=== PATIENT | male | born 1935 | race Caucasian/White ===

== ENCOUNTER → 2016-11-22 | Outpatient (REF) | payer OTHER | LOC: M LAB REF 16:17 | PROVIDERS: ATTEND Internal Medicine | DX: E21.3 Hyperparathyroidism, unspecified (principal) ==

== ENCOUNTER → 2017-05-29 | Outpatient (REF) | payer OTHER ==
[2017-05-29 17:48] LABS: PTH INTACT 58.7 PG/ML (14.0-72.0)
== END ==
LOC: M LAB REF 16:23
DX: N25.81 Secondary hyperparathyroidism of renal origin (principal)
CPT/HCPCS: 83970

== ENCOUNTER 2017-07-18 15:47 | Emergency (ER) | payer OTHER | END 2017-07-18 16:59 | disposition left against medical advice (07) | LOC: M ED 15:47 | DX: Z53.21 Procedure and treatment not carried out due to patient leaving prior to being seen by health care provider (principal) ==

== ENCOUNTER → 2017-07-18 | Outpatient (REF) | payer OTHER | LOC: M LAB REF 15:06 | DX: R10.31 Right lower quadrant pain (principal) ==

== ENCOUNTER → 2017-07-18 | Outpatient (CLI) | payer OTHER ==
[2017-07-18 16:24] LABS: BASO # 0.1 10^3/uL (0.0-0.2); BASO % 0.5 % (0.0-1.0); EOS % 0.1 % (0.0-3.0); HEMATOCRIT 38.4 % (42.0-52.0); HEMOGLOBIN 12.1 g/dl (14.0-18.0); IMMATURE GRANULOCYTE % 0.4 % (0-3.0); LYMPH # 0.5 10^3/uL (1.5-4.5); LYMPH % 4.7 % (24.0-44.0); MEAN CORPUSCULAR HEMOGLOBIN 30.3 pg (27.0-33.0); MEAN CORPUSCULAR HGB CONC 31.5 g/dl (32.0-36.5); MEAN CORPUSCULAR VOLUME 96.2 fl (80.0-96.0); MONO # 1.2 10^3/uL (0.0-0.8); MONO % 10.5 % (0.0-5.0); NEUTROPHILS # 9.2 10^3/uL (1.8-7.7); NEUTROPHILS % 83.8 % (36.0-66.0); PLATELET COUNT, AUTOMATED 219 10^3/uL (150-450); RED BLOOD COUNT 3.99 10^6/uL (4.30-6.10); RED CELL DISTRIBUTION WIDTH 14.3 % (11.5-14.5)
[2017-07-18 16:45] LABS: ALBUMIN 3.8 GM/DL (3.2-5.2); ALBUMIN/GLOBULIN RATIO 1.06 (1.00-1.93); ALKALINE PHOSPHATASE 197 U/L (45-117); ALT/SGPT 23 U/L (12-78); ANION GAP 8 MEQ/L (8-16); AST/SGOT 22 U/L (7-37); BILIRUBIN,TOTAL 0.4 MG/DL (0.2-1.0); BLOOD UREA NITROGEN 30 MG/DL (7-18); CALCIUM LEVEL 8.6 MG/DL (8.8-10.2); CARBON DIOXIDE LEVEL 25 MEQ/L (21-32); CHLORIDE LEVEL 110 MEQ/L (98-107); CREATININE FOR GFR 2.21 MG/DL (0.70-1.30); GLOMERULAR FILTRATION RATE 30.4 (>35); GLUCOSE, FASTING 127 MG/DL (70-100); POTASSIUM SERUM 4.4 MEQ/L (3.5-5.1); SODIUM LEVEL 143 MEQ/L (136-145); TOTAL PROTEIN 7.4 GM/DL (6.4-8.2)
== END ==
LOC: M WUC 14:48
DX: R10.31 Right lower quadrant pain (principal); R93.5 Abnormal findings on diagnostic imaging of other abdominal regions, including retroperitoneum
CPT/HCPCS: 80053

== ENCOUNTER → 2017-10-20 | Outpatient (REF) | payer OTHER ==
[2017-10-20 13:40] LABS: INR 2.59; PROTHROMBIN TIME 28.8 SECONDS (12.4-14.5)
== END ==
LOC: M LAB REF 13:18
DX: M54.5 Low back pain (principal); Z79.01 Long term (current) use of anticoagulants
CPT/HCPCS: 85610

== ENCOUNTER → 2017-10-28 | Outpatient (CLI) | payer OTHER | LOC: M RAD 10:36 | DX: M47.897 Other spondylosis, lumbosacral region (principal); M48.061 Spinal stenosis, lumbar region without neurogenic claudication | CPT/HCPCS: 72131 ==

== ENCOUNTER → 2017-11-27 | Outpatient (REF) | payer OTHER ==
[2017-11-27 12:49] LABS: PTH INTACT 88.7 PG/ML (18.5-88.0)
== END ==
LOC: M LAB REF 12:10
DX: N25.81 Secondary hyperparathyroidism of renal origin (principal)
CPT/HCPCS: 83970

== ENCOUNTER → 2018-06-04 | Outpatient (REF) | payer OTHER ==
[~2018-06-04] MED LIST: ALLO100T PO; BISO5TAB5 PO; BUSP10TA PO; CART240C3 PO; FURO40TA2 PO; HYDR-3910 PO; LIPI10TA PO; LOSA50TA88 PO; PRIL20CA9 PO; TRAZ-160 PO; XARE15TA PO
== END ==
LOC: M LAB REF 12:04
PROVIDERS: ATTEND Internal Medicine
DX: N25.81 Secondary hyperparathyroidism of renal origin (principal); N18.4 Chronic kidney disease, stage 4 (severe)

== ENCOUNTER → 2018-06-11 | Outpatient (REF) | payer OTHER ==
[2018-06-11 13:23] LABS: IRON (FE) 40 UG/DL (65-175); PERCENT SATURATION 9.2 % (19.7-50.0); TOTAL IRON BINDING CAPACITY 435 UG/DL (250-450); TOTAL PROTEIN 6.9 GM/DL (6.4-8.2)
[2018-06-11 13:26] LABS: FOLATE 8.1 NG/ML
[2018-06-12 11:08] LABS: VITAMIN B12 LEVEL 593 PG/ML (232-1245)
[2018-06-12 13:53] LABS: ALBUMIN 3.74 GM/DL (3.29-5.55); ALBUMIN % 54.2 % (55.8-66.1); ALPHA-1-GLOBULIN % 6.6 % (2.9-4.9); ALPHA-1-GLOBULINS 0.46 GM/DL (0.17-0.41)
[2018-06-12 13:54] LABS: ALPHA-2-GLOBULINS 0.91 GM/DL (0.42-0.99); ALPHA-2-GLOBULINS % 13.2 % (7.1-11.8); BETA-1-GLOBULINS 0.52 GM/DL (0.28-0.60); BETA-1-GLOBULINS % 7.6 % (4.7-7.2); BETA-2-GLOBULINS 0.39 GM/DL (0.19-0.55); BETA-2-GLOBULINS % 5.6 % (3.2-6.5); GAMMA GLOBULIN % 12.8 % (11.1-18.8); GAMMA GLOBULINS 0.88 GM/DL (0.65-1.58)
== END ==
LOC: M LAB REF 12:39
PROVIDERS: ATTEND Internal Medicine
DX: D64.9 Anemia, unspecified (principal)

== ENCOUNTER → 2018-07-24 | Outpatient (REF) | payer OTHER ==
[2018-07-24 14:58] LABS: PERCENT SATURATION 11.4 % (19.7-50.0)
== END ==
LOC: M LAB REF 13:31
PROVIDERS: ATTEND Internal Medicine Nephrology
DX: D50.9 Iron deficiency anemia, unspecified (principal)

== ENCOUNTER 2018-09-04 09:49 | Emergency (ER) | payer MEDICARE, OTHER ==
[~2018-09-04] VITALS: Ht 177.8 cm; Wt 82.8 kg
[2018-09-04] MEDS ORDERED: iron (10:16)
[2018-09-04 11:11] LABS: BASO # 0.1 10^3/uL (0.0-0.2); BASO % 1.1 % (0.0-1.0); EOS # 0.1 10^3/uL (0.0-0.50); EOS % 0.9 % (0.0-3.0); HEMOGLOBIN 12.9 g/dl (13.5-17.5); LYMPH # 0.8 10^3/uL (1.5-4.5); LYMPH % 8.7 % (24.0-44.0); MEAN CORPUSCULAR HEMOGLOBIN 31.7 pg (27.0-33.0); MEAN CORPUSCULAR HGB CONC 32.3 g/dl (32.0-36.5); MEAN CORPUSCULAR VOLUME 98.3 fl (80.0-96.0); MONO # 0.8 10^3/uL (0.0-0.8); MONO % 9.2 % (0.0-5.0); NEUTROPHILS # 7.2 10^3/uL (1.8-7.7); NEUTROPHILS % 79.8 % (36.0-66.0); PLATELET COUNT, AUTOMATED 289 10^3/uL (150-450); RED BLOOD COUNT 4.07 10^6/uL (4.30-6.10)
[2018-09-04] MEDS ORDERED: MORPHINE 2 MG/ML 1ML SYRINGE (J2270) IV ONE (11:15)
[2018-09-04] MEDS ORDERED: NS 1,000 ML IV SCH (11:15)
[2018-09-04 11:24] LABS: INR 1.38; PROTHROMBIN TIME 17.2 SECONDS (12.1-14.4)
[2018-09-04 11:25] LABS: PARTIAL THROMBOPLASTIN TIME 38.3 SECONDS (25.4-37.6)
[2018-09-04 11:43] LABS: CALCIUM LEVEL 9.5 MG/DL (8.8-10.2); CREATININE FOR GFR 1.92 MG/DL (0.70-1.30); GLOMERULAR FILTRATION RATE 35.7 (>35); PERCENT SATURATION 17.8 % (19.7-50.0); POTASSIUM SERUM 4.3 MEQ/L (3.5-5.1)
[2018-09-04] MEDS: GASTROGRAFIN SOLUTION 30ML PO SCH ×2 (11:51→12:15)
--- NOTE | 2018-09-04 14:11 | REP ---
CT ABDOMEN AND PELVIS WITHOUT IV, WITH ORAL CONTRAST: CT abdomen and pelvis performed in the axial plain with sagittal and coronal reconstruction images, following oral contrast administration as per standard protocol. There is a large right pleural effusion with adjacent right basilar atelectatic change. There is fibroatelectatic change in the left lung base. The liver is grossly unremarkable. Calcified granulomas are seen in the spleen. The adrenal glands are thickened without a discrete mass. Pancreas is grossly unremarkable. There is significant right renal atrophy. There is no hydronephrosis bilaterally. There are bilateral renal cysts. There is moderate atherosclerotic calcification of the abdominal aorta without aneurysm. I see no adenopathy. There is no free air or free fluid. No bowel thickening is seen. There is no appendicitis. There is extensive sigmoid diverticulosis without acute diverticulitis. Urinary bladder is grossly unremarkable. Multiple metallic densities are seen in the prostate. There is a small left inguinal hernia containing fat and a small portion of nonobstructive sigmoid colon. There is a small umbilical hernia containing fat. There are degenerative changes of the spine. IMPRESSION: Large right pleural effusion. No evidence of colitis. Sigmoid diverticulosis. No appendicitis. No free air or free fluid. Small left inguinal hernia contains fat and a small portion of the sigmoid colon. Electronically Signed by Neel Dias MD 09/05/2018 03:28 P
--- NOTE | 2018-09-04 15:51 | REP ---
HISTORY: Right pleural effusion. COMPARISON: 07/02/2018, the latest prior two view exam. The dual chamber bipolar pacemaker device is unchanged. The technique utilized in obtaining the radiograph has magnified the cardiac silhouette and accentuated the interstitial markings. There is cardiomegaly accentuated by technique, status quo. There is right-sided costophrenic angle and cardiophrenic angle blunting with a right lower patchy opacity essentially unchanged from the prior exam. I see no evidence of an acute patchy parenchymal opacity or pleural effusion. There is a nodule in the left lower lung field which is stable not only from the latest prior examination but from an older examination of 04/22/2014. There is no significant change in the osseous structures. IMPRESSION: Stable appearing chronic changes as described above. Electronically Signed by Grzegorz Lemons DO 09/04/2018 04:00 P
--- NOTE | 2018-09-04 15:56 | REP ---
CT CHEST WITHOUT IV CONTRAST: CT chest is performed without IV contrast. Sagittal and coronal reconstruction images are performed. There is a large right pleural effusion with mild adjacent atelectatic change in the right lung. There is fibroatelectatic change in the left lower lobe with several calcified granulomas. Atherosclerotic calcifications are seen in the thoracic aorta without aneurysm. I see no evidence of significant mediastinal or axillary adenopathy. Heart is not significantly enlarged. There is no pericardial effusion. There are degenerative changes of the spine. IMPRESSION: Large right pleural effusion. No other acute findings. Electronically Signed by Nele Dias MD 09/05/2018 03:30 P
[2018-09-04 15:58] VITALS: O2SAT 98
[2018-09-04 16:00] VITALS: BP 168/72
[2018-09-04] MEDS ORDERED: FUROSEMIDE 40 MG/4 ML VIAL (J1940) IV ONE (16:15)
[2018-09-04] MEDS ORDERED: COLA100C5 PO (16:17)
[2018-09-04] MEDS ORDERED: MIRA3350 PO (16:17)
== END 2018-09-04 16:38 | disposition home or self-care (01) ==
LOC: M ED 09:49
DX: I50.9 Heart failure, unspecified (principal); J90 Pleural effusion, not elsewhere classified; K62.5 Hemorrhage of anus and rectum; C61 Malignant neoplasm of prostate; R63.4 Abnormal weight loss; K57.32 Diverticulitis of large intestine without perforation or abscess without bleeding; Z95.0 Presence of cardiac pacemaker; Z79.899 Other long term (current) drug therapy
CPT/HCPCS: 71045; 71250; 74176; 80048; 83550; 83880; 85025; 85610; 85730; 86850; 86900; 86901; 99284; J1940; J2270; Q9963

== ENCOUNTER → 2018-11-03 | Outpatient (CLI) | payer MEDICARE ==
[~2018-11-03] MED LIST changes: +COLA100C5 PO; +MIRA3350 PO; -TRAZ-160 PO; +TRAZ-252 PO; +iron
--- NOTE | 2018-11-03 10:16 | REP ---
Clinical: Pleural effusion. Technique: PA and lateral. Comparison: 09/04/2018 Findings: Moderate pleural effusion increased from prior examination. Associated right basilar atelectasis. Left hemithorax appears clear. Mediastinum and cardiac silhouette stable. Impression: Moderate right pleural effusion with passive atelectasis. Electronically Signed by Mariusz Mackenzie MD 11/03/2018 10:08 A
== END ==
LOC: M RAD 09:34
PROVIDERS: ATTEND Internal Medicine Cardiovascular Disease
DX: J90 Pleural effusion, not elsewhere classified (principal)

== ENCOUNTER → 2018-11-30 | Outpatient (CLI) | payer MEDICARE ==
--- NOTE | 2018-11-30 12:07 | REP ---
Clinical: Follow up pleural effusion. Technique: PA and lateral. Comparison: 11/03/2018. Findings: Visualized mediastinum and cardiac silhouette are normal. Left hemithorax is relatively well aerated and stable / clear. Few scattered calcified granulomata are again noted. Elevation to the right hemidiaphragm with pleuroparenchymal changes involving the right mid to lower lung zone remain essentially unchanged. These findings may reflect chronic changes although an acute atelectasis or effusion cannot be excluded. No pneumothorax. Skeletal structures intact. Pacemaker noted. Impression: Essentially stable appearance to the right hemithorax as described above. Findings likely represent chronic changes although acute process cannot definitively be excluded. Electronically Signed by Mariusz Mackenzie MD 11/30/2018 11:58 A
== END ==
LOC: M WUC 11:38
PROVIDERS: ATTEND Internal Medicine Cardiovascular Disease
DX: J90 Pleural effusion, not elsewhere classified (principal)

== ENCOUNTER → 2019-05-07 | Outpatient (REF) | payer MEDICARE ==
[~2019-05-07] MED LIST changes: -BISO5TAB5 PO; +BISO5TAB9 PO
[2019-05-07 17:59] LABS: ALBUMIN 3.4 GM/DL (3.2-5.2); CALCIUM LEVEL 9.5 MG/DL (8.8-10.2); CREATININE FOR GFR 2.93 MG/DL (0.70-1.30); GLOMERULAR FILTRATION RATE 21.9 (>35); MAGNESIUM LEVEL 2.3 MG/DL (1.8-2.4); PHOSPHORUS LEVEL 3.4 MG/DL (2.5-4.9); POTASSIUM SERUM 3.4 MEQ/L (3.5-5.1); URIC ACID 7.5 MG/DL (3.5-7.2)
== END ==
LOC: M LAB REF 17:26
PROVIDERS: ATTEND Internal Medicine Nephrology
DX: N18.3 Chronic kidney disease, stage 3 (moderate) (principal); M1A.30X0 Chronic gout due to renal impairment, unspecified site, without tophus (tophi); E83.42 Hypomagnesemia

== ENCOUNTER → 2019-05-07 | Outpatient (CLI) | payer MEDICARE ==
[~2019-05-07] MED LIST changes: +ACET-683 PO; +BISO5TAB14 PO; -BISO5TAB9 PO; +HYDR1CRE9 TOP; +OMEP1CAP73 PO; +POTA10TA16 PO; +ZYLO300T6 PO
[2019-05-07 17:49] LABS: HEMATOCRIT 37.9 % (42.0-52.0); HEMOGLOBIN 12.3 g/dl (13.5-17.5); MEAN CORPUSCULAR HEMOGLOBIN 34.6 pg (27.0-33.0); MEAN CORPUSCULAR HGB CONC 32.5 g/dl (32.0-36.5); MEAN CORPUSCULAR VOLUME 106.8 fl (80.0-96.0); PLATELET COUNT, AUTOMATED 242 10^3/uL (150-450); RED BLOOD COUNT 3.55 10^6/uL (4.30-6.10); WHITE BLOOD COUNT 7.9 10^3/uL (4.0-10.0)
[2019-05-07 18:05] LABS: CREATININE FOR GFR 3.05 MG/DL (0.70-1.30); GLOMERULAR FILTRATION RATE 20.9 (>35); POTASSIUM SERUM 3.5 MEQ/L (3.5-5.1)
--- NOTE | 2019-05-07 19:15 | REP ---
Chest x-ray: Two views. History: Dyspnea on exertion. Comparison chest x-ray: November 30, 2018. Findings: There is blunting of the right lateral pleural angle with pleural opacity filling the lower half of the right hemithorax consistent with a moderate right pleural effusion. This is increased from the most recent prior study of November 30, 2018 and is considerably larger than on the September 20, 2018 prior study. Cardiomegaly is observed. There is a bipolar pacemaker again noted in the right heart. Pulmonary vasculature is not increased. The left pleural angles are sharp. Impression: Moderate right pleural effusion, increased from prior study. Electronically Signed by Hollis Weems MD 05/07/2019 07:33 P
== END ==
LOC: M WUC 11:35
PROVIDERS: ATTEND Nurse Practitioner Family
DX: J90 Pleural effusion, not elsewhere classified (principal); R06.09 Other forms of dyspnea; N18.4 Chronic kidney disease, stage 4 (severe); M1A.30X0 Chronic gout due to renal impairment, unspecified site, without tophus (tophi); E83.42 Hypomagnesemia; Z95.0 Presence of cardiac pacemaker

== ENCOUNTER → 2019-05-17 | Outpatient (CLI) | payer MEDICARE ==
[2019-05-17 11:55] LABS: INR 1.16; PROTHROMBIN TIME 14.5 SECONDS (11.8-14.0)
[2019-05-17 13:34] LABS: LDH, BODY FLUID 108 U/L (NOT ESTABLISHED); SOURCE, BODY FLUID GLUCOSE PLEURAL; SOURCE, BODY FLUID LDH PLEURAL; SOURCE, BODY FLUID TOT PROTEIN PLEURAL; TOTAL PROTEIN, BODY FLUID 3.7 G/DL (NOT ESTABLISHED)
[2019-05-17 13:56] LABS: SOURCE, BODY FLUID ALBUMIN PLEURAL
[2019-05-17 15:06] VITALS: BP 112/56
--- NOTE | 2019-05-17 18:05 | REP ---
Chest x-ray: Two views. History: Post right thoracentesis. Comparison chest x-ray May 07, 2019. Findings: There is a decrease in the size of the right pleural effusion. There is a small apical pneumothorax and air-fluid levels visible in the right chest. The left lung remains clear except for a granulomatous calcification. Bipolar pacemaker is seen. Impression: Small right-sided pneumothorax post thoracentesis. Decreased amount of right pleural fluid. Suggest follow-up chest x-ray. Electronically Signed by Hollis Weems MD 05/17/2019 05:55 P
--- NOTE | 2019-05-17 21:02 | REP ---
Ultrasound-guided right thoracentesis The procedure was performed under the direct supervision of Dr. Weems. The risks and benefits of the procedure were explained to the patient and informed consent was obtained. The right pleural effusion was localized using ultrasound guidance. The skin was prepped and draped in a sterile fashion. 1% lidocaine was used as a local anesthetic. An 8-Turkish multi side-hole catheter was inserted using trocar technique. 1350 ml of low viscosity red colored fluid was withdrawn with a sample sent to the lab for analysis. The patient tolerated the procedure well and there were no immediate complications. After the appropriate amount of monitored convalescence the patient was discharged from the department. Electronically Signed by JESSE Fung 05/17/2019 03:40 P Electronically Signed by Hollis Weems MD 05/17/2019 08:44 P
== END ==
LOC: M IRPRO 11:00
PROVIDERS: ATTEND Nurse Practitioner Family
DX: J95.811 Postprocedural pneumothorax (principal); R84.6 Abnormal cytological findings in specimens from respiratory organs and thorax; I48.20 Chronic atrial fibrillation, unspecified; J90 Pleural effusion, not elsewhere classified

== ENCOUNTER 2019-05-20 09:40 | Inpatient (IN) | payer MEDICARE ==
[~2019-05-20] VITALS: Ht 177.8 cm; Wt 81.1 kg
[~2019-05-20 09:40] MED LIST changes: -ACET-683 PO; -HYDR1CRE9 TOP; -OMEP1CAP73 PO; -POTA10TA16 PO; -ZYLO300T6 PO
[2019-05-20] MEDS ORDERED: POTA10TA16 PO (09:54)
[2019-05-20] MEDS ORDERED: HYDR-3910 PO (09:54)
[2019-05-20 10:20] LABS: BASO # 0.1 10^3/uL (0.0-0.2); EOS # 0.1 10^3/uL (0.0-0.5); EOS % 0.9 % (0.0-3.0); HEMATOCRIT 40.9 % (42.0-52.0); HEMOGLOBIN 12.8 g/dl (13.5-17.5); LYMPH # 0.7 10^3/uL (1.5-5.0); LYMPH % 8.3 % (24.0-44.0); MEAN CORPUSCULAR HEMOGLOBIN 33.1 pg (27.0-33.0); MEAN CORPUSCULAR HGB CONC 31.3 g/dl (32.0-36.5); MEAN CORPUSCULAR VOLUME 105.7 fl (80.0-96.0); MONO # 0.8 10^3/uL (0.0-0.8); MONO % 10.4 % (0.0-5.0); NEUTROPHILS # 6.2 10^3/uL (1.5-8.5); NEUTROPHILS % 78.4 % (36.0-66.0); PLATELET COUNT, AUTOMATED 252 10^3/uL (150-450); RED BLOOD COUNT 3.87 10^6/uL (4.30-6.10); WHITE BLOOD COUNT 7.9 10^3/uL (4.0-10.0)
[2019-05-20 11:09] LABS: INR 2.81; PROTHROMBIN TIME 29.5 SECONDS (11.8-14.0)
[2019-05-20 11:10] LABS: PARTIAL THROMBOPLASTIN TIME 46.9 SECONDS (25.0-38.4)
[2019-05-20] MEDS ORDERED: ZYLO300T6 PO (11:30)
[2019-05-20] MEDS ORDERED: OMEP1CAP73 PO (11:30)
[2019-05-20] MEDS ORDERED: HYDR1CRE9 TOP (11:30)
[2019-05-20] MEDS ORDERED: ACET-683 PO (11:30)
[2019-05-20] MEDS ORDERED: OXAZEPAM 10 MG CAP PO PRN (12:30)
[2019-05-20] MEDS ORDERED: PHYTONADIONE 5 MG TAB PO ONE (12:45)
[2019-05-20 13:15] LABS: ALBUMIN 3.4 GM/DL (3.2-5.2); ALT/SGPT 14 U/L (12-78); BILIRUBIN,DIRECT 0.2 MG/DL (0.0-0.2); BILIRUBIN,TOTAL 0.4 MG/DL (0.2-1.0); CPK CREATINE PHOSPHOKINASE 112 U/L (39-308); TROPONIN I < 0.02 NG/ML (< 0.10)
[2019-05-20 13:19] LABS: MB/CK RELATIVE INDEX 4.46 (< OR =4); NT-PRO BNP 7683 PG/ML (<450); THYROID STIMULATING HORMONE 0.925 uIU/ML (0.358-3.740)
[2019-05-20 13:59] LABS: BLOOD UREA NITROGEN 44 MG/DL (7-18); CALCIUM LEVEL 8.8 MG/DL (8.8-10.2); CARBON DIOXIDE LEVEL 25 MEQ/L (21-32); CHLORIDE LEVEL 105 MEQ/L (98-107); CREATININE FOR GFR 2.54 MG/DL (0.70-1.30); GLOMERULAR FILTRATION RATE 25.8 (>35); GLUCOSE, FASTING 128 MG/DL (70-100); POTASSIUM SERUM 4.5 MEQ/L (3.5-5.1); SODIUM LEVEL 140 MEQ/L (136-145)
[2019-05-20 14:23] VITALS: BP 121/74
[2019-05-20 15:49] VITALS: BP 93/51
--- NOTE | 2019-05-20 15:55 | HPEPDOC ---
General Date of Admission May 20, 2019 at 12:26 Date of Service: May 20, 2019 Chief Complaint The patient is a 84-year-old male admitted with a reason for visit of Pleural Effusion Pneumothorax On Rt. Source: Patient, Family, RN/MD, Old records History of Present Illness 84 year old male with PMH of CHF with preserved EF, atrial fibrllation with pacemeker, hypertension, on xarelto had a second episode of right sided pleural effusion. He had a pelural tap done on 05/17/19 with removal of 1350 ml of fluid. Post procedure CXR showed a small pneumothorax. He was caled to get a follow up CXR the next day but did not have it till today and was told that his pneumothorax has increased and sent to the ED, Patient complained of some increased cough since the tap and possibly some increased SOB today. He denied any fever or chills. Patient also said that he has dropped about 20 lbs in the past year unintentionally and his appetite has been poor. CXR from today showed significant right pnumothorax and pleural fluid which was unchanged from the film from before the tapping. Patient is on Xarelto with elevated INR. General surgery was consulted and patient discussed with Pulmonary. Pateint was admitted for Moderate right pneumothorax and persistent right pleural effusion which is essentially unchanged. Home Medications Scheduled Acetaminophen (Acetaminophen) 500 Mg Tablet, 500 MG PO QHS, (Reported) Allopurinol (Zyloprim) 300 Mg Tablet, 300 MG PO QHS, (Reported) Bisoprolol Fumarate (Bisoprolol Fumarate) 5 Mg Tab, 5 MG PO DAILY, (Reported) Diltiazem HCl (Cartia Xt) 240 Mg Cap, 240 MG PO BID, (Reported) Furosemide (Furosemide) 40 Mg Tab, 40 MG PO DAILY, (Reported) Hydralazine HCl (Hydralazine HCl) 25 Mg Tablet, 25 MG PO TID, (Reported) Hydrocortisone (Hydrocortisone) 28 Gm Cream..g., 1 APLCT TOP DAILY, (Reported) APPLY TO LEFT HAND Omeprazole (Omeprazole) 20 Mg Capsule.dr, 20 MG PO DAILY, (Reported) Potassium Chloride (Potassium Chloride) 10 Meq Tab.er.prt, 10 MEQ PO QHS, (Reported) Rivaroxaban (Xarelto) 15 Mg Tab, 15 MG PO DAILY, (Reported) Trazodone HCl (Trazodone HCl) 50 Mg Tab, 50 MG PO QHS, (Reported) Allergies Coded Allergies: No Known Allergies (Unverified , 09/04/18) Past Medical History Medical History Recurrent pleural effusion CHF with preserved EF. CKD Hyperuricemia Hypertension Chronic Afib Sick sinus syndrome s/p pacemaker Peripheral arterial disease Carotid artery disease h/o prostate cancer with seeds Kidney stone Hyperlipidemia Chronic back pain Surgical History Pacemaker placement Right carotid endarterectomy right knee replacement Family History Significant Family History: Cancer Mother colon cancer. Social History * Smoker: former Smoker, quit greater than 1 year Alcohol: other (daily 2 whiskeys, beofre used to drink during weekends more) Drugs: denies A-FIB/CHADSVASC A-FIB History Current/History of A-Fib/PAF?: Yes Current PO Anticoag Therapy: Yes Review of Systems Constitutional: Reports: Weight Loss; Denies: Chills, Fever, Night Sweats Eyes: Denies: Pain, Vision change ENT: Denies: Head Aches, Ear Pain, Dysphagia Skin: Denies: Rash, Lesions, Breakdown Pulmonary: Reports: Dyspnea, Cough Cardiovascular: Denies: Chest Pain, Palpitations, Orthopnea, Paroxysmal Noc. Dyspnea, Lt Headedness Gastrointestinal: Denies: Nausea, Vomiting, Abdominal Pain, Diarrhea Genitourinary: Denies: Dysuria, Frequency, Incontinence, Retention Musculoskeletal: Reports: Back Pain Neurological: Denies: Weakness, Numbness, Change in speech, Confusion Physical Examination General Exam: Positive: Alert, Cooperative, No Acute Distress Eye Exam: Positive: PERRLA, Conjunctiva & lids normal, EOMI; Negative: Sclera icteric ENT Exam: Positive: Atraumatic, Mucous membr. moist/pink, Pharynx Normal Neck Exam: Positive: Supple; Negative: JVD, thyromegaly Chest Exam: Positive: Diminished (breath sounds on the right ), Other (normal air movement on the left with no added sounds.) Heart Exam: Positive: Rate Normal, Regular Rhythm, Normal S1, Normal S2, Murmurs (systolic best heard in [place] apical region.); Negative: Rubs Telemetry: Positive: Atrial fibrillation Abdomen Exam: Positive: Normal bowel sounds, Soft; Negative: Tenderness, Hepatospenomegaly Extremity Exam: Positive: Normal pulses; Negative: Clubbing, Cyanosis, Edema Skin Exam: Positive: Nl turgor and temperature; Negative: Breakdown, Lesion Vital Signs Vital Signs Date Time Temp Pulse Resp B/P (MAP) Pulse Ox O2 Delivery O2 Flow Rate FiO2 05/20/19 13:30 75 131/77 (95) 93 05/20/19 09:41 96.5 16 Room Air Laboratory Data Labs 24H Laboratory Tests 2 05/20/19 09:59: Immature Granulocyte % (Auto) 1.0, Neutrophils (%) (Auto) 78.4H, Lymphocytes (%) (Auto) 8.3L, Monocytes (%) (Auto) 10.4H, Eosinophils (%) (Auto) 0.9, Basophils (%) (Auto) 1.0, Neutrophils # (Auto) 6.2, Lymphocytes # (Auto) 0.7L, Monocytes # (Auto) 0.8, Eosinophils # (Auto) 0.1, Basophils # (Auto) 0.1, Nucleated Red Blood Cells % (auto) 0.0, Anion Gap 10, Glomerular Filtration Rate 25.8L, Calcium Level 8.8, Total Bilirubin 0.4, Direct Bilirubin 0.2, Aspartate Amino Transf (AST/SGOT) 17, Alanine Aminotransferase (ALT/SGPT) 14, Alkaline Phosphatase 239H, Total Creatine Kinase 112, Creatine Kinase MB 5.0H, Creatine Kinase MB Relative Index 4.46H, Troponin I < 0.02, CK-Otr-D-Type Natriuretic Peptide 7683H, Total Protein 7.0, Albumin 3.4, Albumin/Globulin Ratio 0.94L, Thyroid Stimulating Hormone (TSH) 0.925 05/20/19 10:02: Prothrombin Time 29.5H, Prothromb Time International Ratio 2.81, Activated Partial Thromboplast Time 46.9H CBC/BMP Laboratory Tests 05/20/19 09:59 Microbiology Microbiology 05/20/19 Blood Culture, Received Pending Assessment/Plan 84 year old male with PMH of CHF with preserved EF, atrial fibrllation with pa cemeker, hypertension, on xarelto had a second episode of right sided pleural effusion. He had a pelural tap done on 05/17/19 with removal of 1350 ml of fluid. Post procedure CXR showed a small pneumothorax. He was caled to get a follow up CXR the next day but did not have it till today and was told that his pneumothorax has increased and sent to the ED, Patient complained of some increased cough since the tap and possibly some increased SOB today. He denied any fever or chills. Patient also said that he has dropped about 20 lbs in the past year unintentionally and his appetite has been poor. CXR from today showed significant right pnumothorax and pleural fluid which was unchanged from the f ilm from before the tapping. Patient is on Xarelto with elevated INR. General surgery was consulted and patient discussed with Pulmonary. Pateint was admitted for Moderate right pneumothorax and persistent right pleural effusion which is essentially unchanged. Right Hydropneumothorax will place on non rebreather oxygen overnight repeat CXR in Pm and AM to see if it is resolving or not will need a chest tube if does not improve Dr Herrera from surgery on consult Right persistent pleural effusion etiology not yet determined Prior pleural effusion from AUGUST 2018 was negative for malignancy. could be CHF or liver disease patient does have significant alcohol history. CHF no recent echo in system will continue home diuretics Dr Vee consulted Afib hold xarelto will give vit k as INR is elevated. continue other home meds. Hypertension continue home meds Plan / VTE VTE Prophylaxis Ordered?: Yes DON LALA MD May 20, 2019 15:55
[2019-05-20] MEDS ORDERED: **hydrALAZINE HCL** 25 MG TAB PO SCH (16:00)
[2019-05-20] MEDS ORDERED: FLUBLOK(EGG FREE)(QUAD)INFLUENZA VACC 0.5ML SYRINGE (90682)18YRS&OLDER IM PRN (17:00)
[2019-05-20] MEDS ORDERED: PHYTONADIONE 10MG/ML INJECTION (J3430) SC ONE (18:30)
--- NOTE | 2019-05-20 19:44 | CR ---
DATE OF CONSULTATION: 05/20/2019 BRIEF HISTORY OF PRESENT ILLNESS: The patient is an 84-year-old male who has had some problems with congestive heart failure, right pleural effusion and has had a previous thoracentesis a couple times, and had a thoracentesis last week on 05/17/2019 and noticed that he may have a small pneumothorax postprocedure. Approximately 1300 mL of fluid was removed, which was bloody fluid. The cytology revealed no significant malignancy. However, cell block was still pending. The patient was instructed to get a followup chest x-ray the next day but waited until today to come back to the emergency room because of some mild increase of shortness of breath. The patient unfortunately took his Xarelto again this morning, and I was asked to see him for possible insertion of chest tube. Not only is he on Xarelto, but his INR is elevated to 2.9. He does have a history of drinking, and I do not see a history of cirrhosis in his history. PAST MEDICAL HISTORY: Significant for a history of recurrent pleural effusion, history of congestive heart failure with chronic kidney disease, hyperuricemia, hypertension, chronic atrial fibrillation, sick sinus syndrome with pacemaker placement, history of prostate cancer, kidney stones, hyperlipidemia, chronic back pain. MEDICATIONS: Include Tylenol, allopurinol, bisoprolol, Cartia, Lasix, hydralazine, hydrocortisone, omeprazole, potassium chloride, Xarelto and trazodone. PHYSICAL EXAM: Reveals an elderly male who looks stated age. HEENT is unremarkable. Neck: Supple without adenopathy. He does not seem short of breath at this point when I am talking with him. He does not have decreased sentence structure or gasping at any time. He does not use any accessory muscles. He has significantly diminished breath sounds on the right-hand side, and his heart sounds are irregularly irregular. Abdomen is soft, nontender, nondistended. IMPRESSION AND PLAN: The patient has a history of recent thoracentesis with a postprocedure pneumothorax. At this point, it is hard to know if this is any different than it was over the weekend. More importantly, because of his current situation where he does not seem in any significant distress and with his significant anticoagulation, would recommend that we place him on some oxygen supplementation overnight and reevaluate him with some serial chest x-rays. Also, we can attempt to reverse some of his anticoagulation issues if possible and will hold his on placing his chest tube. If urgent intervention is necessary, we can place a smaller chest in the apex for decompression. It is hard to know if what the etiology of the pneumothorax is; once again, if this is a somewhat trapped lung that after removal of fluid, some of the scarring caused trauma to the lung itself or what the etiology is, but at this point, given his stability, will see how he is doing over the ensuing hours. RAFFAELE
[2019-05-20] MEDS: POTASSIUM CHLORIDE 10 MEQ SR TABLET PO SCH (19:53)
[2019-05-20] MEDS: allopurinoL 300 MG TAB PO SCH (19:53)
[2019-05-20 20:00] VITALS: BP 108/59
--- NOTE | 2019-05-20 20:24 | CR ---
DATE OF CONSULTATION: 05/20/2019 REFERRING PHYSICIAN: Dr. Darling INDICATION: Right-sided pleural effusion and pneumothorax. HISTORY OF PRESENT ILLNESS: Mr. Medrano is known to me. He is a rather delightful 84-year-old man whom I have known for several years. He has chronic atrial fibrillation, has a history of pacemaker placement and chronic diastolic congestive heart failure. He also has chronic renal insufficiency. He underwent thoracentesis for recurrent right-sided pleural effusion. This was his second thoracentesis, first one was in August 2018. Unfortunately, back then the sample was not sent for appropriate analysis, and consequently we decided to repeat the thoracentesis for diagnostic purposes. Most importantly, I wanted to make sure that this is definitely transudate and not exudate. Approximately 1300 mL of fluid were evacuated, and there was small pneumothorax detected by x-ray. Patient comes for followup chest x-ray today and because the pneumothorax was getting bigger, the decision was made to admit the patient for further management. The patient tells me that he has been feeling well at rest, but with activity, gets short of breath very rapidly. He denies any chest discomfort. He has been coughing with production of clear sputum. He also reports significant weight loss. He believes that over the last 8-12 months, lost approximately 30 pounds. He denies any fever, chills, nausea, vomiting or diarrhea. PAST MEDICAL HISTORY: 1. Chronic atrial fibrillation. 2. Pacemaker placement. 3. Carotid artery disease. 4. Recurrent right pleural effusion. 5. Stage IV renal insufficiency. 6. Peripheral vascular disease. 7. Anemia. SURGICAL HISTORY: Positive for pacemaker placement, right carotid endarterectomy and right knee replacement. SOCIAL HISTORY: The patient used to smoke but quit in 2000. He reports alcohol use but not in a long time to any significance, currently drinks maybe one or two drinks once or twice a week. He is . FAMILY HISTORY: His mother of colon cancer. REVIEW OF SYSTEMS: As per history of the present illness; otherwise essentially negative. Specifically, denies any chest pain, palpitations, dizziness, near/syncope, genitourinary symptoms, peripheral edema. He reports reasonably good appetite. PHYSICAL EXAMINATION: Mr. Medrano is an 84-year-old man who appears physically fairly strong, certainly younger than his calendar age. Last set of vital signs: Blood pressure 122/70, heart rate in 70s intermittent ventricular pacing and spontaneously conducted atrial fibrillation. Saturation is 93% on room air. He is afebrile. Weight is recorded at 74 kg. He is alert and oriented and appropriate. I do not appreciate jugular venous pressure (JVP) elevation. Lungs are clear on the left. On the right, there are diminished breath sounds approximately half of the lung field, and there is some dullness to percussion in upper segments of his right lung field. Heart Exam: Reveals irregular rhythm. There is a blowing murmur at the apex, about 3/6 intensity. There is also a faint murmur over the aortic valve. Abdomen is soft. No hepatosplenomegaly is appreciated. I do not appreciate peripheral edema. Neurologically, he is intact and in good spirits. LABORATORY DATA: Basic metabolic panel today: Sodium 140, potassium 4.5, BUN 44, creatinine 2.5, GFR 26, glucose 128, troponin I is negative and N-terminal pro-BNP 7700. CBC: Hemoglobin 12.8, hematocrit 40 and platelet count 252,000. INR is 2.8. Chest x-ray reveals presence of large right pleural effusion with right-sided pneumothorax that it is not appreciably changed since this morning. Left lung field appears clear. I do not appreciate any obvious cardiomegaly. I could not find an ECG on file. ASSESSMENT/PLAN: Mr. Medrano is an 84-year-old man who has chronic atrial fibrillation, chronic renal insufficiency and recurrent pleural effusion. We were dealing with it on an outpatient basis, but unfortunately, increasing the diuretic dosing always led to deterioration of renal function. The fluid analysis that was performed on Monday this time is somewhat indeterminate; the glucose was 137, total protein 3.7, albumin 2.1 and LDH 108. I do not have any doubt that the patient has congestive heart failure, but the weight loss and poor response to increasing diuretics makes me worried that there is a secondary cause to his prior pleural effusion. I am also concerned that the analysis is not clearly pointing towards transudative effusion. I am going to request serum LDH and protein with tomorrow morning's labs. At this point, will see what the chest x-ray shows tomorrow morning. If there is no improvement in pneumothorax, I think he will need a chest tube. As far as management in the interim, I do not appreciate any volume overload, and he is written for only 40 mg of Lasix, which is probably not much considering the degree of renal dysfunction. I am going to hold the medication tomorrow morning. As far as the atrial fibrillation is concerned, it is reasonably well controlled with combination of bisoprolol and diltiazem. The anticoagulation has been held in preparation for potential thoracic interventions. I had a discussion with the patient and his son and daughter who are at bedside that regardless of the etiology of pleural effusion, unfortunately it is a serious problem. I explained that he may need a chest tube placed and also that regardless of the etiology, the management will be challenging. I will follow the patient with you. RAFFAELE
--- NOTE | 2019-05-20 20:33 | REP ---
PA and lateral chest, stat request: Comparison is from 08:48 a.m. earlier today. There is a large right hydropneumothorax, not significantly changed. The right lung is clear. No mediastinal shift. Cardiac size cannot be assessed, right cardiac margin is obscured. The visualized portions of the naye and mediastinum are unremarkable. Skeletal structures are unremarkable. There is a dual-chamber pacemaker, unchanged. There are surgical clips in the soft tissues of the neck on the right. Impression: Large right hydropneumothorax, unchanged from 08:48 a.m. earlier today. Electronically Signed by Neel Bell MD 05/20/2019 08:25 P
[2019-05-20] MEDS: ACETAMINOPHEN 500 MG TAB PO SCH (22:26)
[2019-05-20] MEDS: traZODone 50 MG TAB PO SCH (22:26)
[2019-05-21] VITALS: BP 114/68
[2019-05-21 04:00] VITALS: BP 124/67
[2019-05-21 04:58] LABS: INR 1.71; PROTHROMBIN TIME 19.8 SECONDS (11.8-14.0)
[2019-05-21 04:59] LABS: PARTIAL THROMBOPLASTIN TIME 42.5 SECONDS (25.0-38.4)
[2019-05-21 05:24] LABS: ALBUMIN 2.6 GM/DL (3.2-5.2); BILIRUBIN,TOTAL 0.3 MG/DL (0.2-1.0); CREATININE FOR GFR 2.18 MG/DL (0.70-1.30); GLOMERULAR FILTRATION RATE 30.8 (>35); POTASSIUM SERUM 4.1 MEQ/L (3.5-5.1); TOTAL PROTEIN 5.9 GM/DL (6.4-8.2)
--- NOTE | 2019-05-21 06:05 | ECGEPIP ---
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
--- NOTE | 2019-05-21 07:01 | ECGEPIP ---
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 : 1935 Requested By: Tamia Vee Order Number: [id number] Reading MD: Florentino Elliott Measurements Intervals [place] Rate: 75 P: CO: 0 QRS: -69 QRSD: 146 T: -35 QT: 408 QTc: 457 Interpretive Statements Atrial fibrillation with a controlled ventricular response Paced ventricular complexes are evident in the latter part of the tracing [place] complexes demonstrate low-voltage in the limb leads, left axis deviation a and nonspecific repolarization abnormalities Compared to prior tracing of earlier this date, pacemaker activity is more frequent but the configuration of [place] complexes is unchanged Electronically Signed on 05-21-2019 7:01:00 EST by Florentino Elliott
--- NOTE | 2019-05-21 07:42 | IPN ---
DATE: 05/21/2019 Mr. Medrano had a relatively uneventful night. He had trouble keeping the non-rebreather oxygen on, but other than that did not have any problems. His ECG and telemetry continues to reveal atrial fibrillation with on demand ventricular pacing. No significant arrhythmias otherwise. He denies any dyspnea this morning, but he has not gotten out of bed yet. Chest x-ray has not been performed yet. Vital signs: Blood pressure 124/67, heart rate in the 70s and irregular. He is afebrile. Saturation was in high 90s on nonrebreather oxygen. Weight is 77.5 kg. He is alert and oriented appropriate. His JVP is not high. Lungs are clear on the left, on the right there are definitely diminished breath sounds with dullness to percussion at least half way up to his right lung field. There is again absent sound and hypersonic percussion above, which makes me think he still has fairly large pneumothorax. Abdomen is soft, nontender. There is no edema. LABORATORIES: There was no CBC drawn this morning. Basic metabolic panel showed sodium 142, potassium 4.1, BUN 39, creatinine 2.2, glucose 109, normal liver function tests, alkaline phosphatase 203 and albumin 2.6, total protein was 5.9 ASSESSMENT/PLAN: Mr. Medrano is an 84-year-old man who has chronic atrial fibrillation, chronic diastolic heart failure who presented with recurrent large right pleural effusion. On an outpatient basis we tried to handle it by increasing diuresis, which led to worsening renal function. I was never totally certain that this effusion is transudate and consequently we referred him for thoracentesis on Monday, and 1300 mL of fluid were eliminated and unfortunately, the procedure was complicated by development of pneumothorax that has been persistent. The fluid analysis though, even though technically it is borderline between transudate and exudate, I think that overall it is more likely to be transudative. Unfortunately, it is not making the management any easier because of his renal insufficiency. He will have a followup chest x-rays later today but I am afraid that he will need placement of a chest tube. I also ordered an echocardiogram because he has a murmur highly suggestive of mitral insufficiency and to the best of my information sources it has not been shown before. I will continue following the patient with you. Unfortunately, the patient himself does not have much insight into the seriousness of his condition. He repeatedly kept asking me whether he will be able to go home today, but I explained to him that this is not realistic.
[2019-05-21 08:00] VITALS: BP 142/76
[2019-05-21 08:07] LABS: HEMOGLOBIN 11.4 g/dl (13.5-17.5); MEAN CORPUSCULAR HEMOGLOBIN 33.3 pg (27.0-33.0); MEAN CORPUSCULAR HGB CONC 31.7 g/dl (32.0-36.5); MEAN CORPUSCULAR VOLUME 105.3 fl (80.0-96.0); PLATELET COUNT, AUTOMATED 193 10^3/uL (150-450); RED BLOOD COUNT 3.42 10^6/uL (4.30-6.10); WHITE BLOOD COUNT 5.3 10^3/uL (4.0-10.0)
[2019-05-21 08:21] LABS: INR 1.56; PARTIAL THROMBOPLASTIN TIME 39.5 SECONDS (25.0-38.4); PROTHROMBIN TIME 18.4 SECONDS (11.8-14.0)
--- NOTE | 2019-05-21 08:53 | REP ---
Chest x-ray: Two views. History: Right-sided hydropneumothorax. Follow-up. Findings: There has been a further increase in the size of the both the right-sided pneumothorax and the right-sided hydrothorax since yesterday's radiograph. The left lung remains clear. There is no definite mediastinal shift. There is some widening of the intercostal spaces on the right. There are granulomatous calcifications on the left. Pacemaker remains in place. Impression: Interval further increase in the size of the right-sided hydropneumothorax since the May 20, 2019 radiograph. Electronically Signed by Hollis Weems MD 05/21/2019 08:44 A
[2019-05-21] MEDS ORDERED: FUROSEMIDE 40 MG TAB PO SCH (09:00)
[2019-05-21] MEDS: bisoproloL fumarate 5 MG TAB PO SCH (10:11)
[2019-05-21] MEDS: OMEPRAZOLE 20 MG CAP PO SCH (10:12)
--- NOTE | 2019-05-21 10:31 | REP ---
Portable chest, 10:08 a.m., single AP view with the patient upright: Comparison is from 08:18 a.m. earlier today. There has been interval placement of a right chest tube. The right pneumothorax has significantly decreased in size. The right pleural effusion has decreased. Left lung is clear. Cardiac size is normal. There is a dual-chamber pacemaker, unchanged. Electronically Signed by Neel Bell MD 05/21/2019 10:23 A
--- NOTE | 2019-05-21 10:47 | IPN ---
DATE OF SERVICE: 05/21/2019 CHIEF COMPLAINT: Shortness breath, right pneumothorax. Followup chest x-ray this morning revealed an increasing pneumothorax with a fluid portion of it, as well, but essentially the pneumothorax was enlarging, and the patient on his physical examination has diminished breath sounds, as well as increase some shortness breath visualized today. IMPRESSION AND PLAN: The patient has evidence of increasing pneumothorax. I have discussed placement of a chest tube, risks as well as benefits associated with this; and the patient would like to proceed with this as scheduled. He understands the risks include but are not limited to infection, bleeding, damage to surrounding structures including the lung, and also understands there may be a need for additional drainage tubes or more procedures depending on his resolution of symptoms.
--- NOTE | 2019-05-21 10:59 | RO ---
DATE OF PROCEDURE: 05/20/2019 PREOPERATIVE DIAGNOSIS: Right hydropneumothorax status post thoracentesis. POSTOPERATIVE DIAGNOSIS: Right hydropneumothorax status post thoracentesis. PROCEDURE: Right chest tube placement. 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 ESTIMATED BLOOD LOSS: Minimal. BRIEF PROCEDURE SUMMARY: The patient was left in his intensive care unit (ICU) bed, was prepped and draped in the usual sterile fashion. An anterior small chest tube was placed with local first to infiltrate the skin, subcutaneous tissue down into the pleural cavity and air was suctioned with a finder needle and then through this site a drainage catheter was placed hooked up to the Pleur-Evac and after assisting the suctioning removal of the fluid the total fluid removed was 800 mL and there was still more fluid comingm, and also some air was removed as well with this. Postoperative chest x-ray reveals decreasing fluid as well as improved pneumothorax but not completely resolved. Plan is to get some follow-up x-rays tomorrow morning and to then proceed with additional treatment depending on his overall improvement.
--- NOTE | 2019-05-21 11:06 | IPNPDOC ---
Subjective Date Seen The patient was seen on 05/21/19. Subjective Chief Complaint/HPI No overnight acute events, continues to be SOB on ambulation , denies any symptoms while laying down. CXR this am worse . Chest tube will be placed by Surgery. Objective Physical Examination General Exam: Positive: Alert, Cooperative, No Acute Distress Eye Exam: Positive: PERRLA, Conjunctiva & lids normal, EOMI; Negative: Sclera icteric ENT Exam: Positive: Atraumatic, Mucous membr. moist/pink, Pharynx Normal Neck Exam: Positive: Supple; Negative: JVD, thyromegaly Chest Exam: Positive: Diminished (breath sounds on the right ), Other (normal air movement on the left with no added sounds.) Heart Exam: Positive: Rate Normal, Regular Rhythm, Normal S1, Normal S2, Murmurs (systolic best heard in [place] apical region.); Negative: Rubs Telemetry: Positive: Atrial fibrillation Abdomen Exam: Positive: Normal bowel sounds, Soft; Negative: Tenderness, Hepatospenomegaly Extremity Exam: Positive: Normal pulses; Negative: Clubbing, Cyanosis, Edema Skin Exam: Positive: Nl turgor and temperature; Negative: Breakdown, Lesion Assessment /Plan Assessment 84 year old male with PMH of CHF with preserved EF, atrial fibrllation with pacemeker, hypertension, on xarelto had a second episode of right sided pleural effusion. He had a pelural tap done on 05/17/19 with removal of 1350 ml of fluid. Post procedure CXR showed a small pneumothorax. He was caled to get a follow up CXR the next day but did not have it till today and was told that his pneumothorax has increased and sent to the ED, Patient complained of some increased cough since the tap and possibly some increased SOB today. He denied any fever or chills. Patient also said that he has dropped about 20 lbs in the past year unintentionally and his appetite has been poor. CXR from today showed significant right pnumothorax and pleural fluid which was unchanged from the film from before the tapping. Patient is on Xarelto with elevated INR. General surgery was consulted and patient discussed with Pulmonary. Pateint was admitted for Moderate right pneumothorax and persistent right pleural effusion which is essentially unchanged. Right Hydropneumothorax Post procedure pneumothorax after pleural tap in 05/17/19 on non rebreather oxygen overnight CXR this am much worse. will need a chest tube , surgery aware. Dr Herrera from surgery on consult INR at 1.5 Right recurrent pleural effusion etiology not yet determined Prior pleural effusion from AUGUST 2018 was negative for malignancy. could be CHF or liver disease patient does have significant alcohol history. CHF no recent echo in system will continue home diuretics Dr Vee consulted Echo ordered. Chronic Afib with h/o sick sinus syndrome s/p pacemaker hold xarelto received vit k as INR is elevated. continue other home meds. Hypertension continue home meds CKD stage 4 stable Macrocytosis probably from chronic alcohol use. will check vit b12 and folate H/o PAD and carotid artery disease. No issues at present. Plan/VTE VTE Prophylaxis Ordered?: Yes VS, I&O, 24H, Fishbone Vital Signs/I&O Vital Signs Date Time Temp Pulse Resp B/P (MAP) Pulse Ox O2 Delivery O2 Flow Rate FiO2 05/21/19 04:00 97.9 78 16 124/67 (86) 98 Non-Rebreather 15.0 I&O- Last 24 Hours up to 6 AM 05/21/19 06:00 Intake Total 740 ml Output Total 525 ml Balance 215 ml Laboratory Data 24H LABS Laboratory Tests 2 05/20/19 09:59: Immature Granulocyte % (Auto) 1.0, Neutrophils (%) (Auto) 78.4H, Lymphocytes (%) (Auto) 8.3L, Monocytes (%) (Auto) 10.4H, Eosinophils (%) (Auto) 0.9, Basophils (%) (Auto) 1.0, Neutrophils # (Auto) 6.2, Lymphocytes # (Auto) 0.7L, Monocytes # (Auto) 0.8, Eosinophils # (Auto) 0.1, Basophils # (Auto) 0.1, Nucleated Red Blood Cells % (auto) 0.0, Anion Gap 10, Glomerular Filtration Rate 25.8L, Calcium Level 8.8, Total Bilirubin 0.4, Direct Bilirubin 0.2, Aspartate Amino Transf (AST/SGOT) 17, Alanine Aminotransferase (ALT/SGPT) 14, Alkaline Phosphatase 239H, Total Creatine Kinase 112, Creatine Kinase MB 5.0H, Creatine Kinase MB Relative Index 4.46H, Troponin I < 0.02, JS-Vwy-N-Type Natriuretic Peptide 7683H, Total Protein 7.0, Albumin 3.4, Albumin/Globulin Ratio 0.94L, Thyroid Stimulating Hormone (TSH) 0.925 05/20/19 10:02: Prothrombin Time 29.5H, Prothromb Time International Ratio 2.81, Activated Part ial Thromboplast Time 46.9H 05/21/19 04:40: Anion Gap 4L, Glomerular Filtration Rate 30.8L, Calcium Level 8.0L, Total Bilirubin 0.3, Aspartate Amino Transf (AST/SGOT) 15, Alanine Aminotransferase (ALT/SGPT) 13, Alkaline Phosphatase 203H, Total Protein 5.9L, Albumin 2.6#L, Albumin/Globulin Ratio 0.79L, Prothrombin Time 19.8H, Prothromb Time International Ratio 1.71, Activated Partial Thromboplast Time 42.5H, Lactate Dehydrogenase 192 CBC/BMP Laboratory Tests 05/20/19 09:59 05/21/19 04:40 Microbiology Microbiology 05/20/19 Blood Culture, Received Pending DON LALA MD May 21, 2019 05:55
[2019-05-21 12:00] VITALS: BP 98/51
[2019-05-21] MEDS: ACETAMINOPHEN TAB 650MG DOSE (2X325MG) PO PRN (12:55)
[2019-05-21 16:00] VITALS: BP 102/60
--- NOTE | 2019-05-21 19:53 | ECHO ---
DATE OF PROCEDURE: 05/21/2019 REFERRING PHYSICIAN: Dr. Darling and Dr. Vee. INDICATION: Congestive heart failure. Height 178 cm, weight 74 kg. DIMENSIONS: IVS: 1.1 LV: 4.5 LVPW: 1.0 LA: 5.5 Aorta: 2.9 RV: 4.5 IVC: 2.0 FINDINGS: The study is of acceptable technical quality. The patient is in atrial fibrillation with on demand ventricular pacing. Left ventricle is normal size and grossly has preserved contractility. There is septal wall motion abnormality, likely related to pacemaker-driven rhythm. Overall LVEF is likely normal or near normal, computer-generated left ventricular ejection fraction (LVEF) was 52%, which seems believable. Right ventricle is severely dilated and globally hypokinetic. Both atria are severely enlarged. There are echo densities in right-sided heart chambers corresponding to pacemaker wire. Aortic valve is sclerotic but mobility of leaflets is preserved. Mitral valve exhibits degenerative abnormalities with mitral annular calcifications. Tricuspid valve appears grossly normal. Same applies for pulmonic valve. No pericardial effusion is noted. Inferior vena cava is borderline dilated but has no appreciable collapse with inspiration indicative of likely very high central venous pressure. Aortic root is normal. Aortic arch and abdominal aorta were not well seen. Doppler interrogation of aortic valve reveals no stenosis and mild insufficiency. There is approximately moderate mitral insufficiency and moderate tricuspid insufficiency. Calculated pulmonary artery pressure is at minimum in 70s corresponding to moderately severe pulmonary hypertension. Mitral inflow pattern and tissue Doppler imaging of mitral annulus is nondiagnostic for diagnosing diastolic function due to underlying atrial fibrillation. CONCLUSIONS: 1. Study is of fair technical quality, the patient is in atrial fibrillation with ventricular pacing. 2. Normal left ventricular (LV) size with grossly preserved LV systolic function. 3. Aortic sclerosis with no stenosis and mild insufficiency. 4. Moderate mitral insufficiency. 5. Moderate tricuspid insufficiency. 6. Likely elevated central venous pressure and severe pulmonary hypertension. 7. Severe biatrial enlargement. COMMENT: Subacute bacterial endocarditis (SBE) prophylaxis is not recommended.
[2019-05-21 20:00] VITALS: BP 114/61
[2019-05-21] MEDS ORDERED: NORCO, ANEXSIA 5/325MG TABLET (HYDROcodone/ACETAMINOPHEN) PO ONE (20:30)
[2019-05-21] MEDS: POTASSIUM CHLORIDE 10 MEQ SR TABLET PO SCH (20:36)
[2019-05-21] MEDS: allopurinoL 300 MG TAB PO SCH (20:36)
[2019-05-21] MEDS: traZODone 50 MG TAB PO SCH (20:36)
[2019-05-21] MEDS: ACETAMINOPHEN 500 MG TAB PO SCH (20:37)
[2019-05-22] VITALS (11 sets, daily range): BP systolic 117–171; BP diastolic 71–104
[2019-05-22] MEDS: ACETAMINOPHEN TAB 650MG DOSE (2X325MG) PO PRN (08:09)
[2019-05-22] MEDS: THIAMINE 100 MG TAB PO SCH ×2 (09:00→21:00)
[2019-05-22] MEDS: bisoproloL fumarate 5 MG TAB PO SCH (09:09)
[2019-05-22] MEDS: OMEPRAZOLE 20 MG CAP PO SCH (09:09)
[2019-05-22] MEDS: ENOXAPARIN 80 MG/0.8 ML SYRINGE (J1650) SC SCH (09:10)
--- NOTE | 2019-05-22 09:12 | REP ---
PA and lateral chest: Comparison is 05/21/2019. The right hydropneumothorax is not significantly changed. The right chest tube is unchanged. The left lung is clear. Cardiac size is normal. Pacemaker is unchanged. Impression: No significant interval change. Electronically Signed by Neel Bell MD 05/22/2019 09:04 A
[2019-05-22] MEDS ORDERED: NORCO, ANEXSIA 5/325MG TABLET (HYDROcodone/ACETAMINOPHEN) PO PRN (09:15)
--- NOTE | 2019-05-22 09:29 | IPN ---
DATE: 05/22/2019 Mr. Medrano received a chest tube yesterday because his pneumothorax was not getting better, quite the opposite he put out immediately about 900 mL of fluids and continues to drain since. He feels reasonably well, although does not have any specific complaints. He does deny any discomfort outside of the chest tube placement site. Blood pressure 133/85. Heart rate in 70s and 80s, atrial fibrillation. He is afebrile. Saturation 95% on room air. Fluid balance negative 1300 yesterday, about 1700 today and he already put out almost 1500 mL of his chest tube. Weight is 72.6. He is alert, oriented and appropriate. His jugular venous pulse (JVP) is not high. Lungs are reasonably clear on the left. On the right, I do not appreciate that much consolidation by physical exam as yesterday. Heart exam: Irregularly irregular rhythm. The murmur is unchanged. I do not appreciate any obvious gallop. Abdomen is soft, nontender. There is no edema. Neurologically, he is intact. LABORATORIES: Basic metabolic panel: Sodium 142, potassium 4.1, BUN 39, creatinine 2.2, GFR 31, and glucose 109. Albumin is 2.6. CBC: Hemoglobin 11.4 and hematocrit 36. both of which are from yesterday. ASSESSMENT/PLAN: My plan is to obtain followup blood work and chest tube analysis simultaneously. Because the answers from the thoracentesis last week are borderline, I will wait for the results of his creatinine before deciding whether to give him diuretics or not. The advantage of obtaining the analysis today is the fact that he has not received any diuretics for a couple days which will help the accuracy, but it seems likely that this will be related to a transudative process. An echocardiogram yesterday revealed moderately severe pulmonary hypertension. My plan would be to restart diuretics, but will wait for the creatinine. As far as the atrial fibrillation is concerned, it is reasonably well-controlled. I will give him Lovenox once daily as an anticoagulation and after the chest tube will be removed I will transition him back to Xarelto or Eliquis.
[2019-05-22 09:36] LABS: ALBUMIN 2.7 GM/DL (3.2-5.2); BILIRUBIN,TOTAL 0.4 MG/DL (0.2-1.0); CALCIUM LEVEL 8.2 MG/DL (8.8-10.2); CREATININE FOR GFR 1.97 MG/DL (0.70-1.30); GLOMERULAR FILTRATION RATE 34.6 (>35); POTASSIUM SERUM 4.4 MEQ/L (3.5-5.1); TOTAL PROTEIN 6.1 GM/DL (6.4-8.2)
[2019-05-22 13:12] LABS: LDH, BODY FLUID 133 U/L (NOT ESTABLISHED); SOURCE, BODY FLUID ALBUMIN THORACENTESIS; SOURCE, BODY FLUID GLUCOSE THORACENTESIS; SOURCE, BODY FLUID LDH THORACENTESIS
--- NOTE | 2019-05-22 13:14 | IPNPDOC ---
Text Note Date of Service The patient was seen on 05/22/19. NOTE No acute events overnight. Tolerating diet. No nausea or emesis. Denies short ness of breath. He is still having pain on the right side, but it is improving. He is using the IS, but only a few times. There is still an air leak on the pleurovac. VSSAF NAD chest - CTAB, slight tenderness on the right side only labs - below A) 84y/o male with rt pneumothorax s/p thoracentesis P) amb in [place] OOB to chair GI and DVT prophylaxis reg diet continue with tube to suction likely plan to clamp CT tomorrow if continuing to improve. Faheem Posada DO VS,Amy, I+O VS, Amy, I+O Laboratory Tests 05/22/19 08:56 Vital Signs Date Time Temp Pulse Resp B/P (MAP) Pulse Ox O2 Delivery O2 Flow Rate FiO2 05/22/19 11:00 83 128/75 05/22/19 08:00 97.6 37 95 Room Air 05/21/19 08:00 15.0 I&O- Last 24 Hours up to 6 AM 05/22/19 06:00 Intake Total 780 ml Output Total 3865 ml Balance -3085 ml LENA POSADA DO May 22, 2019 13:14
[2019-05-22] MEDS: OXAZEPAM 10 MG CAP PO SCH ×2 (15:29→21:00)
[2019-05-22] MEDS: LORazepam 2 MG TAB PO PRN (15:30)
[2019-05-22] MEDS: MULTIVITAMINS/MINERALS THERAP 1 TAB PO SCH (15:55)
[2019-05-22] MEDS: FOLIC ACID 1 MG TAB PO SCH (15:55)
[2019-05-22] MEDS ORDERED: LORazepam 2 MG/ML VIAL (J2060) As Ordered ONE ×2 (20:19→20:25)
[2019-05-22] MEDS ORDERED: LORazepam 2 MG/ML VIAL (J2060) IV STA ×2 (20:26→20:27)
[2019-05-22] MEDS: ACETAMINOPHEN 500 MG TAB PO SCH (21:00)
[2019-05-22] MEDS: POTASSIUM CHLORIDE 10 MEQ SR TABLET PO SCH (21:00)
[2019-05-22] MEDS: traZODone 50 MG TAB PO SCH (21:00)
[2019-05-22] MEDS: allopurinoL 300 MG TAB PO SCH (21:00)
--- NOTE | 2019-05-22 21:10 | IPNPDOC ---
Subjective Date Seen The patient was seen on 05/22/19. Subjective Chief Complaint/HPI Today gradually patitn became confused from late morning. Did not remember that he has been in hospital for 3 days. Say ran out of his whiskey on Monday that is 4 days ago. Does not remember that he has a chest tube, when the nurses reoriented him he was very surprised not believing. Spoke with son . he says that he has been talking with his sister and she feels he has been drinking a lot more than what he lets on. They have noticed that his words are often slurred when they call him around 6 or 7 pm. In the morning he was alert oriented without any confusion. In the afternoon i could not have a conversation with him. I think he is going through alcohol withdrawal . Objective Physical Examination General Exam: Positive: Alert, Cooperative, No Acute Distress Eye Exam: Positive: PERRLA, Conjunctiva & lids normal, EOMI; Negative: Sclera icteric ENT Exam: Positive: Atraumatic, Mucous membr. moist/pink, Pharynx Normal Neck Exam: Positive: Supple; Negative: JVD, thyromegaly Chest Exam: Positive: Diminished (breath sounds on the right ), Other (normal air movement on the left with no added sounds.) Heart Exam: Positive: Rate Normal, Regular Rhythm, Normal S1, Normal S2, Mur murs (systolic best heard in [place] apical region.); Negative: Rubs Telemetry: Positive: Atrial fibrillation Abdomen Exam: Positive: Normal bowel sounds, Soft; Negative: Tenderness, Hepatospenomegaly Extremity Exam: Positive: Normal pulses; Negative: Clubbing, Cyanosis, Edema Skin Exam: Positive: Nl turgor and temperature; Negative: Breakdown, Lesion Assessment /Plan Assessment 84 year old male with PMH of CHF with preserved EF, atrial fibrllation with pacemeker, hypertension, on xarelto had a second episode of right sided pleural effusion. He had a pelural tap done on 05/17/19 with removal of 1350 ml of fluid. Post procedure CXR showed a small pneumothorax. He was caled to get a follow up CXR the next day but did not have it till today and was told that his pne umothorax has increased and sent to the ED, Patient complained of some increased cough since the tap and possibly some increased SOB today. He denied any fever or chills. Patient also said that he has dropped about 20 lbs in the past year unintentionally and his appetite has been poor. CXR from today showed significant right pnumothorax and pleural fluid which was unchanged from the film from before the tapping. Patient is on Xarelto with elevated INR. General surgery was consulted and patient discussed with Pulmonary. Pateint was admitted for Moderate right pneumothorax and persistent right pleural effusion which is essentially unchanged. Right Hydropneumothorax Post procedure pneumothorax after pleural tap in 05/17/19 s/p chest tube on 05/21/19. Its draining lot of fluid in 24 hour it drained 2500 ml. type is borderline not definite transudation not definite exudative. Alcohol use disorder now in alcohol withdrawal. will start on CIWA protocol serax tid. will get abdominal US Right recurrent pleural effusion etiology not yet determined Prior pleural effusion from AUGUST 2018 was negative for malignancy. could be CHF or liver disease CHF with preserved EF. will continue home diuretics Dr Vee consulted Echo shows severe pulmonary hypertesion, Normal EF normal diastolic function. Chronic Afib with h/o sick sinus syndrome s/p pacemaker hold xarelto received vit k as INR was elevated. continue other home meds. Hypertension continue home meds CKD stage 4 stable Macrocytosis probably from chronic alcohol use. will check vit b12 and folate H/o PAD and carotid artery disease. No issues at present. Plan/VTE VTE Prophylaxis Ordered?: Yes VS, I&O, 24H, Fishbone Vital Signs/I&O Vital Signs Date Time Temp Pulse Resp B/P (MAP) Pulse Ox O2 Delivery O2 Flow Rate FiO2 05/22/19 16:00 97.9 82 30 145/80 (101) 95 Room Air 05/21/19 08:00 15.0 I&O- Last 24 Hours up to 6 AM 05/22/19 06:00 Intake Total 780 ml Output Total 3865 ml Balance -3085 ml Laboratory Data 24H LABS Laboratory Tests 2 05/22/19 08:56: Anion Gap 5L, Glomerular Filtration Rate 34.6L, Calcium Level 8.2L, Total Bilirubin 0.4, Aspartate Amino Transf (AST/SGOT) 17, Alanine Aminotransferase (ALT/SGPT) 13, Alkaline Phosphatase 206H, Lactate Dehydrogenase 222, Total Protein 6.1L, Albumin 2.7L, Albumin/Globulin Ratio 0.79L 05/22/19 11:40: Body Fluid Glucose Source THORACENTESIS, Body Fluid Glucose 129, Body Fluid Albumin Source THORACENTESIS, Body Fluid Albumin 1.7, Body Fluid LDH Source THORACENTESIS, Body Fluid Lactate Dehydrogenase 133 CBC/BMP Laboratory Tests 05/22/19 08:56 Microbiology Microbiology 05/20/19 Blood Culture - Preliminary, Resulted No Growth after 48 hours. All Specime... DON LALA MD May 22, 2019 19:05
[2019-05-23] VITALS (21 sets, daily range): BP systolic 103–180; BP diastolic 67–130; O2SAT 91–97
[2019-05-23] MEDS ORDERED: LORazepam 2 MG/ML VIAL (J2060) As Ordered ONE ×5 (01:21→08:47)
[2019-05-23] MEDS: LORazepam 2 MG/ML VIAL (J2060) IV PRN ×4 (01:24→08:49)
[2019-05-23 04:57] LABS: CALCIUM LEVEL 8.2 MG/DL (8.8-10.2); CREATININE FOR GFR 1.86 MG/DL (0.70-1.30); GLOMERULAR FILTRATION RATE 36.9 (>35); POTASSIUM SERUM 4.5 MEQ/L (3.5-5.1)
--- NOTE | 2019-05-23 07:42 | IPN ---
DATE: 05/23/2019 Mr. Medrano apparently had a very rough night, he slept for part of it but then became very agitated and combative in spite of receiving several doses of benzodiazepines. Apparently the family was at the bedside and they discovered in his house that he probably has been drinking alcohol quite heavily, very likely much more than what he was stating. This morning he is restless and no direct communication is possible. He mumbles incomprehensible words and moves his all four extremities without specific purpose. Last set of vital signs blood pressure 164/94, heart rate has been in 80s and 90s, atrial fibrillation with on demand pacing. He is afebrile. Saturation 94% on 4 liters of oxygen. His weight was recorded 72.2 kg. His fluid balance yesterday was recorded as negative 1200. He put out about 1600 mL from his chest tube already 400 mL are recorded today. His jugular venous pulse (JVP) does not look high. Lungs seem very clear, I really do not appreciate any crackles on the left. On the right there are some sounds related to suction from the chest tube but no obvious crackles or wheezing. Heart exam irregularly irregular. The murmur at the apex is still easily appreciated. Abdomen is soft. There is no peripheral edema. Neurologic exam is as above. LABORATORY: Metabolic panel - sodium 141, potassium 4.5, BUN 30, creatinine 1.9, GFR 37 and glucose 121 and CBC - hemoglobin 11.4, hematocrit 36 and platelet count 193,000. The analysis of the thoracic fluid yesterday revealed glucose 129, albumin 1.7, LDH 133, corresponding LDH in the serum was 222 and albumin 2.7, so technically his fluid is actually exudate rather than transudate according to standard criteria. ASSESSMENT AND PLAN: Mr. Medrano is a 84-year-old man who has chronic diastolic congestive heart failure and chronic renal insufficiency. He presented with pneumothorax after thoracentesis presented that he had last Monday, chest tube was placed by Dr. Herrera after attempts of observation only showed progressive degree of pneumothorax since then he has been draining a fair amount of fluids. He has another complicating issue at this point is the altered mental status, at this point it seems likely that it is related to alcohol use and withdrawal symptoms. I am modestly encouraged by the fact that the renal function is at least somewhat improving but the output from the chest tube remains significant and I think that will have to restart some of the diuretics in order to help reduction of the fluid production, but because it is unclear whether he will be alert today and how much will be oral intake I am not going to give him any diuretics today as I suspect that his oral intake will be minimal. Unfortunately he is probably facing somewhat prolonged chest tube placement and hospital stay. As far as the management of atrial fibrillation is concerned the rate seems to be reasonably well-controlled, so far he has been receiving only single dose of Lovenox per day which seems appropriate for his renal function because I foresee that there will be problems with agitation in near future I am reluctant to give him heparin which would be very difficult to manage.
[2019-05-23] MEDS: ENOXAPARIN 80 MG/0.8 ML SYRINGE (J1650) SC SCH (08:49)
--- NOTE | 2019-05-23 09:34 | REP ---
Portable chest, 09:19 a.m., single AP view with the patient semi upright: Comparison is the PA and lateral chest of 05/22/2009. The known right hydropneumothorax has changed in configuration and now has a more diffuse appearance suggestive of a large infiltrate in the mid and lower right lung. This change in appearance may be secondary to position, the current study being performed with the the patient semi upright. The right pneumothorax is unchanged in size. The right chest tube is unchanged. Left lung is clear. Cardiac size is normal. The pacemaker is unchanged. Electronically Signed by Neel Bell MD 05/23/2019 09:26 A
[2019-05-23] MEDS ORDERED: MORPHINE 2 MG/ML 1ML VIAL (J2270) IV PRN (10:45)
--- NOTE | 2019-05-23 11:20 | IPNPDOC ---
Subjective Date Seen The patient was seen on 05/23/19. Subjective Chief Complaint/HPI Has been agitated, confused all night , trying to get out of bed , trying to pull medical tubes, needing a sitter, No fever or chills, Has some pain on the site of the chest tube winces when he is moved. Remains delirious this am with mittens on unable to cooperate with anything. Objective Physical Examination General Exam: Positive: No Acute Distress, Other (confused, acute delirium) Eye Exam: Positive: PERRLA, Conjunctiva & lids normal, EOMI; Negative: Sclera icteric ENT Exam: Positive: Atraumatic, Pharynx Normal Neck Exam: Positive: Supple; Negative: JVD, thyromegaly Chest Exam: Positive: Other (crackles on the right , better air movement. chest tube in place. ) Heart Exam: Positive: Rate Normal, Regular Rhythm, Normal S1, Normal S2, Murmurs (systolic best heard in [place] apical region.); Negative: Rubs Telemetry: Positive: Atrial fibrillation Abdomen Exam: Positive: Normal bowel sounds, Soft; Negative: Tenderness, Hepatospenomegaly Extremity Exam: Positive: Normal pulses; Negative: Clubbing, Cyanosis, Edema Skin Exam: Positive: Nl turgor and temperature; Negative: Breakdown, Lesion Psych Exam: Positive: Other (completely disoriented, hallucinating, mumbling) Assessment /Plan Assessment 84 year old male with PMH of CHF with preserved EF, atrial fibrllation with pacemeker, hypertension, on xarelto had a second episode of right sided pleural effusion. He had a pelural tap done on 05/17/19 with removal of 1350 ml of fluid. Post procedure CXR showed a small pneumothorax. He was caled to get a follow up CXR the next day but did not have it till today and was told that his pneumothorax has increased and sent to the ED, Patient complained of some increased cough since the tap and possibly some increased SOB today. He denied any fever or chills. Patient also said that he has dropped about 20 lbs in the past year unintentionally and his appetite has been poor. CXR from today showed significant right pnumothorax and pleural fluid which was unchanged from the film from before the tapping. Patient is on Xarelto with elevated INR. General surgery was consulted and patient discussed with Pulmonary. Pateint was admitted for Moderate right pneumothorax and persistent right pleural effusion which is essentially unchanged. Acute encephalopathy alcohol withdrawal on [facility] protocol will need iv meds. serax tid. sitter Right Hydropneumothorax Post procedure pneumothorax after pleural tap in 05/17/19 s/p chest tube on 05/21/19. Its draining lot of fluid in 24 hour it drained 2500 ml. type is borderline not definite transudation not definite exudative. Alcohol use disorder now in alcohol withdrawal. on [facility] protocol serax tid. will get abdominal US Right recurrent pleural effusion etiology not yet determined Prior pleural effusion from AUGUST 2018 was negative for malignancy. could be CHF or liver disease CHF with preserved EF. will continue home diuretics Dr Vee consulted Echo shows severe pulmonary hypertesion, Normal EF normal diastolic function. Chronic Afib with h/o sick sinus syndrome s/p pacemaker hold xarelto received vit k as INR was elevated. continue other home meds. Hypertension continue home meds CKD stage 4 stable Macrocytosis probably from chronic alcohol use. will check vit b12 and folate H/o PAD and carotid artery disease. No issues at present. Plan/VTE VTE Prophylaxis Ordered?: Yes VS, I&O, 24H, Fishbone Vital Signs/I&O Vital Signs Date Time Temp Pulse Resp B/P (MAP) Pulse Ox O2 Delivery O2 Flow Rate FiO2 05/23/19 05:30 92 164/94 05/23/19 05:00 96 Venturi Mask 40 05/23/19 04:00 97.6 20 05/23/19 03:28 15.0 I&O- Last 24 Hours up to 6 AM 05/23/19 06:00 Intake Total 1090 ml Output Total 995 ml Balance 95 ml Laboratory Data 24H LABS Laboratory Tests 2 05/22/19 08:56: Anion Gap 5L, Glomerular Filtration Rate 34.6L, Calcium Level 8.2L, Total Bilirubin 0.4, Aspartate Amino Transf (AST/SGOT) 17, Alanine Aminotransferase (ALT/SGPT) 13, Alkaline Phosphatase 206H, Lactate Dehydrogenase 222, Total Protein 6.1L, Albumin 2.7L, Albumin/Globulin Ratio 0.79L 05/22/19 11:40: Body Fluid Glucose Source THORACENTESIS, Body Fluid Glucose 129, Body Fluid Albumin Source THORACENTESIS, Body Fluid Albumin 1.7, Body Fluid LDH Source THORACENTESIS, Body Fluid Lactate Dehydrogenase 133 05/23/19 04:16: Anion Gap 5L, Glomerular Filtration Rate 36.9, Calcium Level 8.2L CBC/BMP Laboratory Tests 05/22/19 08:56 05/23/19 04:16 Microbiology Microbiology 05/20/19 Blood Culture - Preliminary, Resulted No Growth after 48 hours. All Specime... DON LALA MD May 23, 2019 06:16
[2019-05-23] MEDS ORDERED: ACETAMINOPHEN 650 MG SUPP PR PRN (12:45)
[2019-05-23] MEDS: THIAMINE 100 MG TAB PO SCH ×2 (13:44→22:15)
[2019-05-23] MEDS: FOLIC ACID 1 MG TAB PO SCH (13:45)
[2019-05-23] MEDS: MULTIVITAMINS/MINERALS THERAP 1 TAB PO SCH (13:45)
[2019-05-23] MEDS: OXAZEPAM 10 MG CAP PO SCH ×3 (13:45→22:15)
[2019-05-23] MEDS: OMEPRAZOLE 20 MG CAP PO SCH (13:45)
[2019-05-23] MEDS: bisoproloL fumarate 5 MG TAB PO SCH (14:47)
[2019-05-23] MEDS ORDERED: D5/0.9%NACL 1000ML IV ONE (17:15)
[2019-05-23] MEDS ORDERED: MULTIVITAMIN -ADULT INJECTION 10 ML, THIAMINE INJection 100 MG, FOLIC ACID 1 MG in NS 1... IV ONE (20:15)
[2019-05-23] MEDS: traZODone 50 MG TAB PO SCH (22:15)
[2019-05-23] MEDS: ACETAMINOPHEN 500 MG TAB PO SCH (22:15)
[2019-05-23] MEDS: POTASSIUM CHLORIDE 10 MEQ SR TABLET PO SCH (22:15)
[2019-05-23] MEDS: allopurinoL 300 MG TAB PO SCH (22:16)
[2019-05-24] VITALS: BP 150/96
[2019-05-24] MEDS: LORazepam 2 MG/ML VIAL (J2060) IV PRN ×3 (02:15→18:36)
[2019-05-24 04:00] VITALS: BP 140/90
[2019-05-24 05:30] LABS: BASO # 0.1 10^3/uL (0.0-0.2); BASO % 0.5 % (0.0-1.0); EOS # 0.1 10^3/uL (0.0-0.5); EOS % 0.6 % (0.0-3.0); HEMATOCRIT 47.6 % (42.0-52.0); HEMOGLOBIN 14.8 g/dl (13.5-17.5); LYMPH # 0.6 10^3/uL (1.5-5.0); LYMPH % 5.8 % (24.0-44.0); MEAN CORPUSCULAR HEMOGLOBIN 33.7 pg (27.0-33.0); MEAN CORPUSCULAR HGB CONC 31.1 g/dl (32.0-36.5); MEAN CORPUSCULAR VOLUME 108.4 fl (80.0-96.0); MONO % 9.1 % (0.0-5.0); NEUTROPHILS # 8.8 10^3/uL (1.5-8.5); NEUTROPHILS % 83.2 % (36.0-66.0); PLATELET COUNT, AUTOMATED 213 10^3/uL (150-450); RED BLOOD COUNT 4.39 10^6/uL (4.30-6.10); WHITE BLOOD COUNT 10.6 10^3/uL (4.0-10.0)
[2019-05-24 08:00] VITALS: BP 186/86
[2019-05-24 08:39] LABS: CALCIUM LEVEL 8.7 MG/DL (8.8-10.2); CREATININE FOR GFR 2.02 MG/DL (0.70-1.30); GLOMERULAR FILTRATION RATE 33.6 (>35); POTASSIUM SERUM 4.8 MEQ/L (3.5-5.1)
--- NOTE | 2019-05-24 08:45 | IPN ---
DATE: 05/24/2019 Mr. Medrano was moved from intensive care unit (ICU to progressive care unit (PCU) yesterday. He apparently was agitated throughout the day and received multiple doses of benzodiazepines. This morning, he is alert. He is partially oriented. He keeps repeating he just wants to go home. He does not answer most of the questions appropriately. He had fairly minimal oral intake yesterday. He pulled out some of his IV lines. The chest tube is still in place, but it is not attached to suction. Blood pressure 140/90. Heart rate has been from 70s to low 100s, atrial fibrillation, with ventricular pacing. He is afebrile. Saturation is 94% and up to 100% depending on the oxygen FiO2. Fluid balance yesterday was recorded as output 900, out of it 750 was fluid, but again he does not have a Galvan catheter and has not been urinating into urinal and consequently the urine output record is not accurate. His jugular venous pulse (JVP) does not look up. Lungs are clear on the left. On the right unfortunately the breath sounds are again diminished so I have to assume that he accumulated some fluid. Abdomen is soft, nontender. There is no edema. Laboratory-tao, CBC with hemoglobin 14.8, hematocrit 47 and platelet count 213,000. Basic metabolic panel is still pending. ASSESSMENT/PLAN: Mr. Medrano is an 84-year-old man who was admitted with pneumothorax after thoracentesis performed last Monday. After attempts for conservative management failed, he was given a chest tube. Unfortunately, the hospitalization was further complicated by altered mental status which very likely is related to alcohol withdrawal that is still ongoing. I do believe that he is getting better and hopefully within day or to the withdrawal process will be completed. As far as the management of pleural effusion is concerned, I think that it is probably principally due to congestive heart failure, even though the fluid analysis is actually pointing more towards exudative effusion (even though borderline). I am not going to administer any diuretics in the setting of his minimal oral intake and ongoing confusion. I will be back on Monday, but Dr. Omer will cover our service on the weekend. I am not going to ask him to see the patient, but if there are any concerns or problems please do not hesitate to contact him. One of the difficult issues is anticoagulation. His oral intake is not reliable and consequently he has been receiving Lovenox once a day for prevention of stroke. I do not believe that we can safely give him heparin on account of intermittent agitation and pulling out his lines. RAFFAELE
[2019-05-24] MEDS: OMEPRAZOLE 20 MG CAP PO SCH (09:56)
[2019-05-24] MEDS: bisoproloL fumarate 5 MG TAB PO SCH (09:56)
[2019-05-24] MEDS: THIAMINE 100 MG TAB PO SCH ×2 (09:56→20:55)
[2019-05-24] MEDS: OXAZEPAM 10 MG CAP PO SCH ×3 (09:56→20:55)
[2019-05-24] MEDS: MULTIVITAMINS/MINERALS THERAP 1 TAB PO SCH (09:57)
[2019-05-24] MEDS: FOLIC ACID 1 MG TAB PO SCH (09:57)
[2019-05-24] MEDS: ENOXAPARIN 80 MG/0.8 ML SYRINGE (J1650) SC SCH (09:58)
[2019-05-24] MEDS ORDERED: SLF 3 ML SYR IV PRN (10:45)
--- NOTE | 2019-05-24 11:38 | REP ---
Portable chest, 11:41 a.m., single AP view with the patient semi upright: Comparison is 05/23/2019. The the large infiltrate like density inferiorly in the right lung is unchanged. The right pneumothorax is unchanged in size. The The right chest tube and pacemaker are unchanged. Impression: No interval change. Electronically Signed by Neel Bell MD 05/24/2019 11:30 A
--- NOTE | 2019-05-24 11:49 | IPNPDOC ---
Subjective Date Seen The patient was seen on 05/24/19. Subjective Chief Complaint/HPI seems a little beter this am. Responding to some questions. However still cannot have a full conversation with him. No fever or chills. Still needing a sitter. Objective Physical Examination General Exam: Positive: No Acute Distress, Other (confused, acute delirium) Eye Exam: Positive: PERRLA, Conjunctiva & lids normal, EOMI; Negative: Sclera icteric ENT Exam: Positive: Atraumatic, Pharynx Normal Neck Exam: Positive: Supple; Negative: JVD, thyromegaly Chest Exam: Positive: Other (crackles on the right , better air movement. chest tube in place. ) Heart Exam: Positive: Rate Normal, Regular Rhythm, Normal S1, Normal S2, Murmurs (systolic best heard in [place] apical region.); Negative: Rubs Telemetry: Positive: Atrial fibrillation Abdomen Exam: Positive: Normal bowel sounds, Soft; Negative: Tenderness, Hepatospenomegaly Extremity Exam: Positive: Normal pulses; Negative: Clubbing, Cyanosis, Edema Skin Exam: Positive: Nl turgor and temperature; Negative: Breakdown, Lesion Psych Exam: Positive: Other (completely disoriented, hallucinating, mumbling) Assessment /Plan Assessment 84 year old male with PMH of CHF with preserved EF, atrial fibrillation with pacemeker, hypertension, on xarelto had a second episode of right sided pleural effusion. He had a pelural tap done on 05/17/19 with removal of 1350 ml of fluid. Post procedure CXR showed a small pneumothorax. He was caled to get a follow up CXR the next day but did not have it till today and was told that his pneumothorax has increased and sent to the ED, Patient complained of some increased cough since the tap and possibly some increased SOB today. He denied any fever or chills. Patient also said that he has dropped about 20 lbs in the past year unintentionally and his appetite has been poor. CXR from today showed significant right pnumothorax and pleural fluid which was unchanged from the film from before the tapping. Patient is on Xarelto with elevated INR. General surgery was consulted and patient discussed with Pulmonary. Pateint was admitted for Moderate right pneumothorax and persistent right pleural effusion which is essentially unchanged. Acute encephalopathy alcohol withdrawal on [facility] protocol will need iv meds. serax tid. sitter Right Hydropneumothorax Post procedure pneumothorax after pleural tap in 05/17/19 s/p chest tube on 05/21/19. Its draining lot of fluid in 24 hour it drained 2500 ml. type is borderline not definite transudation not definite exudative. Alcohol use disorder now in alcohol withdrawal. on [facility] protocol serax tid. will get abdominal US Right recurrent pleural effusion etiology not yet determined Prior pleural effusion from AUGUST 2018 was negative for malignancy. could be CHF or liver disease CHF with preserved EF. will continue home diuretics Dr Vee consulted Echo shows severe pulmonary hypertension, Normal EF normal diastolic function. Chronic Afib with h/o sick sinus syndrome s/p pacemaker hold xarelto received vit k as INR was elevated. continue other home meds. will continue with lovenox therapeutic dose Hypertension continue home meds CKD stage 4 stable Macrocytosis probably from chronic alcohol use. will check vit b12 and folate H/o PAD and carotid artery disease. No issues at present. Plan/VTE VTE Prophylaxis Ordered?: Yes VS, I&O, 24H, Fishbone Vital Signs/I&O Vital Signs Date Time Temp Pulse Resp B/P (MAP) Pulse Ox O2 Delivery O2 Flow Rate FiO2 05/24/19 09:58 105 186/86 05/24/19 08:00 96.8 21 95 Venturi Mask 15.0 05/24/19 04:00 40 I&O- Last 24 Hours up to 6 AM 05/24/19 05:59 Intake Total 850 ml Output Total 902 ml Balance -52 ml Laboratory Data 24H LABS Laboratory Tests 2 05/23/19 17:22: Bedside Glucose (Misc Panel) 105 05/24/19 05:11: Immature Granulocyte % (Auto) 0.8, Neutrophils (%) (Auto) 83.2H, Lymphocytes (%) (Auto) 5.8L, Monocytes (%) (Auto) 9.1H, Eosinophils (%) (Auto) 0.6, Basophils (%) (Auto) 0.5, Neutrophils # (Auto) 8.8H, Lymphocytes # (Auto) 0.6L, Monocytes # (Auto) 1.0H, Eosinophils # (Auto) 0.1, Basophils # (Auto) 0.1, Nucleated Red Blood Cells % (auto) 0.0 05/24/19 07:44: Anion Gap 5L, Glomerular Filtration Rate 33.6L, Calcium Level 8.7L CBC/BMP Laboratory Tests 05/24/19 05:11 05/24/19 07:44 Microbiology Microbiology 05/20/19 Blood Culture - Preliminary, Resulted No Growth after 72 hours. All specime... DON LALA MD May 24, 2019 11:49
[2019-05-24 12:00] VITALS: BP 130/79
[2019-05-24] MEDS: ACETAMINOPHEN TAB 650MG DOSE (2X325MG) PO PRN (13:25)
[2019-05-24] MEDS: SLF 3 ML SYR IV SCH ×2 (13:56→22:59)
[2019-05-24] MEDS ORDERED: LORazepam 2 MG/ML VIAL (J2060) As Ordered ONE ×2 (15:04→18:32)
[2019-05-24 16:00] VITALS: BP 140/65
[2019-05-24] MEDS ORDERED: HALOPERIDOL 5 MG/ML VIAL (J1630) IV ONE (19:00)
[2019-05-24] MEDS ORDERED: HALOPERIDOL 5 MG/ML VIAL (J1630) As Ordered ONE (19:00)
[2019-05-24 20:00] VITALS: BP 112/56
[2019-05-24] MEDS: allopurinoL 300 MG TAB PO SCH (20:55)
[2019-05-24] MEDS: ACETAMINOPHEN 500 MG TAB PO SCH (20:55)
[2019-05-24] MEDS: traZODone 50 MG TAB PO SCH (20:55)
[2019-05-24] MEDS: POTASSIUM CHLORIDE 10 MEQ SR TABLET PO SCH (20:55)
[2019-05-25] VITALS: BP 122/76
[2019-05-25] MEDS: LORazepam 2 MG TAB PO PRN (03:03)
[2019-05-25 04:00] VITALS: BP 139/89
[2019-05-25] MEDS: SLF 3 ML SYR IV SCH ×3 (05:50→22:00)
[2019-05-25 06:25] LABS: CALCIUM LEVEL 8.5 MG/DL (8.8-10.2); CREATININE FOR GFR 2.04 MG/DL (0.70-1.30); GLOMERULAR FILTRATION RATE 33.2 (>35); POTASSIUM SERUM 4.2 MEQ/L (3.5-5.1)
[2019-05-25 08:00] VITALS: BP 149/93
[2019-05-25] MEDS: OXAZEPAM 10 MG CAP PO SCH ×4 (08:22→20:42)
[2019-05-25] MEDS: OMEPRAZOLE 20 MG CAP PO SCH ×2 (08:22→09:00)
[2019-05-25] MEDS: ENOXAPARIN 80 MG/0.8 ML SYRINGE (J1650) SC SCH ×2 (08:22→09:00)
[2019-05-25] MEDS: FOLIC ACID 1 MG TAB PO SCH ×2 (08:22→09:00)
[2019-05-25] MEDS: MULTIVITAMINS/MINERALS THERAP 1 TAB PO SCH ×2 (08:22→09:00)
[2019-05-25] MEDS: bisoproloL fumarate 5 MG TAB PO SCH (08:23)
[2019-05-25] MEDS: LORazepam 2 MG/ML VIAL (J2060) IV PRN ×5 (08:31→23:55)
--- NOTE | 2019-05-25 08:41 | REP ---
AP PORTABLE CHEST: 05/25/2019. COMPARISON: 05/24/2019, 05/23/2019, 05/22/2019, 05/21/2019. CLINICAL HISTORY: Chest tube for right-sided pneumothorax. Dual-lead pacer over the left upper chest unchanged. Small caliber right chest tube is again seen extending to the periphery of the right upper lung zone. Small apical right pneumothorax is unchanged. Cardiac silhouette, aortic contour and airway normal. Opacity in the right base with right pleural effusion are unchanged. Left lung clear without effusion or infiltrate. Right mid and upper lung zone clear. IMPRESSION: 1. Stable chest with small right apical pneumothorax, small caliber right chest tube unchanged and right mid and lower lung zone airspace opacity with pleural effusion. No increase in the size of the infiltrate. The effusion may be slightly larger. Electronically Signed by Benedicto High MD 05/25/2019 07:50 P
--- NOTE | 2019-05-25 09:09 | IPN ---
DATE: 05/23/2019 The patient over the last couple days has been doing relatively well with his chest from a chest tube standpoint. He unfortunately had a great deal of chest tube drainage yesterday, 1600, and he has still some significant fluid coming out of the chest tube. He is getting confused and agitated and is going through withdrawals. Thus, at this point, it is more concerning, concerning his withdrawal, possible delirium tremens (DTs) that he is going through at this time. He has been saturating fine and from a respiratory standpoint really does not seem to be the major issue currently. His chest x-ray reveals what appears to be significant more aeration of the lung compared to what it was beforehand. Still has a pneumothorax on that side but much better. The right lower lobe is pretty dense in that area. There does not seem to be as much fluid as it was previously, but once again, compared to yesterday prior to tube insertion this is much improved. He does have significant improved breath sounds on the right-hand side, still some crackles at bases, and he also has evidence of an air leak appreciated on his exam. It is an air leak that occurs with coughing. IMPRESSION/PLAN: The patient has a pneumothorax that is improved prior to chest tube insertion. His fluid issues/pleural effusion is draining adequately at this time and will continue with his priority issues at this time, which are resolving his DTs prior to entertaining our next step/intervention for his pneumothorax/chronic pleural effusions.
--- NOTE | 2019-05-25 09:44 | IPN ---
DATE: 05/24/2019 The patient seems less agitated now. His sedation is much better controlled than it was yesterday and his agitation is much better controlled. Unfortunately, he is relatively sedated but he does wake up to stimulation. He does have improved overall vitals. Overnight he has been afebrile and his O2 saturations have been stable. His white count did bump up to 10.6. I am not sure if that is secondary to some dehydration given that his creatinine also bumped as well. It also could be secondary from the infiltrate in his right lower lobe on his x-rays. In any case from a surgical standpoint, chest tube standpoint, he continues to drain some fluid. His fluid output yesterday was 732 and his respiratory status is not labored. He is clear anteriorly with some minimal amount of crepitus around the site. There is still small air leak present. But when I look at his x-ray, this is a small apical pneumothorax I see, and although they implied that there is not a significant improvement from yesterday, it appears there is some mild improvement of the upper airway or upper lobe area and this seems better aerated. Right lower lobe area seems pretty dense. But otherwise at this point, he seems to be stable and his sedation issues are present but he is at least a little less agitated better under control. IMPRESSION AND PLAN: From a priority standpoint, he has continued to make his improvement through his DT issues and now he is in the sedation kind of portion of his medication, and unfortunately at this point, this seems to still be the most important issue at this time. I feel that operative intervention is not a priority, i.e., either talc pleurodesis or even further intervention or even a bigger chest tube, etc. We are stable and possibly slowly improving. I do feel that is air leak overall seems to be a little bit less than it was and only comes out when he coughs. Where as previously, just with a deep breath that he was having a small air leak. We will see how things go over the next 24 hours and determine our next course of action.
--- NOTE | 2019-05-25 09:51 | IPN ---
DATE: 05/25/2019 Overall the patient is less sedated than he was yesterday, but once again now he is a little bit on the agitated side. He is a little more compliant with recommendations, deep breaths, coughing, etc., and at this point, I am not seeing any air leak when he coughs. I did take a look at his x-ray and his x-ray does have a little bit more fluid in the base but I feel that the pneumothorax seems to be smaller than it was previously. His lungs are clear anteriorly and I am not appreciating as much crepitus in this area. IMPRESSION/PLAN: The patient has slightly improved pneumothorax issue, and at this point, my thought is that I am not seeing an air leak today and it may be that the tube has a little kink in it, but it looks like it is still patent, but I do feel that the pneumothorax seems to be less than it was yesterday. Thus, in this case, I feel that it is reasonable with no evidence of air leak and possible decreased air leak I feel that it is reasonable to have him continue with his current chest tube in place. Will see if it is still not problematic overnight. If it is air leaking overnight, we may plan on removing this tomorrow. Will see how tomorrow's chest x-ray looks. Otherwise, if he has ongoing persistent pleural effusion he may need intervention for this. Dr. Jeffers is back on Monday and we can ask for a consultation from him with recommendations for possible talc pleurodesis as additional intervention concerning this right lower lobe area as well.
--- NOTE | 2019-05-25 10:45 | IPNPDOC ---
Subjective Date Seen The patient was seen on 05/25/19. Subjective Chief Complaint/HPI Continues to have delirium, somnolent with ativan but easily arousable. Overnight as per nurses has been agitated and aggressive, kicking, trying to hit needing haldol and ativan. When woken up he talks about unrelated thing and is mumbles things. Did not have much oral intake yesterday. Patient refused all oral meds this am. Objective Physical Examination General Exam: Positive: No Acute Distress, Other (confused, acute delirium) Eye Exam: Positive: PERRLA, Conjunctiva & lids normal, EOMI; Negative: Sclera icteric ENT Exam: Positive: Atraumatic, Pharynx Normal Neck Exam: Positive: Supple; Negative: JVD, thyromegaly Chest Exam: Positive: Other (crackles on the right , better air movement. chest tube in place. ) Heart Exam: Positive: Rate Normal, Regular Rhythm, Normal S1, Normal S2, Murmurs (systolic best heard in [place] apical region.); Negative: Rubs Telemetry: Positive: Atrial fibrillation Abdomen Exam: Positive: Normal bowel sounds, Soft; Negative: Tenderness, Hepatospenomegaly Extremity Exam: Positive: Normal pulses; Negative: Clubbing, Cyanosis, Edema Skin Exam: Positive: Nl turgor and temperature; Negative: Breakdown, Lesion Psych Exam: Positive: Other (completely disoriented, hallucinating, mumbling) Assessment /Plan Assessment 84 year old male with PMH of CHF with preserved EF, atrial fibrillation with p acemeker, hypertension, on xarelto had a second episode of right sided pleural effusion. He had a pelural tap done on 05/17/19 with removal of 1350 ml of fluid. Post procedure CXR showed a small pneumothorax. He was caled to get a follow up CXR the next day but did not have it till today and was told that his pneumothorax has increased and sent to the ED, Patient complained of some increased cough since the tap and possibly some increased SOB today. He denied any fever or chills. Patient also said that he has dropped about 20 lbs in the past year unintentionally and his appetite has been poor. CXR from today showed significant right pnumothorax and pleural fluid which was unchanged from the film from before the tapping. Patient is on Xarelto with elevated INR. General surgery was consulted and patient discussed with Pulmonary. Pateint was admitted for Moderate right pneumothorax and persistent right pleural effusion which is essentially unchanged. Acute encephalopathy alcohol withdrawal on [facility] protocol will need iv meds. serax tid. sitter will give a banana bag Right Hydropneumothorax Post procedure pneumothorax after pleural tap in 05/17/19 s/p chest tube on 05/21/19. Its draining lot of fluid in 24 hour it drained 2500 ml. persistent right pleural effusion type is borderline not definite transudation not definite exudative. Consult Dr Jeffers on Monday for possible pleuradesis and evaluation of the right lower lobe which is not improving. May need a Bronchoscopy also. Right lug opacity in CXR looks a little worse No fever or chills, WBC only mildly elevated. will need further evaluation May need a bronch. Alcohol dependence now in alcohol withdrawal. on [facility] protocol serax tid. will get abdominal US Right recurrent pleural effusion etiology not yet determined Prior pleural effusion from AUGUST 2018 was negative for malignancy. could be CHF or liver disease CHF with preserved EF. will continue home diuretics Dr Vee consulted Echo shows severe pulmonary hypertension, Normal EF normal diastolic function. Chronic Afib with h/o sick sinus syndrome s/p pacemaker hold xarelto received vit k as INR was elevated. continue other home meds. will continue with lovenox therapeutic dose Hypertension continue home meds CKD stage 4 stable Macrocytosis probably from chronic alcohol use. will check vit b12 and folate H/o PAD and carotid artery disease. No issues at present. Plan/VTE VTE Prophylaxis Ordered?: Yes VS, I&O, 24H, Fishbone Vital Signs/I&O Vital Signs Date Time Temp Pulse Resp B/P (MAP) Pulse Ox O2 Delivery O2 Flow Rate FiO2 05/25/19 08:23 90 149/93 05/25/19 08:00 96.7 18 100 Venturi Mask 15.0 05/24/19 04:00 40 I&O- Last 24 Hours up to 6 AM 05/25/19 06:00 Intake Total 300 ml Output Total 0 ml Balance 300 ml Laboratory Data 24H LABS Laboratory Tests 2 05/25/19 05:43: Anion Gap 8, Glomerular Filtration Rate 33.2L, Calcium Level 8.5L CBC/BMP Laboratory Tests 05/25/19 05:43 Microbiology Microbiology 1/20/20 Blood Culture - Final, Complete NO GROWTH AFTER 5 DAYS DON LALA MD May 25, 2019 10:45
[2019-05-25 12:00] VITALS: BP 156/89
[2019-05-25] MEDS: ACETAMINOPHEN TAB 650MG DOSE (2X325MG) PO PRN (12:02)
[2019-05-25] MEDS ORDERED: MULTIVITAMIN -ADULT INJECTION 10 ML, THIAMINE INJection 100 MG, FOLIC ACID 1 MG in NS 1... IV ONE (14:00)
[2019-05-25] MEDS ORDERED: LORazepam 2 MG/ML VIAL (J2060) As Ordered ONE (14:03)
[2019-05-25 16:00] VITALS: BP 154/99
[2019-05-25 20:00] VITALS: BP 132/76
[2019-05-25] MEDS: POTASSIUM CHLORIDE 10 MEQ SR TABLET PO SCH (20:43)
[2019-05-25] MEDS: traZODone 50 MG TAB PO SCH (20:43)
[2019-05-25] MEDS: allopurinoL 300 MG TAB PO SCH (20:44)
[2019-05-25] MEDS: ACETAMINOPHEN 500 MG TAB PO SCH (20:44)
[2019-05-26] VITALS (8 sets, daily range): BP systolic 126–169; BP diastolic 67–99
[2019-05-26] MEDS: HALOPERIDOL 5 MG/ML VIAL (J1630) IV PRN (02:38)
[2019-05-26] MEDS: SLF 3 ML SYR IV SCH ×3 (04:06→19:39)
[2019-05-26] MEDS: LORazepam 2 MG/ML VIAL (J2060) IV PRN ×4 (05:10→19:38)
[2019-05-26 05:51] LABS: CALCIUM LEVEL 8.7 MG/DL (8.8-10.2); CREATININE FOR GFR 1.85 MG/DL (0.70-1.30); GLOMERULAR FILTRATION RATE 37.2 (>35); POTASSIUM SERUM 3.9 MEQ/L (3.5-5.1)
[2019-05-26] MEDS: FOLIC ACID 1 MG TAB PO SCH (08:34)
[2019-05-26] MEDS: MULTIVITAMINS/MINERALS THERAP 1 TAB PO SCH (08:34)
[2019-05-26] MEDS: OXAZEPAM 10 MG CAP PO SCH ×4 (08:34→20:12)
[2019-05-26] MEDS: OMEPRAZOLE 20 MG CAP PO SCH (08:35)
[2019-05-26] MEDS: ENOXAPARIN 80 MG/0.8 ML SYRINGE (J1650) SC SCH (08:35)
[2019-05-26] MEDS: bisoproloL fumarate 5 MG TAB PO SCH (08:35)
[2019-05-26] MEDS ORDERED: LORazepam 2 MG/ML VIAL (J2060) As Ordered ONE ×2 (10:26→15:01)
--- NOTE | 2019-05-26 14:50 | REP ---
AP PORTABLE CHEST: 05/26/2019. Clinical history: Right pneumothorax, pleural effusion. Comparison: 05/25/2019, 05/24/2019, 05/23/2019. Findings: A dual lead pacer unchanged. Cardiomegaly with left atrial and ventricular enlargement noted. Small caliber right chest tube is again seen over the right mid upper lung zone peripherally. Adjacent to the tip of the chest catheter is a linear edge with lucency lateral suggesting small pneumothorax. Appears to be slightly more prominent than the apical pneumothorax on the previous study. Consolidation in the right base and a right pleural effusion are again seen and unchanged. No other findings or interval changes. Electronically Signed by Benedicto High MD 05/26/2019 08:33 P
--- NOTE | 2019-05-26 16:06 | IPN ---
DATE: 05/26/2019 Patient overall is still very confused. He has been afebrile and his chest tube still put out a fair bit of fluid yesterday, 370 mL, and over this morning as already put out about 80 mL. He is still slightly agitated and he is not oriented to person, place or time. His chest tube does not have any air leak that I can appreciate and there is some fluid on his chest x-ray with a small apical pneumothorax. IMPRESSION AND PLAN: Patient has evidence of a previous pneumothorax. I do feel that it is probably stopped at this point and there is just some residual air that needs to resolve over time. From my standpoint, the tube is starting to get kinked off a little bit more and I anticipate should be less effective in any case. I will ask Dr. Jeffers to evaluate the patient for two issues, one, whether he thinks definitive treatment of this pleural effusion should be entertained, such as TALC pleurodesis, et cetera or, two, whether the lower lobe infiltrate is consistent with entrapped lung, which may need some sort of decortication et cetera. In any case, I will ask him for additional recommendations and his expertise in this matter.
--- NOTE | 2019-05-26 20:00 | CR ---
DATE OF CONSULTATION: 05/26/2019 THe patient is seen at the request of Dr. Herrera for a hydropneumothorax. HISTORY OF PRESENT ILLNESS: The patient is an 84-year-old white male who is now being treated for alcohol withdrawal and is stuporous and unresponsive. Further history is obtained from the son. His alcohol dependence is a surprise to his family. HISTORY OF PRESENT ILLNESS: Evidently, according to the son, the patient has undergone two thoracenteses, one in August 2018, limited chemistries were consistent with transudation, and who underwent yet another thoracentesis on 05/17/2019. After the May thoracentesis, he had a small pneumothorax, which increased in size over the next 24 hours and the patient was therefore admitted for treatment of his pneumothorax. A chest tube catheter was placed anteriorly with near complete resolution of his pneumothorax with an additional 900 mL drainage. He has a history of congestive heart failure (CHF); however, with self diminution of left ventricular function with an ejection fraction of 52%. He has severely dilated right ventricle and pulmonary hypertension. 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 I can get no other further history. The patient did cough during my examination but due to his stupor state could not produce sputum and I have asked the nursing staff to be aggressive with suctioning his mouth. PAST MEDICAL HISTORY: Taken from the history and physical of 05/20/2019: 1. Atrial fibrillation, on Xarelto. 2. Hypertension. 3. Congestive heart failure (CHF). 4. Multiple pleural effusions. 5. Chronic renal disease, creatinine is in the 1.6 range. 6. Sick sinus syndrome, status post a pacemaker. 7. Peripheral arterial disease. 8. Carotid artery disease. 9. Extracerebral vascular disease. 10. Past history of prostate cancer with radiotherapy. 11. History of renal stones. SURGICAL HISTORY: 1. Pacemaker placement. 2. Right carotid endarterectomy. 3. Right knee replacement. FAMILY HISTORY: There is a history of malignancy in the family with mother dying of colon cancer. HABITS: Smoked one pack per day but quit over 40 years ago. Evidently drinks a considerable amount of alcohol, according to the family whiskey. No illicit drug use. TRAVEL HISTORY: He has been to the [facility] and has traveled to [place] yearly. EXPOSURES: No dogs, birds or cats at home at this point in time. Had a dog that a year ago. No exposure to tuberculosis. HOME MEDICATIONS: - Tylenol 500 mg at night - allopurinol 300 mg at night - Bisoprolol 5 mg daily - diltiazem 240 mg twice a day - Lasix 40 mg daily - hydralazine 25 mg three times a day - omeprazole 20 mg daily - potassium 10 mg at night - Xarelto 15 mg daily - trazodone 50 mg at night REVIEW OF SYSTEMS: Not obtainable. PHYSICAL EXAMINATION: Stuporous gentleman lying comfortably in bed. Occasionally coughing with what sounds to be mucous production. In no acute distress. VITAL SIGNS: Temperature 96.4, pulse 108 in atrial fibrillation, respiratory rate 22 without the use of accessory muscles, 93% saturated on room air, blood pressure is 157/92. EYES: Pupils are equal, round and reactive to light. Extraocular muscles are intact. Sclerae nonicteric. NOSE: Without deformity. MOUTH: Mucous membranes are pink and moist. Lips and commissures without lesions. NECK: Supple. There is no jugular venous distention (JVD). No subcutaneous emphysema. Trachea is midline. LUNGS: Laterally and anteriorly show bilateral rhonchi, both during inspiration and expiration. I could not sit him up to examine his posterior chest. ABDOMEN: Soft, nontender. Bowel sounds positive. There is no hepatomegaly. I could not test for costovertebral angle tenderness, although he is quite stuporous. EXTREMITIES: Surprisingly no pretibial edema. No calf tenderness. No differential swelling of the upper extremities. SKIN: Warm, dry and perfused without cyanosis or mottling, including that of the nail beds and knees. NEUROLOGIC: He is somnolent but spontaneously moves all extremities. PSYCHIATRIC: He is somnolent. INVESTIGATIONS: His white count on 05/24/2019 was 10.6 with a hemoglobin and hematocrit of 14.8 and 47.6, respectively. Platelet count is 213 and his differential shows 83% neutrophils, 5% lymphocytes, 9% monocytes. There were no immature forms. No toxic granulations. His chemistries today show a markedly elevated sodium of 146 with a BUN and creatinine of 34 and 1.85, down from 2 days ago of 37 and 2.02. Glucose is 118, calcium is 8.7. PT and INR of 18.4 and 1.56, respectively with a PTT of 39 seconds. His thoracentesis fluid was tested for glucose, which was 129, albumin was 1.7 and LDH was 133 with a corresponding LDH of 206. This looks to be transudative. No cell count was undertaken. His chest x-ray done just before admission on 05/07/2019 shows a hydropneumothorax with small separation of the lung from the chest wall on 05/07/2019. He underwent a thoracentesis where 1350 mL of red-colored fluid was withdrawn. Post biopsy chest x-ray showed a small pneumothorax greater than the pre thoracentesis film and on 05/20/2019 a followup chest x-ray from 05/17/2019 showed increasing pneumothorax and hydropneumothorax. Chest catheter was placed and chest x-ray of 05/22/2019 showed reexpansion of the lung. Chest x-ray done today shows infiltrative process, which has occurred since placement of the chest tube. IMPRESSION: 1. Pleural effusion, transudative. 2. Alcohol withdrawal. 3. Right lower lobe infiltrate, either compression or aspiration. 4. Atrial fibrillation, on anticoagulation. 5. Diagnosis of congestive heart failure (CHF) but with moderately preserved left ventricular function. 6. Pulmonary hypertension. 7. Tricuspid insufficiency. 8. Hypokinetic right ventricle. PLAN/DISCUSSION: I will have to see what is underneath the lung, which is now almost fully expanded to the chest wall. His CT done back in August 2018 did not show any underlying tumor, although it did show the pleural effusion on the right side. I have counseled the family that alcohol withdrawal is fraught with poor outcomes, including mortality. We will have to be very aggressive on his pulmonary toilet. I am hoping that the infiltrate that I see is really post expansion pulmonary edema rather than aspiration. We will follow his white count daily. I will obtain a CT scan of his chest tomorrow without contrast as he has renal insufficiency.
[2019-05-26] MEDS: traZODone 50 MG TAB PO SCH (20:13)
[2019-05-26] MEDS: POTASSIUM CHLORIDE 10 MEQ SR TABLET PO SCH (20:23)
[2019-05-26] MEDS: ACETAMINOPHEN 500 MG TAB PO SCH (20:23)
[2019-05-26] MEDS: allopurinoL 300 MG TAB PO SCH (20:23)
--- NOTE | 2019-05-26 21:32 | IPNPDOC ---
Text Note Date of Service The patient was seen on 05/26/19. NOTE Subjective: No any acute events overnight, patient confused. Objective: Lethargic male HEENT: [place] Lungs: CTA CV: S1-S2 Abdomen: Nontender, nondistended Extremities: No swelling, no cyanosis Psych. Patient is lethargic, disoriented Assessment and plan: 84 year old male with PMH of CHF with preserved EF, atrial fibrillation with pacemeker, hypertension, on xarelto had a second episode of right sided pleural effusion. Patient was admitted for right pneumothorax and persistent right pleural effusion which is essentially unchanged. Also patient was found to have alcohol withdrawal Acute encephalopathy alcohol withdrawal on [facility]WA protocol will need iv meds. Right Hydropneumothorax Post procedure pneumothorax after pleural tap in 05/17/19 His chest x-ray done just before admission on 05/07/2019 shows a hydropneumothorax with small separation of the lung from the chest wall on 05/07/2019. Chest catheter was placed and chest x-ray of 05/22/2019 showed reexpansion of the lung. Chest x-ray done shows infiltrative process, which has occurred since placement of the chest tube. Pleural fluid is transudate Will discuss with Dr Jeffers on Monday possible pleuradesis Right recurrent pleural effusion Transudative Prior pleural effusion from AUGUST 2018 was negative for malignancy. CHF with preserved EF. will continue home diuretics Dr Vee consulted Echo shows severe pulmonary hypertension, Normal EF normal diastolic function. Macrocytosis Secondary to chronic alcohol use. Will check B12 and folate VS,Fishbone, I+O VS, Fishbone, I+O Laboratory Tests 05/26/19 05:06 Vital Signs Date Time Temp Pulse Resp B/P (MAP) Pulse Ox O2 Delivery O2 Flow Rate FiO2 05/26/19 20:13 113 155/76 05/26/19 16:00 96.2 22 95 Room Air 05/25/19 08:00 15.0 05/24/19 04:00 40 I&O- Last 24 Hours up to 6 AM 05/26/19 06:00 Intake Total 180 ml Output Total 500 ml Balance -320 ml HEIDI CUNHA DO May 26, 2019 21:32
[2019-05-26] MEDS ORDERED: NORCO, ANEXSIA 5/325MG TABLET (HYDROcodone/ACETAMINOPHEN) PO PRN (21:45)
[2019-05-27] VITALS (9 sets, daily range): BP systolic 115–158; BP diastolic 59–92
[2019-05-27] MEDS: LORazepam 2 MG/ML VIAL (J2060) IV PRN ×4 (05:34→20:23)
[2019-05-27] MEDS: SLF 3 ML SYR IV SCH ×3 (05:34→21:11)
[2019-05-27 05:55] LABS: BASO # 0.1 10^3/uL (0.0-0.2); EOS # 0.2 10^3/uL (0.0-0.5); EOS % 2.4 % (0.0-3.0); HEMATOCRIT 42.3 % (42.0-52.0); HEMOGLOBIN 13.3 g/dl (13.5-17.5); LYMPH # 0.7 10^3/uL (1.5-5.0); LYMPH % 10.2 % (24.0-44.0); MEAN CORPUSCULAR HEMOGLOBIN 33.3 pg (27.0-33.0); MEAN CORPUSCULAR HGB CONC 31.4 g/dl (32.0-36.5); MEAN CORPUSCULAR VOLUME 105.8 fl (80.0-96.0); MONO # 0.8 10^3/uL (0.0-0.8); MONO % 11.1 % (0.0-5.0); NEUTROPHILS # 5.4 10^3/uL (1.5-8.5); NEUTROPHILS % 74.6 % (36.0-66.0); PLATELET COUNT, AUTOMATED 240 10^3/uL (150-450); WHITE BLOOD COUNT 7.2 10^3/uL (4.0-10.0)
[2019-05-27] MEDS: HALOPERIDOL 5 MG/ML VIAL (J1630) IV PRN (05:59)
[2019-05-27 06:08] LABS: CREATININE FOR GFR 1.82 MG/DL (0.70-1.30); GLOMERULAR FILTRATION RATE 37.9 (>35); POTASSIUM SERUM 4.2 MEQ/L (3.5-5.1)
--- NOTE | 2019-05-27 06:58 | REPVR ---
PROCEDURE INFORMATION: Exam: CT Chest Without Contrast Exam date and time: 05/27/2019 6:42 AM Age: 84 years old Clinical indication: Condition or disease; Other: Compression vs entrapment vs tumor right TECHNIQUE: Imaging protocol: Computed tomography of the chest without contrast. 3D rendering: MIP and/or 3D reconstructed images were created by the technologist. Radiation optimization: All CT scans at this facility use at least one of these dose optimization techniques: automated exposure control; mA and/or kV adjustment per patient size (includes targeted exams where dose is matched to clinical indication); or iterative reconstruction. COMPARISON: CT Chest without contrast 09/04/2018 2:54 PM FINDINGS: Tubes, catheters and devices: Pacemaker in position from the left. Small right chest tube which demonstrates a kink or fold in the anterior soft tissues of the chest wall but does extend just into the anterolateral aspect of the right hemithorax. Lungs: Mild patchy bilateral pulmonary infiltrates with areas of atelectasis in the right lower lobe. Calcified granuloma in the left lower lobe. Pleural space: Moderate right pleural effusion. Trace pneumothorax. Heart: Unremarkable. No cardiomegaly. No pericardial effusion. Pulmonary arteries: The main pulmonary artery measures 32 mm. Aorta: The ascending thoracic aorta measures 35 mm. Lymph nodes: Unremarkable. No enlarged lymph nodes. Kidneys and ureters: Right renal atrophy. There are bilateral renal cysts measuring up to 2.5 cm on the right. Bones/joints: Unremarkable. No acute fracture. Soft tissues: Subcutaneous emphysema about the anterolateral right chest. IMPRESSION: 1. Moderate right pleural effusion which is increased since 09/04/2018. 2. Small right chest tube which demonstrates a fold or kink in the anterior soft tissues of the chest wall but does extend just into the anterolateral right hemithorax and is new since the prior study. There is subcutaneous emphysema about the area of intra in the anterolateral chest and there is trace right pneumothorax since the prior study. 3. Mild patchy bilateral pulmonary infiltrates and mild right lower lobe atelectasis which are new. 4. Right renal atrophy which is similar. Electronically signed by: Edgar Barrear On 05/27/2019 06:57:36 AM
--- NOTE | 2019-05-27 07:34 | REP ---
Clinical: Follow up pneumothorax. Comparison: 05/26/2019. Findings: Right chest tube again identified and previously noted pneumothorax has nearly completely resolved. Opacity in the right mid to lower lung zone suggests atelectasis and possible small layering pleural fluid. Left hemithorax demonstrates trace basilar atelectasis. The cardiac silhouette is normal. The skeletal structures are intact/stable. Impression: 1. Stable right chest tube with near complete resolution to the right pneumothorax. 2. Right lower lobe opacity suggesting atelectasis and possible effusion. Trace left basilar atelectasis. Electronically Signed by Mariusz Mackenzie MD 05/27/2019 07:26 A
[2019-05-27] MEDS: OMEPRAZOLE 20 MG CAP PO SCH (09:52)
[2019-05-27] MEDS: ENOXAPARIN 80 MG/0.8 ML SYRINGE (J1650) SC SCH (09:53)
[2019-05-27] MEDS: MULTIVITAMINS/MINERALS THERAP 1 TAB PO SCH (09:53)
[2019-05-27] MEDS: OXAZEPAM 10 MG CAP PO SCH ×3 (09:53→20:23)
[2019-05-27] MEDS: FOLIC ACID 1 MG TAB PO SCH (09:53)
[2019-05-27] MEDS: bisoproloL fumarate 5 MG TAB PO SCH (09:53)
[2019-05-27] MEDS: LORazepam 2 MG TAB PO PRN (10:25)
[2019-05-27 10:56] LABS: FOLATE 16.3 NG/ML (>5.4)
[2019-05-27] MEDS ORDERED: MIDAZOLAM INJ 2 MG/2 ML VIAL (J2250) As Ordered ONE ×2 (13:50→13:51)
[2019-05-27] MEDS ORDERED: flumazeniL 0.5 MG/5 ML VIAL As Ordered ONE (13:51)
[2019-05-27] MEDS ORDERED: LIDOCAINE 1% MDV 20ML VIAL As Ordered ONE (13:52)
--- NOTE | 2019-05-27 14:04 | IPNPDOC ---
Text Note Date of Service The patient was seen on 05/27/19. NOTE Subjective: No any acute events overnight, patient continues to have confusion, but he is awake. Objective: In moderate distress HEENT: PERRLA, EOMI Lungs: CTA CV: S1-S2 Abdomen: Nontender, nondistended Extremities: No swelling, no cyanosis Psych. Patient is awake, confused CT Chest Without Contrast IMPRESSION: 1. Moderate right pleural effusion which is increased since 09/04/2018. 2. Small right chest tube which demonstrates a fold or kink in the anterior soft tissues of the chest wall but does extend just into the anterolateral right hemithorax and is new since the prior study. There is subcutaneous emphysema about the area of intra in the anterolateral chest and there is trace right pneumothorax since the prior study. 3. Mild patchy bilateral pulmonary infiltrates and mild right lower lobe atelectasis which are new. 4. Right renal atrophy which is similar. Assessment and plan: 84 year old male with PMH of CHF with preserved EF, atrial fibrillation with pacemaker, hypertension, on xarelto had a second episode of right sided pleural effusion. Patient was admitted for right pneumothorax and persistent right pleural effusion which is essentially unchanged. Also patient was found to have alcohol withdrawal Acute encephalopathy alcohol withdrawal on [facility] protocol Right Hydropneumothorax Post procedure pneumothorax after pleural tap in 05/17/19 His chest x-ray done just before admission on 05/07/2019 shows a hydropneumothorax with small separation of the lung from the chest wall on 05/07/2019. Chest catheter was placed and chest x-ray of 05/22/2019 showed reexpansion of the lung. Chest x-ray done shows infiltrative process, which has occurred since placement of the chest tube. Pleural fluid is transudate CT scan on 27/05/19 showed increased right pleural fluid with subcutaneous emphysema. Dr. Jeffers follows him Right recurrent pleural effusion Transudative Prior pleural effusion from AUGUST 2018 was negative for malignancy. CHF with preserved EF. will continue home diuretics Echo shows severe pulmonary hypertension, Normal EF normal diastolic function. Macrocytosis Secondary to chronic alcohol use. B12 and folate wnl VS,Fishbone, I+O VS, Fishbone, I+O Laboratory Tests 05/27/19 05:17 Vital Signs Date Time Temp Pulse Resp B/P (MAP) Pulse Ox O2 Delivery O2 Flow Rate FiO2 05/27/19 12:00 97.5 93 15 135/73 (93) 94 Room Air 05/25/19 08:00 15.0 05/24/19 04:00 40 I&O- Last 24 Hours up to 6 AM 05/27/19 05:59 Intake Total 0 ml Output Total 220 ml Balance -220 ml HEIDI CUNHA DO May 27, 2019 14:04
[2019-05-27 14:49] LABS: PH BODY FLUID 7.654 UNITS (NOT ESTABLISHED); SOURCE, BODY FLUID pH PLEURAL
--- NOTE | 2019-05-27 15:01 | RO ---
DATE OF PROCEDURE: 05/27/2019 PREPROCEDURE DIAGNOSIS: Right pleural effusion, persistent. POSTPROCEDURE DIAGNOSIS: Right pleural effusion, persistent. PROCEDURE: Insertion of right lateral chest tube. SURGEON: Barber Jeffers MD PROCEDURE: Under satisfactory sedation achieved with Ativan, which he had gotten previously for his alcohol withdrawal syndrome. The patient was prepped and draped in the usual sterile fashion. The approximate seventh intercostal space was prepped and draped in the usual sterile fashion and infiltrated with 1% lidocaine, including the skin and subcutaneous tissue and pleura. Incision was made and a tunnel was created in the chest without difficulty. A #24 chest tube was placed without difficulty. It eluted 2000 mL of serosanguineous, more serous than sanguineous fluid. The chest tube was secured to the chest wall with #2 Tevdek suture and attached to the Pleur-evac. Specimens were sent for the requisite chemistries, cytologies, bacteriologies and cell counts. The patient tolerated the procedure well. Chest x-ray is pending.
--- NOTE | 2019-05-27 15:05 | IPN ---
DATE: 05/27/2019 Mr. Medrano is no more awake today than he was yesterday. In fact, he needed more Ativan for alcohol withdrawal and combativeness. His chest CT today showed a considerable pleural effusion. His chest x-ray also shows the same, but it is less convincing than his CT. His vital signs show a maximum temperature (t-max) of 97.4 with a heart rate that ranges between 93 and 88 in a sinus rhythm, respiratory rate of 18 to 15 without the use of accessory muscles, who is 97% saturated on room air. His blood pressure is ranging between 152/92 to 115/64. His intake and output the past 24 hours has been recorded as nothing in and 300 out. His chest tube put out 200 mL. I do not see an IV order on him. He has obviously not taken anything orally secondary to his decreased mental status. PHYSICAL EXAMINATION: LUNGS: He has absent breath sounds in the right lower hemithorax when he is supine. I could not sit him up to listen to him posterior. His percussion note is dull at the right lower hemithorax. Left lung shows rales and rhonchi throughout both inspiratory and expiratory cycles. CARDIAC EXAM: Without murmurs, clicks, gallops or rubs. I cannot feel his point of maximum impulse (PMI). S1, S2 are normal. ABDOMEN: Soft, nontender. Bowel sounds positive. There is no hepatomegaly. No costovertebral angle tenderness. EXTREMITIES: Show no pretibial edema. No calf tenderness. No differential swelling of the upper extremities. SKIN: Warm, dry and perfused without cyanosis or mottling, including that of the nail beds and knees. NECK: Supple. There is no jugular venous distention. No subcutaneous emphysema. Trachea is midline. MOUTH: Shows his mucous membranes to be pink and moist. Lips and commissures without lesions. There is no thrush. EYES: Show his pupils to be equal and reactive. Extraocular motion intact. Sclerae anicteric. NEUROLOGIC: He can move all four extremities but not purposefully. PSYCHIATRIC: Shows him to be comatose. LABORATORY DATA: His white count today is 7.2 with a hemoglobin and hematocrit of 13.3 and 42.3, respectively, with a platelet count of 240 and stable. Differential shows 74% neutrophils, 10% lymphocytes, 11% monocytes. There are no immature forms. No toxic granulations. His electrolytes show a sodium of 148, potassium 4.2, with a total CO2 of 23. BUN and creatinine are 28 and 1.82, respectively. Glucose is 104 with a calcium of 9.0. I discussed his chest x-ray above. It was done portably this morning and shows a feathery opacity in the right lower chest. CT scan also done this morning shows a pleural effusion on the right side. The left side is effusion free. I do not see ascites on the CT scan today. He has a knobby liver, consistent with cirrhosis. He has an enlarged left atrium. I do not see significant mediastinal lymphadenopathy. I cannot tell if there is anything underneath the pleural effusion on the right lower lobe, as it is completely compressed. IMPRESSION: 1. Recurrent right hemithorax and pleural effusion. 2. Dehydration. 3. Right heart failure. 4. Atrial fibrillation. 5. Hypertension. 6. Known congestive heart failure (CHF). 7. Chronic renal disease. 8. Sick sinus syndrome, status post pacemaker. 9. Peripheral artery disease. 10. Cerebrovascular disease. 11. Past history of prostate cancer with radiation therapy. 12. History of renal stones. PLAN/DISCUSSION: I will place a lateral chest tube and fully drain his chest. At that point in time, we will again repeat a CT scan and see if there is anything underneath. I suspect that I will probably do that in 2 days rather than 1 day so as to get a better view after resolution of his post expansion pulmonary edema. I will remove the anterior chest catheter as he has no air leak.
[2019-05-27 15:10] LABS: AMYLASE, BODY FLUID 80 U/L (NOT ESTABLISHED); CHOLESTEROL, BODY FLUID < 50 MG/DL (NOT ESTABLISHED); LDH, BODY FLUID 207 U/L (NOT ESTABLISHED); SOURCE, BODY FLUID AMYLASE PLEURAL; SOURCE, BODY FLUID CHOL PLEURAL; SOURCE, BODY FLUID GLUCOSE PLEURAL; SOURCE, BODY FLUID LDH PLEURAL; SOURCE, BODY FLUID TRIG PLEURAL; TRIGLYCERIDE, BODY FLUID 27 MG/DL (NOT ESTABLISHED)
[2019-05-27 15:11] LABS: SOURCE, BODY FLUID ALBUMIN PLEURAL; SOURCE, BODY FLUID TOT PROTEIN PLEURAL; TOTAL PROTEIN, BODY FLUID 2.5 G/DL (NOT ESTABLISHED)
[2019-05-27] MEDS: D5W/0.9% SODIUM CHLORIDE 1,000 ML IV SCH (15:16)
[2019-05-27 15:23] LABS: PLEURAL FL COLOR RED (COLORLESS); SOURCE, BODY FLUID PLEURAL
[2019-05-27 15:24] LABS: APPEARANCE, BODY FLUID CLOUDY (CLEAR)
[2019-05-27] MEDS ORDERED: LIDOCAINE 1% MDV 20ML VIAL SC ONE (16:45)
--- NOTE | 2019-05-27 17:04 | REP ---
PORTABLE CHEST: AP portable view of the chest is performed. Comparison is made with prior exam of the same day. Right chest tube is present. Opacity in the right lower lung zone and hemithorax have virtually resolved. There is no pneumothorax. There is mild elevation of the left hemidiaphragm. The remainder of the study is unchanged. Electronically Signed by Neel Dias MD 05/29/2019 12:08 P
[2019-05-27] MEDS: traZODone 50 MG TAB PO SCH (20:22)
[2019-05-27] MEDS: allopurinoL 300 MG TAB PO SCH (21:00)
[2019-05-27] MEDS: ACETAMINOPHEN 500 MG TAB PO SCH (21:00)
[2019-05-27] MEDS: POTASSIUM CHLORIDE 10 MEQ SR TABLET PO SCH (21:00)
[2019-05-28] VITALS (8 sets, daily range): BP systolic 117–140; BP diastolic 63–91
[2019-05-28] MEDS: D5W/0.9% SODIUM CHLORIDE 1,000 ML IV SCH (04:30)
[2019-05-28 05:32] LABS: BASO # 0.1 10^3/uL (0.0-0.2); BASO % 0.4 % (0.0-1.0); HEMATOCRIT 38.2 % (42.0-52.0); HEMOGLOBIN 12.4 g/dl (13.5-17.5); LYMPH # 0.4 10^3/uL (1.5-5.0); MEAN CORPUSCULAR HEMOGLOBIN 34.1 pg (27.0-33.0); MEAN CORPUSCULAR HGB CONC 32.5 g/dl (32.0-36.5); MEAN CORPUSCULAR VOLUME 104.9 fl (80.0-96.0); MONO # 0.9 10^3/uL (0.0-0.8); MONO % 7.6 % (0.0-5.0); NEUTROPHILS # 10.2 10^3/uL (1.5-8.5); NEUTROPHILS % 88.7 % (36.0-66.0); PLATELET COUNT, AUTOMATED 216 10^3/uL (150-450); RED BLOOD COUNT 3.64 10^6/uL (4.30-6.10); WHITE BLOOD COUNT 11.5 10^3/uL (4.0-10.0)
[2019-05-28] MEDS: SLF 3 ML SYR IV SCH ×3 (05:55→21:05)
[2019-05-28 07:03] LABS: CALCIUM LEVEL 8.4 MG/DL (8.8-10.2); CREATININE FOR GFR 2.13 MG/DL (0.70-1.30); GLOMERULAR FILTRATION RATE 31.6 (>35); POTASSIUM SERUM 4.5 MEQ/L (3.5-5.1)
--- NOTE | 2019-05-28 07:22 | REP ---
Clinical: Follow up. Pneumothorax. Comparison: 05/27/2019 Findings: Right-sided chest tube in stable position. A trace residual right apical pneumothorax cannot be excluded. Ill-defined pulmonary vasculature with increased interstitial markings and perihilar opacities suggest mild pulmonary edema and correlation is recommended. No focal consolidation. No definite effusion. Mediastinum and cardiac silhouette are stable. Skeletal structures stable. Impression: Cannot exclude mild pulmonary edema. No focal consolidation or effusion. Questionable small residual right apical pneumothorax. Electronically Signed by Mariusz Mackenzie MD 05/28/2019 07:14 A
[2019-05-28] MEDS ORDERED: D5W/0.45% SODIUM CHLORIDE 1,000 ML IV SCH ×2 (07:30→10:15)
--- NOTE | 2019-05-28 08:26 | IPN ---
DATE: 05/28/2019 Mr. Medrano unfortunately continues to struggle. He apparently was very agitated yesterday, which prompted administration of some Ativan, then afterwards his mental status changed again and he is quite somnolent this morning. When I entered the room, he is clearly alert and he moves all four extremities without obvious purpose, but I was not able to establish any communication. His fluid balance yesterday was recorded about negative [address] Jeffers put a chest tube and he drained about 2300 mL of fluid til midnight, and then another vessel additional 400 mL since midnight. He has been receiving IV fluids at 75 mL/h. On physical exam, mental status as above. Vital signs otherwise reveal blood pressure was 170/63, heart rate reveals atrial fibrillation with a rate fluctuating between 70s to 110s, and he saturates 92-94% on room air. Fluid balance was negative 2 liters yesterday, mostly on account of significant output from the chest tube, apparently only 300 mL of urine was made. Laboratory this morning - hemoglobin 12.4, hematocrit 38, platelet count 216,000 and basic metabolic panel - sodium 152, potassium 4.5, BUN 13, creatinine 2.1, glucose 186. 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 Lungs reveal fair air movement, mostly on account that he has shallow respiratory effort. I do not appreciate any crackles or wheezing though. Heart exam reveals irregularly irregular rhythm. There is unchanged murmur best heard over the left lower sternal border. Abdomen is soft. No obvious ascites. No peripheral edema. ASSESSMENT AND PLAN: Mr. Medrano is a rather unfortunate man. He does have chronic atrial fibrillation and sick sinus syndrome with pacemaker placement. He also has chronic diastolic congestive heart failure with secondary pulmonary hypertension and recurrent right pleural effusion. I do believe that the effusion is mostly transudative even though strictly speaking the fluid analysis this morning is towards exudate. I have to admit that the situation is very challenging at this point. I do believe that he will need chronic diuretics, but the management is jeopardized and complicated by concomitant renal insufficiency and currently, also, his inability to take oral medications and have sufficient oral intake. I do not believe it is appropriate to give any diuretics today. I would be advocating administration of more fluids. Overall, I am afraid that his prognosis is rather concerning. MTDD
[2019-05-28] MEDS: bisoproloL fumarate 5 MG TAB PO SCH (09:07)
[2019-05-28] MEDS: FOLIC ACID 1 MG TAB PO SCH (09:07)
[2019-05-28] MEDS: ENOXAPARIN 80 MG/0.8 ML SYRINGE (J1650) SC SCH (09:07)
[2019-05-28] MEDS: MULTIVITAMINS/MINERALS THERAP 1 TAB PO SCH (09:08)
[2019-05-28] MEDS: OMEPRAZOLE 20 MG CAP PO SCH (09:08)
[2019-05-28 11:33] LABS: CALCIUM LEVEL 8.9 MG/DL (8.8-10.2); CREATININE FOR GFR 2.19 MG/DL (0.70-1.30); GLOMERULAR FILTRATION RATE 30.6 (>35)
[2019-05-28] MEDS: LORazepam 2 MG/ML VIAL (J2060) IV PRN ×2 (11:55→13:08)
--- NOTE | 2019-05-28 12:04 | IPN ---
DATE: 05/28/2019 Mr. Medrano is still somnolent. They have now held his Ativan. He looks to be quite dehydrated with very dry mucous membranes and a crusting tongue. I have already started a half normal saline drip, which I will discuss below. His vital signs show a T-max of 98.4 with a heart rate that ranges between 93 and 100, and a respiratory rate of 19 to 22 without the use of accessory muscles, who is 97% saturated on room air, and whose blood pressure is ranging between 117/63 to 135/82. His intake and output the past 24 hours has been recorded as 605 in and 2625 out for a negativity of 2000 mL. He has taken 455 mL in IV. For some reason he is being fed in his somnolent state 150 mL and he has only put out 300 mL in urine. He put out 2300 mL from the chest tube and 420 in the last 12 hours. His weight today is 67.4 kilos compared to 69.9 kilos yesterday. On physical examination, I now hear lung sounds in the right lower hemithorax. He has some coarse rhonchi and rales. I cannot get him to cough because of his somnolent state. Percussion notes are full to the diaphragm laterally and anteriorly. Cardiac exam is without murmurs, clicks, gallops or rubs. I cannot feel his point of maximal impulse (PMI). S1 and S2 are normal. Abdomen is soft and nontender. Bowel sounds are positive. There is no hepatomegaly. I have not tested for costovertebral angle (CVA) tenderness. Extremities show no pretibial edema. No calf tenderness. No differential swelling of the upper extremities. Skin is warm, dry and perfused without cyanosis or mottling including that of the nail beds and the knees. Neck is supple. There is no jugular venous distention. No subcutaneous emphysema. Trachea is midline. Mouth shows his mucous membranes to be crusting and dry. I do not see any thrush. Eyes show his pupils to be equal and reactive. Extraocular motions are intact. Sclera nonicteric. His pupils are rather pinpoint. Neuro shows him to move all four extremities, but not to command and not purposefully. Psychiatric shows him to be somnolent. His white count today is 11.5 with hemoglobin and hematocrit of 12.4 and 38.2, and a platelet count of 216. Differential shows 88% neutrophils, 33% lymphocytes, 7% monocytes. There are no immature forms. No toxic granulations. His electrolytes today show a sodium of 152, which continues to climb, with a BUN and creatinine of 30 and 2.13, which is increased from yesterdays of 28 and 1.82. This is probably secondary to dehydration. Glucose is 186 with a calcium of 8.4. His pleural fluid has come back with a pH of 7.65 with a glucose of 121 and an LDH of 207 with a corresponding serum LDH of 254, and a total protein of 2.5 with a corresponding total protein of 5.9. Cell count shows 1500 white cells, 91% of which are mononuclear and lymphocytes indicating a chronic pleural effusion, which is most likely transudative. It is mildly exudative by Light's criteria for LDH, but transudative by total protein. His chest x-ray today, done portably, now shows his lung fully expanded to the chest wall with the chest tube in good place. There is a little bit of subcutaneous emphysema in the upper hemithorax. There is no air leak. There is an infiltrative process in the left lower lobe as well as the right lower lobe. I did repeat his CT scan today, which did not show any underlying pulmonary mass. I do not see ascites on the abdominal portion of the chest CT. I did note yesterday he had a knobbly liver consistent with cirrhosis. He does have atelectatic compressive changes, and post expansion pulmonary edema changes in the right lower lobe. The infiltrative changes on the left side may represent aspiration. IMPRESSION: 1. Recurrent right pleural effusion. 2. Continued dehydration. 3. Hypernatremia secondary to #2. 4. Right heart failure. 5. Atrial fibrillation. 6. Hypertension. 7. Known congestive heart failure (CHF). 8. Chronic renal disease, worsening. 9. Sick sinus syndrome status post pacemaker. 10. Peripheral arterial disease. 11. Cerebrovascular disease. 12. Past history of prostate cancer with radiation therapy. 13. History of renal stones. PLAN AND DISCUSSION: I have now addressed his pleural effusion as far as its definitive evacuation. He is still putting out quite a bit and I suspect that is secondary to his right heart failure and pulmonary hypertension. I do not see ascites, but certainly liver can contribute to his pleural effusion, but usually within the absence of ascites, the pleura did not fill up from liver failure. I have started him on half normal saline, as he needs water, at 100 mL an hour. I will notify the medical service of that intervention. I will continue his chest tube on suction. This is going to be a very difficult problem and if he does recovery from his alcohol withdrawal, he may very well need a PleurX catheter after removing the chest tube and it recurring. However, he is 84 years old.
--- NOTE | 2019-05-28 12:26 | IPNPDOC ---
Text Note Date of Service The patient was seen on 05/28/19. NOTE Subjective: Patient is somnolent and lethargic today, doesn't follow commands Objective: Objective: Lethargic male HEENT: OPALRHERNANDEZ, EOMI Lungs: Rhonchi and rales over the left lung field CV: S1-S2 Abdomen: Nontender, nondistended Extremities: No swelling, no cyanosis Psych: Patient is somnolent 84 year old male with PMH of CHF with preserved EF, atrial fibrillation with pa cemaker, hypertension, on xarelto had a second episode of right sided pleural effusion. Patient was admitted for right pneumothorax and persistent right pleural effusion which is essentially unchanged. Also patient was found to have alcohol withdrawal Acute encephalopathy alcohol withdrawal DC Haldol on CIWA protocol Right Hydropneumothorax Post procedure pneumothorax after pleural tap in 05/17/19 His chest x-ray done just before admission on 05/07/2019 shows a hydropneumothorax with small separation of the lung from the chest wall on 05/07/2019. Chest catheter was placed and chest x-ray of 05/22/2019 showed reexpansion of the lung. Chest x-ray done shows infiltrative process, which has occurred since placement of the chest tube. Pleural fluid is transudate CT scan on 27/05/19 showed increased right pleural fluid with subcutaneous emphysema. Dr. Jeffers planned to place the second chest tube Right recurrent pleural effusion Transudative Prior pleural effusion from AUGUST 2018 was negative for malignancy. CHF with preserved EF. Echo shows severe pulmonary hypertension, Normal EF normal diastolic function. Macrocytosis Secondary to chronic alcohol use. B12 and folate wnl YUVAL Prerenal secondary to dehydration Continue IV fluid Hypernatremia Secondary to dehydration and inability for oral intake D5 and half normal saline IV infusion BMP every 4 hours Water deficits around 3 L VS,Fishbone, I+O VS, Fishbone, I+O Laboratory Tests 05/28/19 05:09 05/28/19 06:24 05/28/19 10:53 Vital Signs Date Time Temp Pulse Resp B/P (MAP) Pulse Ox O2 Delivery O2 Flow Rate FiO2 05/28/19 09:08 80 135/82 05/28/19 08:00 97.1 19 97 Room Air 05/27/19 14:10 2.0 05/24/19 04:00 40 I&O- Last 24 Hours up to 6 AM 05/28/19 06:00 Intake Total 1205 ml Output Total 2795 ml Balance -1590 ml HEIDI CUNHA DO May 28, 2019 12:26
[2019-05-28 13:50] LABS: CALCIUM LEVEL 8.9 MG/DL (8.8-10.2); CREATININE FOR GFR 2.14 MG/DL (0.70-1.30); GLOMERULAR FILTRATION RATE 31.4 (>35); POTASSIUM SERUM 4.8 MEQ/L (3.5-5.1)
--- NOTE | 2019-05-28 14:24 | REP ---
CT of the chest without IV contrast: Comparison is 05/27/2019. The previous right chest tube has been replaced with a thoracotomy tube. The distal tip of the thoracotomy tube is in the right pleural space posterosuperiorly. The right pleural effusion has significantly decreased in size. There is a small right pneumothorax. There is subcutaneous emphysema along the right lateral chest wall anterosuperiorly. There are infiltrates in the lower lobes bilaterally. These were also present on the comparison study. There are scattered small patchy ground-glass densities in the left upper lobe. These were also present on the comparison study. The thoracic aorta is unremarkable. Cardiac size is upper normal. There is no pericardial effusion. There is calcified atheroma in the coronary arteries. The upper abdomen the visualized portion of the right kidney is markedly atrophic. There is a cortical cyst in the atrophic right kidney. Visualized portion of the left kidney is unremarkable. Visualized portions of the liver, gallbladder, pancreas and spleen are unremarkable except for a few splenic calcified granulomas. Impression: The right chest tube has been replaced with a thoracotomy tube. The right pleural effusion has significantly decreased in size. The tip of the thoracotomy tube is in the pleural space posterior superiorly in the right hemithorax. There is a small right pneumothorax. Subcutaneous emphysema in the anterior right chest wall. There are bilateral infiltrates as described. Atrophic right kidney upper pole. The remainder of the right kidney is not included on the scan. However, the entire right kidney is atrophic on a prior abdomen CT dated 09/04/2018. Electronically Signed by Neel Bell MD 05/28/2019 02:16 P
[2019-05-28] MEDS ORDERED: D5W 1000ML IV ONE (14:30)
[2019-05-28 16:08] LABS: CALCIUM LEVEL 7.9 MG/DL (8.8-10.2); CREATININE FOR GFR 2.09 MG/DL (0.70-1.30); GLOMERULAR FILTRATION RATE 32.3 (>35); POTASSIUM SERUM 4.5 MEQ/L (3.5-5.1)
[2019-05-28] MEDS: D5W 1,000 ML IV SCH ×2 (16:10→21:06)
[2019-05-28] MEDS ORDERED: D5W 1,000 ML IV ONE (18:15)
[2019-05-28 19:49] LABS: BILIRUBIN,DIRECT 0.4 MG/DL (0.0-0.2); BILIRUBIN,TOTAL 0.6 MG/DL (0.2-1.0); CALCIUM LEVEL 8.6 MG/DL (8.8-10.2); CREATININE FOR GFR 2.02 MG/DL (0.70-1.30); GLOMERULAR FILTRATION RATE 33.6 (>35); POTASSIUM SERUM 3.8 MEQ/L (3.5-5.1); TOTAL PROTEIN 5.6 GM/DL (6.4-8.2)
[2019-05-28] MEDS: ACETAMINOPHEN 500 MG TAB PO SCH (21:00)
[2019-05-28] MEDS: POTASSIUM CHLORIDE 10 MEQ SR TABLET PO SCH (21:00)
[2019-05-28] MEDS: allopurinoL 300 MG TAB PO SCH (21:00)
[2019-05-28] MEDS: traZODone 50 MG TAB PO SCH (21:00)
[2019-05-28 23:15] LABS: CREATININE FOR GFR 1.98 MG/DL (0.70-1.30); GLOMERULAR FILTRATION RATE 34.4 (>35)
--- NOTE | 2019-05-28 23:31 | REPVR ---
PROCEDURE INFORMATION: Exam: CT Head Without Contrast Exam date and time: 05/28/2019 10:45 PM Age: 84 years old Clinical indication: Weakness, extremity; Left; Additional info: Increased lethargy today w/ lue flaccidity; R/O CVA TECHNIQUE: Imaging protocol: Computed tomography of the head without contrast. Radiation optimization: All CT scans at this facility use at least one of these dose optimization techniques: automated exposure control; mA and/or kV adjustment per patient size (includes targeted exams where dose is matched to clinical indication); or iterative reconstruction. COMPARISON: No relevant prior studies available. FINDINGS: Brain: Normal. No hemorrhage. Unremarkable white matter. No mass effect. Ventricles: Normal. No ventriculomegaly. Bones/joints: Unremarkable. No acute fracture. Sinuses: Visualized sinuses are unremarkable. No fluid levels. Mastoid air cells: Visualized mastoid air cells are well aerated. Soft tissues: Unremarkable. IMPRESSION: No acute intracranial abnormality. Electronically signed by: Fortino Alvarenga On 05/28/2019 23:30:38 PM
[2019-05-29] VITALS (11 sets, daily range): BP systolic 119–145; BP diastolic 68–89; O2SAT 91
[2019-05-29] MEDS: SLF 3 ML SYR IV SCH ×3 (05:34→20:30)
[2019-05-29 05:51] LABS: BASO # 0.1 10^3/uL (0.0-0.2); BASO % 0.7 % (0.0-1.0); EOS # 0.3 10^3/uL (0.0-0.5); EOS % 3.4 % (0.0-3.0); HEMOGLOBIN 12.8 g/dl (13.5-17.5); LYMPH # 0.6 10^3/uL (1.5-5.0); LYMPH % 6.5 % (24.0-44.0); MEAN CORPUSCULAR HEMOGLOBIN 33.4 pg (27.0-33.0); MEAN CORPUSCULAR HGB CONC 31.2 g/dl (32.0-36.5); MONO # 0.8 10^3/uL (0.0-0.8); MONO % 9.3 % (0.0-5.0); NEUTROPHILS # 7.2 10^3/uL (1.5-8.5); NEUTROPHILS % 79.5 % (36.0-66.0); PLATELET COUNT, AUTOMATED 213 10^3/uL (150-450); RED BLOOD COUNT 3.83 10^6/uL (4.30-6.10)
[2019-05-29 06:09] LABS: CREATININE FOR GFR 1.84 MG/DL (0.70-1.30); GLOMERULAR FILTRATION RATE 37.4 (>35); POTASSIUM SERUM 4.1 MEQ/L (3.5-5.1)
--- NOTE | 2019-05-29 07:39 | REP ---
Portable chest, 06:57 a.m., single AP view with the patient semi upright: Comparison is 05/28/2019. There is a tiny right apical pneumothorax. The right thoracotomy tube is unchanged. There is subcutaneous emphysema in the right axilla, slightly increased. There are no focal infiltrates. The interstitium is mildly coarsened, unchanged. There is slight effacement right costophrenic angle. This could represent atelectasis or small pleural effusion. Dual chamber pacemaker is unchanged. Impression: Tiny right apical pneumothorax. Subcutaneous emphysema in the right axilla. Effacement of the right costophrenic angle. Electronically Signed by Neel Bell MD 05/29/2019 07:30 A
[2019-05-29] MEDS: D5W/LR 1,000 ML IV SCH ×2 (07:41→16:17)
--- NOTE | 2019-05-29 08:29 | IPN ---
DATE: 05/29/2019 Mr. Medrano's condition did not change much since yesterday. His mental status is still the principal problem. He seems to be a lot more alert today than yesterday, but when I talk to him I cannot get really a reasonable communication. Denies any chest pain. Denies any palpitations, but again, I am not sure how reliable this is. Blood pressure 141/83, heart rate is in 80s and 90s. He is afebrile. Saturation 93% on room air. His fluid balance yesterday was recorded as positive 800. He put out about 700 mL from his chest tube and made only about 200 mL of urine, but because of incontinence this is difficult to register. His weight this morning was 67 kg. His mental status as above. His jugular venous pulse (JVP) does not look high. He has a chest tube still on the right side. Lungs sound reasonably clear though. Heart exam reveals relatively regular rhythm with no obvious gallop, murmur at the apex unchanged. Abdomen is soft. Extremities are free of edema. Laboratories: Basic metabolic panel is improving slightly with sodium 146, potassium 4.1 BUN 26, creatinine 1.9, glucose of 100. CBC 12.9, hematocrit 41. ASSESSMENT AND PLAN: Mr. Medrano is an 84-year-old man who has history of atrial fibrillation, sick sinus syndrome, pacemaker placement together with his chronic diastolic heart failure. At this point, we will wait recovery of his neurologic status before deciding on further management. His oral intake is not good at this point, and consequently, I do not believe that we should give him any diuretics.
[2019-05-29] MEDS: ENOXAPARIN 80 MG/0.8 ML SYRINGE (J1650) SC SCH (09:01)
[2019-05-29] MEDS: FOLIC ACID 1 MG TAB PO SCH (09:03)
[2019-05-29] MEDS: ACETAMINOPHEN TAB 650MG DOSE (2X325MG) PO PRN (09:03)
[2019-05-29] MEDS: OMEPRAZOLE 20 MG CAP PO SCH (09:03)
[2019-05-29] MEDS: bisoproloL fumarate 5 MG TAB PO SCH (09:03)
[2019-05-29] MEDS: MULTIVITAMINS/MINERALS THERAP 1 TAB PO SCH (09:03)
[2019-05-29] MEDS ORDERED: MORPHINE 2 MG/ML 1ML VIAL (J2270) IV PRN (11:30)
--- NOTE | 2019-05-29 11:46 | IPNPDOC ---
Text Note Date of Service The patient was seen on 05/29/19. NOTE Subjective: Patient mental status improved today, he is awake, responsive. He is able to answer simple questions. Objective: Objective: NAD HEENT: PERRLA, EOMI Lungs: Rhonchi and rales over the left lung field CV: S1-S2 Abdomen: Nontender, nondistended Extremities: No swelling, no cyanosis Neuro: Moves all 4 limbs, follows simple command, no nuchal rigidity 84 year old male with PMH of CHF with preserved EF, atrial fibrillation with pacemaker, hypertension, on xarelto had a second episode of right sided pleural effusion. Patient was admitted for right pneumothorax and persistent right pleural effusion which is essentially unchanged. Also patient was found to have alcohol withdrawal Acute encephalopathy Improved Did not receive Ativan for past 12 hours Patient is awake, he was able to follow simple commands, however he is still confused. Aspiration precaution alcohol withdrawal on CIWA protocol Right Hydropneumothorax Post procedure pneumothorax after pleural tap in 05/17/19 His chest x-ray done just before admission on 05/07/2019 shows a hydropneumothorax with small separation of the lung from the chest wall on 05/07/2019. Chest catheter was placed and chest x-ray of 05/22/2019 showed reexpansion of the lung. Chest x-ray done shows infiltrative process, which has occurred since placement of the chest tube. Pleural fluid is transudate CT scan on 27/05/19 showed increased right pleural fluid with subcutaneous emphysema. Dr. Jeffers placed the second chest tube Right recurrent pleural effusion Transudative Prior pleural effusion from AUGUST 2018 was negative for malignancy. CHF with preserved EF. Echo shows severe pulmonary hypertension, LVEF is likely normal or near normal, ejection fraction 52% Macrocytosis Secondary to chronic alcohol use. B12 and folate wnl YUVAL Improved Prerenal secondary to dehydration Continue IV fluid Hypernatremia Improved today, sodium level 146 Secondary to dehydration and inability for oral intake Continue IV fluid BMP every 4 hours Na level every 2 hours VS,Fishbone, I+O VS, Fishbone, I+O Laboratory Tests 05/28/19 13:10 05/28/19 15:31 05/28/19 19:01 05/28/19 21:06 05/28/19 22:43 05/29/19 00:59 05/29/19 02:48 05/29/19 05:36 05/29/19 07:06 05/29/19 08:50 05/29/19 10:41 Vital Signs Date Time Temp Pulse Resp B/P (MAP) Pulse Ox O2 Delivery O2 Flow Rate FiO2 05/29/19 09:03 99 134/77 05/29/19 08:00 97.4 18 95 Room Air 05/27/19 14:10 2.0 05/24/19 04:00 40 I&O- Last 24 Hours up to 6 AM 05/29/19 06:00 Intake Total 1780 ml Output Total 765 ml Balance 1015 ml HEIDI CUNHA DO May 29, 2019 11:46
[2019-05-29] MEDS: MORPHINE 2 MG/ML 1ML VIAL (J2270) IV PRN ×2 (13:57→22:44)
--- NOTE | 2019-05-29 14:29 | IPN ---
DATE: 05/29/2019 What a difference 24 hours makes. Mr. Medrano is now responsive, although still a bit groggy. His chest tube however has put out significant amounts. His electrolytes have been nearly corrected. His vital signs show a T-max of 97.8 with a heart rate that ranges between 85 and 99 in atrial fibrillation with a respiratory rate of 18 to 22 without the use of accessory muscles, who is 95% saturated on room air, and whose blood pressure is ranging between 141/83 to 119/87. His intake and output the past 24 hours has been recorded as 1730 in and 895 out for a positivity of 835 mL. All his intake has been by IV. He has put out 200 mL of urine and 695 mL from the chest tube. Weight today is 67 kg compared to 67.4 kg yesterday. On physical examination, he has bilateral rales, rhonchi and wheezing, particularly during expiration for the wheezing. percussion note is full to the diaphragm. Cardiac exam is without murmurs, clicks, gallops or rubs. I cannot feel his point of maximal impulse (PMI). S1 and S2 are normal. Abdomen is soft and nontender. Bowel sounds are positive, but hypoactive. There is no hepatomegaly or costovertebral angle (CVA) tenderness that I can elicit. Extremities show no pretibial edema. No calf tenderness. No differential swelling of the upper extremities. Skin is warm, dry and perfused without cyanosis or mottling, including that of the nail beds and the knees. Neck is supple. There is no jugular venous distention. No subcutaneous emphysema. Trachea is midline. Mouth shows his mucous membranes to be pink and a lot more moist today, but he does have crusting on the tongue. Lips and commissures are without lesions. There is no thrush. Eyes show pupils to be equal and reactive. Extraocular motions are intact. Sclera nonicteric. Neuro shows II-XII intact, along with gross motor and gross sensation intact. Gait is not tested. Psychiatric shows him to be awake, mostly alert. He can answer questions. His white count today is 9.0 with hemoglobin and hematocrit of 12.8 and 41.0, and a platelet count of 213. Differential shows 79% neutrophils, 6% lymphocytes, 9% monocytes. There are no immature forms and no toxic granulations. Chemistries today show a sodium of 146 with a potassium of 4.1, a total carbon dioxide of 25, and a BUN and creatinine of 26 and 1.84. The creatinine is getting back to baseline. Chest x-ray today shows the lung fully expanded to the chest wall. There is a small air space in the right upper chest. Chest tubes in good place. The costophrenic angles look sharp. He still looks to have an infiltrative process in the right lower lobe. X-ray is done portably. IMPRESSION: 1. Recurrent right pleural effusion. 2. Dehydration, resolved. 3. Hypernatremia, resolved. 4. Right heart failure. 5. Atrial fibrillation. 6. Hypertension. 7. Known congestive heart failure (CHF). 8. Chronic renal disease, improving. 9. Sick sinus syndrome status post pacemaker. 10. Peripheral arterial disease. 11. Cerebrovascular disease. 12. Past history of prostate cancer with radiation therapy. 13. History of renal stones. 14. Cirrhosis based on the appearance of his liver on the CT scan. PLAN AND DISCUSSION: I will remove his chest tube from suction. I have a sinking feeling that as his pleural effusion is recurrent that it is going to have a high output and I will have to intentionally place a PleurX catheter. Right now, the goal is to get him over his alcohol withdrawal and get him more functional. As his kidneys improve, if and when they do improve any more, his kidneys should be able to take over removal of excess fluid so that his pleural surface does not act as a transudation area.
[2019-05-29] MEDS ORDERED: LORazepam 2 MG/ML VIAL (J2060) As Ordered ONE (16:14)
[2019-05-29] MEDS: LORazepam 2 MG/ML VIAL (J2060) IV PRN ×2 (16:17→21:50)
[2019-05-29] MEDS: ACETAMINOPHEN 500 MG TAB PO SCH (19:18)
[2019-05-29] MEDS: traZODone 50 MG TAB PO SCH (19:18)
[2019-05-29 20:31] LABS: CALCIUM LEVEL 8.2 MG/DL (8.8-10.2); CREATININE FOR GFR 1.84 MG/DL (0.70-1.30); GLOMERULAR FILTRATION RATE 37.4 (>35)
[2019-05-30] VITALS (23 sets, daily range): BP systolic 126–170; BP diastolic 70–102; O2SAT 95–98
[2019-05-30 02:47] LABS: CALCIUM LEVEL 7.8 MG/DL (8.8-10.2); CREATININE FOR GFR 1.65 MG/DL (0.70-1.30); GLOMERULAR FILTRATION RATE 42.4 (>35); POTASSIUM SERUM 4.1 MEQ/L (3.5-5.1)
[2019-05-30] MEDS: LORazepam 2 MG/ML VIAL (J2060) IV PRN (04:39)
[2019-05-30] MEDS: SLF 3 ML SYR IV SCH ×3 (04:39→20:16)
[2019-05-30] MEDS: MORPHINE 2 MG/ML 1ML VIAL (J2270) IV PRN (05:11)
[2019-05-30 06:07] LABS: BASO # 0.1 10^3/uL (0.0-0.2); BASO % 0.7 % (0.0-1.0); EOS # 0.4 10^3/uL (0.0-0.5); HEMATOCRIT 39.9 % (42.0-52.0); HEMOGLOBIN 12.4 g/dl (13.5-17.5); LYMPH # 0.5 10^3/uL (1.5-5.0); LYMPH % 7.1 % (24.0-44.0); MEAN CORPUSCULAR HEMOGLOBIN 33.1 pg (27.0-33.0); MEAN CORPUSCULAR HGB CONC 31.1 g/dl (32.0-36.5); MEAN CORPUSCULAR VOLUME 106.4 fl (80.0-96.0); MONO # 0.7 10^3/uL (0.0-0.8); MONO % 9.6 % (0.0-5.0); NEUTROPHILS # 5.5 10^3/uL (1.5-8.5); NEUTROPHILS % 76.6 % (36.0-66.0); PLATELET COUNT, AUTOMATED 213 10^3/uL (150-450); RED BLOOD COUNT 3.75 10^6/uL (4.30-6.10); WHITE BLOOD COUNT 7.2 10^3/uL (4.0-10.0)
[2019-05-30 06:38] LABS: CALCIUM LEVEL 8.6 MG/DL (8.8-10.2); CREATININE FOR GFR 1.68 MG/DL (0.70-1.30); GLOMERULAR FILTRATION RATE 41.5 (>35)
--- NOTE | 2019-05-30 07:20 | REP ---
Clinical: Post expansion pulmonary edema. Comparison: 05/29/2019. Findings: Right-sided chest tube in stable position. Small residual right apical pneumothorax cannot be excluded. Small amount of subcutaneous emphysema along the right chest wall stable. Mediastinum and cardiac silhouette stable. Lung guerra demonstrate diffuse stable opacities and mildly prominent interstitial markings suggesting the possibility of interstitial edema versus scattered air space disease. No obvious effusion. Skeletal structures stable. Impression: 1. Relatively stable examination. 2. Cannot exclude mild interstitial edema versus mild scattered air space disease. Electronically Signed by Mariusz Mackenzie MD 05/30/2019 07:12 A
[2019-05-30] MEDS: FOLIC ACID 1 MG TAB PO SCH (08:04)
[2019-05-30] MEDS: OMEPRAZOLE 20 MG CAP PO SCH (08:04)
[2019-05-30] MEDS: bisoproloL fumarate 5 MG TAB PO SCH (08:05)
[2019-05-30] MEDS: MULTIVITAMINS/MINERALS THERAP 1 TAB PO SCH (08:05)
--- NOTE | 2019-05-30 08:08 | IPN ---
DATE: 05/30/2019 Unfortunately, Mr. Medrano does not seem to be improving very much. Apparently during the day yesterday he was relatively appropriate, did not need much sedation during the day, but at night got agitated again and so he received a relatively low dose of benzodiazepines. This morning though he is sleeping and it is difficult to arouse him, and when I wake him up he falls asleep very rapidly. Consequently, I was not able to obtain any history from him. He was evaluated by speech therapy and apparently they had difficulty swallowing so currently he is n.p.o. He will be reevaluated later today. VITAL SIGNS: Blood pressure 140/70, heart rate remains from 70s to low 100s atrial fibrillation. He is afebrile. Saturation 96-100% on room air. Fluid balance yesterday was recorded as positive 1800, even though the documentation of output again is challenging because he has incontinence of urine. He did put out about 540 mL out of his chest tube and he already put out about 300 today. He is certainly is not alert and it is likely that he would not be oriented. His JVP is difficult to tow feeder but it does not look grossly high to me. The lungs are still somewhat diminished, but I do not appreciate any crackles or wheezing. There is a chest tube on the right-sided. Heart exam reveals irregular rhythm. There is about 3/6 intensity blowing holosystolic murmur at the apex. Abdomen is soft, nontender. There is no peripheral edema. LABORATORY: Sodium 145, potassium 4.0, BUN 20, creatinine 1.7 for a GFR 42 and glucose 131, hemoglobin 12.4, hematocrit 39, platelet count 213,000. ASSESSMENT/PLAN: Mr. Medrano is an 84-year-old man who has chronic diastolic heart failure, chronic atrial fibrillation, mitral insufficiency and chronic diastolic congestive heart failure with concomitant renal insufficiency. After receiving chest tube for pneumothorax, unfortunately his hospitalization was severely affected by alcohol withdrawal. This is now the dominant clinical problem. At this point I talked to the nursing staff it would be my preference that the sedation is released as much as possible because without the patient being able eat and drink, we will have a very hard time adjusting his medications. So far, he has not been receiving any diuretics, but they will have to be restarted on the regular oral intake is resumed. Otherwise, his atrial fibrillation is rate controlled. He has been anticoagulated with Lovenox. Again, lack of oral intake limits administration of oral anticoagulants.
[2019-05-30] MEDS: ENOXAPARIN 80 MG/0.8 ML SYRINGE (J1650) SC SCH (08:31)
[2019-05-30] MEDS: D5W/LR 1,000 ML IV SCH ×3 (08:31→17:02)
[2019-05-30 10:31] LABS: CALCIUM LEVEL 7.9 MG/DL (8.8-10.2); CREATININE FOR GFR 1.55 MG/DL (0.70-1.30); GLOMERULAR FILTRATION RATE 45.6 (>35); POTASSIUM SERUM 3.9 MEQ/L (3.5-5.1)
--- NOTE | 2019-05-30 13:34 | IPNPDOC ---
Text Note Date of Service The patient was seen on 05/30/19. NOTE Subjective: Patient is lethargic in the morning, minimally responsive. Objective: Lethargic male HEENT: PERRHERNANDEZ, EOMI Lungs: Rhonchi and rales over the left lung field CV: S1-S2 Abdomen: Nontender, nondistended Extremities: No swelling, no cyanosis Neuro: Moves all 4 limbs, follows simple command, no nuchal rigidity 84 year old male with PMH of CHF with preserved EF, atrial fibrillation with pacemaker, hypertension, on xarelto had a second episode of right sided pleural effusion. Patient was admitted for right pneumothorax and persistent right pleural effusion which is essentially unchanged. Also patient was found to have alcohol withdrawal Acute encephalopathy Patient received 2 doses of Ativan for past 12 hours Aspiration precaution Lorazepam discontinued Opioids discontinued Right Hydropneumothorax Post procedure pneumothorax after pleural tap in 05/17/19 His chest x-ray done just before admission on 05/07/2019 shows a hydropneumothorax with small separation of the lung from the chest wall on 05/07/2019. Chest catheter was placed and chest x-ray of 05/22/2019 showed reexpansion of the lung. Chest x-ray done shows infiltrative process, which has occurred since placement of the chest tube. Pleural fluid is transudate CT scan on 27/05/19 showed increased right pleural fluid with subcutaneous emphysema. Dr. Jeffers placed the second chest tube Most likely patient will need Pleurx catheter Right recurrent pleural effusion Transudative Prior pleural effusion from AUGUST 2018 was negative for malignancy. CHF with preserved EF. Echo shows severe pulmonary hypertension, LVEF is likely normal or near normal, ejection fraction 52% Macrocytosis Secondary to chronic alcohol use. B12 and folate wnl YUVAL Improved Prerenal secondary to dehydration Continue IV fluid Hypernatremia sodium level 148 Secondary to dehydration and inability for oral intake Continue IV fluid BMP every 4 hours VS,Fishbone, I+O VS, Fishbone, I+O Laboratory Tests 05/29/19 14:48 05/29/19 19:54 05/30/19 02:13 05/30/19 05:53 05/30/19 09:56 Vital Signs Date Time Temp Pulse Resp B/P (MAP) Pulse Ox O2 Delivery O2 Flow Rate FiO2 05/30/19 11:00 96 Room Air 1/30/20 08:00 97.8 88 20 126/70 (88) 05/27/19 14:10 2.0 05/24/19 04:00 40 I&O- Last 24 Hours up to 6 AM 05/30/19 06:00 Intake Total 2800 ml Output Total 960 ml Balance 1840 ml HEIDI CUNHA DO May 30, 2019 13:34
--- NOTE | 2019-05-30 13:35 | IPN ---
DATE: 05/30/2019 Mr. Medrano was given an extra two doses of Ativan yesterday and this morning. He is therefore a lot more somnolent today than he was yesterday. He has put out a little bit less from his chest tube in the last 24 hours. His vital signs show a maximum temperature (t-max) of 97.8 with a heart rate that ranges between 88 and 99 in atrial fibrillation with a respiratory rate of 16 to 20 without the use of accessory muscles, who is 96% saturated on room air, and whose blood pressure is ranging between 126/70 to 145/80. His intake and output the past 24 hours has been recorded as 2730 in and 940 out for a positivity of 1790 mL. He has put out 540 mL from the chest tube compared to 675 mL. Weight today is 70 kg compared to 67 kg yesterday, consistent with the positive intake and output. PHYSICAL EXAMINATION: LUNGS: He has scattered coarse rhonchi throughout both lungs. Percussion note is full to the diaphragm. He does not cough when I ask him to. CARDIAC EXAM: Without murmurs, clicks, gallops or rubs. I cannot feel his point of maximum impulse (PMI). S1, S2 are normal. ABDOMEN: Soft, nontender. Bowel sounds positive. There is no hepatomegaly. No costovertebral angle tenderness. EXTREMITIES: Show no pretibial edema. No calf tenderness. No differential swelling of the upper extremities. SKIN: Warm, dry and perfused without cyanosis or mottling, including that of the nail beds and knees. NECK: Supple. There is no jugular venous distention. No subcutaneous emphysema. Trachea is midline. MOUTH: Shows his mucous membranes to be pink and moist with much less crusting of his tongue. EYES: Show his pupils to be equal and reactive. Extraocular motion intact. Sclerae anicteric. NEUROLOGIC: Shows him to move all four extremities spontaneously. Gross II through XII intact. PSYCHIATRIC: Shows him to be somnolent but awake. LABORATORY DATA: His white count today is 7.2 with hemoglobin and hematocrit of 12.4 and 39.9, respectively, with a platelet count of 213. Differential shows 76% neutrophils, 7% lymphocytes, 9% monocytes. There are no immature forms and no toxic granulations. His electrolytes show that his sodium is creeping back up to 148 from 145 yesterday. BUN and creatinine are 20 and 1.55, which are improved with a total CO2 of 27. Chest x-ray today shows the lung fully expanded to the chest wall. He does look to have diffuse alveolar process. There is cephalization of vessels; however, this is only a semi upright film and I really cannot say that with certainty. Costophrenic angles are sharp. There is no lateral film. Chest tubes are in good place. IMPRESSION: 1. Recurrent right pleural effusion, drained with chest tube, continuing. 2. Dehydration, resolved. 3. Hypernatremia, a little bit worse today . 4. Right heart failure. 5. Atrial fibrillation. 6. Hypertension. 7. Known congestive heart failure (CHF). 8. Chronic renal disease, improving. 9. Sick sinus syndrome status post pacemaker. 10. Peripheral arterial disease. 11. Cerebrovascular disease. 12. Past history of prostate cancer with radiation therapy. 13. History of renal stones. 14. Cirrhosis based on the appearance of his liver on the CT scan. 15. Diastolic heart failure. PLAN AND DISCUSSION: I will again continue the chest tube. His predominant problem right now is alcohol withdrawal and weaning him off the long-acting benzodiazepine. I do suspect that I will eventually have to remove his chest tube and let the fluid reaccumulate and then place a PleurX catheter.
[2019-05-30 14:53] LABS: CALCIUM LEVEL 7.9 MG/DL (8.8-10.2); CREATININE FOR GFR 1.51 MG/DL (0.70-1.30); POTASSIUM SERUM 4.7 MEQ/L (3.5-5.1)
[2019-05-30] MEDS ORDERED: LORazepam 2 MG/ML VIAL (J2060) IV STA (16:20)
[2019-05-30] MEDS: ACETAMINOPHEN 500 MG TAB PO SCH ×2 (20:15→20:31)
[2019-05-30 20:38] LABS: CALCIUM LEVEL 8.1 MG/DL (8.8-10.2); CREATININE FOR GFR 1.43 MG/DL (0.70-1.30); POTASSIUM SERUM 3.8 MEQ/L (3.5-5.1)
[2019-05-31] VITALS (11 sets, daily range): BP systolic 118–173; BP diastolic 64–101; O2SAT 96–98
[2019-05-31] MEDS: D5W/LR 1,000 ML IV SCH ×3 (01:38→18:18)
[2019-05-31 02:28] LABS: CALCIUM LEVEL 7.8 MG/DL (8.8-10.2); CREATININE FOR GFR 1.43 MG/DL (0.70-1.30); POTASSIUM SERUM 4.1 MEQ/L (3.5-5.1)
[2019-05-31] MEDS: LORazepam 2 MG/ML VIAL (J2060) IV PRN ×2 (02:36→22:34)
[2019-05-31] MEDS ORDERED: LABETALOL HCL 100 MG/20 ML VIAL IV ONE (05:00)
[2019-05-31 05:16] LABS: BASO # 0.1 10^3/uL (0.0-0.2); BASO % 0.9 % (0.0-1.0); EOS # 0.3 10^3/uL (0.0-0.5); EOS % 3.8 % (0.0-3.0); HEMOGLOBIN 13.6 g/dl (13.5-17.5); LYMPH # 0.7 10^3/uL (1.5-5.0); LYMPH % 9.7 % (24.0-44.0); MEAN CORPUSCULAR HEMOGLOBIN 34.3 pg (27.0-33.0); MEAN CORPUSCULAR HGB CONC 31.6 g/dl (32.0-36.5); MEAN CORPUSCULAR VOLUME 108.3 fl (80.0-96.0); MONO # 0.7 10^3/uL (0.0-0.8); MONO % 9.9 % (0.0-5.0); NEUTROPHILS # 5.3 10^3/uL (1.5-8.5); NEUTROPHILS % 74.7 % (36.0-66.0); PLATELET COUNT, AUTOMATED 215 10^3/uL (150-450); RED BLOOD COUNT 3.97 10^6/uL (4.30-6.10)
[2019-05-31] MEDS: SLF 3 ML SYR IV SCH ×3 (05:27→22:34)
[2019-05-31 05:44] LABS: CALCIUM LEVEL 8.5 MG/DL (8.8-10.2); CREATININE FOR GFR 1.44 MG/DL (0.70-1.30); GLOMERULAR FILTRATION RATE 49.6 (>35); POTASSIUM SERUM 4.1 MEQ/L (3.5-5.1)
--- NOTE | 2019-05-31 07:20 | REP ---
Clinical: Pulmonary edema. Technique: Portable semiupright AP view. Comparison: 05/30/2019. Findings: Right chest tube in stable position. Small amount of residual subcutaneous emphysema in the right axillary region. Mediastinum and cardiac silhouette are stable. Perihilar and lower lobe opacities (left greater than right) are suggested along with mild pulmonary vascular edema including possible small amount of trapped fluid in the right fissure. Very small residual right apical pneumothorax is again suspected. Impression: 1. Perihilar and lower lobe opacities suggesting elements of atelectasis which may be slightly increased from prior examination. 2. Mild pulmonary edema. 3. Trace right apical pneumothorax. Electronically Signed by Mariusz Mackenzie MD 05/31/2019 07:12 A
--- NOTE | 2019-05-31 08:34 | IPN ---
DATE: 05/31/2019 Mr. Medrano is doing much better this morning than he did yesterday morning. He is a lot more alert, and he is also partially oriented. He denies any dyspnea or chest pain. He is even saying that he would like to eat something. Apparently, he got only a single dose of Ativan last night for agitation and slept throughout a good part of the night. Unfortunately, he was unable to take the evening Cardizem and consequently his heart rate and blood pressure were quite elevated overnight. Vital Signs: Blood pressure is 168/88, heart rate has been in low 100s. He is afebrile. Saturation is 99% on room air. Weight was recorded 71.9. He yesterday had positive fluid balance a little over 2 liters. He put out about 640 mL from his chest tube. Urine output was recorded only 200 mL but due to incontinence that is certainly not accurate. He is alert and oriented times one. His jugular venous pulse (JVP) does not seem high to me. Lungs are reasonably clear. There is still a chest tube on the right-sided. Heart exam irregularly irregular rhythm. There is a blowing murmur at the apex maybe 2 or 3/6 intensity. I do not appreciate any gallop per se. Abdomen is soft. There is no edema. LABORATORIES: Hemoglobin 13.6, hematocrit 43, and basic metabolic panel is sodium 146, potassium 4.1, BUN 17, creatinine 1.4, and glucose 97. ASSESSMENT AND PLAN: Mr. Medrano all continues to be about the same. I am hoping that we are seeing the tail end of his alcohol withdrawal. My hope would be that we will start seeing improvement of the mental status and he will start having oral intake. Once that should be the case, I would give him back oral diuretics. My tentative starting dose would be about 40 mg of torsemide approximately. Hopefully that will help to eliminate some of the drainage from the chest tube. Otherwise, the remaining medications will be continued. Once the oral intake is reliably established, I think we can switch him to oral anticoagulation. I am not going to sign him off for the weekend coverage for cardiology but please do not hesitate to call if there are any questions or concerns.
[2019-05-31] MEDS: MULTIVITAMINS/MINERALS THERAP 1 TAB PO SCH (08:42)
[2019-05-31] MEDS: ENOXAPARIN 80 MG/0.8 ML SYRINGE (J1650) SC SCH (08:42)
[2019-05-31] MEDS: FOLIC ACID 1 MG TAB PO SCH (08:43)
[2019-05-31] MEDS: OMEPRAZOLE 20 MG CAP PO SCH (08:43)
[2019-05-31] MEDS: bisoproloL fumarate 5 MG TAB PO SCH (08:43)
--- NOTE | 2019-05-31 11:19 | IPNPDOC ---
Text Note Date of Service The patient was seen on 05/31/19. NOTE Subjective: Patient is alert, awake, oriented in the morning. Patient mental status remarkably improved. Patient developed increased blood pressure early in the morning, IV fluid was stopped. Patient started to eat. Objective: NAD HEENT: PERRLA, EOMI Lungs: Mild rhonchi over right lung field CV: S1-S2 Abdomen: Nontender, nondistended Extremities: No swelling, no cyanosis Neuro: Moves all 4 limbs, follows simple command, no nuchal rigidity 84 year old male with PMH of CHF with preserved EF, atrial fibrillation with pacemaker, hypertension, on xarelto had a second episode of right sided pleural effusion. Patient was admitted for right pneumothorax and persistent right pleural effusion which is essentially unchanged. Also patient was found to have alcohol withdrawal. Acute encephalopathy Resolved Aspiration precaution Lorazepam o.5 mg PO PRN Opioids discontinued Right Hydropneumothorax Post procedure pneumothorax after pleural tap in 05/17/19 His chest x-ray done just before admission on 05/07/2019 shows a hydropneumothorax with small separation of the lung from the chest wall on 05/07/2019. Chest catheter was placed and chest x-ray of 05/22/2019 showed ree xpansion of the lung. Chest x-ray done shows infiltrative process, which has occurred since placement of the chest tube. Pleural fluid is transudate CT scan on 27/05/19 showed increased right pleural fluid with subcutaneous emphysema. Dr. Jeffers placed the second chest tube Most likely patient will need Pleurx catheter Right recurrent pleural effusion Transudative Prior pleural effusion from AUGUST 2018 was negative for malignancy. CHF with preserved EF. Echo shows severe pulmonary hypertension, LVEF is likely normal or near normal, ejection fraction 52% Cardiology team follows him and recommended torsemide and oral targeted anticoagulation Macrocytosis Secondary to chronic alcohol use. B12 and folate wnl YUVAL stable Prerenal secondary to dehydration Hypernatremia sodium level 146 Secondary to dehydration. Patient started to eat I expected to improve sodium level Continue to monitor BMP VS,Fishbone, I+O VS, Fishbone, I+O Laboratory Tests 05/30/19 14:23 05/30/19 20:00 05/31/19 01:55 05/31/19 05:03 Vital Signs Date Time Temp Pulse Resp B/P (MAP) Pulse Ox O2 Delivery O2 Flow Rate FiO2 05/31/19 08:43 114 160/99 (119) 05/31/19 08:00 96 Room Air 05/31/19 05:15 96.9 18 05/27/19 14:10 2.0 I&O- Last 24 Hours up to 6 AM 05/31/19 06:00 Intake Total 2240 ml Output Total 933 ml Balance 1307 ml HEIDI CUNHA DO May 31, 2019 11:19
[2019-05-31 12:02] LABS: BILIRUBIN,TOTAL 0.5 MG/DL (0.2-1.0); CALCIUM LEVEL 8.6 MG/DL (8.8-10.2); CREATININE FOR GFR 1.54 MG/DL (0.70-1.30); GLOMERULAR FILTRATION RATE 45.9 (>35); POTASSIUM SERUM 3.8 MEQ/L (3.5-5.1); TOTAL PROTEIN 5.2 GM/DL (6.4-8.2)
[2019-05-31] MEDS: TORSEMIDE 20 MG TAB PO SCH (12:13)
--- NOTE | 2019-05-31 16:21 | IPN ---
DATE: 05/31/2019 What a difference in 24 hours. Mr. Medrano is comfortably sitting in a chair and conversational, and awake and alert. He even put his hand out to shake my hand. His vital signs show a maximum temperature (Tmax) of 97.9 with a heart rate that ranges between 110-104 in atrial fibrillation with a respiratory rate of 18-20 without the use of accessory muscles, who is 99% saturated on room air, and whose blood pressure is ranging between 173/101-168/88. His intake and output for the past 24 hours has been recorded as 2960 in and 843 out for a positivity of 2117 mL. He has had four incontinent voids however. His weight today is 71.0 kg compared to 70.1 kg yesterday. He has put out 643 mL from the chest tube. On physical exam, his lungs are actually rather clear with scattered coarse rhonchi which clear with coughing. Percussion note is full to the diaphragm. Cardiac exam is without murmurs, clicks, gallops or rubs. I cannot feel his point of maximum impulse (PMI). S1 and S2 are normal. Abdomen is soft, nontender. Bowel sounds positive. There is no hepatomegaly. No costovertebral angle (CVA) tenderness. Extremities show no pretibial edema. No calf tenderness. No differential swelling of the upper extremities. Skin is warm, dry and perfused without cyanosis or mottling, including that of the nail beds and knees. Neck is supple. There is no jugular venous distention. No subcutaneous emphysema. Trachea is midline. Mouth shows his mucous membranes to be pink and moist. Lips and commissures without lesions. There is no thrush. All the crusting on his tongue has now been removed and resolved. Eyes show his pupils to be equal and reactive. Extraocular motion intact. Sclerae anicteric. Neuro shows II-XII intact along with gross motor and gross sensation. Gait is not tested. Psychiatric shows him to be awake and alert and conversational. His white count today is 7.0, with hemoglobin and hematocrit of 13.6 and 43.0, with a platelet count of 215. Differential shows 74% neutrophils, 9% lymphocytes, and 9% monocytes. There are no immature forms. No toxic granulations. His electrolytes show a marginally high sodium of 146 with a BUN and creatinine of 18 and 1.54, slightly up from 17 and 1.44. This is basically his baseline. Calcium is 8.6 with an albumin of 2.0. His chest x-ray today shows the lung fully expanded to the chest wall. The costophrenic angles are sharp. Chest tube is in good place. It is done portably and semiupright. I see no infiltrates. He may have a little fluid in the minor fissure on the right side. IMPRESSION: 1. Recurrent right pleural effusion, drained with chest tube, continuing. 2. Dehydration, resolved. 3. Hypernatremia, improving. 4. Right heart failure, continuing. 5. Atrial fibrillation. 6. Hypertension. 7. Diastolic congestive heart failure (CHF). 8. Chronic renal disease, improving and stabilized. 9. Sick sinus syndrome status post pacemaker. 10. Peripheral vascular disease. 11. Cerebrovascular disease. 12. Past history of prostate cancer with radiation therapy. 13. History of renal stones. 14. Cirrhosis based on the appearance of his liver on his CT scan. PLAN AND DISCUSSION: I will have to continue leave the chest tube in place. I am gratified that he is awake and alert, and will have to come to a decision the next few days about when to remove the chest tube and wait for placement with a PleurX catheter. [facility]
[2019-05-31] MEDS: ACETAMINOPHEN 500 MG TAB PO SCH (20:24)
[2019-05-31] MEDS ORDERED: OLANZapine INTRAMUSCULAR 10 MG VIAL (S0166) IM ONE (23:15)
[2019-06-01] MEDS: LORazepam 2 MG/ML VIAL (J2060) IV PRN ×4 (01:58→20:50)
[2019-06-01] MEDS: D5W/LR 1,000 ML IV SCH ×4 (02:38→23:01)
[2019-06-01 04:00] VITALS: BP 164/93
[2019-06-01] MEDS: SLF 3 ML SYR IV SCH ×3 (04:33→20:52)
[2019-06-01 05:52] LABS: BASO # 0.1 10^3/uL (0.0-0.2); BASO % 1.3 % (0.0-1.0); EOS # 0.2 10^3/uL (0.0-0.5); EOS % 2.9 % (0.0-3.0); HEMATOCRIT 37.3 % (42.0-52.0); HEMOGLOBIN 12.3 g/dl (13.5-17.5); LYMPH # 0.8 10^3/uL (1.5-5.0); LYMPH % 12.4 % (24.0-44.0); MEAN CORPUSCULAR HEMOGLOBIN 34.1 pg (27.0-33.0); MEAN CORPUSCULAR VOLUME 103.3 fl (80.0-96.0); MONO # 0.7 10^3/uL (0.0-0.8); MONO % 10.3 % (0.0-5.0); NEUTROPHILS # 4.9 10^3/uL (1.5-8.5); NEUTROPHILS % 72.5 % (36.0-66.0); PLATELET COUNT, AUTOMATED 246 10^3/uL (150-450); RED BLOOD COUNT 3.61 10^6/uL (4.30-6.10); WHITE BLOOD COUNT 6.8 10^3/uL (4.0-10.0)
[2019-06-01 06:12] LABS: CALCIUM LEVEL 8.3 MG/DL (8.8-10.2); CREATININE FOR GFR 1.81 MG/DL (0.70-1.30); GLOMERULAR FILTRATION RATE 38.1 (>35); POTASSIUM SERUM 3.8 MEQ/L (3.5-5.1)
--- NOTE | 2019-06-01 07:25 | REP ---
Portable chest, 06:50, single AP view with the the patient semi upright: Comparison is 05/31/2019. The right thoracotomy tube is unchanged. There is no pneumothorax. There is a small volume of subcutaneous emphysema along the right lateral chest wall, unchanged. Subtle bibasilar densities are again identified, unchanged from the lung guerra otherwise clear. Cardiac size is normal. Dual-chamber pacemaker is unchanged. Impression: No significant interval change. Electronically Signed by Neel Bell MD 06/01/2019 07:16 A
[2019-06-01 08:01] VITALS: BP 137/84
[2019-06-01] MEDS: FOLIC ACID 1 MG TAB PO SCH (08:30)
[2019-06-01] MEDS: bisoproloL fumarate 5 MG TAB PO SCH (08:31)
[2019-06-01] MEDS: TORSEMIDE 20 MG TAB PO SCH (08:31)
[2019-06-01] MEDS: MULTIVITAMINS/MINERALS THERAP 1 TAB PO SCH (08:31)
[2019-06-01] MEDS: APIXABAN 2.5 MG TAB (ELIQUIS) PO SCH ×2 (08:32→20:51)
[2019-06-01] MEDS: amLODIPine 10 MG TAB PO SCH (08:32)
[2019-06-01] MEDS: OMEPRAZOLE 20 MG CAP PO SCH (08:32)
[2019-06-01] MEDS: QUEtiapine FUMARATE 25 MG TAB PO SCH (09:27)
--- NOTE | 2019-06-01 11:11 | IPN ---
DATE: 06/01/2019 Mr. Medrano has been very agitated and confused and therefore he has been given another two doses of Ativan. He is awake, but rather somnolent. This is a major step backwards from where he was yesterday when he was sitting in a chair perfectly lucid. His vital signs show a maximum temperature (Tmax) of 97.9 with a heart rate that ranges between 99 and 114 in atrial fibrillation with a respiratory rate of 20-24 without the use of accessory muscles who is 100% saturated on room air, and whose blood pressure is ranging between 164/93 to 137/84. His intake and output for the past 24 hours has been recorded as 600 in and 1427 out for a negativity of 827 mL. He has had seven incontinent voids however. He is recorded as putting out 377 from his chest tube although he is recorded as having two chest tubes rather than 1. I do not know if I can believe the chest tube output. His weight today is 68.8 kg compared to 71.9 kg. On physical exam, he has faint crackles throughout both lungs with rhonci. Percussion note is fully to the diaphragm. Cardiac exam is without murmurs, clicks, gallops or rubs. I cannot feel his point of maximum impulse (PMI). S1 and S2 are normal. Abdomen is soft, nontender. Bowel sounds positive. There is no hepatomegaly. No costovertebral angle (CVA) tenderness. Extremities show no pretibial edema. No calf tenderness. No differential swelling of the upper extremities. Skin is warm, dry and perfused without cyanosis or mottling, including that of the nail beds and knees. Neck is supple. There is no jugular venous distention. No subcutaneous emphysema. Trachea is midline. Mouth shows his mucous membranes to be pink and moist. Lips and commissures without lesions. There is no thrush. There is no crusting that he has had throughout his hospital stay has now gone. Eyes show his pupils to be equal and reactive. Extraocular motion intact. Sclerae anicteric. Neuro shows II-XII intact along with gross motor and gross sensation. Gait is not tested. Psychiatric shows him to be somnolent and confused. His white count today is 6.8 with hemoglobin and hematocrit of 12.3 and 37.3 respectively this is down from 13 and 43 yesterday. Platelet count is 246 with a differential that shows 72% neutrophils and 12% lymphocytes and 7% monocytes. There are no immature forms and no toxic granulations. His sodium is back to 148 and again creeping up. Potassium 3.8 with a BUN and creatinine of 19 and 1.81. Again creeping up. Glucose 108 with a calcium of 8.3, It looks as though he needs some more free water. His chest x-ray today shows the lung fully expanded to the chest wall. It is done portably. Chest tube looks to be in good place. There is an infiltrate pattern in the right lower and right lower and left lower lobes which may just be atelectasis. IMPRESSION: 1. Recurrent right pleural effusion, drained with chest tube, continuing. 2. Dehydration, resolved. 3. Hypernatremia, worse. 4. Right heart failure, continuing. 5. Atrial fibrillation. 6. Hypertension. 7. Diastolic congestive heart failure (CHF). 8. Chronic renal disease, becoming worse. 9. Sick sinus syndrome status post pacemaker. 10. Peripheral vascular disease. 11. Cerebrovascular disease. 12. Past history of prostate cancer with radiation therapy. 13. History of renal stones. 14. Cirrhosis based on the appearance of his liver on his CT scan. PLAN AND DISCUSSION: It is a disappointing that he has gone backwards on his mental status. We are going to try to get him down on his sugar today. He is still putting out too much from the chest tube for me to remove it. It is however trending downwards with his chest tube output down to 377 per day if that is accurate. His weight is also coming down.
[2019-06-01 11:22] VITALS: BP 104/61
--- NOTE | 2019-06-01 12:26 | IPNPDOC ---
Text Note Date of Service The patient was seen on 06/01/19. NOTE Subjective: Patient is confused and agitated morning, overnight he received 1 dose of Olanzapine and Ativan. Objective: NAD HEENT: PERRLA, EOMI Lungs: Mild rhonchi over right lung field CV: S1-S2 Abdomen: Nontender, nondistended Extremities: No swelling, no cyanosis Neuro: Moves all 4 limbs, follows simple command, no nuchal rigidity 84 year old male with PMH of CHF with preserved EF, atrial fibrillation with pacemaker, hypertension, on xarelto had a second episode of right sided pleural effusion. Patient was admitted for right pneumothorax and persistent right pleural effusion which is essentially unchanged. Also patient was found to have alcohol withdrawal. Acute encephalopathy/delirium Worsening today I added Seroquel We will try to minimize benzos Aspiration precaution Lorazepam o.5 mg PO PRN Opioids discontinued Frequent re orientation Right Hydropneumothorax Post procedure pneumothorax after pleural tap in 05/17/19 His chest x-ray done just before admission on 05/07/2019 shows a hydropneumothorax with small separation of the lung from the chest wall on 05/07/2019. Chest catheter was placed and chest x-ray of 05/22/2019 showed reexpansion of the lung. Chest x-ray done shows infiltrative process, which has occurred since placement of the chest tube. Pleural fluid is transudate CT scan on 27/05/19 showed increased right pleural fluid with subcutaneous emphysema. Dr. Jeffers placed the second chest tube Most likely patient will need Pleurx catheter Right recurrent pleural effusion Transudative Prior pleural effusion from AUGUST 2018 was negative for malignancy. CHF with preserved EF. Echo shows severe pulmonary hypertension, LVEF is likely normal or near normal, ejection fraction 52% Cardiology team follows him and recommended torsemide and oral targeted anticoagulation Macrocytosis Secondary to chronic alcohol use. B12 and folate wnl afib Heart rate is under control Continue Eliquis YUVAL stable Prerenal secondary to dehydration Hypernatremia sodium level 148 Secondary to dehydration. Continue IV fluid Continue to monitor BMP VS,Fishbone, I+O VS, Fishbone, I+O Laboratory Tests 06/01/19 05:27 Vital Signs Date Time Temp Pulse Resp B/P (MAP) Pulse Ox O2 Delivery O2 Flow Rate FiO2 06/01/19 11:22 97.0 88 20 104/61 (75) 96 Room Air 05/27/19 14:10 2.0 I&O- Last 24 Hours up to 6 AM 06/01/19 06:00 Intake Total 600 ml Output Total 1117 ml Balance -517 ml HEIDI CUNHA DO Jun 01, 2019 12:26
[2019-06-01] MEDS ORDERED: D5/LACTATED RINGERS 1000 ML IV ONE (13:00)
[2019-06-01 13:01] LABS: CALCIUM LEVEL 8.2 MG/DL (8.8-10.2); CREATININE FOR GFR 1.82 MG/DL (0.70-1.30); GLOMERULAR FILTRATION RATE 37.9 (>35); POTASSIUM SERUM 3.9 MEQ/L (3.5-5.1)
[2019-06-01] MEDS ORDERED: LORazepam 2 MG/ML VIAL (J2060) As Ordered ONE (14:51)
[2019-06-01 15:40] VITALS: BP 129/71
[2019-06-01 16:29] LABS: CALCIUM LEVEL 8.6 MG/DL (8.8-10.2); CREATININE FOR GFR 1.9 MG/DL (0.70-1.30); POTASSIUM SERUM 3.5 MEQ/L (3.5-5.1)
[2019-06-01 20:00] VITALS: BP 145/81
[2019-06-01 20:24] LABS: CALCIUM LEVEL 8.8 MG/DL (8.8-10.2); CREATININE FOR GFR 1.82 MG/DL (0.70-1.30); GLOMERULAR FILTRATION RATE 37.9 (>35); POTASSIUM SERUM 3.4 MEQ/L (3.5-5.1)
[2019-06-01] MEDS: ACETAMINOPHEN 500 MG TAB PO SCH (20:51)
[2019-06-01] MEDS ORDERED: traZODone 50 MG TAB PO ONE (23:00)
[2019-06-02 00:27] LABS: CALCIUM LEVEL 8.8 MG/DL (8.8-10.2); CREATININE FOR GFR 1.8 MG/DL (0.70-1.30); GLOMERULAR FILTRATION RATE 38.4 (>35); POTASSIUM SERUM 3.1 MEQ/L (3.5-5.1)
[2019-06-02 04:00] VITALS: BP 133/75
[2019-06-02 05:21] LABS: BASO # 0.1 10^3/uL (0.0-0.2); BASO % 1.2 % (0.0-1.0); EOS # 0.3 10^3/uL (0.0-0.5); EOS % 4.4 % (0.0-3.0); HEMATOCRIT 37.7 % (42.0-52.0); HEMOGLOBIN 12.2 g/dl (13.5-17.5); LYMPH # 0.7 10^3/uL (1.5-5.0); LYMPH % 10.8 % (24.0-44.0); MEAN CORPUSCULAR HEMOGLOBIN 33.8 pg (27.0-33.0); MEAN CORPUSCULAR HGB CONC 32.4 g/dl (32.0-36.5); MEAN CORPUSCULAR VOLUME 104.4 fl (80.0-96.0); MONO # 0.8 10^3/uL (0.0-0.8); MONO % 11.9 % (0.0-5.0); NEUTROPHILS # 4.7 10^3/uL (1.5-8.5); NEUTROPHILS % 70.6 % (36.0-66.0); PLATELET COUNT, AUTOMATED 212 10^3/uL (150-450); RED BLOOD COUNT 3.61 10^6/uL (4.30-6.10); WHITE BLOOD COUNT 6.7 10^3/uL (4.0-10.0)
[2019-06-02 05:39] LABS: CALCIUM LEVEL 8.8 MG/DL (8.8-10.2); CREATININE FOR GFR 1.77 MG/DL (0.70-1.30); GLOMERULAR FILTRATION RATE 39.1 (>35); POTASSIUM SERUM 3.2 MEQ/L (3.5-5.1)
[2019-06-02] MEDS: SLF 3 ML SYR IV SCH ×3 (06:36→21:13)
[2019-06-02] MEDS ORDERED: POTASSIUM CHLORIDE 10 MEQ SR TABLET PO ONE (07:30)
--- NOTE | 2019-06-02 07:36 | REP ---
Portable chest, two AP views, 07:19 a.m., single AP view with the patient semi upright: Comparison is 06/01/2019. The right thoracotomy tube is unchanged. There is no pneumothorax. The subcutaneous emphysema along the right lateral chest wall is unchanged. The subtle basilar densities identified previously have improved. Cardiac size normal. Dual chamber pacemaker, unchanged. Impression: The bibasilar densities have slightly improved. No other interval change. Electronically Signed by Neel Bell MD 06/02/2019 07:29 A
[2019-06-02 08:00] VITALS: BP 157/84
[2019-06-02] MEDS: FOLIC ACID 1 MG TAB PO SCH (09:02)
[2019-06-02] MEDS: OMEPRAZOLE 20 MG CAP PO SCH (09:02)
[2019-06-02] MEDS: bisoproloL fumarate 5 MG TAB PO SCH (09:02)
[2019-06-02] MEDS: APIXABAN 2.5 MG TAB (ELIQUIS) PO SCH ×2 (09:03→21:11)
[2019-06-02] MEDS: QUEtiapine FUMARATE 25 MG TAB PO SCH (09:03)
[2019-06-02] MEDS: amLODIPine 10 MG TAB PO SCH (09:03)
[2019-06-02] MEDS: MULTIVITAMINS/MINERALS THERAP 1 TAB PO SCH (09:04)
[2019-06-02] MEDS: D5W/LR 1,000 ML IV SCH ×2 (09:04→20:09)
--- NOTE | 2019-06-02 10:58 | IPNPDOC ---
Text Note Date of Service The patient was seen on 06/02/19. NOTE Subjective: Patient is somnolent in the morning but is able to answer the ques tions, he is not agitated. No any acute events overnight Objective: NAD HEENT: PERRLA, EOMI Lungs: Mild rhonchi over right lung field CV: S1-S2 Abdomen: Nontender, nondistended Extremities: No swelling, no cyanosis Neuro: Moves all 4 limbs, follows simple command, no nuchal rigidity 84 year old male with PMH of CHF with preserved EF, atrial fibrillation with pacemaker, hypertension, on xarelto had a second episode of right sided pleural effusion. Patient was admitted for right pneumothorax and persistent right pleural effusion which is essentially unchanged. Chest catheter was placed and chest x-ray of 05/22/2019 showed reexpansion of the lung. Also patient was found to have alcohol withdrawal. Acute encephalopathy/delirium Improved today Continue with Seroquel We will try to minimize benzos Aspiration precaution Lorazepam o.5 mg PO PRN Opioids discontinued Frequent re orientation Right Hydropneumothorax Post procedure pneumothorax after pleural tap in 05/17/19 His chest x-ray done just before admission on 05/07/2019 shows a hydropneumothorax with small separation of the lung from the chest wall on 05/07/2019. Chest catheter was placed and chest x-ray of 05/22/2019 showed ree xpansion of the lung. Chest x-ray done shows infiltrative process, which has occurred since placement of the chest tube. Pleural fluid is transudate CT scan on 27/05/19 showed increased right pleural fluid with subcutaneous emphysema. Dr. Jeffers placed the second chest tube Most likely patient will need Pleurx catheter Right recurrent pleural effusion Transudative Prior pleural effusion from AUGUST 2018 was negative for malignancy. A repeated fluid analysis is negative for malignancy CHF with preserved EF. Echo shows severe pulmonary hypertension, LVEF is likely normal or near normal, ejection fraction 52% Cardiology team follows him and recommended torsemide and oral targeted anticoagulation Macrocytosis Secondary to chronic alcohol use. B12 and folate wnl afib Heart rate is under control Continue Eliquis YUVAL stable Prerenal secondary to dehydration Hypernatremia sodium level 147 I will check aldosterone and aldosterone/renin ratio most likely secondary to dehydration Continue IV fluid Continue to monitor BMP VS,Fishbone, I+O VS, Fishbone, I+O Laboratory Tests 2/1/20 12:15 06/01/19 15:52 06/01/19 19:51 06/01/19 23:56 06/02/19 05:05 Vital Signs Date Time Temp Pulse Resp B/P (MAP) Pulse Ox O2 Delivery O2 Flow Rate FiO2 06/02/19 09:03 88 157/84 06/02/19 08:00 97.1 22 94 Room Air 05/27/19 14:10 2.0 I&O- Last 24 Hours up to 6 AM 06/02/19 06:00 Intake Total 1060 ml Output Total 610 ml Balance 450 ml HEIDI CUNHA DO Jun 02, 2019 10:58
[2019-06-02] MEDS ORDERED: LACTATED RINGER'S 1000 ML IV ONE (11:00)
[2019-06-02 11:33] LABS: CALCIUM LEVEL 9.2 MG/DL (8.8-10.2); CREATININE FOR GFR 1.83 MG/DL (0.70-1.30); GLOMERULAR FILTRATION RATE 37.6 (>35); POTASSIUM SERUM 4.6 MEQ/L (3.5-5.1)
[2019-06-02 12:00] VITALS: BP 128/57
--- NOTE | 2019-06-02 13:49 | IPN ---
DATE: 06/02/2019 Mr. Medrano is again awake, alert and sitting at the bedside and in a chair. This is vastly improved from yesterday's mental status. He is breathing well. His vital signs show a maximum temperature (Tmax) of 97.1 with a heart rate that ranges between 92 and 88 in atrial fibrillation with a respiratory rate of 18-22 without the use of accessory muscles who is 94% saturated on room air, and whose blood pressure is ranging between 133/75 to 157/84. His intake and output for the past 24 hours has been recorded as 1060 in and 530 out for a positivity of 530 mL. He has put out 180 mL from the chest tube. His weight today is 70 kg compared to 68.8 kg yesterday. On physical exam, his lungs show some bilateral rhonchi. Percussion note is full to the diaphragm. Cardiac exam is without murmurs, clicks, gallops or rubs. I cannot feel his point of maximum impulse (PMI). S1 and S2 are normal. Abdomen is soft, nontender. Bowel sounds positive. There is no hepatomegaly. No costovertebral angle (CVA) tenderness. Extremities show no pretibial edema. No calf tenderness. No differential swelling of the upper extremities. Skin is warm, dry and perfused without cyanosis or mottling, including that of the nail beds and knees. Neck is supple. There is no jugular venous distention. No subcutaneous emphysema. Trachea is midline. Mouth shows his mucous membranes to be pink and moist. Lips and commissures are without lesions. There may be some no thrush. The nursing staff is going to do mouth care to confirm that. If so, I will start him on Nystatin. Eyes show his pupils to be equal and reactive. Extraocular motion intact. Sclerae anicteric. Neuro shows II-XII intact along with gross motor and gross sensation. Gait is not tested. Psychiatric shows him to be awake and alert and interactive. His white count is 6.7 with hemoglobin and hematocrit of 12.2 and 37.7, unchanged from yesterday, with a platelet count of 212 and stable. Differential that shows 70% neutrophils, 10% lymphocytes and 11% monocytes. There are no immature forms and no toxic granulations. His sodium is 147, unchanged from yesterday with a potassium of 4.6. BUN and creatinine are 17 and 1.83, essentially unchanged from the last few days, with a glucose of 136 and a calcium of 9.2. His chest x-ray today shows his lung fully expanded to the chest wall. Costophrenic angles are sharp. Chest tube is in a good place. It is done portably. I do not have a lateral film on him. IMPRESSION: 1. Recurrent right pleural effusion, drained with a chest tube, continuing, but becoming less. 2. Dehydration, resolved. 3. Hypernatremia, stable. 4. Right heart failure, continuing. 5. Atrial fibrillation. 6. Hypertension. 7. Diastolic congestive heart failure (CHF). 8. Chronic renal disease, stable. 9. Sick sinus syndrome, status post pacemaker. 10. Peripheral vascular disease. 11. Cerebrovascular disease. 12. Past history of prostate cancer with radiation therapy. 13. History of renal stones. 14. Cirrhosis based on the appearance of his liver on his CT scan. 15. Alcohol abuse. PLAN AND DISCUSSION: I will leave his chest tube in another day. I am hoping that he over the toxic effects of his alcohol intake. I want to make sure that the output is real on the chest tube. We will have to follow him carefully to see if his pleural effusion recurs.
[2019-06-02 16:00] VITALS: BP 126/65
[2019-06-02 17:02] LABS: CALCIUM LEVEL 8.8 MG/DL (8.8-10.2); CREATININE FOR GFR 1.84 MG/DL (0.70-1.30); GLOMERULAR FILTRATION RATE 37.4 (>35); POTASSIUM SERUM 4.3 MEQ/L (3.5-5.1)
[2019-06-02 20:00] VITALS: BP 120/65
[2019-06-02 21:00] LABS: CALCIUM LEVEL 8.5 MG/DL (8.8-10.2); CREATININE FOR GFR 1.99 MG/DL (0.70-1.30); GLOMERULAR FILTRATION RATE 34.2 (>35); POTASSIUM SERUM 4.3 MEQ/L (3.5-5.1)
[2019-06-02] MEDS: traZODone 50 MG TAB PO SCH (21:11)
[2019-06-02] MEDS: ACETAMINOPHEN 500 MG TAB PO SCH (21:12)
[2019-06-03] VITALS: BP 105/59
[2019-06-03 04:00] VITALS: BP 129/73
[2019-06-03 05:41] LABS: BASO # 0.1 10^3/uL (0.0-0.2); BASO % 0.5 % (0.0-1.0); EOS # 0.2 10^3/uL (0.0-0.5); EOS % 1.7 % (0.0-3.0); HEMATOCRIT 38.7 % (42.0-52.0); HEMOGLOBIN 12.2 g/dl (13.5-17.5); LYMPH # 0.7 10^3/uL (1.5-5.0); LYMPH % 6.8 % (24.0-44.0); MEAN CORPUSCULAR HEMOGLOBIN 33.4 pg (27.0-33.0); MEAN CORPUSCULAR HGB CONC 31.5 g/dl (32.0-36.5); MONO # 0.8 10^3/uL (0.0-0.8); MONO % 8.6 % (0.0-5.0); NEUTROPHILS # 7.8 10^3/uL (1.5-8.5); NEUTROPHILS % 81.7 % (36.0-66.0); PLATELET COUNT, AUTOMATED 244 10^3/uL (150-450); RED BLOOD COUNT 3.65 10^6/uL (4.30-6.10); WHITE BLOOD COUNT 9.5 10^3/uL (4.0-10.0)
[2019-06-03 06:06] LABS: CALCIUM LEVEL 8.3 MG/DL (8.8-10.2); CREATININE FOR GFR 1.87 MG/DL (0.70-1.30); GLOMERULAR FILTRATION RATE 36.7 (>35); POTASSIUM SERUM 3.9 MEQ/L (3.5-5.1)
[2019-06-03] MEDS: SLF 3 ML SYR IV SCH ×3 (06:06→22:07)
--- NOTE | 2019-06-03 07:40 | REP ---
No chest, 07:17 a.m., to AP upright views: Comparison is 06/02/2019. The the right thoracotomy tube is unchanged. The subcutaneous emphysema right lateral chest wall has decreased. The previous density inferiorly in the right lung has increased in density. The subtle density inferiorly in the left lung is unchanged. Cardiac size is normal. The naye, mediastinum, skeletal structures are unremarkable. The dual chamber pacemaker is unchanged. Impression: The subtle density inferiorly in the right lung has increased in density. Electronically Signed by Neel Bell MD 06/03/2019 07:32 A
[2019-06-03 08:00] VITALS: BP 105/59
[2019-06-03] MEDS: D5W/LR 1,000 ML IV SCH ×2 (08:22→17:18)
[2019-06-03] MEDS: APIXABAN 2.5 MG TAB (ELIQUIS) PO SCH ×2 (08:22→21:43)
[2019-06-03] MEDS: MULTIVITAMINS/MINERALS THERAP 1 TAB PO SCH (08:23)
[2019-06-03] MEDS: amLODIPine 10 MG TAB PO SCH (08:24)
[2019-06-03] MEDS: FOLIC ACID 1 MG TAB PO SCH (08:24)
[2019-06-03] MEDS: TORSEMIDE 20 MG TAB PO SCH (08:25)
[2019-06-03] MEDS: bisoproloL fumarate 5 MG TAB PO SCH (08:25)
[2019-06-03] MEDS: QUEtiapine FUMARATE 25 MG TAB PO SCH (08:25)
[2019-06-03] MEDS: OMEPRAZOLE 20 MG CAP PO SCH (08:25)
[2019-06-03] MEDS: THIAMINE 100 MG TAB PO SCH (09:00)
--- NOTE | 2019-06-03 11:05 | IPN ---
DATE: 06/03/2019 Speech therapist at the bedside evaluating patient's dysphagia. He appears to have increased appetite and ate most of his food this morning without any choking sensation or signs of aspiration. Patient complains of 4/10 pain at the chest tube site. Does not want any pain medications at the moment. Output through the chest tube site overnight was 110 mL. Thoracic surgeon, Dr. Jeffers managing chest tube drainage. Patient denies any shortness of breath. States that he is breathing well. No fever or chills. No cough. No nausea or vomiting. Tolerating his diet pretty well. Vitals: Temperature 97.3, pulse 101, respiratory rate 18, blood pressure 129/73, 92% on room air. Right-sided chest tube in place. No jugular venous distention (JVD). No thyromegaly. Slight coarse breath sounds in the right. Otherwise left is clear. Heart: S1, S2. Sinus rhythm. No murmurs or rubs. Abdomen: Soft, nontender, nondistended. Positive bowel sounds times four quadrants. Extremities: No cyanosis or clubbing. Chest x-ray 06/03/2019: Subtle density inferiorly. Right lung is increased in density. Subcutaneous emphysema right lateral chest wall is decreased. Right thoracostomy tube unchanged. Cardiac size is normal. Conchis, mediastinum and skeletal structures are unremarkable. Dual chamber pacer is unchanged. ASSESSMENT/PLAN: This is an 84-year-old DO NOT RESUSCITATE, trial of intubation patient admitted on 05/20/2019 with history of atrial fibrillation on chronic Xarelto, congestive heart failure (CHF), recurrent pleural effusion, chronic kidney disease (CKD), stage III to IV, baseline creatinine 1.66, sick sinus syndrome with pacer, peripheral arterial disease, coronary artery disease (CAD), prostate carcinoma (CA) with radiotherapy, renal stones, cerebrovascular disease, carotid artery disease presented to the emergency room with shortness of breath developed alcohol withdrawal syndrome during the admission. The patient underwent thoracentesis with subsequent pneumothorax. ACUTE ISSUES: 1. Acute alcohol withdrawal with sitter at the bedside on Seroquel trying to minimize benzodiazepines and Ativan as needed. 2. Right-sided hydropneumothorax managed by Dr. Jeffers of thoracic surgery. Repeat chest x-ray is unchanged this morning. Right recurrent pleural effusion negative for malignancy. Transudative most likely due to congestive heart failure. 3. Congestive heart failure (CHF) with preserved ejection fraction, EF of 52% currently on Torsemide and anticoagulation managed by Dr. Vee. 4. Hypertension: On Norvasc. 5. Alcohol withdrawal on Ativan. Sitter at the bedside. 6. Atrial fibrillation with sick sinus, status post pacer and Cardizem CD 240 twice a day. 7. Chronic alcohol abuse on folic acid, thiamine and multivitamin. MTDD
--- NOTE | 2019-06-03 13:48 | IPN ---
DATE: 06/03/2019 Mr. Medrano is again awake and alert today. He is wondering when he can go home and that won't be for at least another 4-5 days. He is draining minimally from his chest tube and I will remove it. His vital signs show a T-max of 99.0 with a heart rate that ranges between 72 and 104 in atrial fibrillation with a respiratory rate of 18-20 without the use of accessory muscles who is 93-96% saturated on room air, and whose blood pressure is ranging between 105/59 to 129/73. His intake and output the past 24 hours has been recorded as only 300 in and 435 out for a negativity of 135 mL. He has put out 110 mL from the chest tube and there is no air leak. Weight today is 71.4 kg compared to 70 kg yesterday. On physical exam, his lungs show equal breath sounds on either side with scattered coarse rhonchi. Percussion note is full to the diaphragm. Cardiac exam is without murmurs, clicks, gallops or rubs. I cannot feel his point of maximum impulse (PMI). S1 and S2 are normal. Abdomen is soft, nontender. Bowel sounds positive. There is no hepatomegaly. No costovertebral angle (CVA) tenderness. Extremities show trace pretibial edema. No calf tenderness. No differential swelling of the upper extremities. Skin is warm, dry and perfused without cyanosis or mottling, including that of the nail beds and knees. Neck is supple. There is no jugular venous distention. No subcutaneous emphysema. Trachea is midline. Mouth shows his mucous membranes to be pink and moist. Lips and commissures are without lesions. There may be some no thrush. Eyes show his pupils to be equal and reactive. Extraocular motion intact. Sclerae nonicteric. Neuro shows II-XII intact along with gross motor and gross sensation. Gait is not tested. Psychiatric shows him to be awake and alert and able to hold a conversation. His white count today is 9.5 with a hemoglobin and hematocrit of 12.2 and 38.7, respectively, unchanged from yesterday, with a platelet count of 244. Differential shows 81% neutrophils, 6% lymphocytes and 8% monocytes. There are no immature forms and no toxic granulations. His chemistries show sodium that is up to 148, with a BUN and creatinine of 17 and 1.87, essentially unchanged from his baseline. Calcium is 8.3. His chest x-ray today shows his lung fully expanded to the chest wall. Costophrenic angles are sharp. He still has an infiltrative process in the right lower lobe, probably secondary to aspiration. He has now gone 48 hours with a period of lucency without return to his delirium tremens (DT). There is no lateral chest x-ray as it is done portably. IMPRESSION: 1. Recurrent right pleural effusion, drained with a chest tube, now resolved. 2. Dehydration, resolved. 3. Hypernatremia, continuing. 4. Right heart failure, continuing. 5. Atrial fibrillation. 6. Hypertension. 7. Diastolic congestive heart failure (CHF). 8. Chronic renal disease, stable. 9. Sick sinus syndrome, status post pacemaker. 10. Peripheral vascular disease. 11. Cerebrovascular disease. 12. Past history of prostate cancer with radiation therapy. 13. History of renal stones. 14. Cirrhosis based on the appearance of his liver on his CT scan. 15. Alcohol abuse. PLAN AND DISCUSSION: I will remove his chest tube today. We will follow his chest x-ray the next couple of days. Hopefully, the effusion will not come back. He is being worked up for his hyperkalemia.
[2019-06-03 13:54] LABS: CALCIUM LEVEL 8.1 MG/DL (8.8-10.2); CREATININE FOR GFR 1.88 MG/DL (0.70-1.30); GLOMERULAR FILTRATION RATE 36.5 (>35)
[2019-06-03] MEDS: LORazepam 2 MG/ML VIAL (J2060) IV PRN (15:11)
[2019-06-03 16:00] VITALS: BP 105/59
[2019-06-03] MEDS ORDERED: LORazepam 2 MG/ML VIAL (J2060) IV STA (16:22)
[2019-06-03 19:44] LABS: CALCIUM LEVEL 8.5 MG/DL (8.8-10.2); CREATININE FOR GFR 1.81 MG/DL (0.70-1.30); GLOMERULAR FILTRATION RATE 38.1 (>35); POTASSIUM SERUM 3.8 MEQ/L (3.5-5.1)
[2019-06-03 20:00] VITALS: BP 128/69
[2019-06-03] MEDS: traZODone 50 MG TAB PO SCH (21:43)
[2019-06-03] MEDS: ACETAMINOPHEN 500 MG TAB PO SCH (21:43)
[2019-06-03 22:39] LABS: CREATININE FOR GFR 1.85 MG/DL (0.70-1.30); GLOMERULAR FILTRATION RATE 37.2 (>35); POTASSIUM SERUM 3.9 MEQ/L (3.5-5.1)
[2019-06-04] VITALS: BP 148/73
[2019-06-04 01:47] LABS: CREATININE FOR GFR 1.85 MG/DL (0.70-1.30); GLOMERULAR FILTRATION RATE 37.2 (>35); POTASSIUM SERUM 3.6 MEQ/L (3.5-5.1)
[2019-06-04 04:00] VITALS: BP 140/86
[2019-06-04] MEDS: SLF 3 ML SYR IV SCH ×3 (04:15→21:09)
[2019-06-04] MEDS: D5W/LR 1,000 ML IV SCH ×3 (04:15→21:21)
[2019-06-04 05:53] LABS: BASO # 0.1 10^3/uL (0.0-0.2); BASO % 0.8 % (0.0-1.0); EOS # 0.2 10^3/uL (0.0-0.5); EOS % 2.6 % (0.0-3.0); HEMATOCRIT 40.1 % (42.0-52.0); HEMOGLOBIN 12.4 g/dl (13.5-17.5); LYMPH # 0.7 10^3/uL (1.5-5.0); LYMPH % 8.9 % (24.0-44.0); MEAN CORPUSCULAR HEMOGLOBIN 32.5 pg (27.0-33.0); MEAN CORPUSCULAR HGB CONC 30.9 g/dl (32.0-36.5); MEAN CORPUSCULAR VOLUME 105.2 fl (80.0-96.0); MONO # 0.9 10^3/uL (0.0-0.8); MONO % 11.8 % (0.0-5.0); NEUTROPHILS # 5.5 10^3/uL (1.5-8.5); NEUTROPHILS % 75.2 % (36.0-66.0); PLATELET COUNT, AUTOMATED 220 10^3/uL (150-450); RED BLOOD COUNT 3.81 10^6/uL (4.30-6.10); WHITE BLOOD COUNT 7.3 10^3/uL (4.0-10.0)
[2019-06-04 06:14] LABS: CALCIUM LEVEL 8.2 MG/DL (8.8-10.2); CREATININE FOR GFR 1.76 MG/DL (0.70-1.30); GLOMERULAR FILTRATION RATE 39.4 (>35); POTASSIUM SERUM 3.7 MEQ/L (3.5-5.1)
[2019-06-04 08:00] VITALS: BP 121/62
--- NOTE | 2019-06-04 08:13 | IPN ---
DATE OF SERVICE: 06/04/2019 The patient became aggressive and restless yesterday with sitting staff and was given Ativan 0.5 mg without any improvement. Mitts were placed, sitter was continued and the patient was given Ativan 1 mg intravenously. This morning, the patient has no recollection of his agitation, restlessness and combativeness yesterday. He has mitts this morning, could not recall why he had them. According to the sitter at the bedside, the patient was coughing starting at 4 o'clock this morning. He has been much more cooperative however. No fever or chills. Family meeting today at 4 o'clock regarding patient's overall prognosis. Temperature 96.7, pulse 92, respiratory rate 18, blood pressure 140/86, 100% on room air. Generally, the patient is awake, alert and oriented to person only, disoriented to place and year. He is answering questions appropriately. Slightly hard of hearing. No jugular venous distention (JVD). No thyromegaly. No cervical lymphadenopathy. Dry mucous membranes. Trachea is midline. Lungs: Diminished breath sounds with rhonchi. Heart: S1, S2. Sinus rhythm. Abdomen soft, nontender, nondistended. Positive bowel sounds. Extremities: Trace edema. LABORATORY DATA: White count 7.3, hemoglobin 12, hematocrit 40, and platelet count 220. Sodium 145, potassium 3.7, chloride 107, bicarbonate 32, BUN 15, creatinine 1.76, glucose 126. MICROBIOLOGY: Pleural fluid pending, gram stain 05/27, no growth aerobically. Body fluid 05/27 no growth. Pathology no malignancy. Hemorrhagic fluid. ASSESSMENT AND PLAN: This is an 84-year-old, DO NOT RESUSCITATE (DNR), trial of intubation, admitted on 05/20/2019 with history of atrial fibrillation on chronic Xarelto, congestive heart failure (CHF) with recurrent pleural effusions, chronic kidney disease (CKD) Stage 3-4, baseline creatinine 1.66, sick sinus syndrome with pacer, peripheral arterial disease, coronary artery disease (CAD), prostate carcinoma (CA) with radiotherapy, renal stones, cerebrovascular disease, carotid artery disease who presented to the emergency room with shortness of breath and was found to have pleural effusion requiring chest tube placement and developed acute encephalopathy secondary to alcohol withdrawal syndrome during the hospital stay. The patient underwent a thoracentesis with subsequent pneumothorax. ACUTE ISSUES: 1. Acute alcohol withdrawal, currently on Ativan as needed, benzodiazepine, and Seroquel. Sitter was necessary due to increased combativeness yesterday. 2. Acute encephalopathy secondary to alcohol withdrawal and hydropneumothoax. Rule out infection. Will check urinalysis (UA) and urine culture and sensitivity. Recheck chest x-ray. 2. Right-sided hydropneumothorax status post chest tube. Appears to be transudative. Negative for malignancy. 3. Congestive heart failure (CHF) with preserved ejection fraction, EF of 52%, compensated currently on torsemide and anticoagulation, managed by Dr. Vee. 4. Hypertension. On chronic Norvasc. 5. Alcohol withdrawal. On Ativan. Minimize benzodiazepine as much as possible. Sitter required at the bedside as the patient became combative yesterday. 6. Atrial fibrillation with sick sinus syndrome with pacer. On Cardizem CD 240 twice a day. Appears to be rate controlled. 7. Chronic alcohol abuse. On folic acid, thiamine and multivitamin. MTDD
--- NOTE | 2019-06-04 08:17 | REP ---
Chest x-ray: Two views. History: Cough and shortness of breath. Comparison chest x-ray: June 03, 2019. Findings: The right chest tube has been removed in the interval since yesterday's radiograph. There is a tiny sliver of pleural air at the right apex which appears to be unchanged. There is slight blunting or pleural thickening at the right lateral pleural angle. Some discoid atelectasis and/or infiltrate persists at the right base. No new infiltrate on the left. Cardiomegaly with pacemaker again seen. Impression: Right chest tube removed. Tiny right apical pneumothorax unchanged. Cardiomegaly with pacemaker. Increased density right base unchanged. Electronically Signed by Hollis Weems MD 06/04/2019 08:08 A
--- NOTE | 2019-06-04 08:31 | IPN ---
DATE: 06/04/2019 Mr. Medrano is quite oriented this morning. He denies any symptoms but admits that he has not really done anything yet, so he cannot comment on dyspnea with activity. He has eaten his breakfast this morning and seems to be doing quite well. Unfortunately last night again he was quite agitated and combative and received a single dose of benzodiazepines in the evening hours. Vital signs: Blood pressure 140/86, heart rate has been in 80s and 90s with atrial fibrillation. He is afebrile. Saturation is 100% on room air. Fluid balance was recorded about 1725 positive yesterday. Weight is 71.7 kg. He is alert and oriented times one. I do not appreciate any distinct jugular venous pulse (JVP) elevation. Lungs reveal mild crackers mostly over the left base. There are slightly diminished sounds on the right base but I do not appreciate evidence for a large pleural effusion. No wheezing. Heart exam reveals irregularly irregular rhythm. The murmur is unchanged. Abdomen is soft. There is no peripheral edema. Neurologically he has marginal orientation but I do not appreciate any focal weakness. LABORATORY: Hemoglobin 12.4, hematocrit 40.1 and platelet count 220,000. Basic metabolic panel: Sodium 145, potassium 3.7, BUN 15, creatinine 1.9 glucose 126 Mr. Medrano is an 84-year-old man who was admitted after he had complication of the thoracentesis with small but enlarging pneumothorax. He had a chest tube placed for prolonged period of time and drained substantial amount of fluids. Even though the conclusion from the fluid analysis is marginal between exudate and transudate, I do agree that transudative effusion most likely as a consequence of congestive heart failure is clinically more likely. The clinical course was markedly complicated by significant alteration of mental status that was almost certainly a consequence of alcohol withdrawal. This is something that was unknown. It is also possible that the patient has underlying liver cirrhosis, even though we do not have any definite tissue proof of it. Currently, he seems to be doing quite well from the perspective of heart failure. He was restarted on diuretics and even though the creatinine is elevated. He did not worsen. At this point, I am hoping that if the alcoholism stops that there will be some benefit and we will see some improvement but in principal congestive heart failure that is diastolic in nature and associated with valvular heart disease with concomitant renal failure does not have any ultimate cure and I foresee that this problem will be ongoing. But as far as life expectancy is concerned, this can be highly variable. I believe that the patient would benefit from some form of rehabilitation or possibly even a institutionalization. I am mostly afraid that if he returns home that he will start drinking again. I did not make any medication changes today seems to be on appropriate medications even though, from my perspective, I do not like the combination of two different calcium channel blockers. But he seems to be tolerating that fine and I do not have any reasons to change that.
[2019-06-04] MEDS: QUEtiapine FUMARATE 25 MG TAB PO SCH (08:53)
[2019-06-04] MEDS: TORSEMIDE 20 MG TAB PO SCH (08:53)
[2019-06-04] MEDS: bisoproloL fumarate 5 MG TAB PO SCH (08:53)
[2019-06-04] MEDS: amLODIPine 10 MG TAB PO SCH (08:54)
[2019-06-04] MEDS: MULTIVITAMINS/MINERALS THERAP 1 TAB PO SCH (08:54)
[2019-06-04] MEDS: OMEPRAZOLE 20 MG CAP PO SCH (08:54)
[2019-06-04] MEDS: FOLIC ACID 1 MG TAB PO SCH (08:54)
[2019-06-04] MEDS: APIXABAN 2.5 MG TAB (ELIQUIS) PO SCH ×2 (08:54→21:08)
[2019-06-04] MEDS: THIAMINE 100 MG TAB PO SCH (08:54)
--- NOTE | 2019-06-04 12:17 | IPN ---
DATE: 06/04/2019 Mr. Medrano evidently had some difficulty last night and needed some more Ativan after he became confused and aggressive. This morning, however, on seeing him he is awake and fairly alert. His vital signs show a T-max of 97.0 with a heart rate that ranges between 94 and 104 in atrial fibrillation with a respiratory rate of 18 to 17 without the use of accessory muscles who is 100% saturated on room air and whose blood pressure is ranging between 148/73 to 121/62. His intake and output the past 24 hours has been recorded as 2560 in and 835 out for a positivity of 1725 mL. His chest tube was removed yesterday. He weighs 71.7 kg today compared to 71.4 kg yesterday. On physical exam, his lungs show bilateral rhonchi during inspiration and expiration. Percussion note is full to the diaphragm. Cardiac exam shows an irregular rate and rhythm, without murmurs, clicks, gallops or rubs. I cannot feel his point of maximum impulse (PMI). S1 and S2 are normal. Abdomen is soft, nontender. Bowel sounds are positive. There is no hepatomegaly. No costovertebral angle (CVA) tenderness. Extremities show no pretibial edema. No calf tenderness. No differential swelling of the upper extremities. Skin is warm, dry and perfused without cyanosis or mottling, including that of the nail beds and knees. Neck is supple. There is no jugular venous distention. No subcutaneous emphysema. Trachea is midline. Mouth shows his mucous membranes to be pink and moist. Lips and commissures are without lesions. There is no thrush. Eyes show his pupils to be equal and reactive. Extraocular motion intact. Sclerae nonicteric. Neuro shows II-XII intact along with gross motor and gross sensation. Gait is not tested. Psychiatric shows him to be awake and alert and able to have a conversation. His white count today is 7.3 with a hemoglobin and hematocrit of 12.4 and 40.1, slightly up from yesterday of 12.2 and 38.7. Platelet count is 220. Differential shows 75% neutrophils, 8% lymphocytes and 11% monocytes. There are no immature forms and no toxic granulations. His electrolytes are normal with a BUN and creatinine of 15 and 1.76, which is unchanged, with a glucose of 126 and a calcium of 8.2. His chest x-ray today shows a sharp right sided costophrenic angle. There is no evidence that pleural fluid has returned. It is done PA and lateral today. There is some slight pleural fluid posteriorly on the lateral film. There is also some fluid in the major fissure. Nonetheless, the right costophrenic angle is sharp and there is a small apical air space where he probably sucked air in after removing the chest tube. IMPRESSION: 1. Recurrent right pleural effusion, drained with a chest tube, now resolved and so far not returning. 2. Hypernatremia, resolved. 3. Right heart failure, continuing. 4. Atrial fibrillation. 5. Hypertension. 6. Diastolic congestive heart failure (CHF). 7. Chronic renal disease, stable. 8. Sick sinus syndrome, status post pacemaker. 9. Peripheral vascular disease. 10. Cerebrovascular disease. 11. Past history of prostate cancer with radiation therapy. 12. History of renal stones. 13. Cirrhosis based on the appearance of his liver on CT scan. 14. Alcohol abuse and alcohol withdrawal. PLAN AND DISCUSSION: As far as his pleural effusion is concerned, will follow his chest x-rays over the next few days. If it does not return, I will not be compelled to place a PleurX catheter. If it does return, I will consider placing a PleurX catheter because of his right heart failure.
[2019-06-04 14:00] VITALS: BP 108/66
[2019-06-04 20:00] VITALS: BP 134/78
[2019-06-04] MEDS: traZODone 50 MG TAB PO SCH (21:08)
[2019-06-04] MEDS: ACETAMINOPHEN 500 MG TAB PO SCH (21:08)
[2019-06-05] MEDS: D5W/LR 1,000 ML IV SCH (01:17)
[2019-06-05 04:00] VITALS: BP 119/78
[2019-06-05 06:04] LABS: BASO # 0.1 10^3/uL (0.0-0.2); BASO % 0.7 % (0.0-1.0); EOS # 0.2 10^3/uL (0.0-0.5); EOS % 1.9 % (0.0-3.0); HEMATOCRIT 36.6 % (42.0-52.0); HEMOGLOBIN 11.6 g/dl (13.5-17.5); LYMPH # 0.8 10^3/uL (1.5-5.0); LYMPH % 9.7 % (24.0-44.0); MEAN CORPUSCULAR HEMOGLOBIN 33.1 pg (27.0-33.0); MEAN CORPUSCULAR HGB CONC 31.7 g/dl (32.0-36.5); MEAN CORPUSCULAR VOLUME 104.6 fl (80.0-96.0); MONO # 0.9 10^3/uL (0.0-0.8); MONO % 10.9 % (0.0-5.0); NEUTROPHILS # 6.3 10^3/uL (1.5-8.5); NEUTROPHILS % 75.8 % (36.0-66.0); PLATELET COUNT, AUTOMATED 224 10^3/uL (150-450); WHITE BLOOD COUNT 8.4 10^3/uL (4.0-10.0)
[2019-06-05] MEDS: SLF 3 ML SYR IV SCH ×3 (06:07→22:54)
[2019-06-05 06:25] LABS: CALCIUM LEVEL 7.9 MG/DL (8.8-10.2); CREATININE FOR GFR 1.82 MG/DL (0.70-1.30); GLOMERULAR FILTRATION RATE 37.9 (>35); POTASSIUM SERUM 3.5 MEQ/L (3.5-5.1)
--- NOTE | 2019-06-05 07:33 | REP ---
Portable chest, 07:02 a.m., single AP view with the patient semi upright: Comparison is 06/04/2019. The tiny right apical pneumothorax identified on the comparison study is not identified with certainty on the study today. Effacement right costophrenic angle is unchanged suggestive of a right pleural effusion. The infiltrate inferiorly in the right lung is unchanged. Left lung remains clear. There is cardiomegaly and dual chamber pacemaker, unchanged. Impression: The tiny right apical pneumothorax identified previously is not identified with certainty today. Otherwise, no interval change. Electronically Signed by Neel Bell MD 06/05/2019 07:25 A
--- NOTE | 2019-06-05 08:36 | IPN ---
DATE: 06/05/2019 According to the sitter at the bedside, patient is much improved. He is cooperative. He has not been agitated or restless overnight. He is currently awake much more conversant. He says that he is interested in going back home. He understands that drinking alcohol will cause more problems in the future and says that I do not drink a lot, I drink everyday but I am not an alcoholic. He currently still complains of a slightly productive cough with white sputum. No fevers or chills. No nausea or vomiting. He currently has a pureed diet due to risk of aspiration. Currently on Torsemide with output of 1 liter yesterday but has been positive balance for the past 3 days. He denies any paroxysmal dyspnea. He is still requiring a two person assistance with getting up and ambulating. PHYSICAL EXAMINATION: Temperature 96.9, pulse 88, respiratory rate 18, blood pressure 119/78, 94% on room air. Generally the patient is awake, alert and oriented to person only. He does not know the date or the name of the hospital. He is cooperative, no JVD and no thyromegaly. Dry mucous membranes. No cervical lymphadenopathy. Speaks in full sentences Rhonchus breath sounds at the right base, otherwise clear in the upper lobes bilaterally. Air entry is diminished on the right. Heart S1, S2, irregularly irregular and tachycardiac. Abdomen is soft and nontender and nondistended. Positive bowel sounds in four quadrants. No rebound or guarding. No hepatosplenomegaly. There is no abdominal bruit. Extremity no pitting edema. LAB DATA: White count 8.4, hemoglobin 11.6, hematocrit 36.6, platelet count 224, sodium 142, potassium 3.5, chloride 106, bicarbonate 31, BUN 16, creatinine 122, glucose 123, pleural fluid gram stain no growth anaerobically, no organisms seen. Body fluid 127 no growth aerobically. Repeat chest x-ray 06/04/2019 right chest tube removed. Tiny right apical pneumothorax unchanged cardiomegaly with pacemaker. Increased density at the right base, unchanged. 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 He did undergo thoracentesis with subsequent pneumothorax requiring chest tube placement. 1. Acute alcohol withdrawal, doing much better. Ativan has been discontinued. He is still on Seroquel and trazodone with improved mentation according to sitter much more cooperative. He is still disoriented but much improved from yesterday. No resting tremors. No agitation. Patient is still on multivitamin, thiamine and folate. Sitter still required. EOA was negative. Repeat chest x-ray is unchanged. 2. Right sided hydropneumothorax status-post chest tube, pleural effusion appears to be negative for malignancy transudative might be secondary to heart failure. Managed by thoracic surgery. The patient's chest x-ray is unchanged with slight subcutaneous emphysema. However most of the subcutaneous emphysema was no new infiltrate on the left and atelectasis at the right base. 3. Congestive heart failure with preserved ejection fraction with preserved systolic ejection fraction currently on Torsemide, still positive balance for the past [address] Vee. 4. Hypertension on Norvasc. Atrial fibrillation with sick sinus syndrome and pacer on Cardizem twice a day, currently with tachycardia, deferred to cardiology for adjustment in medications. Chronic alcohol abuse with withdrawal and folic acid, thiamine, multivitamin. DISPOSITION: I will await improvement in patient's encephalopathy secondary to alcohol abuse and her current pleural effusions with pneumothorax. ARU has been consulted. Patient is still requiring a sitter but may not need this throughout the day today. No acute infectious process with negative UA. Chest x-ray was unchanged and afebrile with no white count. MTDD
[2019-06-05] MEDS: bisoproloL fumarate 5 MG TAB PO SCH (09:00)
[2019-06-05] MEDS: FOLIC ACID 1 MG TAB PO SCH (09:32)
[2019-06-05] MEDS: THIAMINE 100 MG TAB PO SCH (09:32)
[2019-06-05] MEDS: QUEtiapine FUMARATE 25 MG TAB PO SCH (09:32)
[2019-06-05] MEDS: APIXABAN 2.5 MG TAB (ELIQUIS) PO SCH ×2 (09:32→20:23)
[2019-06-05] MEDS: amLODIPine 10 MG TAB PO SCH (09:32)
[2019-06-05] MEDS: OMEPRAZOLE 20 MG CAP PO SCH (09:32)
[2019-06-05] MEDS: MULTIVITAMINS/MINERALS THERAP 1 TAB PO SCH (09:33)
[2019-06-05] MEDS: TORSEMIDE 20 MG TAB PO SCH (09:33)
--- NOTE | 2019-06-05 09:55 | IPN ---
DATE: 06/05/2019 Mr. Medrano is sitting up alert, awake in a chair. Nursing staff says that he did very well last night. Chest x-ray does not show any return of the pleural fluid. His vital signs show a maximum temperature (t-max) of 98.3 with a heart rate that ranges between 88 and 101 in atrial fibrillation with a respiratory rate of 17 to 18 without the use of accessory muscles, who is 94% saturated on room air. Blood pressure is ranging between 134/78 to 108/66. His intake and output over the past 24 hours has been recorded as 1460 in and 1050 out for a positivity of 410 mL. He weighed 71 kg today compared to 71.7 kg yesterday. PHYSICAL EXAMINATION: LUNGS: He has some faint basilar rales at the right base. Otherwise, his lungs show normal vesicular sounds. Percussion note is full to the diaphragm. CARDIAC EXAM: Without murmurs, clicks, gallops or rubs. I cannot feel his point of maximum impulse (PMI). S1, S2 are normal. Regular rate and rhythm. ABDOMEN: Soft, nontender. Bowel sounds positive. There is no hepatomegaly. No costovertebral angle tenderness. EXTREMITIES: Show no pretibial edema. No calf tenderness. No differential swelling of the upper extremities. SKIN: Warm, dry and perfused without cyanosis or mottling, including that of the nail beds and knees. NECK: Supple. There is no jugular venous distention. No subcutaneous emphysema. Trachea is midline. MOUTH: Shows his mucous membranes to be pink and moist. Lips and commissures without lesions. There is no thrush. EYES: Show his pupils to be equal and reactive. Extraocular motion intact. Sclerae anicteric. NEUROLOGIC: Shows II through XII intact with gross motor and gross sensation intact. Gait is not tested. PSYCHIATRIC: Shows him to be awake and alert. LABORATORY DATA: His white count today is 8.4 with a hemoglobin and hematocrit of 11.6 and 36.6, respectively, and a platelet count of 224. Differential shows 74% neutrophils, 9% lymphocytes, 10% monocytes. There are no immature forms and no toxic granulations. Electrolytes are normal with a BUN and creatinine of 60 and 1.82, glucose of 123, calcium 7.9. His chest x-ray today shows the lung fully expanded to the chest wall. Costophrenic angle is sharp. There are some atelectatic changes in the right costophrenic angle. The study is done portably. There is no lateral film. IMPRESSION: 1. Recurrent right pleural effusion, drained with a chest tube, now resolved and not returning. 2. Hyponatremia, resolved. 3. Right heart failure, continuing. 4. Atrial fibrillation. 5. Hypertension. 6. Diastolic heart failure. 7. Chronic renal disease, stable. 8. Sick sinus syndrome, status post pacemaker. 9. Peripheral vascular disease. 10. Cerebral vascular disease. 11. Past history of prostate cancer with radiation therapy. 12. History of renal stones. 13. Cirrhosis based on appearance of his liver on CT. 14. Alcohol abuse and alcohol withdrawal. PLAN/DISCUSSION: His chest tube has now been out 2 days and his pleural effusion is not returning. He is improving. I am therefore going to withdraw from the case and will be available as needed. I would take a chest x-ray every 3 days so long as he is in the hospital and do a PA and lateral. If fluid does return, you can then reconsult me and I will consider placing a PleurX catheter.
[2019-06-05 12:00] VITALS: BP 98/65
[2019-06-05 14:30] VITALS: BP 115/63
[2019-06-05] MEDS: ACETAMINOPHEN 500 MG TAB PO SCH (20:25)
[2019-06-05] MEDS: traZODone 50 MG TAB PO SCH (20:27)
[2019-06-05] MEDS ORDERED: OLANZapine INTRAMUSCULAR 10 MG VIAL (S0166) IM PRN (22:30)
[2019-06-05] MEDS ORDERED: OLANZapine INTRAMUSCULAR 10 MG VIAL (S0166) IM ONE (22:30)
[2019-06-05 22:45] VITALS: BP 78/42
[2019-06-05] MEDS ORDERED: NS 1,000 ML IV SCH (22:45)
--- NOTE | 2019-06-05 22:45 | IPNPDOC ---
Text Note Date of Service The patient was seen on 06/05/19. NOTE TIME OF SERVICE 1030PM Code 25 was called bc the patient was agitated, striking and trying to choke staff. According to his son the patient doesnt' have a formal diagnosis of dementia and was independently performing his ADLS & IADLs before this admission. Currently the patient is not aware of the building that he is in but calmed down once additional staff arrived. T 98.4 /HR 113 / 95%/ 78/42 / RR18 #[facility] Delerium ? Plan: olanzapine IM PRN agitation/ the patient's son will come to the hospital to help us reorient him / f/u Vitamin B1 to r/o Wernike's encephalopathy #Hypotension with Tachycardia Possibly due to dehydration Plan: IVF / f/u UA and WBC VS,Fishbone, I+O VS, Fishbone, I+O Laboratory Tests 06/05/19 05:50 Vital Signs Date Time Temp Pulse Resp B/P (MAP) Pulse Ox O2 Delivery O2 Flow Rate FiO2 06/05/19 20:27 91 102/60 06/05/19 14:30 96.9 17 96 Room Air I&O- Last 24 Hours up to 6 AM 06/05/19 06:00 Intake Total 1680 ml Output Total 1425 ml Balance 255 ml AMANDA CINTRON MD Jun 05, 2019 22:45
[2019-06-05 23:14] LABS: BASO # 0.1 10^3/uL (0.0-0.2); BASO % 0.7 % (0.0-1.0); EOS # 0.1 10^3/uL (0.0-0.5); EOS % 1.2 % (0.0-3.0); HEMATOCRIT 35.8 % (42.0-52.0); HEMOGLOBIN 11.6 g/dl (13.5-17.5); LYMPH # 1.1 10^3/uL (1.5-5.0); LYMPH % 10.3 % (24.0-44.0); MEAN CORPUSCULAR HEMOGLOBIN 33.5 pg (27.0-33.0); MEAN CORPUSCULAR HGB CONC 32.4 g/dl (32.0-36.5); MEAN CORPUSCULAR VOLUME 103.5 fl (80.0-96.0); MONO # 1.3 10^3/uL (0.0-0.8); MONO % 12.4 % (0.0-5.0); NEUTROPHILS # 7.6 10^3/uL (1.5-8.5); NEUTROPHILS % 74.6 % (36.0-66.0); PLATELET COUNT, AUTOMATED 268 10^3/uL (150-450); RED BLOOD COUNT 3.46 10^6/uL (4.30-6.10); WHITE BLOOD COUNT 10.2 10^3/uL (4.0-10.0)
[2019-06-06 02:02] LABS: APPEARANCE, URINE CLEAR (CLEAR); BACTERIA, URINE AUTO NEGATIVE (NEGATIVE); BILIRUBIN, URINE AUTO NEGATIVE (NEGATIVE); BLOOD, URINE BLOOD NEGATIVE (NEGATIVE); COLOR, URINE YELLOW (YELLOW); GLUCOSE, URINE (UA) AUTO NEGATIVE (NEGATIVE); KETONE, URINE AUTO NEGATIVE (NEGATIVE); LEUKOCYTE ESTERASE, URINE AUTO NEGATIVE (NEGATIVE); MUCUS, URINE SMALL (NEGATIVE); NITRITE, URINE AUTO NEGATIVE (NEGATIVE); PROTEIN, URINE AUTO NEGATIVE (NEGATIVE); RBC, URINE AUTO 1 /HPF (0-3); SPECIFIC GRAVITY URINE AUTO 1.006 (1.002-1.035); SQUAMOUS EPITHELIAL CELL UR AU 0 /HPF (0-6); UROBILINOGEN, URINE AUTO 0.2 mg/dL (0.0-2.0); WBC, URINE AUTO 2 /HPF (0-3)
[2019-06-06] MEDS: SLF 3 ML SYR IV SCH ×3 (05:05→22:47)
[2019-06-06 06:00] VITALS: BP 111/83
[2019-06-06 06:50] LABS: CALCIUM LEVEL 8.4 MG/DL (8.8-10.2); CREATININE FOR GFR 2.1 MG/DL (0.70-1.30); GLOMERULAR FILTRATION RATE 32.1 (>35); POTASSIUM SERUM 3.5 MEQ/L (3.5-5.1)
--- NOTE | 2019-06-06 08:23 | REP ---
Chest x-ray:: Two views. History: Shortness of breath. Comparison chest x-ray June 05 102. Findings: A bipolar pacemaker is again noted in the right heart. Heart size is borderline as before. There is a granulomatous calcification overlying the left heart in the left lung base. There is slight blunting of the right lateral pleural angle and fissural thickening is seen in the minor fissure. There is an oval-shaped nodular density along the minor fissure on the frontal view which is seen to be due to intrafissural fluid. This is a little larger than on June 04 and June 05 radiographs. The there are is improved aeration in the right lower lobe. No new infiltrate. Electronically Signed by Hollis Weems MD 06/06/2019 08:14 A
[2019-06-06 08:58] LABS: HEMATOCRIT 35.7 % (42.0-52.0); HEMOGLOBIN 11.4 g/dl (13.5-17.5); MEAN CORPUSCULAR HEMOGLOBIN 33.4 pg (27.0-33.0); MEAN CORPUSCULAR HGB CONC 31.9 g/dl (32.0-36.5); MEAN CORPUSCULAR VOLUME 104.7 fl (80.0-96.0); PLATELET COUNT, AUTOMATED 267 10^3/uL (150-450); RED BLOOD COUNT 3.41 10^6/uL (4.30-6.10); WHITE BLOOD COUNT 10.9 10^3/uL (4.0-10.0)
[2019-06-06] MEDS ORDERED: HALOPERIDOL 0.25MG PER 1/2 TABLET PO SCH (09:00)
[2019-06-06] MEDS: amLODIPine 10 MG TAB PO SCH (09:21)
[2019-06-06] MEDS: APIXABAN 2.5 MG TAB (ELIQUIS) PO SCH ×2 (09:22→20:09)
[2019-06-06] MEDS: OMEPRAZOLE 20 MG CAP PO SCH (09:22)
[2019-06-06] MEDS: THIAMINE 100 MG TAB PO SCH (09:22)
[2019-06-06] MEDS: MULTIVITAMINS/MINERALS THERAP 1 TAB PO SCH (09:22)
[2019-06-06] MEDS: bisoproloL fumarate 5 MG TAB PO SCH (09:22)
[2019-06-06] MEDS: FOLIC ACID 1 MG TAB PO SCH (09:22)
[2019-06-06 09:29] LABS: ALBUMIN 2.2 GM/DL (3.2-5.2); BILIRUBIN,TOTAL 0.4 MG/DL (0.2-1.0); CALCIUM LEVEL 7.6 MG/DL (8.8-10.2); CREATININE FOR GFR 1.95 MG/DL (0.70-1.30); POTASSIUM SERUM 3.6 MEQ/L (3.5-5.1); TOTAL PROTEIN 5.3 GM/DL (6.4-8.2)
--- NOTE | 2019-06-06 09:39 | IPNPDOC ---
Date Seen The patient was seen on 06/06/19. Progress Note Per Psychiatrist Dr Tequila Evans, august try: -zyprexa 25 mg po qam -ativan 2mg iv q4hprn agitation -haldol 5 mg po q4hprn agitation -trazodone 50 mg po qhs -psych consult placed. VS, I&O, 24H, Fishbone Vital Signs/I&O Vital Signs Date Time Temp Pulse Resp B/P (MAP) Pulse Ox O2 Delivery O2 Flow Rate FiO2 06/06/19 09:21 113 119/82 06/06/19 06:00 98.3 22 94 Room Air I&O- Last 24 Hours up to 6 AM 06/06/19 06:00 Intake Total 1160 ml Output Total 1395 ml Balance -235 ml Laboratory Data 24H LABS Laboratory Tests 2 06/05/19 23:01: Immature Granulocyte % (Auto) 0.8, Neutrophils (%) (Auto) 74.6H, Lymphocytes (%) (Auto) 10.3L, Monocytes (%) (Auto) 12.4H, Eosinophils (%) (Auto) 1.2, Basophils (%) (Auto) 0.7, Immature Granulocyte # (Auto) 0.1H, Neutrophils # (Auto) 7.6, Lymphocytes # (Auto) 1.1L, Monocytes # (Auto) 1.3H, Eosinophils # (Auto) 0.1, Basophils # (Auto) 0.1, Nucleated Red Blood Cells % (auto) 0.0 06/06/19 01:50: Urine Color YELLOW, Urine Appearance CLEAR, Urine pH 6.0, Urine Specific [place] 1.006, Urine Protein NEGATIVE, Urine Glucose (Auto)(UA) NEGATIVE, Urine Ketones (Auto) NEGATIVE, Urine Blood NEGATIVE, Urine Nitrite NEGATIVE, Urine Bilirubin NEGATIVE, Urine Urobilinogen 0.2, Urine Leukocyte Esterase (Auto) NEGATIVE, Urine WBC (Auto) 2, Urine RBC (Auto) 1, Urine Hyaline Casts (Auto) 0, Urine Bacteria (Auto) NEGATIVE, Urine Squamous Epithelial Cells 0, Urine Mucus (Auto) SMALL, Urine Sperm (Auto) 06/06/19 06:05: Anion Gap 6L, Glomerular Filtration Rate 32.1L, Calcium Level 8.4L 06/06/19 08:41: Nucleated Red Blood Cells % (auto) 0.0, Anion Gap 6L, Glomerular Filtration Rate 35.0, Calcium Level 7.6L, Total Bilirubin 0.4, Aspartate Amino Transf (AST/SGOT) 25, Alanine Aminotransferase (ALT/SGPT) 22, Alkaline Phosphatase 183H, Ammonia 16, AY-Kaf-G-Type Natriuretic Peptide 3718H, Total Protein 5.3L, Albumin 2.2L, Albumin/Globulin Ratio 0.71L CBC/BMP Laboratory Tests 06/05/19 23:01 06/06/19 06:05 06/06/19 08:41 Microbiology Microbiology 05/27/19 Acid Fast Stain, Received Pending 05/27/19 Mycobacterial Culture, Received Pending 05/27/19 Fungal Smear, Received Pending 05/27/19 Fungal Culture, Received Pending 05/27/19 Gram Stain - Final, Complete 05/27/19 Anaerobic Culture - Final, Complete 05/27/19 Body Fluid Culture - Final, Complete LAURA JEAN MD Jun 06, 2019 09:39
[2019-06-06] MEDS ORDERED: haloperidoL 5 MG TAB PO PRN (09:45)
[2019-06-06] MEDS ORDERED: LORazepam 2 MG/ML VIAL (J2060) IV PRN (09:45)
[2019-06-06] MEDS ORDERED: OLANZapine 5 MG TAB PO PRN (10:00)
[2019-06-06] MEDS: QUEtiapine FUMARATE 25 MG TAB PO SCH (10:00)
[2019-06-06] MEDS ORDERED: LORazepam 1 MG TAB PO PRN (11:15)
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
[2019-06-06 14:00] VITALS: BP 104/65
[2019-06-06] MEDS: traZODone 50 MG TAB PO SCH (20:09)
[2019-06-06] MEDS: ACETAMINOPHEN 500 MG TAB PO SCH (20:09)
[2019-06-06 22:00] VITALS: BP 116/70
[2019-06-06] MEDS: ACETAMINOPHEN TAB 650MG DOSE (2X325MG) PO PRN (23:31)
[2019-06-07 06:00] VITALS: BP 119/67
[2019-06-07 06:46] LABS: HEMATOCRIT 33.4 % (42.0-52.0); MEAN CORPUSCULAR HEMOGLOBIN 33.6 pg (27.0-33.0); MEAN CORPUSCULAR HGB CONC 32.9 g/dl (32.0-36.5); MEAN CORPUSCULAR VOLUME 102.1 fl (80.0-96.0); PLATELET COUNT, AUTOMATED 207 10^3/uL (150-450); RED BLOOD COUNT 3.27 10^6/uL (4.30-6.10); WHITE BLOOD COUNT 14.2 10^3/uL (4.0-10.0)
[2019-06-07] MEDS: SLF 3 ML SYR IV SCH ×3 (06:46→21:12)
[2019-06-07 07:19] LABS: CALCIUM LEVEL 7.6 MG/DL (8.8-10.2); CREATININE FOR GFR 2.07 MG/DL (0.70-1.30); GLOMERULAR FILTRATION RATE 32.7 (>35); MAGNESIUM LEVEL 1.6 MG/DL (1.8-2.4); POTASSIUM SERUM 3.8 MEQ/L (3.5-5.1)
[2019-06-07 07:44] LABS: C REACTIVE PROTEIN QUANTITATIV 12.7 MG/DL (0.00-0.30)
[2019-06-07] MEDS ORDERED: ONDANSETRON 4MG/2ML VIAL (J2405) As Ordered ONE (07:52)
[2019-06-07] MEDS ORDERED: ONDANSETRON 4MG/2ML VIAL (J2405) IV PRN (08:00)
[2019-06-07 08:47] LABS: ERYTHROCYTE SEDIMENTATION RATE 63 mm/hr (0-20)
[2019-06-07] MEDS: bisoproloL fumarate 5 MG TAB PO SCH (09:00)
[2019-06-07] MEDS ORDERED: ONDANSETRON 4MG/2ML VIAL (J2405) IV ONE (09:00)
--- NOTE | 2019-06-07 09:03 | REP ---
CT chest without contrast: History: Fever. Altered mental status. Comparison chest CT study is from May 28, 2019. CT findings: There is a loculated pleural effusion in the right pleural space with areas of pleural fluid at the base posteriorly as well as superolaterally. There is some residual subcutaneous emphysema in the right axillary soft tissues. There are small air bubbles in the right pleural space inferiorly . No significant pneumothorax is seen on the right. There is a small amount of left pleural fluid posteriorly. There is a air bolus in the left lower lobe. No left-sided pneumothorax. The previously noted left lower lobe infiltrate is improved. There are some compressive atelectatic changes in the right base. There is some fissural fluid along the minor fissure on the right. There are small zones of residual consolidation in the superior segment of the left lower lobe. This is improved however. Extensive vascular calcification is seen. Cardiomegaly with pacemaker noted. Impression: Loculated right-sided hydrothorax. There are several bubbles of pleural air at the right base as well. Electronically Signed by Hollis Weems MD 06/07/2019 12:13 P
--- NOTE | 2019-06-07 09:13 | REP ---
CT abdomen pelvis without IV or oral contrast: History: Nausea vomiting and fever. Comparison CT study September 04, 2018. CT findings: There is a very small left pleural effusion and a larger right pleural effusion is noted. There are granulomatous calcifications in the spleen. Cardiomegaly is observed. No focal liver lesion. Gallbladder is somewhat distended, measuring up to 11.9 cm in greatest diameter. No stone is seen by CT. No pericholecystic fluid or edema is noted. There is considerable cortical atrophy of the right kidney. Bilateral renal cortical cysts are seen. No pancreatic abnormality is seen. Vascular calcification is noted. The iliac arteries are ectatic and heavily calcified but not aneurysmal. No abdominal wall defect is seen. Small and large intestinal bowel loops are unremarkable. Urinary bladder appears intact. Seminal vesicles are unremarkable. Radiotherapy seeds are noted dispersed throughout the prostate gland. Impression: Somewhat distended gallbladder. Otherwise no acute intra-abdominal abnormality. Electronically Signed by Hollis Weems MD 06/07/2019 12:13 P
[2019-06-07] MEDS: QUEtiapine FUMARATE 25 MG TAB PO SCH (10:51)
[2019-06-07] MEDS: OMEPRAZOLE 20 MG CAP PO SCH (10:51)
[2019-06-07] MEDS: FOLIC ACID 1 MG TAB PO SCH (10:51)
[2019-06-07] MEDS: THIAMINE 100 MG TAB PO SCH (10:51)
[2019-06-07] MEDS: MULTIVITAMINS/MINERALS THERAP 1 TAB PO SCH (10:52)
[2019-06-07] MEDS: TORSEMIDE 20 MG TAB PO SCH (10:52)
[2019-06-07] MEDS: amLODIPine 10 MG TAB PO SCH (10:53)
[2019-06-07] MEDS: APIXABAN 2.5 MG TAB (ELIQUIS) PO SCH ×2 (10:53→20:23)
[2019-06-07] MEDS ORDERED: PIPERACILLIN/TAZOBACTAM SOD 3.375 GM in D5W MINI-BAG PLUS 50 ML IV SCH (11:15)
--- NOTE | 2019-06-07 11:39 | IPN ---
DATE: 06/07/2019 The patient complained of nausea and vomiting this morning. He has distended gallbladder on CT, febrile with [address] shows loculated right sided hydrothorax, several bubbles of pleural air at the right base. The patient continued to be confused overnight and tachycardic. VITAL SIGNS: Temperature 101, pulse 115, respiratory rate 19, blood pressure 101/59, 91% on room air. GENERAL: Awake, alert, oriented to himself only. Cooperative this morning. No jugular venous distention (JVD). No thyromegaly. LUNGS: Crackles at bilateral bases. HEART: S1, S2. Irregularly irregular. Tachycardic. ABDOMEN: Soft and tender in the epigastric region. No rebound or guarding. EXTREMITIES: No cyanosis, clubbing. LABORATORY DATA: White count 14.2, hemoglobin 11, hematocrit 33, platelet count 207. Sodium 139, potassium 3.9, chloride 103, bicarbonate 30, BUN 20, creatinine 2.07, glucose 111, magnesium 1.6. ASSESSMENT AND PLAN: 84-year-old male with alcohol withdrawal, presented with recurrent pleural effusion, status post thoracentesis complicated by pneumothorax, status post chest tube placement and congestive heart failure (CHF) with acute decompensated diastolic dysfunction. The patient has significant metabolic encephalopathy, now found to have slightly dilated gallbladder. ASSESSMENT AND PLAN: 1. Fever with vomiting. erazo cultured. CT TAP: right loculated hydrothorax and distended gallbaldder. Re-consult thoracic surgery for the loculated hydrothorax on the right with bubbles. if not availabe, will ask IR to place a drain. We will start on intravenous Zosyn. renally dosed,due to acute kidney injury, check ultrasound of the gallbladder, and General surgical consultation. Nothing by mouth status for now. 2. Right loculated hydrothorax with bubbles in right base. on Iv Zosyn day 1. Defer to thoracic surgery for intervention if needed. 3. Congestive heart failure (CHF), compensated. managed by cardiology Dr. Vee. 4. Hypomagnesemia, repleted. 5. Acute delirium with aggressiveness. The patient has been evaluated by psychiatrist. 6. Atrial fibrillation. Rate is currently uncontrolled on Cardizem 240 mg twice a day. Continue on telemetry monitoring. 7. Acute on CKD3. monitoring with serial mp. 8. Acute Delirium on chronic dementia. on prn ativan. Psychiatrist consulted . 9. Alcohol withdrawal, resolved. MTDD
[2019-06-07 12:41] LABS: ALBUMIN 1.7 GM/DL (3.2-5.2); BILIRUBIN,DIRECT 0.3 MG/DL (0.0-0.2); BILIRUBIN,TOTAL 0.5 MG/DL (0.2-1.0); TOTAL PROTEIN 5.2 GM/DL (6.4-8.2)
[2019-06-07] MEDS: PIPERACILLIN/TAZOBACTAM SOD 2.25 GM in D5W MINI-BAG PLUS 50 ML IV SCH ×2 (12:41→18:26)
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
[2019-06-07] MEDS ORDERED: HALOPERIDOL 5 MG/ML VIAL (J1630) IV PRN (15:45)
[2019-06-07] MEDS: LORazepam 2 MG/ML VIAL (J2060) IV PRN ×2 (16:05→20:24)
[2019-06-07 17:11] VITALS: BP 108/55
--- NOTE | 2019-06-07 18:02 | REPVR ---
PROCEDURE INFORMATION: Exam: US Abdomen Limited, Right Upper Quadrant Exam date and time: 06/07/2019 5:44 PM Age: 84 years old Clinical indication: Pain and abnormal findings; Abnormal radiologic finding of the abdomen; Radiologic exam and body structure: CT abdomen; Abdominal pain; Generalized; Additional info: Vomiting gallbladder distension. TECHNIQUE: Imaging protocol: Real-time ultrasound of the abdomen with image documentation. Examination was focused on the right upper quadrant. COMPARISON: CT ABD PELVIS W/O CONTRAST 06/07/2019 8:18 AM FINDINGS: Liver: Normal. No masses. Gallbladder: Gallbladder well distended and contains sludge. There is mild thickening of the gallbladder wall with trace pericholecystic fluid. Common bile duct: The common bile duct measures 8.5 mm. No mass or choledocholithiasis. Pancreas: Visualized pancreas is unremarkable. Right kidney: Right kidney measures 8.4 x 4.4 x 4.3 cm. Several renal cysts demonstrated measuring up to 1.6 cm in the interpolar region. Echogenic renal parenchyma in combination with small renal size consistent with changes related to chronic renal failure. Other: Right pleural effusion. IMPRESSION: 1. Gallbladder well distended and contains sludge. There is mild thickening of the gallbladder wall with trace pericholecystic fluid. No calculi demonstrated. Clinical correlation to exclude cholecystitis suggested. 2. Right kidney measures 8.4 x 4.4 x 4.3 cm. Several renal cysts demonstrated measuring up to 1.6 cm in the interpolar region. Echogenic renal parenchyma in combination with small renal size consistent with changes related to chronic renal failure. 3. The common bile duct measures 8.5 mm. No mass or choledocholithiasis. Electronically signed by: Fitz Paniagua On 06/07/2019 18:02:09 PM
[2019-06-07 20:00] VITALS: BP 103/63
[2019-06-07] MEDS: traZODone 50 MG TAB PO SCH (20:23)
[2019-06-07] MEDS: ACETAMINOPHEN 500 MG TAB PO SCH (20:23)
[2019-06-07 23:59] VITALS: BP 102/58
[2019-06-08] VITALS (13 sets, daily range): BP systolic 76–131; BP diastolic 50–87
[2019-06-08] MEDS: PIPERACILLIN/TAZOBACTAM SOD 2.25 GM in D5W MINI-BAG PLUS 50 ML IV SCH ×4 (00:29→18:39)
[2019-06-08] MEDS ORDERED: flumazeniL 0.5 MG/5 ML VIAL IV STA (02:52)
[2019-06-08] MEDS ORDERED: FUROSEMIDE 20 MG/2 ML VIAL (J1940) IV ONE (03:00)
[2019-06-08 03:04] LABS: ABG BASE EXCESS 5.4 (-2.0-2.0); ABG HCO3 30.9 MEQ/L (22.0-26.0); ABG O2 SATURATION 99.8 % (95.0-99.0); ABG PARTIAL PRESSURE CO2 50.1 mmHg (35.0-45.0); ABG PARTIAL PRESSURE O2 329.4 mmHg (75.0-100.0); ABG STANDARD HCO3 29.4 MEQ/L (22.0-26.0); ABG TOTAL CO2 32.4 MEQ/L (23.0-31.0); ABG pH (ARTERIAL) 7.408 UNITS (7.350-7.450)
[2019-06-08 03:11] LABS: HEMATOCRIT 30.2 % (42.0-52.0); HEMOGLOBIN 9.7 g/dl (13.5-17.5); MEAN CORPUSCULAR HEMOGLOBIN 33.2 pg (27.0-33.0); MEAN CORPUSCULAR HGB CONC 32.1 g/dl (32.0-36.5); MEAN CORPUSCULAR VOLUME 103.4 fl (80.0-96.0); PLATELET COUNT, AUTOMATED 169 10^3/uL (150-450); RED BLOOD COUNT 2.92 10^6/uL (4.30-6.10); WHITE BLOOD COUNT 8.7 10^3/uL (4.0-10.0)
--- NOTE | 2019-06-08 03:41 | REPVR ---
PROCEDURE INFORMATION: Exam: CT Head Without Contrast Exam date and time: 06/08/2019 3:10 AM Age: 84 years old Clinical indication: Altered mental status/memory loss; Confusion or disorientation; Additional info: AMS w/ acute onset apnea and lethargy TECHNIQUE: Imaging protocol: Computed tomography of the head without contrast. Radiation optimization: All CT scans at this facility use at least one of these dose optimization techniques: automated exposure control; mA and/or kV adjustment per patient size (includes targeted exams where dose is matched to clinical indication); or iterative reconstruction. COMPARISON: CT Head without contrast 2019-05-28 23:00 FINDINGS: Brain: Diffuse mild cerebral age related volume loss. Mild patchy low attenuation in the white matter compatible with mild chronic small vessel ischemic disease. No midline shift, mass, fluid collection, or evidence of hemorrhage. Ventricles: Ventricular enlargement proportional to volume loss. Bones/joints: Unremarkable. No acute fracture. Sinuses: Visualized sinuses are unremarkable. No fluid levels. Mastoid air cells: Visualized mastoid air cells are well aerated. Soft tissues: Unremarkable. IMPRESSION: Mild involutional changes, no acute intracranial abnormality. Electronically signed by: Nithin Sidhu On 06/08/2019 03:41:33 AM
[2019-06-08 03:46] LABS: BLOOD UREA NITROGEN 29 MG/DL (7-18); CARBON DIOXIDE LEVEL 32 MEQ/L (21-32); CHLORIDE LEVEL 103 MEQ/L (98-107); CK-MB VALUE MASS < 1.0 NG/ML (<3.6); CPK CREATINE PHOSPHOKINASE 121 U/L (39-308); CREATININE FOR GFR 2.68 MG/DL (0.70-1.30); GLOMERULAR FILTRATION RATE 24.2 (>35); GLUCOSE, FASTING 129 MG/DL (70-100); MB/CK RELATIVE INDEX 0.83 (< OR =4); POTASSIUM SERUM 3.4 MEQ/L (3.5-5.1); SODIUM LEVEL 141 MEQ/L (136-145); TROPONIN I 0.04 NG/ML (< 0.10)
[2019-06-08 06:31] LABS: HEMATOCRIT 30.6 % (42.0-52.0); MEAN CORPUSCULAR HEMOGLOBIN 33.9 pg (27.0-33.0); MEAN CORPUSCULAR HGB CONC 32.7 g/dl (32.0-36.5); MEAN CORPUSCULAR VOLUME 103.7 fl (80.0-96.0); PLATELET COUNT, AUTOMATED 181 10^3/uL (150-450); RED BLOOD COUNT 2.95 10^6/uL (4.30-6.10); WHITE BLOOD COUNT 8.5 10^3/uL (4.0-10.0)
[2019-06-08 06:50] LABS: CALCIUM LEVEL 7.5 MG/DL (8.8-10.2); CREATININE FOR GFR 2.82 MG/DL (0.70-1.30); GLOMERULAR FILTRATION RATE 22.9 (>35); MAGNESIUM LEVEL 1.9 MG/DL (1.8-2.4); POTASSIUM SERUM 3.8 MEQ/L (3.5-5.1)
[2019-06-08] MEDS: SLF 3 ML SYR IV SCH ×3 (06:51→21:35)
[2019-06-08] MEDS ORDERED: NS 500 ML IV ONE (07:30)
[2019-06-08] MEDS: MULTIVITAMINS/MINERALS THERAP 1 TAB PO SCH (09:33)
[2019-06-08] MEDS: FOLIC ACID 1 MG TAB PO SCH (09:33)
[2019-06-08] MEDS: OMEPRAZOLE 20 MG CAP PO SCH (09:33)
[2019-06-08] MEDS: APIXABAN 2.5 MG TAB (ELIQUIS) PO SCH ×2 (09:33→21:35)
[2019-06-08] MEDS: THIAMINE 100 MG TAB PO SCH (09:33)
[2019-06-08] MEDS: QUEtiapine FUMARATE 25 MG TAB PO SCH (09:33)
[2019-06-08] MEDS: NS 1,000 ML IV SCH ×2 (09:34→18:25)
[2019-06-08] MEDS: bisoproloL fumarate 5 MG TAB PO SCH (10:44)
[2019-06-08] MEDS ORDERED: VANCOMYCIN HCL 1,000 MG, VIAL MATE ADAPTER 1 EACH in D5W 250 ML IV ONE (11:00)
--- NOTE | 2019-06-08 12:13 | REP ---
Clinical: Renal failure. Technique: Real time gutierrez scale ultrasound examination using curved array transducer. Comparison: Right upper quadrant ultrasound dated 06/07/2019 Findings: The kidneys appear hyperechoic consistent with chronic renal disease and there is no evidence for hydronephrosis or obvious mass lesion. The right kidney measures 8.8 x 5.2 x 4.3 cm and includes upper pole cyst measuring 2.7 cm and mid pole cyst measuring 1.3 cm. Previously identified third cyst is not well identified and examination is somewhat limited due to portable technique. The left kidney measures 11.4 x 5.0 x 6.8 cm and includes 3.1 cm upper pole cyst, 1.5 cm mid pole cyst, and 1.7 cm lower pole cyst with calcification. Galvan catheter in collapsed bladder. Findings: Chronic medical renal disease and scattered bilateral cysts. No hydronephrosis. Electronically Signed by Mariusz Mackenzie MD 06/08/2019 12:05 P
[2019-06-08] MEDS ORDERED: AMIODARONE HCL 150 MG in IV 1 EA IV STA (13:40)
[2019-06-08] MEDS ORDERED: diltiaZEM 125 MG in NS 100 ML IV SCH (14:00)
--- NOTE | 2019-06-08 16:47 | ECGEPIP ---
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 Order Number: [id number] Reading MD: Nithin Cloud Measurements Intervals [place] Rate: 120 P: WI: 0 QRS: -74 QRSD: 165 T: 6 QT: 387 QTc: 548 Interpretive Statements ATRIAL FIBRILLATION WITH RAPID VENTRICULAR RESPONSE MARKED LEFT AXIS DEVIATION RIGHT BUNDLE BRANCH BLOCK + LAFB Electronically Signed on 06-08-2019 16:47:17 EST by Nithin Cloud
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
--- NOTE | 2019-06-08 18:21 | ECHO ---
DATE OF PROCEDURE: 06/08/2019 REFERRING PHYSICIAN: Dr. Fariba Espinoza INDICATION: Bacteremia. HEIGHT: 70 inches WEIGHT: 70 kg 2D MEASUREMENTS: LVOT: 2.0 cm Left atrium: 5.2 cm Aortic root: 2.8 cm Ventricular septum: 1.28 cm Posterior wall: 1.27 cm Left ventricle diastole: 4.1 cm Inferior vena cava: 2.8 cm with marked reduction of respiratory variation. DOPPLER MEASUREMENTS: Mild aortic regurgitation. Aortic valve velocity: 185 cm/s Very mild mitral regurgitation. Severe tricuspid regurgitation. Estimated right ventricle systolic pressure at least 51 mmHg assuming a right atrial pressure of at least 20 mmHg. DESCRIPTION: Rhythm was atrial fibrillation. This was a moderately technically difficult echocardiogram. This was a 2D, M-mode, color flow Doppler and pulse wave Doppler examination. CONCLUSIONS: 1. No vegetations observed on any of the cardiac valves. 2. Suggestive of moderate elevation of estimated right ventricle systolic pressure (at least 51 mmHg). Mildly dilated right ventricle with normal RV systolic function. Severe right atrial dilatation. 3. Inferior vena cava plethora with marked reduction of respiratory variation suggestive of elevated central venous pressure of at least 20 mmHg. 4. Right pleural effusion. 5. Very small pericardial effusion. No diastolic chamber collapse. 6. Severe left atrial dilatation. 7. Mild concentric left ventricle hypertrophy. Normal regional LV wall motion and wall thickening. Normal LV systolic function. Left ventricular ejection fraction (LVEF) 60% by visual estimate. Unable to determine LV diastolic function in the setting of atrial fibrillation. 8. Moderate aortic valve sclerosis of a 3-cusp aortic valve. Very mild reduction in aortic cusp mobility. No aortic stenosis. Very mild aortic regurgitation. 9. Moderate mitral annular calcification. Very mild mitral regurgitation. No mitral stenosis. 10. Presence of a right ventricle pacemaker lead coursing towards the right ventricle apex.
[2019-06-08] MEDS: traZODone 50 MG TAB PO SCH (21:00)
[2019-06-08] MEDS: ACETAMINOPHEN 500 MG TAB PO SCH (21:34)
[2019-06-09] VITALS (8 sets, daily range): BP systolic 82–130; BP diastolic 48–80
[2019-06-09] MEDS: PIPERACILLIN/TAZOBACTAM SOD 2.25 GM in D5W MINI-BAG PLUS 50 ML IV SCH ×2 (00:06→06:09)
[2019-06-09 05:35] LABS: HEMATOCRIT 30.5 % (42.0-52.0); HEMOGLOBIN 9.6 g/dl (13.5-17.5); MEAN CORPUSCULAR HEMOGLOBIN 32.9 pg (27.0-33.0); MEAN CORPUSCULAR HGB CONC 31.5 g/dl (32.0-36.5); MEAN CORPUSCULAR VOLUME 104.5 fl (80.0-96.0); PLATELET COUNT, AUTOMATED 175 10^3/uL (150-450); RED BLOOD COUNT 2.92 10^6/uL (4.30-6.10); WHITE BLOOD COUNT 5.9 10^3/uL (4.0-10.0)
[2019-06-09 05:59] LABS: CALCIUM LEVEL 7.2 MG/DL (8.8-10.2); CREATININE FOR GFR 2.66 MG/DL (0.70-1.30); GLOMERULAR FILTRATION RATE 24.4 (>35); MAGNESIUM LEVEL 1.8 MG/DL (1.8-2.4); POTASSIUM SERUM 3.4 MEQ/L (3.5-5.1)
[2019-06-09] MEDS: SLF 3 ML SYR IV SCH ×3 (06:07→21:32)
--- NOTE | 2019-06-09 07:21 | CR ---
DATE OF CONSULTATION: 06/08/2019 REQUESTING PHYSICIAN: Dr. Fariba Espinoza CONSULTING PHYSICIAN: Dr. Guevara REASON FOR CONSULTATION: Management of acute kidney injury and optimization of volume status. NOTE: History was obtained from the chart and from the medical team. The patient is unable to provide any history. HISTORY OF PRESENT ILLNESS: The patient is an 84-year-old male who was admitted on May with right-sided pneumothorax after his pleural effusion was drained on May 17, 2019. Hospital course is complicated with delirium tremens, atrial fibrillation with rapid ventricular rate, difficult to control because of low blood pressures; Bystolic was held, Cardizem was given today morning. The patient also has a history of congestive heart failure with recurrent bilateral pleural effusions. He has a baseline chronic kidney disease stage III with a creatinine of around 1.6. Imaging also showed that he has some distention of the gallbladder with mild pericholecystic fluid. He has a right-sided loculated hydrothorax. He was recently admitted to the intensive care unit (ICU) because of altered mental status and hypotension, and there is a bump in his creatinine level, so nephrology service was called for further help in the management of this patient. His creatinine has bumped up from 1.9 two days ago to 2.6 today morning. The patient was given normal saline bolus as well. Blood cultures were sent. He has loculated hydrothorax on the right side. He is currently on broad-spectrum antibiotic, Zosyn. I saw and evaluated the patient at the bedside today morning. He was very obtunded, unable to answer questions, laying in bed and there was one-to-one sitter in the room. PAST MEDICAL HISTORY: Past medical history of chronic kidney disease stage III, baseline creatinine of around 1.6, congestive heart failure with preserved ejection fraction, recurrent pleural effusions, recent right-sided pneumothorax, hypertension, chronic atrial fibrillation, sick sinus syndrome, status post pacemaker, peripheral vascular disease, carotid artery disease, history of prostate cancer status post radiation seeds, history of kidney stones, hyperlipidemia, chronic back pain. PAST SURGICAL HISTORY: Status post pacemaker placement, status post a right carotid endarterectomy, status post right knee replacement, status post a right-sided thoracentesis. ALLERGIES: No known drug allergies. FAMILY HISTORY: No significant family history of end-stage renal disease requiring hemodialysis. SOCIAL HISTORY: The patient is a former smoker. He is a daily alcohol drinker. There is no history of drug abuse. REVIEW OF SYSTEMS: The patient is very obtunded. He is unable to provide any reliable review of systems. Vital signs: When I saw him today morning, his temperature was 98.3, blood pressure 89/50, pulse 107, respiratory rate of 23, saturating 94% on nasal cannula at 2 liters. Head and neck exam: Patient's eyes are closed. He opens eyes on loud commands. Mucous membranes are moist. Neck is supple. There is very mild elevation of jugular venous distention (JVD). Cardiovascular: S1, S2 irregularly irregular rate, tachycardia. No edema of the bilateral lower extremities. Respiratory: Chest is clear to auscultation bilaterally. Bilateral equal air entry. Decreased breath sounds on the right base. Abdomen: Soft, positive bowel sounds. Nontender. No organomegaly was noted. Genitourinary: He had a [place] catheter. There was no urine in the bag. Musculoskeletal: No clubbing or cyanosis. Pulses are 2+. Central nervous system (AGRONOMY SPECIALIST): The patient is very obtunded, slightly agitated. LAB REVIEW: CBC showed a WBC of 8.5, hemoglobin is 10, platelets are 181. ABG done today morning showed a pH of 7.40, pCO2 of 50, pO2 of 329, bicarb is 30, O2 sat is 99.8%. BMP done today morning showed sodium 141, potassium 3.4, chloride 103, bicarbonate 32, BUN 29, creatinine 2.6, calcium is 7, magnesium 1.9, ammonia 31. Microbiology: Blood cultures prelim drawn yesterday both are growing Staphylococcus (staph) aureus. IMAGING: A renal ultrasound was done today morning, which showed chronic medical renal disease and bilateral renal cysts. There was no hydronephrosis. CT scan of the head was done today morning, which showed mild involutional changes. No acute intracranial abnormality. CURRENT INPATIENT MEDICATIONS: The patient's medications were all reviewed by me. He was given amiodarone 150 mg IV times one dose, diltiazem drip initially was started, which has been stopped now. He was given normal saline bolus 500 mg IV times one dose. The patient is on Zosyn 2.25 grams IV every 6 hours. He was also given a dose of vancomycin 1 gram IV times one dose. He is on Tylenol as needed, Eliquis 2.5 mg by mouth twice a day, Zebeta 5 mg by mouth daily, and he is on diltiazem 240 mg by mouth twice a day, Haldol 1 mg IV every 6 hours as needed for agitation, Ativan as needed for anxiety and agitation, omeprazole 20 mg by mouth daily, Zofran as needed, Seroquel 25 mg by mouth in the morning, thiamine 100 mg by mouth daily, torsemide 40 mg by mouth daily was stopped today morning. ASSESSMENT: 84-year-old male with acute kidney injury superimposed on chronic kidney disease stage III, staph aureus bacteremia, atrial fibrillation with rapid ventricular response, and hypotension. PLAN: 1. Acute kidney injury superimposed on chronic kidney disease, stage III, most likely secondary to volume depletion and hypotension, which is a combination of atrial fibrillation and bacteremia. The patient was given IV fluid bolus, try to maintain a systolic blood pressure above 100. The patient is going to finish one liter of IV fluid hydration. Okay to hold the diuretics at this time. Continue to monitor intake and output. Galvan catheter is being placed at this time. 2. Staphylococcus aureus bacteremia. The patient is already on Zosyn, vancomycin has been added to the regimen today. Final sensitivity results are pending. 3. Atrial fibrillation with rapid ventricular rate. Patient was given a dose of amiodarone today. Heart rate is better controlled. Continue the Eliquis anticoagulation. He continues to be on Zebeta and Cardizem. However, blood pressures are very soft. 4. Delirium tremens secondary to alcohol withdrawal. The patient continues to be on Haldol and Ativan. Management is as per primary team. Thank you for involving me in the care of this patient. I shall be happy to follow the patient along with you tomorrow morning. Total critical care time spent in the management of this patient today morning in the ICU was 70 minutes; that does not include any procedures.
--- NOTE | 2019-06-09 08:13 | REP ---
Clinical: Pleural effusion. Technique: AP and lateral. Comparison: 06/06/2019. Findings: Mediastinum and cardiac silhouette are stable. Right lower lobe pleuroparenchymal changes suggest elements of acute infiltrate and possible pleural effusion. Left hemithorax is relatively clear. Underlying chronic changes noted. Skeletal structures intact. Impression: Right lower lobe pleuroparenchymal changes consistent with atelectasis and effusion which appears slightly increased when compared to 06/06/2019 . Electronically Signed by Mariusz Mackenzie MD 06/09/2019 08:05 A
[2019-06-09] MEDS ORDERED: LEVALBUTEROL 1.25 MG/0.5 ML CONCENTRATE NEB INH PRN (08:30)
[2019-06-09] MEDS ORDERED: POTASSIUM CHLORIDE 10 MEQ SR TABLET PO ONE (08:30)
[2019-06-09] MEDS ORDERED: VANCOMYCIN HCL 1,000 MG, VIAL MATE ADAPTER 1 EACH in D5W 250 ML IV SCH (09:00)
[2019-06-09] MEDS: OMEPRAZOLE 20 MG CAP PO SCH (10:26)
[2019-06-09] MEDS: FOLIC ACID 1 MG TAB PO SCH (10:26)
[2019-06-09] MEDS: THIAMINE 100 MG TAB PO SCH (10:26)
[2019-06-09] MEDS: QUEtiapine FUMARATE 25 MG TAB PO SCH (10:26)
[2019-06-09] MEDS: MULTIVITAMINS/MINERALS THERAP 1 TAB PO SCH (10:26)
[2019-06-09] MEDS: APIXABAN 2.5 MG TAB (ELIQUIS) PO SCH ×2 (10:26→21:32)
[2019-06-09] MEDS: LevoFLOXacin IV 500 MG in IV 1 EA IV SCH (10:27)
[2019-06-09] MEDS: bisoproloL fumarate 5 MG TAB PO SCH (10:34)
[2019-06-09] MEDS: LEVALBUTEROL 1.25 MG/0.5 ML CONCENTRATE NEB INH SCH ×4 (11:23→21:03)
[2019-06-09] MEDS: NAFCILLIN SOD 1 GM in D5W MINI-BAG PLUS 50 ML IV SCH ×2 (13:12→16:56)
--- NOTE | 2019-06-09 13:53 | IPNPDOC ---
Date Seen The patient was seen on 06/09/19. Progress Note SUBJECTIVE: afebrile no chills. denies sob, cp, pressure tightness, nausea, vomiting, tolerating his diet. still requiring a sitter due to ams at night, aggressive, and . white count decreased. blood cx: MSSA. changed vanco to iv nafcillin. zosyn dc'ed and levaquin for gram neg coverage. ID consult in AM. Echo: no vegetation. EF 65% OBJECTIVE: VITAL SIGNS:PLS SEE Below Generally, AAO to person only. He says he is at home. He is able to state his name. No conversational dyspnea. There is no thyromegaly. No cervical lymphadenopathy. Dry mucous membranes. No jugular venous distention (JVD). Lungs: Diminished crackles at the right base; otherwise, clear in the upper lobe. Heart: S1, S2, irregularly irregular, tachycardic. Abdomen is soft, slightly tender in the right upper quadrant. No rebound or guarding. Positive bowel sounds times four quadrants. Extremities: Have no pitting edema. LABORATORY DATA/MICROBIOLOGY, IMAGING STUDIES: REVIEWED IMAGING STUDIES: Gallbladder ultrasound: Gallbladder sludge with mild thickening of the gallbladder wall with trace pericholecystic fluid. No calculi demonstrated. Clinical correlation to exclude cholecystitis. Right kidney measures 8.4 x 4.4 x 4.3 cm with several renal cysts measuring up to 1.6 cm in the interpolar region. Common bile duct measures 8.5 mm. Echogenic renal parenchyma with small renal size consistent with changes related to chronic renal failure. ASSESSMENT AND PLAN: This is an 84-year-old male, DO NOT RESUSCITATE, trial of intubation, admitted on 05/20/2019 with history of atrial fibrillation on chronic Xarelto, congestive heart failure (CHF) with recurrent bilateral pleural effusions, chronic kidney disease stage III, baseline creatinine of 1.6, atrial fibrillation with sick sinus syndrome and pacemaker placement, peripheral arterial disease, coronary artery disease (CAD), prostate carcinoma (CA) with radiotherapy, renal stones, CVA, carotid artery disease, admitted due to worsening shortness of breath. Was found to have bilateral pleural effusions. Subsequently underwent pleurocentesis and developed a pneumothorax. Chest tube was placed and managed by Dr. Barber Jeffers, and patient was diuresed by his program host.Patient developed acute alcohol withdrawal requiring a sitter and worsening confusion and acute delirium on top of chronic dementia. Patient was doing wel l, appeared to be euvolemic with stable creatinine. He was then placed on torsemide by his program host but developed a fever of 101 on 06/06/2019 with subsequent increase in white count to a peak of 14.2. Repeat imaging studies, CT chest, abdomen, and pelvis, showed slight distention of the gallbladder with episodes of nausea and vomiting at the bedside. Evaluated by general surgeon. Gallbladder ultrasound shows distended gallbladder with mild bladder wall thickening and gallbladder sludging. CT chest showed a right loculated hydrothorax. Evaluated by Dr. Barber Jeffers, thoracic surgery, who did not feel that this fever was due to the hydrothorax. Patient was started on intravenous Zosyn on 06/07/2019 with subsequent improvement in white count and defervescence. He has been afebrile. Urinalysis (UA) was obtained, which showed 1+ bacteria, 4 WBCs. Blood cultures, however, two sets, showed MSSA . Patient was on torsemide and was vomiting and subsequently developed acute on chronic renal failure with a peak creatinine of 2.82. Patient's torsemide was discontinued. He was hypotensive with systolic pressure of 75. Was given intravenous fluids, 500 mL normal saline bolus and 75 mL per hour, and developed atrial fibrillation with rapid ventricular response (RVR) despite Cardizem 240 twice a day. 1. MSSA Bacteremia. rule out line infection. CT chest abd pelvis reviewed, and per thoracic surgery unlikely to be the cause of infection, and per General Surgery, gallbladder unlikely to be etiology. Patient had been given renally dosed vancomycin,. but de-escalated to renally dosed nafcillin. and infectious disease specialist consult on Monday. 2. Distended gallbladder with gallbladder sludging. Very minimal tenderness on exam. Dr. Ortiz, general surgery, has been consulted; did not believe that patient's fever was due to this distended gallbladder. 3. Loculated right hydrothorax. Thoracic surgeon, Dr. Barber Jeffers, has been reconsulted. He was managing patient's chest tube due to hydropneumothorax previously. He did not believe that patient's fever was due to this right loculated hydrothorax. Most likely secondary to bacteremia. 4. Acute delirium on chronic dementia with acute metabolic encephalopathy, multifactorial in nature, due to worsening renal dysfunction due to recent vomiting and volume depletion as well as torsemide being given for patient's bilateral pleural effusions. Cardiovascular Surgical Tech has been consulted for help in management in light of hypotension, acute sepsis with patient's new bacteremia. 5. Atrial fibrillation with rapid ventricular rate. Patient's Cardizem 240 twice a day was insufficient for rate control. Patient will be placed on Cardizem 10 mg drip if blood pressure continues as an issue, and we can manage with continuing with fluid hydration. We will continue with the Cardizem drip. If patient remains hypotensive, he may need intravenous amiodarone or digoxin for rate control. Patient's anticoagulation has been held. He is currently still on apixaban. 6. Recurrent Pleural effusions, improve, but diuretic discontinued due to acute kidney injury. cardiology consulted. 7. Acute Kidney Injury. nephrology consulted for fluid management in light of b/l recurrent effusions VS, I&O, 24H, Fishbone Vital Signs/I&O Vital Signs Date Time Temp Pulse Resp B/P (MAP) Pulse Ox O2 Delivery O2 Flow Rate FiO2 06/09/19 12:00 97.7 101 18 92/58 (69) 98 Room Air 06/09/19 08:00 2.0 I&O- Last 24 Hours up to 6 AM 06/09/19 06:00 Intake Total 800 ml Output Total 725 ml Balance 75 ml Laboratory Data 24H LABS Laboratory Tests 2 06/09/19 05:05: Nucleated Red Blood Cells % (auto) 0.0, Anion Gap 6L, Glomerular Filtration Rate 24.4L, Calcium Level 7.2L, Magnesium Level 1.8 CBC/BMP Laboratory Tests 06/09/19 05:05 Microbiology Microbiology 06/07/19 Respiratory Virus Panel (PCR) ([facility]) - Final, Complete 06/07/19 Blood Culture - Final, Complete Staphylococcus Aureus 06/07/19 Blood Culture - Final, Complete Staphylococcus Aureus LAURA JEAN MD Jun 09, 2019 13:53
--- NOTE | 2019-06-09 14:41 | IPN ---
DATE: 06/09/2019 Mr. Medrano was very confused yesterday but he is evidently a lot more lucid today. He seems to go in and out of periods of lucency. I have been asked to resee him with regard to pleural effusion, which was noted on a CT scan. His vital signs show a maximum temperature (t-max) of 98.4 with a heart rate that ranges between 98 and 107 in atrial fibrillation with a respiratory rate of 16 to 19 without the use of accessory muscles, who is 95% saturated on 2 liters nasal cannula. Blood pressure is ranging between 84/68 to 105/58. His intake and output over the past 24 hours has been recorded as 700 in and 575 out for a positivity of 125 mL. He weighs 72.8 kg today compared to 70.3 kg on 06/05/2019. PHYSICAL EXAMINATION: LUNGS: His lungs show bilateral rhonchi with decreased breath sounds in the right lower hemithorax. Rhonchi are mostly during inspiration, but there is a number in expiration. Percussion note is dull at the very, very base. CARDIAC EXAM: Regular rate and rhythm without murmurs, clicks, gallops or rubs. I cannot feel his point of maximum impulse (PMI). S1, S2 are normal. ABDOMEN: Soft, nontender. Bowel sounds positive. There is no hepatomegaly. No costovertebral angle tenderness. EXTREMITIES: Show no pretibial edema. No calf tenderness. No differential swelling of the upper extremities. SKIN: Warm, dry and perfused without cyanosis or mottling, including that of the nail beds and knees. NECK: Supple. There is no jugular venous distention. No subcutaneous emphysema. Trachea is midline. MOUTH: Shows his mucous membranes to be pink and moist. Lips and commissures without lesions. There is no thrush. EYES: Show his pupils to be equal and reactive. Extraocular motion intact. Sclerae anicteric. NEUROLOGIC: Gross motor and gross sensation intact. PSYCHIATRIC: Shows him to be awake and alert, able to carry on a conversation. LABORATORY DATA: His white count today is 5.9 with a hemoglobin and hematocrit of 9.6 and 30.5 with a platelet count of 175. These are essentially unchanged. Electrolytes show a marginally low potassium at 3.4 with a BUN and creatinine of 34 and 2.66, which has increased over the last few days with a baseline of 1.8. No recent liver functions. His urinalysis on 06/07/2019 was negative for leukocyte esterase, 1+ bacteria. Microbiology shows a blood culture that is growing Staphylococcus aureus, sensitive to everything except penicillin G. He has in fact had two blood cultures drawn at two different times, both growing Staphylococcus aureus. His chest CT done on 06/07/2019 showed a multiloculated pleural effusion. It is small to moderate. There is no pericardial effusion, though the study was done without contrast. IMPRESSION: 1. Recurrent right pleural effusion, drained with a chest tube, now with a number of small loculations. 2. Hyponatremia, resolved. 3. Right heart failure, continuing. 4. Atrial fibrillation. 5. Hypertension. 6. Diastolic heart failure. 7. Chronic renal disease. 8. Sick sinus syndrome, status post pacemaker. 9. Peripheral vascular disease. 10. Cerebral vascular disease. 11. Past history of prostate cancer with radiation therapy. 12. History of renal stones. 13. Cirrhosis based on appearance of his liver on CT. 14. Alcohol abuse and alcohol withdrawal. 15. Positive blood cultures, unknown source. 16. Recurrent intermittent delirium. PLAN/DISCUSSION: Mr. Medrano continues to be in and out of lucidity. His pleural effusion is not significant to drain. I am not sure where his positive blood culture is coming from but they are significant in that he is growing in two separate bottles in two separate time intervals. Echocardiogram does not show any vegetations of his cardiac valves. He has a very small pericardial effusion, which we saw on CT scan a few days ago. He has severe left atrial dilatation and right ventricular systolic hypertension with severe right atrial dilatation. He also has severe tricuspid regurgitation with pulmonary artery pressure of at least 50 mmHg. He has mild mitral regurgitation and no stenosis. His ejection fraction is 60%, but probably has diastolic dysfunction in addition to pulmonary hypertension. I suspect pulmonary hypertension is secondary to chronic obstructive pulmonary disease (COPD). At this point in time, I would not drain his effusions. They are not causing him many problems at this point in time and to approach them for a PleurX catheter would be difficult and not very satisfying. If these effusions do get larger then I would consider placing a PleurX catheter.
[2019-06-09] MEDS: traZODone 50 MG TAB PO SCH (21:32)
[2019-06-09] MEDS: ACETAMINOPHEN 500 MG TAB PO SCH (21:32)
[2019-06-09] MEDS: QUEtiapine FUMARATE 12.5 MG HALF-TAB PO SCH (21:32)
[2019-06-09] MEDS ORDERED: NS 250 ML IV ONE (23:00)
[2019-06-09] MEDS ORDERED: DIGOXIN INJ 0.5 MG/2 ML AMP (J1160) IV ONE (23:00)
[2019-06-10] VITALS (7 sets, daily range): BP systolic 97–118; BP diastolic 57–67
[2019-06-10] MEDS: NS 1,000 ML IV SCH ×2 (00:42→21:09)
[2019-06-10] MEDS: NAFCILLIN SOD 1 GM in D5W MINI-BAG PLUS 50 ML IV SCH ×3 (00:42→12:25)
[2019-06-10 05:47] LABS: HEMATOCRIT 27.5 % (42.0-52.0); HEMOGLOBIN 8.9 g/dl (13.5-17.5); MEAN CORPUSCULAR HEMOGLOBIN 33.1 pg (27.0-33.0); MEAN CORPUSCULAR HGB CONC 32.4 g/dl (32.0-36.5); MEAN CORPUSCULAR VOLUME 102.2 fl (80.0-96.0); PLATELET COUNT, AUTOMATED 182 10^3/uL (150-450); RED BLOOD COUNT 2.69 10^6/uL (4.30-6.10); WHITE BLOOD COUNT 5.1 10^3/uL (4.0-10.0)
[2019-06-10] MEDS: SLF 3 ML SYR IV SCH ×3 (05:53→22:49)
[2019-06-10 06:11] LABS: ALBUMIN 1.4 GM/DL (3.2-5.2); BILIRUBIN,DIRECT 0.2 MG/DL (0.0-0.2); BILIRUBIN,TOTAL 0.6 MG/DL (0.2-1.0); CALCIUM LEVEL 7.4 MG/DL (8.8-10.2); CREATININE FOR GFR 2.2 MG/DL (0.70-1.30); GLOMERULAR FILTRATION RATE 30.4 (>35); MAGNESIUM LEVEL 1.9 MG/DL (1.8-2.4); POTASSIUM SERUM 3.2 MEQ/L (3.5-5.1); TOTAL PROTEIN 4.8 GM/DL (6.4-8.2)
[2019-06-10] MEDS ORDERED: POTASSIUM CHLORIDE 10 MEQ SR TABLET PO ONE (07:45)
[2019-06-10] MEDS ORDERED: AMIODARONE HCL 150 MG in IV 1 EA IV STA (09:08)
[2019-06-10] MEDS: LEVALBUTEROL 1.25 MG/0.5 ML CONCENTRATE NEB INH SCH ×4 (09:10→20:00)
[2019-06-10] MEDS: FOLIC ACID 1 MG TAB PO SCH (09:38)
[2019-06-10] MEDS: THIAMINE 100 MG TAB PO SCH (09:38)
[2019-06-10] MEDS: MULTIVITAMINS/MINERALS THERAP 1 TAB PO SCH (09:38)
[2019-06-10] MEDS: APIXABAN 2.5 MG TAB (ELIQUIS) PO SCH ×2 (09:38→21:08)
[2019-06-10] MEDS: OMEPRAZOLE 20 MG CAP PO SCH (09:38)
[2019-06-10] MEDS: QUEtiapine FUMARATE 12.5 MG HALF-TAB PO SCH ×2 (09:39→21:08)
--- NOTE | 2019-06-10 09:48 | IPN ---
DATE: 06/09/2019 SUBJECTIVE: The patient was seen and examined at the bedside this morning. The patient was transferred out of intensive care unit (ICU) into the progressive care unit. He is much more awake and alert today. He was started on IV vancomycin yesterday for bacteremia. His renal function is also improving, creatinine has come down from 2.8 to 2.6 today. OBJECTIVE: Vital Signs: Temperature is 97.7 degrees Fahrenheit, blood pressure 92/58, pulse is 101, respiratory of 18, saturating 98% on room air. Intake and output: Urine output recorded is 575 mL yesterday 158 mL so far today since overnight. Weight on the bed scale is 72.8 kg. PHYSICAL EXAMINATION: GENERAL: The patient is awake, alert, oriented times two, laying in bed in no apparent distress. HEAD AND NECK EXAM: Extraocular muscles intact. Pupils, equal, round and reactive to light. Mucous membranes are moist. NECK: Neck is supple. There is mild jugular venous distention (JVD). CARDIOVASCULAR: S1, S2, irregular rate. Trace edema of the bilateral lower extremities. RESPIRATORY: Chest is clear to auscultation bilaterally. Bilateral equal air entry. No rales or rhonchi. ABDOMEN: Soft, positive bowel sounds. Nontender. No organomegaly. MUSCULOSKELETAL: No clubbing or cyanosis. Pulses are 2+. REDUCING SYSTEM OPERATOR: No focal deficit. Power is 5/5 in all extremities. He is oriented times two, but otherwise follows commands. LAB REVIEW: CBC showed WBC 5.9, hemoglobin 9.6, platelets of 175. BMP showed sodium 140, potassium 3.4, chloride 103, bicarb 31, BUN 34, creatinine is 2.6. It was 2.8 yesterday. Calcium 7.2, magnesium is 1.8. Microbiology: Blood cultures from June 07, 2019 are growing Staphylococcal aureus which is methicillin sensitive CURRENT INPATIENT MEDICATIONS: The patient's medications were all reviewed by me. He has been switched to nafcillin 1 gram IV very 6 hours. He has also been started on Levaquin 500 mg IV every 24 hours, bisoprolol has been stopped. He continues to be on diltiazem 140 mg by mouth twice a day. IV fluids have been stopped. Zosyn has been stopped. Bisoprolol has been stopped. Seroquel dose has been decreased to 12.5 mg by mouth twice a day. ASSESSMENT/PLAN: 1. Acute kidney injury superimposed on chronic kidney disease. Patient's renal function is improving. Diuretics have been. He was given gentle IV fluid hydration. Continue to monitor urine output. Continue the Galvan for next 24 hours as well. 2. Staphylococcus aureus bacteremia: Vancomycin has been stopped. It is methicillin sensitive staphylococcal aureus. The patient is currently on nafcillin 3. Atrial fibrillation with rapid ventricular rate. He was given amiodarone yesterday. Bisoprolol has been stopped. He continues to be on Cardizem. 4. Delirium tremors: The patient is clinically better today. He is oriented times two. He still has one-to-one watch. He continues to been Ativan and Haldol. The dose is being adjusted by primary team. 5. Hypokalemia: The patient was given oral potassium today.
[2019-06-10] MEDS: LevoFLOXacin IV 500 MG in IV 1 EA IV SCH (10:59)
[2019-06-10] MEDS ORDERED: LORazepam 0.5 MG TAB PO ONE (12:00)
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
[2019-06-10] MEDS: NAFCILLIN SOD 2 GM in D5W MINI-BAG PLUS 50 ML IV SCH ×2 (18:52→22:48)
[2019-06-10] MEDS: ACETAMINOPHEN 500 MG TAB PO SCH (21:07)
[2019-06-10] MEDS: traZODone 50 MG TAB PO SCH (21:08)
--- NOTE | 2019-06-10 21:09 | CR ---
DATE OF CONSULTATION: 06/10/2019 HISTORY OF PRESENT ILLNESS: This is an 84-year-old male with a past medical history of congestive heart failure (CHF) with preserved ejection fraction, atrial fibrillation with a pacemaker, hypertension, and recent recurrent right sided pleural effusion, who first presented to the hospital with recurrent pleural effusions requiring drainage after chest x-ray was done and he was found to have a pneumothorax. The patient also had increased cough and shortness of breath. He denied any fevers or chills. Recent history reports that he has dropped about 20 pounds in the past year and has had decreased appetite. He has had a hospital stay that has been complicated by what was likely alcohol withdrawal and acute kidney injury with tenuous volume status. Today, infectious disease was consulted by primary team, Dr. Espinoza, for the finding of positive blood cultures of Staphylococcus aureus bacteremia. The patient denies any recent fevers, chills, nausea, vomiting, or diarrhea. The son is present at the bedside and reports that the patient has been somewhat confused over this entire hospitalization. He does report that this is baseline for the patient. Otherwise, he has had several IVs placed in the course of this hospitalization and in his confusion pulled a lot of the IVs that he has had. He has not had a central line placed during this hospitalization, and no other source of infection has been found. He has been followed by surgery for possible gallbladder infection, and he has been followed closely by thoracic surgery for his pleural fluid requiring drainage on several occasions. PAST MEDICAL HISTORY: Includes: 1. Chronic kidney disease stage III. 2. Congestive heart failure (CHF) with preserved ejection fraction. 3. Recurrent pleural effusions. 4. Recent right sided pneumothorax. 5. Hypertension. 6. Chronic atrial fibrillation on Xarelto. 7. History of sick sinus syndrome, status post pacemaker. 8. Peripheral vascular disease. 9. Carotid artery disease. 10. History of prostate cancer, status post radiation seeds. 11. History of kidney stones. 12. Hyperlipidemia. 13. Chronic back pain. PAST SURGICAL HISTORY: Significant for: 1. Pacemaker placement. 2. Right carotid endarterectomy. 3. Right knee replacement. SOCIAL HISTORY: Significant for former smoker, quit in 2000. He reported alcohol use but a long time ago. He currently drinks maybe one or two drinks once or twice a week. He is a . FAMILY HISTORY: His mother of colon cancer. REVIEW OF SYSTEMS: As per history of present illness and essentially negative. PHYSICAL EXAMINATION: VITAL SIGNS: Temperature 97.5, heart rate 96, respiratory rate 18, blood pressure 97/60 with a MAP of 72, pulse oximetry 96% on 2 liters nasal cannula. GENERAL: He is lying in bed. He is lying flat. He is calm and cooperative. He is in no acute distress. HEENT: He has moist mucous membranes. Sclerae nonicteric. Head is normocephalic, atraumatic. NECK: Supple with no thyromegaly and no lymphadenopathy. CHEST: He has even chest rise. Site of pacemaker placement is nontender. LUNGS: Clear to auscultation bilaterally with no adventitious breath sounds appreciated. HEART: Irregularly irregular with no discernible murmurs, rubs or gallops. ABDOMEN: Soft and nontender. Nondistended. Positive bowel sounds. No organomegaly and no masses. EXTREMITIES: He has trace pitting edema bilaterally. He has chronic venous stasis changes. His feet are warm and well perfused. He does have a wound on his right garcia, which is covered with a bandage that appears clean, dry and intact. One peripheral IV in left hand. SKIN: He has bruising all over his body, on both arms and on both legs. He has no concerning rashes. LYMPHATICS: He has no enlarged lymph nodes in the posterior auricular, cervical or femoral chains. GENITOURINARY: He has a urinary catheter in place. LABORATORIES: Today: Complete blood count (CBC) demonstrates a white blood cell count of 5.1, hemoglobin is 8.9, hematocrit is 27.5, platelet count is 182. His chemistries demonstrate sodium of 140, potassium 3.2, chloride 105, carbon dioxide 27, BUN 32, creatinine 2.2 from 2.6 yesterday, albumin 1.4. His last pleural fluid drainage was on 05/27/2019 and demonstrated a pH of 7.654, white blood cell count of 1512, red blood cell count of 41, predominance of mononuclear percentage. Microbiology: He had negative blood cultures on admission on 05/20/2019, positive blood cultures, two of them, on 06/07/2019 for Staphylococcus aureus. There were two blood cultures, which was sensitive to everything except for penicillin. He had a respiratory viral panel on 06/07/2019, which was negative. IMAGING: His most recent chest x-ray demonstrates right lower lobe pleural parenchymal changes consistent with atelectasis and effusion, which appears slightly increased when compared to prior. The patient had a chest CT done on 06/07/2019 which demonstrated a loculated right sided hydrothorax and several bubbles of pleural air at the right base as well. Otherwise, within normal limits. ASSESSMENT: This is an 84-year-old male with a history of atrial fibrillation and right sided hydrothorax, status post repeat chest tube drainage of fluid, who was found to have positive blood cultures times two of Staphylococcus aureus. Infectious disease is consulted for antibiotic management and to further elucidate etiology of his bacteremia. PLAN: 1. Complicated Staphylococcus aureus bacteremia. Bacteremia is complicated due to the patient having pacemaker for several years and he has had two positive blood cultures MSSA. We will need to repeat these blood cultures times two, one was done today and one will be done tomorrow to document clearance of bacteremia. He has already been started on Nafcillin but dose needs to be adjusted to 2 grams every 4 hours. 2. Discontinue Levaquin, 3. Would recommend that the patient have a DENISSE (transesophageal echocardiogram) to determine whether or not he has endocarditis. This will need to be done 3 to 5 days after the positive blood culture, so the positive blood culture was on 06/07/2019. He is being followed by Dr. Vee, so this needs to be discussed with both the family and Dr. Vee. Once he has negative blood cultures, the patient will need a peripherally inserted central catheter (PICC) line placed for outpatient antibiotic administration thereafter. Otherwise, monitor the fever curve on the patient. We will continue nafcillin for the time being. RAFFAELE
[2019-06-11 00:06] LABS: BODY FLUID CULTURE Not indicated. (.); LEGIONELLA ANTIGEN URINE Negative (Negative); ORGANISM ID Not indicated. (.); SPECIMEN SOURCE Urine (.); URINE STREP PNEUMONIAE ANTIGEN Negative (Negative)
[2019-06-11] MEDS: NAFCILLIN SOD 2 GM in D5W MINI-BAG PLUS 50 ML IV SCH ×6 (02:46→22:23)
[2019-06-11 04:00] VITALS: BP 135/81
[2019-06-11] MEDS: SLF 3 ML SYR IV SCH ×3 (06:00→22:23)
[2019-06-11 06:34] LABS: HEMATOCRIT 32.1 % (42.0-52.0); HEMOGLOBIN 10.4 g/dl (13.5-17.5); MEAN CORPUSCULAR HEMOGLOBIN 32.8 pg (27.0-33.0); MEAN CORPUSCULAR HGB CONC 32.4 g/dl (32.0-36.5); MEAN CORPUSCULAR VOLUME 101.3 fl (80.0-96.0); PLATELET COUNT, AUTOMATED 235 10^3/uL (150-450); RED BLOOD COUNT 3.17 10^6/uL (4.30-6.10); WHITE BLOOD COUNT 4.8 10^3/uL (4.0-10.0)
[2019-06-11 06:52] LABS: ALBUMIN 1.6 GM/DL (3.2-5.2); BILIRUBIN,DIRECT 0.3 MG/DL (0.0-0.2); BILIRUBIN,TOTAL 0.7 MG/DL (0.2-1.0); C REACTIVE PROTEIN QUANTITATIV 10.7 MG/DL (0.00-0.30); CALCIUM LEVEL 7.8 MG/DL (8.8-10.2); CREATININE FOR GFR 1.81 MG/DL (0.70-1.30); GLOMERULAR FILTRATION RATE 38.1 (>35); MAGNESIUM LEVEL 2.1 MG/DL (1.8-2.4); POTASSIUM SERUM 3.5 MEQ/L (3.5-5.1); TOTAL PROTEIN 5.2 GM/DL (6.4-8.2)
[2019-06-11 06:54] LABS: ERYTHROCYTE SEDIMENTATION RATE 60 mm/hr (0-20)
[2019-06-11] MEDS: LEVALBUTEROL 1.25 MG/0.5 ML CONCENTRATE NEB INH SCH ×4 (07:31→20:00)
--- NOTE | 2019-06-11 07:44 | IPN ---
DATE OF SERVICE: 06/10/2019 SUBJECTIVE: The patient was seen and examined the bedside today morning. He was sitting up in the bed. He is slightly more confused today as compared with yesterday. His renal function continues to improve creatinine is down to 2.2 today. He still has a one-to-one sitter and requiring some doses of Haldol and Ativan for his alcohol withdrawal. OBJECTIVE: Vital signs: Temperature is 97.5 degrees Fahrenheit, blood pressure 100/57, pulse is 106, respiratory of 14, saturating 98% on nasal cannula at 2 liters. Intake and output - urine output recorded is 570 mL yesterday, 200 mL so far today since overnight. Weight in the bed scale is 74.1 kg. PHYSICAL EXAMINATION: General: The patient is awake, alert, oriented times one sitting up in the bed, in no apparent distress. Head and neck exam extraocular muscles intact. Pupils equally round and reactive to light. Mucous membranes are moist. Neck is supple. There is no jugular venous distention (JVD). Cardiovascular: S1, S2, irregular irregular rate along with tachycardia. No edema of the bilateral lower extremities. Respiratory: Chest is clear to auscultation bilaterally. Bilateral equal air entry. No rales or rhonchi. Abdomen: Soft, positive bowel sounds. Nontender. No organomegaly. Musculoskeletal: No clubbing or cyanosis. Pulses are 2+. DIRECTOR DIVERSITY: The patient is oriented times one only. LAB REVIEW: CBC showed WBC 5.1, hemoglobin 8.9, platelets are 182. BMP showed sodium 140, potassium 3.2, chloride 105, bicarb 27, BUN 32, creatinine is 2.2, calcium 7.4, magnesium 1.9, total bilirubin 0.6. Microbiology repeat blood cultures were sent today morning result is pending. CURRENT INPATIENT MEDICATIONS: The patient's medications were all reviewed by myself. IV nafcillin has been increased to 2 grams IV every 4 hourly. He continues to be on normal saline at 50 mL an hour. He was also given a dose of amiodarone 150 mg IV times one dose and was also given Ativan 0.5 mg by mouth times one dose. IV Levaquin has been stopped. ASSESSMENT AND PLAN: 1. Acute kidney injury superimposed on chronic kidney disease, renal function continues to improve. He has an gentle IV fluid hydration. Continue to monitor renal function. 2. Methicillin-sensitive Staphylococcus aureus bacteremia. The patient is currently on IV nafcillin, dose was increased by primary team because of improvement in the renal function. 3. Atrial fibrillation with rapid ventricular rate. The patient was given amiodarone. He is also on Cardizem. The patient was also given a dose of Ativan today morning because of possible association of tachycardia with alcohol withdrawal. 4. Alcohol withdrawal. The patient is clinically slowly improving. He is getting as needed Ativan and Haldol. 5. Hypokalemia. The patient was given a dose of potassium chloride today morning.
[2019-06-11 08:00] VITALS: BP 126/83
[2019-06-11] MEDS: FOLIC ACID 1 MG TAB PO SCH (08:35)
[2019-06-11] MEDS: THIAMINE 100 MG TAB PO SCH (08:35)
[2019-06-11] MEDS: MULTIVITAMINS/MINERALS THERAP 1 TAB PO SCH (08:35)
[2019-06-11] MEDS: APIXABAN 2.5 MG TAB (ELIQUIS) PO SCH ×2 (08:35→20:20)
[2019-06-11] MEDS: OMEPRAZOLE 20 MG CAP PO SCH (08:35)
--- NOTE | 2019-06-11 08:39 | IPN ---
DATE: 06/11/2019 I was asked by the attending physician to perform transesophageal echocardiogram on Mr. Medrano. I came to see him. Unfortunately, the patient is quite disoriented and also he realizes that he is in a hospital but does not know what hospital or what state. He got the year right but he could not recall the President. Overall, I do not believe that his mental status is sufficiently good in order to legally sign consent form, but fortunately his children are coming to see him virtually every day, so I left the form with his nurse and they will call me when they arrive to the hospital. I will go over this process with them over the phone, but I have to say that the patient looks much better than I remember him. I have not seen him for about 10 days or so. He is a lot more lucid. He appears physically stronger and I do appreciate a definite proper improvement in his overall condition. Vital Signs: Blood pressure 135/81. Heart rate has been from high 50s to 130s, atrial fibrillation. Saturation 94% on 2 liters of oxygen. Weight is 76 kg. He is alert, oriented times one. His jugular venous pulse (JVP) does not look high. Lungs are relatively clear. There is still some diminishment of the breath sounds over right base, but I do not appreciate wheezing, crackles or rhonchi. Heart exam reveals irregularly irregular rhythm. No distinct gallop or murmur is appreciated. Abdomen is soft. There is no significant peripheral edema. Neurologically, he moves all four extremities. I do not appreciate any distinct focal weakness. LABORATORIES: Basic metabolic panel is normal but for creatinine 1.8 and calculated GFR 38. Magnesium is 2.1. Albumin is 1.6. CBC: Hemoglobin 10.4, hematocrit 32, platelet count 235,000. Urinalysis is 1+ positive for protein. ASSESSMENT AND PLAN: Mr. Medrano is an 84-year-old man who was originally admitted for pneumothorax after thoracentesis. His clinical course was very complicated and involved withdrawal symptoms from alcohol. It was not known that he was a heavy alcohol drinker at home, and apparently even family was not aware of this. His mental status, even though improving is certainly not quite where it should be yet. His atrial fibrillation is also imperfectly rate controlled. I do believe it is likely that some of it has to do with episode of agitation. I do not believe that we need to change his medications as yet in that regard. He has been chronically anticoagulated. As a new development he had two blood cultures from 06/07/2019 positive for Staphylococcus aureus. It is unfortunately methicillin-sensitive. He has been started on antibiotics and I was asked to perform transesophageal echocardiogram (DENISSE) . I spoke with the patient about this and even though he is in agreement to proceed I do not believe that his mental status is sufficiently clear in order to make the decision by himself and sign appropriate consent. Consequently, I will have get the consent from his family. I tentatively plan to perform the procedure later this week, possibly tomorrow or .
--- NOTE | 2019-06-11 11:30 | IPN ---
DATE OF SERVICE: 06/11/2019 SUBJECTIVE: The patient was seen and examined at the bedside today morning. He still has a one-to-one sitter. He is still slightly disoriented. His renal function continues to improve; creatinine is down to 1.8 now. He continues to be on IV fluids and he still has a Galvan catheter. OBJECTIVE: VITAL SIGNS: Temperature is 97.4 degrees Fahrenheit, blood pressure 126/83, pulse is 135, respiratory rate of 18, saturating 97% on nasal cannula at 2 liters. INTAKE AND OUTPUT: Urine output recorded is 225 mL since overnight. Weight on the bed scale is 76 kg. PHYSICAL EXAMINATION: GENERAL: The patient is awake, alert, oriented times two, lying in bed in no apparent distress. HEAD AND NECK EXAM: Extraocular muscles intact. Pupils equally round and reactive to light. Mucous membranes are moist. Neck is supple. There is no jugular venous distention (JVD). CARDIOVASCULAR: S1, S2, irregularly irregular heart rate, tachycardia. No edema of the bilateral lower extremities. RESPIRATORY: Chest is clear to auscultation bilaterally. Bilateral equal air entry. No rales or rhonchi. ABDOMEN: Soft, positive bowel sounds. Nontender. GENITOURINARY (): He has an indwelling Galvan catheter. MUSCULOSKELETAL: No clubbing or cyanosis. Pulses are 2+. INCOME TAX AUDITOR: The patient is slightly disoriented, otherwise he follows commands and moves all extremities. LAB REVIEW: CBC showed WBC 4.8, hemoglobin 10.4, platelets are 235. BMP showed sodium 144, potassium 3.5, chloride 110, bicarb 27, BUN 26, creatinine is 1.8, calcium 7.8, C-reactive protein 10.7, albumin is 1.6. Microbiology: Repeat blood cultures sent on 06/10 are negative so far. CURRENT INPATIENT MEDICATIONS: The patient's medications were all reviewed by myself. I have stopped the IV fluids. His nafcillin dose was changed to 2 grams IV every 4 hours yesterday. ASSESSMENT AND PLAN: 1. Acute kidney injury superimposed on chronic kidney disease. The patient's renal function is improving. Creatinine continues to trend down. Continue to encourage oral hydration. I am stopping the IV fluids now. 2. Methicillin-sensitive Staphylococcus aureus bacteremia. The patient is currently on IV nafcillin and he is being seen by Infectious Disease. Cardiology has seen him for possible transesophageal echocardiogram (DENISSE). 3. Atrial fibrillation with rapid ventricular rate. The patient still has uncontrolled tachycardia. He continues to be on Cardizem. He is anticoagulated. 4. Alcohol withdrawal. Management with Ativan and Haldol is as per primary team. 5. Hypokalemia. Potassium level has improved with oral potassium. DISPOSITION: The patient's renal function continues to improve. I have stopped the IV fluids. Galvan catheter is being removed. Nephrology service is going to sign off at this moment. Please call nephrology service for any help in the management of this patient during this hospitalization.
[2019-06-11 12:00] VITALS: BP 107/73
[2019-06-11] MEDS: QUEtiapine FUMARATE 12.5 MG HALF-TAB PO SCH ×2 (12:58→20:19)
[2019-06-11 16:00] VITALS: BP 100/68
--- NOTE | 2019-06-11 17:21 | IPNPDOC ---
Subjective Date Seen The patient was seen on 06/11/19. Subjective Chief Complaint/HPI Jason is more alert and calm this morning. Sitter at the bedside, he's not in distress. Has some residual confusion this morning. Objective Physical Examination General Exam: Positive: No Acute Distress, Other ( acute delirium) Eye Exam: Positive: PERRLA, Conjunctiva & lids normal, EOMI; Negative: Sclera icteric ENT Exam: Positive: Atraumatic, Pharynx Normal Neck Exam: Positive: Supple; Negative: JVD, thyromegaly Chest Exam: Positive: Clear to auscultation Heart Exam: Positive: Rate Normal, Irregular Rhythm, Normal S1, Normal S2, Murmurs (systolic best heard in [place] apical region.); Negative: Rubs Telemetry: Positive: Atrial fibrillation Abdomen Exam: Positive: Normal bowel sounds, Soft; Negative: Tenderness, Hepatospenomegaly Extremity Exam: Positive: Normal pulses; Negative: Clubbing, Cyanosis, Edema Skin Exam: Positive: Nl turgor and temperature; Negative: Breakdown, Lesion Psych Exam: Positive: Other (completely disoriented, hallucinating, mumbling) Assessment /Plan Assessment # MSSA bacteremia - repeat b.cx 06/10 and 06/11 are no growth so far - continue naficillin - DENISSE in the next 1-2 days per cardiology note - ID managing abx # YUVAL - improving - nephro note reviewed - discontinue marquez + IVFs # Etoh withdrawal - controlled # Acute metabolic encephalopathy - improved but not at baseline # Afib with RVR - eliquis renal dosing - uptitrate cardizem as tolerated Plan/VTE VTE Prophylaxis Ordered?: Yes VTE Exclusion Mechanical Proph: N/A:VTE Prophy Ordered VTE Exclusion Pharmacological: N/A:VTE Prophy Ordered VS, I&O, 24H, Fishbone Vital Signs/I&O Vital Signs Date Time Temp Pulse Resp B/P (MAP) Pulse Ox O2 Delivery O2 Flow Rate FiO2 06/11/19 16:00 98.3 115 14 100/68 (79) 92 Nasal Cannula 06/11/19 12:00 2.0 I&O- Last 24 Hours up to 6 AM 06/11/19 06:00 Intake Total 850 ml Output Total 675 ml Balance 175 ml Laboratory Data 24H LABS Laboratory Tests 2 06/11/19 05:41: Nucleated Red Blood Cells % (auto) 0.0, Erythrocyte Sedimentation Rate 60H, Anion Gap 7L, Glomerular Filtration Rate 38.1, Calcium Level 7.8L, Magnesium Level 2.1, Total Bilirubin 0.7, Direct Bilirubin 0.3H, Aspartate Amino Transf (AST/SGOT) 18, Alanine Aminotransferase (ALT/SGPT) 17, Alkaline Phosphatase 131H, C-Reactive Protein, Quantitative 10.70H, Total Protein 5.2L, Albumin 1.6L, Albumin/Globulin Ratio 0.44L CBC/BMP Laboratory Tests 06/11/19 05:41 Microbiology Microbiology 06/11/19 Blood Culture, Received Pending 06/10/19 Blood Culture - Preliminary, Resulted No growth after 24 hours . All specim... 06/07/19 Respiratory Virus Panel (PCR) (VIKKI) - Final, Complete 06/07/19 Blood Culture - Final, Complete Staphylococcus Aureus 06/07/19 Blood Culture - Final, Complete Staphylococcus Aureus MITCHELL JC MD Jun 11, 2019 17:18
--- NOTE | 2019-06-11 17:52 | IPN ---
DATE: 06/11/2019 SUBJECTIVE: The patient's family is in the room today, and he is examined at the bedside. The family and the nursing all report that the patient is doing much better in terms of his strength today. There was some report that the patient was somewhat confused earlier today when Dr. Vee went in to consent him for his transesophageal echocardiogram (DENISSE) procedure. The family has come to the consensus that they will consent for the procedure, and all questions regarding his bacteremia were answered. The patient reports he feels well. He is not having any nausea, vomiting, diarrhea, fevers, chills, or night sweats. He is tolerating the antibiotic well, and he is anxious to get this procedure done and to go home. OBJECTIVE: Vital signs: Temperature 98.3, his pulse is 115, his respiratory rate is 14, blood pressure is 100/68 with a mean arterial pressure (MAP) of 79, pulse oximetry is 92% on room air. Overall, he is net positive. He had total urine output of 650 mL yesterday and 375 mL today. PHYSICAL EXAMINATION: GENERAL: He is lying in bed. He is lying flat. He is calm and cooperative, and he is in no acute distress. HEENT: He has moist mucous membranes. His sclerae are nonicteric. Head is normocephalic, atraumatic. Neck is supple with no thyromegaly or lymphadenopathy. CHEST: He has even chest rise. The site of his pacemaker placement is nontender. LUNGS: He is clear to auscultation bilaterally with no adventitious breath sounds appreciated. HEART: Irregularly irregular with no discernible murmurs, rubs, or gallops. ABDOMEN: Soft and nontender, nondistended. Positive bowel sounds. No organomegaly and no masses. EXTREMITIES: He has trace pitting edema bilaterally. He has chronic venous stasis in his legs. His feet are warm and well perfused. He does have a wound on his right garcia, which is covered with a bandage that appears clean, dry, and intact. He has a peripheral IV in his left hand. SKIN: He has bruising on his upper body and his legs. He has no concerning rashes. LYMPHATICS: He has no enlarged lymph nodes in the posterior auricular, cervical, or femoral chains. GENITOURINARY: He no longer has a catheter in place. LABORATORY DATA: Today, his CBC demonstrates a white blood cell count of 4.8, hemoglobin 10.4, hematocrit 32.1, his platelet count is 235. Chemistries demonstrates sodium 144, potassium 3.5, chloride 110, BUN 26, and creatinine of 1.8, down from 2.2 yesterday. His CRP was found to be 10.7. He did have another blood culture drawn yesterday, which is so far negative, and there was one drawn this morning, which is pending. He had no other imaging or investigative studies. ASSESSMENT: This is an 84-year-old male with a history of atrial fibrillation and right- sided hydrothorax, status post repeat chest tube drainage of fluid, who was found to have Staphylococcus aureus bacteremia currently on IV nafcillin. Infectious disease was called for antibiotic management and to further elucidate the etiology of his bacteremia. PLAN: The patient's family and the patient have consented to DENISSE, which will determine whether the patient has endocarditis. The family has been educated on the antibiotic management with or without the diagnosis of endocarditis, including his IV antibiotic regimen. The patient does live at home, so he will need some assistance with antibiotics. Otherwise, the patient is doing well. We will await the results of the DENISSE, and we will continue the current management of nafcillin. RAFFAELE
[2019-06-11 20:00] VITALS: BP 120/64
[2019-06-11] MEDS: traZODone 50 MG TAB PO SCH (20:19)
[2019-06-11] MEDS: ACETAMINOPHEN 500 MG TAB PO SCH (20:20)
[2019-06-11 23:59] VITALS: BP 99/55
[2019-06-12] VITALS (10 sets, daily range): BP systolic 88–146; BP diastolic 55–92; PULSE 120
[2019-06-12] MEDS: NAFCILLIN SOD 2 GM in D5W MINI-BAG PLUS 50 ML IV SCH ×6 (02:16→21:04)
[2019-06-12 06:04] LABS: HEMATOCRIT 29.9 % (42.0-52.0); HEMOGLOBIN 9.7 g/dl (13.5-17.5); MEAN CORPUSCULAR HEMOGLOBIN 32.7 pg (27.0-33.0); MEAN CORPUSCULAR HGB CONC 32.4 g/dl (32.0-36.5); MEAN CORPUSCULAR VOLUME 100.7 fl (80.0-96.0); PLATELET COUNT, AUTOMATED 250 10^3/uL (150-450); RED BLOOD COUNT 2.97 10^6/uL (4.30-6.10); WHITE BLOOD COUNT 5.9 10^3/uL (4.0-10.0)
[2019-06-12] MEDS: SLF 3 ML SYR IV SCH ×3 (06:13→21:04)
[2019-06-12 06:31] LABS: ALBUMIN 1.5 GM/DL (3.2-5.2); BILIRUBIN,DIRECT 0.6 MG/DL (0.0-0.2); BILIRUBIN,TOTAL 1.1 MG/DL (0.2-1.0); CALCIUM LEVEL 7.6 MG/DL (8.8-10.2); CREATININE FOR GFR 1.79 MG/DL (0.70-1.30); GLOMERULAR FILTRATION RATE 38.6 (>35); MAGNESIUM LEVEL 2.1 MG/DL (1.8-2.4); POTASSIUM SERUM 3.3 MEQ/L (3.5-5.1)
[2019-06-12] MEDS: LEVALBUTEROL 1.25 MG/0.5 ML CONCENTRATE NEB INH SCH ×4 (08:00→19:47)
[2019-06-12] MEDS ORDERED: POTASSIUM CHLORIDE 10 MEQ SR TABLET PO ONE (09:00)
[2019-06-12] MEDS: OMEPRAZOLE 20 MG CAP PO SCH (09:05)
[2019-06-12] MEDS: THIAMINE 100 MG TAB PO SCH (09:05)
[2019-06-12] MEDS: QUEtiapine FUMARATE 12.5 MG HALF-TAB PO SCH ×2 (09:05→21:02)
[2019-06-12] MEDS: FOLIC ACID 1 MG TAB PO SCH (09:05)
[2019-06-12] MEDS: APIXABAN 2.5 MG TAB (ELIQUIS) PO SCH ×2 (09:05→21:03)
[2019-06-12] MEDS: MULTIVITAMINS/MINERALS THERAP 1 TAB PO SCH (09:05)
--- NOTE | 2019-06-12 09:15 | IPN ---
DATE OF SERVICE: 06/12/2019 Mr. Medrano is looking yet a little better today. He had a good sleep. He is oriented at least to person and place and apparently he did some ambulation yesterday and overall I think the trend has been favorable. Blood pressure is 120/70, but most of the time is actually lower than that. Heart rate fluctuates between 80s up to 120s. Overall the rate control is not great yet, but it is heading in the right direction. Saturation is 97% on room air. His fluid balance yesterday was recorded slightly positive. Weight is 76.2 kg. He is oriented times two as above. His jugular venous pulse (JVP) does not look high. Lungs are reasonably clear. I do not appreciate any rhonchi, wheezing or crackles. The right base is slightly diminished, but not much. Heart exam reveals irregular rhythm without obvious gallop. There is a pacemaker in the left subclavian pocket. Abdomen soft, nontender. There is no peripheral edema. Neurologic: He is intact. Laboratories: Basic metabolic panel - sodium 144, potassium 3.3, BUN 24, creatinine 1.8, glucose 103, magnesium 2.1, and albumin 1.5. CBC reveals hemoglobin 9.7, hematocrit 29.9 and platelet count 250,000. ASSESSMENT/PLAN: Mr. Medrano is an 84-year-old man who has numerous problems that include chronic renal insufficiency, chronic atrial fibrillation, status post pacemaker placement, besides others. He was originally admitted with pneumothorax after a thoracentesis, but then the hospital stay was complicated by alcohol withdrawal symptoms and now he has Staph aureus bacteremia. I spoke with his daughter, Geovanna, yesterday and they signed appropriate consent for transesophageal echocardiogram. I will tentatively plan on performing the procedure this evening. I will make the patient nothing by mouth (n.p.o.) after 9:00 a.m.. Hopefully, the test will be negative because clinically he is otherwise improving on all grounds and I am hoping that he will return to a meaningful life with some additional rehabilitation. As far as the other concerns are, his atrial fibrillation is not well rate-controlled. His renal function is improving and he is currently only on Cardizem. I do not think that he will tolerate addition of beta-blockers because blood pressure is at times too soft. I am also somewhat reluctant to add digoxin due to renal insufficiency. I am going to continue current management. He does not seem to be bothered by his tachycardia and the average heart rate is probably just slightly over 100. The second issue is that of congestive heart failure. He is not edematous and is certainly not dyspneic. I will keep holding his diuretics as the renal function is slowly recovering.
[2019-06-12] MEDS ORDERED: CETACAINE SPRAY 5GM As Ordered ONE (17:52)
[2019-06-12] MEDS ORDERED: LIDOCAINE VISCOUS 2% SOLN 15ML UDC As Ordered ONE (17:52)
[2019-06-12] MEDS ORDERED: LIDOCAINE 2% INJ 100 MG/5 ML SDV (FOR ANES.) As Ordered ONE (18:21)
[2019-06-12] MEDS ORDERED: propofoL 200 MG/20 ML VIAL As Ordered ONE (18:27)
[2019-06-12] MEDS ORDERED: LR 1,000 ML IV SCH (19:00)
--- NOTE | 2019-06-12 19:33 | IPNPDOC ---
Subjective Date Seen The patient was seen on 06/12/19. Subjective Chief Complaint/HPI less confused this am, awaiting DENISSE later this afternoon. No complaints, HR > 120 but unable to receive Cardizem due to low BP Objective Physical Examination General Exam: Positive: Alert, No Acute Distress, Other ( acute delirium) Eye Exam: Positive: EOMI; Negative: Sclera icteric ENT Exam: Positive: Atraumatic, Pharynx Normal Neck Exam: Positive: Supple; Negative: JVD, thyromegaly Chest Exam: Positive: Clear to auscultation Heart Exam: Positive: Rate Normal, Irregular Rhythm, Normal S1, Normal S2, Murmurs (systolic best heard in [place] apical region.); Negative: Rubs Telemetry: Positive: Atrial fibrillation, Tachycardia Abdomen Exam: Positive: Normal bowel sounds, Soft; Negative: Tenderness, Hepatospenomegaly Extremity Exam: Positive: Normal pulses; Negative: Clubbing, Cyanosis, Edema Skin Exam: Positive: Nl turgor and temperature; Negative: Breakdown, Lesion Psych Exam: Positive: Other (completely disoriented, hallucinating, mumbling) Assessment /Plan Assessment # MSSA bacteremia - repeat b.cx 06/10 and 06/11 are no growth so far - continue naficillin - DENISSE today - ID managing abx # YUVAL - improving # Etoh withdrawal - controlled # Acute metabolic encephalopathy - improved but not at baseline # Afib with RVR - eliquis renal dosing - uptitrate cardizem as tolerated Plan/VTE VTE Prophylaxis Ordered?: Yes VTE Exclusion Mechanical Proph: N/A:VTE Prophy Ordered VTE Exclusion Pharmacological: N/A:VTE Prophy Ordered VS, I&O, 24H, Fishbone Vital Signs/I&O Vital Signs Date Time Temp Pulse Resp B/P (MAP) Pulse Ox O2 Delivery O2 Flow Rate FiO2 06/12/19 19:15 97.9 122 18 111/59 (76) 94 Room Air 06/12/19 19:00 15 I&O- Last 24 Hours up to 6 AM 06/12/19 06:00 Intake Total 1085 ml Output Total 250 ml Balance 835 ml Laboratory Data 24H LABS Laboratory Tests 2 06/12/19 05:23: Nucleated Red Blood Cells % (auto) 0.0, Anion Gap 7L, Glomerular Filtration Rate 38.6, Calcium Level 7.6L, Magnesium Level 2.1, Total Bilirubin 1.1#H, Direct Bilirubin 0.6H, Aspartate Amino Transf (AST/SGOT) 18, Alanine Aminotransferase (ALT/SGPT) 14, Alkaline Phosphatase 124H, Total Protein 5.0L, Albumin 1.5L, Albumin/Globulin Ratio 0.43L CBC/BMP Laboratory Tests 06/12/19 05:23 Microbiology Microbiology 06/11/19 Blood Culture - Preliminary, Resulted No growth after 24 hours . All specim... 06/10/19 Blood Culture - Preliminary, Resulted No Growth after 48 hours. All Specime... 06/07/19 Respiratory Virus Panel (PCR) (VIKKI) - Final, Complete 06/07/19 Blood Culture - Final, Complete Staphylococcus Aureus 06/07/19 Blood Culture - Final, Complete Staphylococcus Aureus MITCHELL JC MD Jun 12, 2019 19:33
[2019-06-12] MEDS: ACETAMINOPHEN 500 MG TAB PO SCH (21:02)
[2019-06-12] MEDS: traZODone 50 MG TAB PO SCH (21:03)
[2019-06-12] MEDS ORDERED: ASPIRIN 81 MG CHEW TABLET PO ONE (22:30)
--- NOTE | 2019-06-12 22:43 | IPNPDOC ---
Text Note Date of Service The patient was seen on 06/12/19. NOTE Paged by nursing staff due to substernal chest pain. Patient had a DENISSE earlier this afternoon. Chest pain is nonradiating, mid sternal, achy and 7/10. Patient says it feels tight, like pressure. EKG ordered: Atrial fib at 113, RBBB with Right axis deviation. Nonspecific QRS changes in V3-V4. No changes to ST segments or T waves. Similar otherwise compared to 06/08/2019. General: Elderly male in no acute distress Lungs: CTA BL Heart: Irregularly irregular with a mildly tachycardic rate. Systolic murmur appreciated, but no rubs or gallops. Pulses: radial 2+ symmetric 324 mg aspirin given 250 cc NS bolus given due to systolic BP 88 Troponins ordered (Trop <0.02, CK 50), with repeats/repeat EKG at 0230 on 06/13/19 will continue to follow VS,Fishbone, I+O VS, Fishbone, I+O Laboratory Tests 06/12/19 05:23 Vital Signs Date Time Temp Pulse Resp B/P (MAP) Pulse Ox O2 Delivery O2 Flow Rate FiO2 06/12/19 21:03 114 146/84 06/12/19 19:15 97.9 18 94 Room Air 06/12/19 19:00 15 I&O- Last 24 Hours up to 6 AM 06/12/19 06:00 Intake Total 1085 ml Output Total 250 ml Balance 835 ml GME ATTESTATION GME ATTESTATION My faculty preceptor for this patient encounter was physically present during the encounter and was fully available. All aspects of the patient interview, examination, medical decision making process, and medical care plan development were reviewed and approved by the faculty preceptor. The faculty preceptor is aware and concurs with the plan as stated in the body of this note and will attest to such by his/her cosignature. BYRON DURANT D.O. Jun 12, 2019 22:43
[2019-06-12] MEDS ORDERED: NS 250 ML IV ONE (22:45)
[2019-06-12 23:48] LABS: CK-MB VALUE MASS 1.3 NG/ML (<3.6); MB/CK RELATIVE INDEX 2.6 (< OR =4)
[2019-06-12 23:49] LABS: TROPONIN I 0.02 NG/ML (< 0.10)
[2019-06-13 00:05] VITALS: BP 102/64
[2019-06-13] MEDS: NAFCILLIN SOD 2 GM in D5W MINI-BAG PLUS 50 ML IV SCH ×6 (01:17→21:31)
[2019-06-13 03:22] LABS: CK-MB VALUE MASS 1.1 NG/ML (<3.6); CPK CREATINE PHOSPHOKINASE 46 U/L (39-308); MB/CK RELATIVE INDEX 2.39 (< OR =4); TROPONIN I < 0.02 NG/ML (< 0.10)
[2019-06-13 04:00] VITALS: BP 110/66
[2019-06-13] MEDS: SLF 3 ML SYR IV SCH ×3 (05:24→21:31)
[2019-06-13 05:33] LABS: HEMOGLOBIN 9.9 g/dl (13.5-17.5); MEAN CORPUSCULAR HEMOGLOBIN 33.1 pg (27.0-33.0); MEAN CORPUSCULAR HGB CONC 34.1 g/dl (32.0-36.5); PLATELET COUNT, AUTOMATED 262 10^3/uL (150-450); RED BLOOD COUNT 2.99 10^6/uL (4.30-6.10); WHITE BLOOD COUNT 5.4 10^3/uL (4.0-10.0)
--- NOTE | 2019-06-13 05:47 | ECGEPIP ---
[facility] Test Date: 2019-06-12 Pat Name: ESTHER BERNARDO Department: Room: [place] [address] Gender: Male Health Inspector: JOVITA : 1935 Requested By: BYRON DURANT D.O. Order Number: [id number] Reading MD: Linda Ackerman Measurements Intervals [place] Rate: 113 P: [place]: 0 QRS: 267 QRSD: 150 T: 24 QT: 350 QTc: 480 Interpretive Statements ATRIAL FIBRILLATION WITH RAPID VENTRICULAR RESPONSE RIGHT BUNDLE BRANCH BLOCK Left anterior fascicular block POSSIBLE OLD IWMI LOW VOLTAGE LIMB COPD PATTERN STTW ABN WITH MILD ST DEPRESSION NEW COMPARED TO 06/08/19 Electronically Signed on 06-13-2019 5:46:35 EST by Linda Ackerman
[2019-06-13 06:05] LABS: BLOOD UREA NITROGEN 25 MG/DL (7-18); CALCIUM LEVEL 7.6 MG/DL (8.8-10.2); CARBON DIOXIDE LEVEL 28 MEQ/L (21-32); CHLORIDE LEVEL 112 MEQ/L (98-107); CK-MB VALUE MASS < 1.0 NG/ML (<3.6); CPK CREATINE PHOSPHOKINASE 41 U/L (39-308); CREATININE FOR GFR 1.87 MG/DL (0.70-1.30); GLOMERULAR FILTRATION RATE 36.7 (>35); GLUCOSE, FASTING 96 MG/DL (70-100); MAGNESIUM LEVEL 2.3 MG/DL (1.8-2.4); MB/CK RELATIVE INDEX 2.44 (< OR =4); SODIUM LEVEL 144 MEQ/L (136-145); TROPONIN I < 0.02 NG/ML (< 0.10)
--- NOTE | 2019-06-13 07:41 | T-ECHO ---
TRANSESOPHAGEAL ECHOCARDIOGRAM DATE OF PROCEDURE: 06/12/2019 REFERRING PHYSICIAN: Dr. Isaac Garcia. INDICATION: Staphylococcus aureus bacteremia suspicion for bacterial endocarditis. PROCEDURE: Transesophageal echocardiogram. ANESTHESIOLOGY: Waqar Garcia MD BRIEF HISTORY: Mr Medrano is an 84-year-old man who was originally admitted for management of pneumothorax that developed as a complication of thoracenteses but it led to very prolonged and complicated hospital course that included trouble with mental status most likely related to alcohol withdrawal symptoms. He also had trouble with congestive heart failure, poor oral intake. But as of recently, has been improving but unfortunately his blood culture was positive for methicillin sensitive Staphylococcus aureus (MSSA) on two separate occasions. Consequently, I was asked by infectious disease (ID) service to perform transesophageal echocardiogram. The nature of the procedure was discussed with the patient. But because I did not feel that he was sufficiently oriented to be able to make decisions for himself, the consent was obtained from his daughter, Geovanna who is a nurse practitioner. Procedure was performed in the operating room. DESCRIPTION OF PROCEDURE: The patient was brought to operating room (OR) in a fasting condition. After appropriate time-out was taken and all the monitors were applied his posterior pharynx was anesthetized using viscous lidocaine and Cetacaine spray. He was then positioned in left lateral decubital position. Bite block was applied. The probe was introduced into esophagus and later stomach without difficulty after appropriate sedation was administered by anesthesia. After appropriate images were taken it was withdrawn. There were no immediate complications and the patient tolerated the procedure well. FINDINGS: Left ventricle has normal contractility, I estimate ejection fraction (EF) around 60-65%. Right ventricle appears dilated but normally contractile. There is severe biatrial enlargement. Left atrial appendage is very large but free of thrombus. The flow inside the appendage is consistent with underlying atrial fibrillation. There is normal flow in left lower pulmonary veins. Right-sided pulmonary veins were poorly visualized. Atrial septum is intact based on color Doppler imaging and two-dimensional imaging. Aortic valve is tricuspid. It is fairly heavily sclerotic but mobility is preserved. There is mild insufficiency of the valve. There is a small mobile echodensity on the cusp of the aortic valve that moves with systole and diastole. It does appear most consistent with excrescences of Lambl rather than true bacterial vegetation, but it certainly cannot be ruled out. Mitral valve is heavily thickened and there are very prominent degenerative abnormalities involving in both anterior and posterior mitral leaflet but no mobile vegetation is seen. By color Doppler imaging, there is mild or [id number] mitral insufficiency. Tricuspid valve has severe insufficiency. No apparent vegetation was seen. Pulmonic valve was reasonably well seen and appears normal. Mild insufficiency of the valve is noted. There are an echo artifacts consistent with pacemaker leads in right-sided chambers. No visualized thrombi are seen on the leads. Trivial pericardial effusion is noted. There is very prominent atherosclerosis of aortic arch and descending aorta but no obvious thrombi or ulcerations are noted. CONCLUSION: 1. Preserved left ventricular systolic function. 2. Dilated but normally contractile right ventricle. 3. Severe biatrial enlargement. 4. Left atrial appendage is large and free of thrombi. 5. Intact interatrial septum based on 2D and color Doppler imaging. 6. No evidence for vegetations on pacemaker electrodes. 7. Severe tricuspid insufficiency, moderate pulmonary hypertension. 8. Mild mitral insufficiency. 9. Prominent aortic sclerosis with no significant stenosis and mild insufficiency. Small echodensity is of the cusp of aortic valve that could represent vegetations even though the appearance is more consistent with thrombotic vegetations ("excrescences of Lambl"). 10. Very prominent degenerative abnormalities of mitral valve with no obvious vegetations and mild to moderate mitral insufficiency. 11. Very prominent atherosclerosis in the thoracic aorta and aortic arch. COMMENT: I do not believe that the study is completely conclusive. In this setting, I believe that the patient needs to be treated as if he had endocarditis. One might consider repeating transesophageal echocardiogram in 1 or 2 weeks. RAFFAELE
[2019-06-13] MEDS: LEVALBUTEROL 1.25 MG/0.5 ML CONCENTRATE NEB INH SCH ×4 (07:44→20:00)
[2019-06-13 08:00] VITALS: BP 113/80
[2019-06-13] MEDS: THIAMINE 100 MG TAB PO SCH (08:25)
[2019-06-13] MEDS: FOLIC ACID 1 MG TAB PO SCH (08:26)
[2019-06-13] MEDS: OMEPRAZOLE 20 MG CAP PO SCH (08:26)
[2019-06-13] MEDS: APIXABAN 2.5 MG TAB (ELIQUIS) PO SCH ×2 (08:26→20:05)
[2019-06-13] MEDS: QUEtiapine FUMARATE 12.5 MG HALF-TAB PO SCH ×2 (08:27→20:05)
[2019-06-13] MEDS: MULTIVITAMINS/MINERALS THERAP 1 TAB PO SCH (08:27)
--- NOTE | 2019-06-13 09:19 | IPN ---
DATE: 06/13/2019 Mr. Medrano had transesophageal echocardiogram (DENISSE) yesterday. It revealed small vegetation on the aortic valve. It looks to me more like excrescences of Lambl rather than true bacterial endocarditis, but nevertheless in this setting I think we will have to treat it as such. Overall preserved left ventricle systolic function. There was severe biatrial enlargement. No vegetations were seen on pacemaker leads. Vital Signs: Blood pressure 113/80. Heart rate has been variable from 90s to 120s. He is afebrile. Saturation 94% on room air. His fluid balance yesterday was slightly positive. Weight has not been recorded this morning yet. This morning, he is alert and oriented times three. He does not seem to be in any distress. His jugular venous pulse (JVP) does not look high. Lungs are reasonably clear with the exception of right base. Heart exam reveals irregular rhythm without mild tachycardia. I do not appreciate any distinct diastolic murmur, even though there is systolic murmur at the apex. Weight has not been recorded yet. There is no peripheral edema. Abdomen is soft. Neurologically, he is mostly intact. LABORATORIES: Hemoglobin 9.9, hematocrit 29, platelet count 262,000. Basic metabolic panel - sodium 144, potassium 4.0, BUN 25, creatinine 1.9, for a GFR of 37, and glucose 96. Several sets of cardiac enzymes were drawn and were negative. ASSESSMENT/PLAN: The patient is a pleasant, 84-year-old man who has had chronic atrial fibrillation and is status post pacemaker placement and also chronic diastolic congestive heart failure with recurrent right sided pleural effusion. It is probably transudative even though fluid analysis is somewhat borderline. Unfortunately, as an additional complication after he had trouble with alcohol withdrawal earlier, is the finding of methicillin-sensitive Staphylococcus in the blood stream. The transesophageal echocardiogram yesterday revealed small vegetation of the aortic valve which in my opinion is not convincingly bacterial, but in this clinical setting will probably have to treat him as such. The management of this issue is per infectious disease (ID). As far as the atrial fibrillation is concerned, he is still not well rate controlled. His blood pressure is often soft. I am not convinced that he would tolerate addition of beta olegario. Consequently, I am going to give him digoxin, even though it is problematic in the setting of renal insufficiency, but will load him with only a 0.5 mg and then give him lesser than usual dose. We do not need much more slowing, but I am not comfortable leaving his heart rate as it is.
[2019-06-13] MEDS: DIGOXIN 0.25 MG TAB PO SCH ×2 (09:31→16:31)
--- NOTE | 2019-06-13 10:02 | ECGEPIP ---
[facility] Test Date: 2019-06-13 Pat Name: ESTHER BERNARDO Department: Room: [place] [address] Gender: Male Machine Stapler: JANELLE : 1935 Requested By: BYRON DURANT D.O. Order Number: [id number] Reading MD: Linda Ackerman Measurements Intervals [place] Rate: 117 P: [place]: 0 QRS: -88 QRSD: 149 T: 27 QT: 376 QTc: 527 Interpretive Statements ATRIAL FIBRILLATION WITH RAPID VENTRICULAR RESPONSE RIGHT BUNDLE BRANCH BLOCK LEFT ANTERIOR FASCICULAR BLOCK ECTOPIC BEAT NEW POSSIBLE OLD IWMI COPD PATTERN ST DEPRESSION AGAIN NOTED Electronically Signed on 06-13-2019 10:02:30 EST by Linda Ackerman
[2019-06-13 12:00] VITALS: BP 135/94
[2019-06-13 16:00] VITALS: BP 131/71
--- NOTE | 2019-06-13 16:03 | IPNPDOC ---
Subjective Date Seen The patient was seen on 06/13/19. Subjective Chief Complaint/HPI Jason is well, his confusion continues to improve. He's eager to leave the hospital. He's asymptomatic with his tachycardia Objective Physical Examination General Exam: Positive: Alert, No Acute Distress, Other ( acute delirium) Eye Exam: Positive: EOMI; Negative: Sclera icteric ENT Exam: Positive: Atraumatic, Pharynx Normal Neck Exam: Positive: Supple; Negative: JVD, thyromegaly Chest Exam: Positive: Clear to auscultation Heart Exam: Positive: Rate Normal, Irregular Rhythm, Normal S1, Normal S2, Murmurs (systolic best heard in [place] apical region.); Negative: Rubs Telemetry: Positive: Atrial fibrillation, Tachycardia Abdomen Exam: Positive: Normal bowel sounds, Soft; Negative: Tenderness, Hepatospenomegaly Extremity Exam: Positive: Normal pulses; Negative: Clubbing, Cyanosis, Edema Skin Exam: Positive: Nl turgor and temperature; Negative: Breakdown, Lesion Psych Exam: Positive: Other (completely disoriented, hallucinating, mumbling) Assessment /Plan Assessment # MSSA bacteremia - repeat b.cx 06/10 and 06/11 are no growth to date - continue naficillin - s/p DENISSE (06/12) with ? aortic valve vegetation vs. excrescence of lambl - ID managing abx # YUVAL - improving # Etoh withdrawal - controlled # Acute metabolic encephalopathy - improved but not at baseline # Afib with RVR - eliquis renal dosing - up titrate cardizem as tolerated - started on low dose digoxin today Dispo: will need placement Plan/VTE VTE Prophylaxis Ordered?: Yes VTE Exclusion Mechanical Proph: N/A:VTE Prophy Ordered VTE Exclusion Pharmacological: N/A:VTE Prophy Ordered VS, I&O, 24H, Fishbone Vital Signs/I&O Vital Signs Date Time Temp Pulse Resp B/P (MAP) Pulse Ox O2 Delivery O2 Flow Rate FiO2 06/13/19 12:00 97.6 129 20 135/94 (108) 96 Room Air 06/13/19 04:00 2.0 I&O- Last 24 Hours up to 6 AM 06/13/19 05:59 Intake Total 790 ml Output Total 200 ml Balance 590 ml Laboratory Data 24H LABS Laboratory Tests 2 06/12/19 22:25: Total Creatine Kinase 50, Creatine Kinase MB 1.3, Creatine Kinase MB Relative Index 2.60, Troponin I 0.02 06/13/19 02:36: Total Creatine Kinase 46, Creatine Kinase MB 1.1, Creatine Kinase MB Relative Index 2.39, Troponin I < 0.02 06/13/19 05:21: Total Creatine Kinase 41, Creatine Kinase MB < 1.0, Creatine Kinase MB Relative Index 2.44, Troponin I < 0.02, Nucleated Red Blood Cells % (auto) 0.0, Anion Gap 4L, Glomerular Filtration Rate 36.7, Calcium Level 7.6L, Magnesium Level 2.3 CBC/BMP Laboratory Tests 06/13/19 05:21 Microbiology Microbiology 06/11/19 Blood Culture - Preliminary, Resulted No Growth after 48 hours. All Specime... 06/10/19 Blood Culture - Preliminary, Resulted No Growth after 72 hours. All specime... 06/07/19 Respiratory Virus Panel (PCR) ([facility]) - Final, Complete 06/07/19 Blood Culture - Final, Complete Staphylococcus Aureus 06/07/19 Blood Culture - Final, Complete Staphylococcus Aureus MITCHELL JC MD Jun 13, 2019 16:03
[2019-06-13 19:28] VITALS: BP 111/76
[2019-06-13] MEDS: ACETAMINOPHEN 500 MG TAB PO SCH (20:05)
[2019-06-13] MEDS: traZODone 50 MG TAB PO SCH (20:05)
[2019-06-14] VITALS: BP 123/76
[2019-06-14] MEDS: DIGOXIN 0.25 MG TAB PO SCH (00:34)
[2019-06-14] MEDS: NAFCILLIN SOD 2 GM in D5W MINI-BAG PLUS 50 ML IV SCH ×6 (02:04→21:50)
[2019-06-14 04:00] VITALS: BP 129/82
[2019-06-14 05:38] LABS: MEAN CORPUSCULAR HEMOGLOBIN 33.6 pg (27.0-33.0); MEAN CORPUSCULAR HGB CONC 34.5 g/dl (32.0-36.5); MEAN CORPUSCULAR VOLUME 97.3 fl (80.0-96.0); PLATELET COUNT, AUTOMATED 263 10^3/uL (150-450); RED BLOOD COUNT 2.98 10^6/uL (4.30-6.10); WHITE BLOOD COUNT 4.8 10^3/uL (4.0-10.0)
[2019-06-14] MEDS: SLF 3 ML SYR IV SCH ×3 (05:47→21:51)
[2019-06-14 05:58] LABS: CALCIUM LEVEL 7.4 MG/DL (8.8-10.2); CREATININE FOR GFR 2.05 MG/DL (0.70-1.30); POTASSIUM SERUM 3.4 MEQ/L (3.5-5.1)
[2019-06-14] MEDS: LEVALBUTEROL 1.25 MG/0.5 ML CONCENTRATE NEB INH SCH ×4 (07:27→21:07)
[2019-06-14] MEDS ORDERED: POTASSIUM CHLORIDE 10 MEQ SR TABLET PO ONE (07:45)
[2019-06-14 08:00] VITALS: BP 137/88
[2019-06-14] MEDS: FOLIC ACID 1 MG TAB PO SCH (08:05)
[2019-06-14] MEDS: MULTIVITAMINS/MINERALS THERAP 1 TAB PO SCH (08:06)
[2019-06-14] MEDS: APIXABAN 2.5 MG TAB (ELIQUIS) PO SCH ×2 (08:06→20:44)
[2019-06-14] MEDS: THIAMINE 100 MG TAB PO SCH (08:06)
[2019-06-14] MEDS: OMEPRAZOLE 20 MG CAP PO SCH (08:06)
[2019-06-14] MEDS ORDERED: DIGOXIN 0.125 MG TAB PO ONE (09:00)
--- NOTE | 2019-06-14 09:25 | IPN ---
DATE: 06/14/2019 Mr. Medrano is doing better. His mental status certainly seems to be improving. He denies any dyspnea, chest pain or palpitations. Unfortunately, telemetry continues to reveal poorly controlled rate controlled atrial fibrillation. His heart rate is frequently in 230s and the average heart rate is certainly over 100. Vital signs: Otherwise, blood pressure 123/71, heart rate as above. He is afebrile. Saturation 97% on 2 liters of oxygen. Fluid balance yesterday was recorded as approximately 270 positive. Weight 77.9 kg. His jugular venous pressure does not look high. Lungs: Again revealed somewhat diminished breath sounds over right base, left is clear. No wheezing or crackles. Heart: Exam reveals irregularly irregular rhythm. I do not appreciate any gallop or rub. Abdomen is soft. No peripheral edema. Neurologically, he is alert and oriented and appropriate. LABORATORY CBC: WBC count 4.8, hemoglobin 10, hematocrit 29, platelet count 263,000. Basic metabolic panel: Sodium 144, potassium 3.4, BUN 25, creatinine 2.0 and glucose 102. ASSESSMENT/PLAN Mr. Medrano is an 84-year-old man who was originally admitted for pneumothorax complicating thoracenteses but then his hospital stay was further complicated by development of alcohol withdrawal syndrome. It took a long time to get under control and eventually, as another complication, showed methicillin-sensitive bacteremia. DENISSE 2 days ago revealed small vegetation of the aortic valve. Consequently, he will need probably 6-week treatment with antibiotics. From cardiac perspective, his seems to be doing quite well but I am not happy with his rate control of atrial fibrillation. I will try to replace Cardizem with atenolol as a better rate controlling agent as a trial I loaded him with 0.75 mg of digoxin yesterday and I will give him another 0.125 mg today. We will obtain level tomorrow and he probably will need a long-term dose of 0.125 mg every other day or so. The second issue that I am concerned about is slowly progressive creatinine elevation. I am not quite sure what the etiology is, suspect antibiotic. So far, he does not seem to be volume overloaded but at some point we will probably have to restart his diuretics. Even though his condition is improving, he certainly remains quite ill and prognosis remains uncertain.
[2019-06-14] MEDS: atenoloL 50 MG TAB PO SCH (10:05)
--- NOTE | 2019-06-14 10:53 | IPN ---
DATE: 06/13/2019 SUBJECTIVE: The patient's family is at the bedside today with his two daughters, one of them from [place] who is a nurse. The findings of the transesophageal echocardiogram were discussed with the patient in regard to his need for about 6 weeks of antibiotics. We explained to him that he would need a peripherally inserted central catheter (PICC) line placed and that he would likely need to go to some type of rehabilitation facility as he would need help with administering his antibiotics. The patient was under the understanding that he could go home alone. The family is in agreement that he will need some help on discharge. It is noted that the patient did have chest pain last night, which with normal findings on EKG and cardiac markers, he says that his chest pain is now resolved. All questions were answered of the family in regard to his treatment at this time. OBJECTIVE: VITAL SIGNS: Temperature 97.3, pulse 124, respiratory rate of 20, blood pressure 131/71, pulse oximetry 93% on room air. GENERAL: He is lying in bed, he is lying flat. He is calm and cooperative. He is in no acute distress. HEENT: He has moist mucous membranes. His sclerae are nonicteric. Head is normocephalic, atraumatic. NECK: Supple with no thyromegaly and no lymphadenopathy. CHEST: He has even chest rise. The site of his pacemaker placement is nontender. LUNGS: Clear to auscultation bilaterally with no adventitious breath sounds appreciated. HEART: Irregularly irregular, very rapid. No discernible murmurs, rubs or gallops. ABDOMEN: Soft, nontender, nondistended. He has positive bowel sounds. No organomegaly and no masses. EXTREMITIES: He has bandages on his right elbow and on his left leg. His feet are warm and well perfused. He has chronic venous stasis in his legs. He has no clubbing, cyanosis or edema. LYMPHATICS: He has no enlarged lymph nodes in the posterior auricular, cervical and femoral chains. PSYCHIATRIC: He is awake, alert, and oriented times two. It does not seem that he is oriented to time, although he can name all the people in the room and he can interact normally and he has a normal mood and normal affect. LABORATORIES: His CBC demonstrates a white blood cell count of 5.4, hemoglobin 9.9, hematocrit of 29, platelet count of 262. Chemistries demonstrate a sodium of 144, potassium 4.0, chloride 112, BUN 25, creatinine 1.87. His trended troponins from overnight were negative. No other laboratories or imaging. 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 the patient will need to be treated with nafcillin or cefazolin IV for a total of 6 weeks. We recommend that this patient get a PICC line for ease of administration of the antibiotic and this is to be considered when determining placement for the patient and whether there is a rehabilitation facility or a long term. RAFFAELE
[2019-06-14 12:00] VITALS: BP 121/63
[2019-06-14] MEDS: ACETAMINOPHEN TAB 650MG DOSE (2X325MG) PO PRN (13:21)
--- NOTE | 2019-06-14 13:43 | IPNPDOC ---
Subjective Date Seen The patient was seen on 06/14/19. Subjective Chief Complaint/HPI HR and bloodpressure are better today. He is mental status continues to improve. UOP 550 ml Objective Physical Examination General Exam: Positive: Alert, No Acute Distress, Other ( acute delirium) Eye Exam: Positive: EOMI; Negative: Sclera icteric ENT Exam: Positive: Atraumatic, Mucous membr. moist/pink Neck Exam: Positive: Supple; Negative: JVD, thyromegaly Chest Exam: Positive: Clear to auscultation Heart Exam: Positive: Rate Normal, Irregular Rhythm, Normal S1, Normal S2, Murm urs (systolic best heard in the apical region.); Negative: Rubs Telemetry: Positive: Atrial fibrillation, Tachycardia Abdomen Exam: Positive: Normal bowel sounds, Soft; Negative: Tenderness, Hepatospenomegaly Extremity Exam: Positive: Normal pulses; Negative: Clubbing, Cyanosis, Edema Skin Exam: Positive: Nl turgor and temperature; Negative: Breakdown, Lesion Psych Exam: Positive: Mental status NL, Mood NL, Other (oriented to place and person) Assessment /Plan Assessment # MSSA bacteremia - repeat b.cx 06/10 and 06/11 are no growth to date - continue naficillin - s/p DENISSE (06/12) with ? aortic valve vegetation vs. excrescence of lambl - ID recommending 6 weeks IV abx, picc line to be placed # YUVAL - initially improved, but appears to have plateaued - likely due to IV abx, nephrology has signed off case, but if continues to trend higher will ask to see again # Etoh withdrawal - controlled # Acute metabolic encephalopathy - improved but not at baseline - can stop seroquel # Afib with RVR - eliquis renal dosing - cardiology managing (digoxin load stopped, switiched from cardizem to atenolol) Dispo: medically stable for placement once HR controlled Plan/VTE VTE Prophylaxis Ordered?: Yes VTE Exclusion Mechanical Proph: N/A:VTE Prophy Ordered VTE Exclusion Pharmacological: N/A:VTE Prophy Ordered VS, I&O, 24H, Fishbone Vital Signs/I&O Vital Signs Date Time Temp Pulse Resp B/P (MAP) Pulse Ox O2 Delivery O2 Flow Rate FiO2 06/14/19 12:00 97.4 77 16 121/63 (82) 98 Room Air 06/14/19 04:00 2.0 I&O- Last 24 Hours up to 6 AM 06/14/19 06:00 Intake Total 870 ml Output Total 400 ml Balance 470 ml Laboratory Data 24H LABS Laboratory Tests 2 06/14/19 05:16: Nucleated Red Blood Cells % (auto) 0.0, Anion Gap 6L, Glomerular Filtration Rate 33.0L, Calcium Level 7.4L CBC/BMP Laboratory Tests 06/14/19 05:16 Microbiology Microbiology 06/11/19 Blood Culture - Preliminary, Resulted No Growth after 72 hours. All specime... 06/10/19 Blood Culture - Preliminary, Resulted No Growth after 72 hours. All specime... 06/07/19 Respiratory Virus Panel (PCR) ([facility]) - Final, Complete 06/07/19 Blood Culture - Final, Complete Staphylococcus Aureus 06/07/19 Blood Culture - Final, Complete Staphylococcus Aureus MITCHELL JC MD Jun 14, 2019 13:43
[2019-06-14 16:00] VITALS: BP 118/64
[2019-06-14] MEDS ORDERED: LIDOCAINE 1% MDV 20ML VIAL As Ordered ONE ×2 (16:46→16:54)
[2019-06-14 20:00] VITALS: BP 95/55
[2019-06-14] MEDS: traZODone 100 MG TAB PO SCH (20:44)
[2019-06-14] MEDS: ACETAMINOPHEN 500 MG TAB PO SCH (20:46)
[2019-06-15] VITALS (9 sets, daily range): BP systolic 70–104; BP diastolic 40–61
[2019-06-15] MEDS: NAFCILLIN SOD 2 GM in D5W MINI-BAG PLUS 50 ML IV SCH ×5 (01:45→22:00)
[2019-06-15] MEDS: SODIUM CHLORIDE 0.9% INJ 10 ML SYR IV SCH ×2 (05:49→17:23)
[2019-06-15] MEDS: SLF 3 ML SYR IV SCH ×3 (05:49→22:00)
[2019-06-15 06:43] LABS: CALCIUM LEVEL 7.3 MG/DL (8.8-10.2); CREATININE FOR GFR 2.2 MG/DL (0.70-1.30); DIGOXIN LEVEL 1.4 NG/ML (0.5-2.0); GLOMERULAR FILTRATION RATE 30.4 (>35)
[2019-06-15] MEDS: LEVALBUTEROL 1.25 MG/0.5 ML CONCENTRATE NEB INH SCH ×4 (08:00→20:48)
[2019-06-15] MEDS: atenoloL 50 MG TAB PO SCH ×2 (09:00→20:40)
--- NOTE | 2019-06-15 09:16 | IPN ---
DATE OF SERVICE: 06/14/2019 Jason seems to be doing well today. He has no new complaints. No nausea, vomiting, or diarrhea. Nafcillin 2 grams intravenous (IV) every 4 hours. Currently day #5. LABORATORIES: White count is 4.8, hemoglobin 10, hematocrit 29, platelets 263. Sodium 144, potassium 3.4, chloride 110, bicarbonate 28, BUN 25, creatinine 2.05, glucose 102, calcium 7.4. Heart: Normal S1, S2 irregularly irregular. Systolic ejection murmur 2/6 at the right lower sternal border. Lungs: Clear. No wheezes, rales, or rhonchi. Abdomen: Soft, nontender. No hepatosplenomegaly. Extremities: No clubbing, cyanosis, or edema. No rashes noted. IMPRESSION: 1. 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 The patient will need to be treated with 6 weeks of intravenous (IV) antibiotics. Currently day #5 of appropriate antibiotics. 2. Atrial fibrillation. Better controlled. 3. Congestive heart failure (CHF), doing better. PLAN: Continue with IV nafcillin. End of treatment would be 07/22/2019, total of 6 weeks from negative culture. If the patient is transferred to rehabilitation unit or acute rehabilitation, we could de-escalate him to cefazolin 2 grams IV every 8 hours if his glomerular filtration rate (GFR) is over 35 or every 12 hours if it is less than 35. At this point, would continue with IV nafcillin until he is ready for discharge to a alf or acute rehabilitation. Monitor complete blood count (CBC), erythrocyte sedimentation rate (ESR), C-reactive protein (CRP), basic weekly. MTDD
--- NOTE | 2019-06-15 10:04 | REP ---
Procedure: PICC line insertion with Ju The procedure was performed under the general supervision of Dr. Weems. The risks and benefits of the procedure were explained to the patient and informed consent was obtained by the healthcare proxy. The right basilic vein was localized using ultrasound guidance. The skin was prepped and draped in a sterile fashion. 1% lidocaine was used as a local anesthetic. Using ultrasound guidance the basilic vein was cannulated and a 0.018 guidewire was inserted and advanced to the SVC using fluoroscopic guidance. The needle was removed and a 4.5 [place]yanese dilator and peel-away sheath was inserted over the guide wire. A 4.5 [place] single lumen catheter was cut to length of 41 cm. The dilator was removed and the catheter was inserted over the guide wire with the tip ending in the SVC. The peel-away sheath was removed and the catheter was flushed with heparinized saline as per Hospital protocol. The catheter was affixed to the skin and a sterile dressing was applied. The patient tolerated the procedure well and there were no immediate complications. 0.8 minutes of fluoro time was utilized for this procedure. Electronically Signed by JESSE Fung 06/14/2019 05:30 P Electronically Signed by Hollis Weems MD 06/15/2019 09:56 A
[2019-06-15] MEDS: OMEPRAZOLE 20 MG CAP PO SCH (10:15)
[2019-06-15] MEDS: MULTIVITAMINS/MINERALS THERAP 1 TAB PO SCH (10:15)
[2019-06-15] MEDS: APIXABAN 2.5 MG TAB (ELIQUIS) PO SCH ×2 (10:15→20:37)
[2019-06-15] MEDS: FOLIC ACID 1 MG TAB PO SCH (10:15)
[2019-06-15] MEDS: THIAMINE 100 MG TAB PO SCH (10:15)
--- NOTE | 2019-06-15 12:24 | IPN ---
DATE: 06/15/2019 Mr. Medrano tells me that he is feeling a little shortness of breath today. He also complains about diarrhea. Denies any chest pain. Denies any palpitations. I changed his Cardizem to atenolol yesterday. It led to markedly improved rate control but his blood pressure is actually lower than it was yesterday. PHYSICAL EXAMINATION: He is alert and oriented times three, which is certainly progress. I do not appreciate any distress. His JVP does not look high. Lungs are clear on the left, on the right he has diminished breath sound about lower third of the lung. Heart: Exam reveals irregular rhythm. I do not appreciate distinct gallop. There is a faint murmur at the apex and there is also a faint murmur over the aortic valve. I do not appreciate distinct diastolic murmur. Abdomen is soft, nontender. Extremities are free of edema. LABORATORY WBC count 4.8, hemoglobin 10, hematocrit 29, platelet count 263,000. Basic metabolic panel: Sodium 143, potassium 4.0, BUN 28, creatinine 2.2 and glucose 120. Digoxin 1.4 IMPRESSION AND PLAN: Mr. Medrano is a complicated patient who has numerous medical issues. From my perspective the three leading cardiac conditions are: 1. Atrial fibrillation. 2. Endocarditis. 3. Congestive heart failure. As far as the atrial fibrillation is concerned the rate is much better controlled on his current regimen. Because his blood pressure is soft, I am going to change the administration of atenolol to evening hours. If we can get away without digoxin it would be preferable so I am not going to give him any dose today. Already he seems to be much better controlled. He has been chronically anticoagulated with Eliquis and it will be continued. The second issue is endocarditis, he had staph aureus, methicillin-sensitive culture from his blood. On transesophageal echocardiogram (DENISSE) there is a small vegetation on the aortic valve which looks to be more like a nonbacterial thrombotic vegetation, but it cannot be distinguished reliably just by imaging and in this setting I am afraid that he will have to be treated as having bacterial endocarditis. He is on nafcillin. I am a little bit concerned that the worsening renal function is related to administration of this medication. If the trend continues we probably should reconsider the management, possibly even get nephrology involved. As far as congestive heart failure is concerned, even though his fluid balance has been consistently positive in last few days, now he has diarrhea, even though it is not very severe. At this point, I do not believe we should start diuretics yet; besides right pleural effusion, I do not appreciate any other signs of volume overload.
--- NOTE | 2019-06-15 13:27 | IPNPDOC ---
Subjective Date Seen The patient was seen on 06/15/19. Subjective Chief Complaint/HPI Jason reports feeling lightheaded this morning, and having loose bowel movements. His nurse has not noted any diarrhea Objective Physical Examination General Exam: Positive: Alert, No Acute Distress, Other ( acute delirium) Eye Exam: Positive: EOMI; Negative: Sclera icteric ENT Exam: Positive: Atraumatic, Mucous membr. moist/pink Neck Exam: Positive: Supple; Negative: JVD, thyromegaly Chest Exam: Positive: Clear to auscultation Heart Exam: Positive: Rate Normal, Irregular Rhythm, Normal S1, Normal S2, Murmurs (systolic best heard in the apical region.); Negative: Rubs Telemetry: Positive: Atrial fibrillation, Tachycardia Abdomen Exam: Positive: Normal bowel sounds, Soft; Negative: Tenderness, Hepatospenomegaly Extremity Exam: Positive: Normal pulses; Negative: Clubbing, Cyanosis, Edema Skin Exam: Positive: Nl turgor and temperature; Negative: Breakdown, Lesion Psych Exam: Positive: Mental status NL, Mood NL, Other (oriented to place and person) Assessment /Plan Assessment # MSSA bacteremia - repeat b.cx 06/10 and 06/11 are no growth to date - continue naficillin, but renal dose to q12 - s/p DENISSE (06/12) with ? aortic valve vegetation vs. excrescence of lambl - ID recommending 6 weeks IV abx to end on 07/22/19, picc line placed 06/14 - will need CBC, BMP, ESR and CRP levels weekly while receivng abx # YUVAL on CKD stage 3 - I reviewed the patient's past creatinine levels over the past 10 years, and he tends to range 1.4-2.4 mg/dl - naficillin frequency has been adjusted for his lower GFR - agree with holding diuretic # Etoh withdrawal - controlled # Acute metabolic encephalopathy - improved but not at baseline - can stop seroquel # Afib with RVR - eliquis renal dosing - cardiology managing (digoxin load stopped, switched from Cardizem to atenolol) - HR controlled Dispo: medically stable for placement Plan/VTE VTE Prophylaxis Ordered?: Yes (eliquis renal dose) VTE Exclusion Mechanical Proph: N/A:VTE Prophy Ordered VTE Exclusion Pharmacological: N/A:VTE Prophy Ordered VS, I&O, 24H, Fishbone Vital Signs/I&O Vital Signs Date Time Temp Pulse Resp B/P (MAP) Pulse Ox O2 Delivery O2 Flow Rate FiO2 06/15/19 12:00 96.5 93 20 95/59 (71) 96 Room Air 06/14/19 04:00 2.0 I&O- Last 24 Hours up to 6 AM 06/15/19 06:00 Intake Total 1050 ml Output Total 450 ml Balance 600 ml Laboratory Data 24H LABS Laboratory Tests 2 06/15/19 05:45: Anion Gap 7L, Glomerular Filtration Rate 30.4L, Calcium Level 7.3L, Digoxin Level 1.4 CBC/BMP Laboratory Tests 06/15/19 05:45 Microbiology Microbiology 06/11/19 Blood Culture - Preliminary, Resulted No Growth after 72 hours. All specime... 06/10/19 Blood Culture - Final, Complete NO GROWTH AFTER 5 DAYS 06/07/19 Respiratory Virus Panel (PCR) ([facility]) - Final, Complete 06/07/19 Blood Culture - Final, Complete Staphylococcus Aureus 06/07/19 Blood Culture - Final, Complete Staphylococcus Aureus MITCHELL JC MD Jun 15, 2019 13:21
[2019-06-15] MEDS: NS 1,000 ML IV SCH (14:57)
[2019-06-15] MEDS: NS 500 ML IV ONE ×2 (18:06→18:20)
[2019-06-15] MEDS: traZODone 100 MG TAB PO SCH (20:37)
[2019-06-15] MEDS: ACETAMINOPHEN 500 MG TAB PO SCH (20:39)
[2019-06-15 21:00] LABS: CLOSTRIDIUM DIFFICILE PCR NEGATIVE (NEGATIVE)
[2019-06-16] VITALS (8 sets, daily range): BP systolic 70–117; BP diastolic 40–74
[2019-06-16] MEDS: DICYCLOMINE 10 MG CAP PO PRN ×2 (01:40→17:16)
[2019-06-16] MEDS: NAFCILLIN SOD 2 GM in D5W MINI-BAG PLUS 50 ML IV SCH ×4 (03:53→21:03)
[2019-06-16] MEDS: SODIUM CHLORIDE 0.9% INJ 10 ML SYR IV SCH ×2 (04:13→16:04)
[2019-06-16] MEDS: SLF 3 ML SYR IV SCH ×3 (04:13→21:03)
[2019-06-16 06:57] LABS: CALCIUM LEVEL 7.2 MG/DL (8.8-10.2); CREATININE FOR GFR 2.81 MG/DL (0.70-1.30); GLOMERULAR FILTRATION RATE 22.9 (>35); POTASSIUM SERUM 4.6 MEQ/L (3.5-5.1)
[2019-06-16] MEDS: LEVALBUTEROL 1.25 MG/0.5 ML CONCENTRATE NEB INH SCH ×4 (07:03→19:29)
[2019-06-16] MEDS: MULTIVITAMINS/MINERALS THERAP 1 TAB PO SCH (08:40)
[2019-06-16] MEDS: OMEPRAZOLE 20 MG CAP PO SCH (08:41)
[2019-06-16] MEDS: APIXABAN 2.5 MG TAB (ELIQUIS) PO SCH ×2 (08:41→20:59)
[2019-06-16] MEDS: THIAMINE 100 MG TAB PO SCH (08:41)
[2019-06-16] MEDS: FOLIC ACID 1 MG TAB PO SCH (08:41)
[2019-06-16] MEDS: atenoloL 50 MG TAB PO SCH (08:42)
[2019-06-16] MEDS: LOPERAMIDE 2 MG CAPLET PO PRN ×2 (10:31→15:02)
--- NOTE | 2019-06-16 11:58 | IPNPDOC ---
Subjective Date Seen The patient was seen on 06/16/19. Subjective Chief Complaint/HPI Jason's pressures are better this morning, He could not receive his atenolol last night due to soft BP, but it was given this morning and slowed his HR. Diarrhea is still present with tenesmus Objective Physical Examination General Exam: Positive: Alert, Mild Distress, Other ( acute delirium) Eye Exam: Positive: EOMI; Negative: Sclera icteric ENT Exam: Positive: Atraumatic, Mucous membr. moist/pink Neck Exam: Positive: Supple; Negative: JVD, thyromegaly Chest Exam: Positive: Clear to auscultation Heart Exam: Positive: Rate Normal, Irregular Rhythm, Normal S1, Normal S2, Murmurs (systolic best heard in the apical region.); Negative: Rubs Telemetry: Positive: Atrial fibrillation, Tachycardia Abdomen Exam: Positive: Normal bowel sounds, Soft, Tenderness (mild RLQ tenderness to palpation); Negative: Hepatospenomegaly Extremity Exam: Positive: Normal pulses; Negative: Clubbing, Cyanosis, Edema Skin Exam: Positive: Nl turgor and temperature; Negative: Breakdown, Lesion Psych Exam: Positive: Mental status NL, Mood NL Assessment /Plan Assessment # MSSA bacteremia - repeat b.cx 06/10 and 06/11 are no growth to date - continue nafcillin, but renal dose to q12 - s/p DENISSE (06/12) with ? aortic valve vegetation vs. excrescence of lambl - ID recommending 6 weeks IV abx to end on 07/22/19, picc line placed 06/14 - will need CBC, BMP, ESR and CRP levels weekly while receivng abx # YUVAL on CKD stage 3 - I reviewed the patient's past creatinine levels over the past 10 years, and he tends to range 1.4-2.4 mg/dl - naficillin frequency has been adjusted for his lower GFR - creat 2.8 this morning, I've contacted nephrology to see him. Likely worsened by GI losses + hypotension + nafcillin - continue IVFs - agree with holding diuretic # Diarrhea - likely antibiotic associated diarrhea - C. Diff is negative, Imodium prn # Etoh withdrawal - controlled # Acute metabolic encephalopathy - resolved # Afib with RVR - eliquis renal dosing - cardiology managing (digoxin load stopped, switched from Cardizem to atenolol) Dispo: medically stable for placement Plan/VTE VTE Prophylaxis Ordered?: Yes (eliquis renal dose) VTE Exclusion Mechanical Proph: N/A:VTE Prophy Ordered VTE Exclusion Pharmacological: N/A:VTE Prophy Ordered VS, I&O, 24H, Fishbone Vital Signs/I&O Vital Signs Date Time Temp Pulse Resp B/P (MAP) Pulse Ox O2 Delivery O2 Flow Rate FiO2 06/16/19 08:42 130 114/69 06/16/19 08:00 96.9 20 100 Room Air 06/15/19 20:48 2.0 I&O- Last 24 Hours up to 6 AM 06/16/19 06:00 Intake Total 1725 ml Output Total 0 ml Balance 1725 ml Laboratory Data 24H LABS Laboratory Tests 2 06/15/19 20:02: Clostridium difficile [id number] PRESUMPTIVE NEGATIVE, Clostridium difficile Toxin (PCR) NEGATIVE 06/16/19 05:57: Anion Gap 9, Glomerular Filtration Rate 22.9L, Calcium Level 7.2L CBC/BMP Laboratory Tests 06/16/19 05:57 Microbiology Microbiology 06/11/19 Blood Culture - Final, Complete NO GROWTH AFTER 5 DAYS 06/10/19 Blood Culture - Final, Complete NO GROWTH AFTER 5 DAYS 06/07/19 Respiratory Virus Panel (PCR) ([facility]) - Final, Complete 06/07/19 Blood Culture - Final, Complete Staphylococcus Aureus 06/07/19 Blood Culture - Final, Complete Staphylococcus Aureus MITCHELL JC MD Jun 16, 2019 11:58
[2019-06-16] MEDS: NS 1,000 ML IV SCH ×2 (13:22→21:06)
--- NOTE | 2019-06-16 13:37 | IPN ---
DATE OF SERVICE: 06/16/2019 Mr. Medrano tells me that he has not been feeling well. He cannot quite specify what is the problem, but he does admit that he certainly does not feel like eating anything, and he had abdominal pain earlier today. He denies significant dyspnea. Denies any chest pain. Denies sensation of palpitations. Yesterday, he did not get his evening dose of atenolol because his blood pressure was low, but it was administered this morning after his heart rate was quite tachycardic and is coming down quite nicely. Vital signs: Blood pressure is 117/70, heart rate is currently in low 100s but was higher earlier today. He is afebrile. Saturation 100% on room air. Fluid balance yesterday was recorded about positive 1300. He did not make a lot of urine, but there was a lot of incontinence voids, and he had some bowel movements. Weight is 78.1, which is about a kilogram up since yesterday. He is alert and oriented. His jugular venous pressure (JVP) is not high. Lungs are still diminished over right base. Heart examination reveals irregular rhythm. I do not appreciate gallop. There is a murmur at the apex and less prominent murmur over the aortic valve. I do not appreciate diastolic murmur as such. Abdomen is soft. There is some tenderness over lower quadrant but no guarding. Extremities are free of edema. LABORATORIES: Basic metabolic panel: Sodium 142, potassium 4.6, BUN 32, creatinine 2.8, GFR 23, and glucose 142. Complete blood count (CBC): Hemoglobin 10, hematocrit 29, platelet count 263,000. ASSESSMENT AND PLAN: Mr. Medrano is an 84-year-old man who has multiple medical problems. Currently, the most pressing issue is worsening renal function. I do believe that it is most likely prerenal due to diarrhea and very poor oral intake. He was given some hydration, and the dose of antibiotic is being adjusted. This is managed by nephrology and primary team. The second issue is atrial fibrillation. Hopefully, he will have sufficiently high blood pressure to tolerate atenolol, which with the daily administration I think should be providing sufficient heart rate control. He is anticoagulated with renally adjusted dose of Eliquis. As far as the heart failure is concerned, at this point I do not appreciate any distinct volume overload, even though he still has evidence for right pleural effusion by physical examination. He needs if anything to be encouraged to eat and be hydrated. MTDD
[2019-06-16 15:05] LABS: APPEARANCE, URINE CLOUDY (CLEAR); BACTERIA, URINE AUTO 1+ (NEGATIVE); BILIRUBIN, URINE AUTO NEGATIVE (NEGATIVE); BLOOD, URINE BLOOD 1+ (NEGATIVE); COLOR, URINE AMBER (YELLOW); GLUCOSE, URINE (UA) AUTO 1+ mg/dL (NEGATIVE); KETONE, URINE AUTO NEGATIVE (NEGATIVE); LEUKOCYTE ESTERASE, URINE AUTO TRACE (NEGATIVE); MUCUS, URINE SMALL (NEGATIVE); NITRITE, URINE AUTO NEGATIVE (NEGATIVE); PROTEIN, URINE AUTO NEGATIVE (NEGATIVE); RBC, URINE AUTO 32 /HPF (0-3); RENAL EPITHELIAL CELLS 1 /HPF; SPECIFIC GRAVITY URINE AUTO 1.026 (1.002-1.035); SQUAMOUS EPITHELIAL CELL UR AU 4 /HPF (0-6); UROBILINOGEN, URINE AUTO 0.2 mg/dL (0.0-2.0); WBC, URINE AUTO 25 /HPF (0-3)
[2019-06-16] MEDS: traZODone 100 MG TAB PO SCH (20:59)
[2019-06-16] MEDS: ACETAMINOPHEN 500 MG TAB PO SCH (21:00)
[2019-06-17] VITALS: BP 110/67
[2019-06-17] MEDS: NS 1,000 ML IV SCH ×3 (01:09→18:01)
[2019-06-17] MEDS: NAFCILLIN SOD 2 GM in D5W MINI-BAG PLUS 50 ML IV SCH (03:35)
[2019-06-17 04:00] VITALS: BP 140/66
[2019-06-17] MEDS: SODIUM CHLORIDE 0.9% INJ 10 ML SYR IV SCH ×2 (05:12→17:21)
[2019-06-17] MEDS: SLF 3 ML SYR IV SCH ×3 (05:13→20:21)
[2019-06-17 06:02] LABS: C REACTIVE PROTEIN QUANTITATIV 5.57 MG/DL (0.00-0.30); CALCIUM LEVEL 6.9 MG/DL (8.8-10.2); CREATININE FOR GFR 3.58 MG/DL (0.70-1.30); GLOMERULAR FILTRATION RATE 17.4 (>35)
--- NOTE | 2019-06-17 06:18 | IPN ---
DATE OF SERVICE: 06/16/2019 SUBJECTIVE: Nephrology service was called back to see Mr. Medrano in view of worsening renal function. The chart is reviewed. He is noted to have recurrent hypotension and is requiring beta olegario for rate uncontrolled atrial fibrillation. He is also on IV nafcillin for endocarditis and has had poor oral intake and intermittent diarrhea and his creatinine has increased to 2.8. The patient denies any shortness of breath or sensation of palpitations. His heart rate was up to 130 this morning. OBJECTIVE: Vital Signs: Temperature 97.8, pulse 106, respiratory rate 20, blood pressure 117/70, saturating 98% on room air. Intake yesterday was 1460. Urine output yesterday was not recorded. Two voids were listed along with five bowel movements yesterday and six bowel movements recorded today. General: The patient is seen lying in bed. The head of the bed is elevated. Awake, alert, oriented and in no apparent distress. His jugular veins are not elevated. Breath sounds are fairly clear bilaterally. No crackle or rales. Cardiac: Heart sounds are irregular and tachycardiac. There is a systolic murmur. The abdomen is soft and there is some tenderness in the suprapubic area, but there is no distended bladder that is palpable. The extremities are negative for edema, clubbing or cyanosis. Skin: Normal temperature and turgor. LABORATORY DATA: Hemoglobin 10.0, platelet 263, sodium 142, potassium 4.6, bicarbonate 20, BUN 32, creatinine 2.8. Urinalysis is negative for protein, but does show 1+ blood. INPATIENT MEDICATIONS: His nafcillin dose has been decreased to 2 grams IV every 6 hours. He is receiving normal saline at 125 mL an hour. His atenolol was switched to bedtime and remains at 100 mg daily. He is receiving loperamide p.r.n. diarrhea. The remainder of medications are unchanged. PROBLEMS: 1. Acute on chronic renal failure. Baseline creatinine ranges from around 1.6 to 2.2. Renal function has worsened in the past 72 hours. He has had recurrent acute kidney injury on this admission. I believe it is multifactorial. I am concerned that overall when I see his blood pressure trend he has had significant hypotension with many systolic readings in the 80s and even as low as 70. I suggest that his beta olegario dose be reduced. Perhaps digoxin can be used for rate control instead. The other question is of interstitial nephritis related to nafcillin. I feel this is less likely. His nafcillin dose has already been reduced. Lastly, there is the possibility of infection related to glomerulonephritis in view of his endocarditis. Again, I feel this is less likely. A repeat urinalysis today was negative for protein and had only 1+ blood. Nursing staff is requested to get a postvoid residual bladder scan as the patient no longer has a Galvan catheter and we are also giving him generous IV fluids in view of diarrhea and poor blood pressures. 2. Rate uncontrolled atrial fibrillation. Recurrent documented hypotension systolic as low as 70s, multiple systolic readings in the 80s to 90 range. Concern of renal hypoperfusion causing acute kidney injury. Suggest to cut down on the beta olegario dose. Perhaps digoxin can be used for rate control. Will defer to cardiology. He is anticoagulated appropriately with low-dose Eliquis. 3. Diarrhea, multiple bowel movements, poor oral intake, low blood pressures. Continue IV fluids normal saline at 125 mL an hour. 4. 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 Absolutely no signs of decompensated fluid status. Please continue with IV fluids. At present, I feel his worsening renal function is more likely due to low blood pressures and volume depletion rather than the IV nafcillin. MTDD
[2019-06-17 08:00] VITALS: BP 90/56
[2019-06-17] MEDS: LEVALBUTEROL 1.25 MG/0.5 ML CONCENTRATE NEB INH SCH ×4 (08:03→20:26)
[2019-06-17] MEDS: OMEPRAZOLE 20 MG CAP PO SCH (08:10)
[2019-06-17] MEDS: APIXABAN 2.5 MG TAB (ELIQUIS) PO SCH ×2 (08:10→20:19)
[2019-06-17] MEDS: THIAMINE 100 MG TAB PO SCH (08:10)
[2019-06-17] MEDS: MULTIVITAMINS/MINERALS THERAP 1 TAB PO SCH (08:11)
[2019-06-17] MEDS: FOLIC ACID 1 MG TAB PO SCH (08:11)
--- NOTE | 2019-06-17 08:30 | IPN ---
DATE: 06/17/2019 Mr. Medrano is about the same. He denies any dyspnea but he says that he is anorexic and he just generally does not feel well. Unfortunately the morning he is again somewhat confused. He tells me that we moved him to a different room which certainly is not the case, but denies any chest pain or shortness of breath. Vital signs: Blood pressure 140/66, but yesterday during the evening hours he was as low as 70/40, heart rate is in 60s up to 130s, atrial fibrillation, saturation 96% on room air. His fluid balance yesterday was positive about 3 liters, weight is 78.1 kg. He is alert and oriented times two. I do not appreciate any tremor or he is otherwise very pleasant and certainly not agitated. His jugular venous pulse (JVP) is not high. Lungs are clear on the left, on the right the bases again diminished. Heart exam reveals irregularly irregular rhythm. There is a murmur at the apex, not very prominent, systolic in nature. Abdomen is soft. No tenderness. There is no peripheral edema. I do not appreciate any neurologic focal weakness. There is no CBC this morning. ESR was down to 28 yesterday and a basic metabolic panel reveals sodium 142, potassium 4.0, BUN 38, creatinine 3.6 and glucose 116. ASSESSMENT/PLAN: Mr. Medrano is a 84-year-old man who has chronic atrial fibrillation, sick sinus syndrome status post pacemaker placement, chronic mitral insufficiency and chronic diastolic heart failure with underlying renal insufficiency and a baseline creatinine around 1.5 to 2. He has had very complicated course that included alcohol withdrawal, presence of right sided pneumothorax, but also development of bacteremia and DENISSE revealing small vegetation on the aortic valve and he has been on nafcillin. In the last few days the dominant issue is progressive renal insufficiency. He was seen by nephrology yesterday and it was felt it was a combination of factors that include intermittent hypotension and poor oral intake and possibly nafcillin. I cut down the dose of atenolol at their recommendation, the heart rate control has been better. I do hope that we will start seeing some turn around, the blood pressure is certainly better this morning. Otherwise the atrial fibrillation seems to be reasonably well-controlled and he is anticoagulated with apixaban. As far as the heart failure is concerned, I do not appreciate any signs of volume overload but for presence of right pleural effusion. Dr. Hoang will take over his care as of tomorrow as I will be off for a week. RAFFAELE
[2019-06-17 11:17] LABS: CORTISOL BASELINE 34.6 UG/DL (4.3-22.4)
[2019-06-17 12:00] VITALS: BP 101/62
[2019-06-17] MEDS: LOPERAMIDE 2 MG CAPLET PO PRN (13:25)
[2019-06-17 16:00] VITALS: BP 113/67
--- NOTE | 2019-06-17 16:20 | IPNPDOC ---
Subjective Date Seen The patient was seen on 06/17/19. Subjective Chief Complaint/HPI Daughter who's an CONTROL TECHNICIAN at bedside, and updated by me on worsening renal function. BP improved this am with reduction of atenolol. No orthostasis this am. confused overnight, but seems fine to me this morning. Objective Physical Examination General Exam: Positive: Alert, No Acute Distress Eye Exam: Positive: EOMI; Negative: Sclera icteric ENT Exam: Positive: Atraumatic, Mucous membr. moist/pink Neck Exam: Positive: Supple; Negative: JVD, thyromegaly Chest Exam: Positive: Clear to auscultation Heart Exam: Positive: Rate Normal, Irregular Rhythm, Normal S1, Normal S2, Murmurs (systolic best heard in the apical region.); Negative: Rubs Telemetry: Positive: Atrial fibrillation Abdomen Exam: Positive: Normal bowel sounds, Soft; Negative: Hepatospenomegaly Extremity Exam: Positive: Normal pulses; Negative: Clubbing, Cyanosis, Edema Skin Exam: Positive: Nl turgor and temperature; Negative: Breakdown, Lesion Psych Exam: Positive: Mental status NL, Mood NL Assessment /Plan Assessment MSSA bacteremia - repeat b.cx 06/10 and 06/11 are no growth to date - continue nafcillin, but renal dose to q12 - s/p DENISSE (06/12) with ? aortic valve vegetation vs. excrescence of lambl - ID recommending 6 weeks IV abx to end on 07/22/19, picc line placed 06/14 - will need CBC, BMP, ESR and CRP levels weekly while receivng abx # oliguric YUVAL on CKD stage 3 due to ischemic ATN - I reviewed the patient's past creatinine levels over the past 10 years, and he tends to range 1.4-2.4 mg/dl - naficillin frequency has been adjusted for his lower GFR - creat 2.8 this morning, I've contacted nephrology to see him. Likely worsened by GI losses + hypotension + nafcillin - continue IVFs - agree with holding diuretic # Hypotension - improved with reduction of atenolol - random cortisol is normal # Diarrhea - likely antibiotic associated diarrhea - C. Diff is negative, Imodium prn # Etoh withdrawal - controlled # Acute metabolic encephalopathy - resolved # Afib with RVR - eliquis renal dosing - cardiology managing (digoxin load stopped, switched from Cardizem to atenolol) Dispo: SNF when medically stable Plan/VTE VTE Prophylaxis Ordered?: Yes (eliquis renal dose) VTE Exclusion Mechanical Proph: N/A:VTE Prophy Ordered VTE Exclusion Pharmacological: N/A:VTE Prophy Ordered VS, I&O, 24H, Fishbone Vital Signs/I&O Vital Signs Date Time Temp Pulse Resp B/P (MAP) Pulse Ox O2 Delivery O2 Flow Rate FiO2 06/17/19 16:00 97.9 85 20 113/67 (82) 91 Room Air 06/15/19 20:48 2.0 I&O- Last 24 Hours up to 6 AM 06/17/19 06:00 Intake Total 3272.5 ml Output Total 100 ml Balance 3172.5 ml Laboratory Data 24H LABS Laboratory Tests 2 06/17/19 05:12: Erythrocyte Sedimentation Rate 28H, Anion Gap 9, Glomerular Filtration Rate 17.4L, Calcium Level 6.9L, C-Reactive Protein, Quantitative 5.57H 06/17/19 09:39: Cortisol Baseline 34.6H CBC/BMP Laboratory Tests 06/17/19 05:12 Microbiology Microbiology 06/11/19 Blood Culture - Final, Complete NO GROWTH AFTER 5 DAYS 06/10/19 Blood Culture - Final, Complete NO GROWTH AFTER 5 DAYS 06/07/19 Respiratory Virus Panel (PCR) (VIKKI) - Final, Complete 06/07/19 Blood Culture - Final, Complete Staphylococcus Aureus 06/07/19 Blood Culture - Final, Complete Staphylococcus Aureus MITCHELL JC MD Jun 17, 2019 16:20
[2019-06-17] MEDS: ONDANSETRON 4MG/2ML VIAL (J2405) IV PRN (18:01)
--- NOTE | 2019-06-17 19:50 | REPVR ---
PROCEDURE INFORMATION: Exam: US Retroperitoneal Limited, Kidneys Exam date and time: 06/17/2019 7:31 PM Age: 84 years old Clinical indication: Condition or disease; Kidney or ureter condition; Acute renal insufficiency and chronic kidney disease or failure; Not specified; Additional info: Zachary on ckd TECHNIQUE: Imaging protocol: Real-time ultrasound of the retroperitoneum with image documentation. Examination was focused on the kidneys. COMPARISON: RENAL US 06/08/2019 10:47 AM FINDINGS: Right kidney: Right kidney measures 8.5 x 3.9 x 3.5 cm. Marked increased echogenicity of the renal parenchyma. Multiple right renal cysts measure up to 2.6 x 2.8 x 2.9 cm in the upper pole. Left kidney: Left kidney measures 11.4 x 4.3 x 5.2 cm. Markedly echogenic renal parenchyma. Foci of parenchymal thinning may be related to prior infection, vascular, a or inflammatory disease. Multiple left renal cysts measure up to 2.8 x 2.8 x 2.7 cm in the upper pole. Bladder: Trabeculated urinary bladder consistent with changes secondary to a chronic bladder outlet obstruction. IMPRESSION: 1. Bilateral echogenic renal parenchyma with reduced renal volume on the right, findings consistent with chronic renal disease. Multiple bilateral simple renal cysts as described above. 2. Trabeculated urinary bladder consistent with changes secondary to bladder outlet obstruction. Electronically signed by: Fitz Paniagua On 06/17/2019 19:49:45 PM
[2019-06-17 20:00] VITALS: BP 105/65
[2019-06-17] MEDS: ceFAZolin SOD 1 GM in IV 1 EA IV SCH (20:16)
[2019-06-17] MEDS: atenoloL 50 MG TAB PO SCH (20:20)
[2019-06-17] MEDS: ACETAMINOPHEN 500 MG TAB PO SCH (20:20)
[2019-06-17] MEDS: traZODone 100 MG TAB PO SCH (20:20)
--- NOTE | 2019-06-17 22:45 | IPN ---
DATE: 06/17/2019 SUBJECTIVE: Jason is seen and examined this morning at the bedside. His daughter was present. I had a lengthy discussion with them regarding his ongoing renal failure and the high likelihood of developing dialysis needs in the coming 48 hours. The patient reports dyspnea on exertion but otherwise denies any new complaints. Per family, his oral intake is improving. He had a postvoid residual bladder scan which showed minimal urine, and he is having poor urine output to his [place] catheter. Vital signs: Temperature 97.9, pulse 85, respiratory rate 20, blood pressure 113/67, saturating 91% on room air. Intake yesterday was 3.3 liters. Urine output yesterday was and not fully recorded. There were six bowel movements and three voids recorded. Weight in the bed scale today is not recorded. General: The patient is seen lying in bed. Head of the bed is slightly elevated. Elderly male awake, alert and mildly confused, in no apparent distress. Extraocular muscles are intact. Ear, nose and throat are unremarkable. Jugular veins are mildly elevated. Breath sounds are diminished at the right base but otherwise clear bilaterally. He is comfortable on room air. There is no accessory muscle use or tachypnea. Heart sounds are irregularly irregular, rate is controlled. There is no peripheral edema. Abdomen is soft. There is no distended bladder. Extremities are negative for clubbing, cyanosis or edema. Skin: Normal temperature and turgor. LABORATORY: Sodium 142, potassium 4.0, bicarbonate 22, BUN 38, creatinine 3.5. Renal ultrasound June 17, 2019: Very echogenic kidneys. Right kidney is smaller at 8.5 cm and left kidney is normal size at 11.4 cm. There are multiple scattered renal cysts and a trabeculated urinary bladder. INPATIENT MEDICATIONS: His nafcillin was discontinued and switched to cefazolin 1 gram IV every 12 hours. His normal saline was dropped to 40 mL an hour. His atenolol was dropped to 50 mg by mouth nightly. His remainder medications are unchanged from prior. PROBLEMS: 1. Acute kidney injury (YUVAL) on chronic kidney disease (CKD) stage 3B. Baseline creatinine 1.6 to 2.2. Renal function continues to worsen. This is his second acute kidney injury on this admission. It is felt to be multifactorial and secondary to labile blood pressures/possible adverse drug reaction (interstitial nephritis related to nafcillin)/endocarditis. IV fluids are being cut down to 40 mL an hour. His blood pressures have improved over the past day. His atenolol dose was cut down. I switched his nafcillin to cefazolin after discussing with infectious diseases. Despite all these measures, I feel he is likely to progress to dialysis needs, and I have discussed the same with the patient and his daughter. At present, there is no urgent indication for dialysis, and we will continue to closely monitor his renal function and assess for dialysis needs. 2. Congestive heart failure. The patient has received IV fluids over the weekend. He does not look dry anymore. I cut the fluid rate down to 40 mL an hour. He has a pleural effusion on the right. His urine output is quite poor and we want to avoid fluid overload in the setting of kidney injury. 3. Atrial fibrillation. Rate is fairly well controlled. Beta olegario dose is decreased. Blood pressures have improved, IV fluids are being cut down. 4. 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 IV nafcillin was changed to cefazolin 1 gram every 12 hours in discussion with infectious diseases. 5. Disposition. Multifactorial acute kidney injury in this elderly male with history of advanced chronic kidney disease, recent acute kidney injury which is now recurrent in the setting of endocarditis, antibiotic use and hemodynamic instability. High risk for progressing to dialysis needs. Discussed with his daughter. Will monitor closely.
[2019-06-18] VITALS: BP 112/62
[2019-06-18 04:00] VITALS: BP 100/60
[2019-06-18 05:33] LABS: HEMATOCRIT 27.8 % (42.0-52.0); HEMOGLOBIN 9.2 g/dl (13.5-17.5); MEAN CORPUSCULAR HEMOGLOBIN 33.1 pg (27.0-33.0); MEAN CORPUSCULAR HGB CONC 33.1 g/dl (32.0-36.5); PLATELET COUNT, AUTOMATED 275 10^3/uL (150-450); RED BLOOD COUNT 2.78 10^6/uL (4.30-6.10); WHITE BLOOD COUNT 10.8 10^3/uL (4.0-10.0)
[2019-06-18] MEDS: SLF 3 ML SYR IV SCH ×3 (05:33→20:27)
[2019-06-18] MEDS: SODIUM CHLORIDE 0.9% INJ 10 ML SYR IV SCH ×2 (05:33→18:03)
[2019-06-18 05:55] LABS: CALCIUM LEVEL 6.8 MG/DL (8.8-10.2); CREATININE FOR GFR 3.45 MG/DL (0.70-1.30); GLOMERULAR FILTRATION RATE 18.1 (>35); POTASSIUM SERUM 3.3 MEQ/L (3.5-5.1)
[2019-06-18] MEDS: LEVALBUTEROL 1.25 MG/0.5 ML CONCENTRATE NEB INH SCH ×4 (07:14→20:51)
[2019-06-18 08:00] VITALS: BP 88/54
[2019-06-18] MEDS: OMEPRAZOLE 20 MG CAP PO SCH (09:48)
[2019-06-18] MEDS: APIXABAN 2.5 MG TAB (ELIQUIS) PO SCH ×2 (09:48→20:26)
[2019-06-18] MEDS: FOLIC ACID 1 MG TAB PO SCH (09:48)
[2019-06-18] MEDS: THIAMINE 100 MG TAB PO SCH (09:48)
[2019-06-18] MEDS: MULTIVITAMINS/MINERALS THERAP 1 TAB PO SCH (09:48)
[2019-06-18] MEDS: ceFAZolin SOD 1 GM in IV 1 EA IV SCH ×2 (09:49→20:26)
[2019-06-18 10:46] LABS: ALBUMIN 1.3 GM/DL (3.2-5.2); PHOSPHORUS LEVEL 5.5 MG/DL (2.5-4.9)
[2019-06-18 12:00] VITALS: BP 116/60
[2019-06-18] MEDS: CALCITRIOL 0.25 MCG CAP (S0169) PO SCH (14:49)
[2019-06-18 16:00] VITALS: BP 129/72
--- NOTE | 2019-06-18 16:57 | IPN ---
DATE: 06/18/2019 This note is on behalf of Dr. Maya Gambino. Subjectively, the patient reports that he is feeling well this morning. He has had no adverse events overnight. No changes overnight. He denies any headache, nausea, vomiting, diarrhea, dizziness, or lightheadedness. Vital Signs: Temperature 97.5, pulse of 70, respiratory rate of 18, blood pressure 116/60, pulse oximetry is 91% on room air. Generally, he is laying in bed. He is calm, cooperative. He is in no acute distress. He is very pleasant. HEENT: Extraocular movements are intact. Pupils are equally round and reactive to light. Head is normocephalic, atraumatic. Neck is supple with no thyromegaly, no lymphadenopathy. Chest: He has even chest rise. Lungs are clear to auscultation bilaterally with possibly some decreased breath sounds in the right base up to the middle lobe, otherwise no adventitious breath sounds appreciated. Heart sounds: Irregularly irregular but controlled rate. Abdomen is soft and nontender with positive bowel sounds and no organomegaly and no masses. Extremities are negative for clubbing, cyanosis or edema. Skin: Has no new rashes. Labs today: His hematology demonstrates a white blood cell count of 10.8, hemoglobin of 9.2, hematocrit of 27.8 with a platelet count of 275. His chemistry demonstrates a sodium of 145, potassium of 3.3, chloride of 116, BUN of 44, and a creatinine that is 3.45 down from 3.58 yesterday. His GFR is estimated at 18%. His calcium is 6.8 and his phosphorus is 5.5. In addition, his albumin is low at 1.3. His intact PTH was 229, which was high, and his baseline cortisol was 34.. He did have a renal ultrasound done on 06/17/2019, which demonstrated bilateral echogenic renal parenchyma with reduced renal volume on the right. Findings consistent with chronic renal disease. He also had multiple bilateral simple renal cysts and secondly he had a trabeculated urinary bladder consistent with changes secondary to bladder outlet obstruction. PROBLEMS: 1. Acute kidney injury on chronic kidney disease stage 3B. Baseline creatinine 1.6 to 1.2. The patient's renal function continues to worsen, and he has also had decreased urine output in the past 24 hours. The etiology of his acute injury is likely thought to be multifactorial due to labile blood pressures, possible drug interaction; therefore, we have cut down his IV fluids. His blood pressures are a little bit better controlled now. It is likely that the patient may require dialysis in the next 48 hours, and he has been advised as so. All of his questions have been answered. Although there is no urgent indication for dialysis, he may need it in the near future. 2. Congestive heart failure. Fluids have been cut down. He did have a pleural effusion on his right side, and his urine output is quite poor. Therefore, as stated above, he may require dialysis. 3. Atrial fibrillation. Rate is controlled at this time. 4. 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 5. Disposition: Multifactorial acute kidney injury in an elderly male with history of advanced chronic kidney disease, recent acute kidney injury which is now recurrent in the setting of endocarditis, antibiotic use and hemodynamic instability. Likely will need dialysis within the next 48 hours. Discussed this with the patient. Will monitor closely. RAFFAELE
[2019-06-18] MEDS: NS 1,000 ML IV SCH (18:03)
[2019-06-18 20:00] VITALS: BP 110/52
[2019-06-18] MEDS: traZODone 100 MG TAB PO SCH (20:25)
[2019-06-18] MEDS: atenoloL 50 MG TAB PO SCH (20:26)
[2019-06-18] MEDS: ACETAMINOPHEN 500 MG TAB PO SCH (20:26)
--- NOTE | 2019-06-18 20:27 | IPNPDOC ---
Subjective Date Seen The patient was seen on 06/18/19. Subjective Chief Complaint/HPI The patient actually reports that he is feeling fairly well this morning. He has been getting up to use the restroom multiple times yesterday, and during the night. He does get a little short of breath when going there. Regrettably his urine output continues to be poor. He does not have any acute complaints at this time, and is actually of a fairly good disposition while I am speaking to him, despite the fact that he does understand the difficulty of his situation. General: Reports: Normal Appetite; Denies: Chills, Night Sweats, Fatigue, Malaise Constitutional: Denies: Chills, Fever, Night Sweats Eyes: Denies: Pain, Vision change ENT: Denies: Head Aches, Ear Pain, Dysphagia Skin: Denies: Rash, Lesions, Breakdown Pulmonary: Reports: Dyspnea (he does have some minimal dyspnea on exertion), Cough (mild, intermittent) Cardiovascular: Reports: Orthopnea; Denies: Chest Pain, Palpitations, Paroxysmal Noc. Dyspnea, Lt Headedness Gastrointestinal: Reports: Diarrhea; Denies: Nausea, Vomiting, Abdominal Pain, Constipation Genitourinary: Reports: Incontinence; Denies: Dysuria, Frequency, Retention Hematologic: Denies: Bruising, Bleeding Excessively Musculoskeletal: Denies: Neck Pain, Back Pain, Joint Pain, Muscle Pain, Spasms Neurological: Denies: Weakness, Numbness, Change in speech, Confusion Psych: Reports: Mood Normal; Denies: Depression, Memory Issues Objective Physical Examination General Exam: Positive: Alert, Cooperative, No Acute Distress Eye Exam: Positive: Conjunctiva & lids normal, EOMI; Negative: Sclera icteric ENT Exam: Positive: Atraumatic, Mucous membr. moist/pink, Pharynx Normal Chest Exam: Positive: Normal air movement, Rales (minimal rales in the right lower base), Diminished Heart Exam: Positive: Rate Normal, Irregular Rhythm, Murmurs (systolic best heard in the apical region.); Negative: Rubs Telemetry: Positive: Atrial fibrillation Abdomen Exam: Positive: Normal bowel sounds, Soft; Negative: Hepatospenomegaly Extremity Exam: Positive: Normal pulses; Negative: Clubbing, Cyanosis, Edema Skin Exam: Positive: Nl turgor and temperature; Negative: Breakdown, Lesion Neuro Exam: Positive: Normal Speech Psych Exam: Positive: Mental status NL, Mood NL Assessment /Plan Plan/VTE VTE Prophylaxis Ordered?: Yes (eliquis renal dose) VTE Exclusion Mechanical Proph: N/A:VTE Prophy Ordered VTE Exclusion Pharmacological: N/A:VTE Prophy Ordered Plan MSSA bacteremia - repeat b.cx 06/10 and 06/11 are no growth to date - continue nafcillin, renal dose to q12 - s/p DENISSE (06/12) with ? aortic valve vegetation vs. 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 - Nephrology is following, and they are making appropriate changes to his medical regimen, however it is their estimation that he will likely require dialysis within the next few days. # Hypotension - Blood pressure within acceptable limits today, no changes to his antihypertensives at this time. # Diarrhea - likely antibiotic associated diarrhea - C. Diff is negative, Imodium prn # Etoh withdrawal - controlled # Acute metabolic encephalopathy - resolved # Afib with RVR - eliquis renal dosing - cardiology managing Dispo: SNF when medically stable VS, I&O, 24H, Fishbone Vital Signs/I&O Vital Signs Date Time Temp Pulse Resp B/P (MAP) Pulse Ox O2 Delivery O2 Flow Rate FiO2 06/18/19 20:00 97.2 90 18 110/52 (71) 94 Room Air 06/15/19 20:48 2.0 I&O- Last 24 Hours up to 6 AM 06/18/19 06:00 Intake Total 825 ml Output Total 325 ml Balance 500 ml Laboratory Data 24H LABS Laboratory Tests 2 06/18/19 05:06: Nucleated Red Blood Cells % (auto) 0.0, Anion Gap 6L, Glomerular Filtration Rate 18.1L, Calcium Level 6.8L, Phosphorus Level 5.5H, Albumin 1.3L CBC/BMP Laboratory Tests 06/18/19 05:06 Microbiology Microbiology 06/11/19 Blood Culture - Final, Complete NO GROWTH AFTER 5 DAYS 06/10/19 Blood Culture - Final, Complete NO GROWTH AFTER 5 DAYS LENA DUNCAN DO Jun 18, 2019 20:27
[2019-06-19] VITALS: BP 93/54
[2019-06-19 04:00] VITALS: BP 94/52
[2019-06-19] MEDS: SLF 3 ML SYR IV SCH ×3 (05:31→20:26)
[2019-06-19] MEDS: SODIUM CHLORIDE 0.9% INJ 10 ML SYR IV SCH ×2 (05:31→17:23)
[2019-06-19] MEDS: LEVALBUTEROL 1.25 MG/0.5 ML CONCENTRATE NEB INH SCH ×4 (07:24→20:28)
--- NOTE | 2019-06-19 07:24 | IPN ---
DATE: 06/18/2019 Mr. Jason Medrano was seen in progressive care unit (PCU), he was in supine in no acute distress and is son was at the bedside. He stated that he feels better. He denies any chest pain, palpitations and no orthopnea or paroxysmal nocturnal dyspnea (PND). He denies any bleeding. He has been in the hospital for a long time, initially admitted on 05/20/2019 with a pleural effusion and pneumothorax, heart failure. He has a history of atrial fibrillation for which he has been on Xarelto, hypertension. While in the hospital, he did have some deterioration of his kidney function and also was diagnosed for possible bacterial endocarditis involving the aortic valve for which he has been on IV antibiotics. PHYSICAL EXAMINATION: The patient is alert and oriented, in no acute distress and he is vital signs earlier this evening reveal a blood pressure of 110/62 with a pulse of 90, respiration 18 and maximum temperature was 97.2 degrees Fahrenheit with a oxygen saturation of 92-94% on room air. Examination of the head: Atraumatic. Neck is supple and I could not appreciate any jugular venous distention (JVD). The lung did not reveal any wheezing or crackles. The heart examination revealed an irregular heart sounds without gallops. The point of maximum impact (PMI) is displaced inferiorly and laterally. There is no rub. Abdomen is unremarkable. Extremities reveal trace ankle edema. Neurological examination was limited but no focal deficit. LABORATORY DATA: CBC done today revealed a WBC of 10.8, hemoglobin 9.2, hematocrit 37.8 and platelet 275,000. BMP revealed a sodium of 145, potassium 3.3, chloride was 116, CO2 23, BUN 44, creatinine 3.45, GFR 18.1 and fasting glucose 92 with a calcium of 6.8. IMPRESSION: 1. Atrial fibrillation, chronic and persistent and he has been on anticoagulation therapy. 2. History of sick sinus syndrome and permanent pacemaker palpation. 3. 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 4. Chronic kidney disease and he is being evaluated and monitored by nephrology. 5. Recent alcohol withdrawal. 6. History of right-sided pneumothorax. 7. Bacteremia with abnormal transesophageal echocardiogram (DENISSE). Probably vegetation on the aortic valve for which he has been on nafcillin. It was a pleasure to participate in the care of Mr. Jason Medrano for his underlying cardiac condition. He appears to be stable. I will continue to monitor along with you. He denies any bleeding. Please do not hesitate to call for any question. INTERPRETATION
[2019-06-19 08:00] VITALS: BP 94/54
[2019-06-19] MEDS: FOLIC ACID 1 MG TAB PO SCH (08:45)
[2019-06-19] MEDS: THIAMINE 100 MG TAB PO SCH (08:46)
[2019-06-19] MEDS: APIXABAN 2.5 MG TAB (ELIQUIS) PO SCH ×2 (08:46→20:26)
[2019-06-19] MEDS: MULTIVITAMINS/MINERALS THERAP 1 TAB PO SCH (08:46)
[2019-06-19] MEDS: OMEPRAZOLE 20 MG CAP PO SCH (08:46)
[2019-06-19] MEDS: CALCITRIOL 0.25 MCG CAP (S0169) PO SCH (08:46)
[2019-06-19] MEDS: ceFAZolin SOD 1 GM in IV 1 EA IV SCH ×2 (08:46→20:26)
[2019-06-19 08:59] LABS: CALCIUM LEVEL 7.2 MG/DL (8.8-10.2); CREATININE FOR GFR 2.97 MG/DL (0.70-1.30); GLOMERULAR FILTRATION RATE 21.5 (>35); POTASSIUM SERUM 3.4 MEQ/L (3.5-5.1)
[2019-06-19 12:00] VITALS: BP 126/85
[2019-06-19 16:00] VITALS: BP 144/78
[2019-06-19] MEDS ORDERED: POTASSIUM CHLORIDE 10 MEQ SR TABLET PO ONE (17:30)
--- NOTE | 2019-06-19 17:30 | IPNPDOC ---
Date Seen The patient was seen on 06/19/19. Progress Note SUBJECTIVE: 84-year-old male with past medical history of atrial fibrillation on anticoagulation, congestive heart failure, chronic kidney disease and hypertension was initially admitted for pneumothorax after an outpatient thoracentesis. Patient underwent chest tube placement; patient's hospitalization was compensated by MSSA bacteremia/endocarditis along with acute kidney injury on chronic kidney disease. Patient is being treated with Ancef for the bacteremia, underwent DENISSE which was inconclusive, will be treated as if he has endocarditis. Patient is resting comfortably in bed, without any complaints at this time, denies any shortness of breath, chest pain, nausea, vomiting, abdominal pain or diarrhea. 10 point review of system is negative except for above PHYSICAL EXAMINATION: VITAL SIGNS: Please see below. GENERAL: No distress HEENT: Normocephalic, atraumatic, moist mucous membranes NECK: Supple CARDIOVASCULAR EXAMINATION: , Irregularly irregular RESPIRATORY EXAMINATION: Scattered rhonchi ABDOMINAL EXAMINATION: Soft, nontender, nondistended, positive bowel sounds EXTREMITIES: Lower extremity edema SKIN: No rash NEUROLOGICAL EXAMINATION: Alert and oriented 3, no focal deficits PSYCHIATRIC EXAMINATION: Calm and cooperative LABORATORY DATA, IMAGING STUDIES, MICROBIOLOGY: Please see below. ASSESSMENT AND PLAN: 84-year-old male with multiple medical comorbidities who w as initially admitted for pneumothorax with subsequent development of MSSA bacteremia and acute kidney injury. PROBLEMS: 1. Acute on chronic kidney disease: Slightly improved, IV fluids discontinued due to significant third spacing, nephrology following, will monitor. 2. Atrial fibrillation: Continue Eliquis for anticoagulation and atenolol for rate control. 3. MSSA bacteremia: DENISSE inconclusive, we'll treat as endocarditis, continue Ancef, ID following. 4) congestive heart failure: Preserved ejection fraction, clinically volume overloaded, IV fluids discontinued, will monitor. DVT prophylaxis: on Eliquis GI prophylaxis: PPI VS, I&O, 24H, Fishbone Vital Signs/I&O Vital Signs Date Time Temp Pulse Resp B/P (MAP) Pulse Ox O2 Delivery O2 Flow Rate FiO2 06/19/19 16:00 98.3 65 18 144/78 (100) 95 Room Air 06/15/19 20:48 2.0 I&O- Last 24 Hours up to 6 AM 06/19/19 06:00 Intake Total 1380 ml Output Total 550 ml Balance 830 ml Laboratory Data 24H LABS Laboratory Tests 2 06/19/19 08:12: Anion Gap 9, Glomerular Filtration Rate 21.5L, Calcium Level 7.2L CBC/BMP Laboratory Tests 06/19/19 08:12 Microbiology Microbiology 06/11/19 Blood Culture - Final, Complete NO GROWTH AFTER 5 DAYS 06/10/19 Blood Culture - Final, Complete NO GROWTH AFTER 5 DAYS MARIEL VEGAS MD Jun 19, 2019 17:30
--- NOTE | 2019-06-19 18:04 | IPN ---
DATE: 06/19/2019 SUBJECTIVE: Jason is seen and examined this morning at the bedside. I had a lengthy discussion with his daughter, Josey, who was present as well. His urine output remains poor. He reports he got out of bed and walked around the room with physical therapy yesterday. He denied shortness of breath. There are no uremic signs or symptoms. He denies nausea, vomiting, lightheadedness upon standing, or shortness of breath at rest. Temperature 97.8, pulse 95, respiratory rate 18, blood pressure 126/85, saturating 93% on room air. Intake yesterday was 1380, urine output yesterday was 550, weight in the bed scale today is 82.8 kg which is increased from prior. GENERAL: The patient is seen lying in bed, awake, alert and oriented, in no apparent distress. Extraocular muscles are intact. Tongue is moist. Neck veins look at most minimally elevated. Lung sounds are diminished at the right base, otherwise clear. Heart sounds are irregular. There is trace leg edema. The abdomen is soft and nontender. There is a Galvan catheter with minimal urine. NEUROLOGIC: He is awake, alert and oriented times three, interactive and conversational. SKIN: Normal temperature and turgor. LABORATORY DATA: Sodium 145, potassium 3.4, bicarbonate 20, BUN 40, creatinine 2.9. Hemoglobin 9.2, white count 10.8. INPATIENT MEDICATIONS: I discontinued the normal saline. His remainder of medications are unchanged from prior. PROBLEMS: 1. Oligoanuric acute kidney injury on chronic kidney disease (CKD), stage IIIB. Baseline creatinine 1.6 to 2.2. This is his second acute kidney injury on this admission. It is felt to be multifactorial and secondary to labile blood pressures, possible adverse drug reaction (interstitial nephritis related to nafcillin), endocarditis. He has received IV fluids since the weekend and I am discontinuing them today, as he no longer looks dry and I do not want to cause fluid overload. His nafcillin was switched to cephazolin renally dosed after discussion with infectious diseases. His blood pressures on reduced dose of atenolol are better with systolic ranging from 90s to 120. Urine output remains poor. There is no urgent hemodialysis indication at present but I have discussed with his daughters, Josey and Keshia, that he may progress to dialysis needs and we will continue to monitor for the same. 2. Congestive heart failure. IV fluids are being discontinued. He no longer looks dry. He is encouraged for oral intake. He has a known pleural effusion on the right. Respiratory-tao, he continues to be comfortable on room air and fluid status is acceptable. 3. Atrial fibrillation. Rate controlled with atenolol 50 mg by mouth daily. Systolic blood pressures have ranged from 90s to 120s in the past 24 hours. IV fluids are stopped. 4. 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 IV nafcillin was switched to cephazolin renally dosed after discussion with infectious diseases. I note his white count has risen in the past day. 5. Secondary hyperparathyroidism of renal origin. Parathyroid hormone (PTH) of 230. He was started on calcitriol.
[2019-06-19 20:00] VITALS: BP 142/88
[2019-06-19] MEDS: traZODone 100 MG TAB PO SCH (20:26)
[2019-06-19] MEDS: ACETAMINOPHEN 500 MG TAB PO SCH (20:26)
[2019-06-19] MEDS: atenoloL 50 MG TAB PO SCH (20:29)
[2019-06-20] VITALS (7 sets, daily range): BP systolic 107–150; BP diastolic 65–88
[2019-06-20] MEDS: SODIUM CHLORIDE 0.9% INJ 10 ML SYR IV SCH ×2 (05:33→17:28)
[2019-06-20] MEDS: SLF 3 ML SYR IV SCH ×2 (05:33→14:00)
[2019-06-20 05:42] LABS: HEMATOCRIT 26.9 % (42.0-52.0); MEAN CORPUSCULAR HEMOGLOBIN 33.2 pg (27.0-33.0); MEAN CORPUSCULAR HGB CONC 33.5 g/dl (32.0-36.5); MEAN CORPUSCULAR VOLUME 99.3 fl (80.0-96.0); PLATELET COUNT, AUTOMATED 253 10^3/uL (150-450); RED BLOOD COUNT 2.71 10^6/uL (4.30-6.10); WHITE BLOOD COUNT 10.9 10^3/uL (4.0-10.0)
[2019-06-20 06:07] LABS: CALCIUM LEVEL 7.4 MG/DL (8.8-10.2); CREATININE FOR GFR 2.61 MG/DL (0.70-1.30); MAGNESIUM LEVEL 2.3 MG/DL (1.8-2.4); PHOSPHORUS LEVEL 3.6 MG/DL (2.5-4.9); POTASSIUM SERUM 3.5 MEQ/L (3.5-5.1)
[2019-06-20] MEDS: LEVALBUTEROL 1.25 MG/0.5 ML CONCENTRATE NEB INH SCH ×4 (07:59→21:17)
[2019-06-20] MEDS ORDERED: POTASSIUM CHLORIDE 10 MEQ SR TABLET PO ONE (09:00)
[2019-06-20] MEDS: FOLIC ACID 1 MG TAB PO SCH (09:24)
[2019-06-20] MEDS: CALCITRIOL 0.25 MCG CAP (S0169) PO SCH (09:25)
[2019-06-20] MEDS: OMEPRAZOLE 20 MG CAP PO SCH (09:25)
[2019-06-20] MEDS: APIXABAN 2.5 MG TAB (ELIQUIS) PO SCH ×2 (09:25→21:09)
[2019-06-20] MEDS: THIAMINE 100 MG TAB PO SCH (09:25)
[2019-06-20] MEDS: MULTIVITAMINS/MINERALS THERAP 1 TAB PO SCH (09:25)
[2019-06-20] MEDS: ceFAZolin SOD 1 GM in IV 1 EA IV SCH ×2 (09:26→21:09)
[2019-06-20] MEDS: SIMETHICONE 80 MG CHEW TAB PO SCH ×3 (11:47→21:09)
[2019-06-20] MEDS: ONDANSETRON 4MG/2ML VIAL (J2405) IV PRN (13:33)
--- NOTE | 2019-06-20 18:02 | IPNPDOC ---
Date Seen The patient was seen on 06/20/19. Progress Note SUBJECTIVE: 84-year-old male with past medical history of atrial fibrillation on anticoagulation, congestive heart failure, chronic kidney disease and hypertension was initially admitted for pneumothorax after an outpatient thoracentesis. Patient underwent chest tube placement; patient's hospitalization was compensated by MSSA bacteremia/endocarditis along with acute kidney injury on chronic kidney disease. Patient is being treated with Ancef for the bacteremia, underwent DENISSE which was inconclusive, will be treated as if he has endocarditis. Patient is resting comfortably in bed, without any complaints at this time, denies any shortness of breath, chest pain, nausea, vomiting, abdominal pain or diarrhea. 06/20/19 Patient seen in the morning, comfortable in bed, reports increased fatigue compared to yesterday, no other complaints. He denies any shortness of breath, chest pain, nausea, vomiting, abdominal pain or diarrhea. 10 point review of system is negative except for above PHYSICAL EXAMINATION: VITAL SIGNS: Please see below. GENERAL: No distress HEENT: Normocephalic, atraumatic, moist mucous membranes NECK: Supple CARDIOVASCULAR EXAMINATION: Irregularly irregular RESPIRATORY EXAMINATION: Scattered rhonchi ABDOMINAL EXAMINATION: Soft, nontender, nondistended, positive bowel sounds EXTREMITIES: Lower extremity edema SKIN: No rash NEUROLOGICAL EXAMINATION: Alert and oriented 3, no focal deficits PSYCHIATRIC EXAMINATION: Calm and cooperative LABORATORY DATA, IMAGING STUDIES, MICROBIOLOGY: Please see below. ASSESSMENT AND PLAN: 84-year-old male with multiple medical comorbidities who was initially admitted for pneumothorax with subsequent development of MSSA bacteremia and acute kidney injury. PROBLEMS: 1. Acute on chronic kidney disease: Improving, nephrology following, will monitor. 2. Atrial fibrillation: Continue Eliquis for anticoagulation and atenolol for rate control. 3. MSSA bacteremia: DENISSE inconclusive, we'll treat as endocarditis, continue Ancef, evaluated by ID. 4) congestive heart failure: Preserved ejection fraction, volume status acceptable, no need for aggressive diuresis at this time, we'll monitor. DVT prophylaxis: on Eliquis GI prophylaxis: PPI VS, I&O, 24H, Fishbone Vital Signs/I&O Vital Signs Date Time Temp Pulse Resp B/P (MAP) Pulse Ox O2 Delivery O2 Flow Rate FiO2 06/20/19 16:00 97.0 90 16 136/81 (99) 92 Room Air 06/15/19 20:48 2.0 I&O- Last 24 Hours up to 6 AM 06/20/19 06:00 Intake Total 745 ml Output Total 1000 ml Balance -255 ml Laboratory Data 24H LABS Laboratory Tests 2 06/20/19 05:05: Nucleated Red Blood Cells % (auto) 0.0, Anion Gap 7L, Glomerular Filtration Rate 25.0L, Calcium Level 7.4L, Phosphorus Level 3.6#, Magnesium Level 2.3 CBC/BMP Laboratory Tests 06/20/19 05:05 Microbiology Microbiology 06/11/19 Blood Culture - Final, Complete NO GROWTH AFTER 5 DAYS 06/10/19 Blood Culture - Final, Complete NO GROWTH AFTER 5 DAYS MARIEL VEGAS MD Jun 20, 2019 18:02
[2019-06-20] MEDS: traZODone 100 MG TAB PO SCH (21:17)
[2019-06-20] MEDS: atenoloL 50 MG TAB PO SCH (21:17)
[2019-06-20] MEDS: ACETAMINOPHEN 500 MG TAB PO SCH (21:17)
[2019-06-21] VITALS: BP 122/79
[2019-06-21 04:00] VITALS: BP 141/78
[2019-06-21] MEDS: SODIUM CHLORIDE 0.9% INJ 10 ML SYR IV SCH ×2 (05:36→18:11)
--- NOTE | 2019-06-21 06:59 | IPN ---
DATE OF SERVICE: 06/20/2019 Mr. Jason Medrano was seen earlier today, he was supine in bed in no acute distress at rest. He stated he thinks he feels better. He has been ambulating. There is no report of fever. There is no chest pain and no orthopnea noted. There is no focal manifestation. There is no report of bleeding. On physical examination, the patient is alert and oriented, in no acute distress at rest. His vital signs when I saw him revealed a blood pressure of 158/88 with a pulse of 89, respirations 16, a maximum temperature of 98.2 degrees Fahrenheit, with an oxygen saturation of 92-99% on room air. Prior blood pressure was 136/81. Examination of the Head: Atraumatic. Neck: Neck is supple and with extended jugular. Lungs did not reveal any wheezing or crackles. The heart examination revealed irregular heart sounds without gallops. The PMI is displaced inferiorly and laterally. There is no rub. The abdomen is unremarkable. Extremities reveal trace lower leg/ankle edema. Neurological examination is negative for focal deficit. Labs: CBC done today revealed a WBC of 10.9, hemoglobin 9.0, hematocrit 26.9 and platelet 153,000. BMP revealed a sodium of 144, potassium 3.5, chloride 117, CO2 20, BUN 38, creatinine 2.61, GFR 25.0, fasting glucose 86 and calcium 7.4. Magnesium is 2.3. IMPRESSION: 1. Atrial fibrillation, in a patient with underlying sick sinus syndrome and permanent pacemaker implantation. He is currently on anticoagulation therapy for prevention of thromboembolic events and he will continue same. 2. Chronic kidney disease. He is being monitored by nephrology. His kidney function seems to have improved. 3. Bacteremia with abnormal transesophageal echocardiogram/DENISSE that revealed probably vegetation on the aortic valve. He has been on nafcillin. 4. History of alcohol withdrawal. 5. History of right-sided pneumothorax. It was a pleasure to participate in the care of Mr. Jason Medrano for his underlying cardiac condition. I will continue to monitor him along with you. He appears to be stable from a cardiac point of view.
[2019-06-21 07:03] LABS: HEMATOCRIT 28.1 % (42.0-52.0); HEMOGLOBIN 9.4 g/dl (13.5-17.5); MEAN CORPUSCULAR HEMOGLOBIN 33.6 pg (27.0-33.0); MEAN CORPUSCULAR HGB CONC 33.5 g/dl (32.0-36.5); MEAN CORPUSCULAR VOLUME 100.4 fl (80.0-96.0); PLATELET COUNT, AUTOMATED 254 10^3/uL (150-450); WHITE BLOOD COUNT 10.6 10^3/uL (4.0-10.0)
[2019-06-21 07:25] LABS: CALCIUM LEVEL 7.7 MG/DL (8.8-10.2); CREATININE FOR GFR 2.15 MG/DL (0.70-1.30); GLOMERULAR FILTRATION RATE 31.3 (>35); POTASSIUM SERUM 4.2 MEQ/L (3.5-5.1)
[2019-06-21 08:00] VITALS: BP 121/79
[2019-06-21] MEDS: SIMETHICONE 80 MG CHEW TAB PO SCH ×3 (08:49→20:11)
[2019-06-21] MEDS: OMEPRAZOLE 20 MG CAP PO SCH (08:49)
[2019-06-21] MEDS: THIAMINE 100 MG TAB PO SCH (08:49)
[2019-06-21] MEDS: ceFAZolin SOD 1 GM in IV 1 EA IV SCH (08:49)
[2019-06-21] MEDS: FOLIC ACID 1 MG TAB PO SCH (08:49)
[2019-06-21] MEDS: MULTIVITAMINS/MINERALS THERAP 1 TAB PO SCH (08:49)
[2019-06-21] MEDS: APIXABAN 2.5 MG TAB (ELIQUIS) PO SCH ×2 (08:49→20:11)
[2019-06-21] MEDS: CALCITRIOL 0.25 MCG CAP (S0169) PO SCH (08:49)
[2019-06-21] MEDS: LEVALBUTEROL 1.25 MG/0.5 ML CONCENTRATE NEB INH SCH ×4 (09:03→19:25)
[2019-06-21 12:00] VITALS: BP 142/83
--- NOTE | 2019-06-21 12:55 | IPNPDOC ---
Date Seen The patient was seen on 06/21/19. Progress Note SUBJECTIVE: 84-year-old male with past medical history of atrial fibrillation on anticoagulation, congestive heart failure, chronic kidney disease and hypertension was initially admitted for pneumothorax after an outpatient thoracentesis. Patient underwent chest tube placement; patient's hospitalization was compensated by MSSA bacteremia/endocarditis along with acute kidney injury on chronic kidney disease. Patient is being treated with Ancef for the bacteremia, underwent DENISSE which was inconclusive, will be treated as if he has endocarditis. Patient is resting comfortably in bed, without any complaints at this time, denies any shortness of breath, chest pain, nausea, vomiting, abdominal pain or diarrhea. 06/20/19 Patient seen in the morning, comfortable in bed, reports increased fatigue compared to yesterday, no other complaints. He denies any shortness of breath, chest pain, nausea, vomiting, abdominal pain or diarrhea. 06/21/19 Patient is seen in the morning, reports improvement from yesterday, slightly fatigued. He has had improvement in getting out of bed and able to work with physical therapy. He denies any shortness of breath, chest pain, nausea, vomiting, abdominal pain or diarrhea. 10 point review of system is negative except for above PHYSICAL EXAMINATION: VITAL SIGNS: Please see below. GENERAL: No distress HEENT: Normocephalic, atraumatic, moist mucous membranes NECK: Supple CARDIOVASCULAR EXAMINATION: Irregularly irregular RESPIRATORY EXAMINATION: Basilar rhonchi ABDOMINAL EXAMINATION: Soft, nontender, nondistended, positive bowel sounds EXTREMITIES: Lower extremity edema SKIN: No rash NEUROLOGICAL EXAMINATION: Alert and oriented 3, no focal deficits PSYCHIATRIC EXAMINATION: Calm and cooperative LABORATORY DATA, IMAGING STUDIES, MICROBIOLOGY: Please see below. ASSESSMENT AND PLAN: 84-year-old male with multiple medical comorbidities who was initially admitted for pneumothorax with subsequent development of MSSA bacteremia and acute kidney injury. PROBLEMS: 1. Acute on chronic kidney disease: Improved, close to patient's baseline, nephrology following, will monitor. 2. Atrial fibrillation: Continue Eliquis for anticoagulation and atenolol for rate control. 3. MSSA bacteremia/endocarditis: DENISSE inconclusive, continue Ancef, evaluated by ID. 4) congestive heart failure: Preserved ejection fraction, volume status acceptable, no need for aggressive diuresis at this time, we'll monitor. DVT prophylaxis: on Eliquis GI prophylaxis: PPI VS, I&O, 24H, Fishbone Vital Signs/I&O Vital Signs Date Time Temp Pulse Resp B/P (MAP) Pulse Ox O2 Delivery O2 Flow Rate FiO2 06/21/19 12:00 96.4 91 16 142/83 (102) 97 Room Air 06/15/19 20:48 2.0 I&O- Last 24 Hours up to 6 AM 06/21/19 06:00 Intake Total 630 ml Output Total 700 ml Balance -70 ml Laboratory Data 24H LABS Laboratory Tests 2 06/21/19 06:47: Nucleated Red Blood Cells % (auto) 0.0, Anion Gap 8, Glomerular Filtration Rate 31.3L, Calcium Level 7.7L CBC/BMP Laboratory Tests 06/21/19 06:47 Microbiology Microbiology 06/11/19 Blood Culture - Final, Complete NO GROWTH AFTER 5 DAYS MARIEL VEGAS MD Jun 21, 2019 12:55
--- NOTE | 2019-06-21 13:37 | IPN ---
DATE OF SERVICE: 06/20/2019 SUBJECTIVE: Patient seen and examined this morning at the bedside. He complains of some crampy abdominal pain, reports he had a bowel movement last night, feels a little nauseous, denies vomiting or diarrhea. He has urine output is improving as is his renal function. He reports that he has been up and walking around to the bathroom. Vital signs: Temperature 98.2, pulse 89, respiratory rate 16, blood pressure 150/88, saturating 99% on room air. Intake yesterday was 980, urine output yesterday was 825, net positive 120, weight on the bed scale today is 81.9 kg. General: The patient is seen lying in bed awake, alert, oriented and comfortable in no apparent distress. Extraocular muscles are intact. Tongue is moist. Neck veins are at most minimally elevated. Lung sounds are diminished at the right base, otherwise clear. Heart sounds are irregular. There is trace to 1+ leg edema. Abdomen is soft and mildly tender to palpation in the epigastrium. Neurologic: He is awake, alert, oriented times three, interactive and conversational. Skin normal temperature and turgor. LABORATORIES: White count 10.9, hemoglobin 9.0, platelet 253, sodium 144, potassium 3.5, bicarbonate 20, BUN 38, creatinine 2.6. INPATIENT MEDICATIONS: He continues on cephazolin 1 gram IV q. 12 hours. He received potassium 40 mEq p.o. x1. He was started on simethicone. The remainder medications are unchanged from prior. PROBLEMS 1. Acute kidney injury (YUVAL) on chronic kidney disease (CKD) stage IIIB. He is now nonoliguric. His baseline creatinine is around 1.6-2.2. His urine output has improved. His renal function is improving as well. This is his second acute kidney injury on this admission and is felt to be multifactorial and secondary to his previous labile blood pressures, possible adverse drug reaction (interstitial nephritis related to nafcillin), endocarditis. We stopped the IV fluids yesterday. He is tolerating oral intake well. His blood pressures are fairly well-controlled on reduced dose of atenolol without recurrent documented hypotension. 2. Congestive heart failure. IV fluids were previously stopped yesterday. No need for diuretics at present. Will continue to keep an eye on his fluid status. 3. Atrial fibrillation rate controlled with atenolol 50 mg p.o. q.h.s. Blood pressures have been fairly stable without recurrent documented hypotension. 4. Endocarditis of the aortic valve with MSSA. Continues on renally dosed cephazolin and if his renal function continues to improve we will adjust the cephazolin dose.
[2019-06-21] MEDS ORDERED: FUROSEMIDE 40 MG TAB PO ONE (14:00)
[2019-06-21 15:00] VITALS: BP 97/68
[2019-06-21] MEDS: atenoloL 50 MG TAB PO SCH (20:11)
[2019-06-21] MEDS: ACETAMINOPHEN 500 MG TAB PO SCH (20:11)
[2019-06-21] MEDS: traZODone 100 MG TAB PO SCH (20:11)
--- NOTE | 2019-06-21 21:14 | IPN ---
DATE: 06/21/2019 SUBJECTIVE: The patient is seen and examined at the bedside this morning. He was pleased, as we had informed him that his renal function has improved today with his creatinine going down from yesterday. We have encouraged him to get out of bed, sit in the chair and to be as mobile as possible. The patient reports that he is feeling well. He denies any nausea, vomiting, diarrhea, or constipation. He no longer has the abdominal pain that he previously had. Otherwise, the patient had no changes overnight. OBJECTIVE: VITAL SIGNS: Temperature 97.5, pulse 64, respiratory rate 17, blood pressure 97/68 with a MAP of 78, pulse oximetry is 94% on room air. Input and output: He is net negative 160 balance with urine total in the last 24 hours of about 1200 mL. His current weight is 81.8 kg. GENERAL: He is laying in bed. He is calm, cooperative and in no acute distress. He is very pleasant. He is speaking in full sentences. HEENT: Extraocular movements are intact. Pupils are equally round and reactive to light. Head is normocephalic, atraumatic. NECK: Supple with no thyromegaly and no lymphadenopathy. Jugular venous distention (JVD) is measured at about 7 cm above the sternal angle. CHEST: Even chest rise. LUNGS: Clear to auscultation bilaterally with decreased breath sounds in the right lower and middle lobes. No adventitious breath sounds are appreciated. HEART: Irregularly irregular with no murmurs, rubs or gallops. ABDOMEN: Soft and nontender to palpation with positive bowels sounds and without masses or organomegaly. EXTREMITIES: He does have 1+ pitting edema bilaterally. SKIN: He has several lesions on his arms and legs. Old bruising. PSYCHIATRIC: He is awake, alert and oriented times three. NEUROLOGIC: His cranial nerves II through XII are intact with no obvious focal deficits. LABORATORIES: His complete blood count (CBC) demonstrates a white blood cell count of 10.6, hemoglobin 9.4, hematocrit 28.1, platelet count of 254. His chemistries show a sodium of 145, potassium 4.2, BUN 37, creatinine 2.15. No other laboratories or imaging were done. PROBLEMS: 1. Acute kidney injury on chronic kidney disease stage III B. It seems as though his baseline creatinine is 1.6 to 2.2 and it seems as though his renal function is improving. Today, his creatinine is down 2.15. He does look somewhat fluid overloaded, so we will give him a one time dose of 40 mg of Lasix. Otherwise, we will continue to monitor his renal function and are relieved that it has improved this much. His urine output has also improved as well. He does have an indwelling catheter at this time and we will keep it in for the time being and plan to remove it in the coming days. 2. Congestive heart failure (CHF). As stated before, we will give him a one time dose of Lasix today, as he is somewhat fluid overloaded. 3. Atrial fibrillation with rate control with atenolol 50 mg by mouth at night. Blood pressures have been stable. 4. 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 Continue on renally dosed cefazolin and if his renal function continues to improve, we will adjust that dose of the cefazolin. MTDD
[2019-06-21] MEDS: ceFAZolin SOD 1 GM in D5W MINI-BAG PLUS 50 ML IV SCH (21:53)
[2019-06-21 22:00] VITALS: BP 97/68
[2019-06-22] MEDS: SODIUM CHLORIDE 0.9% INJ 10 ML SYR IV SCH ×2 (05:20→17:17)
[2019-06-22 06:00] VITALS: BP 114/75
[2019-06-22] MEDS: LEVALBUTEROL 1.25 MG/0.5 ML CONCENTRATE NEB INH SCH ×4 (06:34→20:00)
[2019-06-22 07:14] LABS: HEMATOCRIT 29.2 % (42.0-52.0); HEMOGLOBIN 9.6 g/dl (13.5-17.5); MEAN CORPUSCULAR HEMOGLOBIN 33.1 pg (27.0-33.0); MEAN CORPUSCULAR HGB CONC 32.9 g/dl (32.0-36.5); MEAN CORPUSCULAR VOLUME 100.7 fl (80.0-96.0); PLATELET COUNT, AUTOMATED 268 10^3/uL (150-450); WHITE BLOOD COUNT 10.8 10^3/uL (4.0-10.0)
--- NOTE | 2019-06-22 07:33 | IPN ---
DATE OF SERVICE: 06/19/2019 Mr. Jason Thoa was seen earlier in the evening. He was intubated and no acute distress at rest. He denies any chest pain, shortness of breath, palpitations. He stated he has been ambulating, and he does have physical therapy. There is no report of bleeding. PHYSICAL EXAMINATION: The patient is alert and oriented, in no acute distress at rest, and his vital signs earlier this evening revealed blood pressure of 144/78 with a pulse of 65, respiration 18, and his maximum temperature was 98.3 degrees Fahrenheit with an oxygen saturation of 95% on room air. He has a positive fluid balance for 06/18/2019 of about 830 mL. Examination of the head: Atraumatic. Neck is supple and no JVD appreciated. The lungs did not reveal any wheezing or crackles. The heart examination revealed irregular heart sounds without gallops. The PMI is displaced inferiorly and laterally. There is no rub. Abdomen is soft and nontender. Extremities revealed trace bilateral lower leg edema. Neurological examination grossly was negative for focal deficit. LABS: BMP done today revealed a sodium of 145, potassium 3.4, chloride 116, CO2 20, BUN 40, creatinine 2.97, GFR 21.5, and fasting glucose 73 with a calcium of 7.2. IMPRESSION: 1. Atrial fibrillation, chronic and persistent. 2. History of sick sinus syndrome and permanent pacemaker implantation. 3. 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 4. Chronic kidney disease. 5. Recent alcohol withdrawal. 6. History of right-sided pneumothorax. 7. Bacteremia with abnormal transesophageal echocardiogram / DENISSE revealing vegetation in the aortic valve. Mr. Jason Medrano seems to be stable from a cardiac point of view, and we will continue current management. His cardiac meds were reviewed, and I will continue the same for now. He is on a small dose of Eliquis for prevention of thromboembolic events, and he denies any bleeding. He is on IV antibiotics for his presumed bacterial endocarditis. It was a pleasure to participate the care of Mr. Jason Medrano for his underlying cardiac condition. Once again, he appears to be stable, and I will monitor him along with you. Please do not hesitate to call if you have any questions.
[2019-06-22 07:41] LABS: CALCIUM LEVEL 8.4 MG/DL (8.8-10.2); CREATININE FOR GFR 2.19 MG/DL (0.70-1.30); GLOMERULAR FILTRATION RATE 30.6 (>35); POTASSIUM SERUM 4.5 MEQ/L (3.5-5.1)
[2019-06-22] MEDS ORDERED: FLUBLOK(EGG FREE)(QUAD)INFLUENZA VACC 0.5ML SYRINGE (90682)18YRS&OLDER IM ONE (09:00)
[2019-06-22] MEDS: ceFAZolin SOD 1 GM in D5W MINI-BAG PLUS 50 ML IV SCH ×2 (09:22→21:15)
[2019-06-22] MEDS: THIAMINE 100 MG TAB PO SCH (09:23)
[2019-06-22] MEDS: APIXABAN 2.5 MG TAB (ELIQUIS) PO SCH ×2 (09:23→21:14)
[2019-06-22] MEDS: CALCITRIOL 0.25 MCG CAP (S0169) PO SCH (09:23)
[2019-06-22] MEDS: OMEPRAZOLE 20 MG CAP PO SCH (09:23)
[2019-06-22] MEDS: FOLIC ACID 1 MG TAB PO SCH (09:23)
[2019-06-22] MEDS: MULTIVITAMINS/MINERALS THERAP 1 TAB PO SCH (09:23)
[2019-06-22] MEDS: SIMETHICONE 80 MG CHEW TAB PO SCH ×3 (09:23→21:14)
[2019-06-22] MEDS: ONDANSETRON 4MG/2ML VIAL (J2405) IV PRN ×2 (09:38→14:28)
[2019-06-22] MEDS ORDERED: FLUBLOK(EGG FREE)(QUAD)INFLUENZA VACC 0.5ML SYRINGE (90682)18YRS&OLDER IM PRN (10:00)
[2019-06-22] MEDS: SODIUM CHLORIDE 0.9% INJ 10 ML SYR IV PRN (10:32)
[2019-06-22 16:00] VITALS: BP 96/58
--- NOTE | 2019-06-22 19:43 | IPN ---
DATE: 06/22/2019 Mr. Medrano is seen and examined at the bedside this morning. He is very calm. He is looking very well. He is sitting up in a chair eating his breakfast. He has no complaints. He states that his appetite is somewhat down and he wishes he could eat more, but he just has no appetite. He is not having any nausea, vomiting, diarrhea or constipation. He did not have any other issues overnight. OBJECTIVE: VITALS: Temperature 97.7, pulse of 98, respiratory rate is 17, blood pressure 114/75, pulse oximetry 94% on room air. Input and output: He is net positive 90 mL. He made 150 mL of urine yesterday. GENERAL: He is sitting up in the chair, very pleasant, calm, cooperative, in no acute distress. HEAD: Normocephalic, atraumatic. HEENT EXAM: Pupils equally round and reactive to light. Extraocular muscles are intact. Mucous membranes are moist. Neck is supple with no thyromegaly, no lymphadenopathy. CHEST: He has even chest rise. LUNGS: Somewhat diminished breath sounds in the right lower and middle lobes, otherwise clear to auscultation bilaterally, but no adventitious breath sounds. CARDIAC: He is irregularly irregular with no murmurs, rubs or gallops that can be heard. ABDOMEN: Soft, nontender to palpation. He has positive bowel sounds. No masses, no organomegaly. LOWER EXTREMITIES: There is no clubbing, cyanosis or edema. SKIN: He has bruising throughout his body, stable. LYMPHATICS: He has no enlarged lymph nodes in the cervical, postauricular or femoral change. PSYCHIATRIC: He is awake, alert and oriented times three with normal mood and normal affect. NEURO: Cranial nerves II/XII are intact with no focal deficits. LABORATORY: Today, his complete blood count (CBC) demonstrates a white blood cell count of 10.8, hemoglobin of 9.6, hematocrit of 29.2 and platelet count of 268. Chemistries: Sodium is 143, potassium is 4.5, chloride is 115, bicarbonate is 24, BUN is 40 from 37 yesterday and creatinine is 2.19 from 2.15 yesterday. He did not have any other labs or imaging done. PLAN: 1. Acute kidney injury on chronic kidney disease stage III-B. The patient's baseline creatinine is 1.6 to 2.2. He seems to have plateaued around 2.15 to 2.3, which is now his new baseline. He was fluid overloaded and produced a good amount of urine with Lasix he was given yesterday. Overall, his renal function has improved. His urine output has improved over time. 2. Congestive heart failure. As stated before, his fluid status has improved with a one time dose of Lasix yesterday. 3. Atrial fibrillation with rate controlled with atenolol 50 mg by mouth at night. Blood pressures have been stable. 4. Endocarditis with aortic valve with Methicillin-Susceptible Staphylococcus aureus (MSSA). Continue with cefazolin 1 gm every 12 hours.
[2019-06-22] MEDS: traZODone 100 MG TAB PO SCH (21:14)
[2019-06-22] MEDS: atenoloL 50 MG TAB PO SCH (21:15)
[2019-06-22] MEDS: ACETAMINOPHEN 500 MG TAB PO SCH (21:15)
[2019-06-22 22:00] VITALS: BP 116/73
--- NOTE | 2019-06-22 22:43 | IPNPDOC ---
Date Seen The patient was seen on 06/22/19. Progress Note SUBJECTIVE: 84-year-old male with past medical history of atrial fibrillation on anticoagulation, congestive heart failure, chronic kidney disease and hypertension was initially admitted for pneumothorax after an outpatient thoracentesis. Patient underwent chest tube placement; patient's hospitalization was compensated by MSSA bacteremia/endocarditis along with acute kidney injury on chronic kidney disease. Patient is being treated with Ancef for the bacteremia, underwent DENISSE which was inconclusive, will be treated as if he has endocarditis. Patient is resting comfortably in bed, without any complaints at this time, denies any shortness of breath, chest pain, nausea, vomiting, abdominal pain or diarrhea. 06/20/19 Patient seen in the morning, comfortable in bed, reports increased fatigue compared to yesterday, no other complaints. He denies any shortness of breath, chest pain, nausea, vomiting, abdominal pain or diarrhea. 06/21/19 Patient is seen in the morning, reports improvement from yesterday, slightly fatigued. He has had improvement in getting out of bed and able to work with physical therapy. He denies any shortness of breath, chest pain, nausea, vomiting, abdominal pain or diarrhea. 06/22/19 Patient seen in the morning, reports nausea today, otherwise without complaints, fatigue persists, good urine output w/ lasix yesterday. 10 point review of system is negative except for above PHYSICAL EXAMINATION: VITAL SIGNS: Please see below. GENERAL: No distress HEENT: Normocephalic, atraumatic, moist mucous membranes NECK: Supple CARDIOVASCULAR EXAMINATION: Irregularly irregular RESPIRATORY EXAMINATION: Diminished/distant on the R side ABDOMINAL EXAMINATION: Soft, nontender, nondistended, positive bowel sounds EXTREMITIES: Lower extremity edema improving SKIN: No rash NEUROLOGICAL EXAMINATION: Alert and oriented 3, no focal deficits PSYCHIATRIC EXAMINATION: Calm and cooperative LABORATORY DATA, IMAGING STUDIES, MICROBIOLOGY: Please see below. ASSESSMENT AND PLAN: 84-year-old male with multiple medical comorbidities who was initially admitted for pneumothorax with subsequent development of MSSA bacteremia and acute kidney injury. PROBLEMS: 1. Acute on chronic kidney disease: Improved, close to patient's baseline, nephrology following, will monitor. Patient appears to have clinically stabilized overall after a prolonged hospitalization; renal & cardiac function seems to be stable and at baseline, will start discharge planning. 2. Atrial fibrillation: Continue Eliquis for anticoagulation and atenolol for rate control. 3. MSSA bacteremia/endocarditis: DENISSE inconclusive, continue Ancef, evaluated by ID. 4) congestive heart failure: Preserved ejection fraction, volume status acceptable, no need for aggressive diuresis at this time, we'll monitor. DVT prophylaxis: on Eliquis GI prophylaxis: PPI VS, I&O, 24H, Fishbone Vital Signs/I&O Vital Signs Date Time Temp Pulse Resp B/P (MAP) Pulse Ox O2 Delivery O2 Flow Rate FiO2 06/22/19 21:15 91 116/73 06/22/19 16:00 97.2 15 96 06/22/19 06:00 Room Air I&O- Last 24 Hours up to 6 AM 06/22/19 06:00 Intake Total 350 ml Output Total 350 ml Balance 0 ml Laboratory Data 24H LABS Laboratory Tests 2 06/22/19 06:53: Nucleated Red Blood Cells % (auto) 0.0, Anion Gap 4L, Glomerular Filtration Rate 30.6L, Calcium Level 8.4L CBC/BMP Laboratory Tests 06/22/19 06:53 MARIEL VEGAS MD Jun 22, 2019 22:43
[2019-06-23] MEDS: SODIUM CHLORIDE 0.9% INJ 10 ML SYR IV SCH ×2 (05:49→17:12)
[2019-06-23 06:00] VITALS: BP 110/68
[2019-06-23 06:06] LABS: HEMATOCRIT 26.5 % (42.0-52.0); HEMOGLOBIN 8.9 g/dl (13.5-17.5); MEAN CORPUSCULAR HEMOGLOBIN 33.7 pg (27.0-33.0); MEAN CORPUSCULAR HGB CONC 33.6 g/dl (32.0-36.5); MEAN CORPUSCULAR VOLUME 100.4 fl (80.0-96.0); PLATELET COUNT, AUTOMATED 251 10^3/uL (150-450); RED BLOOD COUNT 2.64 10^6/uL (4.30-6.10); WHITE BLOOD COUNT 9.1 10^3/uL (4.0-10.0)
[2019-06-23 06:34] LABS: CALCIUM LEVEL 7.9 MG/DL (8.8-10.2); CREATININE FOR GFR 2.18 MG/DL (0.70-1.30); GLOMERULAR FILTRATION RATE 30.8 (>35); POTASSIUM SERUM 4.4 MEQ/L (3.5-5.1)
[2019-06-23] MEDS: LEVALBUTEROL 1.25 MG/0.5 ML CONCENTRATE NEB INH SCH ×4 (07:23→20:11)
[2019-06-23] MEDS: ceFAZolin SOD 1 GM in D5W MINI-BAG PLUS 50 ML IV SCH (08:43)
[2019-06-23] MEDS: SIMETHICONE 80 MG CHEW TAB PO SCH ×3 (08:43→21:22)
[2019-06-23] MEDS: MULTIVITAMINS/MINERALS THERAP 1 TAB PO SCH (08:43)
[2019-06-23] MEDS: OMEPRAZOLE 20 MG CAP PO SCH (08:43)
[2019-06-23] MEDS: THIAMINE 100 MG TAB PO SCH (08:43)
[2019-06-23] MEDS: ONDANSETRON 4MG/2ML VIAL (J2405) IV PRN (08:43)
[2019-06-23] MEDS: APIXABAN 2.5 MG TAB (ELIQUIS) PO SCH ×2 (08:43→21:22)
[2019-06-23] MEDS: FOLIC ACID 1 MG TAB PO SCH (08:43)
[2019-06-23] MEDS: CALCITRIOL 0.25 MCG CAP (S0169) PO SCH (08:43)
[2019-06-23 14:00] VITALS: BP 148/62
--- NOTE | 2019-06-23 16:44 | IPN ---
DATE: 06/23/2019 Mr. Medrano is seen this morning on his bedside. He is currently resting comfortably without any discomfort. He has no dyspnea, chest pain, nausea or vomiting. He does feel somewhat weak. PHYSICAL EXAMINATION: Temperature 97.7 degrees Fahrenheit, heart rate 80 per minute and respiratory rate 16 per minute. Blood pressure 110/68 mmHg and oxygen saturation 94% on room air. Head is atraumatic. Neck supple and without jugular venous distention (JVD) or thyroid enlargement. Heart sounds are regular and lungs clear to auscultation. Abdomen: Soft and nontender. Bowel sounds are normal. Extremities: Without any cyanosis or clubbing. Neurologically, he is grossly intact. Today's labs show WBC count 9.1, hemoglobin 8.9 and hematocrit 26.5. Platelets 251. Sodium 145, potassium 4.4, CO2 25, BUN 39 and creatinine 2.18. PROBLEMS: 1. Acute on chronic kidney disease. Kidney function has leveled off and this is most likely his baseline function. The patient has no uremic symptoms and no electrolyte abnormalities at present and we will continue to monitor his kidney function as needed. 2. Anemia. He does have anemia, most likely related to chronic kidney disease. I will check his iron studies and consider Aranesp if needed. At present, there is no emergent indication for a transfusion. 3. Hypertension. Blood pressure is very well controlled on current antihypertensive medications and no changes are being made today. 4. Secondary hyperparathyroidism. The patient has been on calcitriol 0.25 mcg daily and we will continue with the same. We will check his intact PTH level. 5. Endocarditis. The patient remains on cephazolin 1 gram every 12 hours, which will be continued while we are monitoring his kidney function.
[2019-06-23] MEDS ORDERED: ALTEPLASE 2 MG/2 ML VIAL (J2997 PER 1MG) XX ONE (18:45)
--- NOTE | 2019-06-23 20:44 | REPVR ---
PROCEDURE INFORMATION: Exam: XR Chest, 1 View Exam date and time: 06/23/2019 8:13 PM Age: 84 years old Clinical indication: Device placement; Shortness of breath; Patient HX: PT states SOB, unsuccessful flush of picc; Additional info: Check picc to the right arm for occlusion/kinking TECHNIQUE: Imaging protocol: XR of the chest Views: 1 view. COMPARISON: CR Chest, 2 view PA, Lat 06/09/2019 7:56 AM FINDINGS: Lungs: Bilateral nodular opacities measuring up to 1.8 cm in the right lung. Pleural space: Bilateral pleural effusions, right greater than left. Heart/Mediastinum: Dual chamber cardiac pacer demonstrated. Pacer wires are intact. PICC line enters from the right with the tip located in the superior vena cava. Bones/joints: Unremarkable. IMPRESSION: 1. Bilateral pleural effusions, right greater than left. 2. Bilateral nodular opacities measuring up to 1.8 cm in the right lung. Electronically signed by: Fitz Paniagua On 06/23/2019 20:43:52 PM
--- NOTE | 2019-06-23 20:45 | REPVR ---
PROCEDURE INFORMATION: Exam: XR Right Humerus Exam date and time: 06/23/2019 8:13 PM Age: 84 years old Clinical indication: Device placement; Patient HX: Unsuccessful flush of picc; Additional info: One view; Check for right arm picc occlusion/kinking TECHNIQUE: Imaging protocol: XR Right humerus Views: 2 or more views. COMPARISON: No relevant prior studies available. FINDINGS: Tubes, catheters and devices: PICC line visualized in the medial soft tissues of the upper arm with intact catheter. No kinking of the visualized catheter demonstrated. Bones/joints: Degenerative arthropathy in the acromioclavicular joint. Osteoporosis. Pleural space: Right pleural effusion. Soft tissues: Normal. IMPRESSION: No acute findings. Electronically signed by: Fitz Paniagua On 06/23/2019 20:44:58 PM
[2019-06-23] MEDS: ACETAMINOPHEN 500 MG TAB PO SCH (21:22)
[2019-06-23] MEDS: atenoloL 50 MG TAB PO SCH (21:23)
[2019-06-23] MEDS: traZODone 100 MG TAB PO SCH (21:23)
[2019-06-23 22:00] VITALS: BP 112/73
--- NOTE | 2019-06-23 22:25 | IPNPDOC ---
Date Seen The patient was seen on 06/23/19. Progress Note SUBJECTIVE: 84-year-old male with past medical history of atrial fibrillation on anticoagulation, congestive heart failure, chronic kidney disease and hypertension was initially admitted for pneumothorax after an outpatient thoracentesis. Patient underwent chest tube placement; patient's hospitalization was compensated by MSSA bacteremia/endocarditis along with acute kidney injury on chronic kidney disease. Patient is being treated with Ancef for the bacteremia, underwent DENISSE which was inconclusive, will be treated as if he has endocarditis. Patient is resting comfortably in bed, without any complaints at this time, denies any shortness of breath, chest pain, nausea, vomiting, abdominal pain or diarrhea. 06/20/19 Patient seen in the morning, comfortable in bed, reports increased fatigue compared to yesterday, no other complaints. He denies any shortness of breath, chest pain, nausea, vomiting, abdominal pain or diarrhea. 06/21/19 Patient is seen in the morning, reports improvement from yesterday, slightly fatigued. He has had improvement in getting out of bed and able to work with physical therapy. He denies any shortness of breath, chest pain, nausea, vomiting, abdominal pain or diarrhea. 06/22/19 Patient seen in the morning, reports nausea today, otherwise without complaints, fatigue persists, good urine output w/ lasix yesterday. 06/23/19 Patient comfortable in bed, without complaints, has remained stable with good urine output and oral intake, discharge planning underway. 10 point review of system is negative except for above PHYSICAL EXAMINATION: VITAL SIGNS: Please see below. GENERAL: No distress HEENT: Normocephalic, atraumatic, moist mucous membranes NECK: Supple CARDIOVASCULAR EXAMINATION: Irregularly irregular RESPIRATORY EXAMINATION: Diminished on the R side ABDOMINAL EXAMINATION: Soft, nontender, nondistended, positive bowel sounds EXTREMITIES: Lower extremity edema improving SKIN: No rash NEUROLOGICAL EXAMINATION: Alert and oriented 3, no focal deficits PSYCHIATRIC EXAMINATION: Calm and cooperative LABORATORY DATA, IMAGING STUDIES, MICROBIOLOGY: Please see below. ASSESSMENT AND PLAN: 84-year-old male with multiple medical comorbidities who was initially admitted for pneumothorax with subsequent development of MSSA bacteremia and acute kidney injury. PROBLEMS: 1. Acute on chronic kidney disease: Resolved, now at baseline, nephrology following, will monitor. Discharge planning underway. 2. Atrial fibrillation: Continue Eliquis for anticoagulation and atenolol for rate control. 3. MSSA bacteremia/endocarditis: DENISSE inconclusive, continue Ancef, evaluated by ID. 4) congestive heart failure: Preserved ejection fraction, volume status acceptable, no need for aggressive diuresis at this time, we'll monitor. DVT prophylaxis: on Eliquis GI prophylaxis: PPI VS, I&O, 24H, Fishbone Vital Signs/I&O Vital Signs Date Time Temp Pulse Resp B/P (MAP) Pulse Ox O2 Delivery O2 Flow Rate FiO2 06/23/19 21:23 84 112/73 06/23/19 14:00 97.3 14 97 Room Air I&O- Last 24 Hours up to 6 AM 06/23/19 06:00 Intake Total 740 ml Output Total 685 ml Balance 55 ml Laboratory Data 24H LABS Laboratory Tests 2 06/23/19 05:47: Nucleated Red Blood Cells % (auto) 0.0, Anion Gap 4L, Glomerular Filtration Rate 30.8L, Calcium Level 7.9L CBC/BMP Laboratory Tests 06/23/19 05:47 MARIEL VEGAS MD Jun 23, 2019 22:25
[2019-06-24] MEDS: ceFAZolin SOD 1 GM in D5W MINI-BAG PLUS 50 ML IV SCH ×3 (01:12→21:00)
[2019-06-24 06:00] VITALS: BP 103/59
[2019-06-24] MEDS: SODIUM CHLORIDE 0.9% INJ 10 ML SYR IV SCH ×2 (06:00→18:00)
[2019-06-24 06:20] LABS: HEMOGLOBIN 8.4 g/dl (13.5-17.5); MEAN CORPUSCULAR HEMOGLOBIN 33.9 pg (27.0-33.0); MEAN CORPUSCULAR HGB CONC 31.1 g/dl (32.0-36.5); MEAN CORPUSCULAR VOLUME 108.9 fl (80.0-96.0); PLATELET COUNT, AUTOMATED 231 10^3/uL (150-450); RED BLOOD COUNT 2.48 10^6/uL (4.30-6.10); WHITE BLOOD COUNT 6.2 10^3/uL (4.0-10.0)
[2019-06-24 06:46] LABS: CALCIUM LEVEL 7.9 MG/DL (8.8-10.2); CREATININE FOR GFR 2.02 MG/DL (0.70-1.30); GLOMERULAR FILTRATION RATE 33.6 (>35); PERCENT SATURATION 45.7 % (19.7-50.0); POTASSIUM SERUM 4.2 MEQ/L (3.5-5.1)
[2019-06-24] MEDS: FOLIC ACID 1 MG TAB PO SCH (08:04)
[2019-06-24] MEDS: CALCITRIOL 0.25 MCG CAP (S0169) PO SCH (08:04)
[2019-06-24] MEDS: MULTIVITAMINS/MINERALS THERAP 1 TAB PO SCH (08:05)
[2019-06-24] MEDS: APIXABAN 2.5 MG TAB (ELIQUIS) PO SCH ×2 (08:05→20:56)
[2019-06-24] MEDS: OMEPRAZOLE 20 MG CAP PO SCH (08:05)
[2019-06-24] MEDS: SIMETHICONE 80 MG CHEW TAB PO SCH ×3 (08:05→20:56)
[2019-06-24] MEDS: THIAMINE 100 MG TAB PO SCH (08:05)
[2019-06-24] MEDS: ONDANSETRON 4MG/2ML VIAL (J2405) IV PRN (08:06)
[2019-06-24] MEDS: LEVALBUTEROL 1.25 MG/0.5 ML CONCENTRATE NEB INH SCH ×4 (08:18→20:09)
[2019-06-24] MEDS ORDERED: DARBEPOETIN 100 MCG/0.5 ML *NON-DIALYSIS* SYRINGE (J0881) SC SCH (09:00)
[2019-06-24 10:22] LABS: PTH INTACT 36.7 PG/ML (18.5-88.0)
[2019-06-24] MEDS ORDERED: FUROSEMIDE 40 MG/4 ML VIAL (J1940) IV ONE (11:00)
[2019-06-24 14:00] VITALS: BP 129/71
--- NOTE | 2019-06-24 15:37 | IPNPDOC ---
Date Seen The patient was seen on 06/24/19. Progress Note SUBJECTIVE: 84-year-old male with past medical history of atrial fibrillation on anticoagulation, congestive heart failure, chronic kidney disease and hypertension was initially admitted for pneumothorax after an outpatient thoracentesis. Patient underwent chest tube placement; patient's hospitalization was compensated by MSSA bacteremia/endocarditis along with acute kidney injury on chronic kidney disease. Patient is being treated with Ancef for the bacteremia, underwent DENISSE which was inconclusive, will be treated as if he has endocarditis. Patient is resting comfortably in bed, without any complaints at this time, denies any shortness of breath, chest pain, nausea, vomiting, abdominal pain or diarrhea. 06/20/19 Patient seen in the morning, comfortable in bed, reports increased fatigue compared to yesterday, no other complaints. He denies any shortness of breath, chest pain, nausea, vomiting, abdominal pain or diarrhea. 06/21/19 Patient is seen in the morning, reports improvement from yesterday, slightly fatigued. He has had improvement in getting out of bed and able to work with physical therapy. He denies any shortness of breath, chest pain, nausea, vomiting, abdominal pain or diarrhea. 06/22/19 Patient seen in the morning, reports nausea today, otherwise without complaints, fatigue persists, good urine output w/ lasix yesterday. 06/23/19 Patient comfortable in bed, without complaints, has remained stable with good urine output and oral intake, discharge planning underway. 06/24/19 Patient seen in the morning, comfortable in chair, PICC line stopped working overnight, likely kinked, will go down to IR for assessment/replacement later today, no other complaints. 10 point review of system is negative except for above PHYSICAL EXAMINATION: VITAL SIGNS: Please see below. GENERAL: No distress HEENT: Normocephalic, atraumatic, moist mucous membranes NECK: Supple CARDIOVASCULAR EXAMINATION: Irregularly irregular RESPIRATORY EXAMINATION: Diminished on the R side ABDOMINAL EXAMINATION: Soft, nontender, nondistended, positive bowel sounds EXTREMITIES: Lower extremity edema improving SKIN: No rash NEUROLOGICAL EXAMINATION: Alert and oriented 3, no focal deficits PSYCHIATRIC EXAMINATION: Calm and cooperative LABORATORY DATA, IMAGING STUDIES, MICROBIOLOGY: Please see below. ASSESSMENT AND PLAN: 84-year-old male with multiple medical comorbidities who was initially admitted for pneumothorax with subsequent development of MSSA bacteremia and acute kidney injury. PROBLEMS: 1. Acute on chronic kidney disease: Resolved, now at baseline, Lasix restarted, will monitor renal function with diuresis, nephrology following, ordered to receive Aranesp for chronic anemia likely related to renal dysfunction, discharge planning underway. 2. Atrial fibrillation: Continue Eliquis for anticoagulation and atenolol for rate control. 3. MSSA bacteremia/endocarditis: DENISSE inconclusive, continue Ancef, evaluated by ID. 4) congestive heart failure: Preserved ejection fraction, Lasix restarted, will monitor. DVT prophylaxis: on Eliquis GI prophylaxis: PPI VS, I&O, 24H, Fishbone Vital Signs/I&O Vital Signs Date Time Temp Pulse Resp B/P (MAP) Pulse Ox O2 Delivery O2 Flow Rate FiO2 06/24/19 06:00 96.4 77 18 103/59 (74) 96 Room Air I&O- Last 24 Hours up to 6 AM 06/24/19 06:00 Intake Total 615 ml Output Total 600 ml Balance 15 ml Laboratory Data 24H LABS Laboratory Tests 2 06/24/19 06:02: Nucleated Red Blood Cells % (auto) 0.0, Anion Gap 6L, Glomerular Filtration Rate 33.6L, Calcium Level 7.9L, Iron Level 58L, Total Iron Binding Capacity 127L, Transferrin % Saturation 45.7, Parathyroid Hormone (Intact) 36.7 06/24/19 10:06: Erythrocyte Sedimentation Rate 39H, C-Reactive Protein, Quantitative 4.11H CBC/BMP Laboratory Tests 06/24/19 06:02 MARIEL VEGAS MD Jun 24, 2019 15:37
[2019-06-24] MEDS ORDERED: LIDOCAINE 1% MDV 20ML VIAL As Ordered ONE (17:15)
[2019-06-24] MEDS: FUROSEMIDE 40 MG TAB PO SCH (18:55)
--- NOTE | 2019-06-24 20:47 | IPN ---
DATE: 06/24/2019 Mr. Medrano is seen this morning on his bedside. He is laying in the bed with head end elevated at about 25 degrees. He is feeling weak and somewhat disappointed due to his inability to get up and freely walk around. He denies any nausea, vomiting, fever or chills. He is currently being treated with IV ceftriaxone for endocarditis. PHYSICAL EXAMINATION: Temperature 96.4 degrees Fahrenheit, heart rate 78 per minute and respiratory rate 18 per minute. Blood pressure 103/59 mmHg and oxygen saturation 96% on room air. Head is atraumatic. Neck is supple and JVD is about 8 cm above sternal angle. Heart sounds are regular and there is no pericardial friction rub. Lungs with slightly diminished breath sounds at bases and bibasilar rales are audible. Abdomen soft and nontender and bowel sounds are normal. Extremities have no cyanosis or clubbing. He has developed significant lower extremity edema, particularly on the right lower extremity. Neurologically he is awake and at his baseline mentation. Today's labs show WBC count 6.2, hemoglobin 8.4 and hematocrit 27.0. Platelets 231. Sodium 147, potassium 4.2, CO2 21, BUN 39 and creatinine 2.0. Iron level is 58 and saturation 45.7%. PROBLEMS: 1. Acute kidney injury superimposed on chronic kidney disease. Kidney function remains about the same without any significant change. No uremic symptoms and we will continue to monitor his kidney function closely. 2. Hypervolemia. The patient has developed hypervolemia with significant lower extremity edema. I am going to give him one dose of intravenous Lasix 40 mg today and then also continue with oral Lasix 40 mg twice a day. Electrolytes and renal function will be checked again tomorrow morning. 3. Anemia. His anemia is also gradually getting worse and iron studies are adequate. We will start with Aranesp 100 mcg once a week. No emergent indication for a transfusion at this point. 4. Endocarditis. The patient remains on antibiotics and afebrile. He will continue with the same.
[2019-06-24] MEDS: ACETAMINOPHEN 500 MG TAB PO SCH (20:56)
[2019-06-24] MEDS: traZODone 100 MG TAB PO SCH (20:56)
[2019-06-24] MEDS: atenoloL 50 MG TAB PO SCH (20:56)
[2019-06-24 22:00] VITALS: BP 110/61
[2019-06-25 06:00] VITALS: BP 118/73
[2019-06-25] MEDS: SODIUM CHLORIDE 0.9% INJ 10 ML SYR IV SCH ×2 (06:00→17:29)
[2019-06-25 06:59] LABS: ALBUMIN 1.5 GM/DL (3.2-5.2); CALCIUM LEVEL 8.5 MG/DL (8.8-10.2); CREATININE FOR GFR 1.93 MG/DL (0.70-1.30); GLOMERULAR FILTRATION RATE 35.4 (>35); PHOSPHORUS LEVEL 2.6 MG/DL (2.5-4.9); POTASSIUM SERUM 4.2 MEQ/L (3.5-5.1)
[2019-06-25] MEDS: LEVALBUTEROL 1.25 MG/0.5 ML CONCENTRATE NEB INH SCH ×4 (08:12→19:56)
[2019-06-25] MEDS: THIAMINE 100 MG TAB PO SCH (09:02)
[2019-06-25] MEDS: APIXABAN 2.5 MG TAB (ELIQUIS) PO SCH ×2 (09:02→21:21)
[2019-06-25] MEDS: FOLIC ACID 1 MG TAB PO SCH (09:02)
[2019-06-25] MEDS: ceFAZolin SOD 1 GM in D5W MINI-BAG PLUS 50 ML IV SCH ×2 (09:02→09:03)
[2019-06-25] MEDS: OMEPRAZOLE 20 MG CAP PO SCH (09:02)
[2019-06-25] MEDS: MULTIVITAMINS/MINERALS THERAP 1 TAB PO SCH (09:02)
[2019-06-25] MEDS: FUROSEMIDE 40 MG TAB PO SCH ×2 (09:02→17:29)
[2019-06-25] MEDS: SIMETHICONE 80 MG CHEW TAB PO SCH ×3 (09:03→21:21)
[2019-06-25] MEDS ORDERED: LIDOCAINE 1% MDV 20ML VIAL As Ordered ONE (11:00)
[2019-06-25 14:00] VITALS: BP 118/74
--- NOTE | 2019-06-25 14:48 | IPN ---
DATE: 06/25/2019 Mr. Medrano is seen this morning on his bedside. He is lying in the bed without any acute distress. He denies any nausea, vomiting, dyspnea or chest pain and reports feeling weak. He has not been getting up or ambulating. PHYSICAL EXAMINATION: Temperature 97 degrees Fahrenheit, heart rate 80 per minute and respiratory rate 18 per minute. Blood pressure 118/73 mmHg and oxygen saturation 95% on room air. Head is atraumatic. Neck is supple and jugular venous distention (JVD) is about 8-9 cm above sternal angle. Heart sounds are regular and without a pericardial friction rub. Lungs with slightly diminished breath sounds at bases. Abdomen soft and nontender and bowel sounds are normal. Extremities without any cyanosis or clubbing. Edema on all four limbs is noticed. Neurologically he is awake, alert and oriented times three. Today's chemistry showed sodium 146, potassium 4.2, CO2 27, chloride 114, BUN 41 and creatinine 1.93. PROBLEMS: 1. Acute renal failure superimposed on chronic kidney disease. Kidney function gradually improving and will continue to monitor closely. 2. Hypervolemia and congestive heart failure: Volume status remains decompensated though slightly improved with diuretics since yesterday. We will continue to diurese with Lasix 40 mg twice a day. 3. Hypernatremia: Sodium level is slightly better than yesterday. This is only mild hypernatremia and does not need any urgent intervention. 4. Protein calorie malnutrition: His albumin level is only 1.5. The patient is being encouraged to increase his protein intake. 5. Anemia: The patient has been started on Aranesp 100 mcg once a week. His anemia is related to acute renal failure and endocarditis. 6. Generalized weakness and deconditioning. The patient remains weak and I have encouraged him to get out of bed and sit in the chair most often. He should also start ambulating gradually.
--- NOTE | 2019-06-25 17:51 | REP ---
PICC line insertion under ultrasound guidance. The procedure was performed by JESSE Sutton, under the direct supervision of Dr. Weems. The risks and benefits of the procedure were explained to the patient and informed consent was obtained both verbally and written. Directly prior to the start of the procedure, a formal timeout was completed in the procedure room. The right basilic vein was localized using ultrasound guidance. The skin was prepped and draped in the sterile fashion. 1 ml 1% lidocaine 10 mg/ml was used as a local anesthetic. Using ultrasound guidance the right basilic vein was cannulated and a 0.018 guidewire was inserted and advanced to the SVC using fluoroscopic guidance. The needle was removed and a 4.5 Nigerien dilator and peel-away sheath was inserted over the guidewire. A 4.5 Nigerien single lumen catheter was cut to the length of 35 cm. The dilator was removed and the catheter was inserted over the guide wire with the tip ending in the SVC. The peel-away sheath was removed and the catheter was flushed with heparinized saline as per hospital protocol. The catheter was affixed to the skin and a sterile dressing was applied. The patient tolerated the procedure well and there were no immediate complications. 0.2 minutes of fluoroscopy time was utilized for this procedure. Some fluoroscopic images are performed with last image hold technology. These images require no additional radiation. Reviewed by JESSE Mazariegos 06/25/2019 12:03 P Electronically Signed by Hollis Weems MD 06/25/2019 05:42 P
--- NOTE | 2019-06-25 18:07 | IPN ---
DATE: 06/25/2019 Mr. Medrano is doing well. He is being transferred to [facility] for rehabilitation. He has not had any nausea, vomiting, diarrhea. No cough or shortness of breath. He is not working very hard with physical therapy. PHYSICAL EXAMINATION: Temperature is 97, blood pressure 118/73. Heart: Normal S1, S2, irregular. Lungs slightly diminished at the bases. No wheezes, rales, or rhonchi. Abdomen: Soft, nontender. No hepatosplenomegaly. Extremities: No clubbing or cyanosis. He has trace edema bilaterally. LABORATORY DATA: White count is 6.2, hemoglobin 8.4, hematocrit 27, platelets 231. ESR 39, down from 63. Sodium 146, potassium 4.2, chloride 114, bicarbonate 27, BUN 41, creatinine 1.93, glucose 104, calcium 8.5, phosphorus 2.6. CRP 4.11, down from 12.7. Cefazolin dose is 1 gram intravenous (IV) every 12 hours, furosemide 40 mg by mouth twice a day, Aranesp 100 mcg Monday at 9. Blood cultures were positive on June 07 for methicillin-sensitive Staphylococcus aureus (MSSA) and negative on June 10 and June 11. 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 Patient will be on treatment until July 21, which should be a total of 6 weeks from negative cultures. I would recommend increasing his dose of cefazolin to 2 grams IV every 12 hours, as his GFR is improving. The patient is clinically stable for transfer to [facility]. Please monitor complete blood count (CBC), basic, C-reactive protein (CRP), and erythrocyte sedimentation rate (ESR) weekly, and the patient could be seen in followup at my office in a couple weeks. End of therapy for aortic valve endocarditis will be July 21.
--- NOTE | 2019-06-25 20:11 | IPNPDOC ---
Date Seen The patient was seen on 06/25/19. Progress Note SUBJECTIVE: 84-year-old male with past medical history of atrial fibrillation on anticoagulation, congestive heart failure, chronic kidney disease and hypertension was initially admitted for pneumothorax after an outpatient thoracentesis. Patient underwent chest tube placement; patient's hospitalization was compensated by MSSA bacteremia/endocarditis along with acute kidney injury on chronic kidney disease. Patient is being treated with Ancef for the bacteremia, underwent DENISSE which was inconclusive, will be treated as if he has endocarditis. Renal function has since returned to baseline, tolerating diuretics, remains severely malnourished & fluid overloaded. 06/25/19 Seen in the morning, comfortable, without complaints, feels weak, working with PT, awaiting placement. 10 point review of system is negative except for above PHYSICAL EXAMINATION: VITAL SIGNS: Please see below. GENERAL: No distress HEENT: Normocephalic, atraumatic, moist mucous membranes NECK: Supple CARDIOVASCULAR EXAMINATION: Irregularly irregular RESPIRATORY EXAMINATION: Diminished on the R side ABDOMINAL EXAMINATION: Soft, nontender, nondistended, positive bowel sounds EXTREMITIES: Lower extremity edema improving SKIN: No rash NEUROLOGICAL EXAMINATION: Alert and oriented 3, no focal deficits PSYCHIATRIC EXAMINATION: Calm and cooperative LABORATORY DATA, IMAGING STUDIES, MICROBIOLOGY: Please see below. ASSESSMENT AND PLAN: 84-year-old male with multiple medical comorbidities who was initially admitted for pneumothorax with subsequent development of MSSA bacteremia and acute kidney injury. PROBLEMS: 1. Acute on chronic kidney disease: Resolved, now at baseline, tolerating diuretics, continue Lasix 40 mg BID, nephrology following. 2. Atrial fibrillation: Continue Eliquis for anticoagulation and atenolol for rate control. 3. MSSA bacteremia/endocarditis: DENISSE inconclusive, new PICC line placed today, continue Ancef until July 21, evaluated by ID. 4) congestive heart failure: Preserved ejection fraction, volume overloaded, likely worsened by severe protein malnutrition, continue Lasix, will monitor. DVT prophylaxis: on Eliquis GI prophylaxis: PPI VS, I&O, 24H, Fishbone Vital Signs/I&O Vital Signs Date Time Temp Pulse Resp B/P (MAP) Pulse Ox O2 Delivery O2 Flow Rate FiO2 06/25/19 14:00 98.7 83 16 118/74 (89) Room Air 06/25/19 11:45 96 I&O- Last 24 Hours up to 6 AM 06/25/19 05:59 Intake Total 798 ml Output Total 2025 ml Balance -1227 ml Laboratory Data 24H LABS Laboratory Tests 2 06/25/19 06:05: Anion Gap 5L, Glomerular Filtration Rate 35.4, Calcium Level 8.5L, Phosphorus Level 2.6, Albumin 1.5L CBC/BMP Laboratory Tests 06/25/19 06:05 MARIEL VEGAS MD Jun 25, 2019 20:11
[2019-06-25] MEDS: ceFAZolin SOD 2 GM in IV 1 EA IV SCH (21:20)
[2019-06-25 21:21] VITALS: BP 112/76
[2019-06-25] MEDS: traZODone 100 MG TAB PO SCH (21:21)
[2019-06-25] MEDS: atenoloL 50 MG TAB PO SCH (21:21)
[2019-06-25] MEDS: ACETAMINOPHEN 500 MG TAB PO SCH (21:22)
[2019-06-25] MEDS: SODIUM CHLORIDE 0.9% INJ 10 ML SYR IV PRN ×2 (21:22→22:40)
[2019-06-25 22:00] VITALS: BP 112/76
[2019-06-26 06:00] VITALS: BP 114/80
[2019-06-26 06:24] LABS: HEMATOCRIT 27.7 % (42.0-52.0); MEAN CORPUSCULAR HEMOGLOBIN 33.5 pg (27.0-33.0); MEAN CORPUSCULAR HGB CONC 32.5 g/dl (32.0-36.5); PLATELET COUNT, AUTOMATED 277 10^3/uL (150-450); RED BLOOD COUNT 2.69 10^6/uL (4.30-6.10); WHITE BLOOD COUNT 7.3 10^3/uL (4.0-10.0)
[2019-06-26] MEDS: ceFAZolin SOD 2 GM in IV 1 EA IV SCH (06:45)
[2019-06-26] MEDS: SODIUM CHLORIDE 0.9% INJ 10 ML SYR IV PRN (06:45)
[2019-06-26 06:46] LABS: CALCIUM LEVEL 8.2 MG/DL (8.8-10.2); CREATININE FOR GFR 1.83 MG/DL (0.70-1.30); GLOMERULAR FILTRATION RATE 37.6 (>35); POTASSIUM SERUM 4.2 MEQ/L (3.5-5.1)
[2019-06-26] MEDS: LEVALBUTEROL 1.25 MG/0.5 ML CONCENTRATE NEB INH SCH ×2 (07:19→11:18)
[2019-06-26] MEDS: SODIUM CHLORIDE 0.9% INJ 10 ML SYR IV SCH (07:55)
[2019-06-26] MEDS: APIXABAN 2.5 MG TAB (ELIQUIS) PO SCH (08:53)
[2019-06-26] MEDS: MULTIVITAMINS/MINERALS THERAP 1 TAB PO SCH (08:54)
[2019-06-26] MEDS: SIMETHICONE 80 MG CHEW TAB PO SCH (08:54)
[2019-06-26] MEDS: OMEPRAZOLE 20 MG CAP PO SCH (08:54)
[2019-06-26] MEDS: FUROSEMIDE 40 MG TAB PO SCH (08:54)
[2019-06-26] MEDS: FOLIC ACID 1 MG TAB PO SCH (08:54)
[2019-06-26] MEDS: THIAMINE 100 MG TAB PO SCH (08:55)
[2019-06-26] MEDS ORDERED: FURO40TA2 PO (10:51)
[2019-06-26] MEDS ORDERED: ELIQ2.5T PO (10:51)
[2019-06-26] MEDS ORDERED: ATEN50TA2 PO (10:51)
[2019-06-26] MEDS ORDERED: FLUBLOK(EGG FREE)(QUAD)INFLUENZA VACC 0.5ML SYRINGE (90682)18YRS&OLDER IM ONE (11:30)
--- NOTE | 2019-06-26 13:28 | DS.PDOC ---
Discharge Summary General Date of Admission May 20, 2019 at 12:26 Date of Discharge 06/25/19 Attending Physician: MARIEL VEGAS MD Discharge Summary PROCEDURES PERFORMED DURING STAY: None. ADMITTING DIAGNOSES: 1. Pneumothorax, right-sided pleural effusion, acute on chronic kidney disease, acute on chronic congestive heart failure, bacteremia, endocarditis. DISCHARGE DIAGNOSES: 1. Pneumothorax, right-sided pleural effusion, acute on chronic kidney disease, acute on chronic congestive heart failure, bacteremia, endocarditis. COMPLICATIONS/CHIEF COMPLAINT: Pleural Effusion Pneumothorax On Rt. HISTORY OF PRESENT ILLNESS: 84-year-old male with past medical history of atrial fibrillation on anticoagulation, congestive heart failure, chronic kidney disease and hypertension was initially admitted for pneumothorax after an outpatient thoracentesis. Patient underwent chest tube placement; patient's hospitalization was complicated by MSSA bacteremia, DENISSE was inconclusive for vegetation, evaluated by infectious disease, will be treated for endocarditis. Patient also developed acute kidney injury on chronic kidney disease, evaluated by nephrology, renal function is now at baseline, tolerating diuresis. Patient had a PICC line placed, will be discharged on Ancef, continue antibiotics until 07/22/2019. Patient is clinically close to his baseline, hemodynamically stable for discharge and outpatient follow-up. HOSPITAL COURSE: As above. DISCHARGE MEDICATIONS: Please see below. ALLERGIES: Please see below. PHYSICAL EXAMINATION: VITAL SIGNS: Please see below. GENERAL: Frail HEENT: Normocephalic, atraumatic, moist mucous membranes NECK: Supple CARDIOVASCULAR EXAMINATION: Irregularly irregular, systolic murmur appreciated RESPIRATORY EXAMINATION: Diminished on the right side, no wheezing ABDOMINAL EXAMINATION: Soft, nontender, nondistended, positive bowel sounds EXTREMITIES: Bilateral lower extremity pitting edema, improving SKIN: No rash NEUROLOGICAL EXAMINATION: Alert and oriented 3, no focal deficits PSYCHIATRIC EXAMINATION: Calm and cooperative LABORATORY DATA: Please see below. IMAGING: Chest x-ray showed persistent pleural effusions PROGNOSIS: Guarded ACTIVITY: As tolerated. DIET: Cardiac DISCHARGE PLAN: Follow-up with climatology professor, cage shift manager and PCP in 1-2 weeks DISPOSITION: [facility]. DISCHARGE INSTRUCTIONS: 1. As above. DISCHARGE CONDITION: Stable. TIME SPENT ON DISCHARGE: Greater than 34 minutes. Vital Signs/I&Os Vital Signs Date Time Temp Pulse Resp B/P (MAP) Pulse Ox O2 Delivery O2 Flow Rate FiO2 06/26/19 06:00 97.6 88 16 114/80 (91) 97 Room Air I&O- Last 24 Hours up to 6 AM 06/26/19 06:00 Intake Total 2580 ml Output Total 1750 ml Balance 830 ml Laboratory Data Labs 24H Laboratory Tests 2 06/26/19 05:34: Nucleated Red Blood Cells % (auto) 0.0, Anion Gap 6L, Glomerular Filtration Rate 37.6, Calcium Level 8.2L CBC/BMP Laboratory Tests 06/26/19 05:34 Discharge Medications Scheduled Acetaminophen (Acetaminophen) 500 Mg Tablet, 500 MG PO QHS, (Reported) Allopurinol (Zyloprim) 300 Mg Tablet, 300 MG PO QHS, (Reported) Apixaban (Eliquis) 2.5 Mg Tablet, 2.5 MG PO BID Atenolol (Atenolol) 50 Mg Tablet, 50 MG PO QHS Bisoprolol Fumarate (Bisoprolol Fumarate) 5 Mg Tab, 5 MG PO DAILY, (Reported) Diltiazem HCl (Cartia Xt) 240 Mg Cap, 240 MG PO BID, (Reported) Furosemide (Furosemide) 40 Mg Tablet, 40 MG PO BID@09,17 Hydralazine HCl (Hydralazine HCl) 25 Mg Tablet, 25 MG PO TID, (Reported) Hydrocortisone (Hydrocortisone) 28 Gm Cream..g., 1 APLCT TOP DAILY, (Reported) APPLY TO LEFT HAND Omeprazole (Omeprazole) 20 Mg Capsule.dr, 20 MG PO DAILY, (Reported) Potassium Chloride (Potassium Chloride) 10 Meq Tab.er.prt, 10 MEQ PO QHS, (Reported) Trazodone HCl (Trazodone HCl) 50 Mg Tab, 50 MG PO QHS, (Reported) Allergies Coded Allergies: No Known Allergies (Unverified , 09/04/18) MARIEL VEGAS MD Jun 26, 2019 13:28
[2019-06-26 14:00] VITALS: BP 119/75
--- NOTE | 2019-06-26 14:58 | IPN ---
DATE: 06/26/2019 Mr. Medrano is seen this morning on his bedside. He is feeling about the same and denies any new complaints. Nursing staff reports that he did get out of bed and sat in the chair this morning but currently he is back in the bed. He gets tired quickly and has not been ambulating. He is likely to go to rehab in [place] today. PHYSICAL EXAMINATION: Temperature 97.6 degrees Fahrenheit, heart rate 88 per minute and respiratory rate 16 per minute. Blood pressure 114/80 mmHg and oxygen saturation 97% on room air. Head is atraumatic. Neck is supple and jugular venous distention (JVD) about 8 cm above sternal angle. Heart sounds are regular and lungs with slightly diminished breath sounds at bases. Abdomen is soft and nontender and bowel sounds are normal. Extremities are without any cyanosis or clubbing. He does have edema on both upper and lower extremities. Neurologically, he is at his baseline mentation. Today's labs show WBC count 7.3, hemoglobin 9.0 and hematocrit 27.7. Platelets 277. Sodium 143, potassium 4.2, CO2 26, BUN 40 and creatinine 1.83. PROBLEMS: 1. Acute kidney injury superimposed on chronic kidney disease. Kidney function is slowly and gradually improving. The patient has no uremic symptoms and kidney function will need to be monitored closely. He is likely to go to rehab in [place] today and will be followed up as an outpatient in the office. 2. Congestive heart failure with generalized edema and hypervolemia. The patient has significant peripheral edema and has been on Lasix 40 mg twice a day, which should be continued and he should remain on fluid restriction of 1500 mL per day. I would like to see a negative fluid balance of at least 500-1000 mL per day. 3. Anemia. At present, his anemia is stable, and we will continue to monitor. He will receive Aranesp 100 mcg once a week, which will probably need to be addressed as an outpatient once he is in the rehab.
== END 2019-06-26 14:57 | DRG 199 ==
LOC: M ED 09:40 → M ED INP 12:26 → ENRESERVTM 13:30 → ENRESERVDT 13:30 → M ICU 13:52 → M PCU 05-23 20:24 → M MSPAV 06-05 14:35 → M PCU 06-07 17:12 → M ICU 06-08 03:29 → M PCU 06-08 12:04 → M MSPAV 06-21 15:18
PROVIDERS: ADMIT Internal Medicine Nephrology; ATTEND Internal Medicine
PROC: 0W9930Z Drainage of Right Pleural Cavity with Drainage Device, Percutaneous Approach (ICD-10-PCS; principal; 2019-05-20)
PROC: 0W9900Z Drainage of Right Pleural Cavity with Drainage Device, Open Approach (ICD-10-PCS; 2019-05-27)
PROC: B246ZZ4 Ultrasonography of Right and Left Heart, Transesophageal (ICD-10-PCS; 2019-06-12)
PROC: 02HV33Z Insertion of Infusion Device into Superior Vena Cava, Percutaneous Approach (ICD-10-PCS; 2019-06-14)
PROC: 02HV33Z Insertion of Infusion Device into Superior Vena Cava, Percutaneous Approach (ICD-10-PCS; 2019-06-25)
DX: J95.811 Postprocedural pneumothorax (principal); G93.41 Metabolic encephalopathy; I33.0 Acute and subacute infective endocarditis; N17.0 Acute kidney failure with tubular necrosis; E43 Unspecified severe protein-calorie malnutrition; I50.32 Chronic diastolic (congestive) heart failure; I13.0 Hypertensive heart and chronic kidney disease with heart failure and stage 1 through stage 4 chronic kidney disease, or unspecified chronic kidney disease; I48.19 Other persistent atrial fibrillation; J90 Pleural effusion, not elsewhere classified; F10.232 Alcohol dependence with withdrawal with perceptual disturbance; E87.0 Hyperosmolality and hypernatremia; E87.1 Hypo-osmolality and hyponatremia; K52.1 Toxic gastroenteritis and colitis; R78.81 Bacteremia; N12 Tubulo-interstitial nephritis, not specified as acute or chronic; Z66 Do not resuscitate; N18.3 Chronic kidney disease, stage 3 (moderate); I48.91 Unspecified atrial fibrillation; R63.4 Abnormal weight loss; E86.0 Dehydration; I49.5 Sick sinus syndrome; I73.9 Peripheral vascular disease, unspecified; E78.5 Hyperlipidemia, unspecified; M54.9 Dorsalgia, unspecified; E79.0 Hyperuricemia without signs of inflammatory arthritis and tophaceous disease; R32 Unspecified urinary incontinence; D63.1 Anemia in chronic kidney disease; D75.89 Other specified diseases of blood and blood-forming organs; I27.20 Pulmonary hypertension, unspecified; Z96.651 Presence of right artificial knee joint; Z85.46 Personal history of malignant neoplasm of prostate; Z87.891 Personal history of nicotine dependence; Z79.01 Long term (current) use of anticoagulants; Z95.0 Presence of cardiac pacemaker; Z79.899 Other long term (current) drug therapy; Z87.442 Personal history of urinary calculi; Z92.3 Personal history of irradiation; K74.60 Unspecified cirrhosis of liver; F02.80 Dementia in other diseases classified elsewhere, unspecified severity, without behavioral disturbance, psychotic disturbance, mood disturbance, and anxiety; R41.0 Disorientation, unspecified; G30.9 Alzheimer's disease, unspecified; N28.1 Cyst of kidney, acquired; E87.6 Hypokalemia; T36.95XA Adverse effect of unspecified systemic antibiotic, initial encounter; B95.61 Methicillin susceptible Staphylococcus aureus infection as the cause of diseases classified elsewhere; T36.0X5A Adverse effect of penicillins, initial encounter

== ENCOUNTER → 2019-05-20 | Outpatient (CLI) | payer MEDICARE ==
--- NOTE | 2019-05-20 09:31 | REP ---
Chest x-ray: Two views. History: Followup post thoracentesis on May,. Post thoracentesis small right-sided pneumothorax. Comparison film is from May 17, 2019. Findings: The patient's right-sided pneumothorax has increased in the interval since the May 17, 2019 prior radiograph, and is now moderate, 25-30%. There is also a small to moderate right pleural effusion layering in the pleural space inferiorly. The left lung remains clear. There is no discernible mediastinal shift. Impression: Increased right-sided pneumothorax, now moderate. Small to moderate pleural effusion persists on the right as well essentially unchanged. I discussed these results by telephone with the patient's daughter with the recommendation that he report to the emergency room at [facility] for evaluation and consideration of chest tube placement. Also, I have relayed these results to the patient's referring clinician and to to the ED provider on duty. Electronically Signed by Hollis Weems MD 05/20/2019 09:22 A
== END ==
LOC: M WUC 08:37
PROVIDERS: ATTEND Radiology Diagnostic Radiology
DX: J93.9 Pneumothorax, unspecified (principal); J90 Pleural effusion, not elsewhere classified

== ENCOUNTER 2019-07-10 20:28 | Inpatient (IN) | payer MEDICARE ==
[~2019-07-10] VITALS: Ht 177.8 cm; Wt 69.4 kg
[~2019-07-10 20:28] MED LIST changes: +ACET-683 PO; +ATEN50TA2 PO; +ELIQ2.5T PO; +HYDR1CRE9 TOP; +OMEP1CAP73 PO; +POTA10TA16 PO; +ZYLO300T6 PO
[2019-07-10 21:45] LABS: BASO # 0.1 10^3/uL (0.0-0.2); BASO % 0.5 % (0.0-1.0); EOS # 0.1 10^3/uL (0.0-0.5); EOS % 0.6 % (0.0-3.0); HEMATOCRIT 29.2 % (42.0-52.0); HEMOGLOBIN 9.2 g/dl (13.5-17.5); LYMPH # 0.7 10^3/uL (1.5-5.0); LYMPH % 5.4 % (24.0-44.0); MEAN CORPUSCULAR HEMOGLOBIN 34.2 pg (27.0-33.0); MEAN CORPUSCULAR HGB CONC 31.5 g/dl (32.0-36.5); MEAN CORPUSCULAR VOLUME 108.6 fl (80.0-96.0); MONO % 7.6 % (0.0-5.0); NEUTROPHILS # 10.7 10^3/uL (1.5-8.5); NEUTROPHILS % 83.5 % (36.0-66.0); PLATELET COUNT, AUTOMATED 362 10^3/uL (150-450); RED BLOOD COUNT 2.69 10^6/uL (4.30-6.10); WHITE BLOOD COUNT 12.9 10^3/uL (4.0-10.0)
[2019-07-10 22:10] LABS: ALBUMIN 1.4 GM/DL (3.2-5.2); ALT/SGPT < 6 U/L (12-78); BILIRUBIN,DIRECT 0.2 MG/DL (0.0-0.2); BILIRUBIN,TOTAL 0.5 MG/DL (0.2-1.0); BLOOD UREA NITROGEN 90 MG/DL (7-18); CALCIUM LEVEL 7.4 MG/DL (8.8-10.2); CARBON DIOXIDE LEVEL 26 MEQ/L (21-32); CHLORIDE LEVEL 109 MEQ/L (98-107); CREATININE FOR GFR 4.36 MG/DL (0.70-1.30); GLOMERULAR FILTRATION RATE 13.8 (>35); GLUCOSE, FASTING 155 MG/DL (70-100); LIPASE 2803 U/L (73-393); POTASSIUM SERUM 4.4 MEQ/L (3.5-5.1); SODIUM LEVEL 143 MEQ/L (136-145); TOTAL PROTEIN 5.1 GM/DL (6.4-8.2)
[2019-07-10] MEDS ORDERED: NS 500 ML IV ONE (22:30)
--- NOTE | 2019-07-10 22:59 | REPVR ---
PROCEDURE INFORMATION: Exam: CT Abdomen And Pelvis Without Contrast Exam date and time: 07/10/2019 10:42 PM Age: 84 years old Clinical indication: Abdominal pain; Generalized TECHNIQUE: Imaging protocol: Computed tomography of the abdomen and pelvis without contrast. Radiation optimization: All CT scans at this facility use at least one of these dose optimization techniques: automated exposure control; mA and/or kV adjustment per patient size (includes targeted exams where dose is matched to clinical indication); or iterative reconstruction. COMPARISON: CT ABD PELVIS W/O CONTRAST 06/07/2019 8:18 AM FINDINGS: Lungs: Bibasilar atelectasis. Moderate bilateral pleural effusions. Liver: Normal. No mass. Gallbladder and bile ducts: Normal. No calcified stones. No ductal dilation. Pancreas: There is diffuse pancreatic atrophy. Spleen: The spleen demonstrates punctate calcifications, consistent with remote granulomatous organism exposure. Adrenals: There is bilateral adrenal hyperplasia. Kidneys and ureters: Right renal atrophy. Bilateral renal cysts measure up to 2.6 cm in the right kidney and 2.8 cm in the left kidney. No follow-up necessary. Stomach and bowel: Moderate diverticulosis is present in the distal colon. No diverticulitis. Appendix: No evidence of appendicitis. Intraperitoneal space: There is a small amount of free intraperitoneal fluid present collecting in the dependent pelvis. Vasculature: The aorta demonstrates moderate atherosclerotic calcification. Lymph nodes: Unremarkable. No enlarged lymph nodes. Bladder: Unremarkable as visualized. Reproductive: Numerous brachytherapy seeds in the prostate gland. Bones/joints: Moderate central spinal stenosis L2-L3, moderate to severe central spinal stenosis L3-L4, [id number] central spinal stenosis L4-L5. Mild retrolisthesis of L5 on S1. Shallow levoscoliosis. Soft tissues: There is soft tissue edema demonstrated in the abdominal wall, flanks and buttock regions consistent with anasarca. There is a small umbilical hernia. There is no evidence of incarceration. Other findings: Osteoporosis. IMPRESSION: 1. Anasarca. 2. There is diffuse pancreatic atrophy. 3. There is bilateral adrenal hyperplasia. 4. Right renal atrophy. Bilateral renal cysts measure up to 2.6 cm in the right kidney and 2.8 cm in the left kidney. No follow-up necessary. 5. There is a small amount of free intraperitoneal fluid present collecting in the dependent pelvis. 6. Moderate diverticulosis is present in the distal colon. No diverticulitis. Electronically signed by: Fitz Paniagua On 07/10/2019 22:59:00 PM
[2019-07-11] MEDS ORDERED: MAALOX 30 ML SUSP *UDC PO PRN
[2019-07-11] MEDS ORDERED: ACETAMINOPHEN TAB 650MG DOSE (2X325MG) PO PRN
--- NOTE | 2019-07-11 00:08 | HPEPDOC ---
[facility] Medical History & Physical Date of Admission Jul 11, 2019 Date of Service: Jul 11, 2019 Primary Care Physician: Jr Good Collins Attending Physician: AMANDA CINTRON MD History and Physical TIME OF SERVICE: 1245 AM CHIEF COMPLAINT: Sent from senior living because of abnormal labs HISTORY OF PRESENT ILLNESS: This is an 84-year-old male who was sent from his senior living in [place] because his creatinine had increased to 4.9. He was last admitted on May 20 for management of right hydropneumothorax with persistent pleural effusion; on the day of discharge which was June 26 his creatinine was 1.83. Currently the patient reports feeling well, he denies having any pain, nausea, vomiting, or feeling tired. He reports feeling chronically dizzy, but this has not changed in character recently. REVIEW OF SYSTEMS: 12 point review of systems negative except as listed in HPI PAST MEDICAL/ SURGICAL HISTORY: Chronic diastolic CHF Atrial fibrillation Sinus syndrome with pacemaker placement. PAD /carotid artery disease Chronic HTN History of right pleural effusion. Right knee replacement Right Carotid endarterectomy SOCIAL HISTORY: Former smoker FAMILY HISTORY: Colon cancer ALLERGIES: Please see below. HOME MEDICATIONS: Please see below. Vital Signs Date Time Temp Pulse Resp B/P (MAP) Pulse Ox O2 Delivery O2 Flow Rate FiO2 07/10/19 20:32 97.2 74 18 93/55 91 Room Air PHYSICAL EXAMINATION: GEN: well-nourished / well developed/ NAD INTEGUMENT: not flushed HEENT: NCAT /mucus membranes moist and pink CVS: RRR/NMRG/ / radial pulses intact / no lower extremity edema LUNGS: lungs are clear to auscultation bilaterally on room air ABDOMEN: Contour (flat) / soft & not tender with palpation MSK/EXTREMITIES: range of motion intact in all 4 extremities NEURO: CN 2-12 are grossly intact / speech is not dysarthric PSYCH: alert and oriented to person place and time/ able to understand and follow all commands LABORATORY DATA: Anion Gap 8, Glomerular Filtration Rate 13.8L, Calcium Level 7.4L, Total Bilirubin 0.5, Direct Bilirubin 0.2, Aspartate Amino Transf (AST/SGOT) 16, Alanine Aminotransferase (ALT/SGPT) < 6L, Alkaline Phosphatase 150H, Total Protein 5.1L, Albumin 1.4L, Albumin/Globulin Ratio 0.38L, Lipase 2803H IMAGING: Chest x-ray " Impression: Bilateral pleural effusions (right greater than left) and bibasilar atelectasis/consolidations along with 1.9 cm rounded density in the right mid lung zone again noted." CT abdomen and pelvis "IMPRESSION: 1. Anasarca. 2. There is diffuse pancreatic atrophy. 3. There is bilateral adrenal hyperplasia. 4. Right renal atrophy. Bilateral renal cysts measure up to 2.6 cm in the right kidney and 2.8 cm in the left kidney. No follow-up necessary. 5. There is a small amount of free intraperitoneal fluid present collecting in the dependent pelvis. 6. Moderate diverticulosis is present in the distal colon. No diverticulitis MICROBIOLOGY: Please see below. ASSESSMENT: Mr. Bernabe is an 84-year-old man with a history of diastolic CHF, atrial fibrillation, pacemaker placement, PUD, HTN, and carotid endarterectomy who is admitted for evaluation of YUVAL on CKD. PLAN: 1. YUVAL on CKD Cause to be determined Plan: admit to medical floor / f/u Is/Os, daily weights / IVF / f/u UA, ulytes for FENa or FEUrea, U protein, U Cr, Phosph, hepatitis panel, vitamin D, PTH, uric acid, serum protein electrophoresis, uric acid C3 and C4 / renal US / hold Lasix and potassium supplement 2. Bilateral adrenal hyperplasia. His blood pressures also fairly low , despite his history of hypertension Plan: f/u AM cortisol to screen for adrenal insufficiency 3. SIRS Leukocytosis and tachypnea of unclear cause. He denies having any symptoms or acute complaints Plan: follow-up UA and monitor vitals 4. Multifactorial anemia - Follow-up reticulocyte to count, B12, folate, and iron studies 5. Chronic diastolic CHF - hold lasix 6. Atrial fibrillation - apixaban & diltiazem DVT PROPHYLAXIS: n/a bc he is on apixaban DISPOSITION: Back to [place] to senior living after more than 2 midnight's stay PFS consult has been placed Laboratory Data CBC/BMP Laboratory Tests 07/10/19 21:37 Home Medications Scheduled Acetaminophen (Acetaminophen) 500 Mg Tablet, 500 MG PO QHS Allopurinol (Zyloprim) 300 Mg Tablet, 300 MG PO QHS Apixaban (Eliquis) 2.5 Mg Tablet, 2.5 MG PO BID Atenolol (Atenolol) 50 Mg Tablet, 50 MG PO QHS Cefazolin Sodium (Cefazolin Sodium) 1 Gm Vial.port, 2 GM IV BID MIXED IN 100ML OF DILUENT TOTAL; GIVEN IN PICC LINE Diltiazem HCl (Cartia Xt) 240 Mg Cap, 240 MG PO DAILY Furosemide (Furosemide) 40 Mg Tablet, 40 MG PO BID 0900, 1700 Hydrocortisone (Hydrocortisone) 28 Gm Cream..g., 1 DOSE TOP DAILY APPLY TO LEFT HAND Omeprazole (Omeprazole) 20 Mg Capsule.dr, 20 MG PO DAILY Potassium Chloride (Potassium Chloride) 10 Meq Tab.er.prt, 10 MEQ PO Q12H Trazodone HCl (Trazodone HCl) 50 Mg Tab, 50 MG PO QHS Tuberculin,Purif.prot.deriv. (Tubersol) 5 Tub Unit/0.1 Ml Vial, 5 UNIT ID ASDIRECTED ONE TIME DOSE AT 07/11/19 FROM 0700 TO 1500 Scheduled PRN Bisacodyl (Dulcolax) 10 Mg Supp.rect, 10 MG IA DAILY PRN for CONSTIPATION EVERY DAY NEEDED AT 0600 IF NO RESULTS FROM MILK OF MAGNESIA Magnesium Hydroxide (Milk of Magnesia) 400 Mg/5 Ml Oral.susp, 30 ML PO Q2D PRN for CONSTIPATION GIVE AT 1800 IF NO BM IN 48 HOURS Sodium Phosphate,[place]-Dibasic (Fleet Enema) 133 Ml Enema, 1 OMKAR IA DAILY PRN for CONSTIPATION GIVE IF NO RESULTS FROM DULCOLAX SUPPOSITORY Allergies Coded Allergies: No Known Allergies (Unverified , 09/04/18) A-FIB/CHADSVASC A-FIB History Current/History of A-Fib/PAF?: Yes Current PO Anticoag Therapy: Yes AMANDA CINTRON MD Jul 11, 2019 00:08
[2019-07-11] MEDS ORDERED: TUBE5INJ ID (00:42)
[2019-07-11] MEDS ORDERED: DULC10SU2 PR (00:42)
[2019-07-11] MEDS ORDERED: ELIQ2.5T PO (00:42)
[2019-07-11] MEDS ORDERED: MILKSUS3 PO (00:42)
[2019-07-11] MEDS ORDERED: FURO40TA2 PO (00:42)
[2019-07-11] MEDS ORDERED: ATEN50TA2 PO (00:42)
[2019-07-11] MEDS ORDERED: FLEEENE12 PR (00:42)
[2019-07-11] MEDS ORDERED: CEFA1INJ5 IV (00:48)
[2019-07-11] MEDS ORDERED: traZODone 50 MG TAB PO SCH (01:00)
[2019-07-11 01:02] LABS: MAGNESIUM LEVEL 2.2 MG/DL (1.8-2.4); PERCENT SATURATION 42.4 % (19.7-50.0); URIC ACID 6.7 MG/DL (3.5-7.2)
[2019-07-11] MEDS ORDERED: BISACODYL 10 MG SUPP PR PRN (02:00)
[2019-07-11] MEDS: atenoloL 50 MG TAB PO SCH ×2 (02:00→20:15)
[2019-07-11] MEDS ORDERED: MOM 30ML SUSPENSION UDC PO PRN ×2 (02:00)
[2019-07-11] MEDS ORDERED: TUBERCULIN PPD 5 UNITS/0.1 ML ID SCH (02:00)
--- NOTE | 2019-07-11 02:25 | REP ---
Clinical: Chest pain. Technique: Portable upright AP view of the chest. Comparison: 06/23/2019. Findings: Small/moderate right pleural effusion, small left pleural effusion, and lower lobe consolidations/atelectasis are suggested and appear relatively similar to prior examination. No obvious pneumothorax. A 1.9 cm rounded density in the right mid lung zone is again identified. Cardiac silhouette is within normal limits. Dual lead pacemaker in stable position. Atherosclerotic changes to the aorta noted. Skeletal structures demonstrate age-related changes. Impression: Bilateral pleural effusions (right greater than left) and bibasilar atelectasis/consolidations along with 1.9 cm rounded density in the right mid lung zone again noted. Electronically Signed by Mariusz Mackenzie MD 07/11/2019 02:15 A
[2019-07-11] MEDS: traZODone 50 MG TAB PO SCH ×2 (02:28→20:21)
[2019-07-11 06:00] VITALS: BP 95/52
[2019-07-11] MEDS: DOCUSATE SODIUM 100 MG CAP PO SCH ×3 (06:31→20:21)
[2019-07-11] MEDS: APIXABAN 2.5 MG TAB (ELIQUIS) PO SCH ×3 (06:31→20:21)
[2019-07-11] MEDS: allopurinoL 300 MG TAB PO SCH ×2 (06:37→20:21)
[2019-07-11 08:00] VITALS: BP 90/51
[2019-07-11 08:19] LABS: HEMATOCRIT 27.1 % (42.0-52.0); HEMOGLOBIN 8.5 g/dl (13.5-17.5); MEAN CORPUSCULAR HEMOGLOBIN 34.3 pg (27.0-33.0); MEAN CORPUSCULAR HGB CONC 31.4 g/dl (32.0-36.5); MEAN CORPUSCULAR VOLUME 109.3 fl (80.0-96.0); PLATELET COUNT, AUTOMATED 298 10^3/uL (150-450); RED BLOOD COUNT 2.48 10^6/uL (4.30-6.10); WHITE BLOOD COUNT 10.6 10^3/uL (4.0-10.0)
[2019-07-11] MEDS: OMEPRAZOLE 20 MG CAP PO SCH (08:51)
[2019-07-11] MEDS: HYDROCORTISONE 1% CREAM 30 GM TOP SCH (08:52)
[2019-07-11 08:56] LABS: BLOOD UREA NITROGEN 91 MG/DL (7-18); CALCIUM LEVEL 7.6 MG/DL (8.8-10.2); CARBON DIOXIDE LEVEL 25 MEQ/L (21-32); CHLORIDE LEVEL 110 MEQ/L (98-107); GLOMERULAR FILTRATION RATE 14.8 (>35); GLUCOSE, FASTING 83 MG/DL (70-100); POTASSIUM SERUM 3.7 MEQ/L (3.5-5.1); SODIUM LEVEL 144 MEQ/L (136-145)
[2019-07-11 08:57] LABS: ALBUMIN 1.3 GM/DL (3.2-5.2); ALT/SGPT < 6 U/L (12-78); BILIRUBIN,TOTAL 0.6 MG/DL (0.2-1.0); COMPLEMENT C3 75 MG/DL (90-180); COMPLEMENT C4 39 MG/DL (10-40); TOTAL PROTEIN 4.7 GM/DL (6.4-8.2)
[2019-07-11 10:59] LABS: FOLATE 8.8 NG/ML (>5.4)
[2019-07-11 12:00] VITALS: BP 87/50
[2019-07-11 12:06] LABS: CORTISOL AM 27.8 UG/DL (4.3-22.4); PTH INTACT 204.3 PG/ML (18.5-88.0)
--- NOTE | 2019-07-11 12:27 | IPNPDOC ---
Text Note Date of Service The patient was seen on 07/11/19. NOTE Subjective: Patient is an 84-year-old male with a PMHx of Chronic Diastolic CHF, Atrial fibrillation, SSS s/p PM, PAD/CAD, HTN, Hx of R pleural effusion, who sent to emergency room as of abnormal lab work. Patient was imaging the hospice service for further evaluation and treatment. Patient was seen and examined at the bedside. . Currently, patient reports that he is not experiencing any lightheadedness, dizziness, chest pain, shortness of breath or palpitations. Denies any nausea, vomiting, abdominal pain, diarrhea, has been urinating without any difficulty. Objective: Vitals (See below) General: Lying in bed, no acute distress, comfortable, AAOx3 HEENT: NC, AT CVS: RRR, +S1S2 Lungs: Fair air entry b/l, -w/r/r Abdomen: Soft, ND, NT Extremities: - Edema, - Calf tenderness Assessment and plan: Acute kidney injury on CKD3 - Cr baseline of 2-3; currently at 4.10; improved since admission - c/w aggressive IV fluid hydration - Renal US 07/10: unofficial report without evidence of hydroureter / hydronephrosis - Will hold nephrotoxic medications - Nephrology on consultation; appreciate their input Leukocytosis - Remains afebrile / hemodynamically stable - 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 Garcia - Leukocytosis with mild improvement currently - CT abdomen / pelvis 07/09: 1. Anasarca. 2. There is diffuse pancreatic atrophy. 3. There is bilateral adrenal hyperplasia. 4. Right renal atrophy. Bilateral renal cysts measure up to 2.6 cm in the right kidney and 2.8 cm in the left kidney. No follow-up necessary. 5. There is a small amount of free intraperitoneal fluid present collecting in the dependent pelvis. 6. Moderate diverticulosis is present in the distal colon. No diverticulitis. - CXR 07/10: Bilateral pleural effusions (right greater than left) and bibasilar atelectasis/consolidations along with 1.9 cm rounded density in the right mid lung zone again noted. - Repeat blood cultures pending now / Lactic acid now - Will check / trend ESR / CRP - Repeat ECHO - Will resume Cefazolin (based on prior ID recommendations) Bilateral adrenal hyperplasia - Remains asymptomatic - BP on lower limits of normal - Lactic acid pending - Cortisol levels pending - Will consider starting hydrocortisone if cortisol levels are low Multifactorial anemia - Hg trending down - likely 2/2 dilutional etiology - Folate / B12 normal - Iron panel consistent with deficiency - Will likely require transfusion - Will follow H&H; repeat this afternoon Chronic diastolic CHF - Currently she does not appear to have any signs of exacerbation - ECHO 06/13: Preserved EF, No evidence of vegetations, Prominent Aortic sclerosis, small echodensity is of the cusp of aortic valve that could represente vegetations even though the appearance is more consistent with thrombotic vegetations - Will repeat echocardiogram - Blood cultures pending - Hold diuretics at this time Chronic Atrial fibrillation - c/w rate control with Atenolol / Diltiazem - c/w full anticoagulation with Eliquis Gout - c/w Allopurinol GERD - c/w Omeprazole DVT prophylaxis - c/w full anticoagulation with Eliquis Disposition: - Anticipate return back to [facility] once clinically stable VS,Amy, I+O VS, Amy, I+O Laboratory Tests 07/10/19 21:37 07/11/19 07:50 07/11/19 07:52 Vital Signs Date Time Temp Pulse Resp B/P (MAP) Pulse Ox O2 Delivery O2 Flow Rate FiO2 07/11/19 08:00 97.0 75 16 90/51 (64) 96 Room Air I&O- Last 24 Hours up to 6 AM 07/11/19 05:59 Intake Total 500 ml Balance 500 ml TRISTAN MEEHAN MD Jul 11, 2019 12:26
[2019-07-11 12:41] LABS: ALBUMIN 2.05 GM/DL (3.29-5.55); ALBUMIN % 43.6 % (55.8-66.1); ALPHA-1-GLOBULIN % 10.1 % (2.9-4.9); ALPHA-1-GLOBULINS 0.47 GM/DL (0.17-0.41); ALPHA-2-GLOBULINS 0.82 GM/DL (0.42-0.99); ALPHA-2-GLOBULINS % 17.5 % (7.1-11.8); BETA-1-GLOBULINS 0.26 GM/DL (0.28-0.60); BETA-1-GLOBULINS % 5.6 % (4.7-7.2); BETA-2-GLOBULINS 0.32 GM/DL (0.19-0.55); BETA-2-GLOBULINS % 6.9 % (3.2-6.5); GAMMA GLOBULIN % 16.3 % (11.1-18.8); GAMMA GLOBULINS 0.77 GM/DL (0.65-1.58)
[2019-07-11] MEDS ORDERED: ceFAZolin SOD 1 GM in D5W MINI-BAG PLUS 50 ML IV SCH (12:45)
[2019-07-11] MEDS ORDERED: ceFAZolin SOD 2 GM in IV 1 EA IV SCH ×2 (12:45→13:00)
[2019-07-11] MEDS: ceFAZolin SOD 1 GM in D5W MINI-BAG PLUS 50 ML IV SCH (13:00)
--- NOTE | 2019-07-11 13:33 | REP ---
URINARY TRACT SONOGRAPHY: HISTORY: Acute kidney insufficiency. Comparison is made with recent sonography June 17, 2019. FINDINGS: Renal cortical echogenicity pattern is increased consistent with chronic medical renal disease. Right kidney is quite atrophic with dimensions of 6.1 x 3.4 x 3.5 cm. Left renal dimensions are 10.0 x 5.3 x 5.1 cm. No hydronephrosis is seen on either side. There is a 2.9 cm cyst in the upper pole right kidney and two cysts are seen in the lower pole on the right measuring 0.8 and 1.3 cm in greatest diameter respectively. There are three cysts in the left kidney including upper pole cyst measuring 3.0 cm in greatest diameter and two lower pole cysts measuring 1.3 cm each. Incidental note is made of right pleural effusion. Also noted is some hypoechoic layering material in the dependent portion of the urinary bladder. IMPRESSION: Bilateral renal cysts. Right renal atrophy. Increased renal cortical echogenicity pattern consistent with chronic medical renal disease. Mucoid material in the lumen of the urinary bladder. Right pleural effusion. Electronically Signed by Hollis Weems MD 07/11/2019 01:36 P
[2019-07-11] MEDS: NS 0.45% 1,000 ML IV SCH (13:45)
[2019-07-11 14:20] LABS: BASO # 0.1 10^3/uL (0.0-0.2); BASO % 0.4 % (0.0-1.0); EOS # 0.1 10^3/uL (0.0-0.5); EOS % 0.7 % (0.0-3.0); HEMATOCRIT 27.7 % (42.0-52.0); HEMOGLOBIN 8.8 g/dl (13.5-17.5); LYMPH # 0.5 10^3/uL (1.5-5.0); LYMPH % 4.1 % (24.0-44.0); MEAN CORPUSCULAR HEMOGLOBIN 34.8 pg (27.0-33.0); MEAN CORPUSCULAR HGB CONC 31.8 g/dl (32.0-36.5); MEAN CORPUSCULAR VOLUME 109.5 fl (80.0-96.0); MONO % 7.8 % (0.0-5.0); NEUTROPHILS # 10.4 10^3/uL (1.5-8.5); PLATELET COUNT, AUTOMATED 311 10^3/uL (150-450); RED BLOOD COUNT 2.53 10^6/uL (4.30-6.10); WHITE BLOOD COUNT 12.3 10^3/uL (4.0-10.0)
[2019-07-11 15:43] LABS: ERYTHROCYTE SEDIMENTATION RATE 72 mm/hr (0-20)
[2019-07-11 16:00] VITALS: BP 87/54
[2019-07-11 20:00] VITALS: BP 90/56
--- NOTE | 2019-07-11 21:39 | CR ---
DATE OF CONSULTATION: 07/11/2019 REQUESTING PHYSICIAN: Michelle Rowe MD CONSULTING PHYSICIAN: Maya Gambino MD REASON FOR CONSULTATION: Acute kidney injury superimposed on chronic kidney disease (CKD), stage III B. HISTORY OF PRESENT ILLNESS: Jason Medrano is known to me from previous hospitalization. He is an 84-year-old male with a past medical history of chronic diastolic congestive heart failure, CKD stage III B with baseline creatinine of around 1.8 to 2.0, atrial fibrillation, status post pacemaker. peripheral arterial disease, coronary artery disease, hypertension, history of right pleural effusion and recent hospitalization and treatment for MSSA endocarditis with discharge on June 26 with a creatinine of 1.8 to [facility] rehabilitation unit after a one-month stay at [facility] for endocarditis associated with recurrent acute kidney injury, congestive heart failure and atrial fibrillation. The patient was sent to the emergency room because of abnormal blood work at [facility]. His outpatient blood work had shown a creatinine that had increased to 4.9. The patient was seen and examined today at the bedside and he tells me that he has been rather dizzy and weak and has had trouble with rehab and has not been walking much. He denied any shortness of breath and is uncertain if he has had any change in urination. The patient is a somewhat poor historian and can also not tell me regarding his antibiotic use. Review of records shows that he is to continue IV cephazolin until July 21. PAST MEDICAL AND SURGICAL HISTORY: Chronic diastolic congestive heart failure. CKD stage III B, baseline creatinine 1.8 to 2.0. History of recurrent acute kidney injury. Atrial fibrillation, status post pacemaker placement. Peripheral arterial disease. Carotid artery disease. Hypertension. History of right pleural effusion. Right knee replacement. Right carotid endarterectomy. Recent history of MSSA endocarditis. SOCIAL HISTORY He is a ex-smoker. He is presently residing at [facility]. 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 FAMILY HISTORY: Colon cancer. ALLERGIES: NO KNOWN DRUG ALLERGIES. HOME MEDICATIONS: Are reviewed and include: - Tylenol at bedtime - allopurinol 300 mg by mouth at bedtime - Eliquis 2.5 mg by mouth twice a day - atenolol 50 mg by mouth at bedtime - cephazolin 1 gram IV twice a day - diltiazem 240 mg by mouth daily - Lasix 40 mg by mouth twice a day - topical hydrocortisone cream - omeprazole 20 mg by mouth daily - potassium chloride 10 mEq by mouth twice a day - trazodone 50 mg by mouth at bedtime - bisacodyl as needed - milk of magnesia as needed REVIEW OF SYSTEMS: Constitutional: The patient denies any recent fevers or chills but does report generalized fatigue and minimal ambulation. Eyes: He denies visual changes or tearing. ENT: He denies rhinorrhea or dysphasia. Cardiac: He has a history of congestive heart failure and also recent history of endocarditis and is still receiving IV antibiotics. Respiratory: He denies shortness of breath or cough. He has a history of pleural effusion. Gastrointestinal: He denies nausea, vomiting, diarrhea. Genitourinary: He denies dysuria or hematuria. He is unsure of quantification of urine. Musculoskeletal: He reports minimal ambulation and denies falls, denies any acute myalgias or arthralgias. Skin: Denies any new rashes or ulcers. Neurologic: Denies seizure or syncope. Endocrine: He reports no known diabetes or thyroid issues. Hematologic: He reports chronic anticoagulant use and anemia. Remainder review of systems are negative or as per HPI. PHYSICAL EXAMINATION: Vital signs: Temperature 96.5, pulse 74, respiratory rate 20, blood pressure 87/50, saturating 98% on room air. General: The patient is seen lying flat in bed. Head of the bed minimum minimally elevated. Awake, alert, oriented times three. At baseline mentation, in no apparent distress. Extraocular muscles are intact. The tongue is moist. Neck is supple. Jugular veins are not elevated. Heart sounds are regular at this time, S1, S2. There is absolutely no edema in the peripheries nor in the dependent area. Lungs show symmetric air entry bilaterally. No crackle or rales. No accessory muscle use. He is comfortable on room air. Abdomen: Soft, nontender and nondistended. Skin: Normal temperature and turgor. Extremities: Are negative for edema or clubbing. Neurologic: He is oriented times three, interactive and at baseline mentation. LABS: White count 12.3, hemoglobin 8.8, platelet 311, sodium 144, potassium 3.7, bicarbonate 25, BUN 91, creatinine 4.1. Lactic acid 1.4, T-sat 42%. Ferritin 210, lipase 2800, CRP 6.6, vitamin D 29, PTH 204. Blood culture and urine cultures pending. CT abdomen and pelvis: Moderate bilateral pleural effusions. Anasarca. Renal cyst. Moderate diverticulosis without diverticulitis. Renal ultrasound: Right kidney is only 6.1 cm and is significantly atrophic. Left kidney is 10 cm. INPATIENT MEDICATIONS: - cephazolin 1 gram IV every 12 hours - half normal saline at 80 mL an hour - allopurinol 300 mg by mouth at bedtime - Eliquis 2.5 mg by mouth twice a day - He received 500 mL normal saline bolus - atenolol 50 mg by mouth at bedtime - Dulcolax as needed - docusate 100 mg by mouth twice a day - milk of magnesium as needed - omeprazole 20 mg by mouth daily - trazodone 50 mg by mouth at bedtime PROBLEMS: 1. Recurrent acute kidney injury superimposed on CKD stage III B. Baseline creatinine is around 1.8 to 2.2. The patient has had recent recurrent acute kidney injuries. He was last hospitalized for about a month with MSSA endocarditis and he had two episodes of acute kidney injury on that admission. He has known atrophic right kidney and likely most of his GFR is coming from the left kidney. There is no evidence of obstruction. I feel the current acute kidney injury is likely due to borderline blood pressure. Systolic has been in the 80s to 90s and the patient feels lightheaded and dizzy every time he gets up. Diuretics are on hold. Antihypertensives have holding parameters additionally. I feel there is some intravascular volume depletion and I have started him on half normal saline. 2. Hypotension. Systolic has been 80s to 90s and the patient is in recurrent renal failure and likely has renal hypoperfusion. Diuretic is discontinued (Lasix). He continues on atenolol with hold parameters. I have stopped the calcium channel olegario. He has atrial fibrillation (A-Fib) and his heart rate is very well controlled. 3. MSSA endocarditis. The patient is on IV cephazolin renally dosed 1 gram twice daily with a stop date of July 21. Repeat blood cultures are pending. 4. Anemia related to chronic renal failure. Iron stores are acceptable. I am starting the patient on Aranesp. 5. Secondary hyperparathyroidism of renal origin. PTH of 200 with vitamin D deficiency. Vitamin D ordered. Thank you for involving me in the care of Mr. Medrano. I will be happy to follow him along with you.
[2019-07-12] VITALS: BP 93/50
[2019-07-12] MEDS: ceFAZolin SOD 1 GM in D5W MINI-BAG PLUS 50 ML IV SCH ×2 (00:03→13:22)
[2019-07-12] MEDS: NS 0.45% 1,000 ML IV SCH ×2 (01:27→13:22)
[2019-07-12 01:55] LABS: OSMOLALITY URINE 406 MOSM/KG (500-800)
[2019-07-12 02:39] LABS: CREATININE,RANDOM URINE 68.6 MG/DL; POTASSIUM RANDOM URINE 52.6 MEQ/L; SODIUM,RANDOM URINE 22 MEQ/L; TOTAL PROTEIN,RANDOM URINE 142.4 MG/DL (0.0-12.0)
[2019-07-12 02:55] LABS: PROTEIN, URINE AUTO 1+ mg/dL (NEGATIVE)
[2019-07-12 04:00] VITALS: BP 92/55
[2019-07-12 04:48] LABS: HEMATOCRIT 26.2 % (42.0-52.0); HEMOGLOBIN 8.4 g/dl (13.5-17.5); MEAN CORPUSCULAR HGB CONC 32.1 g/dl (32.0-36.5); MEAN CORPUSCULAR VOLUME 109.2 fl (80.0-96.0); PLATELET COUNT, AUTOMATED 273 10^3/uL (150-450); WHITE BLOOD COUNT 10.9 10^3/uL (4.0-10.0)
[2019-07-12 05:16] LABS: CALCIUM LEVEL 7.1 MG/DL (8.8-10.2); CREATININE FOR GFR 3.69 MG/DL (0.70-1.30); GLOMERULAR FILTRATION RATE 16.8 (>35); POTASSIUM SERUM 3.6 MEQ/L (3.5-5.1)
[2019-07-12 08:00] VITALS: BP 101/58
[2019-07-12 08:32] LABS: HEPATITIS B SURFACE ANTIGEN NEGATIVE (NEGATIVE)
[2019-07-12 08:58] LABS: HEPATITIS B CORE ANTIBODY IGM NEGATIVE (NEGATIVE); HEPATITIS C VIRUS ABY INDEX < 0.0 INDEX (<0.8)
[2019-07-12 09:01] LABS: HEPATITIS A ANTIBODY IGM NEGATIVE (NEGATIVE)
[2019-07-12] MEDS: DOCUSATE SODIUM 100 MG CAP PO SCH ×2 (09:13→20:26)
[2019-07-12] MEDS: HYDROCORTISONE 1% CREAM 30 GM TOP SCH (09:13)
[2019-07-12] MEDS: APIXABAN 2.5 MG TAB (ELIQUIS) PO SCH ×2 (09:13→20:26)
[2019-07-12] MEDS: OMEPRAZOLE 20 MG CAP PO SCH (09:13)
--- NOTE | 2019-07-12 10:53 | IPNPDOC ---
Text Note Date of Service The patient was seen on 07/12/19. NOTE Subjective: Patient is an 84-year-old male with a PMHx of Chronic Diastolic CHF, Atrial fibrillation, SSS s/p PM, PAD/CAD, HTN, Hx of R pleural effusion, who sent to emergency room as of abnormal lab work. Patient was imaging the hospice service for further evaluation and treatment. Patient was seen and examined at the bedside. Currently patient reports that his energy levels are doing better. He denies any CP, SOB or palpitations. Denies any N/V, abdominal pain. Continues to urinate without any difficulty. Objective: Vitals (See below) General: Lying in bed, no acute distress, comfortable, AAOx3 HEENT: NC, AT CVS: RRR, +S1S2 Lungs: Fair air entry b/l, no appreciable wheezing / rhonchi / crackles Abdomen: Soft, non-distended, non-tender Extremities: No evidence of pitting edema, - Calf tenderness Assessment and plan: Acute kidney injury on CKD3 - Cr baseline of 2-3; currently at 4.10; improved since admission - Renal US 07/10: Bilateral renal cysts. Right renal atrophy. Increased renal cortical echogenicity pattern consistent with chronic medical renal disease. Mucoid material in the lumen of the urinary bladder. Right pleural effusion. 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 Garcia - Leukocytosis slightly improved; No lactic acidosis - CT abdomen / pelvis 07/09: 1. Anasarca. 2. There is diffuse pancreatic atrophy. 3. There is bilateral adrenal hyperplasia. 4. Right renal atrophy. Bilateral renal cysts measure up to 2.6 cm in the right kidney and 2.8 cm in the left kidney. No follow-up necessary. 5. There is a small amount of free intraperito viri fluid present collecting in the dependent pelvis. 6. Moderate diverticulosis is present in the distal colon. No diverticulitis. - CXR 07/10: Bilateral pleural effusions (right greater than left) and bibasilar atelectasis/consolidations along with 1.9 cm rounded density in the right mid lung zone again noted. - Blood cultures 07/10: Pending - CRP trending up / ESR elevated - ECHO - complete; report pending - c/w Cefazolin (based on prior ID recommendations) Bilateral adrenal hyperplasia - Remains asymptomatic - BP remains stable - Cortisol levels appropriate Multifactorial anemia - Hg trending down - likely 2/2 dilutional etiology - Folate / B12 normal - Iron panel consistent with deficiency - Hg has remained stable Chronic diastolic CHF - Currently she does not appear to have any signs of exacerbation - ECHO 06/13: Preserved EF, No evidence of vegetations, Prominent Aortic sclerosis, small echodensity is of the cusp of aortic valve that could represente vegetations even though the appearance is more consistent with thrombotic vegetations - Hold diuretics at this time (re: YUVAL) Chronic Atrial fibrillation - Remains rate controlled at this time - c/w rate control with Atenolol - s/p Diltiazem (re: Hypotension) - c/w full anticoagulation with Eliquis Gout - c/w Allopurinol GERD - c/w Omeprazole DVT prophylaxis - c/w full anticoagulation with Eliquis Disposition: - Awaiting results of ECHO / Blood cultures - Anticipate return back to [facility] once clinically stable VS,Fishbone, I+O VS, Fishbone, I+O Laboratory Tests 07/11/19 13:17 07/12/19 04:34 Vital Signs Date Time Temp Pulse Resp B/P (MAP) Pulse Ox O2 Delivery O2 Flow Rate FiO2 07/12/19 08:00 97.4 86 18 101/58 (72) 91 Room Air I&O- Last 24 Hours up to 6 AM 07/12/19 05:59 Intake Total 1230 ml Output Total 775 ml Balance 455 ml TRISTAN MEEHAN MD Jul 12, 2019 10:53
[2019-07-12 12:00] VITALS: BP 102/57
[2019-07-12 16:00] VITALS: BP 96/56
[2019-07-12] MEDS: SODIUM CHLORIDE 0.9% INJ 10 ML SYR IV SCH (17:10)
[2019-07-12] MEDS: atenoloL 50 MG TAB PO SCH (20:24)
[2019-07-12] MEDS: allopurinoL 300 MG TAB PO SCH (20:26)
[2019-07-12] MEDS: traZODone 50 MG TAB PO SCH (20:26)
[2019-07-13] VITALS (7 sets, daily range): BP systolic 88–109; BP diastolic 51–70
[2019-07-13] MEDS: ceFAZolin SOD 1 GM in D5W MINI-BAG PLUS 50 ML IV SCH ×2 (01:05→12:03)
[2019-07-13] MEDS: SODIUM CHLORIDE 0.9% INJ 10 ML SYR IV SCH ×2 (05:43→17:05)
[2019-07-13 06:26] LABS: C REACTIVE PROTEIN QUANTITATIV 11.5 MG/DL (0.00-0.30)
[2019-07-13 08:10] LABS: CALCIUM LEVEL 7.1 MG/DL (8.8-10.2); CREATININE FOR GFR 3.18 MG/DL (0.70-1.30); GLOMERULAR FILTRATION RATE 19.9 (>35); MAGNESIUM LEVEL 2.1 MG/DL (1.8-2.4); POTASSIUM SERUM 3.7 MEQ/L (3.5-5.1)
[2019-07-13 08:46] LABS: BASO % 0.3 % (0.0-1.0); EOS # 0.1 10^3/uL (0.0-0.5); EOS % 1.3 % (0.0-3.0); HEMATOCRIT 25.4 % (42.0-52.0); HEMOGLOBIN 8.2 g/dl (13.5-17.5); LYMPH # 0.6 10^3/uL (1.5-5.0); LYMPH % 5.7 % (24.0-44.0); MEAN CORPUSCULAR HEMOGLOBIN 34.7 pg (27.0-33.0); MEAN CORPUSCULAR HGB CONC 32.3 g/dl (32.0-36.5); MEAN CORPUSCULAR VOLUME 107.6 fl (80.0-96.0); MONO # 1.1 10^3/uL (0.0-0.8); MONO % 10.3 % (0.0-5.0); NEUTROPHILS # 8.6 10^3/uL (1.5-8.5); PLATELET COUNT, AUTOMATED 264 10^3/uL (150-450); RED BLOOD COUNT 2.36 10^6/uL (4.30-6.10); WHITE BLOOD COUNT 10.6 10^3/uL (4.0-10.0)
[2019-07-13] MEDS: VITAMIN D 50,000 UNITS CAPSULE (ERGOCALCIFEROL 1.25MG) PO SCH (09:23)
[2019-07-13] MEDS: HYDROCORTISONE 1% CREAM 30 GM TOP SCH (09:23)
[2019-07-13] MEDS: OMEPRAZOLE 20 MG CAP PO SCH (09:23)
[2019-07-13] MEDS: DOCUSATE SODIUM 100 MG CAP PO SCH ×2 (09:23→21:29)
[2019-07-13] MEDS: APIXABAN 2.5 MG TAB (ELIQUIS) PO SCH ×2 (09:23→21:29)
--- NOTE | 2019-07-13 09:43 | IPNPDOC ---
Text Note Date of Service The patient was seen on 07/13/19. NOTE Subjective: Patient is an 84-year-old male with a PMHx of Chronic Diastolic CHF, Atrial fibrillation, SSS s/p PM, PAD/CAD, HTN, Hx of R pleural effusion, who sent to emergency room as of abnormal lab work. Patient was imaging the hospice service for further evaluation and treatment. Patient was seen and examined at the bedside. Patient reports that he feels a little sleepy. He denies chest pain, shortness of breath or palpitations. Denies any nausea, vomiting, abdominal pain, diarrhea, or urinary discomfort. Patient continue to work with physical therapy and occupational therapy. Objective: Vitals (See below) General: Lying in bed, no acute distress, comfortable, AAOx3 HEENT: NC, AT CVS: RRR, +S1S2 Lungs: Air entry appears to be fair bilaterally without evidence of rhonchi, wheezing or crackles Abdomen: Again abdomen is soft without evidence of distention or tenderness Extremities: Lower extremities are free of any pitting edema, - Calf tenderness Assessment and plan: Acute kidney injury on CKD3 - Cr baseline of 2-3; currently at 4.10; - Creatinine continues to improve - Renal US 07/10: Bilateral renal cysts. Right renal atrophy. Increased renal cortical echogenicity pattern consistent with chronic medical renal disease. Mucoid material in the lumen of the urinary bladder. Right pleural effusion. 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 Garcia - Leukocytosis slightly improved; No lactic acidosis / CRP fluctuating - CT abdomen / pelvis 07/09: 1. Anasarca. 2. There is diffuse pancreatic atrophy. 3. There is bilateral adrenal hyperplasia. 4. Right renal atrophy. Bilateral renal cysts measure up to 2.6 cm in the right kidney and 2.8 cm in the left kidney. No follow-up necessary. 5. There is a small amount of free intraperitoneal fluid present collecting in the dependent pelvis. 6. Moderate diverticulosis is present in the distal colon. No diverticulitis. - CXR 07/10: Bilateral pleural effusions (right greater than left) and bibasilar atelectasis/consolidations along with 1.9 cm rounded density in the right mid lung zone again noted. - Blood cultures 07/10: Negative at 24 hours - ECHO - complete; report again remains pending - c/w Cefazolin (based on prior ID recommendations) Bilateral adrenal hyperplasia - Remains asymptomatic - BP remains stable - Cortisol levels appropriate Multifactorial anemia - Hg trending down - likely 2/2 dilutional etiology - Folate / B12 normal - Iron panel consistent with deficiency - Will transfuse if < 8 - Hg continues to remain stable Chronic diastolic CHF - Currently she does not appear to have any signs of exacerbation - ECHO 06/13: Preserved EF, No evidence of vegetations, Prominent Aortic sclerosis, small echodensity is of the cusp of aortic valve that could represente vegetations even though the appearance is more consistent with thrombotic vegetations - Hold diuretics at this time (re: YUVAL) Chronic Atrial fibrillation - Remains rate controlled at this time - c/w rate control with Atenolol - s/p Diltiazem (re: Hypotension) - c/w full anticoagulation with Eliquis Gout - c/w Allopurinol GERD - c/w Omeprazole DVT prophylaxis - c/w full anticoagulation with Eliquis Disposition: - Awaiting results of ECHO - Anticipate return back to [facility] once clinically stable VS,Myahe, I+O VS, Myahe, I+O Laboratory Tests 07/13/19 05:41 07/13/19 08:17 Vital Signs Date Time Temp Pulse Resp B/P (MAP) Pulse Ox O2 Delivery O2 Flow Rate FiO2 07/13/19 08:00 96.9 91 17 94/56 (69) 100 Room Air I&O- Last 24 Hours up to 6 AM 07/13/19 06:00 Intake Total 670 ml Output Total 400 ml Balance 270 ml TRISTAN MEEHAN MD Jul 13, 2019 09:43
[2019-07-13] MEDS: DARBEPOETIN 100 MCG/0.5 ML *NON-DIALYSIS* SYRINGE (J0881) SC SCH (10:21)
--- NOTE | 2019-07-13 10:34 | IPN ---
DATE OF SERVICE: 07/12/2019 SUBJECTIVE: Jason is seen and examined this morning sitting out of bed to the chair. He is uncomfortable as he soiled himself. Otherwise, he denies any complaints except for feeling lightheaded and dizzy every time he gets up. He continues on IV fluids. Laboratory studies show some very mild improvement in renal function. Urine output is not fully recorded. OBJECTIVE: Vital Signs: Temperature 97.5, pulse 87, respiratory rate 18, blood pressure 102/57, saturating 96% on room air. Intake yesterday was 1140. Urine output was recorded as 500 mL plus incontinent voids. Weight in the bed scale today is 74.8 kg. General: The patient is seen sitting out of bed to the chair, awake, alert, oriented at baseline mentation in no apparent distress. Extraocular muscles are intact. Tongue is moist. Neck is supple. Jugular veins are not elevated. Heart sounds S1, S2. Absolutely no edema in the legs nor in the dependent area. Lungs show diminished breath sounds on the right base, otherwise clear. Abdomen is soft and nontender. There is a dressing on his sacrum where he has ulcer per nursing staff. Skin: Normal temperature and turgor. LABS: Sodium 144, potassium 3.6, bicarbonate 24, BUN 81, creatinine 3.6. CRP lalit to 8.3, yesterday 6.6. White count 10.9, hemoglobin 8.4. Blood cultures with no growth for 24 hours x2 sets. INPATIENT MEDICATIONS: The patient continues on renally dosed cephazolin. The patient was started on Aranesp once weekly and vitamin D 50,000 units once weekly. The remainder of medications are unchanged from prior. PROBLEMS; 1. Acute kidney injury (YUVAL) on chronic kidney disease (CKD), stage 3B. 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 The patient has known underlying atrophic right kidney, most of GFR is coming from left kidney. He has been receiving IV fluids. Renal function is slowly improving. Blood pressure has come up as well, systolic is now around 100. Diuretics are on hold. The patient continues to feel lightheaded and dizzy when he gets up. Antihypertensives have generous holding parameters as well. 2. MSSA endocarditis. He continues on renally dosed cephazolin with a stop date of July 21. Repeat blood cultures were negative, but his CRP is noted to be rising. 3. Anemia related to chronic renal failure. The patient is started on Aranesp. Iron stores are acceptable. 4. Hypotension. It has improved with IV fluids and discontinuation of diuretics. There are generous holding parameters on his atenolol. His heart rate is well controlled. 5. Candiduria. I would suggest to treat with Diflucan in view of kidney injury.
[2019-07-13] MEDS: FLUCONAZOLE 100 MG TAB PO SCH (12:03)
--- NOTE | 2019-07-13 12:27 | ECHO ---
DATE OF STUDY: 07/12/2019 DATE OF : 1935 AGE: 84 REFERRING PROVIDER: Dr. Michelle Rowe PATIENT LOCATION: Room 3221 REASON FOR STUDY: Endocarditis. 2-D MEASUREMENTS: IVS: 1.0 cm LV: 4.0 cm LVPW: 1.0 cm LA: 4.9 cm Aorta: 3.1 cm DOPPLER MEASUREMENTS: Peak velocity across the aortic valve: 2.2 m/s Peak velocity across the LVOT: 1.6 m/s Peak gradient across the aortic valve: 19 mmHg Mean gradient across the aortic valve: 11 mmHg Mitral E: 0.74 Maximum tricuspid valve velocity: 3.1 m/s 2-D COMMENTS: 1. Normal left ventricular size, wall thickness, and low normal global left ventricular systolic function. The estimated left ventricular systolic ejection fraction is 50-55%. 2. Mildly enlarged left atrium and right atrium. The right ventricle also appeared to be mildly enlarged, but was milton well. 3. Normal aortic root. 4. Trace pericardial effusion noted, no evidence of cardiac tamponade. 5. Mildly calcified aortic valve with mildly restricted leaflet motion. Mildly calcified mitral annulus with normal anterior mitral valve leaflet motion. Normal tricuspid valve. The pulmonic valve and proximal pulmonary artery branches were not well visualized. 6. The inferior vena cava was not visualized. DOPPLER: It detects mild aortic regurgitation, mild mitral regurgitation, severe tricuspid regurgitation. The calculated pulmonary artery systolic pressure varies between 40-50 mmHg. Assessment of the ventricular diastolic function was limited due to underlying arrhythmias. IMPRESSION: 1. Low normal global left ventricular systolic function. Assessment of the left ventricular diastolic function was limited in view of the underlying arrhythmias. 2. Aortic valve sclerosis with mild aortic regurgitation and mild aortic stenosis. 3. Mitral annulus calcification with mild mitral regurgitation and a mildly enlarged left atrium. 4. Severe tricuspid regurgitation with moderate pulmonary hypertension and dilated right atrium. The right ventricle also was dilated, but appeared to be milton. 5. Trace pericardial effusion. 6. Not mentioned above, pacemaker wire artifacts noted in the right heart chambers. MTDD
[2019-07-13] MEDS ORDERED: NS 1,000 ML IV SCH (20:00)
[2019-07-13] MEDS: atenoloL 50 MG TAB PO SCH (21:00)
[2019-07-13] MEDS: traZODone 50 MG TAB PO SCH (21:29)
[2019-07-13] MEDS: allopurinoL 300 MG TAB PO SCH (21:30)
[2019-07-14] VITALS: BP 110/69
[2019-07-14] MEDS: ceFAZolin SOD 1 GM in D5W MINI-BAG PLUS 50 ML IV SCH ×2 (00:06→12:05)
[2019-07-14 04:00] VITALS: BP 106/67
[2019-07-14] MEDS: SODIUM CHLORIDE 0.9% INJ 10 ML SYR IV SCH ×2 (04:32→17:28)
[2019-07-14 06:23] LABS: BASO % 0.2 % (0.0-1.0); EOS # 0.1 10^3/uL (0.0-0.5); EOS % 1.6 % (0.0-3.0); HEMATOCRIT 25.5 % (42.0-52.0); HEMOGLOBIN 7.9 g/dl (13.5-17.5); LYMPH # 0.5 10^3/uL (1.5-5.0); LYMPH % 6.2 % (24.0-44.0); MEAN CORPUSCULAR HEMOGLOBIN 34.3 pg (27.0-33.0); MEAN CORPUSCULAR VOLUME 110.9 fl (80.0-96.0); MONO # 0.7 10^3/uL (0.0-0.8); MONO % 8.9 % (0.0-5.0); NEUTROPHILS # 6.8 10^3/uL (1.5-8.5); NEUTROPHILS % 81.6 % (36.0-66.0); PLATELET COUNT, AUTOMATED 264 10^3/uL (150-450); WHITE BLOOD COUNT 8.3 10^3/uL (4.0-10.0)
[2019-07-14 06:44] LABS: C REACTIVE PROTEIN QUANTITATIV 10.1 MG/DL (0.00-0.30); CALCIUM LEVEL 7.2 MG/DL (8.8-10.2); CREATININE FOR GFR 3.05 MG/DL (0.70-1.30); GLOMERULAR FILTRATION RATE 20.9 (>35); MAGNESIUM LEVEL 2.1 MG/DL (1.8-2.4); POTASSIUM SERUM 3.6 MEQ/L (3.5-5.1)
--- NOTE | 2019-07-14 07:50 | IPN ---
DATE OF SERVICE: 07/13/2019 SUBJECTIVE: Jason is seen and examined this morning at the bedside. He continues to feel lightheaded and dizzy when he gets up and is still having borderline blood pressures and hypotension. Likewise, his oral intake remains poor. His renal function continues to improve with IV fluid, however his CRP continues to rise. Echocardiogram is still pending. OBJECTIVE: Vital Signs: Temperature 97.4, pulse 90, respiratory rate 17, blood pressure 88/52, saturating 93-100% on room air. Intake yesterday was oral intake of 630, IV intake 580, and urine output of 425, net positive 780 mL. Weight in the bed scale today is 76.4 kg. General: The patient is seen lying in bed, head of the bed elevated. Elderly male awake, alert, oriented, interactive, conversational, in no apparent distress. Extraocular muscles are intact. Tongue is moist. Neck is supple. Jugular veins are mildly elevated. Heart sounds are regular. There is absolutely no edema in the legs. There is a pacemaker in the left chest wall. Lungs are diminished at the right base, otherwise clear. Abdomen is soft. There is no tenderness to palpation. The legs are negative for edema. Skin: Normal temperature and turgor. Neurologic: He is oriented, interactive at baseline mentation. LABS: Sodium 143, potassium 3.7, bicarbonate 24, BUN 74, creatinine 3.1, CRP 11.5. White count 10.6, hemoglobin 8.2. Urine culture grew yeast. INPATIENT MEDICATIONS: I started the patient on fluconazole 100 mg by mouth daily and restarted fluids at normal saline at 50 mL an hour for 1 liter. He received a first dose of Aranesp today. The remainder of medications are unchanged from prior. PROBLEMS: 1. Acute kidney injury (YUVAL) on chronic kidney disease (CKD) stage III B. Baseline creatinine is around 2 and his creatinine has improved over the course of this admission, but is not yet back to baseline. He remains with borderline blood pressures and systolic as low as the 80s and is lightheaded and dizzy when he gets up. He is also having poor oral intake. In view of poor oral intake and borderline hypotension, I am continuing him on normal saline at this time, but at a reduced rate (he does have known right pleural effusion, but remains on room air). 2. Hypotension. Systolic is mostly in the 90s. However, the patient reports he continues to feel lightheaded and dizzy when he gets up. His antihypertensives all have holding parameters and he has not received any. He is on gentle IV fluids. 3. History of atrial fibrillation. There are hold parameters written for the atenolol. He remains rate controlled and he is on low-dose Eliquis for anticoagulation. 4. 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 The patient continues on renally dosed cephazolin with a stop date of July 21. His CRP continues to rise. An echocardiogram is pending. Blood cultures are negative. 5. Fungal urinary tract infection (UTI). In view of his acute kidney injury, I have opted to treat and he is receiving renally dosed Diflucan. 6. Anemia related to chronic renal failure. His iron stores are adequate and he was started on weekly Aranesp. There is no urgent indication for transfusion at present.
[2019-07-14 08:00] VITALS: BP 112/70
--- NOTE | 2019-07-14 09:02 | IPNPDOC ---
Text Note Date of Service The patient was seen on 07/14/19. NOTE Subjective: Patient is an 84-year-old male with a PMHx of Chronic Diastolic CHF, Atrial fibrillation, SSS s/p PM, PAD/CAD, HTN, Hx of R pleural effusion, who sent to emergency room as of abnormal lab work. Patient was imaging the hospice service for further evaluation and treatment. Patient was seen and examined at the bedside. . Currently, patient reports that he's had an uneventful evening. Patient denies any chest pain, shortness of breath or palpitations. Denies nausea, vomiting, abdominal pain, diarrhea, or urinary discomfort. Objective: Vitals (See below) General: Lying in bed, no acute distress, comfortable, Awake / alert HEENT: NC, AT CVS: RRR, +S1S2 Lungs: Air entry appears to be fair bilaterally without evidence of wheezing, rhonchi, or rales Abdomen: Nondistended and nontender abdomen. The remained soft Extremities: Lower extremities appear to be free of any edema, - Calf tenderness Assessment and plan: Acute kidney injury on CKD3 - Cr baseline of 2-3; currently at 4.10; - Creatinine has been slowly trending down approaching baseline - Renal US 07/10: Bilateral renal cysts. Right renal atrophy. Increased renal cortical echogenicity pattern consistent with chronic medical renal disease. Mucoid material in the lumen of the urinary bladder. Right pleural effusion. 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 Garcia - s/p Leukocytosis; No lactic acidosis, CRP fluctuating - CT abdomen / pelvis 07/09: 1. Anasarca. 2. There is diffuse pancreatic atrophy. 3. There is bilateral adrenal hyperplasia. 4. Right renal atrophy. Bilateral re nal cysts measure up to 2.6 cm in the right kidney and 2.8 cm in the left kidney. No follow-up necessary. 5. There is a small amount of free intraperitoneal fluid present collecting in the dependent pelvis. 6. Moderate diverticulosis is present in the distal colon. No diverticulitis. - CXR 07/10: Bilateral pleural effusions (right greater than left) and bibasilar atelectasis/consolidations along with 1.9 cm rounded density in the right mid lung zone again noted. - Blood cultures 07/10: Negative at 24 hours - ECHO 06/2013: Low-normal global left ventricular systolic function, assessment of diastolic function Limited, mild mitral regurgitation, severe tricuspid regurgitation, moderate pulmonary hypertension, trace pericardial effusion - c/w Cefazolin (based on prior ID recommendations) Bilateral adrenal hyperplasia - Remains asymptomatic - BP has improved - Cortisol levels appropriate Multifactorial anemia - Hg trending down - likely 2/2 dilutional etiology - Folate / B12 normal - Iron panel consistent with deficiency - Will repeat H&H at 12 to confirm - Hg continues to remain stable Chronic diastolic CHF - Currently she does not appear to have any signs of exacerbation - ECHO 06/13: Preserved EF, No evidence of vegetations, Prominent Aortic sclerosis, small echodensity is of the cusp of aortic valve that could represente vegetations even though the appearance is more consistent with thrombotic vegetations - Hold diuretics at this time (re: YUVAL) Chronic Atrial fibrillation - Remains rate controlled at this time - c/w rate control with Atenolol - s/p Diltiazem (re: Hypotension) - c/w full anticoagulation with Eliquis Gout - c/w Allopurinol GERD - c/w Omeprazole DVT prophylaxis - c/w full anticoagulation with Eliquis Disposition: - Anticipate return back to [facility] once clinically stable VS,Fishbone, I+O VS, Fishbone, I+O Laboratory Tests 07/14/19 05:46 Vital Signs Date Time Temp Pulse Resp B/P (MAP) Pulse Ox O2 Delivery O2 Flow Rate FiO2 07/14/19 04:00 96.7 87 18 106/67 (80) 96 Room Air I&O- Last 24 Hours up to 6 AM 07/14/19 05:59 Intake Total 775 ml Output Total 525 ml Balance 250 ml TRISTAN MEEHAN MD Jul 14, 2019 09:02
[2019-07-14] MEDS: APIXABAN 2.5 MG TAB (ELIQUIS) PO SCH ×2 (09:13→20:53)
[2019-07-14] MEDS: OMEPRAZOLE 20 MG CAP PO SCH (09:13)
[2019-07-14] MEDS: FLUCONAZOLE 100 MG TAB PO SCH (09:13)
[2019-07-14] MEDS: DOCUSATE SODIUM 100 MG CAP PO SCH ×2 (09:13→20:53)
[2019-07-14] MEDS: HYDROCORTISONE 1% CREAM 30 GM TOP SCH (09:14)
[2019-07-14 12:00] VITALS: BP 105/69
[2019-07-14 12:11] LABS: HEMATOCRIT 26.4 % (42.0-52.0); HEMOGLOBIN 8.2 g/dl (13.5-17.5)
[2019-07-14 16:00] VITALS: BP 106/72
[2019-07-14 20:00] VITALS: BP 128/74
[2019-07-14] MEDS: atenoloL 50 MG TAB PO SCH (20:53)
[2019-07-14] MEDS: allopurinoL 300 MG TAB PO SCH (20:53)
[2019-07-14] MEDS: traZODone 50 MG TAB PO SCH (20:53)
--- NOTE | 2019-07-14 21:08 | IPN ---
DATE: 07/14/2019 SUBJECTIVE: Jason is seen and examined today at the bedside sitting out of bed to chair. He continues to complain of lightheadedness when he gets up, also reports shortness of breath with exertion. He wants more physical therapy. Renal function continues to improve. He denies any dysuria. Vital signs: Temperature 96.9, pulse 94, respiratory rate 18, blood pressure 106/72, saturating 93% on room air. Intake yesterday was 775, urine output yesterday was 425, weight in the bed scale today 76.3 kg. General: The patient is seen sitting out of bed to the chair, elderly male, awake, alert, conversational, smiling, interactive and bright, in no apparent distress. Extraocular muscles are intact. Tongue is moist. Neck is supple. Jugular veins were not elevated while he was sitting upright. Heart sounds are regular, S1, S2. There is absolutely no edema in the legs nor in the dependent area. Lungs show very diminished breath sounds at the right base, otherwise clear. He is comfortable on room air. No accessory muscle use. Abdomen is soft and nontender. Skin: Normal temperature and turgor. There is scattered ecchymosis. Neurologic: Oriented times three, at baseline mentation. Sodium 145, potassium 3.6, BUN 71, creatinine 3.0, magnesium 2.1, CRP 10, hemoglobin 8.2. INPATIENT MEDICATIONS: He is off of IV fluids. He continues on renally dosed cephazolin. He received a dose of Aranesp yesterday. Remainder of medications are unchanged from prior. PROBLEMS: 1. YUVAL on CKD stage IIIB. Baseline creatinine is around low 2s. His renal function has been improving over the course of this admission. He is off of IV fluids. His blood pressures are improved. He continues to feel lightheaded and dizzy when he gets up. I am going to get a carotid Doppler. He is encouraged for oral intake. Blood pressures are overall improved and I am hopeful that he will not need further IV fluid. 2. Hypotension. It is improved, systolics are in the low 100s. He is off of IV fluids. His antihypertensives all have holding parameters. 3. Dizziness and lightheadedness upon standing. Carotid Doppler ordered. 4. Fungal UTI. He is receiving renally dosed Diflucan. 5. MSSA endocarditis. He continues on renally dosed cephazolin with stop date of 07/22/2019. His CRP is slightly improved from 11 down to 10. Suggest reevaluation by infectious diseases if CRP does not continue to decline. 6. Anemia related to chronic renal failure. His iron stores are adequate. He was started on weekly Aranesp. No urgent indication for transfusion. However, if his carotid duplex is negative / normal, then would consider transfusing him to see if that helps with his dizziness and lightheadedness. 7. Right pleural effusion status post thoracentesis in the recent past. Will reevaluate with two-view chest x-ray.
--- NOTE | 2019-07-14 23:06 | REPVR ---
PROCEDURE INFORMATION: Exam: US Duplex Bilateral Extracranial Arteries Exam date and time: 07/14/2019 10:21 PM Age: 84 years old Clinical indication: Dizziness; Additional info: Dizzyness TECHNIQUE: Imaging protocol: Real-time Duplex ultrasound scan of the bilateral carotid and vertebral arteries combining gutierrez scale, color Doppler and spectral waveform analysis. Bilateral exam. COMPARISON: CT Head without contrast 06/08/2019 3:29 AM FINDINGS: Right side: There is moderate to severe irregular atherosclerotic plaque formation right carotid bifurcation. The right ICA/CCA ratio is 1.35 and peak velocity is 68 cm/s. There would be no significant stenosis of the right internal carotid artery and the amount of narrowing would be less than 50%. The right vertebral artery is antegrade. Left side: There is moderate to severe irregular atherosclerotic plaque formation left carotid bifurcation. The left ICA/CCA ratio is 1.6 with a peak velocity of the left internal carotid artery 132 cm/s. The amount of narrowing of the left internal carotid artery would be 50-69% stenosis. The left vertebral artery is antegrade. IMPRESSION: 50-69% stenosis left internal carotid artery. REFERENCES: Carotid Stenosis Reference using SRU criteria: Mild: less than 50% stenosis. ICA PSV is less than 125 cm/second and plaque or intimal thickening is visible. Moderate: 50-69% stenosis. ICA PSV is 125 to 230 cm/second and plaque is visible. Severe: 70-94% stenosis. ICA PSV is more than 230 cm/second and visible plaque and lumen narrowing are seen. Near occlusion: 95-99% stenosis. ICA PSV is variable and significant plaque and luminal narrowing are seen. Occluded: 100% stenosis. No flow identified. Electronically signed by: Roger Lassiter On 07/14/2019 23:06:04 PM
[2019-07-15] VITALS (12 sets, daily range): BP systolic 101–132; BP diastolic 61–80
[2019-07-15] MEDS: ceFAZolin SOD 1 GM in D5W MINI-BAG PLUS 50 ML IV SCH ×2 (00:13→12:11)
[2019-07-15] MEDS: SODIUM CHLORIDE 0.9% INJ 10 ML SYR IV SCH ×2 (05:00→17:51)
[2019-07-15 05:35] LABS: BASO % 0.3 % (0.0-1.0); EOS # 0.1 10^3/uL (0.0-0.5); EOS % 1.4 % (0.0-3.0); HEMATOCRIT 24.5 % (42.0-52.0); HEMOGLOBIN 7.6 g/dl (13.5-17.5); LYMPH # 0.5 10^3/uL (1.5-5.0); LYMPH % 6.8 % (24.0-44.0); MEAN CORPUSCULAR HEMOGLOBIN 34.9 pg (27.0-33.0); MEAN CORPUSCULAR VOLUME 112.4 fl (80.0-96.0); MONO # 0.7 10^3/uL (0.0-0.8); MONO % 10.4 % (0.0-5.0); NEUTROPHILS # 5.5 10^3/uL (1.5-8.5); NEUTROPHILS % 79.7 % (36.0-66.0); PLATELET COUNT, AUTOMATED 236 10^3/uL (150-450); RED BLOOD COUNT 2.18 10^6/uL (4.30-6.10)
[2019-07-15 06:01] LABS: C REACTIVE PROTEIN QUANTITATIV 8.16 MG/DL (0.00-0.30); CALCIUM LEVEL 7.4 MG/DL (8.8-10.2); CREATININE FOR GFR 2.43 MG/DL (0.70-1.30); GLOMERULAR FILTRATION RATE 27.1 (>35); MAGNESIUM LEVEL 2.1 MG/DL (1.8-2.4); POTASSIUM SERUM 3.6 MEQ/L (3.5-5.1)
[2019-07-15] MEDS: DOCUSATE SODIUM 100 MG CAP PO SCH ×2 (08:18→21:00)
[2019-07-15] MEDS: OMEPRAZOLE 20 MG CAP PO SCH (08:18)
[2019-07-15] MEDS: APIXABAN 2.5 MG TAB (ELIQUIS) PO SCH ×2 (08:18→20:59)
[2019-07-15] MEDS: FLUCONAZOLE 100 MG TAB PO SCH (08:18)
[2019-07-15] MEDS: HYDROCORTISONE 1% CREAM 30 GM TOP SCH (08:19)
--- NOTE | 2019-07-15 09:11 | REP ---
Chest x-ray: Two views. History: Right pleural effusion. Reevaluate. Findings: There is persistent blunting of the right lateral pleural angle and slight blunting of the left lateral pleural angle. Both posterior pleural angles remain blunted on the lateral radiograph. There is slight fissural thickening at the base and one of the major fissures. No new infiltrate is seen. A nodular opacity persists in the right base. Borderline heart size. Aorta is calcific and tortuous. A bipolar pacemaker is in place via the left side and a right-sided PICC line is noted in place with its tip in the expected location of the superior vena cava. There are surgical clips in the soft tissues of the neck on the right. Impression: Small bilateral pleural effusions, right greater than left. Findings similar to the most recent prior study. Electronically Signed by Hollis Weems MD 07/15/2019 09:02 A
--- NOTE | 2019-07-15 10:31 | IPNPDOC ---
Text Note Date of Service The patient was seen on 07/15/19. NOTE Subjective: Patient is an 84-year-old male with a PMHx of Chronic Diastolic CHF, Atrial fibrillation, SSS s/p PM, PAD/CAD, HTN, Hx of R pleural effusion, who sent to emergency room as of abnormal lab work. Patient was imaging the hospice service for further evaluation and treatment. Patient was seen and examined at the bedside. Again this morning patient has no new complaints, reports that he feels more energized. Denies any N/V, abdominal pain, C/D. Has been working with physical therapy. Objective: Vitals (See below) General: Lying in bed, no acute distress, comfortable, Awake / alert HEENT: NC, AT CVS: +S1S2 Lungs: Appears to have fair air entry b/l, no wheezing / rhonchi / crackles Abdomen: Abdomen remains soft without distention / tenderness Extremities: 1+ pitting edema at LE, - Calf tenderness Assessment and plan: Acute kidney injury on CKD3 - Cr baseline of 2-3; currently appears to have trended down to baseline levels - Renal US 07/10: Bilateral renal cysts. Right renal atrophy. Increased renal cortical echogenicity pattern consistent with chronic medical renal disease. Mucoid material in the lumen of the urinary bladder. Right pleural effusion. 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 Garcia - s/p Leukocytosis; No lactic acidosis, CRP trending down over last 3 days - CT abdomen / pelvis 07/09: 1. Anasarca. 2. There is diffuse pancreatic atrophy. 3. There is bilateral adrenal hyperplasia. 4. Right renal atrophy. Bilateral renal cysts measure up to 2.6 cm in the right kidney and 2.8 cm in the left kidney. No follow-up necessary. 5. There is a small amount of free intraperitoneal fluid present collecting in the dependent pelvis. 6. Moderate diverticulosis is present in the distal colon. No diverticulitis. - CXR 07/10: Bilateral pleural effusions (right greater than left) and bibasilar atelectasis/consolidations along with 1.9 cm rounded density in the right mid lung zone again noted. - Blood cultures 3/12: Negative at 72 hours - ECHO 06/2013: Low-normal global left ventricular systolic function, assessment of diastolic function Limited, mild mitral regurgitation, severe tricuspid regurgitation, moderate pulmonary hypertension, trace pericardial effusion - c/w Cefazolin (based on prior ID recommendations) Bilateral adrenal hyperplasia - Remains asymptomatic - BP continues to improve - Cortisol levels appropriate Multifactorial anemia - Hg trending down - likely 2/2 dilutional etiology - Folate / B12 normal - Iron panel consistent with deficiency - Will repeat H&H at 12 to confirm - Hg continues to remain stable Chronic diastolic CHF - Currently she does not appear to have any signs of exacerbation - ECHO 06/13: Preserved EF, No evidence of vegetations, Prominent Aortic sclerosis, small echodensity is of the cusp of aortic valve that could represente vegetations even though the appearance is more consistent with thrombotic vegetations - Hold diuretics at this time (re: YUVAL) Chronic Atrial fibrillation - Remains rate controlled at this time - c/w rate control with Atenolol - s/p Diltiazem (re: Hypotension) - c/w full anticoagulation with Eliquis Gout - c/w Allopurinol GERD - c/w Omeprazole DVT prophylaxis - c/w full anticoagulation with Eliquis Disposition: - Anticipate return back to [facility] once clinically stable - Possible placement at [facility] facility VS,Amy, I+O VSAmy, I+O Laboratory Tests 07/14/19 12:00 07/15/19 05:16 Vital Signs Date Time Temp Pulse Resp B/P (MAP) Pulse Ox O2 Delivery O2 Flow Rate FiO2 07/15/19 08:00 96.9 87 18 119/63 (81) 97 Room Air I&O- Last 24 Hours up to 6 AM 07/15/19 06:00 Intake Total 1625 ml Output Total 525 ml Balance 1100 ml TRISTAN MEEHAN MD Jul 15, 2019 10:31
[2019-07-15 12:34] LABS: HEMATOCRIT 27.6 % (42.0-52.0); HEMOGLOBIN 8.5 g/dl (13.5-17.5)
[2019-07-15] MEDS ORDERED: FUROSEMIDE 100 MG/10 ML VIAL (J1940) IV ONE (13:00)
[2019-07-15] MEDS: SODIUM CHLORIDE 0.9% INJ 10 ML SYR IV PRN (15:01)
--- NOTE | 2019-07-15 18:06 | IPN ---
DATE: 07/15/2019 Mr. Medrano is seen this morning on his bedside. His daughter is present in the room. The patient was sleeping, and I woke him up. He still feels very weak but denies any dyspnea, chest pain, fever, or chills. He is eating better now. PHYSICAL EXAMINATION: Temperature 96.9 degrees Fahrenheit, heart rate 87 per minute, respiratory rate 18 per minute, blood pressure 119/63 mm of mercury, and oxygen saturation 97% on room air. His head is atraumatic. Neck is supple and jugular venous distention (JVD) about 9 cm above sternal angle. There is no oral thrush or ulcers. Heart sounds are regular with a systolic murmur but no pericardial friction rub. Lungs have slightly diminished breath sounds in right base. Abdomen soft and nontender, and bowel sounds are normal. Extremities without any cyanosis or clubbing. Neurologically, he is awake, alert, and without a focal deficit. Today's labs show WBC count 7.0, hemoglobin 7.6, and hematocrit 24.5. Sodium 147, potassium 3.6, CO2 of 25, BUN 61, and creatinine 2.43. C-reactive protein is slightly better and 8.16. PROBLEMS: 1. Acute renal failure superimposed on chronic kidney disease. Probably at least partly it was prerenal and has improved since his diuretics have been on hold. He seems to be now slightly volume overloaded. His intravenous (IV) fluid has been stopped, and we will give him only one dose of Lasix 60 mg today prior to transfusion and will continue to hold his regular diuretic. 2. Anemia. His anemia is worsened today without any obvious blood loss. He has been on Eliquis and may have some chronic gastrointestinal (GI) blood loss. I recommend to transfuse 2 units of packed red blood cell (RBC). He has been on Aranesp, but it is not helping much. 3. Congestive heart failure. Volume status is slightly decompensated, and Lasix 60 mg one dose will be given intravenously prior to transfusion. We will recheck him tomorrow and continued to use diuretic on an as-needed basis. 4. 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 The patient has been on antibiotic and is currently afebrile. Blood cultures have been negative. He will be followed by Dr. Garcia.
[2019-07-15] MEDS: traZODone 50 MG TAB PO SCH (20:59)
[2019-07-15] MEDS: allopurinoL 300 MG TAB PO SCH (21:00)
[2019-07-15] MEDS: atenoloL 50 MG TAB PO SCH (21:00)
[2019-07-16] VITALS (10 sets, daily range): BP systolic 88–130; BP diastolic 54–79
[2019-07-16] MEDS: ceFAZolin SOD 1 GM in D5W MINI-BAG PLUS 50 ML IV SCH ×2 (00:18→15:43)
[2019-07-16] MEDS: SODIUM CHLORIDE 0.9% INJ 10 ML SYR IV SCH ×2 (05:19→17:28)
[2019-07-16 05:43] LABS: BASO % 0.4 % (0.0-1.0); EOS # 0.1 10^3/uL (0.0-0.5); EOS % 1.3 % (0.0-3.0); HEMATOCRIT 25.4 % (42.0-52.0); HEMOGLOBIN 8.1 g/dl (13.5-17.5); LYMPH # 0.5 10^3/uL (1.5-5.0); LYMPH % 6.5 % (24.0-44.0); MEAN CORPUSCULAR HEMOGLOBIN 34.3 pg (27.0-33.0); MEAN CORPUSCULAR HGB CONC 31.9 g/dl (32.0-36.5); MEAN CORPUSCULAR VOLUME 107.6 fl (80.0-96.0); MONO # 0.9 10^3/uL (0.0-0.8); MONO % 12.5 % (0.0-5.0); NEUTROPHILS # 5.4 10^3/uL (1.5-8.5); NEUTROPHILS % 77.9 % (36.0-66.0); PLATELET COUNT, AUTOMATED 210 10^3/uL (150-450); RED BLOOD COUNT 2.36 10^6/uL (4.30-6.10)
[2019-07-16 05:54] LABS: C REACTIVE PROTEIN QUANTITATIV 7.59 MG/DL (0.00-0.30); CALCIUM LEVEL 7.6 MG/DL (8.8-10.2); CREATININE FOR GFR 2.12 MG/DL (0.70-1.30); GLOMERULAR FILTRATION RATE 31.8 (>35); POTASSIUM SERUM 2.9 MEQ/L (3.5-5.1)
[2019-07-16] MEDS ORDERED: POTASSIUM CHLORIDE 10 MEQ SR TABLET PO ONE ×2 (06:00→09:00)
[2019-07-16] MEDS: OMEPRAZOLE 20 MG CAP PO SCH (08:45)
[2019-07-16] MEDS: HYDROCORTISONE 1% CREAM 30 GM TOP SCH (08:46)
[2019-07-16] MEDS: FLUCONAZOLE 100 MG TAB PO SCH (08:46)
[2019-07-16] MEDS: DOCUSATE SODIUM 100 MG CAP PO SCH ×2 (08:46→20:43)
[2019-07-16] MEDS: APIXABAN 2.5 MG TAB (ELIQUIS) PO SCH ×2 (08:46→20:44)
--- NOTE | 2019-07-16 10:23 | IPNPDOC ---
Text Note Date of Service The patient was seen on 07/16/19. NOTE Subjective: Patient is an 84-year-old male with a PMHx of Chronic Diastolic CHF, Atrial fibrillation, SSS s/p PM, PAD/CAD, HTN, Hx of R pleural effusion, who sent to emergency room as of abnormal lab work. Patient was imaging the hospice service for further evaluation and treatment. Patient was seen and examined at the bedside. Clinically, patient reports that his energy levels have improved. He denies any cough, palpitations or chest pain. Still reports shortness of breath with exertion. Denies any nausea, vomiting, abdominal pain, diarrhea, or urinary discomfort. Objective: Vitals (See below) General: Lying in bed, no acute distress, comfortable, Awake / alert HEENT: NC, AT CVS: +S1S2 Lungs: Air entry appears to be faint at b/l lower guerra, No evidence of rhonchi, wheezing or crackles Abdomen: No distention or tenderness and remains soft Extremities: 1+ pitting edema at LE is again appreciated, - Calf tenderness Assessment and plan: s/p Acute kidney injury on CKD3 - Cr baseline of 2-3; currently appears to have trended down to baseline levels - Renal US 07/10: Bilateral renal cysts. Right renal atrophy. Increased renal cortical echogenicity pattern consistent with chronic medical renal disease. Mucoid material in the lumen of the urinary bladder. Right pleural effusion. 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 Garcia - s/p Leukocytosis; No lactic acidosis, CRP trending down over last 3 days - CT abdomen / pelvis 07/09: 1. Anasarca. 2. There is diffuse pancreatic atrophy. 3. There is bilateral adrenal hyperplasia. 4. Right renal atrophy. Bilateral renal cysts measure up to 2.6 cm in the right kidney and 2.8 cm in the left kidney. No follow-up necessary. 5. There is a small amount of free intraperitoneal fluid present collecting in the dependent pelvis. 6. Moderate diverticulosis is present in the distal colon. No diverticulitis. - CXR 07/10: Bilateral pleural effusions (right greater than left) and bibasilar atelectasis/consolidations along with 1.9 cm rounded density in the right mid lung zone again noted. - Blood cultures 07/10: Negative at 72 hours - ECHO 06/2013: Low-normal global left ventricular systolic function, assessment of diastolic function Limited, mild mitral regurgitation, severe tricuspid regurgitation, moderate pulmonary hypertension, trace pericardial effusion - c/w Cefazolin (based on prior ID recommendations) Bilateral adrenal hyperplasia - Remains asymptomatic - BP continues to improve - Cortisol levels appropriate Multifactorial anemia - 2/2 CKD, AOCD - Hg trending down - likely 2/2 dilutional etiology - Folate / B12 normal - s/p 1 unit PRBC transfusion - Will provide additional unit of PRBC today Chronic diastolic CHF - Currently she does not appear to have any signs of exacerbation - ECHO 06/13: Preserved EF, No evidence of vegetations, Prominent Aortic sclerosis, small echodensity is of the cusp of aortic valve that could represente vegetations even though the appearance is more consistent with thrombotic vegetations - c/w diuresis as per nephrology Chronic Atrial fibrillation - Remains rate controlled at this time - c/w rate control with Atenolol - s/p Diltiazem (re: Hypotension) - c/w full anticoagulation with Eliquis Gout - c/w Allopurinol GERD - c/w Omeprazole DVT prophylaxis - c/w full anticoagulation with Eliquis Disposition: - Anticipate return back to [facility] once clinically stable; possible placement at [facility] facility VS,Fishbone, I+O VS, Fishbone, I+O Laboratory Tests 07/15/19 12:13 07/16/19 05:01 Vital Signs Date Time Temp Pulse Resp B/P (MAP) Pulse Ox O2 Delivery O2 Flow Rate FiO2 07/16/19 08:00 97.7 89 18 88/54 (65) 97 Room Air I&O- Last 24 Hours up to 6 AM 07/16/19 06:00 Intake Total 1218 ml Output Total 1520 ml Balance -302 ml TRISTAN MEEHAN MD Jul 16, 2019 10:23
[2019-07-16] MEDS: atenoloL 50 MG TAB PO SCH (20:44)
[2019-07-16] MEDS: allopurinoL 300 MG TAB PO SCH (20:44)
[2019-07-16] MEDS: traZODone 50 MG TAB PO SCH (20:44)
--- NOTE | 2019-07-16 21:08 | IPN ---
DATE: 07/16/2019 Mr. Medrano is seen this morning on his bedside. He is feeling about the same and denies any new complaints. He has been weak and requires assistance even for getting up from the bed. He denies any nausea, vomiting, fever, or chills. He was transfused 1 unit of packed red blood cells (RBC) yesterday. PHYSICAL EXAMINATION: Today, temperature 97.6 degrees Fahrenheit, heart rate 96 per minute, respiratory rate 18 per minute, blood pressure 116/73 mm of mercury, and oxygen saturation 95% on room air. Head is atraumatic. Neck supple and jugular venous distention (JVD) about 9-10 cm above sternal angle. Heart sounds are regular with systolic murmur grade 2/6, and no pericardial friction rub. Lungs have diminished breath sounds in right lower half, and left side sounds much clearer. Abdomen soft and nontender, and bowel sounds are normal. Extremities without any cyanosis or clubbing. Neurologically, he is awake, alert, and at his baseline mentation. Today's labs show WBC count 7.0, hemoglobin 8.1, and hematocrit 25.4. Platelets 210. Sodium 147, potassium 2.9, BUN 56, and creatinine 2.12. Calcium level 7.6 and magnesium 2.0. PROBLEMS: 1. Acute renal failure superimposed on chronic kidney disease, most likely prerenal azotemia. His kidney function has improved significantly since admission. 2. Hypokalemia, most likely related to diuretic given yesterday and poor oral intake. He has already received potassium supplement, and electrolytes should be repeated again tomorrow morning. 3. Hyponatremia, mild unchanged hypernatremia, again related to diuretic use. We will continue to monitor without any intervention and hold off on any further diuretic today. 4. Anemia. The patient received only 1 unit of packed RBC yesterday and is going to get another unit today. He is already received Aranesp 100 mcg on Monday. 5. Congestive heart failure and pleural effusion. The patient has right pleural effusion on clinical exam. Unfortunately, this is not likely to resolve with diuresis. My feeling is that he will require thoracentesis. Will discuss with the hospitalist service tomorrow.
[2019-07-17] MEDS: ceFAZolin SOD 1 GM in D5W MINI-BAG PLUS 50 ML IV SCH ×2 (00:22→12:19)
[2019-07-17] MEDS: SODIUM CHLORIDE 0.9% INJ 10 ML SYR IV PRN (01:22)
[2019-07-17 04:00] VITALS: BP 117/63
[2019-07-17] MEDS: SODIUM CHLORIDE 0.9% INJ 10 ML SYR IV SCH ×2 (05:30→17:42)
[2019-07-17 05:32] LABS: BASO % 0.8 % (0.0-1.0); EOS # 0.1 10^3/uL (0.0-0.5); EOS % 1.3 % (0.0-3.0); HEMATOCRIT 29.7 % (42.0-52.0); HEMOGLOBIN 9.5 g/dl (13.5-17.5); LYMPH # 0.4 10^3/uL (1.5-5.0); LYMPH % 8.1 % (24.0-44.0); MEAN CORPUSCULAR VOLUME 103.1 fl (80.0-96.0); MONO # 0.8 10^3/uL (0.0-0.8); MONO % 15.1 % (0.0-5.0); NEUTROPHILS # 3.9 10^3/uL (1.5-8.5); NEUTROPHILS % 73.6 % (36.0-66.0); PLATELET COUNT, AUTOMATED 208 10^3/uL (150-450); RED BLOOD COUNT 2.88 10^6/uL (4.30-6.10); WHITE BLOOD COUNT 5.3 10^3/uL (4.0-10.0)
[2019-07-17 05:45] LABS: CALCIUM LEVEL 7.7 MG/DL (8.8-10.2); CREATININE FOR GFR 1.95 MG/DL (0.70-1.30); POTASSIUM SERUM 3.7 MEQ/L (3.5-5.1)
[2019-07-17 08:00] VITALS: BP 100/60
[2019-07-17] MEDS: FLUCONAZOLE 100 MG TAB PO SCH (08:28)
[2019-07-17] MEDS: OMEPRAZOLE 20 MG CAP PO SCH (08:28)
[2019-07-17] MEDS: APIXABAN 2.5 MG TAB (ELIQUIS) PO SCH (08:28)
[2019-07-17] MEDS: DOCUSATE SODIUM 100 MG CAP PO SCH ×2 (08:28→20:09)
[2019-07-17] MEDS: HYDROCORTISONE 1% CREAM 30 GM TOP SCH (08:30)
--- NOTE | 2019-07-17 10:06 | IPN ---
DATE: 07/17/2019 Jason was seen while rounding for the hospitalist. He has a history of chronic diastolic congestive heart failure, atrial fibrillation, acute kidney injury superimposed on stage III chronic kidney disease. He has reported pleural effusion, for which he underwent thoracentesis in the past. He is short of breath with minimal exertion per occupational therapist today. PHYSICAL EXAMINATION: Blood pressure 100/56, pulse 97, respiratory rate 18, 97% oxygen saturation. General Appearance: Frail elderly, chronically ill-appearing, resting in bed. No jugular venous distention (JVD). HEENT: Unremarkable. Lungs: Decreased breath sounds on the right side. Dull to percuss. Heart: Regular and rhythm, 1/6 systolic ejection murmur. Abdomen: Soft, nontender, no masses. Trace peripheral edema. LABS: White count 5.3, hemoglobin 9.5, platelets 208. Sodium 149, potassium 3.7, BUN 52, creatinine 1.95, glucose 110. IMPRESSION: 1. Right pleural effusion: Case was discussed with Dr. Barber Jeffers. He will see the patient in consultation and consider thoracentesis or other management of pleural effusion. CT scan of the chest without contrast ordered. 2. Acute kidney injury on chronic kidney disease: Renal function is trending down towards baseline. Nephrology is involved. Appreciate their input. 3. Hypernatremia: Discussed with nursing staff the need to push fluids today. Recheck ordered for the morning. 4. Atrial fibrillation: Rate is controlled. Anticoagulant with Eliquis. 5. History of methicillin sensitive Staphylococcus aureus (MSSA), endocarditis. Continue his IV Ancef which he is supposed to continue through 07/22/2019 as the end of the last day of therapy for staphylococcus aureus endocarditis, diagnosed on 06/07/2019.
--- NOTE | 2019-07-17 10:50 | REP ---
CT CHEST WITHOUT CONTRAST: HISTORY: Effusions. Comparison chest x-ray July 15, 2019. Comparison chest x-ray June 09, 2019. Comparison CT chest June 07, 2019. CT FINDINGS: There is a right-sided PICC line terminating in the superior vena cava. Bipolar pacemaker leads are noted in the right heart via the left side. Vascular calcification is noted. There is no evidence of mediastinal mass or adenopathy. Mild cardiomegaly is observed. There is a very small amount of pericardial fluid. There are bilateral pleural effusions which have increased from June 07, 2019. The right pleural effusion has a multiloculated appearance with loculated appearing fluid collections anterolaterally, superiorly, and posteromedially. There is some fissural fluid again noted along the major fissure and the minor fissure. There is compressive atelectasis in the right lower lobe and left lower lobe. There is a new pulmonary parenchymal finding of ground-glass opacity type infiltrate in the right upper lobe and anteriorly in the left upper lobe. No pulmonary nodule or mass lesion is observed. There is a granulomatous calcification in the left lower lobe. IMPRESSION: Bilateral pleural effusions right greater than left. Right effusion continues to have a loculated appearance similar to the prior study. Both effusions are larger than on the June 07, 2019 prior study. Cardiomegaly with pacemaker. New areas of ground-glass opacity in the upper lobes bilaterally question infiltrate versus edema. Electronically Signed by Hollis Weems MD 07/17/2019 12:16 P
[2019-07-17 12:00] VITALS: BP 136/66
--- NOTE | 2019-07-17 12:25 | IPN ---
DATE: 07/17/2019 I am asked again to see Mr. Medrano by the hospitalist service for recurrent pleural effusion. I first saw him at the end of May where he was admitted to the hospital in a stuporous inebriated state with alcohol withdrawal. He had a history of having undergone two thoracenteses in August 2018 and early May 2019. After his second thoracentesis he was noted to have a pneumothorax for which an anterior chest tube was placed with a complete resolution of his pneumothorax. He was re-admitted with reaccumulated pleural effusion and a posterior lateral chest tube was placed with 2000 mL of fluid that was exudative, but mononuclear and normal glycemic. Chest tube was eventually removed and this patient was discharged to a [facility]. [facility] for rise in creatinine at 4.9. That admission was on July 10. Patient states that he is becoming more short of breath just walking around his room. His chest x-ray was reobtained which showed a recurrence of his right pleural effusion which has been confirmed with a CAT scan. He was suggested to have an acute kidney injury superimposed upon his chronic renal disease as thought to be secondary to volume depletion secondary to atrial fibrillation and bacteremia. His blood cultures in June showed Staphylococcus aureus sensitive to everything except penicillin J. He is also thought to have methicillin-sensitive Staphylococcus aureus (MSSA) endocarditis. His vital signs since admission have not shown a temperature above 99. His T-max over the last 24 hours has been 97.9. His heart rate is ranging between 88 and 107 in atrial fibrillation with a respiratory rate of 16 to 18 without the use of accessory muscles at rest who is 97% saturated on room air. Blood pressure is 117/63 to 100/60. His intake and output over the last 24 hours has been recorded as 550 in and 1355 out for a negativity of 805 mL. His urine out put is 1355 mL and he weighs 75.5 kilos. PHYSICAL EXAMINATION: He has markedly decreased breath sounds in the right lower hemithorax with a dull percussion noted. I hear rhonchi and rales in both lower hemithoraces. These do not clear with coughing. Cardiac exam is without murmurs, clicks, gallops, or rubs. I do not hear the tricuspid regurgitation that is noted on his echocardiogram of 07/12/2019. I cannot feel his PMI. Abdomen soft, nontender. Bowel sounds are positive. There is no hepatomegaly. No costovertebral angle (CVA) tenderness. Extremities show no pretibial edema. No calf tenderness. No differential swelling of the upper extremities. Skin is warm, dry and perfused without cyanosis or mottling, including that of the nail beds and knees. Neck is supple. There is no jugular venous distention. No subcutaneous emphysema. Trachea is midline. Mouth shows his mucous membranes to be pink and moist. Lips and commissures are without lesions. There is no thrush. Eyes show his pupils to be equal and reactive. Extraocular movements are intact. Sclerae nonicteric. Neurologic shows II-XII intact along with gross motor and gross sensation intact. Gait is not tested. Psychiatric shows him to be awake, alert, and conversational. His most recent laboratories done today shows a white count of 5.3 with a hemoglobin and hematocrit of 9.5 and 29.7 and a platelet count of 208. Differential shows 73% neutrophils, 8% lymphocytes, and 15% monocytes. There are no immature forms and no toxic granulations. His chemistries today show a sodium of 149 with a BUN and creatinine of 52 and 1.95 and a glucose of 110, calcium of 7.7 with a magnesium of 2.0. His chest x-ray today shows a pleural effusion which is unchanged from 06/09/2019 when he was [facility]. CT scan shows the pleural effusion which extends all the way superiorly. However it does look to be connected and is drainable from the placing an inferior catheter. He may need a tPA pleural lysis to relieve the locations depending upon what the post procedure chest x-ray looks like. I am not at all keen on placing a PleurX catheter even though this is now his fourth time around as I have grave doubts that he can actually take care of the PleurX catheter given his alcoholic history. Furthermore I am even more resistant to undertake a talc pleurodesis in someone this old as the severe inflammatory response could end with a mortality. I will be content, therefore, to place a pigtail catheter and again to completely drain him. We will hold his Eliquis today and ask x-ray to place the pigtail catheter under fluoroscopic control tomorrow.
--- NOTE | 2019-07-17 12:42 | IPN ---
DATE OF SERVICE: 07/17/2019 Mr. Medrano is seen this morning on his bedside. He is laying in the bed comfortably and denies any new issues. He is still very weak and feels discouraged. He has a large right-sided pleural effusion and had a CT scan of the chest done this morning which did confirm a large loculated right-sided pleural effusion and a small one on the left. The patient has been treated for endocarditis and is still on cephazolin 1 gram every 12 hours. He has been given 2 units of packed RBCs during last 2 days due to worsening anemia. On physical examination, temperature 97.5 degrees Fahrenheit, heart rate 98 per minute and respiratory rate 18 per minute. Blood pressure 100/60 mmHg and oxygen saturation 97%. Intake and output records are probably inaccurate from yesterday and his weight is up to 75.5 kg. His neck veins are still about 12-13 cm above the sternal angle. Head is atraumatic and there is no oral thrush or ulcers. Heart sounds are regular with systolic murmur grade 2/6. Lungs reveal diminished breath sounds at right lower half. Abdomen: Soft and nontender. Bowel sounds normal. Extremities: Without any cyanosis or clubbing. Neurologically, he is awake, alert and oriented x3. Today's labs show hemoglobin up to 9.5 and hematocrit 29.7. WBC count is 5.3. Sodium is 149, potassium 3.7, CO2 25, BUN 52 and creatinine 1.95. Calcium level 7.7 and magnesium 2.0. PROBLEMS: 1. Acute renal failure superimposed on chronic kidney disease. Kidney function has improved significantly since admission. At present, he does not have any uremic symptoms and we will continue to monitor his kidney function closely. 2. Hypernatremia. His sodium level is gradually getting worse even though he has not received any diuretic for the last 24 hours. We will recheck his electrolytes tomorrow. He is on moderate fluid restriction due to congestive heart failure. 3. Congestive heart failure and pleural effusion. The patient seems to have slight decompensation of volume status with elevated neck veins, but he also has a loculated pleural effusion on the right side which probably needs drained either with thoracentesis or with a chest tube. I will defer to the primary physician and probably we should get a thoracic surgery consult. 4. Hyponatremia. Potassium level has improved with supplement. 5. Anemia. His anemia has also improved with transfusion. 6. Generalized weakness and deconditioning. Mostly, this is multifactorial and likely to improve once his medical condition gets optimized.
[2019-07-17 16:00] VITALS: BP 137/70
[2019-07-17 20:00] VITALS: BP 129/77
[2019-07-17] MEDS: allopurinoL 300 MG TAB PO SCH (20:09)
[2019-07-17] MEDS: traZODone 50 MG TAB PO SCH (20:09)
[2019-07-17] MEDS: atenoloL 50 MG TAB PO SCH (20:11)
[2019-07-18] VITALS: BP 135/87
[2019-07-18] MEDS: ceFAZolin SOD 1 GM in D5W MINI-BAG PLUS 50 ML IV SCH ×2 (00:27→13:42)
[2019-07-18 04:00] VITALS: BP 136/84
[2019-07-18] MEDS: SODIUM CHLORIDE 0.9% INJ 10 ML SYR IV SCH ×2 (05:06→17:58)
[2019-07-18 06:12] LABS: BASO % 0.8 % (0.0-1.0); EOS # 0.1 10^3/uL (0.0-0.5); EOS % 1.9 % (0.0-3.0); HEMATOCRIT 30.6 % (42.0-52.0); HEMOGLOBIN 9.6 g/dl (13.5-17.5); LYMPH # 0.5 10^3/uL (1.5-5.0); LYMPH % 9.1 % (24.0-44.0); MEAN CORPUSCULAR HEMOGLOBIN 32.9 pg (27.0-33.0); MEAN CORPUSCULAR HGB CONC 31.4 g/dl (32.0-36.5); MEAN CORPUSCULAR VOLUME 104.8 fl (80.0-96.0); MONO # 0.7 10^3/uL (0.0-0.8); MONO % 12.3 % (0.0-5.0); NEUTROPHILS # 3.9 10^3/uL (1.5-8.5); NEUTROPHILS % 74.4 % (36.0-66.0); PLATELET COUNT, AUTOMATED 197 10^3/uL (150-450); RED BLOOD COUNT 2.92 10^6/uL (4.30-6.10); WHITE BLOOD COUNT 5.3 10^3/uL (4.0-10.0)
[2019-07-18 06:35] LABS: CREATININE FOR GFR 1.73 MG/DL (0.70-1.30); GLOMERULAR FILTRATION RATE 40.2 (>35); MAGNESIUM LEVEL 2.1 MG/DL (1.8-2.4); POTASSIUM SERUM 3.7 MEQ/L (3.5-5.1)
[2019-07-18 08:00] VITALS: BP 138/80
[2019-07-18] MEDS: DOCUSATE SODIUM 100 MG CAP PO SCH ×2 (08:49→21:16)
[2019-07-18] MEDS: OMEPRAZOLE 20 MG CAP PO SCH (08:49)
[2019-07-18] MEDS: HYDROCORTISONE 1% CREAM 30 GM TOP SCH (08:53)
--- NOTE | 2019-07-18 10:54 | IPN ---
DATE OF VISIT: 07/18/2019 Mr. Medrano is seen this morning on his bedside. He is sitting in the chair today and feels about the same. He tells me that he is scheduled for a right thoracentesis later today. He denies any nausea or vomiting but remains weak. She has no fever or chills. PHYSICAL EXAMINATION: Temperature 97.3 degrees Fahrenheit, heart rate 94 per minute and respiratory rate 18 per minute. Blood pressure 138/80 mmHg and oxygen saturation 97% on room air. Head is atraumatic. Neck supple and jugular venous distention (JVD) still mildly elevated even sitting upright. Heart sounds are irregular in rhythm. Lungs have diminished breath sounds at right lower half. Abdomen soft and nontender and bowel sounds are normal. Extremities without any cyanosis or clubbing. Neurologically he is awake, alert and at his baseline mentation. Today's labs show WBC count 5.3, hemoglobin 9.6 and hematocrit 30.6. Sodium 150, potassium 3.7, CO2 25, BUN 52 and creatinine 1.73. PROBLEMS: 1. Acute renal failure superimposed on chronic kidney disease. Kidney function continues to improve and he has no uremic symptoms whatsoever. At present we will continue to monitor. 2. Hypernatremia. The patient has not received any diuretic for almost 72 hours. His sodium level continues to gradually increase. I am going to give him 1 liter of D5W today in order to try to correct his hypernatremia before it gets worse. 3. Right pleural effusion. The patient has a loculated right pleural effusion and needs to have thoracentesis. I do not feel that diuresis is likely to help with that. 4. Congestive heart failure. He does have a history of congestive heart failure, but clinically does not look decompensated. Am going to give him 1 liter of D5W in view of hypernatremia and we can also use a small dose of diuretic if needed.
[2019-07-18] MEDS ORDERED: KCL 20MEQ IN D5W 1000ML 1,000 ML IV SCH (11:00)
[2019-07-18] MEDS: FLUCONAZOLE 100 MG TAB PO SCH (11:07)
[2019-07-18 12:00] VITALS: BP 130/86
[2019-07-18 12:45] LABS: APPEARANCE, BODY FLUID CLOUDY (CLEAR); PLEURAL FL COLOR ORANGE (COLORLESS); SOURCE, BODY FLUID PLEURAL
[2019-07-18 12:54] LABS: PH BODY FLUID 7.605 UNITS (NOT ESTABLISHED); SOURCE, BODY FLUID pH PLEURAL
[2019-07-18 13:03] LABS: AMYLASE, BODY FLUID 103 U/L (NOT ESTABLISHED); CHOLESTEROL, BODY FLUID < 50 MG/DL (NOT ESTABLISHED); LDH, BODY FLUID 122 U/L (NOT ESTABLISHED); SOURCE, BODY FLUID ALBUMIN PLEURAL; SOURCE, BODY FLUID AMYLASE PLEURAL; SOURCE, BODY FLUID CHOL PLEURAL; SOURCE, BODY FLUID GLUCOSE PLEURAL; SOURCE, BODY FLUID LDH PLEURAL; SOURCE, BODY FLUID TOT PROTEIN PLEURAL; SOURCE, BODY FLUID TRIG PLEURAL; TOTAL PROTEIN, BODY FLUID 1.9 G/DL (NOT ESTABLISHED); TRIGLYCERIDE, BODY FLUID 21 MG/DL (NOT ESTABLISHED)
--- NOTE | 2019-07-18 13:52 | REP ---
CHEST X-RAY: TWO VIEWS. HISTORY: Post chest tube insertion. Comparison chest x-ray: July 15, 2019. FINDINGS: A bipolar pacemaker remains in the right heart via the left side. A right-sided PICC line is seen terminating in the expected location of the superior vena cava. There are surgical clips in the right neck soft tissues. There is evidence of subpulmonic pleural effusion on the left with blunting of the left posterior and slight blunting of the left lateral pleural angles. This is unchanged. On the right there is a small quantity of pleural air at the right base. There is blunting of the right lateral and right posterior pleural angle indicating small right pleural effusion as well. There is some fissural thickening in the minor fissure. IMPRESSION: Small quantity of pleural air is seen at the right base. Right pleural effusion much improved from July 17, 2019 CT study. Small right pleural effusion. Subpulmonic effusion noted on the left. Electronically Signed by Hollis Weems MD 07/18/2019 02:56 P
--- NOTE | 2019-07-18 15:55 | IPNPDOC ---
Date Seen The patient was seen on 07/18/19. Progress Note SUBJECTIVE: Patient states that he feels fine, he is SOB but he had been SOB for awhile. He does not complain of any pain or discomfort. Plan for pigtail placement today. OBJECTIVE PHYSICAL EXAMINATION: VITAL SIGNS: Please see below. General: Alert, elderly Eyes: Normal sclera, EOMI HENT: Atraumatic Cardiovascular: Normal rate, normal rhythm. Pulmonary: Decrease breath sounds R. base GI: Soft, nontender, nondistended Skin: Warm and dry, multiple age spots and moles on face Neuro: CN grossly intact. No focal deficits. Strengths equal b/l. Psych: oriented x 3 LABORATORY DATA, IMAGING STUDIES, MICROBIOLOGY: Please see below. DVT prophylaxis ordered?: Eliquis held at this time for procedure ASSESSMENT AND PLAN: 1. R. sided pleural effusion recurrence - hx prior thoracentesis x2: August 2018 and May 2019 (w/ PTX). - Cardiothoracic surgery following. Due to patient's risk factors, opt to place pigtail catheter for drainage under fluoro. - Continue to monitor respiratory status. 2. Hypernatremia - Gradual worsening. Diuretic has been held for several days. - To get 1L of D5W per nephro. Continue to monitor daily BMPs. 3. YUVAL on CKD - Improving daily. Diuretic had been held. - Continue to monitor kidney function. 4. Chronic HFpEF - Diuretic held. Does not appear to have edema but does have pleural effusion. - Continue to monitor volume status. 5. Hx MSSA endocarditis - c/w IV Ancef. Continue through 07/21. 6. Atrial Fibrillation - Rate controlled. Eliquis held at this time for pigtail catheter placement. DISPOSITION: Placement needed. If possible ARU/Rehab post medical stabilization. VS, I&O, 24H, [place] Vital Signs/I&O Vital Signs Date Time Temp Pulse Resp B/P (MAP) Pulse Ox O2 Delivery O2 Flow Rate FiO2 07/18/19 12:30 96 16 98 Room Air 07/18/19 12:00 97.3 130/86 (101) I&O- Last 24 Hours up to 6 AM 07/18/19 06:00 Intake Total 290 ml Output Total 675 ml Balance -385 ml Laboratory Data 24H LABS Laboratory Tests 2 07/18/19 05:59: Immature Granulocyte % (Auto) 1.5, Neutrophils (%) (Auto) 74.4H, Lymphocytes (%) (Auto) 9.1L, Monocytes (%) (Auto) 12.3H, Eosinophils (%) (Auto) 1.9, Basophils (%) (Auto) 0.8, Neutrophils # (Auto) 3.9, Lymphocytes # (Auto) 0.5L, Monocytes # (Auto) 0.7, Eosinophils # (Auto) 0.1, Basophils # (Auto) 0.0, Nucleated Red Blood Cells % (auto) 0.4H, Anion Gap 5L, Glomerular Filtration Rate 40.2, Calcium Level 8.0L, Magnesium Level 2.1, Lactate Dehydrogenase 278H 07/18/19 12:08: Body Fluid pH 7.605, Body Fluid pH Source PLEURAL, Body Fluid WBC (Auto) 235H, Body Fluid RBC (Auto) 13, Body Fluid Mononuclear Cells % Auto 94.4H, Fluid Polymorphonuclear Cell % Auto 5.6H, Body Fluid Glucose Source PLEURAL, Body Fluid Glucose 139, Body Fluid Protein Source PLEURAL, Body Fluid Total Protein 1.9, Body Fluid Albumin Source PLEURAL, Body Fluid Albumin 0.6, Body Fluid LDH Source PLEURAL, Body Fluid Lactate Dehydrogenase 122, Body Fluid Amylase Source PLEURAL, Body Fluid Amylase 103, Body Fluid Cholesterol < 50, Body Fluid Ch olesterol Source PLEURAL, Body Fluid Triglyceride Source PLEURAL, Body Fluid Triglycerides 21, Pleural Fluid Source PLEURAL, Pleural Fluid Color ORANGE, Pleural Fluid Appearance CLOUDY CBC/BMP Laboratory Tests 07/18/19 05:59 Microbiology Microbiology 07/18/19 Acid Fast Stain, Received Pending 07/18/19 Mycobacterial Culture, Received Pending 07/18/19 Fungal Smear, Received Pending 07/18/19 Fungal Culture, Received Pending 07/18/19 Gram Stain, Received Pending 07/18/19 Anaerobic Culture, Received Pending 07/18/19 Body Fluid Culture, Received Pending 07/11/19 Urine Culture - Final, Complete Yeast Like Organism 07/11/19 Blood Culture - Final, Complete NO GROWTH AFTER 5 DAYS 07/11/19 Blood Culture - Final, Complete NO GROWTH AFTER 5 DAYS HANK HAGEN MD Jul 18, 2019 15:55
[2019-07-18 16:00] VITALS: BP 126/80
--- NOTE | 2019-07-18 17:44 | REP ---
ULTRASOUND-GUIDED RIGHT THORACENTESIS WITH CATHETER PLACEMENT The procedure was performed under the direct supervision of Dr. Dias. The risks and benefits of the procedure were explained to the patient and informed consent was obtained. The right pleural effusion was localized using ultrasound guidance. Skin was prepped and draped in a sterile fashion. 1% lidocaine was used as a local anesthetic. Using ultrasound guidance a 10 [place] Skater APDL catheter was inserted using trocar technique. 1 liter of low viscosity red colored fluid was withdrawn and sent to the lab for analysis. The catheter was affixed to the skin and a sterile dressing was applied. The catheter was connected to a Pleur-Evac. The patient tolerated the procedure well and there were no immediate complications. After the appropriate amount of monitored convalescence the patient was discharged from the department. Electronically Signed by JESSE Fung 07/18/2019 04:02 P Electronically Signed by Neel Dias MD 07/18/2019 05:36 P
[2019-07-18] MEDS ORDERED: PERCOCET 5MG/325MG TAB PO PRN (18:45)
[2019-07-18 20:00] VITALS: BP 126/82
--- NOTE | 2019-07-18 20:03 | IPN ---
DATE: 07/18/2019 Mr. Medrano is waiting to go down for his pigtail catheter pleurocentesis. He is sitting in a chair; however, he does complain of being short of breath. His vital signs show a maximum temperature (T max) of 97.3 with a heart rate that ranges between 95 and 105 in atrial fibrillation with a respiratory rate of 18 to 16 without the use of accessory muscles who is 97 to 98% saturated on room air and whose blood pressure is ranging between 130/86 to 137/70. His intake and output over the past 24 hours has been reported as 290 in and 550 out for a negativity of 260 mL. He weighs 75.2 kg today compared to 75.5 kg yesterday. On physical examination, he has decreased breath sounds in the right lower hemithorax with a dull percussion note. He also has inspiratory rales on either side. Cardiac exam is without murmurs, clicks, gallops or rubs. I cannot feel his point of maximum impulse (PMI). S1, S2 are normal. Abdomen is soft and nontender. Bowel sounds are positive. There is no hepatomegaly. No costovertebral angle (CVA) tenderness. Extremities show trace pretibial edema. No calf tenderness. No differential swelling of the upper extremities. Skin is warm, dry and perfused without cyanosis or mottling, including that of the nail beds and the knees. Neck is supple. There is no jugular venous distention, no subcutaneous emphysema. Trachea is midline. Mouth shows his mucous membranes to be pink and moist. Lips and commissures without lesions. There is no thrush. Eyes show his pupils to be equal and reactive. Extraocular motions intact. Sclerae anicteric. Neurologic shows II-XII intact along with gross motor and gross sensation intact. Gait is not tested. Psychiatric shows him to be awake and alert, oriented times three with appropriate mood and affect and conversational. His white count today is 5.3 with a hemoglobin and hematocrit of 9.6 and 30.6 respectively. Platelet count is 197 and stable and differential shows 74% neutrophils, 9% lymphocytes and 12% monocytes. There are no immature forms. No toxic granulations. His sodium today is 150, which continues to rise over the last 5 days. BUN and creatinine are 52 and 1.73 respectively. Remainder of his electrolytes are normal except for an increased chloride of 120. Glucose is 110 with a calcium of 8.0 and a magnesium of 2.1. I do not see where he is on any diuretics at this point in time. His chest x-ray is pending today. IMPRESSION: 1. Recurrent right pleural effusion, previously drained, now recurred with small loculations. 2. Right heart failure. 3. Atrial fibrillation. 4. Hypertension. 5. Diastolic heart failure. 6. Chronic renal disease. 7. Sick sinus syndrome, status post pacemaker. 8. Peripheral vascular disease. 9. Cerebrovascular disease. 10. Past history of prostate cancer with radiation therapy. 11. History of renal stones. 12. Cirrhosis based on the appearance of his liver on CT. 13. Alcohol abuse and alcohol withdrawal. PLAN AND DISCUSSION: He is awaiting his pigtail catheter pleurocentesis. Will connect it to a Pleur-evac at minus 20 and will do all the requisite testing, including hematologies, cytologies, bacteriologies, and chemistries. As noted in yesterday's note, I am reticent to do anything definitive with him. A PleurX catheter could be placed, but I am not sure whether he could actually take care of it. He is too old and frail with multiple medical problems to undertake a talc pleurodesis with its attendant inflammatory response.
[2019-07-18] MEDS: atenoloL 50 MG TAB PO SCH (21:00)
[2019-07-18] MEDS: allopurinoL 300 MG TAB PO SCH (21:16)
[2019-07-18] MEDS: traZODone 50 MG TAB PO SCH (21:16)
[2019-07-18] MEDS: APIXABAN 2.5 MG TAB (ELIQUIS) PO SCH (21:16)
[2019-07-18] MEDS: PERCOCET 5MG/325MG TAB PO PRN (21:18)
[2019-07-19] VITALS: BP 122/78
[2019-07-19] MEDS: ceFAZolin SOD 1 GM in D5W MINI-BAG PLUS 50 ML IV SCH ×2 (00:37→13:37)
[2019-07-19] MEDS: SODIUM CHLORIDE 0.9% INJ 10 ML SYR IV SCH ×2 (03:28→19:37)
[2019-07-19 04:00] VITALS: BP 131/75
[2019-07-19 05:44] LABS: BASO % 0.5 % (0.0-1.0); EOS # 0.1 10^3/uL (0.0-0.5); EOS % 2.2 % (0.0-3.0); HEMATOCRIT 32.3 % (42.0-52.0); LYMPH # 0.5 10^3/uL (1.5-5.0); LYMPH % 12.4 % (24.0-44.0); MEAN CORPUSCULAR VOLUME 106.6 fl (80.0-96.0); MONO # 0.6 10^3/uL (0.0-0.8); MONO % 13.3 % (0.0-5.0); NEUTROPHILS # 2.9 10^3/uL (1.5-8.5); NEUTROPHILS % 70.4 % (36.0-66.0); PLATELET COUNT, AUTOMATED 186 10^3/uL (150-450); RED BLOOD COUNT 3.03 10^6/uL (4.30-6.10); WHITE BLOOD COUNT 4.1 10^3/uL (4.0-10.0)
[2019-07-19 05:52] LABS: CALCIUM LEVEL 7.9 MG/DL (8.8-10.2); CREATININE FOR GFR 1.66 MG/DL (0.70-1.30); GLOMERULAR FILTRATION RATE 42.1 (>35); POTASSIUM SERUM 3.8 MEQ/L (3.5-5.1)
[2019-07-19 08:00] VITALS: BP 127/77
--- NOTE | 2019-07-19 08:27 | REP ---
Chest x-ray: Two views. History: Chest tube. Comparison chest x-ray: July 18, 2019 and and July 15, 2019. Findings: The pigtail catheter is again seen in the right lower lateral pleural space posteriorly. There is improvement in the right pleural effusion. A tiny bubble of air is seen inferolaterally. There is a new mixed alveolar interstitial infiltrate in the right lung base. This may be reinflation pulmonary edema localized to the right base or interval pneumonia. Pacemaker and right-sided PICC lines remain in place. The left hemithorax is unchanged. Impression: New infiltrate in the reinflated right lung base question reinflation pulmonary edema versus interval pneumonia. Improved right pleural effusion. Drainage catheter in place. Electronically Signed by Hollis Weems MD 07/19/2019 08:18 A
[2019-07-19] MEDS: DOCUSATE SODIUM 100 MG CAP PO SCH ×2 (09:34→22:01)
[2019-07-19] MEDS: OMEPRAZOLE 20 MG CAP PO SCH (09:34)
[2019-07-19] MEDS: FLUCONAZOLE 100 MG TAB PO SCH (09:34)
[2019-07-19] MEDS: APIXABAN 2.5 MG TAB (ELIQUIS) PO SCH ×2 (09:34→22:01)
[2019-07-19] MEDS: HYDROCORTISONE 1% CREAM 30 GM TOP SCH (09:35)
[2019-07-19] MEDS: PERCOCET 5MG/325MG TAB PO PRN (09:41)
[2019-07-19 12:00] VITALS: BP_SYST 100; BP_SYST 94; BP_DIAS 61; BP_DIAS 68
--- NOTE | 2019-07-19 12:03 | IPN ---
DATE OF SERVICE: 07/19/2019 Mr. Medrano is breathing so much better today. He is sitting up in bed and talking. I have had a conversation with him about his alcohol intake and problem. He denies that he has an alcohol problem, stating that he only has about one shot of Vodka every week. His vital signs show a maximum temperature (T max) of 98.0 with a heart rate that ranges between 95 and 88 in atrial fibrillation with a respiratory rate of 16 to 20 without the use of accessory muscles who is 98% saturated now on room air and whose blood pressure is ranging between 131/75 to 122/77. His intake and output over the past 24 hours has been reported as 940 in and 1635 out for a negativity of 700 mL. He has put out 1260 mL from the chest tube and 100 mL in the last 10 hours. Weight is pending today. On physical examination, he has bilateral wheezing during inspiration on both sides. It is fine wheeze. He also has inspiratory crackles on either side, more on the right than the left. Cardiac exam shows an irregular rate and rhythm without murmurs, clicks, gallops or rubs. I cannot feel his point of maximum impulse (PMI). S1, S2 are normal. Abdomen is soft and nontender. Bowel sounds are positive. There is no hepatomegaly. No costovertebral angle (CVA) tenderness. Extremities show no pretibial edema. No calf tenderness. No differential swelling of the upper extremities. Skin is warm, dry and perfused without cyanosis or mottling, including that of the nail beds and the knees. Neck is supple. There is no jugular venous distention. No subcutaneous emphysema. Trachea is midline. Mouth shows his mucous membranes to be pink and moist. Lips and commissures without lesions. There is no thrush. Eyes show his pupils to be equal and reactive. Extraocular motions intact. Sclerae anicteric. Neurologic shows II-XII intact along with gross motor and gross sensation intact. Gait is not tested. Psychiatric shows him to be awake and alert, oriented times three with appropriate mood and affect and conversational. His white count today is 4.1 with a hemoglobin and hematocrit of 10.0 and 32.3, slightly improved from 9.6 and 30.6 yesterday. Platelet count is 186 and stable. Differential shows 70% neutrophils, 17% lymphocytes and 13% monocytes. There are no immature forms and no toxic granulations. Electrolytes show an improvement in his sodium down to 147 from 150. BUN and creatinine are 45 and 1.66, also improved from 52 and 1.73. Glucose is 113 with a calcium of 7.6 and magnesium of 2.0. Fluid analysis yesterday shows a pH of 7.60, with a glucose of 139, and LDH of 122, with a corresponding serum LDH of 278. He has 235 white cells of which 94% are mononuclear lymphocytes and 5% are neutrophils. This looks to be a transudative pleural effusion. His chest x-ray today shows his lung fully expanded to the chest wall. He has a post compressive or infiltrative pattern in the right lower hemithorax. Costophrenic angle is still slightly blunted on the right side. He has a small amount of fluid in the fissure. His lateral chest x-ray also shows some residual fluid in the costophrenic angle. IMPRESSION: 1. Recurrent right pleural effusion, now drained with a pigtail catheter. 2. Right heart failure. 3. Atrial fibrillation. 4. Hypertension. 5. Diastolic heart failure. 6. Chronic renal disease. 7. Sick sinus syndrome, status post pacemaker. 8. Peripheral vascular disease. 9. Cerebrovascular disease. 10. Past history of prostate cancer with radiation therapy. 11. History of renal stones. 12. Cirrhosis based on the appearance of his liver on CT. 13. Alcohol abuse and alcohol withdrawal. PLAN AND DISCUSSION: I have again in previous notes have discussed with medicine to place a PleurX catheter in him. He tells me that he lives 500 feet from his nephew. I will get social services coordinator involved. Our only other option would be to intermittently drain him, which would probably be on a bimonthly basis. If we can get social and visiting nurse support to drain him that would be the best of all possible worlds.
[2019-07-19] MEDS: SODIUM CHLORIDE 0.9% INJ 10 ML SYR IV PRN (13:38)
--- NOTE | 2019-07-19 14:02 | IPN ---
DATE: 07/19/2019 Mr. Medrano is seen this morning on his bedside. He had a thoracentesis yesterday and also had a right-sided chest tube placed. He is feeling better, a significant amount of fluid has been drained both with initial thoracentesis and then chest tube. The patient denies any dyspnea, chest pain, nausea or vomiting. PHYSICAL EXAMINATION Temperature 98.2 degrees Fahrenheit, heart rate 108 per minute and respiratory rate 18 per minute. Blood pressure 127/77 mmHg and oxygen saturation 98% on room air. His head is atraumatic. Neck: Supple and jugular venous distention (JVD) not abnormally elevated. He is sitting in the chair right now. Heart sounds are tachycardiac and lungs have bibasilar rales more prominent on the right side. His breath sounds have improved significantly on the right side now. Extremities have no cyanosis or clubbing. Neurologically, he is at his baseline mentation. Today's labs show WBC count 4.1, hemoglobin 10.0 and hematocrit 32.3. Sodium 147, potassium 3.8, CO2 27, BUN 45 and creatinine 1.66. Calcium level is 7.9 and magnesium 2.0. PROBLEMS: 1. Acute renal failure superimposed on chronic kidney disease. Kidney function has improved significantly since admission and continues to improve gradually. We will continue to monitor closely. 2. Hypernatremia. Yesterday his sodium level was 150 without any diuretic use. He was given 1 liter of D5W and sodium level has improved to 147 today. I have encouraged the patient to increase his oral intake of fluids and we will recheck his electrolytes tomorrow morning. If his hypernatremia and does not improve then we will consider giving him further IV fluid. 3. Pleural effusions. The patient had a large right-sided pleural effusion and now has a chest tube in place. He is feeling much better. 4. Anemia. At present his anemia is stable since he was transfused and no intervention is needed now. He will continue with Aranesp 100 mcg once a week.
--- NOTE | 2019-07-19 15:22 | IPNPDOC ---
Date Seen The patient was seen on 07/19/19. Progress Note SUBJECTIVE: Patient reports improvement in respiratory status. SOB had improved today. Chest tube placed yesterday, tolerated procedure well. 1.2L output from chest tube documented this AM. OBJECTIVE PHYSICAL EXAMINATION: VITAL SIGNS: Please see below. General: Alert, elderly Eyes: Normal sclera, EOMI HENT: Atraumatic Cardiovascular: Normal rate, irregular rhythm. Pulmonary: Decrease breath sound R. base with crackles on R. side both upper and lower lobes. GI: Soft, nontender, nondistended Skin: Warm and dry, multiple age spots and moles on face Neuro: CN grossly intact. No focal deficits. Strengths equal b/l. Psych: oriented x 3 LABORATORY DATA, IMAGING STUDIES, MICROBIOLOGY: Please see below. DVT prophylaxis ordered?: Eliquis held at this time for procedure ASSESSMENT AND PLAN: 1. R. sided pleural effusion recurrence - hx prior thoracentesis x2: August 2018 and May 2019 (w/ PTX). - Underwent thoracentesis with chest tube placement on this admission 07/17. R. s ided chest tube in place, cardiothoracic surgery following. - Continue to monitor respiratory status. - CTS note reviewed, favors PleurX catheter placement for intermittent drainage by visiting nurse vs. family, to discuss with social work. 2. Hypernatremia - Slight improvement from yesterday, Na 147 today post 1L of D5W. Diuretic has been held for several days. - Continue to monitor daily BMPs. Encouraged PO free fluid intake. - Consider additional IVF if Na does not improve. 3. YUVAL on CKD - Improving daily. Diuretic had been held. Nephrology also following. - Continue to monitor kidney function. 4. Chronic HFpEF - Diuretic held. Does not appear to have edema. - Continue to monitor volume status. 5. Hx MSSA endocarditis - c/w IV Ancef. Continue through 07/21. 6. Atrial Fibrillation - Rate controlled. On eliquis. DISPOSITION: Placement needed. If possible ARU/Rehab post medical stabilization. VS, I&O, 24H, Fishbone Vital Signs/I&O Vital Signs Date Time Temp Pulse Resp B/P (MAP) Pulse Ox O2 Delivery O2 Flow Rate FiO2 07/19/19 12:00 97.7 111 20 95 Room Air 07/19/19 08:00 127/77 (94) I&O- Last 24 Hours up to 6 AM 07/19/19 06:00 Intake Total 1360 ml Output Total 1560 ml Balance -200 ml Laboratory Data 24H LABS Laboratory Tests 2 07/19/19 05:09: Immature Granulocyte % (Auto) 1.2, Neutrophils (%) (Auto) 70.4H, Lymphocytes (%) (Auto) 12.4L, Monocytes (%) (Auto) 13.3H, Eosinophils (%) (Auto) 2.2, Basophils (%) (Auto) 0.5, Neutrophils # (Auto) 2.9, Lymphocytes # (Auto) 0.5L, Monocytes # (Auto) 0.6, Eosinophils # (Auto) 0.1, Basophils # (Auto) 0.0, Nucleated Red Blood Cells % (auto) 0.0, Anion Gap 4L, Glomerular Filtration Rate 42.1, Calcium Level 7.9L, Magnesium Level 2.0 CBC/BMP Laboratory Tests 07/19/19 05:09 Microbiology Microbiology 07/18/19 Acid Fast Stain, Received Pending 07/18/19 Mycobacterial Culture, Received Pending 07/18/19 Fungal Smear, Received Pending 07/18/19 Fungal Culture, Received Pending 07/18/19 Gram Stain - Final, Resulted 07/18/19 Anaerobic Culture, Resulted Pending 07/18/19 Body Fluid Culture, Received Pending 07/11/19 Urine Culture - Final, Complete Yeast Like Organism 07/11/19 Blood Culture - Final, Complete NO GROWTH AFTER 5 DAYS 07/11/19 Blood Culture - Final, Complete NO GROWTH AFTER 5 DAYS HANK HAGEN MD Jul 19, 2019 15:22
[2019-07-19 16:00] VITALS: BP 133/69
[2019-07-19 19:00] VITALS: BP 134/71
[2019-07-19] MEDS: atenoloL 50 MG TAB PO SCH (22:01)
[2019-07-19] MEDS: allopurinoL 300 MG TAB PO SCH (22:01)
[2019-07-19] MEDS: traZODone 50 MG TAB PO SCH (22:01)
[2019-07-20] VITALS: BP 128/82
[2019-07-20] MEDS: ceFAZolin SOD 1 GM in D5W MINI-BAG PLUS 50 ML IV SCH ×2 (01:40→13:28)
[2019-07-20] MEDS: SODIUM CHLORIDE 0.9% INJ 10 ML SYR IV PRN (02:25)
[2019-07-20 04:00] VITALS: BP 118/80
[2019-07-20 05:40] LABS: EOS # 0.1 10^3/uL (0.0-0.5); EOS % 2.5 % (0.0-3.0); HEMATOCRIT 32.4 % (42.0-52.0); HEMOGLOBIN 10.2 g/dl (13.5-17.5); LYMPH # 0.4 10^3/uL (1.5-5.0); LYMPH % 11.1 % (24.0-44.0); MEAN CORPUSCULAR HEMOGLOBIN 33.3 pg (27.0-33.0); MEAN CORPUSCULAR HGB CONC 31.5 g/dl (32.0-36.5); MEAN CORPUSCULAR VOLUME 105.9 fl (80.0-96.0); MONO # 0.6 10^3/uL (0.0-0.8); MONO % 14.9 % (0.0-5.0); NEUTROPHILS # 2.8 10^3/uL (1.5-8.5); NEUTROPHILS % 69.7 % (36.0-66.0); PLATELET COUNT, AUTOMATED 183 10^3/uL (150-450); RED BLOOD COUNT 3.06 10^6/uL (4.30-6.10)
[2019-07-20] MEDS: SODIUM CHLORIDE 0.9% INJ 10 ML SYR IV SCH ×2 (05:42→17:48)
[2019-07-20 06:08] LABS: CALCIUM LEVEL 7.9 MG/DL (8.8-10.2); CREATININE FOR GFR 1.6 MG/DL (0.70-1.30); POTASSIUM SERUM 4.1 MEQ/L (3.5-5.1)
[2019-07-20 08:00] VITALS: BP 130/83
[2019-07-20] MEDS: OMEPRAZOLE 20 MG CAP PO SCH (08:24)
[2019-07-20] MEDS: FLUCONAZOLE 100 MG TAB PO SCH (08:24)
[2019-07-20] MEDS: DOCUSATE SODIUM 100 MG CAP PO SCH ×2 (08:25→21:29)
[2019-07-20] MEDS: APIXABAN 2.5 MG TAB (ELIQUIS) PO SCH ×2 (08:25→21:29)
[2019-07-20] MEDS: VITAMIN D 50,000 UNITS CAPSULE (ERGOCALCIFEROL 1.25MG) PO SCH (08:25)
[2019-07-20] MEDS: HYDROCORTISONE 1% CREAM 30 GM TOP SCH (08:25)
--- NOTE | 2019-07-20 08:28 | REP ---
Clinical: Pleural effusion. Technique: PA and lateral. Comparison: 07/19/2019. Findings: The pigtail catheter at the right lung base is suggested at the very inferior margin of the radiograph. Small right apical pneumothorax again noted. Right lower lobe infiltrate is again identified and similar to prior examination. Small residual right pleural effusion cannot be excluded. Pleuroparenchymal changes at the left base remain stable. Mediastinum and cardiac silhouette stable. Right-sided PICC line with tip in the SVC again noted. Impression: 1. Small right apical pneumothorax unchanged. 2. Right lower lobe infiltrate and subtle left basilar pleuroparenchymal changes similar to prior examination. Electronically Signed by Mariusz Mackenzie MD 07/20/2019 08:20 A
[2019-07-20] MEDS: DARBEPOETIN 100 MCG/0.5 ML *NON-DIALYSIS* SYRINGE (J0881) SC SCH (08:57)
[2019-07-20] MEDS: D5W 1,000 ML IV SCH (10:49)
[2019-07-20 12:00] VITALS: BP 120/72
--- NOTE | 2019-07-20 12:06 | IPNPDOC ---
Date Seen The patient was seen on 07/20/19. Progress Note SUBJECTIVE: Patient denies significant SOB, complains of soreness in the back over site of chest tube. Saturating well on RA. 450 cc drainage noted from chest tube. OBJECTIVE PHYSICAL EXAMINATION: VITAL SIGNS: Please see below. General: Alert, elderly Eyes: Normal sclera, EOMI HENT: Atraumatic Cardiovascular: Normal rate, irregular rhythm. Pulmonary: Diffuse crackles R. side, chest tube in place. GI: Soft, nontender, nondistended Skin: Warm and dry, multiple age spots and moles on face Neuro: CN grossly intact. No focal deficits. Strengths equal b/l. Psych: oriented x 3 LABORATORY DATA, IMAGING STUDIES, MICROBIOLOGY: Please see below. DVT prophylaxis ordered?: Eliquis held at this time for procedure ASSESSMENT AND PLAN: 1. R. sided pleural effusion recurrence - hx prior thoracentesis x2: August 2018 and May 2019 (w/ PTX). - Underwent thoracentesis with chest tube placement on this admission 07/17. R. sided chest tube in place, cardiothoracic surgery following. - Continue to monitor respiratory status. - CTS note reviewed, favors PleurX catheter placement for intermittent drainage by visiting nurse vs. family, to discuss with social work. 2. Hypernatremia - Persistent, discussed with nephrology. To give D5W at very low rate for Na correction. Diuretic has been held for several days. - Continue to monitor daily BMPs. Encouraged PO free fluid intake. 3. YUVAL on CKD - Improving. Diuretic had been held. Nephrology also following. - Continue to monitor kidney function. 4. Chronic HFpEF - Diuretic held. Does not appear to have edema. - Continue to monitor volume status. 5. Hx MSSA endocarditis - c/w IV Ancef. Continue through 07/21. 6. Atrial Fibrillation - Rate controlled. On eliquis. DISPOSITION: Placement needed. If possible ARU/Rehab post medical stabilization. VS, I&O, 24H, [facility] Vital Signs/I&O Vital Signs Date Time Temp Pulse Resp B/P (MAP) Pulse Ox O2 Delivery O2 Flow Rate FiO2 07/20/19 08:00 98.5 94 18 130/83 (99) 97 Room Air I&O- Last 24 Hours up to 6 AM 07/20/19 06:00 Intake Total 958 ml Output Total 900 ml Balance 58 ml Laboratory Data 24H LABS Laboratory Tests 2 07/20/19 05:18: Immature Granulocyte % (Auto) 0.8, Neutrophils (%) (Auto) 69.7H, Lymphocytes (%) (Auto) 11.1L, Monocytes (%) (Auto) 14.9H, Eosinophils (%) (Auto) 2.5, Basophils (%) (Auto) 1.0, Neutrophils # (Auto) 2.8, Lymphocytes # (Auto) 0.4L, Monocytes # (Auto) 0.6, Eosinophils # (Auto) 0.1, Basophils # (Auto) 0.0, Nucleated Red Blood Cells % (auto) 0.0, Anion Gap 5L, Glomerular Filtration Rate 44.0, Calcium Level 7.9L, Magnesium Level 2.0 CBC/BMP Laboratory Tests 07/20/19 05:18 Microbiology Microbiology 07/18/19 Acid Fast Stain, Received Pending 07/18/19 Mycobacterial Culture, Received Pending 07/18/19 Fungal Smear, Received Pending 07/18/19 Fungal Culture, Received Pending 07/18/19 Gram Stain - Final, Complete 07/18/19 Anaerobic Culture - Final, Complete 07/18/19 Body Fluid Culture - Final, Complete 07/11/19 Urine Culture - Final, Complete Yeast Like Organism 07/11/19 Blood Culture - Final, Complete NO GROWTH AFTER 5 DAYS 07/11/19 Blood Culture - Final, Complete NO GROWTH AFTER 5 DAYS HANK HAGEN MD Jul 20, 2019 12:06
--- NOTE | 2019-07-20 13:15 | IPN ---
DATE: 07/20/2019 Mr. Medrano is still continuing to drain large amounts from his chest catheter. It looks as though he is going to have to undergo placement at a long-term rehab center. That actually makes the plan a little easier with regard to placing a PleurX catheter. His vital signs show a maximum temperature (T max) of 98.5 with a heart rate that ranges between 94 and 111, in atrial fibrillation, with a respiratory rate of 18 to 20 without the use of accessory muscles who is 95% saturated on room air and whose blood pressure is ranging between 128/82 to 118/80. Intake and output over the past 24 hours has been recorded as 1428 in and 950 out for a positivity of 475 mL. His chest tube output has been 450 mL, and his weight today is 72.5 kg. On physical examination, he has bilateral crackles on either side, more on the right than the left. Percussion note is now full to the diaphragm. Cardiac exam is without murmurs, clicks, gallops or rubs. I cannot feel his point of maximum impulse (PMI). S1, S2 are normal. Abdomen is soft and nontender. Bowel sounds are positive. There is no hepatomegaly. No costovertebral angle tenderness. Extremities show no pretibial edema. No calf tenderness. No differential swelling of the upper extremities. Skin is warm, dry and perfused without cyanosis or mottling, including that of the nail beds and the knees. Neck is supple. There is no jugular venous distention, no subcutaneous emphysema. Trachea is midline. Mouth shows his mucous membranes to be pink and moist. Lips and commissures without lesions. There is no thrush. Eyes show his pupils to be equal and reactive. Extraocular motions intact. Sclerae nonicteric. Neurologic shows II-XII intact along with gross motor and gross sensation intact. Gait is not tested. Psychiatric shows him to be awake and alert, oriented times three with appropriate mood and affect and conversational. White count is 4.0 with a hemoglobin and hematocrit of 10.2 and 32.4. Platelet count is 183 and stable. Hemoglobin and hematocrit are stable and white count is stable. Differential shows 69% neutrophils, 11% lymphocytes, 14% monocytes. There are no immature forms. No toxic granulations. Sodium today is 148, slightly up from yesterday's of 147. BUN and creatinine are 42 and 1.5 with a glucose of 84 and a calcium of 7.9. Magnesium is 2.0. His chest x-ray today shows his lung fully expanded to the chest wall. Costophrenic angles are sharp. Chest tube catheter is in good place. There is a small apical air space on the PA film. IMPRESSION: 1. Recurrent right pleural effusion, now drained with a pigtail catheter. 2. Right heart failure. 3. Atrial fibrillation. 4. Hypertension. 5. Diastolic heart failure. 6. Chronic renal disease. 7. Sick sinus syndrome, status post pacemaker. 8. Peripheral vascular disease. 9. Cerebral vascular disease. 10. Prior history of prostate cancer with radiation therapy. 11. History of renal stones. 12. Cirrhosis based on the appearance of his liver on CT and alcohol abuse and alcohol withdrawal, resolved. PLAN AND DISCUSSION: I had asked Photographic Process Attendant to address the question of his care. Through the nursing staff, I have learned that he will probably be eligible for long-term care at a nursing facility. That, however, will not happen until July 30. For the time being, I will keep his pigtail catheter in and at an appropriate time, remove it and let the fluid reaccumulate and then place a PleurX catheter. I suspect I will do that early in the week, most likely Monday.
[2019-07-20 16:00] VITALS: BP 124/75
--- NOTE | 2019-07-20 19:32 | IPN ---
DATE: 07/20/2019 SUBJECTIVE: The patient was seen and examined at the bedside today morning. He is afebrile, hemodynamically stable. His renal function is improving. Creatinine is down to 1.6 now. He persistently has hypernatremia with a sodium of 148. The patient still has a catheter in the right pleural cavity. OBJECTIVE: Vital signs: Temperature is 97.1 degrees Fahrenheit, blood pressure 124/75, pulse is 92, respiratory of 18, saturating 94% on room air. Intake and output: Urine output recorded is 300 mL since overnight. Chest tube drainage yesterday was 450 mL. Weight in the bed scale is 72.5 kg. PHYSICAL EXAMINATION: GENERAL: The patient is awake, alert, oriented times two, sitting up in the bed in no apparent distress. HEAD AND NECK: Extraocular muscles intact. Pupils equally round and reactive to light. Mucous membranes are moist. Neck is supple. There is no jugular venous distention (JVD). CARDIOVASCULAR: S1, S2, regular rate. There is 2+ edema of the bilateral lower extremities. RESPIRATORY: Mildly decreased breath sounds on the right base. The patient has a catheter in the right-sided pleural cavity. ABDOMEN: Positive bowel sounds. Nontender. No organomegaly. GENITOURINARY: Bladder is not palpable. MUSCULOSKELETAL: No clubbing or cyanosis. Pulses are 2+. CENTRAL NERVOUS SYSTEM: No focal deficit. Power is 5/5 in bilateral upper extremities. LABORATORY REVIEW: CBC showed WBC of 4, hemoglobin 10.2, platelets are 183. BMP showed sodium 148, potassium 4.1, chloride 119, bicarbonate 25, BUN 42, creatinine is 1.60; it was 1.66 yesterday. Calcium 7.9, magnesium is 2. CURRENT INPATIENT MEDICATIONS: The patient's medications were all reviewed by me. He continues to been intravenous (IV) cephazolin. I have started the patient on D5W at 70 mL an hour for a total of 2 liters. No other change in the medications today as compared with yesterday. ASSESSMENT AND PLAN: 1. Acute renal failure. Patient's renal function continues to improve. Creatinine is down to 1.6. Okay to continue current antibiotic. 2. Hypernatremia. It is secondary to decrease free water intake. I have started the patient on D5W at 70 mL an hour for a total of 2 liters. 3. Pleural effusions. The patient had right-sided pleural effusion drained. He has a catheter in the right pleural cavity. Management is as per CT surgery.
[2019-07-20 20:00] VITALS: BP 129/83
[2019-07-20] MEDS: atenoloL 50 MG TAB PO SCH (21:00)
[2019-07-20] MEDS: traZODone 50 MG TAB PO SCH (21:29)
[2019-07-20] MEDS: allopurinoL 300 MG TAB PO SCH (21:29)
[2019-07-21] VITALS: BP_SYST 126; BP_SYST 138; BP_DIAS 62; BP_DIAS 77
[2019-07-21] MEDS: ceFAZolin SOD 1 GM in D5W MINI-BAG PLUS 50 ML IV SCH ×2 (00:24→12:38)
[2019-07-21] MEDS: D5W 1,000 ML IV SCH (00:24)
[2019-07-21 04:00] VITALS: BP 125/75
[2019-07-21] MEDS: SODIUM CHLORIDE 0.9% INJ 10 ML SYR IV SCH ×2 (05:24→17:01)
[2019-07-21 05:31] LABS: HEMATOCRIT 30.8 % (42.0-52.0); HEMOGLOBIN 9.6 g/dl (13.5-17.5); MEAN CORPUSCULAR HEMOGLOBIN 33.1 pg (27.0-33.0); MEAN CORPUSCULAR HGB CONC 31.2 g/dl (32.0-36.5); MEAN CORPUSCULAR VOLUME 106.2 fl (80.0-96.0); PLATELET COUNT, AUTOMATED 187 10^3/uL (150-450); WHITE BLOOD COUNT 4.7 10^3/uL (4.0-10.0)
[2019-07-21 06:01] LABS: CALCIUM LEVEL 7.3 MG/DL (8.8-10.2); CREATININE FOR GFR 1.52 MG/DL (0.70-1.30); GLOMERULAR FILTRATION RATE 46.6 (>35); POTASSIUM SERUM 3.8 MEQ/L (3.5-5.1)
[2019-07-21 08:00] VITALS: BP 132/69
[2019-07-21] MEDS: APIXABAN 2.5 MG TAB (ELIQUIS) PO SCH ×2 (08:11→19:43)
[2019-07-21] MEDS: DOCUSATE SODIUM 100 MG CAP PO SCH ×2 (08:11→19:45)
[2019-07-21] MEDS: OMEPRAZOLE 20 MG CAP PO SCH (08:11)
[2019-07-21] MEDS: FLUCONAZOLE 100 MG TAB PO SCH (08:11)
[2019-07-21] MEDS: HYDROCORTISONE 1% CREAM 30 GM TOP SCH (08:12)
--- NOTE | 2019-07-21 08:37 | REP ---
Clinical: Pleural effusion. Technique: PA and lateral. Comparison: 07/20/2019. Findings: Bibasilar opacities and pleural effusions (right greater than left) appear essentially unchanged as compared to prior examination. Small residual right apical pneumothorax is again noted and stable. Rounded nodular density in the right mid lung zone again identified. No obvious new acute process is appreciated. The cardiac silhouette is normal. PICC line again identified with tip in the SVC. Impression: 1. Bilateral pleuroparenchymal changes with elements of atelectasis/infiltrate and pleural effusion (right greater than left) remain essentially unchanged. 2. Small right apical pneumothorax again noted and unchanged. 3. No obvious new acute process identified. Electronically Signed by Mariusz Mackenzie MD 07/21/2019 08:28 A
[2019-07-21 12:00] VITALS: BP 123/73
--- NOTE | 2019-07-21 12:32 | IPNPDOC ---
Date Seen The patient was seen on 07/21/19. Progress Note SUBJECTIVE: Patient sitting up in chair today, states that he is comfortable. No significant SOB. Saturating well on room air. Drainage from chest tube documented 300ml. OBJECTIVE PHYSICAL EXAMINATION: VITAL SIGNS: Please see below. General: Alert, elderly Eyes: Normal sclera, EOMI HENT: Atraumatic Cardiovascular: Normal rate, irregular rhythm. Pulmonary: R. sided crackles worse in the base. Chest tube positioned R. lower posterior thorax. GI: Soft, nontender, nondistended Skin: Warm and dry, multiple age spots and moles on face Neuro: CN grossly intact. No focal deficits. Strengths equal b/l. Psych: oriented x 3 LABORATORY DATA, IMAGING STUDIES, MICROBIOLOGY: Please see below. DVT prophylaxis ordered?: Eliquis held at this time for procedure ASSESSMENT AND PLAN: 1. R. sided pleural effusion recurrence - hx prior thoracentesis x2: August 2018 and May 2019 (w/ PTX). - Underwent thoracentesis with chest tube placement on this admission 07/17. R. sided chest tube in place, cardiothoracic surgery following. - Continue to monitor respiratory status. - Cardiothoracic following. Will likely place Pleurx catheter prior to discharge if care can be arranged. 2. Hypernatremia - Improving on slow D5W. - Continue to monitor daily BMPs. Encouraged PO free fluid intake. 3. YUVAL on CKD - Improving. Diuretic had been held. - Monitor BMP. 4. Chronic HFpEF - Diuretic held. Does not appear to have edema. 5. Hx MSSA endocarditis - c/w IV Ancef. Continue through 07/21. 6. Atrial Fibrillation - Rate controlled. On eliquis. DISPOSITION: Rehab placement planning VS, I&O, 24H, [facility] Vital Signs/I&O Vital Signs Date Time Temp Pulse Resp B/P (MAP) Pulse Ox O2 Delivery O2 Flow Rate FiO2 07/21/19 12:00 98.6 86 18 123/73 (90) 95 Room Air I&O- Last 24 Hours up to 6 AM 07/21/19 06:00 Intake Total 2100 ml Output Total 1530 ml Balance 570 ml Laboratory Data 24H LABS Laboratory Tests 2 07/21/19 05:10: Nucleated Red Blood Cells % (auto) 0.0, Anion Gap 4L, Glomerular Filtration Rate 46.6, Calcium Level 7.3L CBC/BMP Laboratory Tests 3/22/20 05:10 Microbiology Microbiology 07/18/19 Acid Fast Stain, Received Pending 07/18/19 Mycobacterial Culture, Received Pending 07/18/19 Fungal Smear, Received Pending 07/18/19 Fungal Culture, Received Pending 07/18/19 Gram Stain - Final, Complete 07/18/19 Anaerobic Culture - Final, Complete 07/18/19 Body Fluid Culture - Final, Complete 07/11/19 Urine Culture - Final, Complete Yeast Like Organism 07/11/19 Blood Culture - Final, Complete NO GROWTH AFTER 5 DAYS 07/11/19 Blood Culture - Final, Complete NO GROWTH AFTER 5 DAYS HANK HAGEN MD Jul 21, 2019 12:32
--- NOTE | 2019-07-21 13:04 | IPN ---
DATE: 07/21/2019 Mr. Medrano is feeling fairly well. He actually walked around the progressive care unit (PCU) today. He is still draining significant amounts out the chest tube catheter. His vital signs today show a maximum temperature (T max) of 98.9 with a heart rate that ranges between 80 and 86 in atrial fibrillation with a respiratory rate of 18 to 20 without the use of accessory muscles, who is 95 to 100% saturated on room air and whose blood pressure is ranging between 129/83 to 138/77. His intake and output over the past 24 hours has been recorded as 1630 in and 1370 out for a positivity of 260 mL. He has put 300 mL out the chest tube. His weight today is 73.1 kg compared to 72.5 kg yesterday. On physical examination, his lungs are amazingly clear with normal vesicular sounds on either side without wheezes, rhonchi, or rales. Percussion note is full to the diaphragm. Cardiac exam is without murmurs, clicks, gallops or rubs. I cannot feel his point of maximum impulse (PMI). S1, S2 are normal. Abdomen is soft and nontender. Bowel sounds are positive. There is no hepatomegaly. No costovertebral angle tenderness. Extremities show no pretibial edema. No calf tenderness. No differential swelling of the upper extremities. Skin is warm, dry and perfused without cyanosis or mottling, including that of the nail beds and the knees. Neck is supple. There is no jugular venous distention, no subcutaneous emphysema. Trachea is midline. Mouth shows his mucous membranes to be pink and moist. Lips and commissures without lesions. There is no thrush. Eyes show his pupils to be equal and reactive. Extraocular motions intact. Sclerae anicteric. Neurologic shows II-XII intact along with gross motor and gross sensation intact. Gait is not tested. Psychiatric shows him to be awake and alert, oriented times three with appropriate mood and affect and conversational. His white count today is 4.7 with a hemoglobin and hematocrit of 9.6 and 30.8, down from 10.2 and 32.4, probably secondary to hemodilution. Platelet count is 187. There is no differential. His electrolytes are essentially normal with a BUN and creatinine of 40 and 1.52, slightly improved from 42 and 1.60 yesterday. Glucose is 132 with a calcium of 7.3. His chest x-ray shows the lung fully expanded to the chest wall. There is the same blunting of the right costophrenic angle with an infiltrative pattern in the right lower lobe, which is unchanged from yesterday. Lateral film is a poor inspiration, but shows some residual fluid. IMPRESSION: 1. Recurrent pleural effusion, right side, now drained with a pigtail catheter. 2. Right heart failure. 3. Atrial fibrillation. 4. Hypertension. 5. Diastolic heart failure. 6. Chronic renal disease. 7. Sick sinus syndrome, status post pacemaker. 8. Peripheral vascular disease. 9. Cerebrovascular disease. 20. Prior history of prostate cancer with radiation therapy. 21. History of renal stones. 22. Cirrhosis based on the appearance of his liver on the CT with alcohol abuse and alcohol withdrawal, which is now resolved. PLAN AND DISCUSSION: I will plan to pull the catheter tomorrow. We will then wait for the fluid to reaccumulate. That should take a few days, but by July 30, he should be ready for transfer to a long-term facility.
--- NOTE | 2019-07-21 14:26 | IPN ---
DATE: 07/21/2019 SUBJECTIVE: The patient was seen and examined at the bedside today morning. His renal function is improving, creatinine is down to 1.5. He was started on IV D5W. Sodium level has improved to 143 today. He continues to have drainage from the right-sided pleural catheter. He denies any active complaints at this time. OBJECTIVE: Vital signs: Temperature is 98.6 degrees Fahrenheit, blood pressure 123/73, pulse is 56, respiratory rate of 18, saturating 95% on room air. Intake and output: Urine output recorded is 350 mL so far today since overnight. Chest tube drainage was 300 mL yesterday, 60 mL so far today since overnight. Weight in the bed scale is 73.1. Kg. PHYSICAL EXAMINATION General: The patient is awake, alert, oriented times two, laying in bed in no apparent distress. Head and neck exam: Extraocular muscles intact. Pupils equally round and reactive to light. Mucous membranes are moist. Neck is supple. There is no jugular venous distention (JVD). Cardiovascular: S1, S2, regular rate. 2+ edema of the left lower extremity. No edema of the right lower extremity. Respiratory: Mildly decreased breath sounds at the right base with inspiratory crackles. He has a pleural catheter in the right side. Abdomen: Soft, positive bowel sounds. Nontender. Musculoskeletal: No clubbing or cyanosis. Pulses are 2+. Central nervous system (MAC OPERATOR): No focal deficit. Power is 5/5 in bilateral upper extremities. LAB REVIEW: CBC showed a WBC of 4.7, hemoglobin 9.6, platelets are 187. BMP showed sodium 143, potassium 3.8, chloride 113, bicarbonate 26, BUN 40, creatinine is 1.5, calcium 7.3. CURRENT INPATIENT MEDICATIONS: The patient's medications were all reviewed by me. He continues to be on IV Ancef. He was started on IV D5W at 70 mL an hour. He is going to finish the second bag today. No other change in the medications today as compared with yesterday. ASSESSMENT/PLAN: 1. Acute kidney injury superimposed on chronic kidney disease stage III. Patient's renal function has improved back to baseline. Creatinine is 1.5, which is close to his baseline. 2. Hypernatremia. The patient was started on IV D5W yesterday. Sodium level is improved to 143. The patient was advised to drink more free water. 3. Right heart failure and severe tricuspid regurgitation. The patient's volume status is optimal. He is currently not on any diuretics at this time. 4. Recurrent right-sided pleural effusion. The patient has a pigtail catheter on the right side and thoracic surgery is planning to put a PleurX catheter in a few days.
[2019-07-21 16:00] VITALS: BP 112/72
[2019-07-21] MEDS: traZODone 50 MG TAB PO SCH (19:43)
[2019-07-21] MEDS: allopurinoL 300 MG TAB PO SCH (19:44)
[2019-07-21] MEDS: atenoloL 50 MG TAB PO SCH (19:44)
[2019-07-21 20:00] VITALS: BP 125/79
[2019-07-22] VITALS: BP 147/79
[2019-07-22] MEDS: ceFAZolin SOD 1 GM in D5W MINI-BAG PLUS 50 ML IV SCH ×2 (01:49→13:56)
[2019-07-22 04:00] VITALS: BP 134/74
[2019-07-22 05:06] LABS: HEMATOCRIT 30.6 % (42.0-52.0); HEMOGLOBIN 9.7 g/dl (13.5-17.5); MEAN CORPUSCULAR HEMOGLOBIN 33.6 pg (27.0-33.0); MEAN CORPUSCULAR HGB CONC 31.7 g/dl (32.0-36.5); MEAN CORPUSCULAR VOLUME 105.9 fl (80.0-96.0); PLATELET COUNT, AUTOMATED 176 10^3/uL (150-450); RED BLOOD COUNT 2.89 10^6/uL (4.30-6.10); WHITE BLOOD COUNT 4.5 10^3/uL (4.0-10.0)
[2019-07-22] MEDS: SODIUM CHLORIDE 0.9% INJ 10 ML SYR IV SCH ×2 (05:10→17:43)
[2019-07-22 05:32] LABS: CALCIUM LEVEL 7.8 MG/DL (8.8-10.2); CREATININE FOR GFR 1.39 MG/DL (0.70-1.30); GLOMERULAR FILTRATION RATE 51.7 (>35); POTASSIUM SERUM 3.8 MEQ/L (3.5-5.1)
[2019-07-22 08:00] VITALS: BP 113/63
--- NOTE | 2019-07-22 08:56 | REP ---
Clinical: Status post chest tube removal. Technique: PA and lateral. Comparison: 07/21/2019. Findings: Right-sided pleuroparenchymal changes including small right apical pneumothorax, small amount of pleural fluid at the right base, and underlying parenchymal changes remain essentially stable. New/increased left basilar infiltrate/atelectasis and possible small left pleural effusion now identified. Mediastinum and cardiac silhouette stable. Right PICC line with tip in the SVC. Skeletal structures intact. Impression: 1. Right-sided pleuroparenchymal changes including hydropneumothorax essentially unchanged. 2. New/increased left lower lobe atelectasis/opacity and small suspected pleural effusion. Electronically Signed by Mariusz Mackenzie MD 07/22/2019 08:48 A
[2019-07-22] MEDS: HYDROCORTISONE 1% CREAM 30 GM TOP SCH (09:06)
[2019-07-22] MEDS: FLUCONAZOLE 100 MG TAB PO SCH (09:06)
[2019-07-22] MEDS: OMEPRAZOLE 20 MG CAP PO SCH (09:06)
[2019-07-22] MEDS: APIXABAN 2.5 MG TAB (ELIQUIS) PO SCH ×2 (09:06→20:05)
[2019-07-22] MEDS: DOCUSATE SODIUM 100 MG CAP PO SCH ×2 (09:06→20:05)
--- NOTE | 2019-07-22 10:15 | IPNPDOC ---
Date Seen The patient was seen on 07/22/19. Progress Note SUBJECTIVE: Patient returned on XR this AM, reports feeling well and denies SOB. Chest tube output documented at 140ml. Na normalized at 142 this AM. OBJECTIVE PHYSICAL EXAMINATION: VITAL SIGNS: Please see below. General: Alert, elderly Eyes: Normal sclera, EOMI HENT: Atraumatic Cardiovascular: Normal rate, irregular rhythm. Pulmonary: Mild R. sided crackles worse in the base. Chest tube positioned R. lower posterior thorax. GI: Soft, nontender, nondistended Skin: Warm and dry, multiple age spots and moles on face Neuro: CN grossly intact. No focal deficits. Strengths equal b/l. Psych: oriented x 3 LABORATORY DATA, IMAGING STUDIES, MICROBIOLOGY: Please see below. DVT prophylaxis ordered?: Eliquis held at this time for procedure ASSESSMENT AND PLAN: 1. R. sided pleural effusion recurrence - hx prior thoracentesis x2: August 2018 and May 2019 (w/ PTX). - Underwent thoracentesis with chest tube placement on this admission 07/17. R. sided chest tube in place, cardiothoracic surgery following. - Continue to monitor respiratory status. - Cardiothoracic following. Will likely remove current chest tube and re-place with Pleurx catheter prior to discharge if care can be arranged. 2. Hypernatremia - Resolved post D5W slow infusion. - Continue to monitor daily BMPs. 3. YUVAL on CKD - Improving. Diuretic had been held. - Monitor BMP. 4. Chronic HFpEF - Diuretic held. Does not appear to have edema. 5. Hx MSSA endocarditis - c/w IV Ancef. Continue through 07/21- Today. 6. Atrial Fibrillation - Rate controlled. On eliquis. DISPOSITION: Rehab placement planning VS, I&O, 24H, [facility] Vital Signs/I&O Vital Signs Date Time Temp Pulse Resp B/P (MAP) Pulse Ox O2 Delivery O2 Flow Rate FiO2 07/22/19 08:00 96.9 97 97 113/63 (80) 18 Room Air I&O- Last 24 Hours up to 6 AM 07/22/19 06:00 Intake Total 770 ml Output Total 760 ml Balance 10 ml Laboratory Data 24H LABS Laboratory Tests 2 07/22/19 04:53: Nucleated Red Blood Cells % (auto) 0.0, Anion Gap 3L, Glomerular Filtration Rate 51.7, Calcium Level 7.8L CBC/BMP Laboratory Tests 07/22/19 04:53 Microbiology Microbiology 07/18/19 Acid Fast Stain, Received Pending 07/18/19 Mycobacterial Culture, Received Pending 07/18/19 Fungal Smear, Received Pending 07/18/19 Fungal Culture, Received Pending 07/18/19 Gram Stain - Final, Complete 07/18/19 Anaerobic Culture - Final, Complete 07/18/19 Body Fluid Culture - Final, Complete HANK HAGEN MD Jul 22, 2019 10:15
[2019-07-22 12:00] VITALS: BP 133/78
--- NOTE | 2019-07-22 12:05 | IPN ---
DATE: 07/22/2019 SUBJECTIVE: The patient was seen and examined at the bedside this morning. He was actually sitting in the sofa. He is afebrile, hemodynamically stable renal function continues to improve. Creatinine is down to 1.3 today. Hypernatremia has also improved now. The patient still has catheter in the right pleural cavity. OBJECTIVE: Vital Signs: Temperature is 96.9 degrees Fahrenheit, blood pressure 113/63, pulse is 97, respiratory of 18, saturating 97% on room air. Intake and output: Urine output recorded since overnight is 350 mL . Chest tube drainage chair yesterday was 170 mL. Weight in the bed scale is stable. PHYSICAL EXAMINATION: GENERAL: The patient is awake, alert, oriented times two sitting up in the sofa, no apparent distress. HEAD AND NECK EXAM: Extraocular muscles intact. Pupils equally round and reactive to light. Mucous membranes are moist. NECK: is supple. There is no jugular venous distention (JVD). CARDIOVASCULAR: S1, S2 regular rate. 2+ edema of the left lower extremity no edema of the right lower extremity. RESPIRATORY: Chest is clear to auscultation bilaterally. Bilateral equal air entry. No rales or rhonchi right-sided pleural space at the pigtail catheter was noted. ABDOMEN: Soft, positive bowel sounds. Nontender. No organomegaly. MUSCULOSKELETAL: No clubbing or cyanosis. Pulses are 2+. [employer]: No focal deficit. He is oriented times two, otherwise he moves all extremities. LAB REVIEW: CBC showed WBC 4.5, hemoglobin 9.7, platelets of 176. BMP showed sodium 142, potassium 3.8, chloride 112, bicarb 27, BUN 39, creatinine is 1.39. CURRENT INPATIENT MEDICATIONS: The patient's medications were all reviewed by myself. IV D5W has stopped. Fluconazole has also been stopped. No other change in the medications today as compared with yesterday. ASSESSMENT/PLAN: 1. Acute kidney injury superimposed on chronic kidney disease stage III. Patient's renal function has improved back to baseline creatinine is 1.3. 2. Hypernatremia: It is resolved with IV D5W. 3. Right heart failure and severe tricuspid regurgitation. The patient's volume status is optimal hyponatremic improved. He can get as needed diuretics from the medical team. 4. Disposition patient's renal function has improved back to baseline his electrolytes are within the acceptable range. Nephrology service is going to sign off at this moment. Please call nephrology service for any help in the management of this patient during this hospitalization.
--- NOTE | 2019-07-22 12:48 | IPN ---
DATE: 07/22/2019 I checked out Mr. Medrano's chest catheter today. I have a sinking feeling that Mr. Medrano has very little understanding and very little memory of conversations from day to day. He again asked me about placing the PleurX catheter. I have gone over that with him at least three times in the last three days and he seemed to have an understanding of it. He also has seemed to have an understanding that he was being evaluated for a fpc rehabilitation facility in conjunction with his family. Today, he is absolutely insistent upon going home and is threatening that if he cannot go home he won't undertake the PleurX catheter insertion when his pleural fluid returns. I have noted again and again that I am very concerned about him being able to take care of himself at home because of his very limited memory and essentially dementia. His vital signs today show a maximum temperature (T max) of 98.0 with a heart rate that ranges between 87 and 107 in atrial fibrillation with a respiratory rate that is constant at 18 who is 92% saturated on room air and whose blood pressure is ranging between 125/79 to 147/79. His intake and output over the past 24 hours has been recorded as 1190 in and 720 out for a positivity of 470 mL. He has put 170 mL out the chest catheter. His weight today is recorded as 57.4 kg, quite different from 73.1 kg yesterday, which I suspect is spurious. On physical examination, his lungs show normal vesicular sounds on the left with coarse and fine rhonchi and rales on the right. Percussion notes are full to the diaphragm. Cardiac exam is without murmurs, clicks, gallops or rubs. I cannot feel his point of maximum impulse (PMI). S1, S2 are normal. Abdomen is soft and nontender. Bowel sounds are positive. There is no hepatomegaly. No costovertebral angle tenderness. Extremities show now trace to 1+ pretibial edema, which is a change. No calf tenderness. No differential swelling of the upper extremities. Skin is warm, dry and perfused without cyanosis or mottling, including that of the nail beds and the knees. Neck is supple. There is no jugular venous distention, no subcutaneous emphysema. Trachea is midline. Mouth shows his mucous membranes to be pink and moist. Lips and commissures without lesions. There is no thrush. Eyes show his pupils to be equal and reactive. Extraocular motions intact. Sclerae anicteric. Neurologic shows II-XII intact along with gross motor and gross sensation intact. Gait is not tested. Psychiatric shows him to be awake and alert, oriented times three with appropriate mood and affect and conversational. His white count today is 4.5 with a hemoglobin and hematocrit of 9.7 and 30.6 respectively, with a platelet count of 176. There is no differential. Electrolytes are normal with a BUN and creatinine of 39 and 1.39, which continues to improve from 40 and 1.52 yesterday. Glucose is 103 with a calcium of 7.8. His chest x-ray shows the lung fully expanded to the chest wall. There is atelectasis in the right costophrenic angle. There is also what looks to be a small amount of fluid in the minor fissure. IMPRESSION: 1. Recurrent pleural effusion, right side, now drained with a pigtail catheter. 2. Right heart failure. 3. Atrial fibrillation. 4. Hypertension. 5. Diastolic heart failure. 6. Chronic renal disease. 7. Sick sinus syndrome, status post pacemaker. 8. Peripheral vascular disease. 9. Cerebrovascular disease. 10. History of prostate cancer with radiation therapy. 11. History of renal stones. 12. Cirrhosis based on the appearance of his liver on his chest CT. 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 PLAN AND DISCUSSION: I have removed his pigtail catheter. The plan was to wait for the fluid to reaccumulate and then have him qualified for superintendent container terminal nursing care by 07/31/2019. I certainly can't force him to undergo the PleurX catheter insertion unless he is declared mentally incompetent and his family is in agreement. Even if I do, his ability to take care of it and his willingness to take care of it would be problematic. We may just be stuck with having to drain him percutaneously over the course of his remaining lifetime.
[2019-07-22 16:00] VITALS: BP 128/71
[2019-07-22 20:00] VITALS: BP 132/76
[2019-07-22] MEDS: traZODone 50 MG TAB PO SCH (20:04)
[2019-07-22] MEDS: allopurinoL 300 MG TAB PO SCH (20:04)
[2019-07-22] MEDS: atenoloL 50 MG TAB PO SCH (20:05)
[2019-07-22] MEDS: PERCOCET 5MG/325MG TAB PO PRN (20:07)
[2019-07-23] VITALS: BP 132/69
[2019-07-23 04:00] VITALS: BP 122/78
[2019-07-23] MEDS: SODIUM CHLORIDE 0.9% INJ 10 ML SYR IV SCH ×2 (06:11→17:27)
[2019-07-23 07:53] VITALS: BP 125/66
--- NOTE | 2019-07-23 08:08 | REP ---
Clinical: Follow up pleural effusion. Technique: PA and lateral. Comparison: 07/22/2019. Findings: Small right apical pneumothorax and right lower lobe pleuroparenchymal changes are again noted and essentially unchanged. The mediastinum and cardiac silhouette are normal. Left lower lobe/retrocardiac atelectasis cannot be excluded. Left costophrenic angle appears sharp and without obvious left pleural effusion. Mediastinum and cardiac silhouette are normal. Impression: 1. Stable right apical pneumothorax and essentially unchanged right lower lobe pleuroparenchymal changes. 2. Cannot exclude a retrocardiac/left lower lobe atelectasis. Electronically Signed by Mariusz Mackenzie MD 07/23/2019 08:00 A
[2019-07-23 08:10] LABS: HEMATOCRIT 34.6 % (42.0-52.0); HEMOGLOBIN 10.7 g/dl (13.5-17.5); MEAN CORPUSCULAR HEMOGLOBIN 33.1 pg (27.0-33.0); MEAN CORPUSCULAR HGB CONC 30.9 g/dl (32.0-36.5); MEAN CORPUSCULAR VOLUME 107.1 fl (80.0-96.0); PLATELET COUNT, AUTOMATED 214 10^3/uL (150-450); RED BLOOD COUNT 3.23 10^6/uL (4.30-6.10); WHITE BLOOD COUNT 4.4 10^3/uL (4.0-10.0)
[2019-07-23] MEDS: HYDROCORTISONE 1% CREAM 30 GM TOP SCH (08:41)
[2019-07-23] MEDS: OMEPRAZOLE 20 MG CAP PO SCH (08:41)
[2019-07-23] MEDS: DOCUSATE SODIUM 100 MG CAP PO SCH ×2 (08:41→19:47)
[2019-07-23] MEDS: APIXABAN 2.5 MG TAB (ELIQUIS) PO SCH ×2 (08:41→19:47)
[2019-07-23 08:44] LABS: CREATININE FOR GFR 1.39 MG/DL (0.70-1.30); GLOMERULAR FILTRATION RATE 51.7 (>35); POTASSIUM SERUM 3.9 MEQ/L (3.5-5.1)
--- NOTE | 2019-07-23 08:56 | IPN ---
DATE OF SERVICE: 07/23/2019 Mr. Medrano is sitting up comfortably and breathing well. He went for his chest x-ray today, and there is very little change without reaccumulation of fluid so far. His vital signs today show a maximum temperature (T max) of 98.2 with a heart rate that ranges between 82 and 79 in atrial fibrillation with a respiratory rate that is constant at 18 who is 962% 99% saturated on room air and whose blood pressure is ranging between 125/66 to 132/69. His intake and output over the past 24 hours has been recorded as 1130 in and 1300 out for a negativity of 170 mL. His chest catheter was removed yesterday. His weight today is 73.5 kg compared to 73.1 kg two days ago. On physical examination, his lungs surprisingly show normal vesicular sounds hroughout. There is no wheezes, rhonchi, or rales. Percussion notes are full to the diaphragm. Cardiac examination shows a blowing murmur during systole at the left lower sternal border and apex. I cannot feel his point of maximum impulse (PMI). S1, S2 are normal. Abdomen is soft and nontender. Bowel sounds are positive. There is no hepatomegaly. No costovertebral angle tenderness. Extremities show no pretibial edema. No calf tenderness. No differential swelling of the upper extremities. Skin is warm, dry, and perfused without cyanosis or mottling, including that of the nail beds and the knees. Neck is supple. There is no jugular venous distention, no subcutaneous emphysema. Trachea is midline. Mouth shows his mucous membranes to be pink and moist. Lips and commissures without lesions. There is no thrush. Eyes show his pupils to be equal and reactive. Extraocular motions intact. Sclerae anicteric. Neurologic shows II-XII intact along with gross motor and gross sensation intact. Gait is not tested. Psychiatric shows him to be awake and alert, oriented times three with appropriate mood and affect and conversational. His white count today is 4.4 with a hemoglobin and hematocrit of 10.7 and 34.6 up from yesterdays of 9.7 and 30.6, platelet count is 214 and stable. There is no differential. Electrolytes are still pending today. It should be noted that he has put out 1300 mL in urine today, and I am hoping that reflects improvement in his renal function when his chemistries return. His chest x-ray today shows the lung fully expanded to the chest wall. There is some blunting of the right costophrenic angle, but it is not changed from yesterday before the catheter was removed. There looks to be still some fluid in a fissure, mass creating a pseudotumor. The right lower lobe infiltrate looks to be somewhat improved. IMPRESSION: 1. Right heart failure. 2. Atrial fibrillation. 3. Hypertension. 4. Diastolic heart failure. 5. Chronic renal disease. 6. Sick sinus syndrome, status post pacemaker. 7. Peripheral vascular disease. 8. Cerebrovascular disease. 9. History of prostate cancer with radiation therapy. 10. History of renal stones. 11. Cirrhosis based on the appearance of his liver on his chest CT. 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 PLAN AND DISCUSSION: So far, so good with regard to reaccumulation of his fluid. It has reaccumulated four times before, and I am sure it will do so again. The question is really going to be is to what his placement is going to be and if he will accept placement. His memory from day to day is almost zero in regard to what meaningful conversations we had. I will continue to follow along.
[2019-07-23 11:31] VITALS: BP 119/67
[2019-07-23 16:21] VITALS: BP 136/82
--- NOTE | 2019-07-23 17:25 | IPNPDOC ---
Date Seen The patient was seen on 07/23/19. Progress Note SUBJECTIVE: 84-year-old male with past medical history of congestive heart failure, atrial fibrillation on anticoagulation, hypertension, who was admitted for acute on chronic kidney injury and recurrent right pleural effusion. Patient was evaluated by nephrology, renal function has improved and currently at baseline. Patient was evaluated by thoracic surgery and had a chest tube placed which was removed yesterday. Chest x-ray this morning shows stable right pleural effusion, we'll continue to monitor for reaccumulation. Patient is seen in the morning, comfortable in chair, without any complaints, denies any shortness of breath, chest pain, nausea, vomiting, cough, diarrhea or constipation. 10 point review of system is negative except for above PHYSICAL EXAMINATION: VITAL SIGNS: Please see below. GENERAL: No distress HEENT: Normocephalic, atraumatic, moist mucous membranes NECK: Supple CARDIOVASCULAR EXAMINATION: S1, S2, no murmurs RESPIRATORY EXAMINATION: Bibasilar rhonchi, no wheezing ABDOMINAL EXAMINATION: Soft, nontender, nondistended, positive bowel sounds EXTREMITIES: Range of motion intact SKIN: No rash NEUROLOGICAL EXAMINATION: no focal deficits PSYCHIATRIC EXAMINATION: Calm and cooperative LABORATORY DATA, IMAGING STUDIES, MICROBIOLOGY: Please see below. ASSESSMENT AND PLAN: 84-year-old male with multiple medical comorbidities admitted for acute kidney injury, recurrent right pleural effusion. PROBLEMS: 1. Acute on chronic kidney disease: Now resolved, creatinine back to baseline, we'll monitor. 2. Recurrent right pleural effusion: Status post chest tube placement which has now been removed, daily monitoring with chest x-ray, tentatively plan for Pleurx catheter later this week after fluid has reaccumulated. Thoracic surgery following. 3. Physical deconditioning: Will require rehabilitation followed by placement, social studies teacher arranging. 4. Atrial fibrillation: Continue Eliquis for anticoagulation and atenolol for rate control DVT prophylaxis: on Eliquis GI prophylaxis: Home PPI VS, I&O, 24H, Fishbone Vital Signs/I&O Vital Signs Date Time Temp Pulse Resp B/P (MAP) Pulse Ox O2 Delivery O2 Flow Rate FiO2 07/23/19 16:21 97.0 84 18 136/82 (100) 97 Room Air I&O- Last 24 Hours up to 6 AM 07/23/19 06:00 Intake Total 1080 ml Output Total 1350 ml Balance -270 ml Laboratory Data 24H LABS Laboratory Tests 2 07/23/19 07:50: Nucleated Red Blood Cells % (auto) 0.0, Anion Gap 5L, Glomerular Filtration Rate 51.7, Calcium Level 8.0L CBC/BMP Laboratory Tests 07/23/19 07:50 Microbiology Microbiology 07/18/19 Acid Fast Stain, Received Pending 07/18/19 Mycobacterial Culture, Received Pending 07/18/19 Fungal Smear, Received Pending 07/18/19 Fungal Culture, Received Pending 07/18/19 Gram Stain - Final, Complete 07/18/19 Anaerobic Culture - Final, Complete 07/18/19 Body Fluid Culture - Final, Complete MARIEL VEGAS MD Jul 23, 2019 17:25
[2019-07-23] MEDS: allopurinoL 300 MG TAB PO SCH (19:47)
[2019-07-23] MEDS: traZODone 50 MG TAB PO SCH (19:47)
[2019-07-23] MEDS: atenoloL 50 MG TAB PO SCH (19:48)
[2019-07-23 20:00] VITALS: BP 128/63
[2019-07-24] VITALS (7 sets, daily range): BP systolic 127–150; BP diastolic 77–88
[2019-07-24 04:57] LABS: HEMATOCRIT 32.8 % (42.0-52.0); HEMOGLOBIN 10.1 g/dl (13.5-17.5); MEAN CORPUSCULAR HEMOGLOBIN 32.8 pg (27.0-33.0); MEAN CORPUSCULAR HGB CONC 30.8 g/dl (32.0-36.5); MEAN CORPUSCULAR VOLUME 106.5 fl (80.0-96.0); PLATELET COUNT, AUTOMATED 190 10^3/uL (150-450); RED BLOOD COUNT 3.08 10^6/uL (4.30-6.10); WHITE BLOOD COUNT 4.6 10^3/uL (4.0-10.0)
[2019-07-24 05:16] LABS: CALCIUM LEVEL 8.2 MG/DL (8.8-10.2); CREATININE FOR GFR 1.38 MG/DL (0.70-1.30); GLOMERULAR FILTRATION RATE 52.1 (>35); POTASSIUM SERUM 3.5 MEQ/L (3.5-5.1)
[2019-07-24] MEDS: SODIUM CHLORIDE 0.9% INJ 10 ML SYR IV SCH ×3 (06:39→20:10)
--- NOTE | 2019-07-24 08:40 | REP ---
Chest x-ray: Two views. History: Pleural effusion. Comparison study: July 23, 2019. The Findings: A right-sided PICC line and a left-sided pacemaker leads are again noted. Monitoring electrodes are visible. There is blunting of the right lateral and both posterior pleural angles again noted unchanged consistent with small amounts of fluid. There is some fissural thickening on the lateral film in the major fissure. An oval shaped nodular density is seen in the right mid lung zone which may well be a minor fissure fluid as well. In any event it is unchanged. No new infiltrate is seen. Heart size is borderline and unchanged. Electronically Signed by Hollis Weems MD 07/24/2019 08:31 A
[2019-07-24] MEDS: APIXABAN 2.5 MG TAB (ELIQUIS) PO SCH ×2 (09:34→20:08)
[2019-07-24] MEDS: OMEPRAZOLE 20 MG CAP PO SCH (09:34)
[2019-07-24] MEDS: HYDROCORTISONE 1% CREAM 30 GM TOP SCH (09:34)
[2019-07-24] MEDS: DOCUSATE SODIUM 100 MG CAP PO SCH ×2 (09:34→20:08)
--- NOTE | 2019-07-24 12:35 | IPN ---
DATE: 07/24/2019 Mr. Medrano is quite comfortable today. He is lying in bed breathing well, and is not complaining of shortness of breath. Mr. Medrano has very, very poor short-term memory and basically cannot even remember what his hospitalist, Dr. Scott, spoke to him today about regarding placement. His vital signs show a maximum temperature (Tmax) of 97.0 with a heart rate that ranges between 84 and 96 in atrial fibrillation with a respiratory rate that is constant at 18 who is 98-99% saturated on room air and whose blood pressure is ranging between 128/63-150/88. His intake and output over the past 24 hours has been recorded as 360 in and 800 out for a negativity of 440 mL. He is not listed as having incontinent voids, but I am suspicious of the accuracy of the intakes and outputs. Weight today is 74.1 kg compared to 73.5 kg yesterday. On physical examination, he has equal breath sounds on either side with a percussion note that is full to the diaphragm. There is inspiratory rales and rhonchi at both bases. Cardiac exam shows a systolic ejection murmur at the left lower sternal border, approximately grade 2/6. I cannot feel his point of maximum impulse (PMI). S1 and S2 are normal. Abdomen is soft, nontender. Bowel sounds are positive. There is no hepatomegaly. No costovertebral angle (CVA) tenderness. Extremities show no pretibial edema. No calf tenderness. No differential swelling of the upper extremities. Skin is warm, dry, and perfused without cyanosis or mottling, including that of the nailbeds and the knees. Neck is supple. There is no jugular venous distention, no subcutaneous emphysema. Trachea is midline. Mouth shows his mucous membranes to be pink and moist. Lips and commissures without lesions. There is no thrush. Eyes show his pupils to be equal and reactive. Extraocular motions intact. Sclerae anicteric. Neurologic shows II-XII intact along with gross motor and gross sensation intact. Gait is not tested. Psychiatric shows him to have very short-term memory but awake and alert and conversational. His white count today is 4.6 with a hemoglobin and hematocrit of 10.1 and 32.8, essentially unchanged from yesterday, with a platelet count of 190. Chemistries today show a marginally low potassium of 3.5. BUN and creatinine are 36. 1.38, respectively, unchanged from yesterday, with a glucose of 141 and a calcium of 8.2. His chest x-ray today shows some blunting of the right costophrenic angle, which is unchanged from yesterday on the PA film. His lateral film may show a little bit more of an effusion than yesterday, although the appearance may very well be to technique and inspiration. IMPRESSION: 1. Right heart failure. 2. Atrial fibrillation. 3. Hypertension. 4. Diastolic heart failure. 5. Chronic renal disease. 6. Sick sinus syndrome, status post pacemaker. 7. Peripheral vascular disease. 8. Cerebrovascular disease. 9. History of prostate cancer with radiation therapy. 10. History of renal stones. 11. Cirrhosis based on the appearance of his liver on his chest CT. 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 PLAN AND DISCUSSION: So far, so good, although I do expect the effusion to come back as it has come back four other times. Every time I speak to Mr. Bernabe, he seemed to understand about the PleurX catheter. Today, he asks me the same question he asked yesterday who is going to take care of it, and I have indicated to him that he will have to go to a placement facility. He is unalterably opposed to that. The problem is that he has a very limited short-term memory and understanding not even being able to remember what Dr. Scott said today regarding placement on his rounds. As noted before are fallback worse case scenario is that he will have to come in for intermittent thoracenteses. We certainly cannot place a PleurX catheter if he cannot take care of it or have some other agency take care of it.
--- NOTE | 2019-07-24 19:28 | IPNPDOC ---
Date Seen The patient was seen on 07/24/19. Progress Note SUBJECTIVE: 84-year-old male with past medical history of congestive heart failure, atrial fibrillation on anticoagulation, hypertension, who was admitted for acute on chronic kidney injury and recurrent right pleural effusion. Patient was evaluated by nephrology, renal function has improved and currently at baseline. Patient was evaluated by thoracic surgery and had a chest tube placed which was removed yesterday. Chest x-ray this morning shows stable right pleural effusion, we'll continue to monitor for reaccumulation. Patient is seen in the morning, comfortable in chair, without any complaints, denies any shortness of breath, chest pain, nausea, vomiting, cough, diarrhea or constipation. 07/24/19 No acute events overnight, comfortable in chair, working w/ PT, has poor understanding and recollection, wishes to go home but easily persuaded (for the time being) with regards to placement and need/management of PleurX. He has no complaints at this time, denies dyspnea, cough, CP, N/V/D or abdominal pain. 10 point review of system is negative except for above PHYSICAL EXAMINATION: VITAL SIGNS: Please see below. GENERAL: No distress HEENT: Normocephalic, atraumatic, moist mucous membranes NECK: Supple CARDIOVASCULAR EXAMINATION: S1, S2, no murmurs RESPIRATORY EXAMINATION: Bibasilar rhonchi, diminished in RLL, no wheezing ABDOMINAL EXAMINATION: Soft, nontender, nondistended, positive bowel sounds EXTREMITIES: Range of motion intact SKIN: No rash NEUROLOGICAL EXAMINATION: no focal deficits PSYCHIATRIC EXAMINATION: Calm and cooperative LABORATORY DATA, IMAGING STUDIES, MICROBIOLOGY: Please see below. ASSESSMENT AND PLAN: 84-year-old male with multiple medical comorbidities admitted for acute kidney injury, recurrent right pleural effusion. PROBLEMS: 1. Acute on chronic kidney disease: Now resolved, creatinine back to baseline, will monitor response to Lasix. 2. Recurrent right pleural effusion: Status post chest tube placement which has now been removed, CXR showing stable R pleural effusion, tentatively plan for Pleurx catheter later this week, start Lasix 40 mg PO daily, thoracic surgery following. 3. Physical deconditioning: Will require rehabilitation followed by placement, social media marketing analyst arranging. 4. Atrial fibrillation: Continue Eliquis for anticoagulation and atenolol for rate control DVT prophylaxis: on Eliquis GI prophylaxis: Home PPI VS, I&O, 24H, Fishbone Vital Signs/I&O Vital Signs Date Time Temp Pulse Resp B/P (MAP) Pulse Ox O2 Delivery O2 Flow Rate FiO2 07/24/19 16:00 95.9 90 20 127/81 (96) 99 Room Air I&O- Last 24 Hours up to 6 AM 07/24/19 06:00 Intake Total 360 ml Output Total 500 ml Balance -140 ml Laboratory Data 24H LABS Laboratory Tests 2 07/24/19 04:43: Nucleated Red Blood Cells % (auto) 0.0, Anion Gap 4L, Glomerular Filtration Rate 52.1, Calcium Level 8.2L CBC/BMP Laboratory Tests 07/24/19 04:43 Microbiology Microbiology 07/18/19 Acid Fast Stain, Received Pending 07/18/19 Mycobacterial Culture, Received Pending 07/18/19 Fungal Smear, Received Pending 07/18/19 Fungal Culture, Received Pending 07/18/19 Gram Stain - Final, Complete 07/18/19 Anaerobic Culture - Final, Complete 07/18/19 Body Fluid Culture - Final, Complete MARIEL VEGAS MD Jul 24, 2019 19:28
[2019-07-24] MEDS: POTASSIUM CHLORIDE 10 MEQ SR TABLET PO SCH (20:08)
[2019-07-24] MEDS: atenoloL 50 MG TAB PO SCH (20:08)
[2019-07-24] MEDS: traZODone 50 MG TAB PO SCH (20:08)
[2019-07-24] MEDS: allopurinoL 300 MG TAB PO SCH (20:08)
[2019-07-25 04:00] VITALS: BP 150/92
--- NOTE | 2019-07-25 08:16 | REP ---
Chest x-ray: Two views. History: Pleural effusion. Comparison chest x-ray: July 24, 2019. Findings: Monitoring electrodes are seen. A right-sided PICC line remains in place as do the pacemaker leads. There is slight blunting of the posterior pleural angles on lateral radiograph again noted unchanged from yesterday's radiograph. There is a hazy opacity in the right base consistent with fissural fluid in the major fissure which is visible on the lateral radiograph. This is slightly more prominent. No new infiltrate. Electronically Signed by Hollis Weems MD 07/25/2019 08:07 A
[2019-07-25] MEDS: OMEPRAZOLE 20 MG CAP PO SCH (08:17)
[2019-07-25] MEDS: APIXABAN 2.5 MG TAB (ELIQUIS) PO SCH ×2 (08:17→21:40)
[2019-07-25] MEDS: FUROSEMIDE 40 MG TAB PO SCH (08:18)
[2019-07-25] MEDS: DOCUSATE SODIUM 100 MG CAP PO SCH ×2 (08:18→21:40)
[2019-07-25] MEDS: POTASSIUM CHLORIDE 10 MEQ SR TABLET PO SCH ×2 (08:18→21:40)
[2019-07-25] MEDS: HYDROCORTISONE 1% CREAM 30 GM TOP SCH (08:19)
[2019-07-25 08:27] VITALS: BP 119/72
[2019-07-25 11:36] VITALS: BP 126/71
--- NOTE | 2019-07-25 12:42 | IPN ---
DATE: 07/25/2019 Mr. Medrano is comfortable sitting up in his chair today. He is not complaining of shortness of breath nor he is complaining of chest discomfort or chest pain. His vital signs show a maximum temperature (Tmax) of 97.5 with a heart rate that ranges between 83 and 85 in atrial fibrillation with a respiratory rate of 16 to 18 without the use of accessory muscles who is 98% saturated now on room air and whose blood pressure is ranging between 150/92 to 119/72. His intake and output over the past 24 hours has been recorded as 1020 in and 425 out for a positivity of 600 mL. He weighs 73.5 kg compared to 74.1 kg yesterday. He has only put out 425 mL in urine and there are no incontinent voids recorded. On physical examination, he has equal breath sounds on either side with bibasilar crackles on either side. Percussion note is full to the diaphragm. Cardiac exam has a systolic ejection murmur at the apex and along the left lower sternal border. I cannot feel his point of maximum impulse (PMI). S1 and S2 are normal. Abdomen is soft, nontender. Bowel sounds are positive. There is no hepatomegaly. No costovertebral angle (CVA) tenderness. Extremities show no pretibial edema. No calf tenderness. No differential swelling of the upper extremities. Skin is warm, dry, and perfused without cyanosis or mottling, including that of the nail beds and the knees. Neck is supple. There is no jugular venous distention. No subcutaneous emphysema. Trachea is midline. Mouth shows his mucous membranes to be pink and moist. Lips and commissures without lesions. There is no thrush. Eyes show his pupils to be equal and reactive. Extraocular motions intact. Sclerae anicteric. Neurologic shows II-XII intact along with gross motor and gross sensation intact. Gait is not tested. Psychiatric shows him to be awake, alert and conversational. As noted yesterday, his short term memory is quite limited. He does have every intention of going home. His chest x-ray today maybe shows a little bit more of fluid on the PA film. On the lateral, it looks to be more anterior. It is however a trivial increase compared to yesterdays. There would not be enough for a PleurX catheter target as of yet. There is no white count or chemistries on him today. IMPRESSION: 1. Right heart failure. 2. Atrial fibrillation. 3. Hypertension. 4. Diastolic heart failure. 5. Chronic renal disease. 6. Sick sinus syndrome, status post pacemaker. 7. Peripheral vascular disease. 8. Cerebrovascular disease. 9. History of prostate cancer with radiation therapy. 10. History of renal stones. 11. Cirrhosis based on the appearance of his liver on chest CT. 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 PLAN AND DISCUSSION: We are still in a holding pattern, particularly until 07/31/2019 when he might qualify for senior living residence care. His chest x-ray does show a small almost trivial amount of increase from yesterday, but certainly not enough for a PleurX catheter target. Will continue to watch his chest x-rays. [facility] will have to address his going to a senior living care facility versus going home.
[2019-07-25 16:00] VITALS: BP 120/74
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
[2019-07-25] MEDS: SODIUM CHLORIDE 0.9% INJ 10 ML SYR IV SCH (18:01)
[2019-07-25 20:00] VITALS: BP 132/70
[2019-07-25] MEDS: allopurinoL 300 MG TAB PO SCH (21:40)
[2019-07-25] MEDS: atenoloL 50 MG TAB PO SCH (21:40)
[2019-07-25] MEDS: traZODone 50 MG TAB PO SCH (21:40)
[2019-07-25 23:59] VITALS: BP 163/62
[2019-07-26 04:00] VITALS: BP 154/86
[2019-07-26] MEDS: SODIUM CHLORIDE 0.9% INJ 10 ML SYR IV SCH ×2 (05:23→16:54)
[2019-07-26 05:35] LABS: HEMATOCRIT 32.3 % (42.0-52.0); MEAN CORPUSCULAR HEMOGLOBIN 33.2 pg (27.0-33.0); MEAN CORPUSCULAR VOLUME 107.3 fl (80.0-96.0); PLATELET COUNT, AUTOMATED 228 10^3/uL (150-450); RED BLOOD COUNT 3.01 10^6/uL (4.30-6.10); WHITE BLOOD COUNT 4.4 10^3/uL (4.0-10.0)
[2019-07-26 06:01] LABS: CALCIUM LEVEL 8.2 MG/DL (8.8-10.2); CREATININE FOR GFR 1.33 MG/DL (0.70-1.30); GLOMERULAR FILTRATION RATE 54.4 (>35)
[2019-07-26 08:00] VITALS: BP 161/91
--- NOTE | 2019-07-26 08:16 | REP ---
Chest x-ray: Three views. History: Pleural effusion. Findings: Blunting of the pleural angles is again seen with some fissural thickening on lateral radiograph unchanged. A nodular opacity is again seen in the right perihilar region which is felt to be fissural fluid. This is unchanged. No new infiltrate. Some increased markings are noted in the bases bilaterally unchanged. Mild cardiac enlargement with pacemaker again seen. Right-sided PICC line remains in place. Electronically Signed by Hollis Weems MD 07/26/2019 08:07 A
[2019-07-26] MEDS: FUROSEMIDE 40 MG TAB PO SCH (08:22)
[2019-07-26] MEDS: DOCUSATE SODIUM 100 MG CAP PO SCH ×2 (08:22→20:22)
[2019-07-26] MEDS: APIXABAN 2.5 MG TAB (ELIQUIS) PO SCH ×2 (08:22→20:22)
[2019-07-26] MEDS: OMEPRAZOLE 20 MG CAP PO SCH (08:23)
[2019-07-26] MEDS: HYDROCORTISONE 1% CREAM 30 GM TOP SCH (08:23)
[2019-07-26] MEDS: POTASSIUM CHLORIDE 10 MEQ SR TABLET PO SCH ×2 (08:23→20:24)
[2019-07-26 12:00] VITALS: BP 124/58
--- NOTE | 2019-07-26 12:49 | IPN ---
DATE: 07/26/2019 Mr. Medrano is feeling quite well today. He is walking around and he states that he is not short of breath. There is no chest pain. His vital signs show a maximum temperature (Tmax) of 98.0 with a heart rate that ranges between 82 and 86 in atrial fibrillation with a respiratory rate of 18 to 16 without the use of accessory muscles who is 99-100% saturated on room air and whose blood pressure is ranging between 120/74 to 163/62. His intake and output over the past 24 hours has been recorded as 1200 in and 1600 out for a negativity of 400 mL. Weight today is 72.9 kg compared to 73.5 kg yesterday. On physical examination, his lung sounds are remarkably clear with normal vesicular sounds on either side with a full percussion note on either side. Cardiac exam shows an irregular rate and rhythm with a 2/6 systolic murmur at the left lower sternal border and apex. I cannot feel his point of maximum impulse (PMI). S1 and S2 are normal. Abdomen is soft, nontender. Bowel sounds are positive. There is no hepatomegaly. No costovertebral angle (CVA) tenderness. Extremities show no pretibial edema. No calf tenderness. No differential swelling of the upper extremities. Skin is warm, dry, and perfused without cyanosis or mottling, including that of the nail beds and the knees. Neck is supple. There is no jugular venous distention. No subcutaneous emphysema. Trachea is midline. Mouth shows his mucous membranes to be pink and moist. Lips and commissures without lesions. There is no thrush. Eyes show his pupils to be equal and reactive. Extraocular motions intact. Sclerae anicteric. Neurologic shows II-XII intact along with gross motor and gross sensation intact. Gait is not tested. Psychiatric shows him to be awake, alert and conversational. His white count today is 4.4 with hemoglobin and hematocrit of 10.0 and 32.3, unchanged, with a platelet count of 228 and stable. Electrolytes show a marginally high sodium of 147 with a BUN and creatinine of 35 and 1.33, glucose of 105 and a calcium of 8.2. His chest x-ray is unchanged from yesterday. There is no more reaccumulation of fluid. There is some blunting of the right costophrenic angle. IMPRESSION: 1. Right heart failure. 2. Atrial fibrillation. 3. Hypertension. 4. Diastolic heart failure. 5. Chronic renal disease. 6. Sick sinus syndrome, status post pacemaker. 7. Peripheral vascular disease. 8. Cerebrovascular disease. 9. History of prostate cancer with radiation therapy. 10. History of renal stones. 11. Cirrhosis based on the appearance of liver on CT scan. 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 PLAN AND DISCUSSION: So far so good with the reaccumulation. He is certainly intent on going home. I am going to have to leave that with [facility] Family Services with regard to his eventual disposition. I am certainly not prepared to place PleurX catheter at this time as his fluid has not reaccumulated.
[2019-07-26 16:00] VITALS: BP 131/76
--- NOTE | 2019-07-26 18:14 | IPNPDOC ---
Date Seen The patient was seen on 07/26/19. Progress Note SUBJECTIVE: 84-year-old male with past medical history of congestive heart failure, atrial fibrillation on anticoagulation, hypertension, who was admitted for acute on chronic kidney injury and recurrent right pleural effusion. Patient was evaluated by nephrology, renal function has improved and currently at baseline. Patient was evaluated by thoracic surgery and had a chest tube placed which was removed yesterday. Chest x-ray this morning shows stable right pleural effusion, we'll continue to monitor for reaccumulation. Patient is seen in the morning, comfortable in chair, without any complaints, denies any shortness of breath, chest pain, nausea, vomiting, cough, diarrhea or constipation. 07/24/19 No acute events overnight, comfortable in chair, working w/ PT, has poor understanding and recollection, wishes to go home but easily persuaded (for the time being) with regards to placement and need/management of PleurX. He has no complaints at this time, denies dyspnea, cough, CP, N/V/D or abdominal pain. 07/25/19 Patient seen in the morning, comfortable in chair, without any complaints at this time, awaiting insurance approval for rehabilitation placement. 07/26/19 Patient seen in the morning, no acute events overnight, without any complaints, continues to report that he wants to go home, but upon reminder that he needs to go to rehabilitation he is easily agreeable, at least temporarily. 10 point review of system is negative except for above PHYSICAL EXAMINATION: VITAL SIGNS: Please see below. GENERAL: No distress HEENT: Normocephalic, atraumatic, moist mucous membranes NECK: Supple CARDIOVASCULAR EXAMINATION: S1, S2, no murmurs RESPIRATORY EXAMINATION: Bibasilar rhonchi, diminished in RLL, no wheezing ABDOMINAL EXAMINATION: Soft, nontender, nondistended, positive bowel sounds EXTREMITIES: Range of motion intact SKIN: No rash NEUROLOGICAL EXAMINATION: no focal deficits PSYCHIATRIC EXAMINATION: Calm and cooperative LABORATORY DATA, IMAGING STUDIES, MICROBIOLOGY: Please see below. ASSESSMENT AND PLAN: 84-year-old male with multiple medical comorbidities adm itted for acute kidney injury, recurrent right pleural effusion. PROBLEMS: 1. Acute on chronic kidney disease: Now resolved, creatinine back to baseline. 2. Recurrent right pleural effusion: Status post chest tube placement which has now been removed, CXR shows slight worsening in pleural effusion, need for PleurX catheter placement as per thoracic surgery, continue Lasix 40 mg PO daily. 3. Physical deconditioning: Will require rehabilitation followed by placement, social media strategist has arranged for transfer to [facility] on Monday. 4. Atrial fibrillation: Continue Eliquis for anticoagulation and atenolol for rate control DVT prophylaxis: on Eliquis GI prophylaxis: Home PPI VS, I&O, 24H, Fishbone Vital Signs/I&O Vital Signs Date Time Temp Pulse Resp B/P (MAP) Pulse Ox O2 Delivery O2 Flow Rate FiO2 07/26/19 12:00 97.5 96 19 124/58 (80) 96 Room Air I&O- Last 24 Hours up to 6 AM 07/26/19 06:00 Intake Total 1200 ml Output Total 1725 ml Balance -525 ml Laboratory Data 24H LABS Laboratory Tests 2 07/26/19 05:25: Nucleated Red Blood Cells % (auto) 0.0, Anion Gap 6L, Glomerular Filtration Rate 54.4, Calcium Level 8.2L CBC/BMP Laboratory Tests 07/26/19 05:25 Microbiology Microbiology 07/18/19 Acid Fast Stain, Received Pending 07/18/19 Mycobacterial Culture, Received Pending 07/18/19 Fungal Smear, Received Pending 07/18/19 Fungal Culture, Received Pending 07/18/19 Gram Stain - Final, Complete 07/18/19 Anaerobic Culture - Final, Complete 07/18/19 Body Fluid Culture - Final, Complete MARIEL VEGAS MD Jul 26, 2019 18:14
[2019-07-26 20:00] VITALS: BP 116/64
[2019-07-26] MEDS: allopurinoL 300 MG TAB PO SCH (20:23)
[2019-07-26] MEDS: traZODone 50 MG TAB PO SCH (20:23)
[2019-07-26] MEDS: atenoloL 50 MG TAB PO SCH (20:23)
[2019-07-27] VITALS: BP 156/84
[2019-07-27 04:00] VITALS: BP 128/72
[2019-07-27] MEDS: SODIUM CHLORIDE 0.9% INJ 10 ML SYR IV SCH ×2 (05:30→17:09)
[2019-07-27 07:35] VITALS: BP 136/83
[2019-07-27] MEDS: DOCUSATE SODIUM 100 MG CAP PO SCH ×2 (08:24→20:05)
[2019-07-27] MEDS: APIXABAN 2.5 MG TAB (ELIQUIS) PO SCH ×2 (08:24→20:06)
[2019-07-27] MEDS: FUROSEMIDE 40 MG TAB PO SCH (08:24)
[2019-07-27] MEDS: OMEPRAZOLE 20 MG CAP PO SCH (08:24)
[2019-07-27] MEDS: VITAMIN D 50,000 UNITS CAPSULE (ERGOCALCIFEROL 1.25MG) PO SCH (08:24)
[2019-07-27] MEDS: POTASSIUM CHLORIDE 10 MEQ SR TABLET PO SCH ×2 (08:24→20:05)
[2019-07-27] MEDS: HYDROCORTISONE 1% CREAM 30 GM TOP SCH (08:25)
--- NOTE | 2019-07-27 08:59 | REP ---
Clinical: Pleural effusion. Technique: PA and lateral. Comparison: 07/26/2019. Findings: Moderate bibasilar opacities and pleural effusions (right greater than left) again noted and essentially unchanged. Ovoid density in the lateral aspect of the right mid lung zone remains stable and may represent small amount of trapped fluid within the fissure. No new acute process identified. Mediastinum and cardiac silhouette are stable. Dual lead pacemaker and right PICC line again noted. Skeletal structures are intact. Impression: 1. Bibasilar opacities and pleural effusions (right greater than left) are essentially unchanged. 2. No new acute process identified. Electronically Signed by Mariusz Mackenzie MD 07/27/2019 08:51 A
[2019-07-27] MEDS: DARBEPOETIN 100 MCG/0.5 ML *NON-DIALYSIS* SYRINGE (J0881) SC SCH (09:00)
[2019-07-27 11:36] VITALS: BP 142/81
[2019-07-27 15:38] VITALS: BP 160/85
--- NOTE | 2019-07-27 19:45 | IPNPDOC ---
Date Seen The patient was seen on 07/27/19. Progress Note SUBJECTIVE: 84-year-old male with past medical history of congestive heart failure, atrial fibrillation on anticoagulation, hypertension, who was admitted for acute on chronic kidney injury and recurrent right pleural effusion. Patient was evaluated by nephrology, renal function has improved and currently at baseline. Patient was evaluated by thoracic surgery and had a chest tube placed which was removed yesterday. Chest x-ray this morning shows stable right pleural effusion, we'll continue to monitor for reaccumulation. Patient is seen in the morning, comfortable in chair, without any complaints, denies any shortness of breath, chest pain, nausea, vomiting, cough, diarrhea or constipation. 07/24/19 No acute events overnight, comfortable in chair, working w/ PT, has poor understanding and recollection, wishes to go home but easily persuaded (for the time being) with regards to placement and need/management of PleurX. He has no complaints at this time, denies dyspnea, cough, CP, N/V/D or abdominal pain. 07/25/19 Patient seen in the morning, comfortable in chair, without any complaints at this time, awaiting insurance approval for rehabilitation placement. 07/26/19 Patient seen in the morning, no acute events overnight, without any complaints, continues to report that he wants to go home, but upon reminder that he needs to go to rehabilitation he is easily agreeable, at least temporarily. 07/27/19 No acute events overnight, comfortable in chair, unchanged from yesterday, without complaints at this time, awaiting transfer to [facility] on Monday. 10 point review of system is negative except for above PHYSICAL EXAMINATION: VITAL SIGNS: Please see below. GENERAL: No distress HEENT: Normocephalic, atraumatic, moist mucous membranes NECK: Supple CARDIOVASCULAR EXAMINATION: S1, S2, no murmurs RESPIRATORY EXAMINATION: Bibasilar rhonchi, diminished in RLL, no wheezing ABDOMINAL EXAMINATION: Soft, nontender, nondistended, positive bowel sounds EXTREMITIES: Range of motion intact SKIN: No rash NEUROLOGICAL EXAMINATION: no focal deficits PSYCHIATRIC EXAMINATION: Calm and cooperative LABORATORY DATA, IMAGING STUDIES, MICROBIOLOGY: Please see below. ASSESSMENT AND PLAN: 84-year-old male with multiple medical comorbidities admitted for acute kidney injury, recurrent right pleural effusion. PROBLEMS: 1. Acute on chronic kidney disease: Now resolved, creatinine back to baseline. 2. Recurrent right pleural effusion: Status post chest tube placement which has now been removed, CXR shows slow worsening in pleural effusion, need for PleurX catheter placement as per thoracic surgery, continue Lasix 40 mg PO daily. 3. Physical deconditioning: Will require rehabilitation followed by placement, community mental health social worker has arranged for transfer to [facility] on Monday. 4. Atrial fibrillation: Continue Eliquis for anticoagulation and atenolol for rate control DVT prophylaxis: on Eliquis GI prophylaxis: Home PPI VS, I&O, 24H, Fishbone Vital Signs/I&O Vital Signs Date Time Temp Pulse Resp B/P (MAP) Pulse Ox O2 Delivery O2 Flow Rate FiO2 07/27/19 15:38 97.0 88 18 160/85 (110) 98 Room Air I&O- Last 24 Hours up to 6 AM 07/27/19 06:00 Intake Total 760 ml Output Total 1125 ml Balance -365 ml Laboratory Data Microbiology Microbiology 07/18/19 Acid Fast Stain, Received Pending 07/18/19 Mycobacterial Culture, Received Pending 07/18/19 Fungal Smear, Received Pending 07/18/19 Fungal Culture, Received Pending 07/18/19 Gram Stain - Final, Complete 07/18/19 Anaerobic Culture - Final, Complete 07/18/19 Body Fluid Culture - Final, Complete MARIEL VEGAS MD Jul 27, 2019 19:45
[2019-07-27 20:00] VITALS: BP 130/86
[2019-07-27] MEDS: allopurinoL 300 MG TAB PO SCH (20:04)
[2019-07-27] MEDS: traZODone 50 MG TAB PO SCH (20:05)
[2019-07-27] MEDS: atenoloL 50 MG TAB PO SCH (20:06)
[2019-07-28] VITALS (8 sets, daily range): BP systolic 133–161; BP diastolic 78–91
[2019-07-28] MEDS: SODIUM CHLORIDE 0.9% INJ 10 ML SYR IV SCH ×2 (05:02→17:08)
--- NOTE | 2019-07-28 07:51 | REP ---
Clinical: Pleural effusion. Follow-up. Technique: PA and lateral. Comparison: 07/27/2019, 07/26/2019. Findings: Bibasilar opacities and small/moderate pleural effusions essentially unchanged from prior examination. Mediastinum and cardiac silhouette stable including dual lead pacemaker. Right PICC line again identified with tip in the SVC remains stable. No obvious pneumothorax. No obvious new pleuroparenchymal process appreciated. Impression: No change from prior examination. Electronically Signed by Mariusz Mackenzie MD 07/28/2019 07:42 A
--- NOTE | 2019-07-28 08:28 | IPN ---
DATE OF SERVICE: 07/27/2019 Mr. Medrano is in bed breathing comfortably. There is no chest discomfort, chest pain. His vital signs show a maximum temperature (Tmax) of 97.5 with a heart rate that ranges between 97 and 88 in atrial fibrillation with a respiratory rate of 18-19 without the use of accessory muscles who is 96% saturated on room air and whose blood pressure is ranging between 130/86 to 160/85. His intake and output over the past 24 hours has been recorded as 760 in and 1175 out for a negativity of 400 mL. Weight today is 72 kg compared to 72.9 kg yesterday. On physical examination, his lungs show bibasilar rales with the right greater than the left. Percussion note is still full to the diaphragm. Cardiac examination shows a 2/6 systolic murmur at the left lower sternal border and apex. I cannot feel his point of maximum impulse (PMI). S1 and S2 are normal. Abdomen is soft, nontender. Bowel sounds are positive. There is no hepatomegaly. No costovertebral angle (CVA) tenderness. Extremities show no pretibial edema. No calf tenderness. No differential swelling of the upper extremities. Skin is warm, dry, and perfused without cyanosis or mottling, including that of the nail beds and the knees. Neck is supple. There is no jugular venous distention. No subcutaneous emphysema. Trachea is midline. Mouth shows his mucous membranes to be pink and moist. Lips and commissures without lesions. There is no thrush. Eyes show his pupils to be equal and reactive. Extraocular motions intact. Sclerae anicteric. Neurologic shows II-XII intact, along with gross motor and gross sensation intact. Gait is not tested. Psychiatric shows him to be awake, alert, oriented times three, with appropriate mood and affect and conversational. His chest x-ray today shows marginally larger right pleural effusion. It is, however, not large enough to use as a target for a PleurX catheter. IMPRESSION: 1. Recurrent right pleural effusion. 2. Atrial fibrillation. 3. Right heart failure. 4. Hypertension. 5. Diastolic heart failure. 6. Chronic renal disease. 7. Sick sinus syndrome, status post pacemaker. 8. Peripheral vascular disease. 9. Cerebrovascular disease. 10. History of prostate cancer with radiation therapy. 11. History of renal stones. 12. Cirrhosis based on the appearance of liver on CT scan. 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 PLAN AND DISCUSSION: His pleural effusion is starting to return, although there is not enough fluid there for a proper target. The nursing staff tells me that he may be transferred to [facility] come 07/31/2019. Hopefully, the fluid will return sufficiently so I can put the PleurX catheter in prior to that. However, if not, I will have to continue to monitor him at the [facility] and place it as an outpatient. So long as he is going to a care facility, a PleurX catheter would be safe in him.
[2019-07-28] MEDS: OMEPRAZOLE 20 MG CAP PO SCH (08:33)
[2019-07-28] MEDS: APIXABAN 2.5 MG TAB (ELIQUIS) PO SCH ×2 (08:33→20:50)
[2019-07-28] MEDS: FUROSEMIDE 40 MG TAB PO SCH (08:33)
[2019-07-28] MEDS: HYDROCORTISONE 1% CREAM 30 GM TOP SCH (08:33)
[2019-07-28] MEDS: POTASSIUM CHLORIDE 10 MEQ SR TABLET PO SCH ×2 (08:33→20:50)
[2019-07-28] MEDS: DOCUSATE SODIUM 100 MG CAP PO SCH ×2 (08:33→20:50)
--- NOTE | 2019-07-28 11:36 | IPN ---
DATE: 07/28/2019 Mr. Medrano is again breathing comfortably. He is not coughing and there is no shortness of breath. His vital signs show a maximum temperature (T-max) of 97.5 with a heart rate that ranges between 93 and 63 in atrial fibrillation with a respiratory rate that is constant at 18 who is 99 to 91% saturated on room air and his blood pressures range between 130/86 to 141/80. His intake and output over the past 24 hours has been recorded as 1270 in and 1550 out for a negativity of 280 mL. He has put out 1550 mL in urine output. He is down to 40 mg of Lasix a day by mouth. Weight today is 67 kg compared to 72 kg yesterday. 67 seems a bit on the low side considering that he has been in the 74 to 73 kg range last week. On physical examination, he has equal breath sounds on either side. There is no E/A egophony. He does have a dull percussion note, however, at the very base of the right lung. Cardiac exam shows a systolic ejection murmur at the left lower sternal border apex of 2/6. S1 and S2 are normal. He has an irregular rate and rhythm. I cannot feel his point of maximum impulse (PMI). Abdomen is soft and nontender. Bowel sounds are positive. There is no hepatomegaly. No costovertebral angle (CVA) tenderness. Extremities show no pretibial edema with no calf tenderness. No differential swelling of the upper extremities. Skin is warm, dry and perfused without cyanosis or mottling including that of the nail beds and knees. Neck is supple. There is no jugular venous distention. No subcutaneous emphysema. Trachea is midline. Mouth shows his mucous membranes to be pink and moist. Lips and commissures are without lesions. There is no thrush. Eyes show his pupils to be equal and reactive. Extraocular movements intact. Sclerae nonicteric. Neurologic shows II-XII intact along with gross motor and gross sensation intact. Gait is not tested. Psychiatric showed him to be awake, alert and conversational. His chest x-ray today shows an increasing amount of pleural fluid in the right costophrenic angle on the lateral film. However, there is not enough for a good target to place a PleurX catheter at this time. I will continue to monitor his chest x-rays.
--- NOTE | 2019-07-28 18:28 | IPNPDOC ---
Date Seen The patient was seen on 07/28/19. Progress Note SUBJECTIVE: 84-year-old male with past medical history of congestive heart failure, atrial fibrillation on anticoagulation, hypertension, who was admitted for acute on chronic kidney injury and recurrent right pleural effusion. Patient was evaluated by nephrology, renal function has improved and currently at baseline. Patient was evaluated by thoracic surgery and had a chest tube placed which was removed yesterday. Chest x-ray this morning shows stable right pleural effusion, we'll continue to monitor for reaccumulation. Patient is seen in the morning, comfortable in chair, without any complaints, denies any shortness of breath, chest pain, nausea, vomiting, cough, diarrhea or constipation. 07/24/19 No acute events overnight, comfortable in chair, working w/ PT, has poor understanding and recollection, wishes to go home but easily persuaded (for the time being) with regards to placement and need/management of PleurX. He has no complaints at this time, denies dyspnea, cough, CP, N/V/D or abdominal pain. 07/25/19 Patient seen in the morning, comfortable in chair, without any complaints at this time, awaiting insurance approval for rehabilitation placement. 07/26/19 Patient seen in the morning, no acute events overnight, without any complaints, continues to report that he wants to go home, but upon reminder that he needs to go to rehabilitation he is easily agreeable, at least temporarily. 07/27/19 No acute events overnight, comfortable in chair, unchanged from yesterday, without complaints at this time, awaiting transfer to [facility] on Monday. 07/28/19 Acute events overnight, laying comfortably in bed, without any new complaints, denies any dyspnea or cough at this time. 10 point review of system is negative except for above PHYSICAL EXAMINATION: VITAL SIGNS: Please see below. GENERAL: No distress HEENT: Normocephalic, atraumatic, moist mucous membranes NECK: Supple CARDIOVASCULAR EXAMINATION: S1, S2, no murmurs RESPIRATORY EXAMINATION: Bibasilar rhonchi, diminished in RLL, no wheezing ABDOMINAL EXAMINATION: Soft, nontender, nondistended, positive bowel sounds EXTREMITIES: Range of motion intact SKIN: No rash NEUROLOGICAL EXAMINATION: no focal deficits PSYCHIATRIC EXAMINATION: Calm and cooperative LABORATORY DATA, IMAGING STUDIES, MICROBIOLOGY: Please see below. ASSESSMENT AND PLAN: 84-year-old male with multiple medical comorbidities admitted for acute kidney injury, recurrent right pleural effusion. PROBLEMS: 1. Acute on chronic kidney disease: Now resolved, creatinine back to baseline. 2. Recurrent right pleural effusion: Status post chest tube placement which has now been removed, CXR shows slowly worsening pleural effusion, need for PleurX catheter placement as per thoracic surgery, continue Lasix 40 mg PO daily. 3. Physical deconditioning: Will require rehabilitation followed by placement, administrator social welfare has arranged for transfer to [facility] on Monday. 4. Atrial fibrillation: Continue Eliquis for anticoagulation and atenolol for rate control DVT prophylaxis: on Eliquis GI prophylaxis: Home PPI VS, I&O, 24H, Fishbone Vital Signs/I&O Vital Signs Date Time Temp Pulse Resp B/P (MAP) Pulse Ox O2 Delivery O2 Flow Rate FiO2 07/28/19 15:46 97.0 99 18 133/91 (105) 95 Room Air I&O- Last 24 Hours up to 6 AM 07/28/19 06:00 Intake Total 1270 ml Output Total 1650 ml Balance -380 ml Laboratory Data Microbiology Microbiology 07/18/19 Acid Fast Stain, Received Pending 07/18/19 Mycobacterial Culture, Received Pending 07/18/19 Fungal Smear, Received Pending 07/18/19 Fungal Culture, Received Pending 07/18/19 Gram Stain - Final, Complete 07/18/19 Anaerobic Culture - Final, Complete 07/18/19 Body Fluid Culture - Final, Complete MARIEL VEGAS MD Jul 28, 2019 18:28
[2019-07-28] MEDS: allopurinoL 300 MG TAB PO SCH (20:50)
[2019-07-28] MEDS: traZODone 50 MG TAB PO SCH (20:50)
[2019-07-28] MEDS: atenoloL 50 MG TAB PO SCH (20:51)
[2019-07-29 04:00] VITALS: BP 157/85
[2019-07-29] MEDS: SODIUM CHLORIDE 0.9% INJ 10 ML SYR IV SCH (05:30)
[2019-07-29 06:06] LABS: HEMATOCRIT 32.2 % (42.0-52.0); MEAN CORPUSCULAR HEMOGLOBIN 33.3 pg (27.0-33.0); MEAN CORPUSCULAR HGB CONC 31.1 g/dl (32.0-36.5); MEAN CORPUSCULAR VOLUME 107.3 fl (80.0-96.0); PLATELET COUNT, AUTOMATED 252 10^3/uL (150-450); WHITE BLOOD COUNT 3.6 10^3/uL (4.0-10.0)
[2019-07-29 06:26] LABS: CALCIUM LEVEL 8.2 MG/DL (8.8-10.2); CREATININE FOR GFR 1.4 MG/DL (0.70-1.30); GLOMERULAR FILTRATION RATE 51.3 (>35); POTASSIUM SERUM 3.8 MEQ/L (3.5-5.1)
[2019-07-29 08:00] VITALS: BP 149/86
[2019-07-29] MEDS: FUROSEMIDE 40 MG TAB PO SCH (09:02)
[2019-07-29] MEDS: DOCUSATE SODIUM 100 MG CAP PO SCH (09:02)
[2019-07-29] MEDS: POTASSIUM CHLORIDE 10 MEQ SR TABLET PO SCH (09:02)
[2019-07-29] MEDS: OMEPRAZOLE 20 MG CAP PO SCH (09:03)
[2019-07-29] MEDS: APIXABAN 2.5 MG TAB (ELIQUIS) PO SCH (09:03)
[2019-07-29] MEDS: HYDROCORTISONE 1% CREAM 30 GM TOP SCH (09:05)
--- NOTE | 2019-07-29 09:57 | REP ---
Chest x-ray: Two views. History: Pleural effusion. Comparison study: July 28, 2019. Right-sided PICC line and a left transvenous pacemaker leads are again noted. Monitoring electrodes are seen. There is slight pleural thickening and pleural angle blunting on the right persisting. There is improving fissural fluid. No new infiltrate. Electronically Signed by Hollis Weems MD 07/29/2019 09:48 A
--- NOTE | 2019-07-29 12:27 | DS.PDOC ---
Discharge Summary General Date of Admission Jul 10, 2019 at 23:58 Date of Discharge 07/29/19 Attending Physician: MARIEL VEGAS MD Discharge Summary PROCEDURES PERFORMED DURING STAY: None. ADMITTING DIAGNOSES: 1. Recurrent pleural effusion, acute kidney injury. DISCHARGE DIAGNOSES: 1. Recurrent pleural effusion, acute kidney injury. COMPLICATIONS/CHIEF COMPLAINT: Acute Renal Failure. HISTORY OF PRESENT ILLNESS: 84-year-old male with multiple medical comorbidities was admitted for acute kidney injury and recurrent pleural effusion. Patient underwent chest tube placement, which was subsequently removed. He was evaluated by thoracic surgery and was considered for Pleurx placement, but his follow-up chest x-rays did not show significant fluid reticulation and Pleurx catheter was not placed. Patient will follow up outpatient with thoracic surgery for reconsideration. Patient's renal function improved and has returned back to baseline. Patient was evaluated by physical therapy and rehabilitation/was recommended, patient has been accepted and will be discharged to [facility] later today. Patient was on prolonged antibiotics for bacteremia/endocarditis, ceftriaxone treatment was completed, PICC line will be removed prior to discharge. HOSPITAL COURSE: As above. DISCHARGE MEDICATIONS: Please see below. ALLERGIES: Please see below. PHYSICAL EXAMINATION: VITAL SIGNS: Please see below. GENERAL: No distress HEENT: Normocephalic, atraumatic, moist mucous membranes NECK: Supple CARDIOVASCULAR EXAMINATION: S1, S2, no murmurs RESPIRATORY EXAMINATION: Bibasilar rhonchi, diminished in RLL, no wheezing ABDOMINAL EXAMINATION: Soft, nontender, nondistended, positive bowel sounds EXTREMITIES: Range of motion intact SKIN: No rash NEUROLOGICAL EXAMINATION: no focal deficits PSYCHIATRIC EXAMINATION: Calm and cooperative LABORATORY DATA: Please see below. IMAGING: Chest x-ray with slow progression of right pleural effusion PROGNOSIS: Fair ACTIVITY: As tolerated. DIET: Cardiac DISCHARGE PLAN: Follow with thoracic surgery, nephrology and PCP 1-2 weeks DISPOSITION: [facility]. DISCHARGE INSTRUCTIONS: 1. As above. DISCHARGE CONDITION: Stable. TIME SPENT ON DISCHARGE: Greater than 34 minutes. Vital Signs/I&Os Vital Signs Date Time Temp Pulse Resp B/P (MAP) Pulse Ox O2 Delivery O2 Flow Rate FiO2 07/29/19 08:00 96.5 92 20 149/86 (107) 98 Room Air I&O- Last 24 Hours up to 6 AM 07/29/19 06:00 Intake Total 780 ml Output Total 1950 ml Balance -1170 ml Laboratory Data Labs 24H Laboratory Tests 2 07/29/19 05:29: Nucleated Red Blood Cells % (auto) 0.0, Anion Gap 6L, Glomerular Filtration Rate 51.3, Calcium Level 8.2L CBC/BMP Laboratory Tests 07/29/19 05:29 Discharge Medications Scheduled Acetaminophen (Acetaminophen) 500 Mg Tablet, 500 MG PO QHS, (Reported) Allopurinol (Zyloprim) 300 Mg Tablet, 300 MG PO QHS, (Reported) Apixaban (Eliquis) 2.5 Mg Tablet, 2.5 MG PO BID, (Reported) Atenolol (Atenolol) 50 Mg Tablet, 50 MG PO QHS, (Reported) Diltiazem HCl (Cartia Xt) 240 Mg Cap, 240 MG PO DAILY, (Reported) Furosemide (Furosemide) 40 Mg Tablet, 40 MG PO BID, (Reported) 0900, 1700 Hydrocortisone (Hydrocortisone) 28 Gm Cream..g., 1 DOSE TOP DAILY, (Reported) APPLY TO LEFT HAND Omeprazole (Omeprazole) 20 Mg Capsule.dr, 20 MG PO DAILY, (Reported) Potassium Chloride (Potassium Chloride) 10 Meq Tab.er.prt, 10 MEQ PO Q12H, (Reported) Trazodone HCl (Trazodone HCl) 50 Mg Tab, 50 MG PO QHS, (Reported) Scheduled PRN Bisacodyl (Dulcolax) 10 Mg Supp.rect, 10 MG [place] DAILY PRN for CONSTIPATION, (Reported) EVERY DAY NEEDED AT 0600 IF NO RESULTS FROM MILK OF MAGNESIA Magnesium Hydroxide (Milk of Magnesia) 400 Mg/5 Ml Oral.susp, 30 ML PO Q2D PRN for CONSTIPATION, (Reported) GIVE AT 1800 IF NO BM IN 48 HOURS Sodium Phosphate,[place]-Dibasic (Fleet Enema) 133 Ml Enema, 1 OMKAR [place] DAILY PRN for CONSTIPATION, (Reported) GIVE IF NO RESULTS FROM DULCOLAX SUPPOSITORY Allergies Coded Allergies: No Known Allergies (Unverified , 09/04/18) MARIEL VEGAS MD Jul 29, 2019 12:26
== END 2019-07-29 13:52 | DRG 187 ==
LOC: M ED 20:28 → M ED INP 23:58 → M PCU 07-11 06:25
PROVIDERS: ADMIT Internal Medicine; ATTEND Internal Medicine
PROC: 0W9930Z Drainage of Right Pleural Cavity with Drainage Device, Percutaneous Approach (ICD-10-PCS; principal; 2019-07-18 13:00)
DX: J90 Pleural effusion, not elsewhere classified (principal); I50.32 Chronic diastolic (congestive) heart failure; N17.9 Acute kidney failure, unspecified; I13.0 Hypertensive heart and chronic kidney disease with heart failure and stage 1 through stage 4 chronic kidney disease, or unspecified chronic kidney disease; I48.20 Chronic atrial fibrillation, unspecified; N25.81 Secondary hyperparathyroidism of renal origin; J98.11 Atelectasis; B37.41 Candidal cystitis and urethritis; I38 Endocarditis, valve unspecified; E87.1 Hypo-osmolality and hyponatremia; R78.81 Bacteremia; E87.0 Hyperosmolality and hypernatremia; N30.00 Acute cystitis without hematuria; I49.5 Sick sinus syndrome; Z95.0 Presence of cardiac pacemaker; I25.10 Atherosclerotic heart disease of native coronary artery without angina pectoris; I73.9 Peripheral vascular disease, unspecified; Z96.651 Presence of right artificial knee joint; Z87.891 Personal history of nicotine dependence; N18.3 Chronic kidney disease, stage 3 (moderate); E27.8 Other specified disorders of adrenal gland; D72.829 Elevated white blood cell count, unspecified; R00.0 Tachycardia, unspecified; D63.1 Anemia in chronic kidney disease; Z79.01 Long term (current) use of anticoagulants; Z79.899 Other long term (current) drug therapy; M10.9 Gout, unspecified; K21.9 Gastro-esophageal reflux disease without esophagitis; I95.9 Hypotension, unspecified; M54.9 Dorsalgia, unspecified; E87.6 Hypokalemia; R53.1 Weakness; Z87.442 Personal history of urinary calculi; Z92.3 Personal history of irradiation; Z85.46 Personal history of malignant neoplasm of prostate; K74.60 Unspecified cirrhosis of liver; I50.810 Right heart failure, unspecified; I67.9 Cerebrovascular disease, unspecified

== ENCOUNTER → 2019-08-06 | Outpatient (REF) ==
[~2019-08-06] MED LIST changes: +CEFA1INJ5 IV; +DULC10SU2 PR; +FLEEENE12 PR; +MILKSUS3 PO; +TUBE5INJ ID
[2019-08-06 08:09] LABS: ALBUMIN 1.9 GM/DL (3.2-5.2); CREATININE FOR GFR 1.73 MG/DL (0.70-1.30); GLOMERULAR FILTRATION RATE 40.2 (>35); PHOSPHORUS LEVEL 3.7 MG/DL (2.5-4.9); POTASSIUM SERUM 4.1 MEQ/L (3.5-5.1)
== END ==
LOC: SKLAB4 08:46
PROVIDERS: ATTEND Internal Medicine
DX: N18.9 Chronic kidney disease, unspecified (principal)

== ENCOUNTER → 2019-08-13 | Outpatient (REF) ==
[2019-08-13 07:55] LABS: HEMATOCRIT 32.8 % (42.0-52.0); HEMOGLOBIN 10.1 g/dl (13.5-17.5); MEAN CORPUSCULAR HEMOGLOBIN 32.3 pg (27.0-33.0); MEAN CORPUSCULAR HGB CONC 30.8 g/dl (32.0-36.5); MEAN CORPUSCULAR VOLUME 104.8 fl (80.0-96.0); PLATELET COUNT, AUTOMATED 236 10^3/uL (150-450); RED BLOOD COUNT 3.13 10^6/uL (4.30-6.10); WHITE BLOOD COUNT 5.7 10^3/uL (4.0-10.0)
[2019-08-13 08:22] LABS: CALCIUM LEVEL 8.3 MG/DL (8.8-10.2); CREATININE FOR GFR 1.81 MG/DL (0.70-1.30); GLOMERULAR FILTRATION RATE 38.1 (>35); PHOSPHORUS LEVEL 3.8 MG/DL (2.5-4.9); POTASSIUM SERUM 4.3 MEQ/L (3.5-5.1)
== END ==
LOC: SKLAB5 11:20
PROVIDERS: ATTEND Internal Medicine
DX: I50.9 Heart failure, unspecified (principal)

== ENCOUNTER → 2019-08-20 | Outpatient (REF) ==
[2019-08-20 11:46] LABS: ALBUMIN 2.7 GM/DL (3.2-5.2); CALCIUM LEVEL 8.9 MG/DL (8.8-10.2); CREATININE FOR GFR 1.94 MG/DL (0.70-1.30); GLOMERULAR FILTRATION RATE 35.2 (>35); PHOSPHORUS LEVEL 3.9 MG/DL (2.5-4.9); POTASSIUM SERUM 3.6 MEQ/L (3.5-5.1)
--- NOTE | 2019-08-21 04:18 | REP ---
Clinical: Pleural effusion. Technique: PA and lateral. Comparison: 07/29/2019. Findings: Pleuroparenchymal changes at the bilateral lung bases (right greater than left) suggest small pleural effusions and infiltrate/atelectasis (right greater than left). Visualized mediastinum and cardiac silhouette are stable. Dual lead pacemaker again noted. No pneumothorax. Skeletal structures are intact. Impression: Bibasilar pleuroparenchymal changes (right greater than left) suggesting elements of infiltrate/atelectasis and pleural effusion. Electronically Signed by Mariusz Mackenzie MD 08/21/2019 04:10 A
== END ==
LOC: SKLAB5 07:41
PROVIDERS: ATTEND Internal Medicine
DX: N19 Unspecified kidney failure (principal)

== ENCOUNTER → 2019-08-28 | Outpatient (REF) | payer MEDICARE ==
[2019-08-28 12:24] LABS: CALCIUM LEVEL 8.9 MG/DL (8.8-10.2); CREATININE FOR GFR 1.81 MG/DL (0.70-1.30); GLOMERULAR FILTRATION RATE 38.1 (>35); POTASSIUM SERUM 4.2 MEQ/L (3.5-5.1)
== END ==
LOC: M SHH 11:21
PROVIDERS: ATTEND Internal Medicine
DX: I50.42 Chronic combined systolic (congestive) and diastolic (congestive) heart failure (principal)

== ENCOUNTER → 2019-09-03 | Outpatient (CLI) | payer MEDICARE ==
--- NOTE | 2019-09-03 12:49 | REPPI ---
CHEST, TWO VIEWS: Two views of the chest performed and compared to multiple prior studies, most recently 08/20/2019. Bibasilar pleural and parenchymal opacities remain stable. The upper lobes remain clear. There is a calcified granuloma in the left base. The heart and mediastinum are unchanged. Left dual-lead pacemaker is again noted. IMPRESSION: Stable exam. Electronically Signed by Neel Dias MD 09/03/2019 12:54 P
== END ==
LOC: M PLAIMG 12:19
PROVIDERS: ATTEND Internal Medicine
DX: J90 Pleural effusion, not elsewhere classified (principal)

== ENCOUNTER → 2019-09-12 | Outpatient (REF) | payer MEDICARE ==
[2019-09-12 15:57] LABS: BASO # 0.1 10^3/uL (0.0-0.2); BASO % 0.8 % (0.0-1.0); EOS # 0.1 10^3/uL (0.0-0.5); EOS % 1.8 % (0.0-3.0); HEMATOCRIT 32.6 % (42.0-52.0); HEMOGLOBIN 10.1 g/dl (13.5-17.5); LYMPH # 0.6 10^3/uL (1.5-5.0); LYMPH % 10.1 % (24.0-44.0); MEAN CORPUSCULAR HEMOGLOBIN 32.1 pg (27.0-33.0); MEAN CORPUSCULAR VOLUME 103.5 fl (80.0-96.0); MONO # 0.6 10^3/uL (0.0-0.8); MONO % 10.2 % (0.0-5.0); NEUTROPHILS # 4.6 10^3/uL (1.5-8.5); NEUTROPHILS % 76.9 % (36.0-66.0); PLATELET COUNT, AUTOMATED 243 10^3/uL (150-450); RED BLOOD COUNT 3.15 10^6/uL (4.30-6.10)
[2019-09-12 16:22] LABS: CALCIUM LEVEL 8.3 MG/DL (8.8-10.2); CREATININE FOR GFR 2.46 MG/DL (0.70-1.30); GLOMERULAR FILTRATION RATE 26.8 (>35); POTASSIUM SERUM 4.1 MEQ/L (3.5-5.1)
== END ==
LOC: M SHH 14:57
PROVIDERS: ATTEND Internal Medicine
DX: J90 Pleural effusion, not elsewhere classified (principal); I13.0 Hypertensive heart and chronic kidney disease with heart failure and stage 1 through stage 4 chronic kidney disease, or unspecified chronic kidney disease

== ENCOUNTER → 2019-10-03 | Outpatient (REF) | payer MEDICARE ==
[2019-10-03 18:10] LABS: FOLATE 17.9 NG/ML
== END ==
LOC: M LAB REF 16:58
PROVIDERS: ATTEND Internal Medicine
DX: R41.3 Other amnesia (principal); J90 Pleural effusion, not elsewhere classified; I51.7 Cardiomegaly; Z95.0 Presence of cardiac pacemaker

== ENCOUNTER → 2019-10-03 | Outpatient (CLI) | payer MEDICARE ==
--- NOTE | 2019-10-03 13:38 | REP ---
REASON FOR EXAM: Followup right pleural effusion. COMPARISON: Multiple, the latest 09/03/2019. Dual-chamber bipolar pacemaker device, status quo. Mild cardiomegaly, unchanged. Patchy right basilar opacities, stable with cardiophrenic angle and costophrenic angle blunting, status quo. No new abnormal opacities. Thickening of the major fissure, unchanged. No changes from 09/03/2019. Findings as described above. Electronically Signed by Grzegorz Lemons DO 10/03/2019 02:33 P
== END ==
LOC: M WUC 10:21
PROVIDERS: ATTEND Internal Medicine
DX: J90 Pleural effusion, not elsewhere classified (principal); I51.7 Cardiomegaly; Z95.0 Presence of cardiac pacemaker

== ENCOUNTER → 2020-03-11 | Outpatient (REF) | payer MEDICARE | LOC: M LAB REF 17:04 | PROVIDERS: ATTEND Physician Assistant | DX: L82.1 Other seborrheic keratosis (principal) | CPT/HCPCS: 11102; 17110; 88305; G0463 ==

== ENCOUNTER → 2021-04-19 | Outpatient (REF) | payer MEDICARE ==
[~2021-04-19] MED LIST changes: -HYDR1CRE9 TOP; +LOSA50TA28 PO; -LOSA50TA88 PO; +POTA-149 PO; -POTA10TA16 PO; +SFHHYD1CR TOP
== END ==
LOC: M LAB REF 16:48
PROVIDERS: ATTEND Internal Medicine Nephrology
DX: E83.42 Hypomagnesemia (principal)

== ENCOUNTER → 2021-04-29 | Outpatient (CLI) | payer MEDICARE ==
[~2021-04-29] MED LIST changes: -LOSA50TA28 PO; +LOSA50TA88 PO; -POTA-149 PO; +POTA10TA16 PO
--- NOTE | 2021-04-29 10:15 | REP ---
INDICATION: PLEURAL EFFUSION COMPARISON: 10/03/2019 TECHNIQUE: PA and lateral. FINDINGS: Mediastinum and cardiac silhouette are stable. Left hemithorax is clear. Pleuroparenchymal changes involving the right base are similar to prior examinations and may represent chronic change although subtle superimposed acute process including small pleural effusion and atelectasis cannot be excluded. IMPRESSION: 1. Findings appear relatively chronic/stable as compared with 10/03/2019. 2. Subtle superimposed acute right basilar process cannot definitively be excluded and should be correlated with physical examination/auscultation. <Electronically signed by Mariusz Mackenzie > 04/29/21 101
== END ==
LOC: M WUC 09:47
PROVIDERS: ATTEND Internal Medicine Nephrology
DX: J90 Pleural effusion, not elsewhere classified (principal)

== ENCOUNTER → 2021-11-09 | Outpatient (REF) | payer MEDICARE ==
[~2021-11-09] MED LIST changes: +LOSA50TA28 PO; -LOSA50TA88 PO; +POTA-149 PO; -POTA10TA16 PO
[2021-11-09 21:12] LABS: URIC ACID 4.2 MG/DL (3.5-7.2)
[2021-11-10 00:30] LABS: PTH INTACT 46.7 PG/ML (18.5-88.0)
== END ==
LOC: M LAB REF 17:39
PROVIDERS: ATTEND Internal Medicine
DX: N18.4 Chronic kidney disease, stage 4 (severe) (principal); M1A.30X0 Chronic gout due to renal impairment, unspecified site, without tophus (tophi)

== ENCOUNTER 2021-11-25 13:11 | Day surgery (SDC) | payer MEDICARE ==
[~2021-11-25] VITALS: Ht 177.8 cm; Wt 77.0 kg
[~2021-11-25 13:11] MED LIST changes: +ALLO10TA PO; +ROCA0.25 PO
[2021-11-25] MEDS ORDERED: LR 1,000 ML IV SCH (13:20)
[2021-11-25] MEDS ORDERED: ceFAZolin SOD 2 GM in IV 1 EA IV ONE (14:50)
[2021-11-25] MEDS ORDERED: LIDOCAINE 1% SDV 30ML VIAL As Ordered ONE (15:35)
[2021-11-25] MEDS ORDERED: propofoL 200 MG/20 ML VIAL As Ordered ONE (15:40)
[2021-11-25] MEDS ORDERED: LIDOCAINE 2% 100MG/5ML SDV (FOR ANES.) As Ordered ONE (15:40)
[2021-11-25] MEDS ORDERED: fentaNYL 100 MCG/2 ML INJECTION As Ordered ONE (15:54)
[2021-11-25] MEDS ORDERED: ceFAZolin 1GM VIAL (J0690 PER 500MG) As Ordered ONE (16:22)
[2021-11-25 17:35] VITALS: BP 132/76
== END 2021-11-25 17:48 | disposition home or self-care (01) ==
LOC: M SDC 13:11
PROVIDERS: ATTEND Internal Medicine Cardiovascular Disease
DX: Z45.010 Encounter for checking and testing of cardiac pacemaker pulse generator [battery] (principal); I49.5 Sick sinus syndrome; I48.21 Permanent atrial fibrillation; I11.0 Hypertensive heart disease with heart failure; I50.30 Unspecified diastolic (congestive) heart failure; R94.31 Abnormal electrocardiogram [ECG] [EKG]; G47.33 Obstructive sleep apnea (adult) (pediatric); N17.9 Acute kidney failure, unspecified; Z79.899 Other long term (current) drug therapy; Z79.01 Long term (current) use of anticoagulants; Z88.8 Allergy status to other drugs, medicaments and biological substances
CPT/HCPCS: 33207; 87426; 88300; C1786; J0690; J3010

== ENCOUNTER → 2022-07-26 | Outpatient (REF) | payer MEDICARE ==
[2022-07-26 17:44] LABS: PERCENT SATURATION 14.2 % (19.7-50.0)
== END ==
LOC: M LAB REF 17:13
PROVIDERS: ATTEND Internal Medicine Nephrology
DX: D50.9 Iron deficiency anemia, unspecified (principal)

== ENCOUNTER 2022-09-19 12:15 | Inpatient (IN) | payer MEDICARE ==
[~2022-09-19] VITALS: Ht 177.8 cm; Wt 76.9 kg
[2022-09-19 13:38] LABS: BASO # 0.1 10^3/uL (0.0-0.2); BASO % 0.8 % (0.0-1.0); EOS # 0.1 10^3/uL (0.0-0.5); EOS % 1.2 % (0.0-3.0); HEMATOCRIT 30.5 % (42.0-52.0); HEMOGLOBIN 9.3 g/dl (13.5-17.5); LYMPH # 0.5 10^3/uL (1.5-5.0); LYMPH % 6.4 % (24.0-44.0); MEAN CORPUSCULAR HEMOGLOBIN 30.9 pg (27.0-33.0); MEAN CORPUSCULAR HGB CONC 30.5 g/dl (32.0-36.5); MEAN CORPUSCULAR VOLUME 101.3 fl (80.0-96.0); MONO # 0.6 10^3/uL (0.0-0.8); MONO % 7.9 % (2.0-8.0); NEUTROPHILS # 6.5 10^3/uL (1.5-8.5); NEUTROPHILS % 83.3 % (36.0-66.0); PLATELET COUNT, AUTOMATED 175 10^3/uL (150-450); RED BLOOD COUNT 3.01 10^6/uL (4.30-6.10); WHITE BLOOD COUNT 7.8 10^3/uL (4.0-10.0)
[2022-09-19 14:06] LABS: BILIRUBIN,DIRECT 0.1 MG/DL (<0.4); BILIRUBIN,TOTAL 0.4 MG/DL (0.3-1.2); CALCIUM LEVEL 8.9 MG/DL (8.3-10.6); CREATININE FOR GFR 2.94 MG/DL (0.70-1.30); GLOMERULAR FILTRATION RATE 21.6 (>35); POTASSIUM SERUM 5.1 MMOL/L (3.5-5.1); TOTAL PROTEIN 6.5 G/DL (5.7-8.2)
[2022-09-19 14:07] LABS: THYROID STIMULATING HORMONE 1.313 uIU/ML (0.55-4.78); THYROXINE (T4) 7.8 UG/DL (4.5-10.9)
[2022-09-19] MEDS ORDERED: cefTRIAXone SOD 1 GM in D5W MINI-BAG PLUS 50 ML IV ONE (14:30)
[2022-09-19] MEDS ORDERED: AZITHROMYCIN 250MG TABLET PO ONE (14:30)
[2022-09-19] MEDS ORDERED: IPRATROPIUM 0.5MG/ALBUTEROL 2.5MG INH SOL UD 3ML (DUONEB) NEB ONE (14:30)
[2022-09-19] MEDS ORDERED: IPRATROPIUM 0.5MG/ALBUTEROL 2.5MG INH SOL UD 3ML (DUONEB) NEB PRN (16:25)
[2022-09-19] MEDS ORDERED: ALLO300T2 PO (16:38)
[2022-09-19] MEDS ORDERED: DOXY100T27 PO (16:38)
[2022-09-19] MEDS ORDERED: HYDR-643 PO (16:38)
[2022-09-19] MEDS ORDERED: ATOR1TAB21 PO (16:38)
[2022-09-19] MEDS ORDERED: DILT240C83 PO (16:38)
[2022-09-19] MEDS ORDERED: ATEN25TA PO (16:38)
[2022-09-19] MEDS ORDERED: HOME MED LIST COMPLETE! XX SCH (16:40)
[2022-09-19 17:25] VITALS: BP 103/64; TEMP 97.7; O2SAT 96
[2022-09-19] MEDS: IPRATROPIUM 0.5MG/ALBUTEROL 2.5MG INH SOL UD 3ML (DUONEB) NEB SCH (19:30)
[2022-09-19 20:00] VITALS: BP 104/64; TEMP 97.9; O2SAT 92
[2022-09-19] MEDS: atenoloL 25 MG TAB PO SCH (20:02)
[2022-09-19] MEDS: traZODone 50 MG TAB PO SCH (20:03)
[2022-09-19] MEDS: DOXYCYCLINE HYCLATE 100MG TABLET PO SCH (20:03)
[2022-09-19] MEDS: ATORVASTATIN 20 MG TAB PO SCH (20:03)
[2022-09-19] MEDS: APIXABAN 2.5 MG TAB (ELIQUIS) PO SCH (20:03)
[2022-09-20] MEDS: IPRATROPIUM 0.5MG/ALBUTEROL 2.5MG INH SOL UD 3ML (DUONEB) NEB SCH ×4 (01:57→20:25)
[2022-09-20] MEDS: ACETAMINOPHEN TAB 650MG DOSE (2X325MG) PO PRN (02:14)
[2022-09-20 06:00] VITALS: BP 122/90; TEMP 97.9; O2SAT 94
[2022-09-20 08:12] LABS: BASO # 0.1 10^3/uL (0.0-0.2); BASO % 0.8 % (0.0-1.0); EOS # 0.1 10^3/uL (0.0-0.5); EOS % 0.8 % (0.0-3.0); HEMATOCRIT 28.3 % (42.0-52.0); HEMOGLOBIN 8.5 g/dl (13.5-17.5); LYMPH # 0.6 10^3/uL (1.5-5.0); LYMPH % 7.5 % (24.0-44.0); MEAN CORPUSCULAR HEMOGLOBIN 30.7 pg (27.0-33.0); MEAN CORPUSCULAR VOLUME 102.2 fl (80.0-96.0); MONO # 0.8 10^3/uL (0.0-0.8); MONO % 10.3 % (2.0-8.0); NEUTROPHILS # 6.4 10^3/uL (1.5-8.5); NEUTROPHILS % 80.1 % (36.0-66.0); PLATELET COUNT, AUTOMATED 174 10^3/uL (150-450); RED BLOOD COUNT 2.77 10^6/uL (4.30-6.10)
[2022-09-20] MEDS: OMEPRAZOLE 20MG CAP PO SCH (08:34)
[2022-09-20] MEDS: APIXABAN 2.5 MG TAB (ELIQUIS) PO SCH ×2 (08:34→20:30)
[2022-09-20] MEDS: allopurinoL 300 MG TAB PO SCH (08:34)
[2022-09-20] MEDS: CALCITRIOL 0.25 MCG CAP (S0169) PO SCH (08:34)
[2022-09-20] MEDS: DOXYCYCLINE HYCLATE 100MG TABLET PO SCH ×2 (08:34→20:30)
[2022-09-20 08:41] LABS: CALCIUM LEVEL 8.5 MG/DL (8.3-10.6); CREATININE FOR GFR 3.04 MG/DL (0.70-1.30); GLOMERULAR FILTRATION RATE 20.8 (>35); POTASSIUM SERUM 4.7 MMOL/L (3.5-5.1)
[2022-09-20] MEDS ORDERED: FUROSEMIDE 40 MG TAB PO SCH (09:00)
[2022-09-20 11:30] LABS: PERCENT SATURATION 4.4 % (19.7-50.0)
[2022-09-20 11:33] LABS: FERRITIN 24.9 NG/ML (10.5-307.3)
[2022-09-20 11:36] LABS: FOLATE 11.6 NG/ML (>5.4)
[2022-09-20 14:00] VITALS: BP 110/72; TEMP 97.5; O2SAT 94
[2022-09-20] MEDS: cefTRIAXone SOD 1 GM in D5W MINI-BAG PLUS 50 ML IV SCH (15:32)
[2022-09-20 20:00] VITALS: BP 150/93; TEMP 98.1; O2SAT 94
[2022-09-20] MEDS: ATORVASTATIN 20 MG TAB PO SCH (20:30)
[2022-09-20] MEDS: atenoloL 25 MG TAB PO SCH (20:30)
[2022-09-20] MEDS: traZODone 50 MG TAB PO SCH (20:30)
[2022-09-21] MEDS: IPRATROPIUM 0.5MG/ALBUTEROL 2.5MG INH SOL UD 3ML (DUONEB) NEB SCH ×4 (01:20→20:39)
[2022-09-21 06:00] VITALS: BP 108/68; TEMP 98.1; O2SAT 97
[2022-09-21 06:14] LABS: BASO # 0.1 10^3/uL (0.0-0.2); BASO % 0.6 % (0.0-1.0); EOS # 0.1 10^3/uL (0.0-0.5); EOS % 1.3 % (0.0-3.0); HEMATOCRIT 27.4 % (42.0-52.0); HEMOGLOBIN 8.5 g/dl (13.5-17.5); LYMPH # 0.6 10^3/uL (1.5-5.0); LYMPH % 8.1 % (24.0-44.0); MEAN CORPUSCULAR HEMOGLOBIN 31.5 pg (27.0-33.0); MEAN CORPUSCULAR VOLUME 101.5 fl (80.0-96.0); MONO # 0.9 10^3/uL (0.0-0.8); NEUTROPHILS # 6.1 10^3/uL (1.5-8.5); NEUTROPHILS % 78.5 % (36.0-66.0); PLATELET COUNT, AUTOMATED 154 10^3/uL (150-450); WHITE BLOOD COUNT 7.8 10^3/uL (4.0-10.0)
[2022-09-21 06:47] LABS: CALCIUM LEVEL 8.6 MG/DL (8.3-10.6); CREATININE FOR GFR 2.93 MG/DL (0.70-1.30); GLOMERULAR FILTRATION RATE 21.7 (>35); POTASSIUM SERUM 3.8 MMOL/L (3.5-5.1)
[2022-09-21 09:11] VITALS: O2SAT 97
[2022-09-21] MEDS ORDERED: FUROSEMIDE 80 MG TAB PO ONE (10:00)
[2022-09-21 10:12] LABS: PHOSPHORUS LEVEL 4.8 MG/DL (2.4-5.1)
[2022-09-21] MEDS: DOXYCYCLINE HYCLATE 100MG TABLET PO SCH ×2 (10:17→21:09)
[2022-09-21] MEDS: CALCITRIOL 0.25 MCG CAP (S0169) PO SCH (10:17)
[2022-09-21] MEDS: OMEPRAZOLE 20MG CAP PO SCH (10:17)
[2022-09-21] MEDS: APIXABAN 2.5 MG TAB (ELIQUIS) PO SCH ×2 (10:17→21:09)
[2022-09-21] MEDS: guaiFENesin 200 MG TAB PO PRN ×2 (10:17→21:09)
[2022-09-21] MEDS: allopurinoL 300 MG TAB PO SCH (10:17)
[2022-09-21 14:00] VITALS: BP 137/77; TEMP 97.9; O2SAT 92
[2022-09-21] MEDS: cefTRIAXone SOD 1 GM in D5W MINI-BAG PLUS 50 ML IV SCH (15:53)
[2022-09-21 20:40] VITALS: BP 129/77; TEMP 98.6; O2SAT 94
[2022-09-21] MEDS: atenoloL 25 MG TAB PO SCH (21:09)
[2022-09-21] MEDS: traZODone 50 MG TAB PO SCH (21:09)
[2022-09-21] MEDS: ATORVASTATIN 20 MG TAB PO SCH (21:09)
[2022-09-21] MEDS: ACETAMINOPHEN TAB 650MG DOSE (2X325MG) PO PRN (22:40)
[2022-09-21] MEDS: RAMELTEON 8 MG TAB (ROZEREM) PO PRN (23:48)
[2022-09-22] MEDS: IPRATROPIUM 0.5MG/ALBUTEROL 2.5MG INH SOL UD 3ML (DUONEB) NEB SCH ×3 (01:10→13:54)
[2022-09-22 06:00] VITALS: BP 103/68; TEMP 97.9; O2SAT 95
[2022-09-22 06:23] LABS: BASO % 0.4 % (0.0-1.0); EOS # 0.2 10^3/uL (0.0-0.5); EOS % 2.4 % (0.0-3.0); HEMATOCRIT 25.9 % (42.0-52.0); HEMOGLOBIN 8.1 g/dl (13.5-17.5); LYMPH # 0.7 10^3/uL (1.5-5.0); LYMPH % 8.8 % (24.0-44.0); MEAN CORPUSCULAR HGB CONC 31.3 g/dl (32.0-36.5); MEAN CORPUSCULAR VOLUME 99.2 fl (80.0-96.0); MONO # 0.9 10^3/uL (0.0-0.8); MONO % 11.7 % (2.0-8.0); NEUTROPHILS # 5.8 10^3/uL (1.5-8.5); NEUTROPHILS % 76.2 % (36.0-66.0); PLATELET COUNT, AUTOMATED 167 10^3/uL (150-450); RED BLOOD COUNT 2.61 10^6/uL (4.30-6.10); WHITE BLOOD COUNT 7.6 10^3/uL (4.0-10.0)
[2022-09-22 06:53] LABS: ALBUMIN 2.8 G/DL (3.2-5.2); CALCIUM LEVEL 8.7 MG/DL (8.3-10.6); CREATININE FOR GFR 2.91 MG/DL (0.70-1.30); GLOMERULAR FILTRATION RATE 21.9 (>35); PHOSPHORUS LEVEL 4.8 MG/DL (2.4-5.1); POTASSIUM SERUM 3.6 MMOL/L (3.5-5.1)
[2022-09-22] MEDS: CALCITRIOL 0.25 MCG CAP (S0169) PO SCH (08:33)
[2022-09-22] MEDS: allopurinoL 300 MG TAB PO SCH (08:33)
[2022-09-22] MEDS: guaiFENesin 200 MG TAB PO PRN ×2 (08:33→18:25)
[2022-09-22] MEDS: FUROSEMIDE 80 MG TAB PO SCH (08:33)
[2022-09-22] MEDS: DOXYCYCLINE HYCLATE 100MG TABLET PO SCH ×2 (08:33→21:46)
[2022-09-22] MEDS: OMEPRAZOLE 20MG CAP PO SCH (08:33)
[2022-09-22] MEDS: APIXABAN 2.5 MG TAB (ELIQUIS) PO SCH ×2 (08:33→21:46)
[2022-09-22] MEDS ORDERED: FERRIC CARBOXYMALTOSE INJ 750 MG, VIAL MATE ADAPTER 1 EACH in NS 250 ML IV ONE (12:00)
[2022-09-22 14:00] VITALS: BP 100/64; TEMP 97.9; O2SAT 95
[2022-09-22] MEDS: cefTRIAXone SOD 1 GM in D5W MINI-BAG PLUS 50 ML IV SCH (14:56)
[2022-09-22 15:50] VITALS: BP_SYST 92; BP_SYST 99; BP_DIAS 60; BP_DIAS 63; TEMP 97.9; O2SAT 94
[2022-09-22 16:23] VITALS: BP 110/62; TEMP 97.9; O2SAT 93
[2022-09-22] MEDS ORDERED: ANUSOL HC CREAM 30GM TOP PRN (17:00)
[2022-09-22 18:14] VITALS: BP 112/60; TEMP 97.9; O2SAT 94
[2022-09-22] MEDS: CALCIUM ACETATE 667MG GELCAP PO SCH (18:25)
[2022-09-22] MEDS: atenoloL 25 MG TAB PO SCH (21:45)
[2022-09-22] MEDS: traZODone 50 MG TAB PO SCH (21:46)
[2022-09-22] MEDS: ATORVASTATIN 20 MG TAB PO SCH (21:46)
[2022-09-22 21:50] VITALS: BP 137/81; TEMP 98.2; O2SAT 91
[2022-09-23] VITALS (7 sets, daily range): BP systolic 76–126; BP diastolic 42–76; TEMP 97.9–98.1; O2SAT 90–96
[2022-09-23 06:29] LABS: BASO % 0.6 % (0.0-1.0); EOS # 0.2 10^3/uL (0.0-0.5); EOS % 2.5 % (0.0-3.0); HEMATOCRIT 27.6 % (42.0-52.0); HEMOGLOBIN 8.6 g/dl (13.5-17.5); LYMPH # 0.6 10^3/uL (1.5-5.0); LYMPH % 8.5 % (24.0-44.0); MEAN CORPUSCULAR HEMOGLOBIN 31.2 pg (27.0-33.0); MEAN CORPUSCULAR HGB CONC 31.2 g/dl (32.0-36.5); MONO # 0.9 10^3/uL (0.0-0.8); NEUTROPHILS # 5.1 10^3/uL (1.5-8.5); NEUTROPHILS % 74.8 % (36.0-66.0); PLATELET COUNT, AUTOMATED 173 10^3/uL (150-450); RED BLOOD COUNT 2.76 10^6/uL (4.30-6.10); WHITE BLOOD COUNT 6.9 10^3/uL (4.0-10.0)
[2022-09-23 06:52] LABS: CREATININE FOR GFR 2.71 MG/DL (0.70-1.30); GLOMERULAR FILTRATION RATE 23.8 (>35); POTASSIUM SERUM 3.5 MMOL/L (3.5-5.1)
[2022-09-23] MEDS: CALCIUM ACETATE 667MG GELCAP PO SCH ×2 (08:00→18:31)
[2022-09-23] MEDS: allopurinoL 300 MG TAB PO SCH (08:57)
[2022-09-23] MEDS: CALCITRIOL 0.25 MCG CAP (S0169) PO SCH (08:57)
[2022-09-23] MEDS: CEFDINIR 300 MG CAP (OMNICEF) PO SCH (08:57)
[2022-09-23] MEDS: OMEPRAZOLE 20MG CAP PO SCH (08:57)
[2022-09-23] MEDS: DOXYCYCLINE HYCLATE 100MG TABLET PO SCH ×2 (08:58→20:49)
[2022-09-23] MEDS: FUROSEMIDE 80 MG TAB PO SCH (09:00)
[2022-09-23] MEDS ORDERED: MIDODRINE 5 MG TAB PO ONE (09:05)
[2022-09-23] MEDS: APIXABAN 2.5 MG TAB (ELIQUIS) PO SCH ×2 (09:20→20:49)
[2022-09-23] MEDS: IPRATROPIUM 0.5MG/ALBUTEROL 2.5MG INH SOL UD 3ML (DUONEB) NEB SCH ×4 (11:13→23:11)
[2022-09-23] MEDS: guaiFENesin ER 600 MG TAB PO SCH ×2 (11:45→20:49)
[2022-09-23] MEDS: traZODone 50 MG TAB PO SCH (20:49)
[2022-09-23] MEDS: ATORVASTATIN 20 MG TAB PO SCH (20:49)
[2022-09-24] MEDS: ACETAMINOPHEN TAB 650MG DOSE (2X325MG) PO PRN (01:38)
[2022-09-24] MEDS: IPRATROPIUM 0.5MG/ALBUTEROL 2.5MG INH SOL UD 3ML (DUONEB) NEB SCH ×4 (04:32→19:12)
[2022-09-24 05:38] LABS: BASO % 0.3 % (0.0-1.0); EOS # 0.2 10^3/uL (0.0-0.5); EOS % 2.6 % (0.0-3.0); HEMATOCRIT 26.3 % (42.0-52.0); HEMOGLOBIN 8.2 g/dl (13.5-17.5); LYMPH # 0.5 10^3/uL (1.5-5.0); LYMPH % 9.4 % (24.0-44.0); MEAN CORPUSCULAR HEMOGLOBIN 31.2 pg (27.0-33.0); MEAN CORPUSCULAR HGB CONC 31.2 g/dl (32.0-36.5); MONO # 0.8 10^3/uL (0.0-0.8); MONO % 13.4 % (2.0-8.0); NEUTROPHILS # 4.2 10^3/uL (1.5-8.5); NEUTROPHILS % 73.6 % (36.0-66.0); PLATELET COUNT, AUTOMATED 177 10^3/uL (150-450); RED BLOOD COUNT 2.63 10^6/uL (4.30-6.10); WHITE BLOOD COUNT 5.7 10^3/uL (4.0-10.0)
[2022-09-24] MEDS ORDERED: MOM 30ML SUSPENSION UDC PO PRN (05:40)
[2022-09-24] MEDS ORDERED: MIRALAX *UNIT DOSE* 17GM PACKET PO PRN (05:40)
[2022-09-24] MEDS ORDERED: SENNA 8.6 MG TAB (SENOKOT) PO PRN (05:40)
[2022-09-24 06:00] VITALS: BP 99/60; TEMP 97.8; O2SAT 92
[2022-09-24 06:07] LABS: CALCIUM LEVEL 8.7 MG/DL (8.3-10.6); CREATININE FOR GFR 2.44 MG/DL (0.70-1.30); GLOMERULAR FILTRATION RATE 26.8 (>35); POTASSIUM SERUM 3.2 MMOL/L (3.5-5.1)
[2022-09-24] MEDS ORDERED: POTASSIUM CHLORIDE 10MEQ SR TABLET PO ONE (07:15)
[2022-09-24] MEDS: allopurinoL 300 MG TAB PO SCH (07:50)
[2022-09-24] MEDS: APIXABAN 2.5 MG TAB (ELIQUIS) PO SCH ×2 (07:51→21:00)
[2022-09-24] MEDS: OMEPRAZOLE 20MG CAP PO SCH (07:51)
[2022-09-24] MEDS: CALCIUM ACETATE 667MG GELCAP PO SCH ×2 (07:51→17:58)
[2022-09-24] MEDS: CEFDINIR 300 MG CAP (OMNICEF) PO SCH (07:51)
[2022-09-24] MEDS: CALCITRIOL 0.25 MCG CAP (S0169) PO SCH (07:51)
[2022-09-24] MEDS: guaiFENesin ER 600 MG TAB PO SCH ×2 (07:51→21:01)
[2022-09-24] MEDS: FERROUS SULFATE 325MG TAB PO SCH (07:51)
[2022-09-24] MEDS ORDERED: MIDODRINE 5 MG TAB PO SCH (10:25)
[2022-09-24 11:11] VITALS: BP 128/81
[2022-09-24 11:13] VITALS: BP 131/82
[2022-09-24 11:15] VITALS: BP 124/77
[2022-09-24] MEDS: DOCUSATE SODIUM 100MG CAPSULE PO SCH ×2 (11:16→21:01)
[2022-09-24] MEDS: MIRALAX *UNIT DOSE* 17GM PACKET PO SCH (11:16)
[2022-09-24] MEDS: ANUSOL HC CREAM 30GM TOP PRN (11:16)
[2022-09-24] MEDS: MIDODRINE 5 MG TAB PO SCH ×2 (11:17→16:00)
[2022-09-24] MEDS: predniSONE 20 MG TAB PO SCH (11:17)
[2022-09-24 14:00] VITALS: BP 142/89; TEMP 97.9; O2SAT 91
[2022-09-24 20:50] VITALS: BP 143/89; TEMP 97.7; O2SAT 93
[2022-09-24] MEDS: traZODone 50 MG TAB PO SCH (20:59)
[2022-09-24] MEDS: ATORVASTATIN 20 MG TAB PO SCH (21:01)
[2022-09-25] MEDS: IPRATROPIUM 0.5MG/ALBUTEROL 2.5MG INH SOL UD 3ML (DUONEB) NEB SCH ×2 (02:08→07:06)
[2022-09-25] MEDS: RAMELTEON 8 MG TAB (ROZEREM) PO PRN (02:58)
[2022-09-25 04:46] VITALS: BP 135/87; TEMP 98.1; O2SAT 96
[2022-09-25 05:48] VITALS: BP 121/78; TEMP 97.9; O2SAT 93
[2022-09-25 05:50] LABS: BASO % 0.1 % (0.0-1.0); HEMATOCRIT 26.6 % (42.0-52.0); HEMOGLOBIN 8.1 g/dl (13.5-17.5); LYMPH # 0.3 10^3/uL (1.5-5.0); LYMPH % 2.9 % (24.0-44.0); MEAN CORPUSCULAR HEMOGLOBIN 30.8 pg (27.0-33.0); MEAN CORPUSCULAR HGB CONC 30.5 g/dl (32.0-36.5); MEAN CORPUSCULAR VOLUME 101.1 fl (80.0-96.0); MONO # 0.5 10^3/uL (0.0-0.8); MONO % 5.4 % (2.0-8.0); NEUTROPHILS # 8.5 10^3/uL (1.5-8.5); PLATELET COUNT, AUTOMATED 194 10^3/uL (150-450); RED BLOOD COUNT 2.63 10^6/uL (4.30-6.10); WHITE BLOOD COUNT 9.3 10^3/uL (4.0-10.0)
[2022-09-25 06:37] LABS: CALCIUM LEVEL 9.1 MG/DL (8.3-10.6); CREATININE FOR GFR 2.2 MG/DL (0.70-1.30); GLOMERULAR FILTRATION RATE 30.2 (>35); POTASSIUM SERUM 4.6 MMOL/L (3.5-5.1)
[2022-09-25] MEDS: MIDODRINE 5 MG TAB PO SCH ×2 (08:00→16:00)
[2022-09-25 09:22] VITALS: BP 118/68
[2022-09-25] MEDS: FERROUS SULFATE 325MG TAB PO SCH (09:28)
[2022-09-25] MEDS: CALCITRIOL 0.25 MCG CAP (S0169) PO SCH (09:28)
[2022-09-25] MEDS: predniSONE 20 MG TAB PO SCH (09:28)
[2022-09-25] MEDS: CALCIUM ACETATE 667MG GELCAP PO SCH ×2 (09:28→17:33)
[2022-09-25] MEDS: DOCUSATE SODIUM 100MG CAPSULE PO SCH ×2 (09:28→21:19)
[2022-09-25] MEDS: MIRALAX *UNIT DOSE* 17GM PACKET PO SCH (09:28)
[2022-09-25] MEDS: guaiFENesin ER 600 MG TAB PO SCH ×2 (09:28→21:19)
[2022-09-25] MEDS: OMEPRAZOLE 20MG CAP PO SCH (09:29)
[2022-09-25] MEDS: ANUSOL HC CREAM 30GM TOP PRN (09:29)
[2022-09-25] MEDS: allopurinoL 300 MG TAB PO SCH (09:29)
[2022-09-25] MEDS: APIXABAN 2.5 MG TAB (ELIQUIS) PO SCH ×2 (09:29→21:19)
[2022-09-25] MEDS ORDERED: DIGOXIN 0.25 MG TAB PO ONE (12:10)
[2022-09-25] MEDS ORDERED: MIDODRINE 5 MG TAB PO PRN (12:30)
[2022-09-25 12:43] VITALS: BP 130/91; O2SAT 92
[2022-09-25] MEDS: LEVALBUTEROL HFA 45MCG/ACT 15GM INHALER INH SCH ×2 (13:33→19:40)
[2022-09-25] MEDS: FUROSEMIDE 80 MG TAB PO SCH (13:40)
[2022-09-25 14:00] VITALS: BP 131/90; TEMP 98.1; O2SAT 93
[2022-09-25 20:00] VITALS: BP 130/86; TEMP 98.6; O2SAT 94
[2022-09-25] MEDS: ATORVASTATIN 20 MG TAB PO SCH (21:19)
[2022-09-25] MEDS: traZODone 50 MG TAB PO SCH (21:19)
[2022-09-26] MEDS: LEVALBUTEROL HFA 45MCG/ACT 15GM INHALER INH SCH ×4 (01:04→19:40)
[2022-09-26] MEDS: RAMELTEON 8 MG TAB (ROZEREM) PO PRN (01:21)
[2022-09-26 06:00] VITALS: BP 122/69; TEMP 97.9; O2SAT 95
[2022-09-26 06:05] LABS: BASO % 0.2 % (0.0-1.0); EOS % 0.1 % (0.0-3.0); HEMATOCRIT 28.1 % (42.0-52.0); HEMOGLOBIN 8.7 g/dl (13.5-17.5); LYMPH # 0.4 10^3/uL (1.5-5.0); LYMPH % 3.9 % (24.0-44.0); MEAN CORPUSCULAR HEMOGLOBIN 31.1 pg (27.0-33.0); MEAN CORPUSCULAR VOLUME 100.4 fl (80.0-96.0); MONO # 0.9 10^3/uL (0.0-0.8); MONO % 8.5 % (2.0-8.0); NEUTROPHILS # 9.5 10^3/uL (1.5-8.5); NEUTROPHILS % 86.6 % (36.0-66.0); PLATELET COUNT, AUTOMATED 225 10^3/uL (150-450); WHITE BLOOD COUNT 10.9 10^3/uL (4.0-10.0)
[2022-09-26 06:39] LABS: CALCIUM LEVEL 9.7 MG/DL (8.3-10.6); CREATININE FOR GFR 2.22 MG/DL (0.70-1.30); GLOMERULAR FILTRATION RATE 29.9 (>35); POTASSIUM SERUM 4.3 MMOL/L (3.5-5.1)
[2022-09-26] MEDS: MIRALAX *UNIT DOSE* 17GM PACKET PO SCH (09:24)
[2022-09-26] MEDS: DIGOXIN 0.125 MG TAB PO SCH (09:25)
[2022-09-26] MEDS: DOCUSATE SODIUM 100MG CAPSULE PO SCH ×2 (09:25→21:40)
[2022-09-26] MEDS: allopurinoL 300 MG TAB PO SCH (09:25)
[2022-09-26] MEDS: guaiFENesin ER 600 MG TAB PO SCH ×2 (09:25→21:40)
[2022-09-26] MEDS: OMEPRAZOLE 20MG CAP PO SCH (09:25)
[2022-09-26] MEDS: FUROSEMIDE 80 MG TAB PO SCH (09:25)
[2022-09-26] MEDS: CALCITRIOL 0.25 MCG CAP (S0169) PO SCH (09:25)
[2022-09-26] MEDS: APIXABAN 2.5 MG TAB (ELIQUIS) PO SCH ×2 (09:25→21:40)
[2022-09-26] MEDS: predniSONE 20 MG TAB PO SCH (09:25)
[2022-09-26] MEDS: FERROUS SULFATE 325MG TAB PO SCH (09:25)
[2022-09-26 09:26] VITALS: BP 117/69
[2022-09-26] MEDS: MIDODRINE 5 MG TAB PO SCH ×3 (09:26→15:32)
[2022-09-26] MEDS: CALCIUM ACETATE 667MG GELCAP PO SCH ×2 (09:26→17:27)
[2022-09-26] MEDS: ADVAIR HFA 45/21MCG INHALER INH SCH ×2 (11:09→19:40)
[2022-09-26 12:01] VITALS: BP 133/85
[2022-09-26 14:00] VITALS: BP 130/83; TEMP 97.9; O2SAT 95
[2022-09-26 15:32] VITALS: BP 130/80
[2022-09-26 20:00] VITALS: BP 125/72; TEMP 98.6; O2SAT 96
[2022-09-26] MEDS: ATORVASTATIN 20 MG TAB PO SCH (21:40)
[2022-09-26] MEDS: traZODone 50 MG TAB PO SCH (21:40)
[2022-09-27] MEDS: LEVALBUTEROL HFA 45MCG/ACT 15GM INHALER INH SCH ×4 (02:00→19:44)
[2022-09-27] MEDS: ANUSOL HC CREAM 30GM TOP PRN (05:15)
[2022-09-27 05:33] VITALS: BP 119/72; TEMP 98.1; O2SAT 95
[2022-09-27] MEDS ORDERED: diphenhydrAMINE 50MG CAP PO ONE (07:00)
[2022-09-27 07:02] LABS: HEMATOCRIT 29.6 % (42.0-52.0); HEMOGLOBIN 9.2 g/dl (13.5-17.5); MEAN CORPUSCULAR HEMOGLOBIN 31.1 pg (27.0-33.0); MEAN CORPUSCULAR HGB CONC 31.1 g/dl (32.0-36.5); PLATELET COUNT, AUTOMATED 223 10^3/uL (150-450); RED BLOOD COUNT 2.96 10^6/uL (4.30-6.10); WHITE BLOOD COUNT 9.9 10^3/uL (4.0-10.0)
[2022-09-27] MEDS: ADVAIR HFA 45/21MCG INHALER INH SCH ×2 (07:07→20:00)
[2022-09-27 07:44] LABS: CALCIUM LEVEL 9.4 MG/DL (8.3-10.6); CREATININE FOR GFR 2.3 MG/DL (0.70-1.30); GLOMERULAR FILTRATION RATE 28.7 (>35); POTASSIUM SERUM 4.2 MMOL/L (3.5-5.1)
[2022-09-27] MEDS: MIDODRINE 5 MG TAB PO SCH ×3 (08:00→15:01)
[2022-09-27] MEDS: MIRALAX *UNIT DOSE* 17GM PACKET PO SCH (09:43)
[2022-09-27] MEDS: predniSONE 20 MG TAB PO SCH (09:45)
[2022-09-27] MEDS: DOCUSATE SODIUM 100MG CAPSULE PO SCH ×2 (09:46→22:29)
[2022-09-27] MEDS: CALCITRIOL 0.25 MCG CAP (S0169) PO SCH (09:46)
[2022-09-27] MEDS: CALCIUM ACETATE 667MG GELCAP PO SCH (09:46)
[2022-09-27] MEDS: METOPROLOL TART 12.5 MG PER 1/2 TAB PO SCH ×3 (09:46→22:24)
[2022-09-27] MEDS: FUROSEMIDE 80 MG TAB PO SCH (09:47)
[2022-09-27] MEDS: DIGOXIN 0.125 MG TAB PO SCH (09:47)
[2022-09-27] MEDS: OMEPRAZOLE 20MG CAP PO SCH (09:47)
[2022-09-27] MEDS: guaiFENesin ER 600 MG TAB PO SCH ×2 (09:48→22:28)
[2022-09-27] MEDS: diphenhydrAMINE 25MG CAP PO PRN (09:48)
[2022-09-27] MEDS: allopurinoL 300 MG TAB PO SCH (09:48)
[2022-09-27] MEDS: APIXABAN 2.5 MG TAB (ELIQUIS) PO SCH ×2 (09:48→22:28)
[2022-09-27] MEDS: FERROUS SULFATE 325MG TAB PO SCH (09:50)
[2022-09-27 14:00] VITALS: BP 113/77; TEMP 97.5; O2SAT 92
[2022-09-27 19:51] VITALS: BP 108/69
[2022-09-27] MEDS: RAMELTEON 8 MG TAB (ROZEREM) PO PRN (22:23)
[2022-09-27] MEDS: ATORVASTATIN 20 MG TAB PO SCH (22:25)
[2022-09-27] MEDS: traZODone 50 MG TAB PO SCH (22:28)
[2022-09-28] MEDS: diphenhydrAMINE 25MG CAP PO PRN ×2 (00:42→12:36)
[2022-09-28] MEDS: LEVALBUTEROL HFA 45MCG/ACT 15GM INHALER INH SCH ×4 (01:14→19:38)
[2022-09-28] MEDS: ACETAMINOPHEN TAB 650MG DOSE (2X325MG) PO PRN ×2 (01:23→12:37)
[2022-09-28 06:00] VITALS: BP 109/69; TEMP 98.1; O2SAT 95
[2022-09-28] MEDS: METOPROLOL TART 12.5 MG PER 1/2 TAB PO SCH ×3 (06:30→21:09)
[2022-09-28 07:30] LABS: HEMATOCRIT 29.8 % (42.0-52.0); HEMOGLOBIN 9.3 g/dl (13.5-17.5); MEAN CORPUSCULAR HEMOGLOBIN 31.3 pg (27.0-33.0); MEAN CORPUSCULAR HGB CONC 31.2 g/dl (32.0-36.5); MEAN CORPUSCULAR VOLUME 100.3 fl (80.0-96.0); PLATELET COUNT, AUTOMATED 230 10^3/uL (150-450); RED BLOOD COUNT 2.97 10^6/uL (4.30-6.10); WHITE BLOOD COUNT 9.3 10^3/uL (4.0-10.0)
[2022-09-28] MEDS: ADVAIR HFA 45/21MCG INHALER INH SCH ×2 (07:44→19:38)
[2022-09-28] MEDS: OMEPRAZOLE 20MG CAP PO SCH (07:45)
[2022-09-28] MEDS: CALCITRIOL 0.25 MCG CAP (S0169) PO SCH (07:45)
[2022-09-28] MEDS: FUROSEMIDE 80 MG TAB PO SCH (07:45)
[2022-09-28] MEDS: APIXABAN 2.5 MG TAB (ELIQUIS) PO SCH ×2 (07:46→21:09)
[2022-09-28] MEDS: DOCUSATE SODIUM 100MG CAPSULE PO SCH ×2 (07:46→21:09)
[2022-09-28] MEDS: allopurinoL 300 MG TAB PO SCH (07:46)
[2022-09-28] MEDS: MIDODRINE 5 MG TAB PO SCH ×3 (07:46→17:34)
[2022-09-28] MEDS: guaiFENesin ER 600 MG TAB PO SCH ×2 (07:46→21:09)
[2022-09-28] MEDS: DIGOXIN 0.125 MG TAB PO SCH (07:46)
[2022-09-28] MEDS: MIRALAX *UNIT DOSE* 17GM PACKET PO SCH (07:47)
[2022-09-28] MEDS: predniSONE 20 MG TAB PO SCH (07:47)
[2022-09-28 07:55] LABS: CALCIUM LEVEL 8.7 MG/DL (8.3-10.6); CREATININE FOR GFR 2.45 MG/DL (0.70-1.30); GLOMERULAR FILTRATION RATE 26.7 (>35); POTASSIUM SERUM 3.7 MMOL/L (3.5-5.1)
[2022-09-28] MEDS: traZODone 50 MG TAB PO SCH (21:09)
[2022-09-28] MEDS: ATORVASTATIN 20 MG TAB PO SCH (21:09)
[2022-09-29] MEDS: LEVALBUTEROL HFA 45MCG/ACT 15GM INHALER INH SCH ×4 (01:11→19:45)
[2022-09-29] MEDS: diphenhydrAMINE 25MG CAP PO PRN ×2 (04:11→09:36)
[2022-09-29] MEDS: METOPROLOL TART 12.5 MG PER 1/2 TAB PO SCH ×3 (05:57→21:26)
[2022-09-29 05:58] LABS: HEMATOCRIT 31.1 % (42.0-52.0); HEMOGLOBIN 9.4 g/dl (13.5-17.5); MEAN CORPUSCULAR HEMOGLOBIN 30.6 pg (27.0-33.0); MEAN CORPUSCULAR HGB CONC 30.2 g/dl (32.0-36.5); MEAN CORPUSCULAR VOLUME 101.3 fl (80.0-96.0); PLATELET COUNT, AUTOMATED 245 10^3/uL (150-450); RED BLOOD COUNT 3.07 10^6/uL (4.30-6.10); WHITE BLOOD COUNT 9.8 10^3/uL (4.0-10.0)
[2022-09-29 06:00] VITALS: BP 102/59; TEMP 97.9; O2SAT 96
[2022-09-29 06:16] LABS: CALCIUM LEVEL 8.9 MG/DL (8.3-10.6); CREATININE FOR GFR 2.57 MG/DL (0.70-1.30); GLOMERULAR FILTRATION RATE 25.3 (>35); POTASSIUM SERUM 3.9 MMOL/L (3.5-5.1)
[2022-09-29] MEDS: ADVAIR HFA 45/21MCG INHALER INH SCH ×2 (07:12→19:45)
[2022-09-29] MEDS: MIDODRINE 5 MG TAB PO SCH ×3 (08:55→15:05)
[2022-09-29] MEDS: CALCITRIOL 0.25 MCG CAP (S0169) PO SCH (08:55)
[2022-09-29] MEDS: DIGOXIN 0.125 MG TAB PO SCH (08:55)
[2022-09-29] MEDS: OMEPRAZOLE 20MG CAP PO SCH (08:55)
[2022-09-29] MEDS: guaiFENesin ER 600 MG TAB PO SCH ×2 (08:56→21:26)
[2022-09-29] MEDS: allopurinoL 300 MG TAB PO SCH (08:56)
[2022-09-29] MEDS: predniSONE 10MG TAB PO SCH (08:56)
[2022-09-29] MEDS: APIXABAN 2.5 MG TAB (ELIQUIS) PO SCH ×2 (08:56→21:26)
[2022-09-29] MEDS: MIRALAX *UNIT DOSE* 17GM PACKET PO SCH (08:56)
[2022-09-29] MEDS: FUROSEMIDE 80 MG TAB PO SCH (08:56)
[2022-09-29] MEDS: DOCUSATE SODIUM 100MG CAPSULE PO SCH ×2 (08:56→21:26)
[2022-09-29 12:29] VITALS: BP 117/80
[2022-09-29] MEDS: traZODone 50 MG TAB PO SCH (21:26)
[2022-09-29] MEDS: ATORVASTATIN 20 MG TAB PO SCH (21:26)
[2022-09-30] MEDS: LEVALBUTEROL HFA 45MCG/ACT 15GM INHALER INH SCH ×4 (01:50→19:39)
[2022-09-30] MEDS: diphenhydrAMINE 25MG CAP PO PRN ×2 (02:36→08:48)
[2022-09-30] MEDS: METOPROLOL TART 12.5 MG PER 1/2 TAB PO SCH ×3 (05:19→21:27)
[2022-09-30 06:00] VITALS: BP 132/87; TEMP 97.9; O2SAT 94
[2022-09-30 06:07] LABS: HEMATOCRIT 31.7 % (42.0-52.0); HEMOGLOBIN 9.9 g/dl (13.5-17.5); MEAN CORPUSCULAR HEMOGLOBIN 31.6 pg (27.0-33.0); MEAN CORPUSCULAR HGB CONC 31.2 g/dl (32.0-36.5); MEAN CORPUSCULAR VOLUME 101.3 fl (80.0-96.0); PLATELET COUNT, AUTOMATED 244 10^3/uL (150-450); RED BLOOD COUNT 3.13 10^6/uL (4.30-6.10); WHITE BLOOD COUNT 9.9 10^3/uL (4.0-10.0)
[2022-09-30 06:32] LABS: CALCIUM LEVEL 8.9 MG/DL (8.3-10.6); CREATININE FOR GFR 2.64 MG/DL (0.70-1.30); GLOMERULAR FILTRATION RATE 24.5 (>35)
[2022-09-30] MEDS: ADVAIR HFA 45/21MCG INHALER INH SCH ×2 (07:32→19:39)
[2022-09-30 08:41] VITALS: BP 97/63
[2022-09-30] MEDS: predniSONE 10MG TAB PO SCH (08:48)
[2022-09-30] MEDS: CALCITRIOL 0.25 MCG CAP (S0169) PO SCH (08:48)
[2022-09-30] MEDS: OMEPRAZOLE 20MG CAP PO SCH (08:48)
[2022-09-30] MEDS: allopurinoL 300 MG TAB PO SCH (08:49)
[2022-09-30] MEDS: MIRALAX *UNIT DOSE* 17GM PACKET PO SCH (08:49)
[2022-09-30] MEDS: DIGOXIN 0.125 MG TAB PO SCH (08:49)
[2022-09-30] MEDS: guaiFENesin ER 600 MG TAB PO SCH ×2 (08:49→21:27)
[2022-09-30] MEDS: DOCUSATE SODIUM 100MG CAPSULE PO SCH ×2 (08:49→21:27)
[2022-09-30] MEDS: APIXABAN 2.5 MG TAB (ELIQUIS) PO SCH ×2 (08:49→21:27)
[2022-09-30] MEDS: MIDODRINE 5 MG TAB PO SCH ×3 (08:49→15:41)
[2022-09-30 15:40] VITALS: BP 128/40
[2022-09-30] MEDS: traZODone 50 MG TAB PO SCH (21:27)
[2022-09-30] MEDS: ATORVASTATIN 20 MG TAB PO SCH (21:27)
[2022-09-30 21:28] VITALS: BP 128/79; TEMP 97.9; O2SAT 96
[2022-10-01] MEDS: LEVALBUTEROL HFA 45MCG/ACT 15GM INHALER INH SCH ×4 (01:08→20:00)
[2022-10-01 05:48] VITALS: BP 119/72; TEMP 97.5; O2SAT 94
[2022-10-01] MEDS: METOPROLOL TART 12.5 MG PER 1/2 TAB PO SCH ×3 (05:53→21:44)
[2022-10-01 06:20] LABS: HEMATOCRIT 32.9 % (42.0-52.0); HEMOGLOBIN 10.1 g/dl (13.5-17.5); MEAN CORPUSCULAR HEMOGLOBIN 31.2 pg (27.0-33.0); MEAN CORPUSCULAR HGB CONC 30.7 g/dl (32.0-36.5); MEAN CORPUSCULAR VOLUME 101.5 fl (80.0-96.0); PLATELET COUNT, AUTOMATED 233 10^3/uL (150-450); RED BLOOD COUNT 3.24 10^6/uL (4.30-6.10); WHITE BLOOD COUNT 8.8 10^3/uL (4.0-10.0)
[2022-10-01 06:54] LABS: CALCIUM LEVEL 9.2 MG/DL (8.3-10.6); CREATININE FOR GFR 2.36 MG/DL (0.70-1.30); GLOMERULAR FILTRATION RATE 27.9 (>35); POTASSIUM SERUM 4.4 MMOL/L (3.5-5.1)
[2022-10-01] MEDS: ADVAIR HFA 45/21MCG INHALER INH SCH ×2 (07:31→20:10)
[2022-10-01] MEDS: APIXABAN 2.5 MG TAB (ELIQUIS) PO SCH ×2 (10:07→21:42)
[2022-10-01] MEDS: DOCUSATE SODIUM 100MG CAPSULE PO SCH ×2 (10:07→21:43)
[2022-10-01] MEDS: DIGOXIN 0.125 MG TAB PO SCH (10:08)
[2022-10-01] MEDS: CALCITRIOL 0.25 MCG CAP (S0169) PO SCH (10:08)
[2022-10-01] MEDS: predniSONE 10MG TAB PO SCH (10:09)
[2022-10-01] MEDS: MIDODRINE 5 MG TAB PO SCH ×3 (10:09→16:00)
[2022-10-01] MEDS: MIRALAX *UNIT DOSE* 17GM PACKET PO SCH (10:10)
[2022-10-01] MEDS: guaiFENesin ER 600 MG TAB PO SCH ×2 (10:10→21:42)
[2022-10-01] MEDS: OMEPRAZOLE 20MG CAP PO SCH (10:10)
[2022-10-01] MEDS: allopurinoL 300 MG TAB PO SCH (10:10)
[2022-10-01] MEDS: traZODone 50 MG TAB PO SCH (21:42)
[2022-10-01] MEDS: ATORVASTATIN 20 MG TAB PO SCH (21:43)
[2022-10-02] MEDS: LEVALBUTEROL HFA 45MCG/ACT 15GM INHALER INH SCH ×4 (01:01→19:42)
[2022-10-02 06:00] VITALS: BP 130/73; TEMP 97.9; O2SAT 96
[2022-10-02] MEDS: METOPROLOL TART 12.5 MG PER 1/2 TAB PO SCH ×3 (06:01→22:15)
[2022-10-02 06:21] LABS: HEMATOCRIT 32.4 % (42.0-52.0); HEMOGLOBIN 9.9 g/dl (13.5-17.5); MEAN CORPUSCULAR HEMOGLOBIN 31.3 pg (27.0-33.0); MEAN CORPUSCULAR HGB CONC 30.6 g/dl (32.0-36.5); MEAN CORPUSCULAR VOLUME 102.5 fl (80.0-96.0); PLATELET COUNT, AUTOMATED 217 10^3/uL (150-450); RED BLOOD COUNT 3.16 10^6/uL (4.30-6.10); WHITE BLOOD COUNT 9.8 10^3/uL (4.0-10.0)
[2022-10-02 06:53] LABS: CALCIUM LEVEL 8.7 MG/DL (8.3-10.6); CREATININE FOR GFR 2.26 MG/DL (0.70-1.30); GLOMERULAR FILTRATION RATE 29.3 (>35); POTASSIUM SERUM 4.3 MMOL/L (3.5-5.1)
[2022-10-02] MEDS: ADVAIR HFA 45/21MCG INHALER INH SCH ×2 (07:24→19:42)
[2022-10-02] MEDS: MIDODRINE 5 MG TAB PO SCH ×3 (08:00→16:00)
[2022-10-02] MEDS: MIRALAX *UNIT DOSE* 17GM PACKET PO SCH (08:14)
[2022-10-02 08:15] VITALS: BP 115/71
[2022-10-02] MEDS: predniSONE 10MG TAB PO SCH (08:15)
[2022-10-02] MEDS: CALCITRIOL 0.25 MCG CAP (S0169) PO SCH (08:15)
[2022-10-02] MEDS: DOCUSATE SODIUM 100MG CAPSULE PO SCH ×2 (08:15→20:20)
[2022-10-02] MEDS: allopurinoL 300 MG TAB PO SCH (08:15)
[2022-10-02] MEDS: APIXABAN 2.5 MG TAB (ELIQUIS) PO SCH ×2 (08:16→20:20)
[2022-10-02] MEDS: OMEPRAZOLE 20MG CAP PO SCH (08:16)
[2022-10-02] MEDS: DIGOXIN 0.125 MG TAB PO SCH (08:16)
[2022-10-02] MEDS: guaiFENesin ER 600 MG TAB PO SCH ×2 (08:16→20:21)
[2022-10-02] MEDS: diphenhydrAMINE 25MG CAP PO PRN (10:35)
[2022-10-02] MEDS ORDERED: OLANZapine INTRAMUSCULAR 10MG VIAL IM PRN (13:05)
[2022-10-02 13:46] VITALS: BP 107/68; TEMP 97.7; O2SAT 94
[2022-10-02] MEDS: RAMELTEON 8 MG TAB (ROZEREM) PO PRN (20:20)
[2022-10-02] MEDS: traZODone 50 MG TAB PO SCH (20:20)
[2022-10-02] MEDS: ATORVASTATIN 20 MG TAB PO SCH (20:21)
[2022-10-03] MEDS: LEVALBUTEROL HFA 45MCG/ACT 15GM INHALER INH SCH ×4 (01:46→19:28)
[2022-10-03] MEDS: diphenhydrAMINE 25MG CAP PO PRN ×2 (04:30→22:07)
[2022-10-03 06:00] VITALS: BP 123/71; TEMP 97.5; O2SAT 94
[2022-10-03] MEDS: METOPROLOL TART 12.5 MG PER 1/2 TAB PO SCH ×3 (06:08→20:02)
[2022-10-03 06:13] LABS: HEMATOCRIT 30.8 % (42.0-52.0); HEMOGLOBIN 9.3 g/dl (13.5-17.5); MEAN CORPUSCULAR HEMOGLOBIN 31.6 pg (27.0-33.0); MEAN CORPUSCULAR HGB CONC 30.2 g/dl (32.0-36.5); MEAN CORPUSCULAR VOLUME 104.8 fl (80.0-96.0); PLATELET COUNT, AUTOMATED 193 10^3/uL (150-450); RED BLOOD COUNT 2.94 10^6/uL (4.30-6.10); WHITE BLOOD COUNT 9.3 10^3/uL (4.0-10.0)
[2022-10-03] MEDS: ADVAIR HFA 45/21MCG INHALER INH SCH ×2 (06:15→19:28)
[2022-10-03 06:36] LABS: CALCIUM LEVEL 8.5 MG/DL (8.3-10.6); CREATININE FOR GFR 2.4 MG/DL (0.70-1.30); GLOMERULAR FILTRATION RATE 27.3 (>35); POTASSIUM SERUM 4.1 MMOL/L (3.5-5.1)
[2022-10-03] MEDS: MIRALAX *UNIT DOSE* 17GM PACKET PO SCH (09:00)
[2022-10-03] MEDS: DOCUSATE SODIUM 100MG CAPSULE PO SCH ×2 (09:00→20:00)
[2022-10-03] MEDS: guaiFENesin ER 600 MG TAB PO SCH ×2 (10:23→20:00)
[2022-10-03] MEDS: CALCITRIOL 0.25 MCG CAP (S0169) PO SCH (10:24)
[2022-10-03] MEDS: APIXABAN 2.5 MG TAB (ELIQUIS) PO SCH ×2 (10:24→20:00)
[2022-10-03] MEDS: allopurinoL 300 MG TAB PO SCH (10:24)
[2022-10-03] MEDS: predniSONE 10MG TAB PO SCH (10:24)
[2022-10-03] MEDS: OMEPRAZOLE 20MG CAP PO SCH (10:24)
[2022-10-03 10:31] VITALS: BP 78/38
[2022-10-03] MEDS: MIDODRINE 5 MG TAB PO SCH ×3 (10:31→16:00)
[2022-10-03] MEDS: DIGOXIN 0.125 MG TAB PO SCH (10:36)
[2022-10-03 10:41] VITALS: BP 100/58
[2022-10-03 12:22] VITALS: BP 102/58
[2022-10-03] MEDS: traZODone 50 MG TAB PO SCH (20:00)
[2022-10-03] MEDS: ATORVASTATIN 20 MG TAB PO SCH (20:00)
[2022-10-03] MEDS: RAMELTEON 8 MG TAB (ROZEREM) PO PRN (20:00)
[2022-10-03] MEDS: ACETAMINOPHEN TAB 650MG DOSE (2X325MG) PO PRN (20:01)
[2022-10-04] MEDS: LEVALBUTEROL HFA 45MCG/ACT 15GM INHALER INH SCH ×2 (02:00→07:31)
[2022-10-04 05:06] VITALS: BP 135/73
[2022-10-04] MEDS: diphenhydrAMINE 25MG CAP PO PRN (05:06)
[2022-10-04] MEDS: METOPROLOL TART 12.5 MG PER 1/2 TAB PO SCH (05:06)
[2022-10-04 05:59] VITALS: BP 135/73; TEMP 97.5; O2SAT 98
[2022-10-04] MEDS: ADVAIR HFA 45/21MCG INHALER INH SCH (07:31)
[2022-10-04] MEDS: MIDODRINE 5 MG TAB PO SCH (08:00)
[2022-10-04] MEDS: guaiFENesin ER 600 MG TAB PO SCH (09:41)
[2022-10-04] MEDS: MIRALAX *UNIT DOSE* 17GM PACKET PO SCH (09:41)
[2022-10-04] MEDS: predniSONE 10MG TAB PO SCH (09:41)
[2022-10-04] MEDS: CALCITRIOL 0.25 MCG CAP (S0169) PO SCH (09:41)
[2022-10-04] MEDS: APIXABAN 2.5 MG TAB (ELIQUIS) PO SCH (09:42)
[2022-10-04] MEDS: allopurinoL 300 MG TAB PO SCH (09:42)
[2022-10-04] MEDS: OMEPRAZOLE 20MG CAP PO SCH (09:42)
[2022-10-04] MEDS: DOCUSATE SODIUM 100MG CAPSULE PO SCH (09:42)
[2022-10-04] MEDS: DIGOXIN 0.125 MG TAB PO SCH (09:44)
[2022-10-04] MEDS ORDERED: MIRA1POW3 PO (10:19)
[2022-10-04] MEDS ORDERED: DIGO0.123 PO (10:19)
[2022-10-04] MEDS ORDERED: METO1TAB87 PO (10:19)
[2022-10-04] MEDS ORDERED: MIDO5TA PO (10:19)
[2022-10-04] MEDS ORDERED: PRED10TA2 PO (10:19)
[2022-10-04] MEDS ORDERED: COLA100C5 PO (10:19)
[2022-10-04] MEDS ORDERED: LEVAINH INH (10:19)
[2022-10-04] MEDS ORDERED: MUCI600T31 PO (10:19)
[2022-10-04] MEDS ORDERED: ADVA45AE INH (10:19)
== END 2022-10-04 11:46 | DRG 193 ==
LOC: M ED 12:15 → EDBD 12:15 → EDSEX 12:15 → M ED INP 16:10 → M MSPAV 17:07
PROVIDERS: ADMIT Family Medicine; ATTEND Internal Medicine
PROC: B246ZZZ Ultrasonography of Right and Left Heart (ICD-10-PCS; principal; 2022-09-20)
DX: J18.9 Pneumonia, unspecified organism (principal); I50.33 Acute on chronic diastolic (congestive) heart failure; I13.0 Hypertensive heart and chronic kidney disease with heart failure and stage 1 through stage 4 chronic kidney disease, or unspecified chronic kidney disease; N17.9 Acute kidney failure, unspecified; N18.4 Chronic kidney disease, stage 4 (severe); N25.81 Secondary hyperparathyroidism of renal origin; J98.11 Atelectasis; J44.1 Chronic obstructive pulmonary disease with (acute) exacerbation; E87.20 Acidosis, unspecified; I48.91 Unspecified atrial fibrillation; I49.5 Sick sinus syndrome; I73.9 Peripheral vascular disease, unspecified; R53.1 Weakness; Z66 Do not resuscitate; M10.9 Gout, unspecified; E78.5 Hyperlipidemia, unspecified; K21.9 Gastro-esophageal reflux disease without esophagitis; D63.1 Anemia in chronic kidney disease; F32.A Depression, unspecified; D50.9 Iron deficiency anemia, unspecified; F41.9 Anxiety disorder, unspecified; E87.6 Hypokalemia; K59.00 Constipation, unspecified; L29.9 Pruritus, unspecified; I27.20 Pulmonary hypertension, unspecified; F03.90 Unspecified dementia, unspecified severity, without behavioral disturbance, psychotic disturbance, mood disturbance, and anxiety; I95.9 Hypotension, unspecified; I08.3 Combined rheumatic disorders of mitral, aortic and tricuspid valves; Z95.0 Presence of cardiac pacemaker; Z96.651 Presence of right artificial knee joint; Z79.01 Long term (current) use of anticoagulants; Z79.899 Other long term (current) drug therapy; Z87.442 Personal history of urinary calculi; Z85.46 Personal history of malignant neoplasm of prostate; Z87.891 Personal history of nicotine dependence

== ENCOUNTER → 2022-10-07 | Outpatient (REF) ==
[~2022-10-07] MED LIST changes: +ADVA45AE INH; +ALLO300T2 PO; +ATEN25TA PO; +ATOR1TAB21 PO; +DIGO0.123 PO; +DILT240C83 PO; +DOXY100T27 PO; +HYDR-643 PO; +LEVAINH INH; +METO1TAB87 PO; +MIDO5TA PO; +MIRA1POW3 PO; +MUCI600T31 PO; +PRED10TA2 PO
== END ==
PROVIDERS: ATTEND Physician Assistant
DX: N18.9 Chronic kidney disease, unspecified (principal); Z53.8 Procedure and treatment not carried out for other reasons

== ENCOUNTER → 2022-10-12 | Outpatient (REF) ==
[2022-10-12 11:46] LABS: HEMATOCRIT 34.2 % (42.0-52.0); HEMOGLOBIN 10.2 g/dl (13.5-17.5); MEAN CORPUSCULAR HEMOGLOBIN 31.9 pg (27.0-33.0); MEAN CORPUSCULAR HGB CONC 29.8 g/dl (32.0-36.5); MEAN CORPUSCULAR VOLUME 106.9 fl (80.0-96.0); PLATELET COUNT, AUTOMATED 176 10^3/uL (150-450); WHITE BLOOD COUNT 9.4 10^3/uL (4.0-10.0)
[2022-10-12 12:15] LABS: CALCIUM LEVEL 8.4 MG/DL (8.3-10.6); GLOMERULAR FILTRATION RATE 33.7 (>35); POTASSIUM SERUM 4.5 MMOL/L (3.5-5.1)
== END ==
PROVIDERS: ATTEND Physician Assistant
DX: N18.9 Chronic kidney disease, unspecified (principal)

== ENCOUNTER → 2022-10-21 | Outpatient (REF) ==
[2022-10-21 09:08] LABS: BASO # 0.1 10^3/uL (0.0-0.2); BASO % 0.7 % (0.0-1.0); EOS # 0.2 10^3/uL (0.0-0.5); EOS % 2.6 % (0.0-3.0); HEMATOCRIT 35.3 % (42.0-52.0); HEMOGLOBIN 10.5 g/dl (13.5-17.5); LYMPH # 1.5 10^3/uL (1.5-5.0); LYMPH % 19.4 % (24.0-44.0); MEAN CORPUSCULAR HEMOGLOBIN 31.9 pg (27.0-33.0); MEAN CORPUSCULAR HGB CONC 29.7 g/dl (32.0-36.5); MEAN CORPUSCULAR VOLUME 107.3 fl (80.0-96.0); MONO # 1.1 10^3/uL (0.0-0.8); MONO % 14.3 % (2.0-8.0); NEUTROPHILS # 4.8 10^3/uL (1.5-8.5); NEUTROPHILS % 62.5 % (36.0-66.0); PLATELET COUNT, AUTOMATED 181 10^3/uL (150-450); RED BLOOD COUNT 3.29 10^6/uL (4.30-6.10); WHITE BLOOD COUNT 7.7 10^3/uL (4.0-10.0)
[2022-10-21 09:31] LABS: URIC ACID 4.6 MG/DL (3.7-9.2)
[2022-10-21 09:34] LABS: ALBUMIN 2.8 G/DL (3.2-5.2); CREATININE FOR GFR 2.21 MG/DL (0.70-1.30); GLOMERULAR FILTRATION RATE 30.1 (>35); PHOSPHORUS LEVEL 3.7 MG/DL (2.4-5.1); POTASSIUM SERUM 4.3 MMOL/L (3.5-5.1)
[2022-10-21 09:35] LABS: PTH INTACT 86.6 PG/ML (18.5-88.0)
== END ==
PROVIDERS: ATTEND Physician Assistant
DX: N18.9 Chronic kidney disease, unspecified (principal)

== ENCOUNTER → 2022-10-24 | Outpatient (REF) ==
[2022-10-24 09:19] LABS: HEMATOCRIT 33.6 % (42.0-52.0); HEMOGLOBIN 10.2 g/dl (13.5-17.5); MEAN CORPUSCULAR HGB CONC 30.4 g/dl (32.0-36.5); MEAN CORPUSCULAR VOLUME 105.3 fl (80.0-96.0); PLATELET COUNT, AUTOMATED 204 10^3/uL (150-450); RED BLOOD COUNT 3.19 10^6/uL (4.30-6.10); WHITE BLOOD COUNT 6.3 10^3/uL (4.0-10.0)
[2022-10-24 09:36] LABS: CALCIUM LEVEL 8.6 MG/DL (8.3-10.6); CREATININE FOR GFR 2.15 MG/DL (0.70-1.30); POTASSIUM SERUM 4.2 MMOL/L (3.5-5.1)
== END ==
PROVIDERS: ATTEND Physician Assistant
DX: I50.9 Heart failure, unspecified (principal)

== ENCOUNTER → 2022-10-24 | Outpatient (REF) | payer MEDICARE | PROVIDERS: ATTEND Internal Medicine | DX: I51.7 Cardiomegaly (principal); I50.9 Heart failure, unspecified ==

== ENCOUNTER → 2022-10-26 | Outpatient (REF) | payer MEDICARE ==
[2022-10-26 08:13] LABS: HEMATOCRIT 33.9 % (42.0-52.0); HEMOGLOBIN 10.3 g/dl (13.5-17.5); MEAN CORPUSCULAR HEMOGLOBIN 32.1 pg (27.0-33.0); MEAN CORPUSCULAR HGB CONC 30.4 g/dl (32.0-36.5); MEAN CORPUSCULAR VOLUME 105.6 fl (80.0-96.0); PLATELET COUNT, AUTOMATED 210 10^3/uL (150-450); RED BLOOD COUNT 3.21 10^6/uL (4.30-6.10)
[2022-10-26 08:49] LABS: CALCIUM LEVEL 8.2 MG/DL (8.3-10.6); CREATININE FOR GFR 2.26 MG/DL (0.70-1.30); GLOMERULAR FILTRATION RATE 29.3 (>35)
== END ==
PROVIDERS: ATTEND Physician Assistant
DX: N18.9 Chronic kidney disease, unspecified (principal)

== ENCOUNTER → 2022-10-28 | Outpatient (REF) ==
[2022-10-28 09:42] LABS: CALCIUM LEVEL 7.9 MG/DL (8.3-10.6); CREATININE FOR GFR 2.16 MG/DL (0.70-1.30); GLOMERULAR FILTRATION RATE 30.9 (>35); POTASSIUM SERUM 3.6 MMOL/L (3.5-5.1)
== END ==
PROVIDERS: ATTEND Physician Assistant
DX: I50.9 Heart failure, unspecified (principal)

== ENCOUNTER → 2022-10-28 | Outpatient (REF) | payer MEDICARE | PROVIDERS: ATTEND Internal Medicine | DX: I50.9 Heart failure, unspecified (principal); J98.11 Atelectasis; J90 Pleural effusion, not elsewhere classified ==

== ENCOUNTER → 2022-10-31 | Outpatient (REF) ==
[2022-10-31 09:31] LABS: CALCIUM LEVEL 8.6 MG/DL (8.3-10.6); CREATININE FOR GFR 2.05 MG/DL (0.70-1.30); GLOMERULAR FILTRATION RATE 32.8 (>35); POTASSIUM SERUM 3.9 MMOL/L (3.5-5.1)
== END ==
PROVIDERS: ATTEND Physician Assistant
DX: I50.9 Heart failure, unspecified (principal)

== ENCOUNTER → 2022-11-02 | Outpatient (REF) | payer MEDICARE | PROVIDERS: ATTEND Internal Medicine | DX: J90 Pleural effusion, not elsewhere classified (principal); Z95.0 Presence of cardiac pacemaker ==

== ENCOUNTER → 2022-11-07 | Outpatient (REF) ==
[2022-11-07 17:57] LABS: HEMATOCRIT 35.4 % (42.0-52.0); HEMOGLOBIN 10.6 g/dl (13.5-17.5); MEAN CORPUSCULAR HEMOGLOBIN 31.9 pg (27.0-33.0); MEAN CORPUSCULAR HGB CONC 29.9 g/dl (32.0-36.5); MEAN CORPUSCULAR VOLUME 106.6 fl (80.0-96.0); PLATELET COUNT, AUTOMATED 235 10^3/uL (150-450); RED BLOOD COUNT 3.32 10^6/uL (4.30-6.10); WHITE BLOOD COUNT 9.7 10^3/uL (4.0-10.0)
[2022-11-07 18:31] LABS: CALCIUM LEVEL 8.2 MG/DL (8.3-10.6); CREATININE FOR GFR 2.13 MG/DL (0.70-1.30); GLOMERULAR FILTRATION RATE 31.4 (>35); POTASSIUM SERUM 3.8 MMOL/L (3.5-5.1)
== END ==
PROVIDERS: ATTEND Physician Assistant
DX: J90 Pleural effusion, not elsewhere classified (principal)

== ENCOUNTER → 2022-11-07 | Outpatient (REF) | payer MEDICARE | PROVIDERS: ATTEND Internal Medicine | DX: J90 Pleural effusion, not elsewhere classified (principal) ==

== ENCOUNTER 2022-12-08 23:50 | Inpatient (IN) | payer MEDICARE ==
[~2022-12-08] VITALS: Ht 177.8 cm; Wt 75.0 kg
[2022-12-09 00:47] LABS: BASO # 0.1 10^3/uL (0.0-0.2); BASO % 0.7 % (0.0-1.0); EOS % 0.5 % (0.0-3.0); HEMATOCRIT 32.6 % (42.0-52.0); HEMOGLOBIN 10.1 g/dl (13.5-17.5); LYMPH # 0.4 10^3/uL (1.5-5.0); LYMPH % 5.4 % (24.0-44.0); MEAN CORPUSCULAR HEMOGLOBIN 32.1 pg (27.0-33.0); MEAN CORPUSCULAR VOLUME 103.5 fl (80.0-96.0); MONO % 12.8 % (2.0-8.0); NEUTROPHILS # 6.1 10^3/uL (1.5-8.5); NEUTROPHILS % 80.2 % (36.0-66.0); PLATELET COUNT, AUTOMATED 201 10^3/uL (150-450); RED BLOOD COUNT 3.15 10^6/uL (4.30-6.10); WHITE BLOOD COUNT 7.6 10^3/uL (4.0-10.0)
[2022-12-09 01:19] LABS: ETHYL ALCOHOL (ETHANOL) < 0.003 % (0.000-0.010); RSV AMPLIFICATION NEGATIVE (NEGATIVE)
[2022-12-09 01:21] LABS: ACETAMINOPHEN LEVEL < 2.0 UG/ML (10.0-20.0); ALBUMIN 2.9 G/DL (3.2-5.2); ALKALINE PHOSPHATASE 207 U/L (46-116); ALT/SGPT 18 U/L (7.0-40); AST/SGOT 22 U/L (<34); BILIRUBIN,DIRECT 0.2 MG/DL (<0.4); BILIRUBIN,TOTAL 0.4 MG/DL (0.3-1.2); BLOOD UREA NITROGEN 51 MG/DL (9-23); CALCIUM LEVEL 8.7 MG/DL (8.3-10.6); CARBON DIOXIDE LEVEL 25 MMOL/L (20-31); CHLORIDE LEVEL 108 MMOL/L (98-107); CPK CREATINE PHOSPHOKINASE 148 U/L (46-171); CREATININE FOR GFR 2.51 MG/DL (0.70-1.30); GLUCOSE, FASTING 201 MG/DL (74-106); MB/CK RELATIVE INDEX 3.37 (< OR =4); POTASSIUM SERUM 4.7 MMOL/L (3.5-5.1); SALICYLATE LEVEL < 3.0 MG/DL (<30); SODIUM LEVEL 143 MMOL/L (136-145); TOTAL PROTEIN 6.1 G/DL (5.7-8.2)
[2022-12-09] MEDS ORDERED: atenoloL 25 MG TAB PO ONE (02:20)
[2022-12-09 02:30] LABS: AMPHETAMINES LEVEL URINE NEGATIVE (NEGATIVE); BARBITURATES URINE NEGATIVE (NEGATIVE); BENZODIAZEPINES URINE NEGATIVE (NEGATIVE); COCAINE METABOLITE URINE NEGATIVE (NEGATIVE); METHADONE URINE NEGATIVE (NEGATIVE)
[2022-12-09 02:31] LABS: CANNABINOIDS URINE NEGATIVE (NEGATIVE); OPIATES URINE NEGATIVE (NEGATIVE); PHENCYCLIDINE URINE NEGATIVE (NEGATIVE)
[2022-12-09] MEDS ORDERED: DEXTROSE 50% 50ML SYRINGE IV PRN (04:00)
[2022-12-09] MEDS ORDERED: ALBUTEROL SULFATE 2.5MG/0.5ML INH NEB SOLN NEB PRN (04:00)
[2022-12-09] MEDS ORDERED: GLUCOSE 4GM CHEW TABLET PO PRN (04:00)
[2022-12-09] MEDS ORDERED: GLUCAGON INJ 1MG VIAL SC PRN (04:00)
[2022-12-09] MEDS ORDERED: MIRA1POW3 PO (04:12)
[2022-12-09] MEDS ORDERED: MIDO5TA PO (04:12)
[2022-12-09] MEDS ORDERED: DIGO0.123 PO (04:12)
[2022-12-09] MEDS ORDERED: METO1TAB87 PO (04:12)
[2022-12-09] MEDS ORDERED: ADVA45AE INH (04:12)
[2022-12-09] MEDS ORDERED: DOCU100C16 PO (04:12)
[2022-12-09] MEDS ORDERED: HOME MED LIST COMPLETE! XX SCH (04:15)
[2022-12-09] MEDS ORDERED: ASPIRIN 81MG CHEW TABLET PO ONE (05:00)
[2022-12-09] MEDS: NS 1,000 ML IV SCH ×2 (05:23→17:33)
[2022-12-09] MEDS: INSULIN LISPRO (NovoLOG) PER UNIT SC SCH ×3 (06:00→17:47)
[2022-12-09 06:23] LABS: CALCIUM LEVEL 8.4 MG/DL (8.3-10.6); CREATININE FOR GFR 2.47 MG/DL (0.70-1.30); GLOMERULAR FILTRATION RATE 26.4 (>35); POTASSIUM SERUM 4.6 MMOL/L (3.5-5.1)
[2022-12-09 07:58] LABS: BASO # 0.1 10^3/uL (0.0-0.2); BASO % 0.8 % (0.0-1.0); EOS % 0.6 % (0.0-3.0); HEMATOCRIT 30.8 % (42.0-52.0); HEMOGLOBIN 9.4 g/dl (13.5-17.5); LYMPH # 0.5 10^3/uL (1.5-5.0); LYMPH % 8.1 % (24.0-44.0); MEAN CORPUSCULAR HEMOGLOBIN 31.8 pg (27.0-33.0); MEAN CORPUSCULAR HGB CONC 30.5 g/dl (32.0-36.5); MEAN CORPUSCULAR VOLUME 104.1 fl (80.0-96.0); MONO # 0.8 10^3/uL (0.0-0.8); MONO % 13.6 % (2.0-8.0); NEUTROPHILS # 4.7 10^3/uL (1.5-8.5); NEUTROPHILS % 76.4 % (36.0-66.0); PLATELET COUNT, AUTOMATED 167 10^3/uL (150-450); RED BLOOD COUNT 2.96 10^6/uL (4.30-6.10); WHITE BLOOD COUNT 6.2 10^3/uL (4.0-10.0)
[2022-12-09 08:07] LABS: ERYTHROCYTE SEDIMENTATION RATE 39 mm/hr (0-20)
[2022-12-09] MEDS: IPRATROPIUM 0.5MG/ALBUTEROL 2.5MG INH SOL UD 3ML (DUONEB) NEB SCH ×3 (08:31→20:15)
[2022-12-09 08:32] VITALS: O2SAT 97
[2022-12-09 08:32] LABS: CK-MB VALUE MASS 5.2 NG/ML (<3.6)
[2022-12-09] MEDS ORDERED: allopurinoL 300 MG TAB PO SCH (09:00)
[2022-12-09] MEDS ORDERED: OMEPRAZOLE 20MG CAP PO SCH (09:00)
[2022-12-09] MEDS ORDERED: MIRALAX *UNIT DOSE* 17GM PACKET PO SCH (09:00)
[2022-12-09] MEDS ORDERED: CALCITRIOL 0.25 MCG CAP (S0169) PO SCH (09:00)
[2022-12-09] MEDS ORDERED: DIGOXIN 0.125 MG TAB PO SCH (09:00)
[2022-12-09] MEDS ORDERED: ASPIRIN 81MG CHEW TABLET PO SCH (09:00)
[2022-12-09 09:19] LABS: ALBUMIN 2.5 G/DL (3.2-5.2); BILIRUBIN,TOTAL 0.4 MG/DL (0.3-1.2); CALCIUM LEVEL 8.2 MG/DL (8.3-10.6); CREATININE FOR GFR 2.47 MG/DL (0.70-1.30); GLOMERULAR FILTRATION RATE 26.4 (>35); MB/CK RELATIVE INDEX 3.88 (< OR =4); TOTAL PROTEIN 5.3 G/DL (5.7-8.2)
[2022-12-09] MEDS ORDERED: MIDODRINE 5 MG TAB PO PRN (10:50)
[2022-12-09] MEDS: DOCUSATE SODIUM 100MG CAPSULE PO SCH ×2 (11:32→22:46)
[2022-12-09] MEDS: APIXABAN 2.5 MG TAB (ELIQUIS) PO SCH ×2 (11:32→22:46)
[2022-12-09] MEDS: METOPROLOL TART 12.5 MG PER 1/2 TAB PO SCH ×2 (11:34→22:46)
[2022-12-09] MEDS: ADVAIR HFA 45/21MCG INHALER INH SCH ×2 (13:39→20:25)
[2022-12-09] MEDS ORDERED: ATORVASTATIN 20 MG TAB PO SCH (21:00)
[2022-12-09] MEDS ORDERED: traZODone 50 MG TAB PO SCH (21:00)
[2022-12-09] MEDS ORDERED: ACETAMINOPHEN 500 MG TAB PO SCH (21:00)
[2022-12-09] MEDS ORDERED: PILL CUTTER 1 EACH XX ONE (22:40)
[2022-12-09 22:46] VITALS: BP 168/107
[2022-12-09 23:00] VITALS: TEMP 98.4
[2022-12-10] VITALS: BP 160/82; O2SAT 98
[2022-12-10] MEDS: INSULIN LISPRO (NovoLOG) PER UNIT SC SCH
[2022-12-10] MEDS ORDERED: PHENYLEPHRINE 10MG/ML 1ML VIAL As Ordered ONE (00:55)
[2022-12-10] MEDS ORDERED: EPINEPHrine 1MG/10ML SYRINGE 1.5IN As Ordered ONE (01:04)
[2022-12-10] MEDS ORDERED: EPINEPHrine 1MG/10ML SYRINGE 1.5IN ONE (01:26)
[2022-12-10] MEDS ORDERED: AMIODARONE 150MG/3ML VIAL ONE (01:26)
[2022-12-10] MEDS ORDERED: CALCIUM CHLORIDE 10% 1 GM/10 ML SYR ONE (01:26)
[2022-12-10] MEDS ORDERED: SODIUM BICARBONATE 8.4% INJ 50ML SYRINGE ONE (01:26)
== END 2022-12-10 01:27 | disposition expired ==
LOC: M ED 23:50 → EDBD 23:50 → M ED INP 12-09 03:56
PROVIDERS: ADMIT Internal Medicine; ATTEND General Practice
PROC: B246ZZZ Ultrasonography of Right and Left Heart (ICD-10-PCS; principal; 2022-12-09)
DX: I21.A1 Myocardial infarction type 2 (principal); F03.911 Unspecified dementia, unspecified severity, with agitation; F03.92 Unspecified dementia, unspecified severity, with psychotic disturbance; N17.9 Acute kidney failure, unspecified; G93.40 Encephalopathy, unspecified; N18.4 Chronic kidney disease, stage 4 (severe); J90 Pleural effusion, not elsewhere classified; R44.3 Hallucinations, unspecified; I48.91 Unspecified atrial fibrillation; I27.20 Pulmonary hypertension, unspecified; I46.9 Cardiac arrest, cause unspecified; I08.0 Rheumatic disorders of both mitral and aortic valves; I49.01 Ventricular fibrillation; D63.8 Anemia in other chronic diseases classified elsewhere; R56.9 Unspecified convulsions; I73.9 Peripheral vascular disease, unspecified; M10.9 Gout, unspecified; Z85.46 Personal history of malignant neoplasm of prostate; Z92.3 Personal history of irradiation; Z95.0 Presence of cardiac pacemaker; Z96.651 Presence of right artificial knee joint; Z79.01 Long term (current) use of anticoagulants; Z79.899 Other long term (current) drug therapy